=== PATIENT | male | born 1990 | race Caucasian/White ===

== ENCOUNTER 2018-01-25 13:51 | Emergency (ER) | payer OTHER, MEDICAID, SELFPAY ==
[2018-01-25 13:53] VITALS: BP 116/72; PULSE 72; RESP 18; TEMP 37.3; O2SAT 99; BMI 21.8
[2018-01-25] MEDS: Naproxen 500 MG Tablet PO (14:20)
--- NOTE | 2018-01-25 14:20 | RAD_ITS ---
STUDY: X-RAY - CERVICAL SPINE REASON FOR EXAM: Male, 27 years old. Injury. Pain. TECHNIQUE: 3 view(s) of the cervical spine were obtained. COMPARISON: None FINDINGS: Normal anterior atlantoaxial articulation. Normal odontoid process. Normal cervical lordosis. Normal vertebral bodies and endplates. Normal disc space heights. Normal visualized intervertebral neuroforamina. The soft tissue structures are unremarkable. RAD/Cerv Spine 2 or 3 Views IMPRESSION: Normal x-ray examination of the visualized cervical spine. Electronically Signed: Jorge L Barth MD at 14:48 EDT , Service support ,
--- NOTE | 2018-01-25 15:00 | ED.DCSUM_ITS ---
- ER Visit Summary Date of Service: 01/25/18 Chief Complaint: Neck pain History of Present Illness: The patient is a 27 M with no primary care physician. He reports that a great came down the back of his neck at work 2 days ago. Reports he is a sharp, stabbing pain is 1010 at worst 910 currently. Is worsened by walking and relieved by sleeping. He denies any paresthesias in his arms. No loss of consciousness. Physical Examination: Vitals: Stable. Afebrile. Neck: Mild diffuse tenderness palpation over his entire C-spine. There is an abrasion at approximately C7. There is no soft tissue swelling or contusion. Full ROM without difficulty. Back: No vertebral tenderness. General: A&O x 3. NAD. Cardiovascular exam: Regular rate and rhythm, no murmur, rub or gallop. Respiratory exam: Chest nontender. No crepitus. Clear to auscultation bilaterally. No wheezes or stridor. Abdominal exam: Soft, nontender, nondistended, normal bowel sounds. No pain in RUQ or LUQ specifically. No peritoneal signs. Extremity: Atraumatic. No pain with range of motion. Test Results: C-spine x-ray is negative. Emergency Department Course and Treatment: Patient is treated with naproxen. Treatment Plan: Patient will be discharged with naproxen. Instructed to follow- up with Workmen[employer] Compensation in 1 week for another exam. It is unclear whether he uses [facility] or [facility]. We were unable to reach his work to find this out either. He is given the numbers for both places. Disposition: To home in improved and stable condition. Impression: 1. Neck contusion. 2. Cervical strain. This note was generated with [employer] dictation software. It may contain incorrect words, spelling, and punctuation that were not noted in review of the chart prior to signing ED Disposition - Plan for ED Patient: Disposition: Home or Assisted Living Chief Complaint: Other, Pain/Inj Instructions: ED Sprain Strain Neck Prescriptions: Naproxen [Naprosyn] 500 mg PO BID #14 tablet [facility]errals: [facility] OF PHYSICIANS] - 1 Week [facility] [GROUP OF PHYSICIANS] - 1 Week
[2018-01-25 15:13] VITALS: BP 119/70; PULSE 69; RESP 16; O2SAT 100
--- NOTE | 2018-01-25 15:19 | ED.RN ---
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 LEFT MESSAGE AT [phone].
== END 2018-01-25 15:21 | disposition home or self-care (01) ==
PROVIDERS: Emergency Provider Emergency Medicine
DX: S16.1XXA Strain of muscle, fascia and tendon at neck level, initial encounter (principal); S10.93XA Contusion of unspecified part of neck, initial encounter; W22.8XXA Striking against or struck by other objects, initial encounter; Y93.9 Activity, unspecified; Y92.9 Unspecified place or not applicable; Y99.9 Unspecified external cause status; Z72.0 Tobacco use
CPT/HCPCS: 72040; 99283

== ENCOUNTER 2018-06-04 05:05 | Emergency (ER) | payer MEDICAID, SELFPAY ==
[2018-06-04 05:06] VITALS: BP 135/80; PULSE 99; RESP 17; TEMP 36.6; O2SAT 99; BMI 23.0
--- NOTE | 2018-06-04 05:16 | ED.DCSUM_ITS ---
- ER Visit Summary Date of Service: 06/04/18 Chief Complaint: [] Skin rash History of Present Illness: The patient is a 27 M complaining of skin rash for last 2 days gradual onset continuous diffuse hives and welts. He spent the night at his friend's house and thinks he might have picked up something. He does remember bit by bugs. No new exposures. He has been using hydrocortisone cream with no relief. No Benadryl usage. Never had this before. Physical Examination: [] Vital signs reviewed General: Well-nourished well-developed Head: Normocephalic atraumatic Eyes: Pupils equal round and reactive to light extraocular movements intact ENT: TMs clear no hemotympanum no trauma Neck: Nontender full range of motion Cardiovascular: Regular rate rhythm no murmurs normal S1-S2 Respiratory: No distress clear to auscultation bilaterally chest nontender Abdomen: Soft nontender nondistended normal bowel sounds no masses Back: Nontender no CVA tenderness Extremities: Nontender active range of motion ?4 extremities no trauma Skin: Patient has intermittent welts on his arms legs chest and back and abdomen. They are mild to moderate in nature. No infection Neuro alert oriented cranial nerves II through XII intact normal strength sensation reflexes Test Results: [] Emergency Department Course and Treatment: [] Given Benadryl in the department and prednisone. We will continue these at home. Will be put on a prednisone taper Treatment Plan: [] Disposition: [] Impression: [] Urticaria This note was generated with [employer] dictation software. It may contain incorrect words, spelling, and punctuation that were not noted in review of the chart prior to signing ED Disposition - Plan for ED Patient: Chief Complaint: Rash Referrals: Care Physician,No Primary [Primary Care Provider] -
--- NOTE | 2018-06-04 05:16 | ED.DEP ---
ED Disposition - Plan for ED Patient: Disposition: Home or Assisted Living Chief Complaint: Rash Instructions: ED Urticaria Prescriptions: Prednisone [Deltasone] 60 mg PO DAILY #15 tab Referrals: Yehuda Duffy MD [STAFF PHYSICIAN] -
[2018-06-04] MEDS: predniSONE 20 MG Tablet 60 MG PO (05:22)
[2018-06-04] MEDS: DiphenhydrAMINE 25 MG Capsule 50 MG PO (05:22)
== END 2018-06-04 05:25 | disposition home or self-care (01) ==
PROVIDERS: Emergency Provider Emergency Medicine
DX: L50.9 Urticaria, unspecified (principal); J45.909 Unspecified asthma, uncomplicated; Z72.0 Tobacco use
CPT/HCPCS: 99283

== ENCOUNTER 2018-07-02 15:00 | Outpatient (RCR) | payer MEDICAID, SELFPAY ==
--- NOTE | 2018-02-28 13:59 | HP.OTEVAL ---
Patient's Visit Information PAT BONILLA is a 27 year old M, referred to Occupational Therapy by DI TIM, with a diagnosis of left hand laceration with tendon and nerve IF/MF. Date of Evaluation: 02/26/18 Occupational Therapist: Katelin Clifton, OTR/Gen, CHT - Subjective Subjective: Pt attends OT session following a left tendon and digital nerve repair- pt fell while walking in his house with a glass jar- lacerating his tendon and nerve- pt underwent sx on February. Pt in need of custom dorsal blocking orthosis and following zone 3 FDS/FDP repair. Pt is limited with functional use of right hand at this time. - Pain left hand 3 - Objective Objective/Observation: pt painful with touch - ROM Shoulder: Right/left WNL Elbow: Right/left WNL Forearm: Right/left WNL Wrist: right limited- left WNL ROM Comments: Limited due to healing digital nerver repair and FDS/FDP repair-Digits Not tested at this time- will follow zone III protocol - Strength Strength Comments: will test at later date - Sensation Index: 3.84 Middle: 4.08 Rin.61 Little: 3.61 Sensation Comments: guarded with touch to hand and tip of finger - Hand/Wrist Evaluation Total Score of Pain & Functional Sections: 95 - Goals Goal:100% adherence to protocol: Yes Comment: Zone 3 tendon / digital nerve repair Goal:Daily scar massage when approriate: Yes Goal:ROM equal to unaffected hand: Yes Goal:Chamber Worker/Pinch strength at least 75% of unaffected hand: Yes Goal:No pain with affected hand use: Yes Goal:PIP Circumferences equal to unaffected hand: Yes Goal:Full use of affected hand in daily activities including: Yes Goal:Improvement in sensation documented by [place]-Alethea: Yes Goal:Decrease scar hypersensitivity: Yes - Rehabilitation General Assessment: Pt is S/P 1 week FDS/FDP repair. left IF ulnar Digital nerve repair with conduit, 3xx15 millimeters. left MF radial digital nerve with conduit, 3x15 millimeters. Repair of left MF ulnar digitial nerve with conduit, 2x15 millimeters. Repair of left IF FDS/FDP zone 3. Repair of left MF FDS/FDP zone 3. Repair left adductor Pollicis brevis muscles (intrinsic). Repair of left second lumbrical muscles (intrinsic). pt demo need for skilled OTR/L, CHT services to 1-2x week for 12 weeks, therapist will follow zone 3 flexor tendon protocol. Rehabilitation Potential: Good - Anticipated Interventions Anticipated Interventions: Early Active Motion, A/AAROM/PROM, Strengthening, Edema Control, Scar Care, Triggerpoint Release, Sensory Retraining, Wound Care, Modalities, Orthoses, Fine Motor Coord/Scottie - Visit Plan Frequency: 1-2x /Week Duration: 2 Months TEXT: Thank you for the opportunity to evaluate your patient. For Medicare and Medicare HMO plans, please review the plan of care and approve it. It will need to be FAXED BACK to us at [phone] for Medicare purposes. Please let me know if there are questions or concerns regarding this plan of care. Physician Signature: Date:
--- NOTE | 2018-04-02 15:44 | HP.OTREVAL ---
DI TIM, It has been my pleasure to treat PAT BONILLA over the last 7 visits for left hand laceration with tendon and nerve IF/MF. Please see the progress note below for an update on the occupational therapy plan of care! Subjective: pt states he is back to work- he states he is not able to work his hand while at work- and he only works his hand for about an hour at at time- he reports he is only in the orthosis while at work and off when he is at home- Objective/Function: left MCP IF 65. left MCP MF60. left MCP RF45. left MCP LF43. left PIP IF 20. left PIP MF 20. left PIP RF 45. left PIP LF 45. pt demo with scar adhesions limiting his active ROM. pt guarded with PROM Plan Frequency: 1-2x /Week Duration: 2 Months Plan: pt is 6 weeks s/p demo scar adhesions limiting functional ROM - pt advised to work hand more often with ex , AROM, PROM and blocking- pt demo understanding. pt vended elastomer for scar adhesions to wear at night, pt demo understanding- pt to increase OT session 2x week for 6 more weeks Anticipated Interventions Anticipated Interventions: Early Active Motion, A/AAROM/PROM, Strengthening, Edema Control, Scar Care, Triggerpoint Release, Sensory Retraining, Wound Care, Modalities, Orthoses, Fine Motor Coord/Scottie Please do not hesitate to contact me at [phone] by phone or if you have questions or concerns regarding this new plan of care! Sincerely, Katelin Clifton, OTR/L, CHT
--- NOTE | 2018-04-02 15:49 | OTREVAL_ITS ---
DI TIM, It has been my pleasure to treat PAT BONILLA over the last 7 visits for left hand laceration with tendon and nerve IF/MF. Please see the progress note below for an update on the occupational therapy plan of care! Subjective: pt states he is back to work- he states he is not able to work his hand while at work- and he only works his hand for about an hour at at time- he reports he is only in the orthosis while at work and off when he is at home- Objective/Function: left MCP IF 65. left MCP MF60. left MCP RF45. left MCP LF43. left PIP IF 20. left PIP MF 20. left PIP RF 45. left PIP LF 45. pt demo with scar adhesions limiting his active ROM. pt guarded with PROM Plan Frequency: 1-2x /Week Duration: 2 Months Plan: pt is 6 weeks s/p demo scar adhesions limiting functional ROM - pt advised to work hand more often with ex , AROM, PROM and blocking- pt demo understanding. pt vended elastomer for scar adhesions to wear at night, pt demo understanding- pt to increase OT session 2x week for 6 more weeks Anticipated Interventions Anticipated Interventions: Early Active Motion, A/AAROM/PROM, Strengthening, Edema Control, Scar Care, Triggerpoint Release, Sensory Retraining, Wound Care, Modalities, Orthoses, Fine Motor Coord/Scottie Please do not hesitate to contact me at [phone] by phone or Fax: if you have questions or concerns regarding this new plan of care! Sincerely, Katelin Clifton, OTR/L, CHT
--- NOTE | 2018-04-12 10:42 | OTREVAL_ITS ---
DI TIM, It has been my pleasure to treat PAT BONILLA over the last 9 visits for left hand laceration with tendon and nerve IF/MF. Please see the progress note below for an update on the occupational therapy plan of care! Subjective: pt arrives to session- no brace- states he is wearing debi wrap at work- states he is working long hours and sleeping- not really able to work with his hand every hour- states his wrsit has been bothersome- Objective/Function: Left ROM. IF MCP -15/85 PIP -15/70. DIP 0/40. MF MCP-30/ 90 PIP -20/70 DIP 45. RF MCP 0/85 PIP 0/90 DIP 0/55. LF MCP 0/75 PIP 0/80 DIP 0/50. pt demo with scar adhesions-that are limiting functional ROM - he has been given Elastomer and ed. to wear at night to assist in softening the scar- pt ed. on scar mtg using a golfball to soften scar tissue and adhesions. pt demo good understanding of blocking ex to IF and MF as well as PROM/ stretch of both flex/ext. pt increased complication of scar adhesions will prolong his recovery. Plan Frequency: 1-2x /Week Duration: 2 Months Plan: pt is 7 weeks S/P will contine to follow [place] tendon repair protocol Anticipated Interventions Anticipated Interventions: Early Active Motion, A/AAROM/PROM, Strengthening, Edema Control, Scar Care, Triggerpoint Release, Sensory Retraining, Wound Care, Modalities, Orthoses, Fine Motor Coord/Scottie Please do not hesitate to contact me at [phone] by phone or Fax: if you have questions or concerns regarding this new plan of care! Sincerely, Katelin Clifton, OTR/L, CHT
--- NOTE | 2018-05-01 10:43 | HP.OTREVAL ---
DI TIM, It has been my pleasure to treat PAT BONILLA over the last 13 visits for left hand laceration with tendon and nerve IF/MF. Please see the progress note below for an update on the occupational therapy plan of care! Subjective: pt states he his working his hand now about an hour and a half to two hours- states he is using his hand as much as he can. Pt arrives with no marie orthosis on- but states he uses it all the time Objective/Function: pt demo with. IF PIP 83 with stretch. PIP flex with blocking 70 DIP with stretch 50. MF PIP 80 degrees passive with blocking 45 degrees of flex. flex DIP 65 passive flex. pt repots using elastomer for scar at night. reports he is working with his hand only about an hour a day. pt has been advised to work with his hand every hour to gain ROM-. PTs PROM aslo has become limited- pt reports he does not stretch his finger much- pt states he does use the blocking brace about 10 min within that hour of working with his hand. PROM of IF PIP 70 degrees of flex MF PIP 80 degress of PIP flex. pt very painful with stretch- states he tries to stretch his fingers. Pt demo with scar adhesions, stiff PIPJ limiting functional use at this time. Plan Frequency: 1-2x /Week Duration: 2 Months Plan: pt is 9 weeks s/p and limited with functional ROM - painful in joints- noted decline in ROM - questionable on follow throught with HEP Anticipated Interventions Anticipated Interventions: Early Active Motion, A/AAROM/PROM, Strengthening, Edema Control, Scar Care, Triggerpoint Release, Sensory Retraining, Wound Care, Modalities, Orthoses, Fine Motor Coord/Scottie Please do not hesitate to contact me at [phone] by phone or if you have questions or concerns regarding this new plan of care! Sincerely, Katelin Clifton, OTR/L, CHT
--- NOTE | 2018-08-06 11:08 | HP.OT.NRP ---
HP - Discharge Summary - Patient Information PAT BONILLA was seen in my office for initial evaluation on 02/26/18. The following Plan of Care was established for this patient: Plan: cont to gain functional ROM of left composite fist. - Anticipated Interventions Anticipated Interventions: Early Active Motion, A/AAROM/PROM, Strengthening, Edema Control, Scar Care, Triggerpoint Release, Sensory Retraining, Wound Care, Modalities, Orthoses, Fine Motor Coord/Scottie This patient was last seen in our office 07/02/18. Pertinent comments regarding their Occupational therapy will appear below: PT has been seen for 17 visits with 5 total cancellations and No shows to apts. Pt was seen following laceration with repair. pt demo thick scaring to palm of hand, and limited composite fist. MF limitations with active flex of PIP and DIP. pt was instructed during his therapy on protocol procedure and scar mtg. Pt report compliance but made limited gains. pt is to marie tape finger while working to assist in composite fist. Due to timelapes in attending therapy sessions pt is currently D/C. At this point I will be discontinuing this patient from occupational therapy. I would be happy to see this patient again in the future if found appropriate by the physician. Thank you! Katelin Clifton, OTR/L, CHT
== END 2018-07-02 19:00 | disposition home or self-care (01) ==
LOC: OT 15:00
DX: S61.412D Laceration without foreign body of left hand, subsequent encounter (principal); S66.922D Laceration of unspecified muscle, fascia and tendon at wrist and hand level, left hand, subsequent encounter
CPT/HCPCS: 97035; 97110; 97140; 97166; 97530; 97760; 97763

== ENCOUNTER 2018-09-06 12:50 | Emergency (ER) | payer MEDICAID, SELFPAY ==
[2018-09-06 12:52] VITALS: BP 120/75; PULSE 89; RESP 14; TEMP 37.1; O2SAT 98; BMI 25.7
--- NOTE | 2018-09-06 13:02 | ED.VISSUMM ---
- ER Visit Summary Date of Service: 09/06/18 Chief Complaint: Respiratory illness History of Present Illness: The patient is a 27 M who presents with subjective fever, chills, sweats, nonproductive cough and wheezing. Illness started 1 week ago. He does complain of nasal congestion and postnasal drainage. He has history of asthma. His MDI has . He denies leg pain, swelling discoloration. He denies nausea, vomiting diarrhea. He does report headache. He denies photophobia, neck pain or neck stiffness. He denies myalgias or arthralgias. He does endorse change in voice. He states he has decreased from 1 pack/day to 1/2 pack/day over the past 2 months, and states he has not had a cigarette in 48 hours. Physical Examination: Patient has a hoarse voice. Vital signs are normal. Is afebrile and is not hypoxic. He appears ill but nontoxic. Nares patent with clear minimal nasal drainage and boggy nasal mucosa. Posterior pharynx reveals midline uvula without erythema or exudate. There is evidence of postnasal drainage. TMs are normal. Trach is midline. There is no cervical lymphadenopathy. There is no stridor. Heart is regular without murmur, gallop or rub. Lungs are remarkable for extra Tory wheezing with increased x-ray phase. There is no use of accessory muscles. Neuro exam is nonfocal. Test Results: None Emergency Department Course and Treatment: 4 puffs of metered-dose inhaler and 60 mg of prednisone. Since vital signs are normal based on a study published 20 years ago no patients who had normal vital signs had radiologic evidence of pneumonia. Furthermore literature does not support x-rays for exacerbation of asthma secondary to upper respiratory infection. Patient was reassessed at 1332. Slight wheeze with forced expiration only. Will discharge with prescription for prednisone burst, 40 mg a day Treatment Plan: Use his inhaler 2-4 hours while awake for the next 2 days then every 4 hours for the next 2 days then every 4-6 hours as needed. Patient was informed since he is a smoker may have a cough for 1 month. Disposition: Discharged home in stable improved condition Impression: Exacerbation of asthma secondary to upper respiratory infection This note was generated with [employer] dictation software. It may contain incorrect words, spelling, and punctuation that were not noted in review of the chart prior to signing ED Disposition - Plan for ED Patient: Disposition: Home or Assisted Living Chief Complaint: General Illness Instructions: ED Inhaler Use, ED Bronchitis Asthmatic Prescriptions: Prednisone [Deltasone] 40 mg PO DAILY #10 tab Referrals: Care Physician,No Primary [Primary Care Provider] - Jeanette Ndiaye [NON-STAFF] - 10-14 Days if not better Additional Instructions: Because you are a smoker you may have a cough for 4 weeks. It is in your best interest to quit smoking.
[2018-09-06] MEDS: predniSONE 20 MG Tablet 60 MG PO (13:17)
[2018-09-06 13:18] VITALS: PULSE 82; RESP 14; O2SAT 98
[2018-09-06 13:19] VITALS: O2SAT 98
[2018-09-06 14:06] VITALS: RESP 16
== END 2018-09-06 14:07 | disposition home or self-care (01) ==
PROVIDERS: Emergency Provider Emergency Medicine
DX: J45.901 Unspecified asthma with (acute) exacerbation (principal); J06.9 Acute upper respiratory infection, unspecified; F17.210 Nicotine dependence, cigarettes, uncomplicated
CPT/HCPCS: 99283

== ENCOUNTER 2018-10-21 11:37 | Emergency (ER) | payer MEDICAID, SELFPAY ==
[2018-10-21] VITALS (8 sets, daily range): BP systolic 129–139; BP diastolic 97–101; PULSE 81–95; RESP 14–16; TEMP 36.4; O2SAT 98–99; BMI 22.3
--- NOTE | 2018-10-21 11:53 | ED.VISSUMM ---
- ER Visit Summary Date of Service: 10/21/18 Chief Complaint: Depression History of Present Illness: The patient is a 27 M who presents with depression that became worse yesterday. Patient states he got into an argument with his mother and stepfather and told them that he was going to hurt himself. Patient states he called some friends who came over and talked to him and he feels better at this time. Patient saw his crisis counselor today who referred him to the emergency department. Crisis counselor filled out a pink slip which stated the patient had suicidal ideations and plans on stabbing himself. Currently, the patient denies any of this. Patient states he has a and stepchild to live for. Physical Examination: Vital signs are stable. Patient is afebrile. Patient is in no acute distress. Oral mucosa is pink and moist. Neck is supple. Trachea is midline. There is no JVD noted. Heart was regular rate and rhythm. Lungs are clear and equal bilateral. Abdomen is soft. Bowel sounds are normal. There is no tenderness. There is no guarding noted. Skin is warm dry. Cranial nerves II through XII are intact. There are no focal motor or sensory deficits noted. Patient is agitated but not combative. Patient currently denies any suicidal ideations. The remaining physical exam is within normal limits. Test Results: CBC and metabolic profile were within normal limits. Serum alcohol level was normal. Emergency Department Course and Treatment: This is counseling was in to evaluate the patient and feels the patient needs to be admitted for suicidal ideation. Patient will be transferred to a psychiatric facility. Disposition: Transfer to psychiatric facility Impression: 1. Depression with suicidal ideation and plan This note was generated with [employer] dictation software. It may contain incorrect words, spelling, and punctuation that were not noted in review of the chart prior to signing ED Disposition - Plan for ED Patient: Disposition: Psychiatric Hospital or Unit Diagnosis: Depression with suicidal ideation Referrals: Care Physician,No Primary [NON-STAFF] -
--- NOTE | 2018-10-21 12:18 | CM.ED ---
Social Work Note Discussed with physician who states that crisis pink slipped the pt to the hospital and he will have them evaluate. Jennifer Narayan, HANDLE BENDER, BI ARCHITECT
[2018-10-21 12:26] LABS: Absolute Lymphocyte Count 2.08 X10^3/ul (0.83-4.51); Basophil# 0.03 X10^3/uL; Basophil% 0.4 % (0-1); Eosinophil# 0.23 X10^3/uL; Eosinophils% 3.2 % (0-5); Hematocrit 48.4 % (40-54); Hemoglobin 16.5 g/dl (13.0-16.5); Lymphocyte # 2.08 X10^3/ul (4.0); Lymphocyte % 28.8 % (19-41); Mean Corp Hgb Conc 34.1 g/gl (32-36); Mean Corpuscular Hgb 28.5 pg (27.0-32.0); Mean Corpuscular Volume 83.7 fL (80-94); Monocyte# 0.92 X10^3/uL; Monocyte% 12.7 % (0-10); Neutrophil # 3.95 X10^3/uL (2.7-7.7); Neutrophil % 54.8 % (47-70); Platelet Count 230 K/mm3 (150-450); RBC Distribution Width SD 42.9 fl (35.1-43.9); Red Blood Count 5.78 M/mm3 (4.6-6.2); White Blood Count 7.2 K/mm3 (4.4-11.0)
[2018-10-21 12:28] LABS: POSITIVE COUNT NO; POSITIVE DIFFERENTIAL NO; POSITIVE MORPHOLOGY NO
[2018-10-21 12:40] LABS: Anion Gap 9 (5-15); BUN 18 mg/dL (7-18); BUN/Creat Ratio 17.8 RATIO (10-20); Calcium,Total 9.4 mg/dL (8.5-10.1); Chloride 104 mmol/L (98-107); Creatinine, Serum 1.01 mg/dL (0.70-1.30); EST Glomerular Filtration Rate 94 mL/min (>60); Est Glom Filt Rate - Afr Amer 113 mL/min (>60); Estimated Creatinine Clearance 112.77 ml/min; Glucose 108 mg/dL (74-106); Potassium 3.5 mmol/L (3.5-5.1); Sodium Level 137 mmol/L (136-145)
--- NOTE | 2018-10-21 13:48 | ED.RN ---
PT STATES THAT HE IS REFUSING [place] AND HE IS GOING HOME, THAT WE DO NOT HAVE THE RIGHT TO KEEP HIM HERE. MD HONG
--- NOTE | 2018-10-21 13:57 | ED.RN ---
OK PER MD FOR PT TO TAKE HIS OWN 250MG VALPROIC ACID. HAS THE MEDICATION. MEDICATION ADMINISTERED BY THIS RN.
--- NOTE | 2018-10-21 14:06 | ED.RN ---
PT CONTINUES TO VERBALIZE WANTING TO LEAVE.
--- NOTE | 2018-10-21 14:07 | ED.RN ---
WATER GIVEN, PT STATED HE WAS UNABLE TO URINATE AT THIS TIME. PT IS WILL TO GIVE U/A SOON HE CAN. PT CONTINUES TO VOICE WANTING TO LEAVE AND US NOT HAVING THE RIGHT TO KEEP HIM HERE. THIS RN EXPLAINED THAT HE WAS PINK SLIPPED. THOUGH PT VERBALIZES RIGHT TO LEAVE, HE IS RESPECTFUL AND COOPERATIVE WITH THIS RN.
[2018-10-21 14:32] LABS: Amphetamine Urine VISTA POSITIVE (<1000 ng/mL); Barbiturate Urine VISTA NEGATIVE (< 200 ng/mL); Benzodiazepine Urine VISTA NEGATIVE (< 200 ng/mL); Cocaine Urine VISTA NEGATIVE (< 300 ng/mL); Ecstacy Urine VISTA NEGATIVE (< 500 ng/mL); Methadone Urine VISTA NEGATIVE (< 300 ng/mL); PCP Urine VISTA NEGATIVE (< 25 ng/mL); THC Urine VISTA POSITIVE (< 50 ng/mL); Vista UDS pH Range 6
--- NOTE | 2018-10-21 15:13 | ED.RN ---
NURSE TO NURSE CALLED TO OHPJAMAL RN.
[2018-10-21] MEDS: LORazepam 2 MG/ML Syringe 1 MG IM (15:41)
--- NOTE | 2018-10-21 15:42 | ED.RN ---
PT BECOMING INCREASINGLY AGGITATED. PT STATES I AM NOT GOING ANYWHERE. JUST TAKE ME TO LONG TERM. PT REPEATING THIS STATEMENT. PT BEGINNING TO YELL LOUDER ABOUT NOT GOING ANYWHERE. PT INFORMED THAT HE HAS BEEN PINK SLIPPED. PT GIVEN ATIVAN IM WHICH PT AGREED TO TAKE
--- NOTE | 2018-10-21 16:15 | ED.RN ---
PT GAVE THIS NURSE PERMISSION TO SPEAK WITH HIS MOTHER ON THE PHONE AND UPDATE ON HIS CONDITION
--- NOTE | 2018-10-21 17:09 | ED.RN ---
MOTHER ASKED TO LEAVE PT ROOM BY STAFF. MOTHER WAS UPSETTING PT AND PT BEGAN YELLING AND CUSSING.
--- NOTE | 2018-10-21 17:14 | ED.RN ---
PT IS QUIET AND CALM NOW THAT IS NOT IN THE ROOM.
== END 2018-10-21 17:48 ==
PROVIDERS: Emergency Provider Emergency Medicine; Family Provider Family Medicine; PCP Family Medicine
DX: F32.9 Major depressive disorder, single episode, unspecified (principal); R45.851 Suicidal ideations; F90.9 Attention-deficit hyperactivity disorder, unspecified type; Z72.0 Tobacco use; Z79.899 Other long term (current) drug therapy
CPT/HCPCS: 36415; 80048; 80307; 80320; 85025; 96372; 99284; G0480

== ENCOUNTER 2019-08-04 12:35 | Emergency (ER) | payer MEDICAID, SELFPAY ==
[2018-10-21 11:38] VITALS: BMI 22.3
[2019-08-04 12:38] VITALS: BP 101/73; PULSE 95; RESP 18; TEMP 35.4; O2SAT 99; BMI 21.1
--- NOTE | 2019-08-04 12:47 | EKG12_ITS ---
Test Reason : OD/CP Blood Pressure : / mmHG Vent. Rate : 095 BPM Atrial Rate : 095 BPM P-R Int : 146 ms QRS Dur : 100 ms QT Int : 404 ms P-R-T Axes : 077 062 040 degrees QTc Int : 507 ms Normal sinus rhythm Prolonged QT Abnormal ECG Confirmed by HERIBERTO EASTMAN, SUNDEEP ([id number]), food editor JITENDRA JAIMES ([id number]) on 08/08/2019 11:18:28 AM Referred By: MONA/NEIL Confirmed By:SUNDEEP LOUIS MD
--- NOTE | 2019-08-04 13:36 | ED.DCSUM_ITS ---
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 EMS found patient unresponsive and gave him a total of 4mg of narcan. He had return of mentation and back to baseline. Patient is not sure who called 911. He admits to using meth and heroin today. He states he had been clean for 2 weeks. He is currently complaining of chills and vomiting. He denies any other complaints at this time. Past Medical History - Allergies and Home Meds Allergies/Adverse Reactions: Allergies Penicillins Allergy (Verified 08/04/19 12:53) Hives ibuprofen Adverse Reaction (Verified 08/04/19 12:53) Nausea Primary Care Physician: Gelacio Elliott MD [Primary Care Provider] - Past Medical History: - - IV drug use Surgical History: no surgical history Lives: Spouse/ Significant Other Smoking Status: Current every day smoker - Family History Maternal Family History: Reports: No pertinent history Review of Systems General: Reports: Chills, Malaise, Sweats. Denies: Fever Eyes: Denies: Visual changes - bilaterally, Diplopia ENT: Denies: Rhinorrhea, Sore throat Cardiovascular: Denies: Chest pain, Palpitations Respiratory: Denies: Dyspnea, Cough, Dyspnea on exertion Gastrointestinal: Reports: Nausea, Vomiting. Denies: Abdominal pain, Diarrhea, Melena, Hematochezia Genitourinary: Denies: Dysuria, Hematuria, Frequency Musculoskeletal: Reports: Myalgias. Denies: Back pain, Extremity Pain Skin: Denies: Rash, Wounds Neurological: Denies: Headache, Weakness, Numbness Psych: Denies: Suicidal thoughts, Suicidal ideations Physical Exam Vital Signs/Narrative: Vital Signs Temp Pulse Resp BP Pulse Ox 08/04/19 12:38 95.8 F L 95 18 101/73 99 Inital Vital Signs reviewed: Yes General: Well nourished, Well developed, No Acute Distress Head: Normocephalic, Atraumatic Eyes: Perrl, EOMI ENT: Moist mucous membranes, No rhinorrhea Neck: Supple, Nontender Cardiovascular: Regular rate, Regular rhythm, No murmurs Respiratory: No distress, CTA bilaterally, Chest nontender Abdomen: Soft, Nontender, Nondistended, Normal bowel sounds Back: Nontender, Normal Inspection Extremities: Nontender, No edema Skin: Normal color, No rash Neurological: Alert, Oriented x3, Cranial nerves II-XII grossly intact, Normal Strength, Normal Sensation Psychological: Normal affect, Normal Mood, Agitated Diagnostic/Tx/Re-eval - Rhythm Strip Rhythm Strip: Sinus Rhythm Rate: 95 Ectopy: None - EKG Initial EKG Interpretation: Sinus Rhythm, - - Normal sinus rhythm at a rate of 95 Normal NH interval QTc [address] segments normal - Medical Decision Making Patient is evaluated for an accidental overdose. He was found unresponsive. He received Narcan and had resolution of his. Patient is stable in the ED but does have some vomiting. He is given Zofran. Protocol EKG obtained. Case management is consulted to provide outpatient addition resources. Patient is monitored for life of Narcan. He remained stable. Patient is counseled on signs and symptoms requiring return to the emergency room. Patient verbalizes agreement and understand this plan. Patient discharged home in stable and improved condition. ED Disposition - Plan for ED Patient: Disposition: Home or Assisted Living Diagnosis: Accidental overdose of heroin Instructions: OVERDOSE, Opiate Referrals: Gelacio Elliott MD [Primary Care Provider] - Additional Instructions: STOP USING DRUGS. You almost today. You were given resources for detox and help with your addiction. Return to the ED if you need further help.
--- NOTE | 2019-08-04 13:59 | CM.ED ---
Social Work Consult: Substance Abuse Informant: Dr. Valadez Chief Complaint: I did not know the spoon had Heroine on it. Patient states to have been stressed lately and to have planned to take Meth but per patient Heroine was also mixed in with the Meth. Marital/Social History: to Leisa but was due to patient substance abuse. Patient stating to be trying to stay clean for relationship Living Situation: Lives with spouse. Support/Resources: Patient mother. Leisa was in the ED but left due to being frustrated with patient because of the overdose per patient. Patient denies any active counseling or outside resources. Patient stating to be aware of NA meeting in [place] and reporting intention to start attending the meetings. Patient stating to be aware of the 12 steps as well. Mental Health Treatment/History: Patient stating to have a mental health history and I don't want to talk about it. Substance Abuse History: Patient stating that substance of choice is Meth/amphetamines. Patient stating to have been clean for the past few weeks and to have relapsed today due to stress related to not getting a job. Patient stating I am just really stressed right now. Patient stating to have been in inpatient rehab for substance abuse 3-4 years ago. Risk to self/others: Patient denies any suicidal or homicidal thoughts/plans at this time. General Appearance/Behavior: Patient tearful throughout conversation and stating to be stressed. Patient would make some eye contact with this social media editor during assessment. Patient stating to be cold, noting that patient has multiple blankets on patient already. Educated patient that per the chart patient was given Narcan and this puts patient into withdrawal. Assessment: Met with patient in room. Introduced self as well as social media editor role. Patient reluctant to speak with this social media editor. Patient declining this social media editor setting up any substance abuse support for patient in the community. Attempted to broach topic of mental health and patient changing subject and stating I do not want to talk about it. Patient is okay with this social media editor leaving information about [facility] and other local resources for patient if patient would change mind. Active listening and support provided. Update Dr. Valadez and nursing staff on social work assessment. PLAN: Discharge to home. Chiquis TAVAREZ, TANNER
[2019-08-04 14:06] VITALS: BP 106/75; PULSE 97; RESP 25; O2SAT 99
[2019-08-04 14:23] VITALS: PULSE 75
== END 2019-08-04 14:29 | disposition home or self-care (01) ==
PROVIDERS: Emergency Provider Emergency Medicine; Family Provider Family Medicine; PCP Family Medicine
DX: T40.1X1A Poisoning by heroin, accidental (unintentional), initial encounter (principal); R11.2 Nausea with vomiting, unspecified; Y92.9 Unspecified place or not applicable; F17.200 Nicotine dependence, unspecified, uncomplicated; Z88.6 Allergy status to analgesic agent; Z88.0 Allergy status to penicillin
CPT/HCPCS: 93005; 99284; A4216; J2405

== ENCOUNTER 2022-04-01 19:30 | Emergency (ER) | payer MEDICAID, SELFPAY ==
[2022-04-01 19:31] VITALS: BP 131/93; PULSE 89; RESP 16; TEMP 36.6; O2SAT 100; BMI 25.7
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
--- NOTE | 2022-04-01 20:03 | RAD_ITS ---
STUDY: X-RAY - LEFT ANKLE REASON FOR EXAM: Male, 31 years old. injury , pain TECHNIQUE: 3 view(s) of the ankle. COMPARISON: None. FINDINGS: Normal visualized distal tibia and fibula. Normal medial and lateral malleoli. Normal tibiotalar articulation and ankle mortise. Normal visualized talus and calcaneus. The visualized subtalar, talonavicular, calcaneocuboid and tarsal articulations are normal. Diffuse soft tissue swelling. RAD/Ankle min 3 Views IMPRESSION: Soft tissue swelling without demonstrated fracture. Electronically Signed: Josse Moody MD (Brooks) at 20:19 EDT Reading Location ID and State: [facility] / [place] , Service support ,
[2022-04-01 20:20] VITALS: RESP 18
[2022-04-01] MEDS: Naproxen 250 MG Tablet 500 MG PO (20:34)
[2022-04-01] MEDS: Ondansetron ODT 4 MG Tablet 8 MG PO (20:35)
== END 2022-04-01 20:40 | disposition home or self-care (01) ==
PROVIDERS: Emergency Provider Emergency Medicine; PCP Family Medicine; Visit Provider Emergency Medicine
DX: S93.402A Sprain of unspecified ligament of left ankle, initial encounter (principal); X50.1XXA Overexertion from prolonged static or awkward postures, initial encounter; Y93.55 Activity, bike riding; Y92.410 Unspecified street and highway as the place of occurrence of the external cause; F17.210 Nicotine dependence, cigarettes, uncomplicated
CPT/HCPCS: 73610; 99283

== ENCOUNTER 2023-01-08 17:30 | Emergency (ER) | payer MEDICAID, SELFPAY ==
[2023-01-08 17:32] VITALS: BP 131/92; PULSE 97; RESP 16; TEMP 36.8; O2SAT 99; BMI 56.6
--- NOTE | 2023-01-08 18:23 | EDS_ITS ---
HPI HPI - GI History of Present Illness Chief Complaint: Abd Pain Narrative Narrative: 32-year-old male presents with his mother because he states I think I have an ulcer. He complains of epigastric pain and burning that he is had for the last few weeks. He used to take ibuprofen for pain. He denies any hematemesis, but did state he vomited 3 times today from the pain. No bloody bowel movements. No fevers or chills. He complains of burning sensation all the way up through his chest. No diaphoresis or shortness of breath. States he does not wake up with a sour taste in his mouth. No exacerbating or alleviating factors. [facility] Medical History (Updated 01/08/23 @ 19:43 by Jorge L Martinez MD) COPD (chronic obstructive pulmonary disease) Home Medications omeprazole 20 mg capsule,delayed release 20 mg PO BID #60 caps 01/08/23 [Rx Last Taken Unknown] Allergy/AdvReac Type Severity Reaction Status Date / Time Penicillins Allergy Hives Verified 01/08/23 17:31 ibuprofen AdvReac Nausea Verified 01/08/23 17:31 Social History Smoking Status: Current every day smoker tobacco type: cigarettes ROS ROS ED ROS Narrative Constitutional: No fever, no chills. HEENT: No sore throat. No neck pain. No loss of vision. No rhinorrhea. Cardiovascular: No chest pain. No palpitations. No pedal edema. Respiratory: No cough, no shortness of breath. Abdominal: Positive epigastric abdominal pain. Positive nausea and vomiting today x3, no hematemesis. No diarrhea. Burning sensation radiating up towards chest. Genitourinary: No dysuria. No hematuria. Musculoskeletal: No myalgias. No arthralgias. Neurologic: No headaches. No dizziness. No lightheadedness. Skin: No rash. No change in color. Psychiatric: No depression. No anxiety. EXAM Physical Exam Narrative Exam Narrative: Afebrile. Vital signs noted. HEENT: Normocephalic. Atraumatic. PERRL, EOMI. Neck soft and supple. No point tenderness or step off. Cardiovascular: Regular rate and rhythm. No murmurs, rubs, or gallops appreciated. Respiratory: No tachypnea. Lungs clear to auscultation bilaterally. Gastrointestinal: Abdomen soft, mild tenderness in epigastrium, negative Marques sign, with normoactive bowel sounds. No rebound or guarding. Neurological: Awake. Alert. Nonfocal, nonlateralizing. Skin: No rash. Normal color. No pallor. Musculoskeletal: No pedal edema. Full range of motion extremities. Const Vital Signs: 01/08/23 17:32 Temperature 98.2 F Temperature Source Temporal Pulse Rate 97 Respiratory Rate 16 Blood Pressure 131/92 H Blood Pressure Mean 105 Pulse Ox 99 Oxygen Delivery Method Room Air MDM MDM MDM Narrative Medical decision making narrative: In the differential diagnosis is gastritis versus peptic ulcer disease versus GERD. He may also have a pancreatitis. Lower on the differential diagnosis is gallstone pancreatitis as he does not have tenderness in the right upper quadrant, and he is not jaundiced, no fever. I will obtain laboratory work in the form of CBC, CMP, and lipase. He will be given a GI cocktail. If he shows improvement with this I have higher suspicion for gastritis versus peptic ulcer disease. He will be started on omeprazole and given the number to Dr. Pryor with gastroenterology for follow-up. I reviewed the patient's laboratory work, he has a normal white count of 6.4, he moglobin normal at 15.9, hematocrit 47.5, normal platelet count 293. CMP is grossly unremarkable except for glucose of 107 with a normal anion gap of 7. BUN normal at 13 with creatinine 0.8. LFTs show slight elevation with an AST of 51 and an ALT greater than 100. I think this is more nonspecific, may be from vomiting. Patient is not jaundiced. I do not feel imaging is indicated. His lipase is within normal limits. Hence, I do feel he probably has more gastritis versus peptic ulcer disease. Upon repeat examination at approximately 1940, he is resting in bed comfortably, stating he feels improved. I wrote him a prescription for omeprazole to take 20 mg twice a day for the next month. He will follow-up with gastroenterology as soon as possible. He was told to avoid smoking and avoid NSAID use. I do not feel he requires observation. Disposition is discharged home in stable condition. History & Record Review Discussion w/independent historian: Patient and Family Additional record(s) reviewed:: Prior outpatient record Lab Data Attestation: I reviewed the patient's lab results. Labs: Laboratory Results - last 24 hr 01/08/23 01/08/23 19:00 19:00 WBC 6.4 RBC 5.60 Hgb 15.9 Hct 47.5 MCV 84.8 MCH 28.4 MCHC 33.5 RDW Std Deviation 40.1 RDW Coeff of Marques 13.1 Plt Count 293 MPV 10.4 Immature Gran % (Auto) 0.500 Neut % (Auto) 53.2 Lymph % (Auto) 32.1 [place] % (Auto) 10.6 H Eos % (Auto) 2.7 Baso % (Auto) 0.9 Absolute Neuts (auto) 3.4 Absolute Lymphs (auto) 2.05 Nucleated RBC % 0 Sodium 140 Potassium 4.1 Chloride 105 Carbon Dioxide 28.0 Anion Gap 7 BUN 13 Creatinine 0.84 Estim Creat Clear Calc 146.79 Est GFR (MDRD) Af Amer 136 Est GFR (MDRD) Non-Af 112 BUN/Creatinine Ratio 15.5 Glucose 107 H Calcium 9.6 Total Bilirubin 0.30 AST 51 H ALT 105 H Alkaline Phosphatase 87 Total Protein 6.7 Albumin 3.5 Globulin 3.2 Albumin/Globulin Ratio 1.1 Lipase 45 Discharge Plan Triage Chief Complaint: Abd Pain ED Provider: Jorge L Martinez Dx/Rx/DC Orders Clinical Impression: Gastritis, Peptic ulcer disease, Epigastric pain Instructions: ED Gastritis (Adult), ED PUD, ED Epigastric Pain Uncertain Cause Prescriptions: New omeprazole 20 mg capsule,delayed release(DR/EC) 20 mg PO BID Qty: 60 0RF Primary Care Provider: Gelacio Elliott Referrals: Gelacio Elliott MD [Primary Care Provider] - Trung Pryor DO [Med Staff - Active Staff] - As soon as possible Activity Restrictions/Additional Instructions: Stop smoking. Avoid NSAID use. Take medication as prescribed. Disposition Disposition: Home, Self Care
[2023-01-08] MEDS: Mag Hydrox/Al Hydrox/Simeth 30 ML UDC PO (18:52)
[2023-01-08 19:13] LABS: Absolute Lymphocyte Count 2.05 X10^3/uL (0.83-4.51); Absolute Neutrophil Count 3.4 X10^3/uL (2.0-7.7); Basophil# 0.06 X10^3/uL; Basophil% 0.9 % (0-1); Eosinophil# 0.17 X10^3/uL; Eosinophils% 2.7 % (0-5); Hematocrit 47.5 % (40-54); Hemoglobin 15.9 g/dL (13.0-16.5); Lymphocyte # 2.05 X10^3/ul (0.83-4.51); Lymphocyte % 32.1 % (19-41); Mean Corp Hgb Conc 33.5 g/dL (32-36); Mean Corpuscular Hgb 28.4 pg (27.0-32.0); Mean Corpuscular Volume 84.8 fL (80-94); Mean Platelet Vol. 10.4 fl (6.2-12.0); Monocyte# 0.68 X10^3/uL; Monocyte% 10.6 % (0-10); NRBC Flagged by Analyzer 0 % (0-5); Neutrophil % 53.2 % (47-70); Platelet Count 293 K/mm3 (150-450); RBC Distribution Width CV 13.1 % (11.6-14.6); RBC Distribution Width SD 40.1 fl (35.1-43.9); White Blood Count 6.4 K/mm3 (4.4-11.0)
[2023-01-08 19:34] LABS: ALB/GLOB Ratio 1.1 RATIO (0.9-2.4); AST(SGOT) 51 U/L (15-37); Alanine Aminotransfer ALT/SGPT 105 U/L (16-61); Albumin, Serum 3.5 g/dL (3.2-5.0); Alkaline Phosphatase 87 U/L (45-117); Anion Gap 7 (5-15); BUN 13 mg/dL (7-18); BUN/Creat Ratio 15.5 RATIO (10-20); Calcium,Total 9.6 mg/dL (8.5-10.1); Chloride 105 mmol/L (98-107); Creatinine, Serum 0.84 mg/dL (0.70-1.30); EST Glomerular Filtration Rate 112 mL/min (>60); Est Glom Filt Rate - Afr Amer 136 mL/min (>60); Estimated Creatinine Clearance 146.79 ml/min; Globulin 3.2 g/dL (2.2-4.2); Glucose 107 mg/dL (74-106); Lipase 45 U/L (13-75); Potassium 4.1 mmol/L (3.5-5.1); Protein, Total 6.7 g/dL (6.4-8.2); Sodium Level 140 mmol/L (136-145)
[2023-01-08 19:54] VITALS: BP 135/69; PULSE 82; RESP 16; O2SAT 95
== END 2023-01-08 19:54 | disposition home or self-care (01) ==
PROVIDERS: Emergency Provider Emergency Medicine; PCP Family Medicine; Visit Provider Emergency Medicine
DX: K29.70 Gastritis, unspecified, without bleeding (principal); J44.9 Chronic obstructive pulmonary disease, unspecified; K27.9 Peptic ulcer, site unspecified, unspecified as acute or chronic, without hemorrhage or perforation; R10.13 Epigastric pain; F17.210 Nicotine dependence, cigarettes, uncomplicated; Z79.899 Other long term (current) drug therapy
CPT/HCPCS: 80053; 83690; 85025; 99284; A4216

== ENCOUNTER 2023-05-05 20:58 | Emergency (ER) | payer BC, MEDICAID, SELFPAY ==
[2023-05-05 21:00] VITALS: BP 112/79; PULSE 67; RESP 16; TEMP 36.4; O2SAT 97; BMI 25.2
[2023-05-05 21:02] VITALS: BP 112/79; PULSE 67; RESP 16; TEMP 36.4; O2SAT 97
--- NOTE | 2023-05-05 21:23 | EDS_ITS ---
HPI <DAILY Barcenas - Last Filed: 05/05/23 22:02> History of Present Illness Chief Complaint: Sore Throat Narrative Narrative: Patient is 32-year-old male with no significant medical history, patient presents emerged part with 2 days of sore throat. Patient states the pain is worse with swallowing. He denies any shortness of breath. Patient states that he does have some drainage, and sometimes he feels like he is choking. He denies any sick contacts, denies any fever or chills. Patient denies any sick contacts. PFSH <DAILY Barcenas - Last Filed: 05/05/23 22:02> [facility] Medical History (Updated 05/05/23 @ 22:[address] Luther San MD) COPD (chronic obstructive pulmonary disease) Home Medications NK 05/05/23 [History Last Taken Unknown] Allergy/AdvReac Type Severity Reaction Status Date / Time Penicillins Allergy Hives Verified 05/05/23 21:03 ibuprofen AdvReac Nausea Verified 05/05/23 21:03 Social History Smoking Status: Current every day smoker tobacco type: cigarettes ROS <DAILY Barcenas - Last Filed: 05/05/23 22:02> ROS ED ROS Narrative Constitutional: Negative for fever, chills, weight loss, weakness Eyes: Negative for vision loss, vision change, double vision ENT: Negative for any ear pain, congestion. Positive sore throat, painful swallowing Cardiovascular: Negative for any chest pain, tightness, palpitations Respiratory: Negative for any cough, sputum production, hemoptysis, dyspnea, dyspnea on exertion, orthopnea Gastrointestinal: Negative for any abdominal pain, nausea, vomiting, diarrhea, constipation, blood in stool, blood in vomit : Negative for any urinary frequency, dysuria, retention, blood in urine Muscle skeletal: Negative for any muscle joint pain, stiffness, myalgias, arthralgias, neck pain, back pain Neurological: Negative for any headache, syncope, numbness or tingling, dizziness Skin: Negative for any rashes, lumps, itching, abrasions, lacerations Psychiatric: Negative for any depression, anxiety, stress, suicidal ideation, homicidal ideation Hematologic: Negative for any easy bruising, excessive bruising, easy bleeding Allergies: Negative for any eczema, hives, rash EXAM <DAILY Barcenas - Last Filed: 05/05/23 22:02> Physical Exam Narrative Exam Narrative: Vital signs reviewed. HEET: Head normocephalic atraumatic, TMs clear bilaterally. Posterior pharynx is clear, moist mucous membranes. Nares clear bilaterally. Tonsils show no significant signs of inflammation. There is no exudate. Patient does have some cobblestone appearance to the back of his throat consistent with some drainage. Patient has no stridor. No crepitus. No unilateral swelling. Neck: Supple with no lymphadenopathy or tenderness. No signs of meningismus, negative jolt sign. Cardiac: Regular rate and rhythm no murmurs gallops or rubs, equal peripheral pulses bilaterally. Respiratory: Lungs clear to auscultation bilaterally. No chest tenderness. Abdomen: Soft, nontender, nondistended. No abdominal bruit or pulsatile masses. No hepatosplenomegaly Extremities: No peripheral edema, no signs of gross trauma or deformity. Active full range of motion of all extremities. Neuro: Cranial nerves II through XII intact, no focal neurological deficits. Skin: Clean dry and intact with no rash, purpura, petechiae, vesicles or pustules. Backs/flank: No CVA tenderness, no midline spinal tenderness, no deformity. Psych: Normal mood and affect. No SI, HI or acute psychosis. Const Vital Signs: 05/05/23 21:00 05/05/23 21:02 Temperature 97.5 F L 97.5 F L Temperature Source Temporal Temporal Pulse Rate 67 67 Respiratory Rate 16 16 Blood Pressure 112/79 112/79 Blood Pressure Mean 90 90 Pulse Ox 97 97 Oxygen Delivery Method Room Air Room Air <Dr. Luther San MD - Last Filed: 05/05/23 22:44> Physical Exam Const Vital Signs: 05/05/23 21:00 05/05/23 21:02 Temperature 97.5 F L 97.5 F L Temperature Source Temporal Temporal Pulse Rate 67 67 Respiratory Rate 16 16 Blood Pressure 112/79 112/79 Blood Pressure Mean 90 90 Pulse Ox 97 97 Oxygen Delivery Method Room Air Room Air MDM <DAILY Barcenas - Last Filed: 05/05/23 22:02> MDM Treatment and Re-Evaluation :: Patient appears generally well, patient appears nontoxic, vital signs are stable. Patient presents to the emergency department with 2 days of sore throat. Patient denies any fever or chills. Patient is in no respiratory distress. Patient will have a rapid strep completed. My suspicion of strep is low. Patient has no unilateral swelling, no evidence of peritonsillar abscess. Patient sore throat could be coming from postnasal drainage. Patient continues to complain about his sore throat, patient's rapid strep was negative. Patient secondary to difficulty swallowing, increased pain, patient received a CT scan of the soft tissue neck with IV contrast. <Dr. Luther San MD - Last Filed: 05/05/23 22:44> [facility] MDM Narrative Medical decision making narrative: I have personally performed a face to face assessment of the patient and have reviewed the MARVA Note. I performed a substantive portion of the visit including all aspects of the following. My amaro findings include: History is 32-year-old male complaint sore throat. Able to swallow. Complaining primarily of pain. Evaluated patient with our NANOTECHNOLOGY ENGINEERING TECHNOLOGIST. Exam is [32-year-old male vital signs stable afebrile. Pulse ox 97% room air. Patient is not septic or toxic. Is not hypoxic. He is in no distress. H EENT exam posterior pharynx normal. TMs normal. Able to swallow. No drooling. No stridor. Mild tracheal tenderness. No lymphadenopathy. No meningismus. No swelling. Lungs clear to auscultation bilaterally. Heart regular rhythm rate about 70 no murmur. Chest wall nontender. Abdomen soft nontender. Moving all 4 extremities. Nontender no edema. He is awake and alert.] Medical Decision Making [rapid strep was negative. Patient was able to swallow a glass of water but was complaining of substantial pain. I had ordered a CT soft tissue of his neck with IV contrast. Patient was only here a little over an hour. He got upset did not want to wait for the test and walked out and did not even wait to sign the discharge paperwork.] Other additions or changes: [None] Discharge Plan Triage Chief Complaint: Sore Throat ED Midlevel Provider: Yehuda Olvera ED Provider: Luther San Dx/Rx/DC Orders Clinical Impression: Eloped from emergency department, Pharyngitis Prescriptions: No Action NK Primary Care Provider: Gelacio Elliott Referrals: Gelacio Elliott MD [Primary Care Provider] - Disposition Disposition: Elopement
== END 2023-05-05 23:28 | disposition left against medical advice (07) ==
PROVIDERS: Emergency Provider Emergency Medicine; PCP Family Medicine; Visit Provider Emergency Medicine
DX: J02.9 Acute pharyngitis, unspecified (principal); J44.9 Chronic obstructive pulmonary disease, unspecified; F17.210 Nicotine dependence, cigarettes, uncomplicated
CPT/HCPCS: 87880; 99282

== ENCOUNTER 2023-05-26 18:49 | Emergency (ER) | payer BC, MEDICAID, SELFPAY ==
[2023-05-26 18:50] VITALS: BP 141/89; PULSE 83; RESP 34; TEMP 36.6; O2SAT 100
[2023-05-26 18:54] VITALS: BP 141/89; PULSE 89; RESP 23; O2SAT 97
--- NOTE | 2023-05-26 19:07 | EKG12_ITS ---
Test Reason : SOB Blood Pressure : / mmHG Vent. Rate : 082 BPM Atrial Rate : 082 BPM P-R Int : 164 ms QRS Dur : 096 ms QT Int : 392 ms P-R-T Axes : 064 047 056 degrees QTc Int : 457 ms Normal sinus rhythm Nonspecific T wave abnormality Abnormal ECG Confirmed by EDMUND EASTMAN, CHRISTIANO ([id number]), supervising film or videotape editor CAROLE MONAE ([id number]) on 05/29/2023 11:47:24 AM Referred By: Confirmed By:WOLFGANG SHAFFER MD
[2023-05-26] MEDS: Ipratropium/Albuterol Sulfate 3 ML AMPUL.NEB INHALATION (19:14)
[2023-05-26 19:15] VITALS: PULSE 102; RESP 20
[2023-05-26] MEDS: MethylPREDNISolone 125 MG/2 ML Vial IV (19:22)
[2023-05-26 19:27] VITALS: O2SAT 96
[2023-05-26 19:28] VITALS: BMI 27.1
[2023-05-26 19:32] VITALS: BP 147/81; PULSE 97; RESP 25; TEMP 37; O2SAT 96
--- NOTE | 2023-05-26 19:35 | RAD_ITS ---
INDICATION: dyspnea EXAMINATION/TECHNIQUE: X-RAY - XR Chest 1 View COMPARISON: November 16, 2015. FINDINGS: LINES/DEVICES: None. LUNGS: No consolidation, edema or effusion. No pneumothorax. MEDIASTINUM AND CARDIOVASCULAR STRUCTURES: Cardiac silhouette not enlarged. Central airways and mediastinal contour are stable. BONES AND SOFT TISSUES: Stable. RAD/Chest 1 View (Portable) IMPRESSION: No radiographic evidence of acute cardiopulmonary disease. Electronically Signed: Manny Peña MD at 19:51 EDT ,
[2023-05-26 19:59] LABS: Absolute Lymphocyte Count 2.55 X10^3/uL (0.83-4.51); Absolute Neutrophil Count 4.7 X10^3/uL (2.0-7.7); Basophil# 0.05 X10^3/uL; Basophil% 0.6 % (0-1); Eosinophils% 2.5 % (0-5); Hematocrit 45.8 % (40-54); Hemoglobin 15.3 g/dL (13.0-16.5); Lymphocyte # 2.55 X10^3/ul (0.83-4.51); Lymphocyte % 31.3 % (19-41); Mean Corp Hgb Conc 33.4 g/dL (32-36); Mean Corpuscular Hgb 28.7 pg (27.0-32.0); Mean Corpuscular Volume 85.8 fL (80-94); Mean Platelet Vol. 10.5 fl (6.2-12.0); Monocyte# 0.66 X10^3/uL; Monocyte% 8.1 % (0-10); NRBC Flagged by Analyzer 0 % (0-5); Neutrophil # 4.66 X10^3/uL (2.7-7.7); Platelet Count 295 K/mm3 (150-450); RBC Distribution Width CV 13.5 % (11.6-14.6); RBC Distribution Width SD 41.5 fl (35.1-43.9); Red Blood Count 5.34 M/mm3 (4.6-6.2); White Blood Count 8.2 K/mm3 (4.4-11.0)
[2023-05-26 20:15] LABS: Anion Gap 6 (5-15); BUN 13 mg/dL (7-18); BUN/Creat Ratio 13.6 RATIO (10-20); Calcium,Total 9.1 mg/dL (8.5-10.1); Chloride 108 mmol/L (98-107); Creatinine, Serum 0.95 mg/dL (0.70-1.30); EST Glomerular Filtration Rate 97 mL/min (>60); Est Glom Filt Rate - Afr Amer 117 mL/min (>60); Estimated Creatinine Clearance 122.53 ml/min; Glucose 97 mg/dL (74-106); Potassium 3.8 mmol/L (3.5-5.1); Sodium Level 140 mmol/L (136-145); Troponin-I HS 3 pg/mL (3.0-78.0)
--- NOTE | 2023-05-26 21:09 | EDS_ITS ---
HPI History of Present Illness Chief Complaint: Shortness of Breath Onset/Context/Timing Onset: Today Context: Gradual Onset Timing: Continuous Maximum Severity: Severe Narrative Narrative: Patient has a history of COPD and lung cancer. Presents with increasing shortness of breath today. Denies cough or sputum. Denies fever or chest pain. Nebulizers have not helped so far [facility] Medical History COPD (chronic obstructive pulmonary disease) Home Medications prednisone 20 mg tablet 60 mg (3 x 20 mg) PO DAILY #15 TABLETS 05/26/23 [Rx Last Taken Unknown] Allergy/AdvReac Type Severity Reaction Status Date / Time Penicillins Allergy Hives Verified 05/26/23 18:52 ibuprofen AdvReac Nausea Verified 05/26/23 18:52 Social History Smoking Status: Former smoker ROS ROS ED Constitutional Constitutional ED: Denies chills or fever(s) Eyes Eyes: Denies blurry vision ENT ENT ED: Denies ear pain Cardiovascular Cardiovascular: Denies chest pain Respiratory/Chest Respiratory/Chest: Reports cough and dyspnea Gastrointestinal Gastrointestinal: Denies abdominal pain Genitourinary Genitourinary ED: Denies dysuria Musculoskeletal Musculoskeletal: Denies arthralgias or back pain Integumentary Denies abscess Neurologic Neurologic: Denies headache(s) Psychiatric Psychiatric: Denies anxiety Endocrine Endocrinology: Denies cold intolerance Allergic/Immunologic Allergic/Immunologic ED: Denies mouth swelling EXAM Physical Exam Const Vital Signs: 05/26/23 18:50 05/26/23 18:54 05/26/23 19:15 Temperature 97.8 F Temperature Source Temporal Pulse Rate 83 89 102 H Respiratory Rate 34 H 23 H 20 H Respiratory Effort Respiratory Depth Respiratory Pattern Blood Pressure 141/89 H 141/89 H Blood Pressure Mean 106 106 Pulse Ox 100 97 Oxygen Delivery Method Room Air Room Air 05/26/23 19:27 05/26/23 19:32 Temperature 98.6 F Temperature Source Temporal Pulse Rate 97 Respiratory Rate 25 H Respiratory Effort Short of Breath Respiratory Depth Normal Respiratory Pattern Tachypnea Blood Pressure 147/81 H Blood Pressure Mean 103 Pulse Ox 96 Oxygen Delivery Method Room Air Room Air Positive well nourished and well developed General Appearance ED: well developed HEENT Reports moist mucous membranes Eyes EOMs intact bilaterally Resp Auscultation: diminished lung sounds Cardio regular rate, regular rhythm, S1 normal heart sound and S2 normal heart sound GI normal to inspection, nondistended, normoactive bowel sounds Extremity normal to inspection General Extremety ED: Negative for edema or tenderness General Extremity: Negative for edema Neuro oriented x3 Psych mental status grossly normal Skin no rashes or lesions noted MDM MDM MDM Narrative Medical decision making narrative: EKG showed sinus rhythm. Nonspecific T wave changes. No S1 Q3 T3 pattern. PERC negative. X-ray showed no acute abnormality. This was interpreted by the radiologist and myself. Basic labs unremarkable. Troponin normal. COVID and influenza testing negative. He was treated with a breathing treatment as well as Solu-Medrol. On reevaluation, lungs are clear. He is feeling better and requesting discharge. Continue nebulizers at home. We will prescribe a burst therapy of prednisone. Return for any new or worsening issues. Disposition discharged home Impression #1 COPD exacerbation Lab Data Attestation: I reviewed the patient's lab results. Labs: Laboratory Results - last 24 hr 05/26/23 19:25 WBC 8.2 RBC 5.34 Hgb 15.3 Hct 45.8 MCV 85.8 MCH 28.7 MCHC 33.4 RDW Std Deviation 41.5 RDW Coeff of Marques 13.5 Plt Count 295 MPV 10.5 Immature Gran % (Auto) 0.500 Neut % (Auto) 57.0 Lymph % (Auto) 31.3 Butler % (Auto) 8.1 Eos % (Auto) 2.5 Baso % (Auto) 0.6 Absolute Neuts (auto) 4.7 Absolute Lymphs (auto) 2.55 Nucleated RBC % 0 Sodium 140 Potassium 3.8 Chloride 108 H Carbon Dioxide 26.0 Anion Gap 6 BUN 13 Creatinine 0.95 Estim Creat Clear Calc 122.53 Est GFR (MDRD) Af Amer 117 Est GFR (MDRD) Non-Af 97 BUN/Creatinine Ratio 13.6 Glucose 97 Calcium 9.1 Troponin I High Sens 3 Radiography Diagnostic Testing: Clinical Impression(s) from Imaging Studies Chest X-Ray 05/26/23 19:35 IMPRESSION: No radiographic evidence of acute cardiopulmonary disease. Electronically Signed: Manny Peña MD at 19:51 EDT , Discharge Plan Triage Chief Complaint: Shortness of Breath ED Provider: Juancho Holley Dx/Rx/DC Orders Instructions: ED Bronchitis with Wheezing (Adult) Prescriptions: New prednisone 20 mg tablet 60 mg PO DAILY Qty: 15 0RF Primary Care Provider: Dacia Camejo Referrals: Dacia Camejo MD [Primary Care Provider] - Disposition Disposition: Home, Self Care
[2023-05-26 21:13] VITALS: BP 134/81; PULSE 89; RESP 16; TEMP 36.3; O2SAT 96
== END 2023-05-26 21:21 | disposition home or self-care (01) ==
PROVIDERS: Emergency Provider Emergency Medicine; PCP Family Medicine; Visit Provider Emergency Medicine
DX: J44.1 Chronic obstructive pulmonary disease with (acute) exacerbation (principal); Z20.822 Contact with and (suspected) exposure to COVID-19; Z87.891 Personal history of nicotine dependence; Z85.118 Personal history of other malignant neoplasm of bronchus and lung
CPT/HCPCS: 71045; 80048; 84484; 85025; 87428; 93005; 94640; 96374; 99285; A4216

== ENCOUNTER 2023-10-17 11:03 | Emergency (ER) | payer BC, MEDICAID, SELFPAY ==
[2023-10-17 11:03] VITALS: BP 127/78; PULSE 84; RESP 16; TEMP 36.5; O2SAT 100; BMI 26.7
--- NOTE | 2023-10-17 11:21 | EDS_ITS ---
HPI History of Present Illness Chief Complaint: Back Informant: patient Narrative Narrative: Patient complains of back pain. Patient states he felt fine until 2 days ago when he tripped in a groundhog hole. He fell and stumbled. He did not hit his back. But it has been sore since. It was not that bad initially. But since then he states every now and then it spasms. When it spasms he seems to get pain and numbness that shoots down his legs. But it is not constantly numb. He has never had bowel or bladder dysfunction. He is moving bowels normally with no incontinence. He is urinating normally and feels he fully empties. He is not urinating frequently. He has had no fevers chills. No IV drug use. No history of back problems. He is eating and drinking well. [facility] Medical History COPD (chronic obstructive pulmonary disease) Home Medications prednisone 20 mg tablet 60 mg (3 x 20 mg) PO DAILY #15 TABLETS 05/26/23 [Rx Last Taken Unknown] cyclobenzaprine 10 mg tablet 10 mg PO TID PRN Muscle Spasm #15 TABLETS 10/17/23 [Rx Last Taken Unknown] prednisone 20 mg tablet 60 mg (3 x 20 mg) PO DAILY #15 TABLETS 10/17/23 [Rx Last Taken Unknown] Allergy/AdvReac Type Severity Reaction Status Date / Time Penicillins Allergy Hives Verified 10/17/23 11:03 ibuprofen AdvReac Nausea Verified 10/17/23 11:03 Social History Smoking Status: Former smoker ROS ROS ED ROS Narrative A complete review of systems was performed and is negative except as documented in the history of present illness. Some specific details below. Constitutional: No recent fevers or chills. No recent infections or skin infections.. Patient has not generally felt ill. ENT: No sinus pressure or pain. No nasal discharge. CV: No chest pain, pressure or aching. No palpitations or irregular beats. Patient has not been presyncopal or syncopal. He has pain in his posterior central thoracic spine but not in his chest. Respiratory: No trouble breathing. No cough. No wheezing. No sputum production. No pain with breathing. He is not coughing. He reports a history of COPD but is not having any symptoms. GI: No abdominal pain. No nausea vomiting diarrhea. No blood in stool. No loss of bowel control. No history of AAA. : No frequency dysuria or hematuria. No incontinence or urinary retention. Musculoskeletal: See history of present illness. Skin: No rash. No diaphoresis. No vesicles. Neuro: No weakness. Patient does get intermittent spasms that seem to radiate down his spine across his buttock and into the top part of his legs. But this is intermittent and they last for a brief moment. Endocrine: No polyuria or polydipsia. EXAM Physical Exam Narrative Exam Narrative: CONSTITUTIONAL: Patient is nontoxic in appearance. The patient looks comfortable. Work of breathing looks normal. HEENT: No notable trauma. Mucous membranes moist. EYES: No conjunctival injection. No pallor. NECK: No meningismus. No JVD. CARDIOVASCULAR: Regular rate. Regular rhythm. No notable murmur. No JVD. No muffled tones and pulses are normal x 4. RESPIRATORY: No respiratory distress. Breathing is unlabored. No wheezes. No rhonchi. No rales. No pain with a deep breath. GASTROINTESTINAL: Not distended. Bowel sounds are normal. No tenderness. GENITOURINARY: No tenderness over the bladder. No CVA tenderness. Bladder is not palpable and the patient is thin. MUSCULOSKELETAL: No visible trauma. No peripheral edema. No cord. No tenderness along the deep venous system. No asymmetry. Distal pulses are intact. Patient does have some tenderness to the lower thoracic spine. This really around T11- 12. Not really paraspinal tenderness at this time although he states when he gets the spasm it seems more on the side. There is no step-off. The tenderness is mild but present. NEUROLOGICAL: Patient is alert and oriented. No focal deficit noted. Patient can stand on toes and heels and do squats. He got up off the bed quite easily and walked in the room. No indication of weakness. I am not getting any sensory change in his legs at this time. He states the numbness and pain occur intermittently and are not there currently. He thinks it is related to spasm. Patellar reflex 2+ bilaterally and equal Achilles reflex 1?2+ bilaterally and equal. SKIN: No noted rashes. No diaphoresis. No vesicles noted. No notable pallor. PSYCHIATRIC: Patient is calm. Mood is appropriate. Const Vital Signs: 10/17/23 11:03 Temperature 97.7 F L Temperature Source Temporal Pulse Rate 84 Respiratory Rate 16 Blood Pressure 127/78 H Blood Pressure Mean 94 Pulse Ox 100 Oxygen Delivery Method Room Air MDM MDM MDM Narrative Medical decision making narrative: My independent interpretation of the patient's three-view x-ray of thoracic spine shows no acute process. Final reading is normal x-ray examination of thoracic spine. Patient ended up leaving while we had stroke team. He did not want to wait longer. I was not able to talk to them. We had talked about starting muscle relaxants and steroids prior assuming his x-rays were normal. He evidently is now out front and he would like to get his prescriptions. We will do that at this time. Patient has intermittent radicular symptoms. No bowel bladder dysfunction. His gait is normal. I do not think he needs MRI at this point. Radiography Diagnostic Testing: Clinical Impression(s) from Imaging Studies Thoracic Spine X-Ray 10/17/23 11:30 IMPRESSION: Normal x-ray examination of the thoracic spine. Electronically Signed: Blayne Barclay MD at 12:01 EST , Discharge Plan Triage Chief Complaint: Back ED Provider: Dayron Lopez Dx/Rx/DC Orders Clinical Impression: Strain of thoracic spine, Fall from slip, trip, or stumble Instructions: ED Back Sprain/Strain Prescriptions: New cyclobenzaprine [cyclobenzaprine] 10 mg tablet 10 mg PO TID PRN (Reason: Muscle Spasm) Qty: 15 0RF prednisone 20 mg tablet 60 mg PO DAILY Qty: 15 0RF No Action prednisone 20 mg tablet 60 mg PO DAILY Qty: 15 0RF Primary Care Provider: Dacia Camejo Referrals: Dacia Camejo MD [Primary Care Provider] - 3-5 Days if not improving Disposition Disposition: [facility] Discharge Date/Time: 10/17/23 13:35
--- NOTE | 2023-10-17 11:30 | RAD_ITS ---
STUDY: X-RAY - THORACIC SPINE REASON FOR EXAM: Male, 32 years old. Trauma, pain TECHNIQUE: 2 view(s) of the thoracic spine were obtained. COMPARISON: None. FINDINGS: Normal kyphosis of the thoracic spine. There is no substantial scoliosis. Normal thoracic vertebrae and endplates. Normal disc space heights. The soft tissue structures are unremarkable. RAD/Thoracic Spine 3 Views IMPRESSION: Normal x-ray examination of the thoracic spine. Electronically Signed: Blayne Barclay MD at 12:01 EST ,
--- NOTE | 2023-10-17 13:25 | ED.RN ---
Pt ambulated out to triage, yelling at this RN about it taking an hour and 45 minutes for an xray . This RN attempted to explain that the ED had gotten busy with some critical pts and the doctors were tied up with them. Pt continues to be belligerent and rude, ambulated out of dept without difficulty.
--- NOTE | 2023-10-17 13:28 | ED.RN ---
UPDATED PT TWICE OF WAIT, THAT HIS RESULTS WERE BACK AND THAT THE DR WOULD BE IN SOON HE COULD. EXPLAINED OF CRITICAL PTS AND A FULL ER AND APOLOGIZED FOR THE WAIT. PT WAS VARY IMPATIENT AND STATED HE WAS TOLD THE XRAY WOULD BE BACK IN 45 MIN AND IT WAS PASSED THAT. AGAIN EXPLAINED THE RESULT WAS IN BUT DR WAS TIED UP AND WOULD BE IN SOON HE COULD. P T STATES THIS WAS BULLSHIT. PT WAS THEN STANDING IN HIS DOORWAY AND ASKED FOR HIS DISCHARGE PAPERS. THIS NURSE EXPLAINED THAT HIS PAPERS WERE NOT BACK HERE YET AND I WOULD BRING THEM IN SOON THEY WERE. PT STATES HE HADN'T SEEN THE DR AND IT HAD BEEN OVER THE 45 MIN. AGAIN EXPLAINED THE ER IS BUSY AND THERE WERE MULTIPLE PTS THAT WERE VERY SICK AND NEEDED IMMEDIATE ATTENTION AND HE WOULD BE SEEN AGAIN SOON THE DR COULD. PT STATED HE NEEDED TO LEAVE BEFORE HIS RIDE LEFT HIM. TOLD PT IT WAS UP TO HIM IF THAT IS WHAT HE NEEDED TO DO. PT CONTINUED TO VOICE HIS DISGRUNTLED THOUGHT ALL THE WAY OUT OF THE ER TO INCLUDE COMPLAINING TO THE TRIAGE NURSE. PT DID AMBULATE WITHOUT AND DISTRESS OR IMPAIRMENT NOTED.
--- OUTSIDE RECORDS SUMMARY | 2023-10-17 16:34 | XMS RPT_ITS | CCD ---
Author Name Unknown Address [address] [place] [address] Organization [facility] Care Team Providers Care Educational Audiologist Name Role Phone DI TMI Unavailable Unavailable ESTERDI ECHOLS Unavailable Unavailable ESTERDI ECHOLS Unavailable Unavailable MENCL, RAUL R Unavailable Unavailable MENCL RAUL R Unavailable Unavailable ESTERDI ECHOLS Unavailable Unavailable DI TIM Unavailable Unavailable DI TIM Attending Unavailable IMCA Referring Unavailable IMCA Primary Care Unavailable DI TIM Attending Unavailable DI TIM Referring Unavailable DI TIM Attending Unavailable IMCA Referring Unavailable DI TIM Attending Unavailable DI TIM Referring Unavailable IMCA Primary Care Unavailable DI TIM Attending Unavailable IMCA Referring Unavailable IMCA Primary Care Unavailable GONSALO CHOUDHURY (OT) Attending Unav ailable DI TIM Referring Unavailable IMCA Primary Care Unavailable DI TIM Attending Unavailable IMCA Referring Unavailable IMCA Primary Care Unavailable IMCA Primary Care Unavailable DI TIM Admitting Unavailable DI TIM Attending Unavailable Unavailable Primary Care Provider Unavailabl e Unavailable Primary Care Provider Unavailabl e Unavailable Primary Care Provider Unavailabl e PROVIDER, UNKNOWN Referring Unavailable Seng Glover Attending Unavailable Dacia Camejo Primary Care Unavailable DONAVAN IVEY Attending Unavailable DR DACIA CAMEJO MD Primary Care Physician JORDYN COFFMAN MD Attending Unavailable DR DACIA CAMEJO MD Primary Care Unavailable Unavailable Primary Care Provider Unavailabl e Allergies Allergy Classification Reported Allergen(s) Allergy Type Date of Onset Reaction(s) Facility (6 sources) ibuprofen; Translations: [IBUPROFEN] Drug Allergy 5 GI Upset [facility] Repository (6 sources) naproxen; Translations: [NAPROXEN] Drug Allergy 5 GI Upset [facility] Repository (12 sources) Penicillins; Translations: [PENICILLINS] Propensity to adverse reactions to drug (disorder) 3 Anaphylaxis, Other: See Comments [facility] Other [place] Repository (2 sources) Penicillin; Translations: [penicillins] Drug Allergy [facility] Medications Current Medications Medication Drug Class(es) Dates Sig (Normalized) Sig (Original) acetaminophen 325 mg / HYDROcodone bitartrate 5 mg oral tablet (1 source) Opioid Agonist Start: 12-20-2019 End: 12-27-2019 take 1 tablet by mouth every six hours as needed for pain HYDROcodone-acet aminophen (NORCO) 5-325 MG per tablet Indications: Pain, dental , Dental abscess Take 1 tablet by mouth every 6 hours as needed for Pain for up to 7 days. 6 tablet 0 12/20/2019 12/27/2019 Active Albuterol (6 sources) beta2-Adrenergic Agonist ALBUTEROL IN Inhale into the lungs 0 Active albuterol MDI (90 mcg/inh) CFC free inhalation aerosol (2 sources) Start: 01-07-2015 take 1 puff(s) by inhalation four times daily as needed for wheezing albuterol MDI (90 mcg/inh) CFC free inhalation aerosol 1 puff(s), Inhalation, QID, PRN as needed for wheezing, 0 Refill(s) Start Date: 01/07/15 Status: Ordered cephalexin 500 mg oral capsule (3 sources) Cephalosporin Antibacterial Start: 10-09-2023 End: 10-16-2023 cephalexin 500 mg oral capsule Dose : 500 mg = 1 cap(s), Oral, q6hr, X 7 day(s), # 28 cap(s), 0 Refill(s), 10/16/23 11:42:00 AM EST, 86.4 Start Date: 10/09/23 Stop Date: 10/16/23 Status: Ordered Completed/Discontinued Medications Medication Drug Class(es) Dates Sig (Normalized) Sig (Original) acetaminophen 325 mg oral tablet (2 sources) Start: 08-02-2020 End: 08-02-2020 acetaminophen (TYLENOL) tablet 650 mg Problems Active Problems Problem Classification Problem Date Documented Date Episodic/Chronic Allergic reactions (2 sources) Allergy status to penicillin; Translations: [Allergy status to penicillin] Onset: 06-24-2022 Episodic Asthma (2 sources) Asthma 01-07-2015 Chronic Attention-deficit, conduct, and disruptive behavior disorders (3 sources) Attention deficit hyperactivity disorder; Translations: [Attention-deficit hyperactivity disorder, unspecified type] 06-20-2013 Chronic Influenza (1 source) Influenza-like illness; Translations: [Influenza due to unidentified influenza virus with other respiratory manifestations] 06-09-2023 Episodic Mood disorders (8 sources) Depressive disorder; Translations: [Depression] 01-07-2015 Chronic Nonspecific chest pain (2 sources) Other chest pain; Translations: [Other chest pain] Onset: 07-12-2022 Episodic Open wounds of extremities (12 sources) Laceration without foreign body of left hand, subsequent encounter; Translations: [Laceration of unspecified muscle, fascia and tendon at wrist and hand level, left hand, subsequent encounter] Onset: 02-18-2018 02-18-2018 Episodic Other lower respiratory disease (2 sources) Shortness of breath; Translations: [Shortness of breath] Onset: 06-24-2022 Episodic Other upper respiratory disease (2 sources) Nasal congestion; Translations: [Nasal congestion] Onset: 06-24-2022 Episodic Other upper respiratory infections (1 source) Acute sinusitis; Translations: [Acute sinusitis, unspecified] 06-09-2023 Episodic Pleurisy; pneumothorax; pulmonary collapse (3 sources) Pleurisy; Translations: [Pleurisy] Onset: 06-24-2022 Episodic Skin and subcutaneous tissue infections (1 source) Cellulitis of right upper limb; Translations: [Cellulitis of right upper extremity] Sprains and strains (2 sources) Forearm sprain; Translations: [Sprain of ligament of elbow] Episodic Substance-related disorders (5 sources) Nicotine dependence, cigarettes, uncomplicated; Translations: [Tobacco user] Onset: 06-24-2022 Chronic Superficial injury; contusion (5 sources) Contusion of hand; Translations: [Superficial injury of hand with infection] Onset: 07-12-2022 Episodic Unclassified (2 sources) Laceration without foreign body of unspecified hand, initial encounter Onset: 02-18-2018 Unclassified (1 source) Contact with and (suspected) exposure to COVID-19; Translations: [Contact with and (suspected) exposure to COVID-19] Onset: 06-24-2022 Viral infection (3 sources) Genital herpes simplex; Translations: [Herpesviral infection of urogenital system, unspecified] Onset: 04-10-2013 06-20-2013 Chronic Past or Other Problems Problem Classification Problem Date Documented Da te Episodic/Chronic Disorders of teeth and jaw (20 sources) Toothache; Translations: [Dental abscess] Onset: 12-20-2019 12-20-2019 Episodic Unclassified (1 source) Contact with and (suspected) exposure to COVID-19; Translations: [Contact with and (suspected) exposure to COVID-19] Onset: 06-24-2022 Results Test Name Value Interpretation Reference Range Facil ity Vital Signs Date Time Vital Sign Value Performing Clinician Facility 10-09-2023 10:28-0500 Body height 182.9 cm RUBEN JOVEL MD [facility] 10-09-2023 10:28-0500 Body temperature 96.98 [degF] RUBEN JOVEL MD [facility] 10-09-2023 10:28-0500 Body weight 86.4 kg RUBEN JOVEL MD [facility] 10-09-2023 10:28-0500 Diastolic Blood Pressure Non-Invasive 82 mm[Hg] RUBEN JOVEL MD [facility] 10-09-2023 10:28-0500 Heart rate 101 /min RUBEN JOVEL MD [facility] 10-09-2023 10:28-0500 Respiratory rate 18 /min RUBEN JOVEL MD [facility] 10-09-2023 10:28-0500 Systolic Blood Pressure Non-Invasive 138 mm[Hg] RUBEN JOVEL MD [facility] 06-09-2023 14:20-0400 Body temperature 97.59 [degF] Adolfo Zepeda MD Work Phone: [facility] 06-09-2023 14:20-0400 Body weight 77.93 kg Adolfo Zepeda MD Work Phone: [facility] 06-09-2023 14:20-0400 Diastolic blood pressure 82 mm[Hg] Adolfo Zepeda MD Work Phone: [facility] 06-09-2023 14:20-0400 Heart rate 86 /min Adolfo Zepeda MD Work Phone: [facility] 06-09-2023 14:20-0400 Respiratory rate 16 /min Adolfo Zepeda MD Work Phone: [facility] 06-09-2023 14:20-0400 SaO2% (BldA) [Mass fraction] 96 % Adolfo Zepeda MD Work Phone: [facility] 06-09-2023 14:20-0400 Systolic blood pressure 128 mm[Hg] Adolfo Zepeda MD Work Phone: [facility] 03-18-2023 21:47-0400 Blood Pressure Cuff Size JORDYN COFFMAN MD [facility] 03-18-2023 21:47-0400 Blood Pressure Location JORDYN COFFMAN MD [facility] 03-18-2023 21:47-0400 Blood Pressure Method JORDYN COFFMAN MD [facility] 03-18-2023 21:47-0400 Body temperature 98.06 [degF] JORDYN COFFMAN MD [facility] 03-18-2023 21:47-0400 Diastolic Blood Pressure Non-Invasive 79 1 JORDYN COFFMAN MD [facility] 03-18-2023 21:47-0400 Heart rate 83 /min JORDYN COFFMAN MD [facility] 03-18-2023 21:47-0400 Respiratory rate 18 /min JORDYN COFFMAN MD [facility] 03-18-2023 21:47-0400 Systolic Blood Pressure Non-Invasive 132 1 JORDYN COFFMAN MD [facility] 06-24-2022 14:18-0400 Diastolic blood pressure 86 mm[Hg] Seng Glover MD Work Phone: [facility] 06-24-2022 14:18-0400 Heart rate 71 /min Seng Glover MD Work Phone: [facility] 06-24-2022 14:18-0400 Respiratory rate 16 /min Seng Glover MD Work Phone: [facility] 06-24-2022 14:18-0400 Systolic blood pressure 122 mm[Hg] Seng Glover MD Work Phone: [facility] 06-24-2022 13:11-0400 SaO2% (BldA) [Mass fraction] 99 % Seng Glover MD Work Phone: [facility] 06-24-2022 09:03-0400 Body height 180.3 cm Seng Glover MD Work Phone: [facility] 06-24-2022 09:03-0400 Body mass index (BMI) [Ratio] 25.8 kg/m2 Seng Glover MD Work Phone: [facility] 06-24-2022 09:03-0400 Body temperature 97.9 [degF] Seng Glover MD Work Phone: [facility] 06-24-2022 09:03-0400 Body weight 83.92 kg Seng Glover MD Work Phone: [facility] 09-25-2020 10:11-0500 Body Temperature 97.59 [degF] [facility]rol [facility]ad [facility] [place] 09-25-2020 10:11-0500 BP Diastolic 101 mm[Hg] [facility] [place] 09-25-2020 10:11-0500 BP Systolic 146 mm[Hg] [place] [facility] [place] 09-25-2020 10:11-0500 Pulse (Heart Rate) 103 /min Errol Merida [facility] [place], [place] 09-25-2020 10:11-0500 Pulse Oximetry 100 % Errol Black[facility] [place] , [place] 09-25-2020 10:11-0500 Respiratory Rate 18 /min Errol [facility] [place] 08-02-2020 07:26-0500 Body Temperature 98.01 [degF] [facility] [place] [place] 08-02-2020 07:26-0500 BP Diastolic 97 mm[Hg] [facility] [place] 08-02-2020 07:26-0500 BP Systolic 137 mm[Hg] Damion [facility] [place] 08-02-2020 07:26-0500 Pulse (Heart Rate) 97 /min [facility] [place] 08-02-2020 07:26-0500 Pulse Oximetry 100 % [facility] [place] 08-02-2020 07:26-0500 Respiratory Rate 18 /min [facility] [place] 06-10-2020 14:27-0400 BP Diastolic 100 mm[Hg] [facility] [place] 06-10-2020 14:27-0400 BP Systolic 138 mm[Hg] [facility] , [place] 06-10-2020 14:27-0400 Pulse (Heart Rate) 85 /min [facility] [place] 06-10-2020 14:27-0400 Pulse Oximetry 99 % [facility] [place] 06-10-2020 14:27-0400 Respiratory Rate 14 /min [facility] [place] 06-10-2020 13:40-0400 BMI (Body Mass Index) 25.09 kg/m2 [facility]ema [facility], [place] 06-10-2020 13:40-0400 Body Temperature 98.01 [degF] [facility] [place] 06-10-2020 13:40-0400 Body weight 83.92 kg [facility] [place] [place] 06-10-2020 13:40-0400 Height 182.9 cm Hema Andrew [facility] , [place] 06-08-2020 19:10-0400 Body Temperature 98.4 [degF] [place] [facility], [place] 06-08-2020 19:10-0400 BP Diastolic 97 mm[Hg] [facility] [place] 06-08-2020 19:10-0400 BP Systolic 131 mm[Hg] [facility] [place] 06-08-2020 19:10-0400 Pulse (Heart Rate) 93 /min [facility] [place] 06-08-2020 19:10-0400 Pulse Oximetry 99 % [facility] [place] 06-08-2020 19:10-0400 Respiratory Rate 16 /min [facility] [place] 12-20-2019 13:18-0400 BP Diastolic 84 mm[Hg] [facility] [place] 12-20-2019 13:18-0400 BP Systolic 136 mm[Hg] [facility] [place] 12-20-2019 13:01-0400 BMI (Body Mass Index) 25.8 kg/m2 Seng Glover [facility] 12-20-2019 13:01-0400 Body Temperature 97.81 [degF] [facility] [place] 12-20-2019 13:01-0400 Body weight 83.92 kg [facility] [place] 12-20-2019 13:01-0400 Height 180.3 cm [facility] [place] 12-20-2019 13:01-0400 Pulse (Heart Rate) 100 /min [facility] [place] 12-20-2019 13:01-0400 Pulse Oximetry 100 % [facility] [place] 12-20-2019 13:01-0400 Respiratory Rate 17 /min [facility] [place] Encounters Encounter Date Encounter Type Care Provider Facility Start: 10-09-2023 End: 10-09-2023 Emergency department patient visit RUBEN JOVEL MD [facility] Start: 09-20-2023 End: 09-20-2023 ambulatory Facility:[facility] Start: 06-10-2023 ambulatory Felicitas Patel RN NU [employer]SE [employer] Procedures Date Procedure Procedure Detail Performing Clinician Start: 06-24-2022 Radiologic exam ches t 2 views Swapna Mercedes MD Work Phone: Start: 06-24-2022 Assay of troponin quantitative Swapna Mercedes MD Work Phone: Start: 06-24-2022 COVID-19, FLU A/B, A ND RSV COMBO Swapna Mercedes MD Work Phone: Start: 06-24-2022 Ecg routine ecg w/le ast 12 lds w/i&r Swapna Mercedes MD Work Phone: Start: 08-02-2020 Radex elbow complete minimum 3 views Damion Adusumilli Work Phone: Start: 08-02-2020 Radex forearm 2 views V ijay Adusumilli Work Phone: Start: 06-10-2020 Basic metabolic pane l calcium total Hema Romero Andrew Work Phone: Start: 06-10-2020 Blood count complete auto&auto difrntl wbc Hema Jasso Kamran Work Phone: Start: 06-10-2020 C-reactive protein Aust in R Kamran Work Phone: Start: 06-10-2020 Sedimentation rate r bc automated Hema Romero Kamran Work Phone: Start: 06-08-2020 Radex hand minimum 3 views [place] Work Phone: Start: 02-18-2018 Antibody screen DI GLENROY Plan of Treatment Date Care Activity Detail Author Start: 05-11-2023 Influenza vaccination Influenza Vaccine (#1) [facility] Start: 04-10-2022 Influenza vaccination Flu vaccine (#1) [facility] Start: 06-14-2020 End: 06-14-2020 Office Visit 06/14/2020 Office Visit Family Medicine Bess Muniz, AUTOMATIC MACHINES SUPERVISOR - SHOTGUN SHELL LOADING MACHINE OPERATOR [address] [place] [address] [phone] [facility] Start: 05-11-2020 Influenza vaccination [place] Start: 2009 DTaP/Tdap/Td vaccine (1 - Tdap) DTaP/Tdap/Td vaccine (1 - Tdap) [facility] Start: 2009 Urine microalbumin profile DTaP,Tdap,Td Vaccine (1 - Tdap) [facility] Start: 2008 Hepatitis C screening Hepatitis C screen [facility] Start: 2008 Hepatitis C Screening Hepatitis C Screening [facility] Start: 2008 HIV Screening HIV Screening [facility] Start: 2005 HIV screen HIV screen [place] Start: 2005 HIV screening [facility] Start: 2002 Depression Screen Depression Screen [facility] Start: 1996 Pneumococcal 0-64 years Vaccine (1 - PCV) Pneumococcal 0-64 years Vaccine (1 - PCV) [facility] Start: 1996 Pneumococcal 0-64 years Vaccine (1 of 1 - PPSV23) Pneumococcal 0-64 years Vaccine (1 of 1 - PPSV23) [place] Start: 1996 Pneumococcal vaccination Pneumococcal Vaccine (1 - PCV) [facility] Start: 11-19-1991 Varicella vaccine (1 of 2 - 2-dose childhood series) Varicella vaccine (1 of 2 - 2-dose childhood series) [facility] Start: 05-21-1991 COVID-19 Vaccine (#1) COVID-19 Vaccine (#1) [facility] Start: 1990 Hepatitis B Vaccine (1 of 3 - 3-dose series) Hepatitis B Vaccine (1 of 3 - 3-dose series) [facility] Start: 1990 Hepatitis C screening Hepatitis C screen [place] EKG 12 Lead EKG 12 Lead ECG STAT 06/24/2022 9:14 AM EDT [facility] Work Phone: Influenza virus A an d B RNA and SARS-CoV-2 (COVID-19) N gene panel - Respiratory specimen by TRINIDAD with probe detection COVID & INFLUENZA A/B NAAT, ROUTINE Microbiology Routine Influenza-like illness Acute non-recurrent sinusitis, unspecified location 06/09/2023 2:41 PM EDT [facility] Work Phone: End: 06-10-2020 XR HAND RIGHT (MIN 3 VIEWS) XR HAND RIGHT (MIN 3 VIEWS) Imaging STAT Once for 1 Occurrences starting 06/10/2020 until 06/10/2020 [place] Payers Date Payer Category Payer Medicaid [id number] 2022 Medicaid [place] [employer] [id number] 2022-[facility] [phone] [address] [place] [address] Medicaid [id number] 2018 Medicaid [id number] 1990 Unknown [id number] 1990 Unknown [id number] 1990 Unknown [id number] 1990 Unknown [id number] 1990 Unknown [id number] 1990 Unknown [id number] 1990 Unknown [id number] 1990 Unknown [id number] 1990 Unknown [id number] 1990 Unknown [id number] Unknown Social History Date Type Detail Facility Start: 12-20-2019 End: 06-09-2023 Tobacco smoking status NHIS Current every day smoker [place] History of tobacco use Cigarette Smoker [place] Start: 12-20-2019 End: 08-18-2020 Cigarettes smoked current (pack per day) - Reported [facility] Start: 12-20-2019 End: 06-10-2020 Alcohol intake Current drinker of alcohol (finding) [place] Start: 06-21-2016 Alcohol Comment occ [facility] [place] Start: 1990 Sex Assigned At Not on file [place] Exposure to SARS-CoV -2 (event) Unable to assess [place] Start: 03-04-2019 End: 06-08-2020 Tobacco use and exposure Never used [place] Start: 06-14-2022 End: 06-24-2022 Exposure to SARS-CoV-2 (event) Not sure [place] Sex Assigned At Sex [facility] Start: 06-09-2023 Tobacco use and exposure User of smokeless tobacco [facility] History of tobacco use Chews Tobacco [facility] Start: 06-09-2023 Alcohol intake 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 non-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 operator of alcohol (finding) [facility] Start: 08-18-2020 End: 06-09-2023 Tobacco use panel [facility] Adult Depression Screening Assessment 6 [facility] Start: 06-09-2023 Tobacco Comment started smoking 17yo [facility] Start: 1990 Sex Assigned At Male C [facility] Start: 02-19-2018 Gender identity Identifies as male gender (finding) [facility] Start: 10-09-2023 Tobacco smoking status Heavy t obacco smoker (finding) [facility] Medical Equipment Procedure Code Equipment Code Equipment Origin al Text Equipment Identifier Dates Connector Axogua rd 3mm Porcine Extracellular Matrix 15mm Nerve Coaptation - [id number] Start: 02-19-2018 Functional Status Date Assessment Result Facility 10-09-2023 Functional Status Standard Safet y ID band on, Call device within reach, Bed in low position, Wheels locked, Upper/Half-Length side-rails up [facility] Mental Status Date Assessment Result Facility 10-09-2023 Mental Status Orientation Oriented x 4 [facility] Clinical Notes 06-24-2022 to 10-09-2023 Telephone Encounter - Priscilla Whitehead LPN - 06/12/2023 9:42 AM EDTTelephone Encounter - Kenna Morrell MA - 06/10/2023 9:12 AM EDTTelephone Encounter - Kenna Morrell MA - 06/10/2023 8:34 AM EDT Note Date & Type Note Facility 10-09-2023 Hospital Discharg e instructions Patient Education 10/09/2023 11:42:21 Foreign Body, Soft Tissue (Not Removed) Foreign Object Under the Skin, Not Removed Very small particles that remain under the skin usually don t cause problems or need further treatment. But occasionally they can cause an infection. Sometimes they work their way to the surface on their own without any problems. If you see this happening, you can remove any particles with tweezers, but be careful not to dig up the skin and make things worse. Home care Wound care Keep the wound clean and dry. If there is a dressing or bandage, change it when it gets wet or dirty. Otherwise, leave it on for the first 24 hours, then change it once a day or as often as you were instructed. If stitches or edmar were used, clean the wound every day: oAfter taking off the dressing, wash the area gently with soap and water. oApply a thin layer of antibiotic ointment to the cut. This will keep the wound clean and make it easier to remove the stitches. If it is oozing a lot, you can put a nonstick dressing over it. Then reapply the bandage or dressing as you were instructed. oYou can get it wet, just like when you clean it. This means you can shower as usual for the first 24 hours, but do not soak the area in water (no baths or swimming) until the stitches or edmar are taken out. If surgical tape or strips were used, keep the area clean and dry. If it becomes wet, blot it dry with a towel. Medicine You can take [id number] medicine for pain, unless you were given a different pain medicine to use. If you have chronic liver or kidney disease or ever had a stomach ulcer, or gastrointestinal bleeding or are taking blood thinner medicines, talk with your healthcare provider before using these medicines. If you were given antibiotics, take them until they are used up. It is important to finish the antibiotics even if the wound looks better to make sure the infection clears. Follow-up care Follow up your healthcare provider, or as advised. Keep in mind the following: Watch for any signs of infection, such as increasing pain, redness, swelling, or pus drainage. If this happens, don t wait for your scheduled visit, rather see your healthcare provider sooner. Stitches or edmar are usually taken out within 5 to 14 days. This varies depending on what part of your body they are on, and the type of wound. The healthcare provider will tell you how long they should be left in. If surgical tape or strips were used, they are usually left on for 7 to 10 days. You can remove them after that unless you were told otherwise. If you try to remove them, and it is too difficult, soaking can help. If the edges of the cut pull apart, then stop removing the tape, and follow up with your healthcare provider. If X-rays were taken, you will be told if there are new findings that may affect your care. When to seek medical advice Call your healthcare provider right away if any of these occur: Fever of 100.4 F (38 C) or higher, or as directed by your healthcare provider Increasing pain in the wound Redness, swelling or pus coming from the wound [id number] [employer]. [address] [place] [address], [place] [address]. All rights reserved. This information is not intended as a substitute for professional medical care. Always follow your healthcare professional's instructions. 10/09/2023 11:42:05 Laceration, Hand: All Closures Hand Laceration: All Closures A laceration is a cut through the skin. Deep cuts usually require stitches. Minor cuts may be closed with surgical tape or skin adhesive. X-rays may be done if something may have entered the skin through the cut, such as broken glass. You may also be given a tetanus shot if you are not up to date on this vaccination and the object that cut you may carry tetanus. Home care Your healthcare provider may prescribe an antibiotic. This is to help prevent infection. Follow all instructions for taking this medicine. Take the medicine every day until it is gone or you are told to stop. You should not have any left over. The healthcare provider may prescribe medicines for pain. Follow instructions for taking them. Follow the healthcare provider s instructions on how to care for the cut. Keep the wound clean and dry. Don't get the wound wet until you are told it is OK to do so. If the bandage gets wet, remove it. Gently pat the wound dry with a clean cloth. Then put on a clean, dry bandage. To help prevent infection, wash your hands with soap and water before and after caring for the wound. Caring for stiches: Once you no longer need to keep the stitches dry, clean the wound daily. First, remove the bandage. Then wash the area gently with soap and warm water, or as directed by the healthcare provider. Use a wet cotton swab to loosen and remove any blood or crust that forms. After cleaning, apply a thin layer of antibiotic ointment if advised. Then put on a new bandage unless you are told not to. Caring for skin glue: Don t put apply liquid, ointment, or cream on the wound while the glue is in place. Avoid activities that cause heavy sweating. Protect the wound from sunlight. Don't scratch, rub, or pick at the adhesive film. Don't place tape directly over the film. The glue should peel off within 5 to 10 days. Caring for surgical tape: Keep the area dry. If it gets wet, blot it dry with a clean towel. Surgical tape usually falls off within 7 to 10 days. If it has not fallen off after 10 days, you can take it off yourself. Put mineral oil or petroleum jelly on a cotton ball and gently rub the tape until it is removed. Once you can get the wound wet, you may shower as usual, but don't soak the wound in water. This means no tub baths or swimming. Even with proper treatment, a wound infection may sometimes occur. Check the wound daily for signs of infection listed below. Follow-up care Follow up with your healthcare provider, or as advised. If you have stitches, be sure to return as directed to have them removed. When to seek medical advice Call your healthcare provider right away if any of these occur: Wound bleeding not controlled by direct pressure Signs of infection, including increasing pain in the wound, increasing wound redness or swelling, or pus or bad odor coming from the wound Fever of 100.4 F (38. C) o higher, or as directed by your healthcare provider Stitches come apart or fall out or surgical tape falls off before 7 days Wound edges reopen Wound changes colors Numbness or weakness in the affected hand Decreased movement of the hand 7299-10[address] [employer]. [address] [place] [address]. All rights reserved. This information is not intended as a substitute for professional medical care. Always follow your healthcare professional's instructions. Follow Up Care 10/09/2023 10:19:48 With:Your hand surgeon Address:Unknown When:2-4 days Comments:Follow-up as neededWash daily and apply antibiotic ointmentHave sutures removed in 12 to 14 daysFollow-up for reevaluation for foreign body if you continue to have any discomfort or any signs of infection With:DACIA CAMEJO Address: [address] [place], [place] [id number]- [facility] (1) When:2-4 days [facility] 10-09-2023 Note Discharge Instructions Thank you for allowing [facility] to assist you with your healthcare needs. The following is important discharge information regarding your hospital visit. Diagnosis from Today's Visit Hand laceration Laceration of hand with foreign body What to Do Next Instructions from Your Care Team Discharge Return to Work, School, or Sports (Return to Work, School, or Sports) - Ordered -- 10/09/23, May return to: work, 10/09/23 11:42:00 EST Post Acute Orders No qualifying data available. You Need to Schedule the Following Appointments Follow Up with Your hand surgeon When Within 2-4 days Why: Follow-up as needed Wash daily and apply antibiotic ointment Have sutures removed in 12 to 14 days Follow-up for reevaluation for foreign body if you continue to have any discomfort or any signs of infection Follow Up with DACIA CAMEJO When Within 2-4 days Where: [address] [place], [place] [id number] [facility] (1) Allergies penicillin Medications Please ask your primary doctor or pharmacist before taking any other medication not listed, including over the counter drugs, herbal medications, vitamins and or supplements as they may interact with your home medications. What How Much When Why Instructions Last Dose Changed cephalexin (cephalexin 500 mg oral capsule) 1 cap by mouth Four (4) times a day Infected hand Duration: 10 Days Changed cephalexin (cephalexin 500 mg oral capsule) 1 cap by mouth Every 6 hours Duration: 7 Days Printed Prescription Unchanged acetaminophen-oxyCODONE (Percocet 5 mg-325 mg oral tablet) 1 tab(s) by mouth Every 6 hours as needed for for pain Infected hand Duration: 3 Days Unchanged albuterol (albuterol MDI (90 mcg/ inh) CFC free inhalation aerosol) 1 puff(s) by inhalation Four (4) times a day as needed for as needed for wheezing Unchanged doxycycline (doxycycline hyclate 100 mg oral capsule) 1 cap by mouth Every 12 hours Infected hand Duration: 10 Days Unchanged escitalopram (Lexapro 20 mg oral tablet) 1 tab(s) by mouth Every day Please take this list to your next doctor s visit. Bring all medications you take, including over the counter medications, herbals and other supplements with you to your doctor s visit. Patients and families are reminded to discard old lists and to update any records with all medication providers or retail pharmacies. Medication Leaflets cephalexin (sef a LILIA in) What is the most important information I should know about cephalexin? You should not use this medicine if you are allergic to cephalexin or to similar antibiotics, such as Ceftin, Cefzil, Omnicef, and others. Tell your doctor if you are allergic to any drugs, especially penicillins or other antibiotics. What is cephalexin? Cephalexin is a cephalosporin (SEF a low spor in) antibiotic that is used to treat bacterial infections of the lungs, ear, skin, bones, bladder, and kidneys. Cephalexin is used to treat infections in adults and children who are at least 1 year old. Cephalexin may also be used for purposes not listed in this medication guide. What should I discuss with my healthcare provider before taking cephalexin? You should not use this medicine if you are allergic to cephalexin or any other cephalosporin antibiotic (cefdinir, cefadroxil, cefoxitin, cefprozil, ceftriaxone, cefuroxime, Omnicef, and others). Tell your doctor if you have ever had: an allergy to any drug (especially penicillin); liver or kidney disease; or intestinal problems, such as colitis. The liquid form of cephalexin may contain sugar. This may affect you if you have diabetes. Tell your doctor if you are or breast-feeding. How should I take cephalexin? Follow all directions on your prescription label and read all medication guides or instruction sheets. Use the medicine exactly as directed. Do not use cephalexin to treat any condition that has not been checked by your doctor. Measure liquid medicine carefully. Use the dosing syringe provided, or use a medicine dose-measuring device (not a kitchen spoon). Use this medicine for the full prescribed length of time, even if your symptoms quickly improve. Skipping doses can increase your risk of infection that is resistant to medication. Cephalexin will not treat a viral infection such as the flu or a common cold. Do not share cephalexin with another person, even if they have the same symptoms you have. This medicine can affect the results of certain medical tests. Tell any doctor who treats you that you are using cephalexin. Store the tablets and capsules at room temperature away from moisture, heat, and light. Store the liquid medicine in the refrigerator. Throw away any unused liquid after 14 days. What happens if I miss a dose? Take the medicine as soon as you can, but skip the missed dose if it is almost time for your next dose. Do not take two doses at one time. What happens if I overdose? Seek emergency medical attention or call the Poison Help line at . Overdose symptoms may include nausea, vomiting, stomach pain, diarrhea, and blood in your urine. What should I avoid while taking cephalexin? Antibiotic medicines can cause diarrhea, which may be a sign of a new infection. If you have diarrhea that is watery or bloody, call your doctor before using anti-diarrhea medicine. What are the possible side effects of cephalexin? Get emergency medical help if you have signs of an allergic reaction (hives, difficult breathing, swelling in your face or throat) or a severe skin reaction (fever, sore throat, burning eyes, skin pain, red or purple skin rash with blistering and peeling). Call your doctor at once if you have: severe stomach pain, diarrhea that is watery or bloody (even if it occurs months after your last dose); unusual tiredness, feeling light-headed or short of breath; easy bruising, unusual bleeding, purple or red spots under your skin; a seizure; pale skin, cold hands and feet; yellowed skin, dark colored urine; fever, weakness; or pain in your side or lower back, painful urination. Common side effects may include: diarrhea; nausea, vomiting; indigestion, stomach pain; or vaginal itching or discharge. This is not a complete list of side effects and others may occur. Call your doctor for medical advice about side effects. You may report side effects to FDA at 3-248-LII-2058. What other drugs will affect cephalexin? Tell your doctor about all your other medicines, especially: metformin; or probenecid. This list is not complete. Other drugs may affect cephalexin, including prescription and ktvi-lld-sytwbin medicines, vitamins, and herbal products. Not all possible drug interactions are listed here. Where can I get more information? Your pharmacist can provide more information about cephalexin. Remember, keep this and all other medicines out of the reach of children, never share your medicines with others, and use this medication only for the indication prescribed. Every effort has been made to ensure that the information provided by [employer]. ('[employer]') is accurate, up-to-date, and complete, but no guarantee is made to that effect. Drug information contained herein may be time sensitive. [facility] information has been compiled for use by healthcare practitioners and consumers in the [place] and therefore [facility] does not warrant that uses outside of the [place] are appropriate, unless specifically indicated otherwise. [employer] drug information does not endorse drugs, diagnose patients or recommend therapy. [employer] drug information is an informational resource designed to assist licensed healthcare practitioners in caring for their patients and/or to serve consumers viewing this service as a supplement to, and not a substitute for, the expertise, skill, knowledge and judgment of healthcare practitioners. The absence of a warning for a given drug or drug combination in no way should be construed to indicate that the drug or drug combination is safe, effective or appropriate for any given patient. [facility] does not assume any responsibility for any aspect of healthcare administered with the aid of information [facility] provides. The information contained herein is not intended to cover all possible uses, directions, precautions, warnings, drug interactions, allergic reactions, or adverse effects. If you have questions about the drugs you are taking, check with your doctor, nurse or pharmacist. Copyright 0208-5423 [facility] .[employer]. Version: 08.10. Revision Date: 04/11/2023. Education Materials Foreign Object Under the Skin, Not Removed Very small particles that remain under the skin usually don t cause problems or need further treatment. But occasionally they can cause an infection. Sometimes they work their way to the surface on their own without any problems. If you see this happening, you can remove any particles with tweezers, but be careful not to dig up the skin and make things worse. Home care Wound care Keep the wound clean and dry. If there is a dressing or bandage, change it when it gets wet or dirty. Otherwise, leave it on for the first 24 hours, then change it once a day or as often as you were instructed. If stitches or edmar were used, clean the wound every day: oAfter taking off the dressing, wash the area gently with soap and water. oApply a thin layer of antibiotic ointment to the cut. This will keep the wound clean and make it easier to remove the stitches. If it is oozing a lot, you can put a nonstick dressing over it. Then reapply the bandage or dressing as you were instructed. oYou can get it wet, just like when you clean it. This means you can shower as usual for the first 24 hours, but do not soak the area in water (no baths or swimming) until the stitches or edmar are taken out. If surgical tape or strips were used, keep the area clean and dry. If it becomes wet, blot it dry with a towel. Medicine You can take bzja-yxp-ibwmuxw medicine for pain, unless you were given a different pain medicine to use. If you have chronic liver or kidney disease or ever had a stomach ulcer, or gastrointestinal bleeding or are taking blood thinner medicines, talk with your healthcare provider before using these medicines. If you were given antibiotics, take them until they are used up. It is important to finish the antibiotics even if the wound looks better to make sure the infection clears. Follow-up care Follow up your healthcare provider, or as advised. Keep in mind the following: Watch for any signs of infection, such as increasing pain, redness, swelling, or pus drainage. If this happens, don t wait for your scheduled visit, rather see your healthcare provider sooner. Stitches or edmar are usually taken out within 5 to 14 days. This varies depending on what part of your body they are on, and the type of wound. The healthcare provider will tell you how long they should be left in. If surgical tape or strips were used, they are usually left on for 7 to 10 days. You can remove them after that unless you were told otherwise. If you try to remove them, and it is too difficult, soaking can help. If the edges of the cut pull apart, then stop removing the tape, and follow up with your healthcare provider. If X-rays were taken, you will be told if there are new findings that may affect your care. When to seek medical advice Call your healthcare provider right away if any of these occur: Fever of 100.4 F (38 C) or higher, or as directed by your healthcare provider Increasing pain in the wound Redness, swelling or pus coming from the wound 3930-12[address] [employer]. [address] [place] [address]. All rights reserved. This information is not intended as a substitute for professional medical care. Always follow your healthcare professional's instructions. Hand Laceration: All Closures A laceration is a cut through the skin. Deep cuts usually require stitches. Minor cuts may be closed with surgical tape or skin adhesive. X-rays may be done if something may have entered the skin through the cut, such as broken glass. You may also be given a tetanus shot if you are not up to date on this vaccination and the object that cut you may carry tetanus. Home care Your healthcare provider may prescribe an antibiotic. This is to help prevent infection. Follow all instructions for taking this medicine. Take the medicine every day until it is gone or you are told to stop. You should not have any left over. The healthcare provider may prescribe medicines for pain. Follow instructions for taking them. Follow the healthcare provider s instructions on how to care for the cut. Keep the wound clean and dry. Don't get the wound wet until you are told it is OK to do so. If the bandage gets wet, remove it. Gently pat the wound dry with a clean cloth. Then put on a clean, dry bandage. To help prevent infection, wash your hands with soap and water before and after caring for the wound. Caring for stiches: Once you no longer need to keep the stitches dry, clean the wound daily. First, remove the bandage. Then wash the area gently with soap and warm water, or as directed by the healthcare provider. Use a wet cotton swab to loosen and remove any blood or crust that forms. After cleaning, apply a thin layer of antibiotic ointment if advised. Then put on a new bandage unless you are told not to. Caring for skin glue: Don t put apply liquid, ointment, or cream on the wound while the glue is in place. Avoid activities that cause heavy sweating. Protect the wound from sunlight. Don't scratch, rub, or pick at the adhesive film. Don't place tape directly over the film. The glue should peel off within 5 to 10 days. Caring for surgical tape: Keep the area dry. If it gets wet, blot it dry with a clean towel. Surgical tape usually falls off within 7 to 10 days. If it has not fallen off after 10 days, you can take it off yourself. Put mineral oil or petroleum jelly on a cotton ball and gently rub the tape until it is removed. Once you can get the wound wet, you may shower as usual, but don't soak the wound in water. This means no tub baths or swimming. Even with proper treatment, a wound infection may sometimes occur. Check the wound daily for signs of infection listed below. Follow-up care Follow up with your healthcare provider, or as advised. If you have stitches, be sure to return as directed to have them removed. When to seek medical advice Call your healthcare provider right away if any of these occur: Wound bleeding not controlled by direct pressure Signs of infection, including increasing pain in the wound, increasing wound redness or swelling, or pus or bad odor coming from the wound Fever of 100.4 F (38. C) o higher, or as directed by your healthcare provider Stitches come apart or fall out or surgical tape falls off before 7 days Wound edges reopen Wound changes colors Numbness or weakness in the affected hand Decreased movement of the hand 5170-1292 [employer]. [address] [place] [address], [place] [address]. All rights reserved. This information is not intended as a substitute for professional medical care. Always follow your healthcare professional's instructions. Additional Information VACCINATE! IT SAVES LIVES! Members of the community who have not yet received the COVID-19 vaccine and would like to receive it can visit one of [facility] vaccine clinics. There are many vaccine clinic locations within the [facility]. For locations and available times, please visit [email or web address] [email or web address] It is important to note that some COVID mobile vaccine clinics are held outdoors and may be canceled in rainy or stormy conditions. To learn more about pediatric vaccinations (ages 5-11), we invite you to visit the [facility] webpage. [email or web address] [email or web address]-Wjssiyxvqkf-Freq [email or web address].[email or web address] To learn more about the COVID-19 vaccine, we invite you to visit the CDC website for a list of frequently asked questions. https://www.cdc.gov/coronavirus/ 2019-ncov/vaccines/faq.html [facility] Patient Portal Access Instructions: Stay connected with your healthcare team and access your personal medical information anytime with the [facility] Patient Portal. If you would like a full copy of your medical records please contact the [facility] Medical Records Department Sunday through Sunday between 8a.m. and 4:30p.m. Please follow the directions below to access the portal: 1.Access the email account you provided upon registration to the hospital.2.Look for an invitation email from [facility].3.Open the email and access the invitation link: Accept Invitation to [facility]4.Fill in the required mayer to create your account. Sign into [email or web address] with your username and password that you created in the above steps to stay up to date. You can then view a summary of results, a summary of your visits, and the ability to download your summaries to your computer or send the information securely to a physician. Remember that your healthcare information is confidential, so carefully consider who you will allow to register on the [facility] Patient Portal for access to your information. You can also access the [facility] Patient Portal on the [employer] laura. Simply click on Health Records under Health Data and then click on the [employer] logo. HOW TO SAFELY DISPOSE OF PRESCRIPTION MEDICATIONS Please use one of the following methods to safely dispose of your unused medications. 1.Use a drug disposal kit: the drug disposal pouch allows you to safely discard your old and unused drugs. Ask your nurse to give you one when you are discharged.2.Visit a local take-back location: Many local pharmacies and police departments have programs that collect old and unwanted prescription drugs. Call your local pharmacy or go to http://[employer]/1R3Rv9z to find one close to you.3.Make use of household items: Use cat litter or old coffee grounds to dispose medications if other options are not available. Mix your drugs with these household products, seal them in an airtight container and throw it into the garbage. Call [facility]: [phone] to be sure your drugs can be disposed of in this way. Some medicines may require a different approach.4.Never flush your medications down the toilet. IF YOU HAVE BEEN PRESCRIBED AN OPIOIDS FOR PAIN If you have been prescribed an opioid (such as hydrocodone, oxycodone or morphine), it is critical to understand the possible side effects and risks of opioid pain medications. Even when taken as directed, opioids can have several side effects including: Tolerance, meaning you might need to take more of a medication for the same pain relief. Nausea, vomiting and/or constipation. Sleepiness, dizziness, dry mouth, confusion, depression or itching. Physical dependence, meaning you have withdrawal symptoms when a medication is stopped ? this can develop within a few days. KNOW YOUR RESPONSIBILITIES It is important to know exactly how much and how often to take the opioid pain medications you are prescribed. Never take opioids in higher amounts or more often than prescribed. Do not combine opioids with alcohol or other drugs that cause drowsiness, such as benzodiazepines, also known as benzos, including diazepam and alprazolam, muscle relaxants or sleep aids. Never sell or share prescription opioids. This is illegal. Store opioids in a secure place and out of reach of others (including children, family, friends and visitors). The last page(s) of this document has been signed and retained as a CHART COPY Signatures Patient Education Materials Foreign Body, Soft Tissue (Not Removed) Laceration, Hand: All Closures Medication Leaflets cephalexin My discharge plan and instructions have been reviewed and explained to me and I,BONILLAPAT understand my current condition and have read and understand these discharge instructions. I have received a written copy of the plan/instructions. If I have questions, I am aware that I should contact my doctor. 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 No acute fracture or dislocation. 4 mm radiopaque density projects between the distal 4th and 5th metacarpals and appears to be anterior/volar on lateral imaging. IMPRESSION: 1. No acute fracture or dislocation. 2. Potential radiopaque foreign body as noted above. Interpreted by: Seng Reynolds DO Preliminary Report By: Seng Reynolds DO Electronically signed By Seng Reynolds DO Dictated Date: 10/09/2023 11:34:18 AM Prelim Date: 10/09/2023 11:35:44 AM Sign Date: 10/09/2023 11:35:44 AM Ordering Provider: RUBEN JOVEL [facility] 10-09-2023 Note ORIGINAL EXAMINATION: THREE XRAY VIEWS OF THE LEFT HAND10/09/2023 11:10 am COMPARISON: None HISTORY: ORDERING SYSTEM PROVIDED HISTORY: Reason for Exam: pain FINDINGS: There is no acute fracture or dislocation. There is soft tissue swelling along the 5th metacarpal. There is a thin radiopaque density measuring 3 mm, best seen on the AP view between the 4th and 5th distal metacarpal. No aggressive osseous lesion. Articulations are intact. IMPRESSION: 1. No acute fracture or dislocation. 2. Soft tissue swelling along the 5th metacarpal with a thin 3 mm radiopaque density between the 4th and 5th distal metacarpal, potentially representing foreign body.. Interpreted by: Seng Reynolds DO Preliminary Report By: Seng Reynolds DO Electronically signed By Seng Reynolds DO Dictated Date: 10/09/2023 11:28:30 AM Prelim Date: 10/09/2023 11:30:43 AM Sign Date: 10/09/2023 11:30:43 AM Ordering Provider: [facility] 09-20-2023 Note HNO ID: [id number] Author: JUAN J NESBITT PA-C Service: ? Author Type: Physician Fundraising Officer Type: Progress Notes Filed: 09/20/2023 10:42 Note Text: This note was created using Travtarriter. Subjective Pat Bonilla is a 32 year old male. HPI Presents with a chief complaint of difficulty urinating and flank pain. He states this started in the sports media. He was able to urinate about 5 hours ago but states he really had to push to be able to go. He denies any dysuria or hematuria. He denies history of kidney stones. States he has had a urinary tract infection before. Denies penile discharge or drainage. No itching. Denies concern for STD. Patient is here with his partner. No fever. No vomiting. He has not had diarrhea. Review of Systems Constitutional: Negative. HENT: Negative. Eyes: Negative. Respiratory: Negative. Cardiovascular: Negative. Gastrointestinal: Negative. Genitourinary: Positive for difficulty urinating and flank pain. Negative for decreased urine volume, dysuria, frequency, genital sores, hematuria, penile discharge, penile swelling, scrotal swelling, testicular pain and urgency. All other systems reviewed and are negative. PAST MEDICAL HISTORY Diagnosis Date ADHD (attention deficit hyperactivity disorder) Bipolar disorder (HCC) Depression [facility], history of suicide attempt Genital herpes 04/2013 Polysubstance abuse (HCC) meth, heroin. Oversoe 07/2019 [facility] Tobacco use disorder No current outpatient medications on file. No current facility-administered medications for this visit. PAST SURGICAL HISTORY Procedure Laterality Date HAND SURGERY HX Left 02/18/2018 FAMILY HISTORY Problem Relation Age of Onset COPD Father Cancer Father of lung cancer Cancer Paternal Grandfather of lung cancer Cancer Paternal Uncle of lung cancer Psychiatry Mother depression Diabetes Maternal Grandmother Social History Tobacco Use Smoking status: Every Day Packs/day: 0.50 Years: 5.00 Additional pack years: 0.00 Total pack years: 2.50 Types: Cigarettes Smokeless tobacco: Current Types: Chew Tobacco comments: started smoking 17yo Substance Use Topics Alcohol use: No Drug use: No Objective BP 135/86 Pulse 71 Temp 36.5 ?C (97.7 ?F) Resp 18 SpO2 99% Physical Exam Vitals reviewed. Constitutional: Appearance: Normal appearance. HENT: Head: Normocephalic and atraumatic. Cardiovascular: Rate and Rhythm: Normal rate and regular rhythm. Heart sounds: Normal heart sounds. Pulmonary: Effort: Pulmonary effort is normal. Breath sounds: Normal breath sounds. Abdominal: General: Abdomen is flat. Palpations: Abdomen is soft. Tenderness: There is abdominal tenderness. There is left CVA tenderness. There is no right CVA tenderness. Comments: Patient has moderate left flank pain. No guarding or rebound. Musculoskeletal: Cervical back: Neck supple. Skin: General: Skin is warm and dry. Neurological: Mental Status: He is alert. Assessment and Plan ASSESSMENT/PLAN: 1. Flank pain - ICD9: 789.09, ICD10: R10.9 Dip here is negative. Patient does have moderate flank pain however. Discussed with him I would recommend further evaluation in the emergency department for this and the difficulty urinating. Patient voiced understanding. - UA DIP, URINE (POC) - URINE CULTURE Juan J Nesbitt PA-C [facility] 06-12-2023 Miscellaneous Notes Left message for patient with negative results and recommendations.Priscilla Whitehead LPN Left message for pt to call back. Kenna Morrell MA ----- Message from Araceli Sim APRN.[employer]LL LOADING MACHINE OPERATOR sent at 06/10/2023 8:11 AM EDT ----- Please advise patient: You tested negative for COVID and Influenza. If you were tested because you were having symptoms, please monitor these symptoms and for any worrisome symptoms, please call your primary care provider or schedule a visit with [facility]. Araceli Sim APRN.CNP documented in this encounter [facility] 06-10-2023 Miscellaneous Notes Reason for Call: Vomiting. Patient was just seen yesterday and given Amoxicillin for sinus infection. The vomiting started today. Outcome: Patient has no pcp. Advised to be seen within the next 24 hours. He states he will return to [facility] care. Reason for Disposition Vomiting a prescription medication Answer Assessment - Initial Assessment Questions 1. VOMITING SEVERITY: 3-4 times today. 2. ONSET: Today. 3. FLUIDS: Just drinking water but it is coming back up. Drank some tea, is not sure if he is keeping it down. 4. ABDOMINAL PAIN: No. 5. DIARRHEA: No. 6. CONTACTS: No. 7. CAUSE: Unsure. 8. HYDRATION STATUS: Last urinated just now. 9. OTHER SYMPTOMS: Headache- took ibuprofen 10 minutes ago. 6/10 pain level. Worse when standing. Protocols used: [id number] documented in this encounter [facility] 06-09-2023 Note HNO ID: [id number] Author: Adolfo Zepeda MD Service: ? Author Type: Physician Type: Progress Notes Filed: 06/09/2023 2:51 PM Note Text: Patient presents with: Cough: Cough, congestion, fever and BARRIOS x 1 week HPI: Feeling sick for 7 days. Feeling the worst today, had sweats overnight. His girlfriend has been sick also and now child is sick. His child may have been exposed to COVID by an upstairs tenant in his apartment. Positive symptoms: Cough, Headache, fever, Shortness of breath, Wheezing, Sore throat, Earache, Sinus pressure, Nasal Congestion, Rhinorrhea (colored discharge), Post nasal drainage, sweats, Nausea, fatigue Negative symptoms: Diarrhea, OTC: Ibuprofen, nyquil. Prescribed prednisone 05/27/23 for wheezing and symptoms resolved. MEDICATIONS: No current outpatient medications on file. No current facility-administered medications for this visit. ALLERGIES: ALLERGIES Allergen Reactions Ibuprofen GI Upset Naproxen GI Upset Penicillins Other: See Comments Throat started to close up. VITALS: BP 128/82 Pulse 86 Temp 36.4 ?C (97.6 ?F) (Tympanic) Resp 16 Wt 77.9 kg (171 lb 12.8 oz) SpO2 96% BMI 24.19 kg/m? PHYSICAL EXAM: GEN: mildly ill appearing HEENT: PERRL, EOMI, conjunctiva clear Ears: canals clear. TMs without erythema, bulge, or effusion Sinuses: pressure over sinuses Throat: moist mucous membranes, mild erythema, no exudate Neck: supple, no thyromegaly, no lymphadenopathy HEART: regular rate and rhythm, no murmurs LUNGS: clear to auscultation, no wheezes or crackles, no increased WOB ASSESSMENT/PLAN: 1. Influenza-like illness - ICD9: 487.1, ICD10: J11.1 (primary diagnosis) 2. Acute non-recurrent sinusitis, unspecified location - ICD9: 461.9, ICD10: J01.90 Day of of illness and worsening. - differential includes COVID-19, new viral illness yesterday, secondary bacterial sinusitis - Discussed supportive care treatment with home isolation, rest, cold medicine, and analgesia. - Red flags to seek further treatment include chest pain, shortness of breath, and lethargy; in the ER if severe. - DOXYCYCLINE MONOHYDRATE 100 MG CAPSULE, may discontinue if positive for COVID. - COVID AND INFLUENZA A/B NAAT, ROUTINE Adolfo Zepeda MD [facility] 06-09-2023 History of Presen t illness Narrative Patient presents with: Cough: Cough, congestion, fever and BARRIOS x 1 week HPI: Feeling sick for 7 days. Feeling the worst today, had sweats overnight. His girlfriend has been sick also and now child is sick. His child may have been exposed to COVID by an upstairs tenant in his apartment. Positive symptoms: Cough, Headache, fever, Shortness of breath, Wheezing, Sore throat, Earache, Sinus pressure, Nasal Congestion, Rhinorrhea (colored discharge), Post nasal drainage, sweats, Nausea, fatigue Negative symptoms: Diarrhea, OTC: Ibuprofen, nyquil. Prescribed prednisone 05/27/23 for wheezing and symptoms resolved. MEDICATIONS: No current outpatient medications on file. No current facility-administered medications for this visit. ALLERGIES: ALLERGIES Allergen Reactions Ibuprofen GI Upset Naproxen GI Upset Penicillins Other: See Comments Throat started to close up. VITALS: BP 128/82 Pulse 86 Temp 36.4 C (97.6 F) (Tympanic) Resp 16 Wt 77.9 kg (171 lb 12.8 oz) SpO2 96% BMI 24.19 kg/m PHYSICAL EXAM: GEN: mildly ill appearing HEENT: PERRL, EOMI, conjunctiva clear Ears: canals clear. TMs without erythema, bulge, or effusion Sinuses: pressure over sinuses Throat: moist mucous membranes, mild erythema, no exudate Neck: supple, no thyromegaly, no lymphadenopathy HEART: regular rate and rhythm, no murmurs LUNGS: clear to auscultation, no wheezes or crackles, no increased WOB ASSESSMENT/PLAN: 1. Influenza-like illness - ICD9: 487.1, ICD10: J11.1 (primary diagnosis) 2. Acute non-recurrent sinusitis, unspecified location - ICD9: 461.9, ICD10: J01.90 Day of of illness and worsening. - differential includes COVID-19, new viral illness yesterday, secondary bacterial sinusitis - Discussed supportive care treatment with home isolation, rest, cold medicine, and analgesia. - Red flags to seek further treatment include chest pain, shortness of breath, and lethargy; in the ER if severe. - DOXYCYCLINE MONOHYDRATE 100 MG CAPSULE, may discontinue if positive for COVID. - COVID & INFLUENZA A/B NAAT, ROUTINE Adolfo Zepeda MD documented in this encounter [facility] 03-19-2023 Hospital Discharg e instructions Patient Education 03/18/2023 23:15:40 Shoulder Contusion Shoulder Contusion You have a shoulder injury called a contusion. This causes pain, swelling, and sometimes bruising on the skin. You don t have any broken bones. This injury will take from a few days to several weeks to heal, depending on how severe it is. Moderate to severe shoulder contusions are treated with a sling or shoulder immobilizer. Minor contusions can be treated without any special support. Home care Follow these tips when caring for yourself at home: If you were given a sling to use, leave it in place for the time advised by your healthcare provider. If you aren t sure how long to wear it, ask for advice. If the sling becomes loose, adjust it so that your forearm is level with the ground. Your shoulder should feel well supported. Put an ice pack on the injured area for 20 minutes every 1 to 2 hours the first day. You can make your own ice pack by putting ice cubes in a plastic bag. Wrap the bag in a thin towel. Continue with ice packs 3 to 4 times a day for the next 2 days. Then use the pack as needed to ease pain and swelling. You may use acetaminophen or ibuprofen to control pain, unless another pain medicine was prescribed. If you have chronic liver or kidney disease, talk with your healthcare provider before using these medicines. Also talk with your provider if you ve ever had a stomach ulcer or GI bleeding. Shoulder and elbow joints become stiff if left in a sling for too long. You should start range of motion exercises about 7 to 10 days after the injury. Talk with your provider to find out what type of exercises to do and how soon to start. Unless your provider told you otherwise, you can take the sling off to shower or bathe. Follow-up care Follow up with your healthcare provider if you don t start getting better in the next 5 days. When to seek medical advice Call your healthcare provider right away if any of these occur: Pain or swelling gets worse or continues for more than a few days Large amount of bruising on your shoulder or upper arm Your hand or fingers become cold, blue, numb, or tingly Difficulty moving your hand or fingers Weakness in your hand or fingers Your shoulder becomes stiff Your shoulder feels like it is popping out You aren t able to do your daily activities [id number] [employer] [place] [address]. All rights reserved. This information is not intended as a substitute for professional medical care. Always follow your healthcare professional's instructions. Follow Up Care 03/18/2023 21:36:39 With:Ne Mattson [phone] Address: When:2-4 days With:DACIA CAMEJO MD Address: [address] [place] [id number]- When:2-4 days [facility] 03-18-2023 Note Discharge Instructions Thank you for allowing [facility] to assist you with your healthcare needs. The following is important discharge information regarding your hospital visit. Diagnosis from Today's Visit Contusion of right shoulder What to Do Next Instructions from Your Care Team Discharge Home Equipment - Ordered -- Sling, Arm Right, 99 month(s), 03/18/23 23:15:00 EDT Post Acute Orders No qualifying data available. You Need to Schedule the Following Appointments Follow Up with Ne Mattson [phone] When Within 2-4 days Where: Follow Up with DACIA CAMEJO MD When Within 2-4 days Where: [address] [place] [id number]- Allergies penicillin Medications Please ask your primary doctor or pharmacist before taking any other medication not listed, including over the counter drugs, herbal medications, vitamins and or supplements as they may interact with your home medications. What How Much When Why Instructions Last Dose New naproxen (naproxen 500 mg oral tablet) 1 tab(s) by mouth Two (2) times a day as needed for Pain Contusion of right shoulder Duration: 10 Days Printed Prescription Please take this list to your next doctor s visit. Bring all medications you take, including over the counter medications, herbals and other supplements with you to your doctor s visit. Patients and families are reminded to discard old lists and to update any records with all medication providers or retail pharmacies. Education Materials Shoulder Contusion You have a shoulder injury called a contusion. This causes pain, swelling, and sometimes bruising on the skin. You don t have any broken bones. This injury will take from a few days to several weeks to heal, depending on how severe it is. Moderate to severe shoulder contusions are treated with a sling or shoulder immobilizer. Minor contusions can be treated without any special support. Home care Follow these tips when caring for yourself at home: If you were given a sling to use, leave it in place for the time advised by your healthcare provider. If you aren t sure how long to wear it, ask for advice. If the sling becomes loose, adjust it so that your forearm is level with the ground. Your shoulder should feel well supported. Put an ice pack on the injured area for 20 minutes every 1 to 2 hours the first day. You can make your own ice pack by putting ice cubes in a plastic bag. Wrap the bag in a thin towel. Continue with ice packs 3 to 4 times a day for the next 2 days. Then use the pack as needed to ease pain and swelling. You may use acetaminophen or ibuprofen to control pain, unless another pain medicine was prescribed. If you have chronic liver or kidney disease, talk with your healthcare provider before using these medicines. Also talk with your provider if you ve ever had a stomach ulcer or GI bleeding. Shoulder and elbow joints become stiff if left in a sling for too long. You should start range of motion exercises about 7 to 10 days after the injury. Talk with your provider to find out what type of exercises to do and how soon to start. Unless your provider told you otherwise, you can take the sling off to shower or bathe. Follow-up care Follow up with your healthcare provider if you don t start getting better in the next 5 days. When to seek medical advice Call your healthcare provider right away if any of these occur: Pain or swelling gets worse or continues for more than a few days Large amount of bruising on your shoulder or upper arm Your hand or fingers become cold, blue, numb, or tingly Difficulty moving your hand or fingers Weakness in your hand or fingers Your shoulder becomes stiff Your shoulder feels like it is popping out You aren t able to do your daily activities 8467-4656 [employer]. [address] [place] [address]. All rights reserved. This information is not intended as a substitute for professional medical care. Always follow your healthcare professional's instructions. Additional Information VACCINATE! IT SAVES LIVES! Members of the community who have not yet received the COVID-19 vaccine and would like to receive it can visit one of [facility] vaccine clinics. There are many vaccine clinic locations within the [facility]. For locations and available times, please visit [email or web address].[email or web address] gov/. It is important to note that some COVID mobile vaccine clinics are held outdoors and may be canceled in rainy or stormy conditions. To learn more about pediatric vaccinations (ages 5-11), we invite you to visit the [facility] webpage. https://www.Feeshehs.org/p ages/1461-Cacvc-Gattvkcrqwe-Freq gfxxye-Pwwcr-Vlvctyays.html To learn more about the COVID-19 vaccine, we invite you to visit the CDC website for a list of frequently asked questions. https://www.cdc.gov/coronavirus/ 2019-ncov/vaccines/faq.html [facility] Patient Portal Access Instructions: Stay connected with your healthcare team and access your personal medical information anytime with the [facility] Patient Portal. If you would like a full copy of your medical records please contact the [facility] Medical Records Department Sunday through Sunday between 8a.m. and 4:30p.m. Please follow the directions below to access the portal: 1.Access the email account you provided upon registration to the [facility].2.Look for an invitation email from [facility].3.Open the email and access the invitation link: Accept Invitation to [facility]4.Fill in the required mayer to create your account. Sign into [email or web address] with your username and password that you created in the above steps to stay up to date. You can then view a summary of results, a summary of your visits, and the ability to download your summaries to your computer or send the information securely to a physician. Remember that your healthcare information is confidential, so carefully consider who you will allow to register on the [facility] Patient Portal for access to your information. You can also access the [employer] Patient Portal on the Echo it. Simply click on Health Records under Health Data and then click on the [employer] logo. HOW TO SAFELY DISPOSE OF PRESCRIPTION MEDICATIONS Please use one of the following methods to safely dispose of your unused medications. 1.Use a drug disposal kit: the drug disposal pouch allows you to safely discard your old and unused drugs. Ask your nurse to give you one when you are discharged.2.Visit a local take-back location: Many local pharmacies and police departments have programs that collect old and unwanted prescription drugs. Call your local pharmacy or go to http://[employer]/9I3Qy8w to find one close to you.3.Make use of household items: Use cat litter or old coffee grounds to dispose medications if other options are not available. Mix your drugs with these household products, seal them in an airtight container and throw it into the garbage. Call [facility]: [phone] to be sure your drugs can be disposed of in this way. Some medicines may require a different approach.4.Never flush your medications down the toilet. IF YOU HAVE BEEN PRESCRIBED AN OPIOIDS FOR PAIN If you have been prescribed an opioid (such as hydrocodone, oxycodone or morphine), it is critical to understand the possible side effects and risks of opioid pain medications. Even when taken as directed, opioids can have several side effects including: Tolerance, meaning you might need to take more of a medication for the same pain relief. Nausea, vomiting and/or constipation. Sleepiness, dizziness, dry mouth, confusion, depression or itching. Physical dependence, meaning you have withdrawal symptoms when a medication is stopped ? this can develop within a few days. KNOW YOUR RESPONSIBILITIES It is important to know exactly how much and how often to take the opioid pain medications you are prescribed. Never take opioids in higher amounts or more often than prescribed. Do not combine opioids with alcohol or other drugs that cause drowsiness, such as benzodiazepines, also known as benzos, including diazepam and alprazolam, muscle relaxants or sleep aids. Never sell or share prescription opioids. This is illegal. Store opioids in a secure place and out of reach of others (including children, family, friends and visitors). The last page(s) of this document has been signed and retained as a CHART COPY Signatures Patient Education Materials Shoulder Contusion Medication Leaflets My discharge plan and instructions have been reviewed and explained to me and I,PAT BONILLA understand my current condition and have read and understand these discharge instructions. I have received a written copy of the plan/instructions. If I have questions, I am aware that I should contact my doctor. Patient/Automotive Sales Representative Signature: Date/Time: Relationship to Patient: Witness Name/Signature: Date/Time: [facility] 03-18-2023 Note ORIGINAL EXAMINATION: TWO XRAY VIEWS OF THE RIGHT SHOULDER 03/18/2023 10:54 pm COMPARISON: None. HISTORY: ORDERING SYSTEM PROVIDED HISTORY: Reason for Exam: pain FINDINGS: No acute fracture or dislocation. Apparent irregularity of the inferior glenoid rim on the Grashey view is likely projectional. No significant degenerative change or acute osseous abnormality. Limited images of the thorax are noncontributory. IMPRESSION: No acute fracture or dislocation. Interpreted by: Heavenly Clay MD Preliminary Report By: Heavenly Clay MD Electronically signed By Heavenly Clay MD Dictated Date: 03/18/2023 11:05:23 PM Prelim Date: 03/18/2023 11:06:44 PM Sign Date: 03/18/2023 11:06:44 PM Ordering Provider: JORDYN COFFMAN [facility] 03-18-2023 Note ORIGINAL EXAMINATION: TWO XRAY VIEWS OF THE RIGHT SHOULDER 03/18/2023 10:54 pm COMPARISON: None. HISTORY: ORDERING SYSTEM PROVIDED HISTORY: Reason for Exam: pain FINDINGS: No acute fracture or dislocation. Apparent irregularity of the inferior glenoid rim on the Grashey view is likely projectional. No significant degenerative change or acute osseous abnormality. Limited images of the thorax are noncontributory. IMPRESSION: No acute fracture or dislocation. Interpreted by: Heavenly Clay MD Preliminary Report By: Heavenly Clay MD Electronically signed By Heavenly Clay MD Dictated Date: 03/18/2023 11:05:23 PM Prelim Date: 03/18/2023 11:06:44 PM Sign Date: 03/18/2023 11:06:44 PM Ordering Provider: JORDYN COFFMAN [facility] 06-24-2022 Hospital Discharg e instructions Swapna Mercedes MD - 06/24/2022 10:30 AM EDT ED due to chest pain, EKG, and chest x-ray actually abnormalities. You are safe to go home at this time. Please return to the ED if suddenly worsening chest pain, shortness of breath, or any other acute concerns. Provide information to follow-up with a primary care doctor, call them to establish. Needed. The following attachments cannot be sent through Care Everywhere.Pleurisy (Venezuelan)documented in this encounter [facility] Work Phone: Evaluation + Plan note No data available for this section [facility] documented in this encounter [facility] Work Phone: Evaluation note* Diagnosis Influenza-like illness- Primary Influenza with other respiratory manifestations Acute non-recurrent sinusitis, unspecified location documented in this encounter [facility] Summary Purpose Family History No Family History Records FoundNo Family History Records FoundNo Family History Records FoundNo Family History Records FoundNo Family History Records FoundNo Family History Records FoundNo Family History Records Found No data available for this section Advance Directives Documents on File Type Date Recorded Patient Automotive Sales Representative Expl anation Advance Directives and Living Will Power of Embedded Linux Developer Documents on File Type Date Recorded Patient Automotive Sales Representative Expl anation ACP-Advance Directive ACP-Power of Embedded Linux Developer Documents on File Type Date Recorded Patient Automotive Sales Representative Expl anation ACP-Advance Directive ACP-Power of Embedded Linux Developer Discharge Instructions * Instructions* Seng Glover MD - 12/20/2019 Can also use Advil and Tylenol Return for worse facial swelling or high fever * Attachments The following attachments cannot be sent through Care Everywhere. * Tooth and Gum Pain ([place]enezuelan) * Tooth: Abscessed ([place]) * Tooth Decay ([place]) documented in this encounter* Instructions* [place] Dorado MD - 06/08/2020 Ice her hand 20 minutes on 20 minutes off. If your fingers began to get more tingly, then you need to remove the Simone bandage and elevate her hand. Follow-up with the primary care doctor we referred you to. * Attachments The following attachments cannot be sent through Care Everywhere. * Contusion: Hand ([place]) documented in this encounter* Instructions* Damion Kang MD - 08/02/2020 Rest and ice right elboe * Attachments The following attachments cannot be sent through Care Everywhere. * Strain or Sprain ([place]an) * Elbow Sprain ([place]an) documented in this encounter* Instructions* Errol Merida MD - 09/25/2020 Apply heat to the painful areas with a heating pad. Return to the emergency Department if you develop pain with flexion of your fingers or swelling worsens. * Attachments The following attachments cannot be sent through Care Everywhere. * Cellulitis ([place]) documented in this encounter Assessments Diagnosis Pain, dental Unspecified disorder of the teeth and supporting structures Dental abscess Periapical abscess without sinus Dental caries Unspecified dental caries Diagnosis Contusion of right hand including fingers, initial encounter Diagnosis Infected superficial injury of right hand, initial encounter Diagnosis Forearm sprain, right, initial encounter Elbow sprain, right, initial encounter Diagnosis Cellulitis of right upper extremity- Primary Cellulitis and abscess of upper arm and forearm Reason for Referral Status Reason Specialty Diagnoses / Procedures Referred By Contact Referred To Contact Open Specialty Services Required Family Medicine Diagnoses Contusion of right hand including fingers, initial encounter La Dorado MD [address] [place] [address] [facility] Maria Eugenia [address] [place] [address] Scheduling [facility] [address] [place] [id number] Additional Source Comments (unrecognized sect ion and content) No Status Records FoundNo Status Records FoundNo Status Records FoundNo Status Records FoundNo Status Records FoundNo Status Records FoundNo Status Records Found INFORMATION SOURCE (unrecogn ized section and content) DATE CREATED AUTHOR AUTHOR'S ORGANIZ ATION 11/23/2018 [facility] DATE CREATED AUTHOR AUTHOR'S ORGANIZ ATION 09/28/2020 [facility] DATE CREATED AUTHOR AUTHOR'S ORGANIZ ATION 07/03/2022 [facility] DATE CREATED AUTHOR AUTHOR'S ORGANIZ ATION 07/22/2022 [facility] DATE CREATED AUTHOR AUTHOR'S ORGANIZ ATION 03/29/[address] [facility] ([place] DATE CREATED AUTHOR AUTHOR'S ORGANIZ ATION 09/22/2023 [facility] Reason for Visit (unrecogniz ed section and content) Reason Comments Hand Injury Reason Comments Hand Injury Reason Comments Arm Pain forearm/elbow Reason Comments Insect Bite pt. reports he was b it by a spider 2 days ago on palm of hand Reason Comments Shortness of Breath Pt came in from [facility] through EMS with SOB. Pt says he also has pain is in the shoulder blades. Reason Comments Cough Cough, congestion, f ever and BARRIOS x 1 week Reason Comments Vomiting Reason Comments Results Ordered Prescriptions (unrec ognized section and content) Patient Care team informatio n (unrecognized section and content) Care Team Personnel Name: DACIA CAMEJO MD Member Role: Primary Care Physician Address: Address: [address] [place] [address] Name: JORDYN COFFMAN MD Position: ED Physician Member Role: ED Physician Address: Address: [facility] [address] [place], [place] [address] Care Team Related Persons Name: FRANKIE BONILLA Name: FRANKIE BONILLA Name: FRANKIE BONILLA Care Team Personnel Name: DACIA CAMEJO MD Member Role: Primary Care Physician Address: Address: [address] [place] [address] Care Team Related Persons Name: FRANKIE BONILLA Name: FRANKIE BONILLA Name: FRANKIE BONILLA Source Comments (unrecognize d section and content) In the event this informatio n is protected by the [facility] Confidentiality of Alcohol and Drug Abuse Patient Records regulations: The Federal rules restrict any use of the information to criminally investigate or prosecute any alcohol or drug abuse patient.[facility] the event this information is protected by the Federal Confidentiality of Alcohol and Drug Abuse Patient Records regulations: The Federal rules restrict any use of the information to criminally investigate or prosecute any alcohol or drug abuse patient.[facility] the event this information is protected by the Federal Confidentiality of Alcohol and Drug Abuse Patient Records regulations: The Federal rules restrict any use of the information to criminally investigate or prosecute any alcohol or drug abuse patient.[facility] FOR RECORDS PERTAINING TO PATIENTS WHO ARE OR HAVE BEEN ENROLLED IN A CHEMICAL DEPENDENCY/SUBSTANCEABUSE PROGRAM, SOME INFORMATION MAY BE OMITTED. This clinical summary was aggregated from multiple sources. Caution should be exercised in using it in the provision of clinical care. This summary normalizes information from multiple sources, and as a consequence, information in this document may materially change the coding, format and clinical context of patient data. In addition, data may be omitted in some cases. CLINICAL DECISIONS SHOULD BE BASED ON THE PRIMARY CLINICAL RECORDS. [facility] [employer] [facility]. provides no warranty or guarantee of the accuracy or completeness of information in this document.
== END 2023-10-17 13:35 | disposition left against medical advice (07) ==
LOC: ED 11:59
PROVIDERS: Emergency Provider Emergency Medicine; PCP Family Medicine; Visit Provider Emergency Medicine
DX: S29.012A Strain of muscle and tendon of back wall of thorax, initial encounter (principal); J44.9 Chronic obstructive pulmonary disease, unspecified; M62.830 Muscle spasm of back; W01.0XXA Fall on same level from slipping, tripping and stumbling without subsequent striking against object, initial encounter; Z87.891 Personal history of nicotine dependence
CPT/HCPCS: 72072; 99282

== ENCOUNTER 2023-10-24 13:30 | Emergency (ER) | payer BC, MEDICAID, SELFPAY ==
[2023-10-24 13:32] VITALS: BP 135/97; PULSE 78; RESP 16; TEMP 36.4; O2SAT 98; BMI 27.2
--- NOTE | 2023-10-24 13:57 | EX.ED.VIS.PS ---
HPI HPI - Psych History of Present Illness Chief Complaint: Mental Health Detail of Chief Complaint: Mental health evaluation Informant: patient Narrative Narrative: Patient presents to the emergency department at request of counseling center for mental health evaluation. Patient apparently had gone to the counseling center to get back on his antidepressant medication because he has been off of it for several years. Patient states that several nights ago he had had some issues with family members and was locked outside and had thoughts of wanting to go use heroin to get high. He denied feeling suicidal or homicidal. He apparently was advised to come into the emergency department to get back on his medications. Patient got upset and left the counseling center before he was pink slipped and then apparently the counseling center pink slipped him. He presented to the emergency department 3 hours later of his own volition. Patient denies any auditory or visual hallucinations. He was actually in the emergency department earlier today with his dang's daughter who had had a head injury. Patient denies recent illness. He does not want to be evaluated by her clinical social worker and does not want to have any blood work or urinalysis or any type of testing done. There is currently no available pink slipped here. [facility] Medical History COPD (chronic obstructive pulmonary disease) Home Medications NK 10/24/23 [History Last Taken Unknown] Allergy/AdvReac Type Severity Reaction Status Date / Time Penicillins Allergy Hives Verified 10/24/23 13:32 ibuprofen AdvReac Nausea Verified 10/24/23 13:32 Social History Smoking Status: Unknown if ever smoked ROS ROS ED Review of Systems ROS Unobtainable: other Constitutional Constitutional ED: Reports lethargy; Denies chills, fever(s), sweats or weight loss Eyes Eyes: Denies blurry vision, change in vision or diplopia ENT ENT ED: Denies rhinorrhea or sore throat Cardiovascular Cardiovascular: Denies chest pain, orthopnea or racing heartbeat Respiratory/Chest Respiratory/Chest: Denies cough, dyspnea, dyspnea on exertion, orthopnea or sputum Gastrointestinal Gastrointestinal: Denies abdominal pain, diarrhea, nausea or vomiting Genitourinary Genitourinary ED: Denies dysuria, hematuria or urinary frequency Musculoskeletal Musculoskeletal: Denies arthralgias, back pain, myalgias or neck pain Integumentary Denies abscess, Abrasions or rash Neurologic Neurologic: Denies headache(s) or weakness Psychiatric Psychiatric: Denies anxiety, depression or suicidal thoughts Endocrine Endocrinology: Denies polydipsia, polyphagia or polyuria Hematologic/Lymphatic Hematologic/Lymphatic: Denies easy bleeding, easy bruising or lymphadenopathy Allergic/Immunologic Allergic/Immunologic ED: Denies mouth swelling, tongue swelling or urticaria EXAM Physical Exam Const Vital Signs: 10/24/23 13:32 Temperature 97.6 F L Temperature Source Temporal Pulse Rate 78 Respiratory Rate 16 Blood Pressure 135/97 H Blood Pressure Mean 109 Pulse Ox 98 Oxygen Delivery Method Room Air Positive well nourished and well developed General Appearance ED: well developed and NAD HEENT Reports TM's clear and moist mucous membranes normocephalic and atraumatic; Negative for trauma or tenderness Tympanic Membrane ED: Yes TM's clear Eyes PERRL and EOMs intact bilaterally General Eye ED: Negative for pale conjunctiva or scleral icterus Neck no lymphadenopathy, supple and no JVD General: Negative for tenderness Chest Wall inspection of chest normal and palpation of chest normal Chest: Negative for tenderness Resp normal respiratory effort and clear to auscultation bilaterally Effort and Inspection: Negative for respiratory distress or pain with movement Auscultation: Negative for rhonchi, wheezes or diminished lung sounds Cardio regular rate, regular rhythm, S1 normal heart sound, S2 normal heart sound and no murmurs Peripheral Pulses: pulses 2+ throughout GI normal to inspection, nondistended, normoactive bowel sounds, soft to palpation, non-tender, non-distended and no masses Back/Spine no CVA tenderness and no thoracic nor lumbar tenderness Extremity normal to inspection General Extremety ED: Negative for edema General Extremity: Negative for edema Neuro oriented x3, CN's II-XII intact bilaterally, no sensory deficits noted and gait normal Sensorium / Orientation: awake, alert, oriented to person, oriented to place and oriented to time Motor Exam: strength 5/5 throughout and strength abnormal Psych mental status grossly normal Skin no rashes or lesions noted and no wounds MDM MDM MDM Narrative Medical decision making narrative: Patient presents to the emergency department requesting Seroquel for which she had been on years ago. He is denying suicidality. He is denying feeling homicidal. Does not want evaluation otherwise by clinical social worker and is refusing blood work and toxicology screen. He clinically looks well and has capacity. I will attempt to get in touch with counselor who saw him earlier today who understand her concerns as at this time I do not have a good reason to hold him against his will. I was able to discuss with clinical social worker who saw patient in the office today. She relates that he did make statements of suicidality and wanting to harm himself and that he was just done with things and wanted to just get a rope. She has significant concerns regarding his depression and has concerns about patient self-harm. He has had prior suicide attempts in the past. Patient apparently has not been honest with me regarding what was said to clinical social worker. He is evasive. She felt patient would require hospitalization for stabilization of his depression. 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 Care of patient will be turned over to evening physician awaiting placement by crisis. Lab Data Attestation: I reviewed the patient's lab results. Labs: Laboratory Results - last 24 hr 10/24/23 10/24/23 14:30 15:00 WBC 8.6 RBC 5.92 Hgb 16.5 Hct 50.0 MCV 84.5 MCH 27.9 MCHC 33.0 RDW Std Deviation 39.7 RDW Coeff of Marquse 12.9 Plt Count 254 MPV 9.9 Immature Gran % (Auto) 0.700 Neut % (Auto) 61.1 Lymph % (Auto) 24.8 [place] % (Auto) 10.3 H Eos % (Auto) 2.0 Baso % (Auto) 1.1 H Absolute Neuts (auto) 5.2 Absolute Lymphs (auto) 2.12 Nucleated RBC % 0 Sodium 137 Potassium 4.1 Chloride 102 Carbon Dioxide 31.0 Anion Gap 4 L BUN 20 H Creatinine 1.16 Estim Creat Clear Calc 100.34 Est GFR (MDRD) Af Amer 93 Est GFR (MDRD) Non-Af 77 BUN/Creatinine Ratio 17.2 Glucose 132 H Calcium 9.6 Urine Opiates Screen NEGATIVE Urine Methadone Screen NEGATIVE Ur Barbiturates Screen NEGATIVE Ur Phencyclidine Scrn NEGATIVE Ur Amphetamines Screen POSITIVE H MDMA (Ecstasy) Screen POSITIVE H U Benzodiazepines Scrn NEGATIVE Urine Cocaine Screen NEGATIVE U Cannabinoids Screen POSITIVE H Ur Drug Screen Comment Ethyl Alcohol < 3.0 Discharge Plan Triage Chief Complaint: Mental Health ED Provider: Cheo Short Dx/Rx/DC Orders Clinical Impression: Illicit drug use, Suicidal ideation, Depression Prescriptions: No Action prednisone 20 mg tablet 60 mg PO DAILY Qty: 15 0RF cyclobenzaprine [cyclobenzaprine] 10 mg tablet 10 mg PO TID PRN (Reason: Muscle Spasm) Qty: 15 0RF prednisone 20 mg tablet 60 mg PO DAILY Qty: 15 0RF Primary Care Provider: Dacia Camejo Referrals: Dacia Camejo MD [Primary Care Provider] - Disposition Disposition: Psychiatric Hospital or Unit
[2023-10-24 14:52] LABS: Absolute Lymphocyte Count 2.12 X10^3/uL (0.83-4.51); Absolute Neutrophil Count 5.2 X10^3/uL (2.0-7.7); Basophil# 0.09 X10^3/uL; Basophil% 1.1 % (0-1); Eosinophil# 0.17 X10^3/uL; Hemoglobin 16.5 g/dL (13.0-16.5); Lymphocyte # 2.12 X10^3/ul (0.83-4.51); Lymphocyte % 24.8 % (19-41); Mean Corpuscular Hgb 27.9 pg (27.0-32.0); Mean Corpuscular Volume 84.5 fL (80-94); Mean Platelet Vol. 9.9 fl (6.2-12.0); Monocyte# 0.88 X10^3/uL; Monocyte% 10.3 % (0-10); NRBC Flagged by Analyzer 0 % (0-5); Neutrophil # 5.24 X10^3/uL (2.7-7.7); Neutrophil % 61.1 % (47-70); Platelet Count 254 K/mm3 (150-450); RBC Distribution Width CV 12.9 % (11.6-14.6); RBC Distribution Width SD 39.7 fl (35.1-43.9); Red Blood Count 5.92 M/mm3 (4.6-6.2); White Blood Count 8.6 K/mm3 (4.4-11.0)
[2023-10-24 15:11] LABS: Anion Gap 4 (5-15); BUN 20 mg/dL (7-18); BUN/Creat Ratio 17.2 RATIO (10-20); Calcium,Total 9.6 mg/dL (8.5-10.1); Chloride 102 mmol/L (98-107); Creatinine, Serum 1.16 mg/dL (0.70-1.30); EST Glomerular Filtration Rate 77 mL/min (>60); Est Glom Filt Rate - Afr Amer 93 mL/min (>60); Estimated Creatinine Clearance 100.34 ml/min; Glucose 132 mg/dL (74-106); Potassium 4.1 mmol/L (3.5-5.1); Sodium Level 137 mmol/L (136-145)
[2023-10-24 15:21] LABS: Alcohol, Blood (Medical)-Serum < 3.0 mg/dL
[2023-10-24 15:21] LABS: Amphetamine Urine VISTA POSITIVE (<1000 ng/mL); Barbiturate Urine VISTA NEGATIVE (< 200 ng/mL); Benzodiazepine Urine VISTA NEGATIVE (< 200 ng/mL); Cocaine Urine VISTA NEGATIVE (< 300 ng/mL); Ecstacy Urine VISTA POSITIVE (< 500 ng/mL); Methadone Urine VISTA NEGATIVE (< 300 ng/mL); PCP Urine VISTA NEGATIVE (< 25 ng/mL); THC Urine VISTA POSITIVE (< 50 ng/mL); Vista UDS pH Range 6
--- NOTE | 2023-10-24 15:29 | NURSING ---
FAXED CHART TO CRISIS. CALLED [facility]
--- NOTE | 2023-10-24 16:16 | ED.RN ---
pt and mom report that patient is not taking any home meds.
--- OUTSIDE RECORDS SUMMARY | 2023-10-24 17:49 | XMS RPT_ITS | CCD ---
Author Name Unknown Address [address] [place] [address] Organization [facility] Care Team Providers Care Warehouse Administrative Assistant Name Role Phone DI TIM Unavailable Unavailable ESTERDI ECHOLS Unavailable Unavailable ESTERDI [...] DR DACIA CAMEJO MD Primary Care Physician [phone] JORDYN COFFMAN MD Attending Unavailable DR DACIA CAMEJO MD Primary Care Unavailable Unavailable Primary Care Provider Unavailabl e Allergies Allergy Classification Reported Allergen(s) Allergy Type Date of Onset Reaction(s) Facility (6 sources) ibuprofen; Translations: [IBUPROFEN] Drug Allergy 5 GI Upset [facility] Repository (6 sources) naproxen; Translations: [NAPROXEN] Drug Allergy 5 GI Upset [facility] Repository (12 sources) Penicillins; Translations: [PENICILLINS] Propensity to adverse reactions to drug (disorder) 3 Anaphylaxis, Other: See Comments [facility] Other [place] Repository (2 sources) Penicillin; Translations: [penicillins] Drug Allergy [facility] Medications Current Medications Medication Drug Class(es) Dates [...] Body height 182.9 cm RUBEN JOVEL MD [facility] 10-09-2023 10:28-0500 Body temperature 96.98 [degF] RUBEN JOVEL MD [facility] 10-09-2023 10:28-0500 Body weight 86.4 kg RUBEN JOVEL MD [facility] 10-09-2023 10:28-0500 Diastolic Blood Pressure Non-Invasive 82 mm[Hg] RUBEN JOVEL MD [facility] 10-09-2023 10:28-0500 Heart rate 101 /min RUBEN JOVEL MD [facility] 10-09-2023 10:28-0500 Respiratory rate 18 /min RUBEN JOVEL MD [facility] 10-09-2023 10:28-0500 Systolic Blood Pressure Non-Invasive 138 mm[Hg] RUBEN JOVEL MD [facility] 06-09-2023 14:20-0400 Body temperature 97.59 [degF] Adolfo Zepeda MD Work Phone: [facility] 06-09-2023 14:20-0400 Body weight 77.93 kg Adolfo Zepeda MD Work Phone: [facility] 06-09-2023 14:20-0400 Diastolic blood pressure 82 mm[Hg] Adolfo Zepeda MD Work Phone: [facility] 06-09-2023 14:20-0400 Heart rate 86 /min Adolfo Zepeda MD Work Phone: [facility] 06-09-2023 14:20-0400 Respiratory rate 16 /min Adolfo Zepeda MD Work Phone: [facility] 06-09-2023 14:20-0400 SaO2% (BldA) [Mass fraction] 96 % Adolfo Zepeda MD Work Phone: [facility] 06-09-2023 14:20-0400 Systolic blood pressure 128 mm[Hg] Adolfo Zepeda MD Work Phone: [facility] 03-18-2023 21:47-0400 Blood Pressure Cuff Size JORDYN COFFMAN MD [facility] 03-18-2023 21:47-0400 Blood Pressure Location JORDYN COFFMAN MD [facility] 03-18-2023 21:47-0400 Blood Pressure Method JORDYN COFFMAN MD [facility] 03-18-2023 21:47-0400 Body temperature 98.06 [degF] JORDYN COFFMAN MD [facility] 03-18-2023 21:47-0400 Diastolic Blood Pressure Non-Invasive 79 1 JORDYN COFFMAN MD [facility] 03-18-2023 21:47-0400 Heart rate 83 /min JORDYN COFFMAN MD [facility] 03-18-2023 21:47-0400 Respiratory rate 18 /min JORDYN COFFMAN MD [facility] 03-18-2023 21:47-0400 Systolic Blood Pressure Non-Invasive 132 1 JORDYN COFFMAN MD [facility] 06-24-2022 14:18-0400 Diastolic blood pressure 86 mm[Hg] Seng Glover MD Work Phone: [facility] 06-24-2022 14:18-0400 Heart rate 71 /min Seng Glover MD Work Phone: [facility] 06-24-2022 14:18-0400 Respiratory rate 16 /min Seng Glover MD Work Phone: [facility] 06-24-2022 14:18-0400 Systolic blood pressure 122 mm[Hg] Seng Glover MD Work Phone: [facility] 06-24-2022 13:11-0400 SaO2% (BldA) [Mass fraction] 99 % Seng Glover MD Work Phone: [facility] 06-24-2022 09:03-0400 Body height 180.3 cm Seng Glover MD Work Phone: [facility] 06-24-2022 09:03-0400 Body mass index (BMI) [Ratio] 25.8 kg/m2 Seng Glover MD Work Phone: [facility] 06-24-2022 09:03-0400 Body temperature 97.9 [degF] Seng Glover MD Work Phone: [facility] 06-24-2022 09:03-0400 Body weight 83.92 kg Seng Glover MD Work Phone: [facility] 09-25-2020 10:11-0500 Body Temperature 97.59 [degF] Errol Fuad [employer], [place] 09-25-2020 10:11-0500 BP Diastolic 101 mm[Hg] Errol Fuad [employer] , [place] 09-25-2020 10:11-0500 BP Systolic 146 mm[Hg] [place] [facility] [place] 09-25-2020 10:11-0500 Pulse (Heart Rate) 103 /min Errol Merida [facility], [place] 09-25-2020 10:11-0500 Pulse Oximetry 100 % rErol Blackwood [facility] [place] , [place] 09-25-2020 10:11-0500 Respiratory Rate 18 /min Errol [facility] [place] 08-02-2020 07:26-0500 Body Temperature 98.01 [degF] Damion [facility] [place], [place] 08-02-2020 07:26-0500 BP Diastolic 97 mm[Hg] [facility] [place] 08-02-2020 07:26-0500 BP Systolic 137 mm[Hg] Damion Cloud9 [facility] [place] 08-02-2020 07:26-0500 Pulse (Heart Rate) 97 /min [facility] [place] 08-02-2020 07:26-0500 Pulse Oximetry 100 % [facility] [place] 08-02-2020 07:26-0500 Respiratory Rate 18 /min Dam[facility] [place] 06-10-2020 14:27-0400 BP Diastolic 100 mm[Hg] [facility] [place] 06-10-2020 14:27-0400 BP Systolic 138 mm[Hg] [facility] , [place] 06-10-2020 14:27-0400 Pulse (Heart Rate) 85 /min [facility] [place] 06-10-2020 14:27-0400 Pulse Oximetry 99 % [facility] [place] 06-10-2020 14:27-0400 Respiratory Rate 14 /min [facility] [place] 06-10-2020 13:40-0400 BMI (Body Mass Index) 25.09 kg/m2 [facility]ema [facility], [place] 06-10-2020 13:40-0400 Body Temperature 98.01 [degF] [facility] [place] 06-10-2020 13:40-0400 Body weight 83.92 kg [facility] , [place] 06-10-2020 13:40-0400 Height 182.9 cm Hema Andrew [facility] , [place] 06-08-2020 19:10-0400 Body Temperature 98.4 [degF] [place] [facility], [place] 06-08-2020 19:10-0400 BP Diastolic 97 mm[Hg] [facility] , [place] 06-08-2020 19:10-0400 BP Systolic 131 mm[Hg] [facility] [place] 06-08-2020 19:10-0400 Pulse (Heart Rate) 93 /min [facility] [place] 06-08-2020 19:10-0400 Pulse Oximetry 99 % [facility] [place] 06-08-2020 19:10-0400 Respiratory Rate 16 /min [facility] [place] 12-20-2019 13:18-0400 BP Diastolic 84 mm[Hg] [facility]eng [facility] , [place] 12-20-2019 13:18-0400 BP Systolic 136 mm[Hg] [facility] [place] 12-20-2019 13:01-0400 BMI (Body Mass Index) 25.8 kg/m2 Seng Glover [facility] 12-20-2019 13:01-0400 Body Temperature 97.81 [degF] [facility] [place] 12-20-2019 13:01-0400 Body weight 83.92 kg [facility]eng [facility] [place] 12-20-2019 13:01-0400 Height 180.3 cm [facility]eng [facility] [place] 12-20-2019 13:01-0400 Pulse (Heart Rate) 100 /min [facility] [place] 12-20-2019 13:01-0400 Pulse Oximetry 100 % [facility] [place] 12-20-2019 13:01-0400 Respiratory Rate 17 /min [facility] [place] Encounters Encounter Date Encounter Type Care Provider Facility Start: 10-09-2023 End: 10-09-2023 Emergency department patient visit RUBEN JOVEL MD [facility] Start: 09-20-2023 End: 09-20-2023 ambulatory Facility:[facility] Start: 06-10-2023 ambulatory Felicitas Patel RN NU RSE FISH ROE PROCESSOR Procedures Date Procedure Procedure Detail Performing Clinician [...] Start: 05-11-2023 Influenza vaccination Influenza Vaccine (#[facility]) [facility] Start: 04-10-2022 Influenza vaccination Flu vaccine (#1) [facility] Start: 06-14-2020 End: 06-14-2020 Office Visit 06/14/2020 Office Visit Family Medicine Bess Muniz, SUPERVISORY FORESTER - YARD WORKER [address] [place] [address] [phone] [facility] Start: 05-11-2020 Influenza vaccination [place] Start: 2009 DTaP/Tdap/Td vaccine (1 - Tdap) DTaP/Tdap/Td vaccine (1 - Tdap) [facility] Start: 2009 Urine microalbumin profile DTaP,Tdap,Td Vaccine (1 - Tdap) [facility] Start: 2008 Hepatitis C screening Hepatitis C screen [facility] Start: 2008 Hepatitis C Screening Hepatitis C Screening [facility] Start: 2008 HIV Screening HIV Screening [facility] Start: 2005 HIV screen HIV screen [place] Start: 2005 [facility] Start: 2002 Depression Screen Depression Screen [facility] Start: 1996 Pneumococcal 0-64 years Vaccine (1 - PCV) Pneumococcal 0-64 years Vaccine (1 - PCV) [facility] Start: 1996 Pneumococcal 0-64 years Vaccine (1 of 1 - PPSV23) Pneumococcal 0-64 years Vaccine (1 of 1 - PPSV23) [place] Start: 1996 Pneumococcal vaccination Pneumococcal Vaccine (1 - PCV) [facility] Start: 11-19-1991 Varicella vaccine (1 of 2 - 2-dose childhood series) Varicella vaccine (1 of 2 - 2-dose childhood series) [facility] Start: 05-21-1991 COVID-19 Vaccine (#1) COVID-19 Vaccine (#1) [facility] Start: 1990 Hepatitis B Vaccine (1 of 3 - 3-dose series) Hepatitis B Vaccine (1 of 3 - 3-dose series) [facility] Start: 1990 Hepatitis C screening Hepatitis C screen [place] EKG 12 Lead EKG 12 Lead ECG STAT 06/24/2022 9:14 AM EDT [facility] Work Phone: Influenza virus A an d B RNA and SARS-CoV-2 (COVID-19) N gene panel - Respiratory specimen by TRINIDAD with probe detection COVID & INFLUENZA A/B NAAT, ROUTINE Microbiology Routine Influenza-like illness Acute non-recurrent sinusitis, unspecified location 06/09/2023 2:41 PM EDT [facility] Work Phone: End: 06-10-2020 XR HAND RIGHT (MIN 3 VIEWS) XR HAND RIGHT (MIN 3 VIEWS) Imaging STAT Once for 1 Occurrences starting 06/10/2020 until 06/10/2020 [place] Payers Date Payer Category Payer Medicaid [id number] 2022 Medicaid [place] [employer] [id number] 2022-[facility] [phone] [address] [place] [address] Medicaid [id number] 2018 Medicaid [id number] 1990 Unknown [id number] 1990 Unknown [id number] 1990 Unknown [id number] 1990 Unknown [id number] 1990 Unknown [id number] 1990 Unknown [id number] 1990 Unknown [id number] 1990 Unknown [id number] 1990 Unknown [id number] 1990 Unknown [id number] Unknown Social History Date Type Detail Facility Start: 12-20-2019 End: 06-09-2023 Tobacco smoking status NHIS Current every day smoker [place] History of tobacco use Cigarette Smoker [place] Start: 12-20-2019 End: 08-18-2020 Cigarettes smoked current (pack per day) - Reported [facility] Start: 12-20-2019 End: 06-10-2020 Alcohol intake Current drinker of alcohol (finding) [place] Start: 06-21-2016 Alcohol Comment occ [facility] [place] Start: 1990 Sex Assigned At Not on file [place] Exposure to SARS-CoV -2 (event) Unable to assess [place] Start: 03-04-2019 End: 06-08-2020 Tobacco use and exposure Never used [place] Start: 06-14-2022 End: 06-24-2022 Exposure to SARS-CoV-2 (event) Not sure [place] Sex Assigned At Sex [facility] Start: 06-09-2023 Tobacco use and exposure User of smokeless tobacco [facility] History of tobacco use Chews Tobacco [facility] Start: 06-09-2023 Alcohol intake 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 (finding) [facility] Start: 08-18-2020 End: 06-09-2023 Tobacco use panel [facility] Adult Depression Screening Assessment 6 [facility] Start: 06-09-2023 Tobacco Comment started smoking 17yo [facility] Start: 1990 Sex Assigned At Male C [facility] Start: 02-19-2018 Gender identity Identifies as male gender (finding) [facility] Start: 10-09-2023 Tobacco smoking status Heavy t obacco smoker (finding) [facility] Medical Equipment Procedure Code Equipment Code Equipment Origin al Text Equipment Identifier Dates Connector Axogua rd 3mm Porcine Extracellular Matrix 15mm Nerve Coaptation - [id number] Start: 02-19-2018 Functional Status Date Assessment Result Facility 10-09-2023 Functional Status Standard Safet y ID band on, Call device within reach, Bed in low position, Wheels locked, Upper/Half-Length side-rails up [facility] Mental Status Date Assessment Result Facility 10-09-2023 Mental Status Orientation Oriented x 4 [facility] Clinical Notes 06-24-2022 to 10-09-2023 Telephone [...] with a towel. Medicine You can take hqya-dwt-wnesgkg medicine for pain, unless you were given [...] swelling or pus coming from the wound [id number] [employer] [address] [place] [address], [place] [address]. All rights reserved. This information is not [...] affected hand Decreased movement of the hand 4888-3352 [employer] [address] [place] [address]. All rights reserved. This information is not [...] any signs of infection With:DACIA CAMEJO Address: [address] [place], [place] [address]- [facility] (1) When:2-4 days [facility] 10-09-2023 Note Discharge Instructions Thank you for allowing [facility] to assist you with your healthcare needs. [...] DACIA CAMEJO When Within 2-4 days Where: [address] [place], [place] [id number] [facility] (1) Allergies penicillin Medications Please ask [...] may report side effects to FDA at 3-390-CEV-8802. What other drugs will affect cephalexin? Tell your doctor about all your other medicines, especially: metformin; or probenecid. This list is not complete. Other drugs may affect cephalexin, including prescription and beyv-fut-xubarro medicines, vitamins, and herbal products. Not all [...] to ensure that the information provided by [employer] ('[employer]') is accurate, up-to-date, and complete, but no guarantee is made to that effect. Drug information contained herein may be time sensitive. [employer] information has been compiled for use by healthcare practitioners and consumers in the [place] and therefore [employer] does not warrant that uses outside of the [place] are appropriate, unless specifically indicated otherwise. [employer] drug information does not endorse drugs, diagnose patients or recommend therapy. [employer] drug information is an informational resource designed [...] effective or appropriate for any given patient. [facility] does not assume any responsibility for any aspect of healthcare administered with the aid of information [facility] provides. The information contained herein is not intended to cover all possible uses, directions, precautions, warnings, drug interactions, allergic reactions, or adverse effects. If you have questions about the drugs you are taking, check with your doctor, nurse or pharmacist. Copyright 8887-8679 [facility] [employer]. Version: 08.10. Revision Date: 04/11/2023. Education Materials [...] with a towel. Medicine You can take ecxx-aex-vkbpvhy medicine for pain, unless you were given [...] swelling or pus coming from the wound 8517-5133 [employer] [address] [place] [address]. All rights reserved. This information is not [...] affected hand Decreased movement of the hand 7548-9314 [employer] [address] [place] [address], [place] [address]. All rights reserved. This information is not intended as a substitute for professional medical care. Always follow your healthcare professional's instructions. Additional Information VACCINATE! IT SAVES LIVES! Members of the community who have not yet received the COVID-19 vaccine and would like to receive it can visit one of [facility] vaccine clinics. There are many vaccine clinic locations within the [facility]. For locations and available times, please visit [email or web address] It is important to note that some COVID mobile vaccine clinics are held outdoors and may be canceled in rainy or stormy conditions. To learn more about pediatric vaccinations (ages 5-11), we invite you to visit the [employer] [facility] webpage. https://www.[employer].org/p ages/4738-Ckpgq-Ryrfnoundaz-Freq wsczmd-Uovrs-Etofmrufb.html To learn more about the COVID-19 vaccine, we invite you to visit the CDC website for a list of frequently asked questions. https://www.cdc.gov/coronavirus/ 2019-ncov/vaccines/faq.html [facility] [employer] Patient Portal Access Instructions: Stay connected with your healthcare team and access your personal medical information anytime with the [employer] Patient Portal. If you would like a full copy of your medical records please contact the [facility] Medical Records Department Sunday through Sunday between 8a.m. and 4:30p.m. Please follow the directions below to access the portal: 1.Access the email account you provided upon registration to the hospital.2.Look for an invitation email from [facility].3.Open the email and access the invitation link: Accept Invitation to [employer]4.Fill in the required mayer to create your account. Sign into www.[email or web address] with your username and password that you [...] you will allow to register on the [employer] Patient Portal for access to your information. You can also access the [employer] Patient Portal on the [employer] laura. Simply click on Health Records under Health Data and then click on the [employer] logo. HOW TO SAFELY DISPOSE OF PRESCRIPTION [...] Call your local pharmacy or go to http://[employer].Qapa/[email or web address] to find one close to you.3.Make use of household items: Use cat litter or old coffee grounds to dispose medications if other options are not available. Mix your drugs with these household products, seal them in an airtight container and throw it into the garbage. Call [facility]: [phone] to be sure your drugs can be [...] aware that I should contact my doctor. 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 Author Type: Physician Seasonal Warehouse Associate Type: Progress Notes Filed: 09/20/2023 10:42 Note Text: This note was created using [employer]. Subjective Pat Bonilla is a 32 year old male. HPI Presents with a chief complaint of difficulty urinating and flank pain. 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 He was able to urinate about 5 [...] Polysubstance abuse (HCC) meth, heroin. Oversoe 07/2019 [facility] Tobacco use disorder No current outpatient medications [...] - URINE CULTURE Juan J Nesbitt PA-C [facility] 06-12-2023 Miscellaneous Notes Left message for patient with negative results and recommendations.Priscilla Whitehead LPN Left message for pt to call back. Kenna Morrell MA ----- Message from Araceli Sim APRN.YARD WORKER sent at 06/10/2023 8:11 AM EDT ----- Please advise patient: You tested negative for COVID and Influenza. If you were tested because you were having symptoms, please monitor these symptoms and for any worrisome symptoms, please call your primary care provider or schedule a visit with [facility]. Araceli Sim APRN.CNP documented in this encounter [facility] 06-10-2023 Miscellaneous Notes Reason for Call: Vomiting. Patient was just seen yesterday and given Amoxicillin for sinus infection. The vomiting started today. Outcome: Patient has no pcp. Advised to be seen within the next 24 hours. [facility]. Reason for Disposition Vomiting a prescription [...] pain level. Worse when standing. Protocols used: [id number] documented in this encounter [facility] 06-09-2023 Note HNO ID: [id number] Author: Adolfo Zepeda MD Service: ? Author [...] INFLUENZA A/B NAAT, ROUTINE Adolfo Zepeda MD [facility] 06-09-2023 History of Presen t illness [...] Adolfo Zepeda MD documented in this encounter [facility] 03-19-2023 Hospital Discharg e instructions Patient Education [...] t able to do your daily activities 1021-2699 [employer] [address] [place] [address]. All rights reserved. This information is not intended as a substitute for professional medical care. Always follow your healthcare professional's instructions. Follow Up Care 03/18/2023 21:36:39 With:Ne Mattson [phone] Address: When:2-4 days With:DACIA CAMEJO MD Address: [address] [place] [address]- When:2-4 days [facility] 03-18-2023 Note Discharge Instructions Thank you for allowing [facility] to assist you with your healthcare needs. [...] Following Appointments Follow Up with Ne Mattson [phone] When Within 2-4 days Where: Follow Up with DACIA CAMEJO MD When Within 2-4 days Where: [address] [place] [id number]- Allergies penicillin Medications Please ask your [...] t able to do your daily activities [id number] [employer] [address] [place] [address]. All rights reserved. This information is not intended as a substitute for professional medical care. Always follow your healthcare professional's instructions. Additional Information VACCINATE! IT SAVES LIVES! Members of the community who have not yet received the COVID-19 vaccine and would like to receive it can visit one of [facility] vaccine clinics. There are many vaccine clinic locations within the [facility]. For locations and available times, please visit [email or web address] It is important to note that some COVID mobile vaccine clinics are held outdoors and may be canceled in rainy or stormy conditions. To learn more about pediatric vaccinations (ages 5-11), we invite you to visit the [employer] [facility] webpage. https://www.[employer].org/p ages/7738-Aabjp-Kgzcnzuyyuz-Freq uckfkt-Adzts-Frdxdtjsc.html To learn more about the COVID-19 vaccine, we invite you to visit the CDC website for a list of frequently asked questions. https://www.cdc.gov/coronavirus/ [email or web address] [place] [employer] Patient Portal Access Instructions: Stay connected with your healthcare team and access your personal medical information anytime with the [employer] Patient Portal. If you would like a full copy of your medical records please contact the [facility] Medical Records Department Sunday through Sunday between 8a.m. and 4:30p.m. Please follow the directions below to access the portal: 1.Access the email account you provided upon registration to the [facility].2.Look for an invitation email from [facility].3.Open the email and access the invitation link: Accept Invitation to [employer]4.Fill in the required mayer to create your account. Sign into [email or web address] with your username and password that you [...] you will allow to register on the [employer] Patient Portal for access to your information. You can also access the [employer] Patient Portal on the [employer]. Simply click on Health Records under Health Data and then click on the [employer] logo. HOW TO SAFELY DISPOSE OF PRESCRIPTION [...] Call your local pharmacy or go to [email or web address] to find one close to you.3.Make use of household items: Use cat litter or old coffee grounds to dispose medications if other options are not available. Mix your drugs with these household products, seal them in an airtight container and throw it into the garbage. Call [facility]: [phone] to be sure your drugs can be [...] aware that I should contact my doctor. Patient/Retail Sales Clerk Signature: Date/Time: Relationship to Patient: Witness Name/Signature: Date/Time: [facility] 03-18-2023 Note ORIGINAL EXAMINATION: TWO XRAY VIEWS [...] 03/18/2023 11:06:44 PM Ordering Provider: JORDYN COFFMAN [facility] 03-18-2023 Note ORIGINAL EXAMINATION: TWO XRAY VIEWS [...] 03/18/2023 11:06:44 PM Ordering Provider: JORDYN COFFMAN [facility] 06-24-2022 Hospital Discharg e instructions Swapna Mercedes [...] attachments cannot be sent through Care Everywhere.Pleurisy (Lao)documented in this encounter [facility] Work Phone: Evaluation + Plan note No data available for this section [facility] documented in this encounter [employer] Work Phone: Evaluation note* Diagnosis Influenza-like illness- Primary Influenza with other respiratory manifestations Acute non-recurrent sinusitis, unspecified location documented in this encounter [facility] Summary Purpose Family History No Family History Records FoundNo Family History Records FoundNo Family History Records FoundNo Family History Records FoundNo Family History Records FoundNo Family History Records FoundNo Family History Records Found No data available for this section Advance Directives Documents on File Type Date Recorded Patient Retail Sales Clerk Expl anation Advance Directives and Living Will Power of Supervisor Sound Technician Documents on File Type Date Recorded Patient Retail Sales Clerk Expl anation ACP-Advance Directive ACP-Power of Supervisor Sound Technician Documents on File Type Date Recorded Patient Retail Sales Clerk Expl anation ACP-Advance Directive ACP-Power of Supervisor Sound Technician Discharge Instructions * Instructions* Seng Glover MD - 12/20/2019 Can also use Advil and Tylenol Return for worse facial swelling or high fever * Attachments The following attachments cannot be sent through Care Everywhere. * Tooth and Gum Pain (Lao) * Tooth: Abscessed (Lao) * Tooth Decay (Lao) documented in this encounter* Instructions* La Dorado MD - 06/08/2020 Ice her hand 20 minutes on 20 minutes off. If your fingers began to get more tingly, then you need to remove the Simone bandage and elevate her hand. Follow-up with the primary care doctor we referred you to. * Attachments The following attachments cannot be sent through Care Everywhere. * Contusion: Hand (Lao) documented in this encounter* Instructions* Damion Kang MD - 08/02/2020 Rest and ice right elboe * Attachments The following attachments cannot be sent through Care Everywhere. * Strain or Sprain (Lao) * Elbow Sprain (Lao) documented in this encounter* Instructions* Errol Merida MD - 09/25/2020 Apply heat to the painful areas with a heating pad. Return to the emergency Department if you develop pain with flexion of your fingers or swelling worsens. * Attachments The following attachments cannot be sent through Care Everywhere. * Cellulitis (Lao) documented in this encounter Assessments Diagnosis Pain, [...] fingers, initial encounter La Dorado MD [address] [place] [address] [facility] Maria Eugenia [address] [place] [address] Scheduling [facility]ructions [facility] [address] [place] [id number] Additional Source Comments (unrecognized sect ion and content) No Status Records FoundNo Status Records FoundNo Status Records FoundNo Status Records FoundNo Status Records FoundNo Status Records FoundNo Status Records Found INFORMATION SOURCE (unrecogn ized section and content) DATE CREATED AUTHOR AUTHOR'S ORGANIZ ATION 11/23/2018 [facility] DATE CREATED AUTHOR AUTHOR'S ORGANIZ ATION 09/28/2020 [facility] DATE CREATED AUTHOR AUTHOR'S ORGANIZ ATION 07/03/2022 [facility] DATE CREATED AUTHOR AUTHOR'S ORGANIZ ATION 07/22/2022 [facility] DATE CREATED AUTHOR AUTHOR'S ORGANIZ ATION 03/29/2023 [facility] ([place]) DATE CREATED AUTHOR AUTHOR'S ORGANIZ ATION 09/22/[address] [facility] Reason for Visit (unrecogniz ed section and content) Reason Comments Hand Injury Reason Comments Hand Injury Reason Comments Arm Pain forearm/elbow Reason Comments Insect Bite pt. reports he was b it by a spider 2 days ago on palm of hand Reason Comments Shortness of Breath Pt came in from [id number] through EMS with SOB. Pt says he also has pain is in the shoulder blades. Reason Comments Cough Cough, congestion, f ever and BARRIOS x 1 week Reason Comments Vomiting Reason Comments Results Ordered Prescriptions (unrec ognized section and content) Patient Care team informatio n (unrecognized section and content) Care Team Personnel Name: DACIA CAMEJO MD Member Role: Primary Care Physician Address: Address: [address] [place] [address] Name: JORDYN COFFMAN MD Position: ED Physician Member Role: ED Physician Address: Address: [facility] [address] [place], [place] [address] Care Team Related Persons Name: FRANKIE BONILLA Name: FRANKIE BONILLA Name: FRANKIE BONILLA Care Team Personnel Name: DACIA CAMEJO MD Member Role: Primary Care Physician Address: Address: [address] [place] [address] Care Team Related Persons Name: FRANKIE BONILLA Name: FRANKIE BONILLA Name: FRANKIE BONILLA Source Comments (unrecognize d section and content) In the event this informatio n is protected by the [facility] Confidentiality of Alcohol and Drug Abuse Patient Records regulations: The Federal rules restrict any use of the information to criminally investigate or prosecute any alcohol or drug abuse patient.[facility] FoundationIn the event this information is protected by the Federal Confidentiality of Alcohol and Drug Abuse Patient Records regulations: The Federal rules restrict any use of the information to criminally investigate or prosecute any alcohol or drug abuse patient.[facility] FoundationIn the event this information is protected by the Federal Confidentiality of Alcohol and Drug Abuse Patient Records regulations: The Federal rules restrict any use of the information to criminally investigate or prosecute any alcohol or drug abuse patient.[facility] FOR RECORDS PERTAINING TO PATIENTS WHO ARE [...] BE BASED ON THE PRIMARY CLINICAL RECORDS. [facility] [employer] [facility]. provides no warranty or guarantee of the accuracy or completeness of information in this document.
--- NOTE | 2023-10-24 17:57 | NURSING ---
ACCEPTED AT [facility] [phone]
--- NOTE | 2023-10-24 17:57 | NURSING ---
FAXED PINK SLIP TO [facility]
--- NOTE | 2023-10-24 18:11 | NURSING ---
CALLED [facility]ONATH[facility], TALKED TO ABEL. ETA IS 0800 TOMORROW MORNING
[2023-10-24 18:36] VITALS: BP 147/102; PULSE 109; RESP 18; TEMP 36.6; O2SAT 96
--- NOTE | 2023-10-24 18:41 | ED.RN ---
called pt's significant other, Nicole per pt's request. no answer. patient also requested to have mother added to contacts.
[2023-10-25] VITALS (7 sets, daily range): BP systolic 134–142; BP diastolic 78–89; PULSE 64–89; RESP 16–18; TEMP 36.1–36.9; O2SAT 97–99
--- NOTE | 2023-10-25 03:42 | ED.RN ---
attempt to call report to [facility] and they stated to call when the pt is leaving the department because the nurse who will be caring for him is not there presently.
--- NOTE | 2023-10-25 07:23 | ED.RN ---
[facility] CALLED, NEW ETA 1030 AM. REQUESTED DISPATCH TO [facility].
--- NOTE | 2023-10-25 08:03 | ED.RN ---
0720-physicians calls states they were having vehicle troubles and had to turn around. pt. arrives back to room 4. training development specialist calls physicians to see their updated eta
--- NOTE | 2023-10-25 08:08 | ED.RN ---
pt offered breakfast, pt states i dont want your nasty food pt states i want a psychiatrist to see me now.
--- NOTE | 2023-10-25 08:59 | ED.RN ---
CALLED [facility] TO MAKE THEM AWARE OF PTS TRANSPORTATION ISSUES AND NEW ARRIVAL TIME.
--- NOTE | 2023-10-25 09:43 | ED.RN ---
[facility]ED [facility] TO SEE IF THEY HAD AN UPDATE ON [facility]. THEY SAID THEY DID NOT HAVE SUCCESS WITH THAT, BUT PT IS ASSIGNED TO A CREW THAT SHOULD BE HERE BY [phone]
== END 2023-10-25 11:16 ==
PROVIDERS: Emergency Provider Emergency Medicine; PCP Family Medicine; Visit Provider Emergency Medicine
DX: F32.A Depression, unspecified (principal); J44.9 Chronic obstructive pulmonary disease, unspecified; R45.851 Suicidal ideations; Z91.51 Personal history of suicidal behavior
CPT/HCPCS: 36415; 80048; 80307; 80320; 85025; 99284; G0480

== ENCOUNTER → 2024-05-21 | Outpatient (CLI) | payer MEDICAID, SELFPAY ==
[2024-05-21 12:41] LABS: Erythrocyte Sedimentation Rate 3 mm/hr (0-20)
[2024-05-21 12:45] LABS: Hematocrit 47.9 % (40-54); Hemoglobin 16.3 g/dL (13.0-16.5); Mean Corpuscular Hgb 27.8 pg (27.0-32.0); Mean Corpuscular Volume 81.6 fL (80-94); Mean Platelet Vol. 10.1 fl (6.2-12.0); Platelet Count 233 K/mm3 (150-450); RBC Distribution Width CV 13.2 % (11.6-14.6); RBC Distribution Width SD 39.3 fl (35.1-43.9); Red Blood Count 5.87 M/mm3 (4.6-6.2); White Blood Count 4.6 K/mm3 (4.4-11.0)
[2024-05-21 13:59] LABS: ALB/GLOB Ratio 1.2 RATIO (0.9-2.4); AST(SGOT) 45 U/L (15-37); Alanine Aminotransfer ALT/SGPT 106 U/L (16-61); Alkaline Phosphatase 83 U/L (45-117); Anion Gap 4 (5-15); BUN 13 mg/dL (7-18); BUN/Creat Ratio 12.9 RATIO (10-20); CRP < 2.90 mg/L (0.0-3.0); Calcium,Total 9.8 mg/dL (8.5-10.1); Chloride 105 mmol/L (98-107); Creatinine, Serum 1.01 mg/dL (0.70-1.30); EST Glomerular Filtration Rate 90 mL/min (>60); Est Glom Filt Rate - Afr Amer 109 mL/min (>60); Globulin 3.2 g/dL (2.2-4.2); Glucose 109 mg/dL (74-106); Potassium 3.9 mmol/L (3.5-5.1); Protein, Total 7.2 g/dL (6.4-8.2); Sodium Level 136 mmol/L (136-145)
== END | disposition home or self-care (01) ==
LOC: VSLAB 11:23
PROVIDERS: PCP Nurse Practitioner Family; Visit Provider Nurse Practitioner Family
DX: K21.9 Gastro-esophageal reflux disease without esophagitis (principal); J44.9 Chronic obstructive pulmonary disease, unspecified; R07.89 Other chest pain
CPT/HCPCS: 36415; 80053; 84443; 85027; 85652; 86140

== ENCOUNTER 2024-07-22 09:51 | Day surgery (SDC) | payer MEDICAID, SELFPAY ==
[2024-07-22] VITALS (7 sets, daily range): BP systolic 110–130; BP diastolic 75–95; PULSE 67–83; RESP 12–16; TEMP 36.3–36.9; O2SAT 96–99; BMI 29.0
--- NOTE | 2024-07-22 10:27 | PCM.PRE.AN2 ---
ASA Classification* ASA Classification ASA Classification: 2 Assessment & Plan Anesthesia* Anesthesia Assessment Anesthesia Assessment: Discussed sedation and/or anesthesia options, risks, benefits, and alternatives with patient/parents/legal guardian/POA. Questions invited. The patient/parents/legal guardian/POA seems to understand and agrees to proceed with anesthesia plan. Reviewed the physical assessment, medical history, allergy history and patient home medications list prior to surgery/procedure/anesthetic and documented any changes. Performed airway and anesthesia risk assessments. Anesthesia Type Anesthesia Type: MAC History Source History Obtained from:: Patient and Chart Anesthesia Focused Assessment* Temperature: 98.4 F Pulse Rate: 83 Blood Pressure: 130/95 Respiratory Rate: 16 Pulse Ox: 99 Oxygen Delivery Method: Room Air Airway Assessment Mouth opens: >3 cm Mallampati Score: I Teeth Condition: Chipped/Broken (Patient has multiple broken teeth.) and Missing (Patient has multiple missing teeth.) Neck Range of motion (ROM): Full ROM Focused Labs Anesthesia Preop lab: CBC WBC 4.6 K/mm3 (4.4-11.0) 05/21/24 11:24 RBC 5.87 M/mm3 (4.6-6.2) 05/21/24 11:24 Hgb 16.3 g/dL (13.0-16.5) 05/21/24 11:24 Hct 47.9 % (40-54) 05/21/24 11:24 Plt Count 233 K/mm3 (150-450) 05/21/24 11:24 CHEMISTRY Potassium 3.9 mmol/L (3.5-5.1) 05/21/24 11:24 Sodium 136 mmol/L (136-145) 05/21/24 11:24 BUN 13 mg/dL (7-18) 05/21/24 11:24 Creatinine 1.01 mg/dL (0.70-1.30) 05/21/24 11:24 Glucose 109 mg/dL (74-106) H 05/21/24 11:24 POC Glucose 84 mg/dL (70-110) 06/04/15 14:37 TSH 1.000 uIU/mL (0.358-3.740) 05/21/24 11:24 COAG Pre-Assessment Diagnosis/Proposed Procedure Planned Operative Procedure(s): EGD Anesthesia History Anesthesia History - last turner: Anesthesia History - last turner Hx Hospitalization No 07/18/24 12:38 Any Problems With Anesthesia No 07/18/24 12:38 Cholinesterase deficiency No 07/18/24 12:38 You/Your Family Experience No 07/18/24 12:38 fever (hyperthermia) with Relationship Recent Exposure to Contagious No 07/22/24 10:12 Disease Does patient have nerve No 07/18/24 12:38 stimulator Patient instructed to have device shut off --Does patient have Pacemaker or ICD? When Was Last Pacemaker Check QUESTION #4 FULL TEXT: You/Your Family Experience fever (hyperthermia) with Anesthesia Last Oral Intake Last Oral intake: Last Oral Intake NPO since 00:00 07/22/24 10:12 Meds taken in AM with sips of water? Meds patient instructed to take am of surgery PONV PONV - last turner: PONV - last turner Female No 07/18/24 12:38 HX of Motion Sickness No 07/18/24 12:38 HX of N/V After Surgery No 07/18/24 12:38 Non-Smoker No 07/18/24 12:38 Duration of Surgery greater No 07/18/24 12:38 than 60 minutes Number of Risk Factors PONV Score Height & Weight Height & Weight: Anesthesia: Height & Weight Height 6 ft 07/22/24 10:12 Weight: 97.069 kg 07/22/24 10:12 Body Mass Index (BMI) 29.0 07/22/24 10:12 Respiratory Assessment Respiratory Assessment - last turner: Respiratory Tract Infection Hx - last turner Hx Respiratory Tract Infection No 07/18/24 12:38 STOP Sleep Apnea STOP Sleep Apnea - last turner: STOP Sleep Apnea - last turner Hx Hypertension No 07/18/24 12:38 Hx Sleep Apnea No 07/18/24 12:38 CPAP No 05/19/15 14:13 BIPAP No 05/19/15 14:13 Do you snore loudly (louder No 07/18/24 12:38 than talking or can be heard Do you often feel tired/ No 07/18/24 12:38 fatigued/ sleepy during daytime? Has anyone observed you stop No 07/18/24 12:38 breathing during sleep? STOP Results Negative 07/18/24 12:38 QUESTION #5 FULL TEXT : Do you snore loudly (louder than talking or can be heard through closed doors)? Tobacco Use History Tobacco Use History - last turner: Tobacco Use History - last turner Tobacco Use Smoking Status Current every day smoker 07/18/24 12:38 Hx Tobacco Use Yes 07/18/24 12:38 Years Smoking Packs Smoked per Day 0.5 07/18/24 12:38 Smoking Cessation Date was within the last 15 years Hx Smoking Cessation Date Hx Smoking Cessation No 07/18/24 12:38 Counseling Any additional information?: Yes Smoking Status: Current every day smoker (Patient did not smoke today.) Hematologic Medial History Hematologic Hx - last turner: Hematologic Medical Hx - clearance representative Hx of Blood Transfusion No 07/18/24 12:38 Hx of Transfusion in last 3 No 07/18/24 12:38 Months Date of Last Transfusion (if within last 3 months) Ever experience any problems No 07/18/24 12:38 with transfusion(s)? Specify any problems Hx of Preganancy in last 3 N/A 07/18/24 12:38 Months Nurse Filling Out Transfusion NBUCHER 07/18/24 12:38 & Questions: Date: 07/18/24 07/18/24 12:38 Time: 12:39 07/18/24 12:38 Patient unable to answer at this time (ie. confused, unrespo /Reproduction History /Reproductive History - last turner: /Reproductive Hx- last turner Hx Now No 07/18/24 12:38 Gestational Age (in weeks): EDC: Hx Hx Para Hx Section SAB No 07/18/24 12:38 [facility] Medical History Substance abuse Bipolar disorder Smoker Asthma Leg cramps Acid reflux Heart disease COPD (chronic obstructive pulmonary disease) Home Medications ?Medication ?Instructions ?Recorded ?Last Taken ?Type aspirin 81 mg tablet,delayed 81 mg PO QDAY 06/10/24 07/15/24 History release hydroxyzine HCl 50 mg tablet 50 mg PO BID 06/10/24 Unknown History quetiapine 50 mg tablet,extended 50 mg PO QHS 06/10/24 Unknown History release 24 hr Allergy/AdvReac Type Severity Reaction Status Date / Time Penicillins Allergy Hives Verified 07/22/24 10:11 ibuprofen AdvReac Nausea Verified 07/22/24 10:11 Surgical History Hx of hand surgery Social History Smoking Status: Current every day smoker (Patient did not smoke today.) tobacco type: cigarettes alcohol intake: current substance use type: heroin and methamphetamine Review of Systems (Anesthesia) ROS Narrative System reviewed and no additional complaints, except as documented.
--- NOTE | 2024-07-22 10:59 | HP.PCM_ITS ---
History and Physical Date of Admission: 07/22/24 Intake Vital Signs 10/24/2412:32 06/10/2414:03 Height 6 ft 6 ft Weight: 207 lb 8 oz BMI 28.1 BP 133/86 H Blood Pressure Location Rt brachial Position Sitting Respiration 18 Pulse 76 Pulse Source Monitor Temp 98.5 F Temp Source Temporal Pulse Oximetry (%) 97 Oxygen Delivery Method room air Intake Visit Reasons: UNCONTROLLED REFLUX Chief Complaint: uncontrolled reflux Accompanied by: Mother Is patient in pain?: No Allergies Penicillins Allergy (Verified 06/10/24 14:04) Hivesibuprofen Adverse Reaction (Verified 06/10/24 14:04) Nausea Medications ?Medication ?Instructions ?Recorded ?Confirmed ?Type aspirin 81 mg tablet,delayed 81 mg PO QDAY 06/10/24 06/10/24 History release hydroxyzine HCl 50 mg tablet 50 mg PO BID 06/10/24 06/10/24 History quetiapine 50 mg tablet,extended 50 mg PO QHS 06/10/24 06/10/24 History release 24 hr PFSH Medical History (Updated 06/10/24 @ 14:03 by Christiane Burrows LPN) Acid reflux Heart disease COPD (chronic obstructive pulmonary disease) Surgical History (Updated 06/10/24 @ 14:03 by Christiane Burrows LPN) Hx of hand surgery Social History (Updated 06/10/24 @ 14:03 by Christiane Burrows LPN) Smoking Status: Current every day smoker alcohol intake: current substance use type: heroin and methamphetamine HPI HPI HPI: Patient is a 33-year-old male here for uncontrolled GERD. He has been on a PPI for over a year which has not improved it. He reports that his burning in his chest and he wakes up feeling acid in his mouth. He denies nausea or vomiting. Denies fevers or chills or diarrhea. ROS General General: No weight change, appetite, fatigue, colon cancer, breast cancer or weakness HEENT HEENT: No difficulty swallowing, eye injury, eye surgery, swollen glands or hoarseness Endo Endocrine: No thyroid disease, diabetes mellitus, thyroid cancer, Hair loss, heat intolerance or cold intolerance Skin Skin: No rash or changing moles Musc Musculoskeletal: No back problems, arthritis, rheumatoid arthritis, gout or joint pain Cardio Cardiovascular: Yes heart disease; No murmur, pacemaker, atrial fibrillation, high blood pressure, heart attack, heart stent, palpitations, shortness of breat with exertion or chest pain Psych Psychiatric: Yes depression and anxiety; No hearing voices Resp Respiratory: No shortness of breath, Yes sleep apnea, No cough, Yes COPD, No a sthma, No emphysema and No wheezing Gastro Gastrointestinal: No abdominal pain, No nausea or vomiting, No diarrhea, No constipation, No blood in stool, Yes acid reflux, No hemorrhoids, Yes ulcers, No gallbladder problem and No black,tarry stools Steve Hematologic: Yes blood thinners, No blood disorders, No bleeding, No anemia and No blood clots Additional Details: 81mg aspirin Neuro Neurologic: No numbness, No tingling and No weakness Exam Const General: cooperative Orientation: alert and oriented x3 HENMT Head: normal to inspection Neck Neck: normal visual inspection and full ROM Chest Chest palpation & inspection: normal inspection of the chest Resp Effort & Inspection: normal respiratory effort Auscultation: clear to auscultation bilaterally Cardio Rate: regular rate Rhythm: regular rhythm GI Inspection: non-distended Palpation: soft and nontender Skin General: no rashes or lesions noted Neuro General: patient alert and patient oriented x3 Extrem General: full ROM Psych Appearance: grossly normal Mental Status: mental status grossly normal Assessment and Plan Assessment and Plan (1) Acid reflux: Status: Acute Plan: Patient has severe GERD and he has never had an EGD. He was sent here for evaluation. I have briefly discussed hiatal hernia repair and fundoplication with him. First I will perform an EGD to evaluate. I explained endoscopy in detail to the patient. I explained the risks including but not limited to stroke or heart attack with anesthesia, perforation of the GI tract, bleeding, infection. I explained that any of these could necessitate further emergency surgery. The patient understands and all questions were answered sufficiently. The patient wishes to proceed with procedure. Sancho Rodriguez MD Pager: [facility] [address] [place] [address], [address] [place] [address] Office: I have examined the patient and the H&P has been reviewed. There are no clinical changes since date of exam.
--- NOTE | 2024-07-22 11:00 | EGD_PTH ---
PATIENT: PAT BONILLA LOC: EN U#:[id number] AGE/SX: 33/M ROOM: RE07/22/[address]: Dr. Sancho Rodriguez MD : 1990 BED: DIS: 07/22/2024 SPEC #: [id number] RECD: 07/22/24 13:41 STATUS: MYKEL REApril #: [id number] JACKI: 07/22/24 11:[address]: Sancho Rodriguez DEPT: SURGICAL PATHOLOGY RECD BY: Landry Krishnan ENTERED: 07/23/24 07:43 SP TYPE: EGD BIOPSY OT DR: Jennifer Mathur, [facility], PET CARE ATTENDANT-C Tissues: Gastric mucous membrane Procedures: Special Stain Group I Surgery Specimen Level IV Alcian Blue/PAS (control) HEADER OPERATION: EGD, biopsy PRE-OP DIAGNOSIS: Acid reflux TISSUE SUBMITTED: Gastroesophageal junction biopsy MICROSCOPIC DIAGNOSIS Gastroesophageal junction, biopsy: No pathologic change. No evidence of goblet cell metaplasia. See comment. AM. 07/24/2024 COMMENT Alcian blue/PAS stain with matched control is used in the evaluation of the specimen. MICROSCOPIC DESCRIPTION Slides are reviewed. GROSS DESCRIPTION Received in fixative is one container labeled with the patient's name and designated GE junction biopsy. The specimen consists of multiple irregular fragments of light caceres soft tissue that in aggregate measure 0.6 x 0.2 x 0.1 cm. The specimen is totally submitted in one cassette. 07/23/2024 TC: 5 CPT:16512,33768
--- NOTE | 2024-07-22 11:14 | OP.CCLET_ITS ---
07/22/2024 Jennifer Mathur [facility], Medical Billing Manager-c Re : Upper GI endoscopy procedure for Amado Whiteheadr Kevan This procedure was performed on Monday, July 22, 2024. My impressions and recommendations are as follows: Impressions : - Mildly severe reflux esophagitis. Biopsied. - Normal stomach. - Normal examined duodenum. Recommendations : - Discharge patient to home. - Resume previous diet. - Continue present medications. - Await pathology results. - Return to my office in 2 weeks. My findings are described in the full procedure note, which is enclosed. If I can be of further assistance, please feel free to contact me at Doctor phone number(s): , Work: . Sincerely, Sancho Rodriguez MD 07/22/2024 11:13:26 AM This report has been signed electronically.
--- NOTE | 2024-07-22 11:14 | OP.EGD_ITS ---
Patient Name: Amado Marinelli Procedure Date: 07/22/2024 11:00 AM Date of : 1990 Age: 33 Procedure: Upper GI endoscopy Indications: Esophageal reflux Providers: Sancho Rodriguez MD Referring MD: Jennifer Mathur [facility], Salesperson [employer] Medicines: Propofol per Anesthesia Patient Profile: This is a 33 year old male. Refer to note in patient chart for documentation of history and physical. Complications: No immediate complications. Estimated blood loss: Minimal. Procedure: Pre-Anesthesia Assessment: - Prior to the procedure, a History and Physical was performed, and patient medications and allergies were reviewed. The patient's tolerance of previous anesthesia was also reviewed. The risks and benefits of the procedure and the sedation options and risks were discussed with the patient. All questions were answered, and informed consent was obtained. Prior Anticoagulants: The patient has taken no anticoagulant or antiplatelet agents. After reviewing the risks and benefits, the patient was deemed in satisfactory condition to undergo the procedure. After obtaining informed consent, the endoscope was passed under direct vision. Throughout the procedure, the patient's blood pressure, pulse, and oxygen saturations were monitored continuously. The gastroscope was introduced through the mouth, and advanced to the second part of duodenum. The upper GI endoscopy was accomplished without difficulty. The patient tolerated the procedure well. Scope In: 11:08:03 AM Scope Out: 11:10:34 AM Total Procedure Duration Time 0 hours 2 minutes 31 seconds Findings: Mildly severe esophagitis was found in the lower third of the esophagus. Biopsies were taken with a cold forceps for histology. The stomach was normal. The examined duodenum was normal. Impression: - Mildly severe reflux esophagitis. Biopsied. - Normal stomach. - Normal examined duodenum. Recommendation: - Discharge patient to home. - Resume previous diet. - Continue present medications. - Await pathology results. - Return to my office in 2 weeks. Procedure Code(s): --- Professional --- 20512, Esophagogastroduodenoscopy, flexible, transoral; with biopsy, single or multiple Diagnosis Code(s): --- Professional --- K21.00, Gastro-esophageal reflux disease with esophagitis, without bleeding CPT copyright 2021 [employer]. All rights reserved. The codes documented in this report are preliminary and upon medical coder review may be revised to meet current compliance requirements. Sancho Rodriguez MD 07/22/2024 11:13:26 AM This report has been signed electronically. Number of Addenda: 0 Note Initiated On: 07/22/2024 11:00 AM
--- NOTE | 2024-07-22 11:23 | PCM.POST.ANE ---
Anesthesia: Postop Eval I Current Vital Signs Temperature: 97.6 F Pulse Rate: 67 Blood Pressure: 110/78 Respiratory Rate: 12 Pulse Ox: 97 Oxygen Delivery Method: Room Air Assessment Airway patent: Yes Spontaneous unlabored respirations: Yes Mental status: Asleep nausea: No Vomiting: No Anesthesia Complication: No Fluid Hydration Crystalloid volume administer (ml): 30 Total IV fluid infused: 30 Progress Note Anesthesia document: Postop Eval 1 completed: Yes
--- NOTE | 2024-07-22 14:01 | PCM.POSTANE2 ---
Anesthesia Postop Eval I Sum Postop Eval Completion status Anesthesia document: Postop Eval 1 completed: Yes Anesthesia Postop Eval I Summary Anesthesia Postop Eval I Summary: Anesthesia Postop Eval I: Assessment Summary Airway patent Yes 07/22/24 11:23 [email or web address] Spontaneous unlabored Yes 07/22/24 11:23 [email or web address] respirations Mental status Asleep 07/22/24 11:23 [email or web address] nausea No 07/22/24 11:23 [email or web address] Vomiting No 07/22/24 11:23 [email or web address] Anesthesia Postop Eval I: Fluid Summary Crystalloid volume administer 30 07/22/24 11:23 [email or web address] (ml) Colloids volume administered ( ml) Blood Product volume administered (ml) Total IV fluid infused 30 07/22/24 11:24 [email or web address] Anesthesia Postop Eval I: Summary Notes Anesthesia Complication No 07/22/24 11:23 [email or web address] Anesthesia Complication Comment: Post-operative progress note Anesthesia: Postop Eval II Evaluation Mental status: Awake and Calm Pain Level: 0 nausea: No Vomiting: No Complications Anesthesia Complication: No
== END 2024-07-22 11:50 | disposition home or self-care (01) ==
LOC: EN 09:53 → AC 09:56
PROVIDERS: PCP Nurse Practitioner Family; Referring Provider Nurse Practitioner Family; Visit Provider Surgery
PROC: 0DJ08ZZ Inspection of Upper Intestinal Tract, Via Natural or Artificial Opening Endoscopic (ICD-10-PCS; CPT 43235; principal; 2024-07-22 10:55)
DX: K21.00 Gastro-esophageal reflux disease with esophagitis, without bleeding (principal); F17.210 Nicotine dependence, cigarettes, uncomplicated; Z79.899 Other long term (current) drug therapy
CPT/HCPCS: 43239; 88305; 88312; A4216; J2405

== ENCOUNTER 2024-08-15 09:12 | Day surgery (SDC) | payer MEDICAID, SELFPAY ==
[2024-08-15 09:30] VITALS: BP 134/76; PULSE 84; RESP 16; TEMP 36.3; O2SAT 100
[2024-08-15] MEDS: Lidocaine Jelly 2% 20 ML Syringe (URO-JET) 1 APPLIC (09:35)
== END 2024-08-15 10:02 | disposition home or self-care (01) ==
PROVIDERS: PCP Nurse Practitioner Family; Referring Provider Surgery; Visit Provider Surgery
PROC: F00ZJWZ Instrumental Swallowing and Oral Function Assessment using Swallowing Equipment (ICD-10-PCS; CPT 43235; principal; 2024-08-15 09:25)
DX: K21.9 Gastro-esophageal reflux disease without esophagitis (principal)
CPT/HCPCS: 91010

== ENCOUNTER 2024-09-15 05:57 | Day surgery (SDC) | payer MEDICAID, SELFPAY ==
--- NOTE | 2024-09-02 12:49 | EKG12_ITS ---
Test Reason : PREOP Blood Pressure : */* mmHG Vent. Rate : 70 BPM Atrial Rate : 70 BPM P-R Int : 152 ms QRS Dur : 102 ms QT Int : 404 ms P-R-T Axes : 66 12 57 degrees QTcB Int : 436 ms Normal sinus rhythm Normal ECG Confirmed by HERIBERTO EASTMAN, SUNDEEP ([id number]), make up editor ZITA GARCIA ([id number]) on 09/04/2024 2:20:04 PM Referred By: Sancho Rodriguez Confirmed By: SUNDEEP LOUIS MD
--- NOTE | 2024-09-04 13:12 | PAT.ANESEVAL ---
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 When Was Last Pacemaker Check QUESTION #4 FULL TEXT: You/Your Family Experience fever (hyperthermia) with Anesthesia Last Oral Intake Last Oral intake: Last Oral Intake NPO since Meds taken in AM with sips of water? Meds patient instructed to take am of surgery PONV PONV - flavor room worker: PONV - flavor room worker Female No 08/29/24 14:50 HX of Motion Sickness No 08/29/24 14:50 HX of N/V After Surgery No 08/29/24 14:50 Non-Smoker No 08/29/24 14:50 Duration of Surgery greater Yes 08/29/24 14:50 than 60 minutes Number of Risk Factors 1 08/29/24 14:50 PONV Score Low Risk 08/29/24 14:50 Height & Weight Height & Weight: Anesthesia: Height & Weight Height 6 ft 08/05/24 13:36 Respiratory Assessment Respiratory Assessment - flavor room worker: Respiratory Tract Infection Hx - flavor room worker Hx Respiratory Tract Infection No 08/29/24 14:50 STOP Sleep Apnea STOP Sleep Apnea - flavor room worker: STOP Sleep Apnea - flavor room worker Hx Hypertension No 08/29/24 14:50 Hx Sleep Apnea No 08/29/24 14:50 CPAP No 08/29/24 14:50 BIPAP No 08/29/24 14:50 Do you snore loudly (louder No 08/29/24 14:50 than talking or can be heard Do you often feel tired/ No 08/29/24 14:50 fatigued/ sleepy during daytime? Has anyone observed you stop No 08/29/24 14:50 breathing during sleep? STOP Results Negative 08/29/24 14:50 QUESTION #5 FULL TEXT : Do you snore loudly (louder than talking or can be heard through closed doors)? Tobacco Use History Tobacco Use History - flavor room worker: Tobacco Use History - flavor room worker Tobacco Use Smoking Status Current every day smoker 08/29/24 14:50 Hx Tobacco Use Yes 08/29/24 14:50 Years Smoking Packs Smoked per Day Smoking Cessation Date was within the last 15 years Hx Smoking Cessation Date Hx Smoking Cessation No 08/29/24 14:50 Counseling Hematologic Medial History Hematologic Hx - flavor room worker: Hematologic Medical Hx - rail manager Hx of Blood Transfusion No 08/29/24 14:50 Hx of Transfusion in last 3 No 08/29/24 14:50 Months Date of Last Transfusion (if within last 3 months) Ever experience any problems No 08/29/24 14:50 with transfusion(s)? Specify any problems Hx of Preganancy in last 3 N/A 08/29/24 14:50 Months Nurse Filling Out Transfusion MGRIFFITH 08/29/24 14:50 & Questions: Date: 08/29/24 08/29/24 14:50 Time: 14:51 08/29/24 14:50 Patient unable to answer at this time (ie. confused, unrespo /Reproduction History /Reproductive History - flavor room worker: /Reproductive Hx- flavor room worker Hx Now Gestational Age (in weeks): EDC: Hx Hx Para Hx Section SAB No 08/29/24 14:50 PFSH Medical History (Updated 08/29/24 @ 14:57 by Jaja Forrest) Gastric reflux Substance abuse Bipolar disorder Smoker Asthma Leg cramps Acid reflux Heart disease COPD (chronic obstructive pulmonary disease) Home Medications ?Medication ?Instructions ?Recorded ?Last Taken ?Type aspirin 81 mg tablet,delayed 81 mg PO QDAY 06/10/24 08/26/24 History release hydroxyzine HCl 50 mg tablet 50 mg PO BID 06/10/24 Unknown History quetiapine 50 mg tablet,extended 50 mg PO QHS 06/10/24 Unknown History release 24 hr omeprazole 40 mg capsule,delayed 40 mg PO BID 08/05/24 Unknown History release Allergy/AdvReac Type Severity Reaction Status Date / Time Penicillins Allergy Hives Verified 08/29/24 14:47 ibuprofen AdvReac Nausea Verified 08/29/24 14:47 Surgical History (Updated 08/29/24 @ 14:49 by Jaja Forrest) History of esophagogastroduodenoscopy (EGD) Hx of hand surgery Social History Smoking Status: Current every day smoker tobacco type: cigarettes alcohol intake: current substance use type: heroin and methamphetamine Audit: Pertinent Findings Pertinent Findings EKG Perinent findings: September 02, 2024. Normal sinus rhythm. Compared to May 29, 2023. Nonspecific T wave abnormalities no longer seen. Recommendation Anesthesia Recommendation Anesthesia recommendation: OPTIMIZED for anesthesia
[2024-09-15] VITALS (12 sets, daily range): BP systolic 111–133; BP diastolic 76–89; PULSE 72–90; RESP 16–18; TEMP 36.4–36.9; O2SAT 93–99; BMI 29.5
[2024-09-15] MEDS: 0.9% Normal Saline (1000mL) 1,000 ML 15 ML IV (06:29)
--- NOTE | 2024-09-15 06:50 | PRE.ANES_ITS ---
ASA Classification* ASA Classification ASA Classification: 2 Assessment & Plan Anesthesia* Anesthesia Assessment Anesthesia Assessment: Discussed sedation and/or anesthesia options, risks, benefits, and alternatives with patient/parents/legal guardian/POA. Questions invited. The patient/parents/legal guardian/POA seems to understand and agrees to proceed with anesthesia plan. Reviewed the physical assessment, medical history, allergy history and patient home medications list prior to surgery/procedure/anesthetic and documented any changes. Performed airway and anesthesia risk assessments. Anesthesia Type Anesthesia Type: General Anesthesia Focused Assessment* Temperature: 98.3 F Pulse Rate: 72 Blood Pressure: 125/89 Respiratory Rate: 18 Pulse Ox: 97 Airway Assessment Mouth opens: >3 cm Mallampati Score: II Focused Labs Anesthesia Preop lab: CBC WBC 5.7 K/mm3 (4.4-11.0) 09/02/24 13:11 RBC 5.91 M/mm3 (4.6-6.2) 09/02/24 13:11 Hgb 16.9 g/dL (13.0-16.5) H 09/02/24 13:11 Hct 49.4 % (40-54) 09/02/24 13:11 Plt Count 221 K/mm3 (150-450) 09/02/24 13:11 CHEMISTRY Potassium 3.9 mmol/L (3.5-5.1) 05/21/24 11:24 Sodium 136 mmol/L (136-145) 05/21/24 11:24 BUN 13 mg/dL (7-18) 05/21/24 11:24 Creatinine 1.01 mg/dL (0.70-1.30) 05/21/24 11:24 Glucose 109 mg/dL (74-106) H 05/21/24 11:24 POC Glucose 84 mg/dL (70-110) 06/04/15 14:37 TSH 1.000 uIU/mL (0.358-3.740) 05/21/24 11:24 COAG Pre-Assessment Diagnosis/Proposed Procedure Planned Operative Procedure(s): Robotic Laparoscopic, Maxwell Fundoplication Anesthesia History 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 When Was Last Pacemaker Check QUESTION #4 FULL TEXT: You/Your Family Experience fever (hyperthermia) with Anesthesia Last Oral Intake Last Oral intake: Last Oral Intake NPO since 19:00 09/15/24 06:29 Meds taken in AM with sips of No 09/15/24 06:29 water? Meds patient instructed to take am of surgery PONV PONV - yard demurrage clerk: PONV - yard demurrage clerk Female No 08/29/24 14:50 HX of Motion Sickness No 08/29/24 14:50 HX of N/V After Surgery No 08/29/24 14:50 Non-Smoker No 08/29/24 14:50 Duration of Surgery greater Yes 08/29/24 14:50 than 60 minutes Number of Risk Factors 1 08/29/24 14:50 PONV Score Low Risk 08/29/24 14:50 Height & Weight Height & Weight: Anesthesia: Height & Weight Height 6 ft 09/15/24 06:29 Weight: 98.6 kg 09/15/24 06:29 Body Mass Index (BMI) 29.5 09/15/24 06:29 Respiratory Assessment Respiratory Assessment - yard demurrage clerk: Respiratory Tract Infection Hx - yard demurrage clerk Hx Respiratory Tract Infection No 08/29/24 14:50 STOP Sleep Apnea STOP Sleep Apnea - yard demurrage clerk: STOP Sleep Apnea - yard demurrage clerk Hx Hypertension No 08/29/24 14:50 Hx Sleep Apnea No 08/29/24 14:50 CPAP No 08/29/24 14:50 BIPAP No 08/29/24 14:50 Do you snore loudly (louder No 08/29/24 14:50 than talking or can be heard Do you often feel tired/ No 08/29/24 14:50 fatigued/ sleepy during daytime? Has anyone observed you stop No 08/29/24 14:50 breathing during sleep? STOP Results Negative 08/29/24 14:50 QUESTION #5 FULL TEXT : Do you snore loudly (louder than talking or can be heard through closed doors)? 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 Specify any problems Hx of Preganancy in last 3 N/A 08/29/24 14:50 Months Nurse Filling Out Transfusion MGRIFFITH 08/29/24 14:50 & Questions: Date: 08/29/24 08/29/24 14:50 Time: 14:51 08/29/24 14:50 Patient unable to answer at this time (ie. 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: /Reproductive Hx- yard demurrage clerk Hx Now Gestational Age (in weeks): EDC: Hx Hx Para Hx Section SAB No 08/29/24 14:50 Active Medications Active Medications: Current Medications Generic Name Dose Route Start Last Admin Trade Name Freq PRN Reason Stop Dose Admin Clindamycin Phosphate 900 mg in 50 mls @ 75 mls/hr 09/15/24 07:30 Cleocin IV 09/15/24 08:09 PREOP ONE Sodium Chloride 1,000 mls @ 15 mls/hr 09/15/24 06:05 09/15/24 06:29 IV 09/20/24 19:24 15 mls/hr .Q48H AB Administration Protocol PFSH Medical History Gastric reflux Substance abuse Bipolar disorder Smoker Asthma Leg cramps Acid reflux Heart disease COPD (chronic obstructive pulmonary disease) Home Medications ?Medication ?Instructions ?Recorded ?Last Taken ?Type aspirin 81 mg tablet,delayed 81 mg PO QDAY 06/10/24 09/08/24 History release hydroxyzine HCl 50 mg tablet 50 mg PO BID 06/10/24 09/12/24 History quetiapine 50 mg tablet,extended 50 mg PO QHS 06/10/24 09/13/24 History release 24 hr omeprazole 40 mg capsule,delayed 40 mg PO BID 08/05/24 09/13/24 History release Allergy/AdvReac Type Severity Reaction Status Date / Time Penicillins Allergy Hives Verified 09/15/24 06:26 ibuprofen AdvReac Nausea Verified 09/15/24 06:26 Surgical History History of esophagogastroduodenoscopy (EGD) Hx of hand surgery Social History Smoking Status: Current every day smoker tobacco type: cigarettes alcohol intake: current substance use type: heroin and methamphetamine Review of Systems (Anesthesia) ROS Narrative System reviewed and no additional complaints, except as documented.
--- NOTE | 2024-09-15 07:02 | PCM.HP.BLA ---
History and Physical Date of Admission: 09/15/24 Intake Vital Signs 07/22/2410:12 08/05/2413:36 Height 6 ft 6 ft Weight: 214 lb BMI 29.0 BP 124/82 H Blood Pressure Location Rt brachial Position Sitting Respiration 16 Intake Visit Reasons: S/P EGD 07-22 Chief Complaint: uncontrolled reflux f/u EGD Commercial Driver'S License Driver Required: No Is patient in pain?: No Allergies Penicillins Allergy (Verified 08/29/24 14:47) Hivesibuprofen Adverse Reaction (Verified 08/29/24 14:47) Nausea Medications ?Medication ?Instructions ?Recorded ?Confirmed ?Type aspirin 81 mg tablet,delayed 81 mg PO QDAY 06/10/24 08/29/24 History release hydroxyzine HCl 50 mg tablet 50 mg PO BID 06/10/24 08/29/24 History quetiapine 50 mg tablet,extended 50 mg PO QHS 06/10/24 08/29/24 History release 24 hr omeprazole 40 mg capsule,delayed 40 mg PO BID 08/05/24 08/29/24 History release Have you fallen in the past year?: No PFSH Medical History (Updated 08/29/24 @ 14:57 by Jaja Forrest) Gastric reflux Substance abuse Bipolar disorder Smoker Asthma Leg cramps Acid reflux Heart disease COPD (chronic obstructive pulmonary disease) Surgical History (Updated 08/29/24 @ 14:49 by Jaja Forrest) History of esophagogastroduodenoscopy (EGD) Hx of hand surgery Social History Smoking Status: Current every day smoker tobacco type: cigarettes alcohol intake: current substance use type: heroin and methamphetamine HPI HPI HPI: Patient is here to discuss Maxwell fundoplication. He had EGD. He is still complaining of severe reflux. ROS General General: No weight change, appetite, fatigue, colon cancer, breast cancer or weakness HEENT HEENT: No difficulty swallowing, eye injury, eye surgery, swollen glands or hoarseness Endo Endocrine: No thyroid disease, diabetes mellitus, thyroid cancer, Hair loss, heat intolerance or cold intolerance Skin Skin: No rash or changing moles Musc Musculoskeletal: No back problems, arthritis, rheumatoid arthritis, gout or joint pain Cardio Cardiovascular: Yes heart disease; No murmur, pacemaker, atrial fibrillation, high blood pressure, heart attack, heart stent, palpitations, shortness of breat with exertion or chest pain Psych Psychiatric: Yes depression and anxiety; No hearing voices Resp Respiratory: No shortness of breath, Yes sleep apnea, No cough, Yes COPD, No asthma, No emphysema and No wheezing Gastro Gastrointestinal: No abdominal pain, No nausea or vomiting, No diarrhea, No constipation, No blood in stool, Yes acid reflux, No hemorrhoids, Yes ulcers, No gallbladder problem and No black,tarry stools Steve Hematologic: Yes blood thinners, No blood disorders, No bleeding, No anemia and No blood clots Additional Details: 81mg aspirin Neuro Neurologic: No numbness, No tingling and No weakness Exam Const General: cooperative Orientation: alert and oriented x3 HENMT Head: normal to inspection Neck Neck: normal visual inspection and full ROM Chest Chest palpation & inspection: normal inspection of the chest Resp Effort & Inspection: normal respiratory effort Auscultation: clear to auscultation bilaterally Cardio Rate: regular rate Rhythm: regular rhythm GI Inspection: non-distended Palpation: soft and nontender Skin General: no rashes or lesions noted Neuro General: patient alert and patient oriented x3 Extrem General: full ROM Psych Appearance: grossly normal Mental Status: mental status grossly normal Assessment and Plan Assessment and Plan (1) Acid reflux: Status: Acute Plan: Patient is having severe acid reflux. I did an EGD to evaluate and he did have some reflux esophagitis. Biopsies were negative for Grande's. The patient will have manometry and then we discussed Maxwell fundoplication. I discussed robotic assisted laparoscopic Maxwell fundoplication with EGD. I discussed the procedure in detail as well as the risks including but not limited to bleeding, infection, injury other organs such as the esophagus, spleen, stomach or liver. Patient understands all the risks and is willing to proceed. Patient will be scheduled for manometry to determine if he will have a full wrap or a toupee and then he will be scheduled for surgery. Sancho Rodriguez MD Pager: [facility] [address] [place] [address], [address] [place] [address] Office: I have examined the patient and the H&P has been reviewed. There are no clinical changes since date of exam.
[2024-09-15] MEDS: Ipratropium/Albuterol Sulfate 3 ML AMPUL.NEB INHALATION (07:08)
[2024-09-15] MEDS: Clindamycin 900 MG/50 ML BAG 75 MG IV (07:40)
[2024-09-15] MEDS: Bupivacaine Mpf 0.5% 30 ML VIAL (09:18)
--- NOTE | 2024-09-15 09:33 | PCM.OPRPT ---
Operative Report (Standard) Operative Information Date of Procedure: 09/15/24 Pre-Operative Diagnosis: GERD Post-Operative Diagnosis: Same Surgery/Procedure Performed: Exploratory laparoscopy loan servicing representative: Yes Dusting And Brushing Machine Operator: Neeta Busch Tasks completed by first grade teacher: Opening and Closing Type of Anesthesia: General/Regional RN Documented Start/Stop Times: Operation Date: 09/15/24 07:30 Case Time Into Pre-Op 09/15/24 06:04 Out of Pre-Op 09/15/24 07:27 Anesthesia Start 09/15/24 07:32 Into Room 09/15/24 07:32 Procedure Start 09/15/24 08:07 Procedure End 09/15/24 09:29 Procedure Start Time: 08:07 Procedure Stop Time: :29 Select all DRAINS/GRAFTS/IMPLANTS that apply: None Estimated Blood Loss: 5 Specimen collected: No Description of surgery: The patient was brought back to the operating room and general anesthesia was induced. The abdomen was prepped and draped in usual sterile fashion. A midline incision was made superior to the umbilicus and a Veress needle was placed into the abdomen and a drop test was performed. The abdomen is insufflated to 15 mmHg. The Veress needle was removed and a port was placed into the abdomen. The camera was placed into the abdomen. An epigastric port was placed and then removed. The Chasidy liver retractor was placed through the incision and elevated the left lobe of the liver and was locked in place. Next under direct visualization 3 more 8 mm ports were placed in a line across the abdomen. Next the robot was docked. 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 Unsure if this is a replaced gastric or replaced right hepatic but the vessel appeared very large. I attempted to dissect underneath the vessel and the crura was unable to be dissected from below the vessel. I also attempted to dissect above the vessel but I was unable to get into the right plane to get around the esophagus. At this point I decided to abort the surgery as I was unable to find a good plane to gain the length on the esophagus and I did not want to break the virgin planes if I could not complete the procedure due to the vessel. The short gastrics on the greater curvature were not taken down. The only dissection performed was over the right crura. I will refer him to a tertiary center for repeat attempt Maxwell fundoplication. Surgical Findings: Large replaced vessel crossing over the lesser curvature at the GE junction Complications Complications: No Admit VTE Documentation VTE Mechan Device Prophylaxis: SCD's
--- NOTE | 2024-09-15 09:41 | DCINST_ITS ---
Discharge Instructions Diet Discharge Diet: Light diet - advance as tolerated Activity Discharge Activity: Return to Normal Activity, May Drive (in 2-3 days) and May Shower Lifting Restrictions: 15 lbs for 1 week Dressing / Incision Call your doctor if your incision/area has: Continuous Slow Oozing, Sudden Increased Bleeding, Increased Pain/ Swelling, Increased Redness, Foul Smelling Discharge and Swelling at the incision site Call your doctor if you observe: Fever of 101 or Higher Remove Dressing in: 2 days Cleanse incision/area with: Soap & Water Follow Up Care Please Follow Up With: Sancho Rodriguez MD When: I will make referral to Dr Matthew at [facility] Test Results: Test results from this visit will be discussed in further detail at your follow- up appointment, if applicable. Discharge Plan Admission Attending Provider: Sancho Rodriguez Primary Care Provider: Jennifer Mathur Instructions Print Language: Namibian Discharge Orders/Prescriptions Prescriptions: New oxycodone 5 mg tablet 5 mg PO Q6H PRN (Reason: pain) 5 Days Qty: 10 0RF No Action quetiapine 50 mg tablet extended release 24 hr 50 mg PO QHS hydroxyzine HCl 50 mg tablet 50 mg PO BID aspirin 81 mg tablet,delayed release (DR/EC) 81 mg PO QDAY omeprazole 40 mg capsule,delayed release(DR/EC) 40 mg PO BID Other Ambulatory Orders: 12 Lead EKG (Routine) Timeframe: [id number] Location: None Selected Ordered By: Dr. Noe Simon Referrals / Follow Up: Jennifer Mathur, [employer] [Primary Care Provider] - Disposition Disposition (needs filled in before D/C Order can be placed): Home, Self Care
--- NOTE | 2024-09-15 09:42 | PCM.POST.ANE ---
Anesthesia: Postop Eval I Current Vital Signs Temperature: 97.6 F Pulse Rate: 90 Blood Pressure: 118/88 Respiratory Rate: 18 Pulse Ox: 96 Oxygen Delivery Method: Simple Mask Oxygen Flow Rate (L/min): 6 Assessment Airway patent: Yes Spontaneous unlabored respirations: Yes Mental status: Awake and Calm nausea: No Vomiting: No Anesthesia Complication: No Fluid Hydration Crystalloid volume administer (ml): 800 Total IV fluid infused: 800 Progress Note Anesthesia document: Postop Eval 1 completed: Yes
--- NOTE | 2024-09-15 10:43 | POSTOPAN2_ITS ---
Anesthesia Postop Eval I Sum Postop Eval Completion status Anesthesia document: Postop Eval 1 completed: Yes Anesthesia Postop Eval I Summary Anesthesia Postop Eval I Summary: Anesthesia Postop Eval I: Assessment Summary Airway patent Yes 09/15/24 09:43 ELEVATOR CONSTRUCTOR HELPER.[email or web address] Spontaneous unlabored Yes 09/15/24 09:43 ELEVATOR CONSTRUCTOR HELPER.WAYNE respirations Mental status Awake,Calm 09/15/24 09:43 ELEVATOR CONSTRUCTOR HELPER.WAYNE nausea No 09/15/24 09:43 ELEVATOR CONSTRUCTOR HELPER.WAYNE Vomiting No 09/15/24 09:43 ELEVATOR CONSTRUCTOR HELPERBECCA Anesthesia Postop Eval I: Fluid Summary Crystalloid volume administer 800 09/15/24 09:43 ELEVATOR CONSTRUCTOR HELPER.WAYNE (ml) Colloids volume administered ( ml) Blood Product volume administered (ml) Total IV fluid infused 800 09/15/24 09:43 ELEVATOR CONSTRUCTOR HELPERBECCA Anesthesia Postop Eval I: Summary Notes Anesthesia Complication No 09/15/24 09:43 DELANO Anesthesia Complication Comment: Post-operative progress note Anesthesia: Postop Eval II Evaluation Mental status: Awake Pain Level: 0 nausea: No Vomiting: No
--- NOTE | 2024-09-15 10:43 | PCM.POSTANE2 ---
Anesthesia Postop Eval I Sum Postop Eval Completion status Anesthesia document: Postop Eval 1 completed: Yes Anesthesia Postop Eval I Summary Anesthesia Postop Eval I Summary: Anesthesia Postop Eval I: Assessment Summary Airway patent Yes 09/15/24 09:43 GOLD [email or web address] Spontaneous unlabored Yes 09/15/24 09:43 GOLD LETTERER.WAYNE respirations Mental status Awake,Calm 09/15/24 09:43 GOLD LETTERER.WAYNE nausea No 09/15/24 09:43 GOLD LETTERER.WAYNE Vomiting No 09/15/24 09:43 GOLD LETTERERBECCA Anesthesia Postop Eval I: Fluid Summary Crystalloid volume administer 800 09/15/24 09:43 GOLD LETTERER.WAYNE (ml) Colloids volume administered ( ml) Blood Product volume administered (ml) Total IV fluid infused 800 09/15/24 09:43 GOLD LETTERERBECCA Anesthesia Postop Eval I: Summary Notes Anesthesia Complication No 09/15/24 09:43 DELANO Anesthesia Complication Comment: Post-operative progress note Anesthesia: Postop Eval II Evaluation Mental status: Awake Pain Level: 0 nausea: No Vomiting: No
[2024-09-15] MEDS: oxyCODONE 5 MG Tablet 10 MG PO (11:09)
== END 2024-09-15 11:55 | disposition home or self-care (01) ==
LOC: SDC 05:58 → AC 06:01
PROVIDERS: PCP Nurse Practitioner Family; Referring Provider Surgery; Visit Provider Surgery
PROC: 0DV44ZZ Restriction of Esophagogastric Junction, Percutaneous Endoscopic Approach (ICD-10-PCS; CPT 49320; principal; 2024-09-15 07:10)
DX: K21.00 Gastro-esophageal reflux disease with esophagitis, without bleeding (principal); F31.9 Bipolar disorder, unspecified; K22.89 Other specified disease of esophagus; F17.210 Nicotine dependence, cigarettes, uncomplicated; Z79.899 Other long term (current) drug therapy
CPT/HCPCS: 49320; S2900; 00790; 93005; 94640; J2405

== ENCOUNTER 2024-09-17 11:02 | Emergency (ER) | payer MEDICAID, SELFPAY ==
[2024-09-17 11:03] VITALS: BP 156/89; PULSE 82; RESP 20; TEMP 36.2; O2SAT 99; BMI 30.1
--- NOTE | 2024-09-17 11:37 | ED.VIS.GI ---
HPI HPI - GI History of Present Illness Chief Complaint: Abd Pain Informant: patient Abdominal Pain/Flank Pain Onset: Today and Yesterday Context: Gradual Onset Timing: Continuous Quality: Aching, Sharp and Stabbing Location: Diffuse Current Severity: Moderate Maximum Severity: Moderate Worsened by: Nothing Relieved by: Nothing Nausea/Vomiting/Emesis GI Symptom: Negative for Nausea or Vomiting Diarrhea/Melena/Hematochezia GI Symptom: Positive for - (Movement today.); Negative for Diarrhea, Melena or Hematochezia Associated Symptoms Associated Symptoms: Positive for - (No difficulty urinating.); Negative for Dysuria, Frequency, Hematuria or Urgency Narrative Narrative: 33-year-old male history of COPD and bipolar. On September 15 he was having an exploratory laparoscopy done for possible Maxwell fundoplication. 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 They may have aborted the procedure because that. He was sent home with pain medication and was instructed to use Tylenol also. He was told to return if he is having worse pain he states last night he started having worse abdominal pain. He denies nausea or vomiting. He denies diarrhea or constipation. He denies fever or chills. States he had a bowel movement today. He has been urinating fine. Denies any prior abdominal surgeries otherwise. Prior similar symptoms: No Recent Illness/Hospitalization: No PFSH [facility] Medical History Gastric reflux Substance abuse Bipolar disorder Smoker Asthma Leg cramps Acid reflux Heart disease COPD (chronic obstructive pulmonary disease) Home Medications ?Medication ?Instructions ?Recorded ?Last Taken ?Type aspirin 81 mg tablet,delayed 81 mg PO QDAY 06/10/24 09/08/24 History release hydroxyzine HCl 50 mg tablet 50 mg PO BID 06/10/24 09/12/24 History quetiapine 50 mg tablet,extended 50 mg PO QHS 06/10/24 09/13/24 History release 24 hr omeprazole 40 mg capsule,delayed 40 mg PO BID 08/05/24 09/13/24 History release oxycodone 5 mg tablet 5 mg PO Q6H PRN pain 5 days #10 09/15/24 Unknown Rx tabs trazodone 50 mg tablet 50 mg PO QPM 09/17/24 Unknown History Allergy/AdvReac Type Severity Reaction Status Date / Time Penicillins Allergy Hives Verified 09/17/24 11:05 ibuprofen AdvReac Nausea Verified 09/17/24 11:05 Surgical History History of esophagogastroduodenoscopy (EGD) Hx of hand surgery Social History Smoking Status: Light Smoker (<10/day) alcohol intake: current substance use type: heroin and methamphetamine ROS ROS ED ROS Narrative Abdominal pain. Constitutional Constitutional ED: Denies chills or fever(s) ENT ENT ED: Denies ear pain Cardiovascular Cardiovascular: Denies chest pain Respiratory/Chest Respiratory/Chest: Denies cough or dyspnea Gastrointestinal Gastrointestinal: Reports abdominal pain; Denies constipation, diarrhea, melena, nausea or vomiting Genitourinary Genitourinary ED: Denies dysuria or hematuria Musculoskeletal Musculoskeletal: Denies arthralgias or back pain Integumentary Denies abscess or Abrasions Neurologic Neurologic: Denies headache(s) or paresthesias Psychiatric Psychiatric: Denies anxiety, depression or suicidal thoughts Endocrine Endocrinology: Denies polydipsia, polyphagia or polyuria Hematologic/Lymphatic Hematologic/Lymphatic: Denies easy bleeding, easy bruising or lymphadenopathy Allergic/Immunologic Allergic/Immunologic ED: Denies mouth swelling or tongue swelling EXAM Physical Exam Narrative Exam Narrative: 33-year-old male vital signs stable afebrile. Does not look septic toxic. Plan abdominal pain. Otherwise no distress. H EENT exam unremarkable. Poor dentition. Neck nontender. Lungs clear to auscultation. Heart regular rhythm rate about 80 no murmur. Abdomen soft. Diffusely tender. Well-healing laparoscopic incisions. When I palpate his abdomen he grabs my hand to remove it due to discomfort. I do not see any hernias. I do not feel mass. Moving all 4 extremities. Nontender. No edema. Back nontender. He is awake and alert. No focal motor deficits. Const Vital Signs: 09/17/24 11:03 Temperature 97.1 F L Temperature Source Temporal Pulse Rate 82 Respiratory Rate 20 H Blood Pressure 156/89 H Blood Pressure Mean 111 Pulse Ox 99 Oxygen Delivery Method Room Air Positive well nourished and well developed; Negative for cachectic, contractures or unkempt General Appearance ED: well developed and NAD; Negative for unkempt, cachectic or contractures Nutritional Appearance: Negative for cachectic HEENT Reports moist mucous membranes normocephalic and atraumatic; Negative for trauma or tenderness Eyes PERRL and EOMs intact bilaterally General Eye ED: Negative for pale conjunctiva or scleral icterus Neck no lymphadenopathy, supple and no JVD General: Negative for tenderness Lymph Lymphatic: Negative for other Resp normal respiratory effort and clear to auscultation bilaterally Effort and Inspection: Negative for respiratory distress Auscultation: Negative for rales, rhonchi, wheezes or diminished lung sounds Cardio regular rate, regular rhythm, S1 normal heart sound, S2 normal heart sound and no murmurs Rate: Negative for bradycardia or tachycardic Rhythm: Negative for abnormal rhythm GI no masses; Negative for non-tender Inspection: abdominal distention Palpation: soft, tender and guarding; Negative for rigid, hepatomegaly, splenomegaly, hernia or mass Back/Spine no CVA tenderness General Back: Negative for CVA tenderness Cervical Spine: Negative for cervical spine tenderness Thoracic Spine / Upper Back: Negative for thoracic spinal tenderness Lumbar Spine / Lower Back: Negative for lumbar spinal tenderness Extremity full ROM General Extremety ED: Negative for edema or tenderness General Extremity: Negative for edema Neuro CN's II-XII intact bilaterally and moves all extremities Sensorium / Orientation: alert, oriented to person, oriented to place and oriented to time Motor Exam: strength 5/5 throughout; Negative for general weakness or strength abnormal Psych mental status grossly normal and thought process normal Appearance: Negative for unkempt Attitude: No agitated Mood & Affect: Negative for depressed, anxious or tearful Skin no wounds Lesions: no lesions Rashes: no rashes MDM MDM MDM Narrative Medical decision making narrative: 33-year-old male with abdominal pain status post laparoscopic surgery. CAT scan being obtained to rule out obstruction versus bleeding versus other postop complication. Screening labs. IV morphine and Zofran. Repeat exam patient is doing much better at 12:30 PM. Says his pain is much improved after the morphine. His lab results are negative. CAT scan shows a small amount of intraperitoneal air suspected to be secondary to his recent laparoscope on the sixth. I discussed all test results with both he and his significant other. I spoke to general surgeon on-call Dr. Janet Lee. Both she and I are comfortable the patient being discharged to home with outpatient follow-up as needed. History & Record Review Discussion w/independent historian: Patient Additional record(s) reviewed:: Prior inpatient record, Prior outpatient record, Prior ED visit and Prior labs Lab Data Attestation: I reviewed the patient's lab results. Lab results narrative: CBC shows a white count of 6. H&H 16 and 47. Platelets 235. Electrolytes show gap 5. Normal BUN of 14 creatinine 0.9. Glucose 148. Liver enzymes unremarkable. ALT 68. Lipase normal at 27. Labs: Laboratory Results - last 24 hr 09/17/24 11:24 WBC 6.8 RBC 5.80 Hgb 16.6 H Hct 47.2 MCV 81.4 MCH 28.6 MCHC 35.2 RDW Std Deviation 39.0 RDW Coeff of Marques 13.2 Plt Count 235 MPV 10.8 Immature Gran % (Auto) 0.600 Neut % (Auto) 53.3 Lymph % (Auto) 34.6 Dane % (Auto) 8.2 Eos % (Auto) 2.6 Baso % (Auto) 0.7 Absolute Neuts (auto) 3.6 Absolute Lymphs (auto) 2.36 Nucleated RBC % 0 Sodium 136 Potassium 3.8 Chloride 103 Carbon Dioxide 28.0 Anion Gap 5 BUN 14 Creatinine 0.96 Estim Creat Clear Calc 134.40 Est GFR (MDRD) Af Amer 115 Est GFR (MDRD) Non-Af 95 BUN/Creatinine Ratio 14.6 Glucose 148 H Calcium 9.4 Total Bilirubin 0.50 AST 24 ALT 68 H Alkaline Phosphatase 75 Total Protein 7.1 Albumin 3.9 Globulin 3.2 Albumin/Globulin Ratio 1.2 Lipase 27 Radiography Diagnostic Testing: Clinical Impression(s) from Imaging Studies Abdomen/Pelvis CT 09/17/24 11:58 IMPRESSION: Small amount of free air is seen in the anterior peritoneal fat. The patient has a history of recent laparoscopic intervention and this may be related to the recent procedure. No acute abnormality is seen. Distended urinary bladder. Electronically Signed: Blayne Barclay MD at 12:28 EST , Discharge Plan Triage Chief Complaint: Abd Pain ED Provider: Luther San Dx/Rx/DC Orders Clinical Impression: Abdominal pain, Status post laparoscopic procedure Instructions: Abdominal Pain Prescriptions: No Action quetiapine 50 mg tablet extended release 24 hr 50 mg PO QHS hydroxyzine HCl 50 mg tablet 50 mg PO BID aspirin 81 mg tablet,delayed release (DR/EC) 81 mg PO QDAY omeprazole 40 mg capsule,delayed release(DR/EC) 40 mg PO BID oxycodone 5 mg tablet 5 mg PO Q6H PRN (Reason: pain) 5 Days Qty: 10 0RF trazodone 50 mg tablet 50 mg PO QPM Primary Care Provider: Jennifer Mathur Referrals: Sancho Rodriguez MD [Med Staff - Active Staff] - As Needed Jennifer Mathur, [employer] [Primary Care Provider] - As Needed Activity Restrictions/Additional Instructions: Tylenol for pain. Follow-up with your surgeon as needed. Your labs and CAT scan today look good. If you are having worsening pain, intractable vomiting or fever return. Print Language: Wolof Disposition Disposition: Home, Self Care
[2024-09-17] MEDS: Ondansetron 4 MG/2 ML Vial IV (11:51)
[2024-09-17] MEDS: morphine 8 MG/ML Syringe IV (11:52)
[2024-09-17 11:55] LABS: Absolute Lymphocyte Count 2.36 X10^3/uL (0.83-4.51); Absolute Neutrophil Count 3.6 X10^3/uL (2.0-7.7); Basophil# 0.05 X10^3/uL; Basophil% 0.7 % (0-1); Eosinophil# 0.18 X10^3/uL; Eosinophils% 2.6 % (0-5); Hematocrit 47.2 % (40-54); Hemoglobin 16.6 g/dL (13.0-16.5); Lymphocyte # 2.36 X10^3/ul (0.83-4.51); Lymphocyte % 34.6 % (19-41); Mean Corp Hgb Conc 35.2 g/dL (32-36); Mean Corpuscular Hgb 28.6 pg (27.0-32.0); Mean Corpuscular Volume 81.4 fL (80-94); Mean Platelet Vol. 10.8 fl (6.2-12.0); Monocyte# 0.56 X10^3/uL; Monocyte% 8.2 % (0-10); NRBC Flagged by Analyzer 0 % (0-5); Neutrophil # 3.64 X10^3/uL (2.7-7.7); Neutrophil % 53.3 % (47-70); Platelet Count 235 K/mm3 (150-450); RBC Distribution Width CV 13.2 % (11.6-14.6); White Blood Count 6.8 K/mm3 (4.4-11.0)
--- NOTE | 2024-09-17 11:58 | CT_ITS ---
STUDY: CT ABDOMEN AND PELVIS WITH CONTRAST REASON FOR EXAM: Male, 33 years old. Diffuse abd pain post op RADIATION DOSAGE (If Supplied By Facility): CTDIvol = ( 13.27 ) mGy, DLP = ( 1103.85 ) mGycm TECHNIQUE: Transaxial images were obtained from the dome of the diaphragm to the symphysis pubis without oral contrast. IV 100mL Isovue-300 was administered. Sagittal and coronal images were reconstructed. Individualized dose optimization techniques were used for this CT. COMPARISON: Comparison is made with prior study dated July 20, 2015. FINDINGS: Mild degree of increased linear markings at the lung bases suggestive of bibasilar atelectasis. This is slightly more prominent at the right lung base. The visualized portions of the heart are within normal limits. Normal liver. Normal gallbladder and extrahepatic biliary system. Normal spleen. Normal pancreas. Normal bilateral adrenal glands. Normal right kidney. Normal left kidney. Normal visualized stomach. Normal small intestine. Normal colon. The appendix is visualized and appears normal. Small amount of free air is seen within the anterior peritoneal fat. Normal abdominal aorta. Normal inferior vena cava. Normal retroperitoneum. The urinary bladder is distended. Normal abdominal wall. Straightening of the normal lumbar lordosis. CT/Abdomen/Pelvis W IV Cont ONLY IMPRESSION: Small amount of free air is seen in the anterior peritoneal fat. The patient has a history of recent laparoscopic intervention and this may be related to the recent procedure. No acute abnormality is seen. Distended urinary bladder. Electronically Signed: Blayne Barclay MD at 12:28 EST ,
[2024-09-17 12:02] LABS: ALB/GLOB Ratio 1.2 RATIO (0.9-2.4); AST(SGOT) 24 U/L (15-37); Alanine Aminotransfer ALT/SGPT 68 U/L (16-61); Albumin, Serum 3.9 g/dL (3.2-5.0); Alkaline Phosphatase 75 U/L (45-117); Anion Gap 5 (5-15); BUN 14 mg/dL (7-18); BUN/Creat Ratio 14.6 RATIO (10-20); Calcium,Total 9.4 mg/dL (8.5-10.1); Chloride 103 mmol/L (98-107); Creatinine, Serum 0.96 mg/dL (0.70-1.30); EST Glomerular Filtration Rate 95 mL/min (>60); Est Glom Filt Rate - Afr Amer 115 mL/min (>60); Globulin 3.2 g/dL (2.2-4.2); Glucose 148 mg/dL (74-106); Lipase 27 U/L (13-75); Potassium 3.8 mmol/L (3.5-5.1); Protein, Total 7.1 g/dL (6.4-8.2); Sodium Level 136 mmol/L (136-145)
[2024-09-17 12:48] VITALS: BP 156/89; PULSE 82; RESP 16; TEMP 36.2; O2SAT 98
== END 2024-09-17 12:56 | disposition home or self-care (01) ==
PROVIDERS: Emergency Provider Emergency Medicine; PCP Nurse Practitioner Family; Visit Provider Emergency Medicine
DX: R10.9 Unspecified abdominal pain (principal); F17.200 Nicotine dependence, unspecified, uncomplicated
CPT/HCPCS: 74177; 80053; 83690; 85025; 96374; 96375; 99283; Q9967; A4216; J2405

== ENCOUNTER 2024-12-27 21:44 | Emergency (ER) | payer MEDICAID, SELFPAY ==
[2024-12-27] VITALS (7 sets, daily range): BP systolic 120–147; BP diastolic 64–101; PULSE 59–105; RESP 16–23; TEMP 36.8; O2SAT 96–98; BMI 28.0
--- NOTE | 2024-12-27 21:59 | ED.RN ---
ON SUNDAY PT VOMITED AND EXPERIENCED A SYNCOPAL EPISODE. HIT HEAD ON WALL. CT HEAD AT [facility] NEGATIVE PER PT. PT STATES SINCE THEN HE HAS EXPERIENCED A SYNCOPAL EPISODE EVERY DAY. DENIES ANYTHING THAT PRECEDES EPISODES, HOWEVER S.O. STATES IT SOMETIMES HAPPENS AFTER SMOKING A CIGARETTE.
--- NOTE | 2024-12-27 22:11 | EKG12_ITS ---
Test Reason : SYNCOPE Blood Pressure : */* mmHG Vent. Rate : 77 BPM Atrial Rate : 77 BPM P-R Int : 174 ms QRS Dur : 96 ms QT Int : 406 ms P-R-T Axes : 60 24 48 degrees QTcB Int : 459 ms Normal sinus rhythm Normal ECG Confirmed by HERIBERTO EASTMAN, SUNDEEP ([id number]), assistant production editor CAROLE MONAE ([id number]) on 12/29/2024 8:38:06 AM Referred By: Rupert Hernández Confirmed By: SUNDEEP LOUIS MD
--- NOTE | 2024-12-27 22:12 | CT_ITS ---
PROCEDURE: BRAIN/HEAD WITHOUT CONTRAST 12/27/2024 REASON FOR EXAM: HEADACHE, TRAUMA, RECURRENT SYNCOPE, RLE WEAK TECHNIQUE: Head CT without intravenous contrast. Coronal and Sagittal reconstruction series were provided. One or more dose reduction techniques were used (e.g., Automated exposure control, adjustment of the mA and/or kV according to patient size, use of iterative reconstruction technique. RADIATION DOSE SUMMARY: CTDlvol: 45 mGy DLP: 846 mGycm COMPARISON: None FINDINGS: Brain: Within normal limits for age CSF Spaces: Normal Sinuses/Mastoids: Clear at visualized levels Bones: Unremarkable CT/Brain/Head without Contrast IMPRESSION: NO ACUTE FINDINGS Reading Location: [facility]
--- NOTE | 2024-12-27 22:12 | EX.ED.DYSGE1 ---
HPI History of Present Illness Chief Complaint: Syncope Informant: patient and spouse/S.O. Narrative Narrative: 34-year-old male presents for recurrent syncope. He states 3 days ago he was eating and became nauseated and vomited, which happens frequently to him due to reflux from what he thinks, but the other day he vomited and immediately passed out then resolved, fell and hit his head on the bathroom door. When he woke up he had a terrible headache, he went to a different hospital and he states they did a CT scan and told him it was negative and sent him home and told him to take Tylenol and Benadryl. He states has been taking Benadryl and he does not know why they told him to take Benadryl except for was for the headache. Now he has had multiple recurrent syncopal episodes randomly with no prodromal symptoms except for lightheadedness. He denies any chest discomfort, dyspnea, palpitations, rapid heartbeat, abdominal pain. However an hour ago when he last had this occur, he was eating, no nausea or vomiting, and passed out. When he came to, the significant other states he drag his right foot for 4 or 5 minutes and then went back to normal according to the patient. He has no complaints right now Except for the headache. He states the headaches been getting worse. He denies any recurrent head injuries that he knows of. 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 Takes reflux medication but no other daily medications prior to seeing the ER a couple days ago. [facility] Medical History Gastric reflux Substance abuse Bipolar disorder Smoker Asthma Leg cramps Acid reflux Heart disease COPD (chronic obstructive pulmonary disease) Home Medications ?Medication ?Instructions ?Recorded ?Last Taken ?Type aspirin 81 mg tablet,delayed 81 mg PO QDAY 06/10/24 09/08/24 History release Allergy/AdvReac Type Severity Reaction Status Date / Time Penicillins Allergy Hives Verified 12/27/24 21:48 ibuprofen AdvReac Nausea Verified 12/27/24 21:48 Surgical History History of esophagogastroduodenoscopy (EGD) Hx of hand surgery Social History Smoking Status: Light Smoker (<10/day) alcohol intake: current substance use type: heroin and methamphetamine ROS ROS ED Constitutional Constitutional ED: Denies chills or fever(s) Eyes Eyes: Denies change in vision or diplopia ENT ENT ED: Denies rhinorrhea or sore throat Cardiovascular Cardiovascular: Reports syncope; Denies chest pain or palpitations Respiratory/Chest Respiratory/Chest: Denies cough or dyspnea Gastrointestinal Gastrointestinal: Denies abdominal pain, diarrhea, nausea or vomiting Genitourinary Genitourinary ED: Denies dysuria or hematuria Musculoskeletal Musculoskeletal: Denies back pain or neck pain Integumentary Denies abscess or rash Neurologic Neurologic: Reports headache(s) and other Details: transient RLE weakness, see HPI ; Denies paresthesias Psychiatric Psychiatric: Denies anxiety or suicidal thoughts EXAM Physical Exam Const Vital Signs: 12/27/24 21:45 12/27/24 21:57 12/27/24 21:57 Temperature 98.3 F Temperature Source Temporal Pulse Rate 88 82 Pulse Rate [Lying] Pulse Rate [Sitting (for 1 minute prior to obtaining)] Pulse Rate [Standing (for 1 minute prior to obtaining)] Respiratory Rate 16 23 H Respiratory Effort Normal Respiratory Pattern Normal Blood Pressure 147/90 H 135/92 H Blood Pressure [Lying] Blood Pressure [Sitting (for 1 minute prior to obtaining)] Blood Pressure [Standing (for 1 minute prior to obtaining)] Blood Pressure Mean 109 106 Blood Pressure Mean [Lying] Blood Pressure Mean [Sitting (for 1 minute prior to obtaining)] Blood Pressure Mean [Standing (for 1 minute prior to obtaining)] Pulse Ox 98 98 Oxygen Delivery Method Room Air Room Air 12/27/24 22:16 12/27/24 22:43 12/27/24 22:50 Temperature Temperature Source Pulse Rate 64 Pulse Rate [Lying] 74 Pulse Rate [Sitting (for 1 minute prior to obtaining)] 61 Pulse Rate [Standing (for 1 minute prior to obtaining)] 105 H Respiratory Rate 18 Respiratory Effort Respiratory Pattern Blood Pressure 138/101 H Blood Pressure [Lying] 136/64 H Blood Pressure [Sitting (for 1 minute prior to obtaining)] 136/96 H Blood Pressure [Standing (for 1 minute prior to obtaining)] 138/101 H Blood Pressure Mean 113 Blood Pressure Mean [Lying] 88 Blood Pressure Mean [Sitting (for 1 minute prior to obtaining)] 109 Blood Pressure Mean [Standing (for 1 minute prior to obtaining)] 113 Pulse Ox 98 Oxygen Delivery Method Room Air Room Air 12/27/24 23:34 12/27/24 23:45 12/27/24 23:58 Temperature Temperature Source Pulse Rate 76 69 Pulse Rate [Lying] 85 Pulse Rate [Sitting (for 1 minute prior to obtaining)] 59 L Pulse Rate [Standing (for 1 minute prior to obtaining)] 59 L Respiratory Rate 16 16 Respiratory Effort Respiratory Pattern Blood Pressure 120/82 H Blood Pressure [Lying] 129/93 H Blood Pressure [Sitting (for 1 minute prior to obtaining)] 127/94 H Blood Pressure [Standing (for 1 minute prior to obtaining)] 130/82 H Blood Pressure Mean 96 Blood Pressure Mean [Lying] 105 Blood Pressure Mean [Sitting (for 1 minute prior to obtaining)] 105 Blood Pressure Mean [Standing (for 1 minute prior to obtaining)] 98 Pulse Ox 96 97 Oxygen Delivery Method 12/28/24 00:00 12/28/24 00:01 12/28/24 00:03 Temperature Temperature Source Pulse Rate 67 61 47 L Pulse Rate [Lying] Pulse Rate [Sitting (for 1 minute prior to obtaining)] Pulse Rate [Standing (for 1 minute prior to obtaining)] Respiratory Rate 12 18 21 H Respiratory Effort Respiratory Pattern Blood Pressure 130/82 H 127/94 H 129/93 H Blood Pressure [Lying] Blood Pressure [Sitting (for 1 minute prior to obtaining)] Blood Pressure [Standing (for 1 minute prior to obtaining)] Blood Pressure Mean 96 105 102 Blood Pressure Mean [Lying] Blood Pressure Mean [Sitting (for 1 minute prior to obtaining)] Blood Pressure Mean [Standing (for 1 minute prior to obtaining)] Pulse Ox 99 99 99 Oxygen Delivery Method 12/28/24 00:09 12/28/24 00:15 12/28/24 00:30 Temperature Temperature Source Pulse Rate 51 L 55 L Pulse Rate [Lying] Pulse Rate [Sitting (for 1 minute prior to obtaining)] Pulse Rate [Standing (for 1 minute prior to obtaining)] Respiratory Rate 16 12 Respiratory Effort Respiratory Pattern Blood Pressure 129/93 H 137/107 H 124/96 H Blood Pressure [Lying] Blood Pressure [Sitting (for 1 minute prior to obtaining)] Blood Pressure [Standing (for 1 minute prior to obtaining)] Blood Pressure Mean 105 117 103 Blood Pressure Mean [Lying] Blood Pressure Mean [Sitting (for 1 minute prior to obtaining)] Blood Pressure Mean [Standing (for 1 minute prior to obtaining)] Pulse Ox 94 99 Oxygen Delivery Method Room Air 12/28/24 00:45 12/28/24 01:00 Temperature Temperature Source Pulse Rate 64 62 Pulse Rate [Lying] Pulse Rate [Sitting (for 1 minute prior to obtaining)] Pulse Rate [Standing (for 1 minute prior to obtaining)] Respiratory Rate 18 10 L Respiratory Effort Respiratory Pattern Blood Pressure 128/102 H Blood Pressure [Lying] Blood Pressure [Sitting (for 1 minute prior to obtaining)] Blood Pressure [Standing (for 1 minute prior to obtaining)] Blood Pressure Mean 111 Blood Pressure Mean [Lying] Blood Pressure Mean [Sitting (for 1 minute prior to obtaining)] Blood Pressure Mean [Standing (for 1 minute prior to obtaining)] Pulse Ox 98 99 Oxygen Delivery Method Positive well nourished and well developed General Appearance ED: well developed and NAD HEENT Reports moist mucous membranes normocephalic and atraumatic Eyes PERRL and EOMs intact bilaterally Neck full ROM and supple Resp normal respiratory effort and clear to auscultation bilaterally Cardio regular rate, regular rhythm and no murmurs GI non-tender and non-distended Auscultation: normoactive bowel sounds Palpation: soft Back/Spine no CVA tenderness General Back: other FROM Extremity normal to inspection General Extremety ED: Negative for edema, pulses abnormal or tenderness General Extremity: Negative for edema or pulses abnormal Neuro oriented x3, CN's II-XII intact bilaterally and no sensory deficits noted Sensorium / Orientation: awake and alert Motor Exam: strength 5/5 throughout Skin no rashes or lesions noted and no wounds MDM MDM MDM Narrative Medical decision making narrative: With complaints of a transient focal neurologic deficit and worsening headache after hitting his head, understanding that he already had a CT at another hospital, I performed another CT of the head in order to rule out growing small subdural hematoma, subarachnoid hemorrhage, or other explanation in the BILLET EXAMINER of the focal deficit. My interpretation the scan is normal. His EKG and his rhythm are normal. His vital signs are normal we did orthostatics they are positive, he stood up and felt lightheaded/near syncopal and his pulse went from 60 to just over 100 but blood pressure normal. His labs are normal, including troponin and D-dimer ruling out pulmonary embolus. He is not anemic. I discussed the orthostasis with him he states he drinks plenty of fluids all day. His renal function is normal he is not necessarily prerenal, I gave him a liter of fluid and then repeated orthostatics, they were negative although he still felt lightheaded when he stood up, but not as bad according to staff. We did a repeat troponin that was negative, however the patient decided to elope due to waiting before he was discharged. He said he was tired of waiting according to staff. 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 However, before this, I had already discussed with the patient and significant other about the possibility that this could be cardiac and that an event monitor may be indicated, I think this is less likely to be needed since he is orthostatic, but he may need to follow-up with cardiology and have a tilt table, however he elected not to stay for that discussion and told staff specifically that he was not waiting for his paperwork. History & Record Review Additional record(s) reviewed:: Prior outpatient record (surgery note/encounter from 09/2024) Lab Data Attestation: I reviewed the patient's lab results. Labs: Laboratory Results - last 24 hr 12/27/24 12/27/24 21:55 23:55 WBC 6.3 RBC 5.71 Hgb 16.3 Hct 47.1 MCV 82.5 MCH 28.5 MCHC 34.6 RDW Std Deviation 39.5 RDW Coeff of Marques 13.3 Plt Count 255 MPV 10.7 Immature Gran % (Auto) 0.200 Neut % (Auto) 41.9 L Lymph % (Auto) 44.3 H [place] % (Auto) 9.0 Eos % (Auto) 3.5 Baso % (Auto) 1.1 H Absolute Neuts (auto) 2.6 Absolute Lymphs (auto) 2.79 Nucleated RBC % 0 D-Dimer Quant (PE/DVT) 0.27 Sodium 139 Potassium 3.8 Chloride 104 Carbon Dioxide 22.3 Anion Gap 12 BUN 14 Creatinine 0.96 Estim Creat Clear Calc 129.00 Est GFR (MDRD) Non-Af 107 BUN/Creatinine Ratio 14.1 Glucose 105 H Calcium 9.6 Troponin T High Sens < 6 Troponin T Hi Sens 2 Hr < 6 Radiography Diagnostic Testing: Clinical Impression(s) from Imaging Studies Brain CT 12/27/24 22:12 IMPRESSION: NO ACUTE FINDINGS [facility] Rhythm Strip Rhythm Strip: Sinus arrhythmia Rate: 77 Ectopy: None EKG Initial EKG: Attestation: I personally reviewed and interpreted this EKG as follows: Interpretation: Sinus Rhythm and No Acute Injury Pattern Comments: Nml axis & intervals; nml EKG Discharge Plan Triage Chief Complaint: Syncope ED Provider: Rupert Hernández Dx/Rx/DC Orders Clinical Impression: Recurrent syncope, Orthostatic dizziness Instructions: ED Hypotension, Orthostatic Prescriptions: No Action aspirin 81 mg tablet,delayed release (DR/EC) 81 mg PO QDAY Primary Care Provider: Jennifer Mathur [facility] Referrals: Errol Mahoney MD [Med Staff - Active Staff] - As soon as possible Print Language: Nauruan Disposition Disposition: Home, Self Care
[2024-12-27 22:30] LABS: Absolute Lymphocyte Count 2.79 X10^3/uL (0.83-4.51); Absolute Neutrophil Count 2.6 X10^3/uL (2.0-7.7); Basophil# 0.07 X10^3/uL; Basophil% 1.1 % (0-1); Eosinophil# 0.22 X10^3/uL; Eosinophils% 3.5 % (0-5); Hematocrit 47.1 % (40-54); Hemoglobin 16.3 g/dL (13.0-16.5); Lymphocyte # 2.79 X10^3/ul (0.83-4.51); Lymphocyte % 44.3 % (19-41); Mean Corp Hgb Conc 34.6 g/dL (32-36); Mean Corpuscular Hgb 28.5 pg (27.0-32.0); Mean Corpuscular Volume 82.5 fL (80-94); Mean Platelet Vol. 10.7 fl (6.2-12.0); Monocyte# 0.57 X10^3/uL; NRBC Flagged by Analyzer 0 % (0-5); Neutrophil # 2.64 X10^3/uL (2.7-7.7); Neutrophil % 41.9 % (47-70); Platelet Count 255 K/mm3 (150-450); RBC Distribution Width CV 13.3 % (11.6-14.6); RBC Distribution Width SD 39.5 fl (35.1-43.9); Red Blood Count 5.71 M/mm3 (4.6-6.2); White Blood Count 6.3 K/mm3 (4.4-11.0)
[2024-12-27 22:37] LABS: D-Dimer Quantitative (DVT/PE) 0.27 FEU/ug/m (0.27-0.49)
[2024-12-27 22:43] LABS: Anion Gap 12 (5-15); BUN 14 mg/dL (4-19); BUN/Creat Ratio 14.1 RATIO (10-20); Calcium,Total 9.6 mg/dL (7.6-11.0); Carbon Dioxide 22.3 mmol/L (21.0-32.0); Chloride 104 mmol/L (98-108); Creatinine, Serum 0.96 mg/dL (0.70-1.20); EST Glomerular Filtration Rate 107 (>60); Glucose 105 mg/dL (70-99); Potassium 3.8 mmol/L (3.3-5.1); Sodium Level 139 mmol/L (133-145); Troponin T High Sensitivity < 6 ng/L (<=22)
[2024-12-27] MEDS: Ketorolac 30 MG/ML Syringe IV (23:00)
[2024-12-27] MEDS: 0.9% Normal Saline (1000mL) 1,000 ML 999 ML IV (23:00)
[2024-12-28] VITALS (8 sets, daily range): BP systolic 124–137; BP diastolic 82–107; PULSE 47–67; RESP 10–21; O2SAT 94–99
[2024-12-28 00:25] LABS: Troponin T High Sens 2 HR < 6 ng/L (<=22)
--- NOTE | 2024-12-28 01:18 | ED.RN ---
Patient rings out and states come in here and take this fucking thing out of my arm I am fucking leaving. This nurse to room, pt is pacing around room, pt begins yelling at nurse this is fucking alisson, I have been waiting all fucking night for the doctor to give me my results and I am done waiting. This nurse asks patient to calm down, patient states I know there is more than one fucking doctor in the hospital so you can't tell me he's busy. Informed pt that currently there is only one doctor in the ED. Pt then states well one of you fucking nurses can give me my results, this nurse informed pt that the doctor has to be the one to give results. Pt states fine just send them to [facility] and my doctor will review them. Informed pt that his doctor would need to request results and they will be sent. This nurse removed IV, pt refused discharge vitals. Ambulates out of department independently.
== END 2024-12-28 01:27 | disposition left against medical advice (07) ==
PROVIDERS: Emergency Provider Emergency Medicine; PCP Nurse Practitioner Family; Referring Provider Emergency Medicine; Visit Provider Emergency Medicine
DX: R55 Syncope and collapse (principal); J44.9 Chronic obstructive pulmonary disease, unspecified; R42 Dizziness and giddiness; K21.9 Gastro-esophageal reflux disease without esophagitis; Z79.899 Other long term (current) drug therapy; F17.200 Nicotine dependence, unspecified, uncomplicated
CPT/HCPCS: 70450; 80048; 84484; 85025; 85379; 93005; 96361; 96374; 99285; A4216

== ENCOUNTER 2025-02-09 16:23 | Emergency (ER) | payer MEDICAID, SELFPAY ==
[2025-02-09 16:24] VITALS: BP 132/91; PULSE 76; RESP 19; TEMP 36.7; O2SAT 98
--- NOTE | 2025-02-09 17:11 | RAD_ITS ---
PROCEDURE: SHOULDER MIN 2 VIEWS 02/09/2025 REASON FOR EXAM: FALL TECHNIQUE: Four views of the left shoulder. COMPARISON: None. FINDINGS: No evidence of acute fracture or dislocation. Soft tissues are unremarkable. RAD/Shoulder min 2 Views IMPRESSION: No acute osseous abnormalities. Reading Location: [place] [id number]
--- NOTE | 2025-02-09 21:45 | ED.RN ---
NO ANSWER WHEN PATIENT CALLED FOR ROOM AT [id number]
== END 2025-02-09 21:46 | disposition left against medical advice (07) ==
LOC: ED 21:50
PROVIDERS: PCP Nurse Practitioner Family
DX: Z53.21 Procedure and treatment not carried out due to patient leaving prior to being seen by health care provider (principal)
CPT/HCPCS: 73030; 99281

== ENCOUNTER 2025-04-21 | Emergency (ER) | payer MEDICAID, SELFPAY ==
[2025-04-21 00:02] VITALS: BP 118/81; PULSE 85; RESP 18; TEMP 36.7; O2SAT 98; BMI 25.3
--- OUTSIDE RECORDS SUMMARY | 2025-04-21 00:26 | XMS RPT_ITS | CCD ---
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 [facility] Comment on above: Performed By: #### 2 4323-8 #### IRENE HULL ([id number]) [facility] ([facility]) [address] [place] [address] 80211 Urea nitrogen [Mass/Vol] 9 mg/dL Normal 6-23 [facility] Comment on above: Performed By: #### 2 4323-8 #### IRENE HULL ([id number]) [facility] ([facility]) [address] [place] [address] 81555 ECG 12-LEADon 04-14-2025 ECG 12-LEAD Ventricular Rate 74 Atrial Rate 74 P-R Interval 162 QRS Duration 94 Q-T Interval 384 QTC Calculation(Bazett) 426 P [place] 69 R [place] 42 T [place] 63 QRS Count 12 Q Onset 222 P Onset 141 P Offset 184 T Offset 414 QTC Fredericia 412 Diagnosis Normal sinus rhythm Normal ECG When compared with ECG of 14-APR-2025 19:04, (unconfirmed) Sinus rhythm has replaced Junctional rhythm Criteria for Anterior infarct are no longer Present T wave inversion no longer evident in Lateral leads See ED provider note for full interpretation and clinical correlation Confirmed by Ivy Nava ([id number]) on 04/16/2025 10:59:45 AM Normal [facility] Lipaseon 04-14-2025 Lipase [Catalytic activity/Vol] 13 U/L U/L [facility] Lipase [Catalytic activity/V ol]on 04-14-2025 Interpretation and review of laboratory results Normal [facility] Venipuncture immedia tely after or during the administration of Metamizole may lead to falsely low results. Testing should be performed immediately prior to Metamizole dosing. [facility] Triacylglycerol lipaseon Lipase [Catalytic activity/Vol] 13 U/L Normal [facility] Comment on above: Order Comment: Venip uncture immediately after or during the administration of Metamizole may lead to falsely low results. Testing should be performed immediately prior to Metamizole dosing. Performed By: #### 3 040-3 #### BONILLA DELLA ([id number]) [facility] ([facility]) [address] [place] [address] Tropinin I.cardiac panel Hig h sensitivity methodon 04-14-2025 Interpretation and review of laboratory results Normal [facility] Less than 99th perce ntile of normal range cutoff- Female and children under 18 years old <14 ng/L; Male <21 ng/L: Negative Repeat testing should be performed if clinically indicated. Female and children under 18 years old 14-50 ng/L; Male 21-50 ng/L: Consistent with possible cardiac damage and possible increased clinical risk. Serial measurements may help to assess extent of myocardial damage. >50 ng/L: Consistent with cardiac damage, increased clinical risk and myocardial infarction. Serial measurements may help assess extent of myocardial damage. NOTE: Children less than 1 year old may have higher baseline troponin levels and results should be interpreted in conjunction with the overall clinical context. NOTE: Troponin I testing is performed using a different testing methodology at [facility] than at other [facility]. Direct result comparisons should only be made within the same method. [facility] Interpretation and review of laboratory results Normal [facility] Less than 99th perce ntile of normal range cutoff- Female and children under 18 years old <14 ng/L; Male <21 ng/L: Negative Repeat testing should be performed if clinically indicated. Female and children under 18 years old 14-50 ng/L; Male 21-50 ng/L: Consistent with possible cardiac damage and possible increased clinical risk. Serial measurements may help to assess extent of myocardial damage. >50 ng/L: Consistent with cardiac damage, increased clinical risk and myocardial infarction. Serial measurements may help assess extent of myocardial damage. NOTE: Children less than 1 year old may have higher baseline troponin levels and results should be interpreted in conjunction with the overall clinical context. NOTE: Troponin I testing is performed using a different testing methodology at [facility] than at other [facility]. Direct result comparisons should only be made within the same method. [facility] Troponin I, High Sensitivity , Initialon 04-14-2025 Tropinin I.cardiac panel High sensitivity method ng/L 0 - 20 ng/L [facility] Troponin I.cardiac panelon 0 04-14-2025 Tropinin I.cardiac panel High sensitivity method 3 ng/L Normal 0-20 [facility] Comment on above: Order Comment: Less than 99th percentile of normal range cutoff- Female and children under 18 years old <14 ng/L; Male <21 ng/L: Negative Repeat testing should be performed if clinically indicated. Female and children under 18 years old 14-50 ng/L; Male 21-50 ng/L: Consistent with possible cardiac damage and possible increased clinical risk. Serial measurements may help to assess extent of myocardial damage. >50 ng/L: Consistent with cardiac damage, increased clinical risk and myocardial infarction. Serial measurements may help assess extent of myocardial damage. NOTE: Children less than 1 year old may have higher baseline troponin levels and results should be interpreted in conjunction with the overall clinical context. NOTE: Troponin I testing is performed using a different testing methodology at [facility] than at other [facility]. Direct result comparisons should only be made within the same method. Performed By: #### 8 9577-1 #### IRENE HULL ([id number]) [facility] ([facility]) [address] [place], [place] [id number] Tropinin I.cardiac panel High sensitivity method <3 Normal 0-20 [facility] Comment on above: Order Comment: Less than 99th percentile of normal range cutoff- Female and children under 18 years old <14 ng/L; Male <21 ng/L: Negative Repeat testing should be performed if clinically indicated. Female and children under 18 years old 14-50 ng/L; Male 21-50 ng/L: Consistent with possible cardiac damage and possible increased clinical risk. Serial measurements may help to assess extent of myocardial damage. >50 ng/L: Consistent with cardiac damage, increased clinical risk and myocardial infarction. Serial measurements may help assess extent of myocardial damage. NOTE: Children less than 1 year old may have higher baseline troponin levels and results should be interpreted in conjunction with the overall clinical context. NOTE: Troponin I testing is performed using a different testing methodology at [facility] than at other [facility]. Direct result comparisons should only be made within the same method. Performed By: #### 8 9577-1 #### IRENE HULL ([id number]) [facility] ([facility]) [address] [place], [place] [id number] Troponin, High Sensitivity, 1 Houron 04-14-2025 Tropinin I.cardiac panel High sensitivity method 3 ng/L 0 - 20 ng/L [facility] CBC W Auto Differential pane l (Bld)on 03-20-2025 Basophils (Bld) [#/Vol] 0.04 10*3/uL [facility] Basophils/100 WBC (Bld) 0.7 % 0.0 - 2.0 % [facility] Eosinophils (Bld) [#/Vol] 0.13 10*3/uL [facility] Eosinophils/100 WBC (Bld) 2.3 % 0.0 - 6.0 % [facility] Erythrocyte distribution width (RBC) [Ratio] 12.8 % 11.5 - 14.5 % [facility] Hematocrit (Bld) [Volume fraction] 47.8 % 41.0 - 52.0 % [facility] Hemoglobin (Bld) [Mass/Vol] 16.9 g/dL 13.5 - 17.5 g/dL [facility] Immature granulocytes (Bld) [#/Vol] 0.02 10*3/uL [facility] Immature granulocytes/100 WBC (Bld) 0.4 % 0.0 - 0.9 % [facility] Comment on above: Immature Granulocyte Count (IG) includes promyelocytes, myelocytes and metamyelocytes but does not include bands. Percent differential counts (%) should be interpreted in the context of the absolute cell counts (cells/UL). Interpretation and review of laboratory results Abnormal [facility] Lymphocytes (Bld) [#/Vol] 1.73 10*3/uL [facility] Lymphocytes/100 WBC (Bld) 30.4 % 13.0 - 44.0 % [facility] MCH (RBC) [Entitic mass] 28.4 pg 26. 0 - 34.0 pg [facility] MCHC (RBC) [Mass/Vol] 35.4 g/dL 32.0 - 36.0 g/dL [facility] MCV (RBC) [Entitic vol] 80 fL 80 - 100 fL [facility] Monocytes (Bld) [#/Vol] 0.51 10*3/uL [facility] Monocytes/100 WBC (Bld) 8.9 % 2.0 - 10.0 % [facility] Neutrophils (Bld) [#/Vol] 3.27 10*3/uL [facility] Comment on above: Percent differential counts (%) should be interpreted in the context of the absolute cell counts (cells/uL). Neutrophils/100 WBC (Bld) 57.3 % 40.0 - 80.0 % [facility] Nucleated RBC/100 WBC (Bld) [Ratio] 0 % [facility] Platelets (Bld) [#/Vol] 214 10*3/uL [facility] RBC (Bld) [#/Vol] 5.95 10*6/uL [facility] WBC (Bld) [#/Vol] 5.7 10*3/uL [place] Basophils (Bld) [#/Vol] 0.04 x10*3/uL Normal 0.00-0.10 [facility] Comment on above: Performed By: #### 5 7021-8 #### IRENE HULL ([id number]) [facility] ([facility]) [address] [place] [address] 85134 Basophils/100 WBC (Bld) 0.7 % Normal 0.0-2.0 [facility] Comment on above: Performed By: #### 5 7021-8 #### IRENE HULL ([id number]) [facility] ([facility]) [address] [place] [address] 86867 Eosinophils (Bld) [#/Vol] 0.13 x10*3/uL Normal 0.00-0.70 [facility] Comment on above: Performed By: #### 5 7021-8 #### IRENE HULL ([id number]) [facility] ([facility]) [address] [place] [address] 98684 Eosinophils/100 WBC (Bld) 2.3 % Normal 0.0-6.0 [facility] Comment on above: Performed By: #### 5 7021-8 #### IRENE HULL ([id number]) [facility] ([facility]) [address] [place] [address] 48251 Erythrocyte distribution width (RBC) [Ratio] 12.8 % Normal 11.5-14.5 [facility] Comment on above: Performed By: #### 5 7021-8 #### IRENE HULL ([id number]) [facility] ([facility]) [address] [place] [address] 94350 Hematocrit (Bld) [Volume fraction] 47.8 % Normal 41.0-52.0 [facility] Comment on above: Performed By: #### 5 7021-8 #### IRENE HULL ([id number]) [facility] ([facility]) [address] [place] [address] 85347 Hemoglobin (Bld) [Mass/Vol] 16.9 g/dL Normal 13.5-17.5 [facility] Comment on above: Performed By: #### 5 7021-8 #### IRENE HULL ([id number]) [facility] ([facility]) [address] [place] [address] 00087 Immature granulocytes (Bld) [#/Vol] 0.02 x10*3/uL Normal 0.00-0.70 [facility] Comment on above: Performed By: #### 5 7021-8 #### IRENE HULL ([id number]) [facility] ([facility]) [address] [place] [address] 23991 Immature granulocytes/100 WBC (Bld) 0.4 % Normal 0.0-0.9 [facility] Comment on above: Result Comment: Kaylin ture Granulocyte Count (IG) includes promyelocytes, myelocytes and metamyelocytes but does not include bands. Percent differential counts (%) should be interpreted in the context of the absolute cell counts (cells/UL). Performed By: #### 5 7021-8 #### IRENE HULL ([id number]) [facility] ([facility]) [address] [place] [address] 34924 Lymphocytes (Bld) [#/Vol] 1.73 x10*3/uL Normal 1.20-4.80 [facility] Comment on above: Performed By: #### 5 7021-8 #### IRENE HULL ([id number]) [facility] ([facility]) [address] [place] [address] 17783 Lymphocytes/100 WBC (Bld) 30.4 % Normal 13.0-44.0 [facility] Comment on above: Performed By: #### 5 7021-8 #### IRENE HULL ([id number]) [facility] ([facility]) [address] [place] [address] 90754 MCH (RBC) [Entitic mass] 28.4 pg Normal 26.0-34.0 [facility] Comment on above: Performed By: #### 5 7021-8 #### IRENE HULL ([id number]) [facility] ([facility]) [address] [place] [address] 17307 MCHC (RBC) [Mass/Vol] 35.4 g/dL Normal 32.0-36.0 [facility] Comment on above: Performed By: #### 5 7021-8 #### IRENE HULL ([id number]) [facility] ([facility]) [address] [place] [address] 51371 MCV (RBC) [Entitic vol] 80 fL Normal 80-100 U [facility] Comment on above: Performed By: #### 5 7021-8 #### IRENE HULL ([id number]) [facility] ([facility]) [address] [place] [address] 66924 Monocytes (Bld) [#/Vol] 0.51 x10*3/uL Normal 0.10-1.00 [facility] Comment on above: Performed By: #### 5 7021-8 #### IRENE HULL ([id number]) [facility] ([facility]) [address] [place] [address] 39833 Monocytes/100 WBC (Bld) 8.9 % Normal 2.0-10.0 [facility] Comment on above: Performed By: #### 5 7021-8 #### IRENE HULL ([id number]) [facility] ([facility]) [address] [place] [address] 95839 Neutrophils (Bld) [#/Vol] 3.27 x10*3/uL Normal 1.20-7.70 [facility] Comment on above: Result Comment: Perc ent differential counts (%) should be interpreted in the context of the absolute cell counts (cells/uL). Performed By: #### 5 7021-8 #### IRENE HULL ([id number]) [facility] ([facility]) [address] [place] [address] 33524 Neutrophils/100 WBC (Bld) 57.3 % Normal 40.0-80.0 [facility] Comment on above: Performed By: #### 5 7021-8 #### IRENE HULL ([id number]) [facility] ([facility]) [address] [place] [address] 75467 Nucleated RBC/100 WBC (Bld) [Ratio] 0.0 /100 WBCs Normal 0.0-0.0 [facility] Comment on above: Performed By: #### 5 7021-8 #### IRENE HULL ([id number]) [facility] ([facility]) [address] [place] [address] Platelets (Bld) [#/Vol] 214 x10*3/uL Normal 150-450 [facility] Comment on above: Performed By: #### 5 7021-8 #### IRENE HULL ([id number]) [facility] ([facility]) [address] [place] [address] RBC (Bld) [#/Vol] 5.95 x10*6/uL High 4.50-5.90 [facility] Comment on above: Performed By: #### 5 7021-8 #### IRENE HULL ([id number]) [facility] ([facility]) [address] [place] [address] WBC (Bld) [#/Vol] 5.7 x10*3/uL Normal 4.4-11.3 [facility] Comment on above: Performed By: #### 5 7021-8 #### IRENE HULL ([id number]) [facility] ([facility]) [address] [place] [address] CNPEsther 03-20-2025 CNPN Telephone (AGGENS4) ----- AMADO MARINELLI ([id number]) 1990 M Date Time Provider Department 03/20/25 HARRIET RIVERA During your visit today, we recorded the following information about you: Bipin Wei, NAZ 03/20/2025 10:14 AM Signed Patient's significant other called and left a message yesterday about Amado. She returned my call this morning. [facility] said, He is having so much pain from his ulcer and the snf refuses to give him his medications. He isn't able to eat and he is supposed to be on a liquid diet, you know those protein drinks and they won't give it to him. He can't even keep down water. I told Yoly if he cannot keep liquids down he needs to go to the ER and the snf has a protocol for that. Yoly states they refuse to take him. That snf is being investigated for not giving people their medications from the doctor. Can't you call the snf? I've called them, his mother has called them and cussed them out. They are not doing anything. I told Yoly this is beyond our capabilities and recommended that she and Amado's mom reach out to Amado's environmental attorney who will have the legal knowledge to assist Amado. Yoly verbally acknowledged my suggestion. Tex Potter RN, RN 03/20/2025 3:41 PM Addendum Pt's mother called post op line in regards to [facility] She is not listed in his chart as a contact or on his HIPAA contact list. Advised her of this, and let her know that I could take her message, but could not give her medical information. She reports that he is having pain, so the snf took him to the hospital for evaluation, then was sent back to snf. Per the mother, the nurse at the snf does not want him there, because they think he is medically unstable. The mother states the snf is requesting a form sent over for a medical release for her son. Advised her that we did not evaluate him, but if the hospital that evaluated him deemed him medically unstable, they would have to write a medical release form. Advised her as well, that the snf would contact us if they needed a form for his medical release. She then said our office has written notes for him to stay out of snf before and we need to write one for him to leave. She states he needs to see his doctor. Advised her that the snf makes the decision to take him to get medically treated, which they have done and they have not contacted our office. Advised her that I will forward her message to Dr. Rivera and Bipin Wei, RN. She insists that we do not need to speak with the snf, because they don't do things like [facility]. She states, well you just don't know [facility], you just send them the form. Advised that is not our policy. Pt's mother has no further questions. Tex Hartman RN, BSN Bariatric Rn Lactation Tex Hartman RN 03/20/2025 3:02 PM Signed Pt's jim Rivera called again to insist that Dr. Rivera or Dr. Rivera's nurse write a medical release form to [facility] for pt. Advised (multiple times) that we do not write medical release forms without speaking with the snf and/or evaluation of the patient. Assured her that the snf has their protocols for pt's( inmates) who need medical attention/evaluation. Advised her that her and his mother's multiple requests have been noted and will be sent to Dr. Rivera and Bipin Wei, NAZ. Pt's jim was quite upset and states I'll be looking into you guys then, because you are supposed to write a note, and that is what we were told. She hung up the phone. She has since called back multiple times. Tex Hartman RN, BSN Bariatric Rn Lactation Allergies As of Date: 03/20/2025 Noted Allergy Reaction IBUPROFEN 02/19/2015 8 - GI Upset NAPROXEN 02/19/2015 8 - GI Upset PENICILLINS 04/23/2013 14 - Other: See Comments Comments: Throat started to close up. Date Reviewed: 03/05/2025 Reviewed by: Harriet Rivera MD - Fully Assessed Reason for Visit: Patient Question [3247] Prescriptions as of 03/20/2025 - pantoprazole DR (PROTONIX) 40 mg tablet Take 1 tablet by mouth two times a day. - sucralfate (CARAFATE) 1 gram tablet Take 1 tablet by mouth three times a day. - aspirin, enteric coated (ASPIRIN, ENTERIC COATED) 81 mg EC tablet Take 1 tablet by mouth every afternoon. - hydrOXYzine HCl (ATARAX) 50 mg tablet Take 1 tablet by mouth every 12 hours. - QUEtiapine XR (SEROQUEL XR) 50 mg Tb24 Take 50 mg by mouth daily at bedtime. - traZODone (DESYREL) 50 mg tablet Take 50 mg by mouth daily at bedtime. - ALBUTEROL INHALATION Inhale as instructed. - keTORolac (TORADOL) 10 mg tablet Take 1 tablet by mouth every 6 hours as needed. Meds Comments as of 06/10/2023: June 10, 2023: Patient reports no changes to medication (more content not included)... Normal [facility] Comprehensive metabolic 2000 panelon 03-20-2025 Albumin BCP dye [Mass/Vol] 4.7 g/dL 3.4 - 5.0 g/dL [facility] ALP [Catalytic activity/Vol] 78 U/L 33 - 120 U/L [facility] ALT With P-5'-P [Catalytic activity/Vol] 76 U/L High 10 - 52 U/L [facility] Comment on above: Patients treated wit h Sulfasalazine may generate falsely decreased results for ALT. Anion gap [Moles/Vol] 12 mmol/L 10 - 2 0 mmol/L [facility] AST With P-5'-P [Catalytic activity/Vol] 32 U/L 9 - 39 U/L [place] [facility] Bilirubin [Mass/Vol] 0.9 mg/dL 0.0 - 1 .2 mg/dL [facility] Calcium [Mass/Vol] 9.7 mg/dL 8.6 - 10. 3 mg/dL [facility] Chloride [Moles/Vol] 106 mmol/L 98 - 10 7 mmol/L [facility] CO2 [Moles/Vol] 23 mmol/L 21 - 32 mmol/L [facility] Creatinine [Mass/Vol] 0.96 mg/dL 0.50 - 1.30 mg/dL [facility] eGFR - PINF [facility] Comment on above: Calculations of may mated GFR are performed using the 2020 CKD-EPI Study Refit equation without the race variable for the IDMS-Traceable creatinine methods. https://jasn.asnjournals.org/content//09/22/ASN.034 4607644 Glucose [Mass/Vol] 107 mg/dL High 74 - 99 mg/dL [facility] Interpretation and review of laboratory results Abnormal [facility] Potassium [Moles/Vol] 3.9 mmol/L 3.5 - 5.3 mmol/L [facility] Protein [Mass/Vol] 6.8 g/dL 6.4 - 8.2 g/dL [facility] Sodium [Moles/Vol] 137 mmol/L 136 - 145 mmol/L [facility] Urea nitrogen [Mass/Vol] 11 mg/dL 6 - 23 mg/dL [facility] Albumin BCP dye [Mass/Vol] 4.7 g/dL Normal 3.4-5.0 [facility] Comment on above: Performed By: #### 2 4323-8 #### IRENE HULL ([id number]) [facility] ([facility]) [address] [place] [address] 39794 ALP [Catalytic activity/Vol] 78 U/L Normal 33-120 [facility] Comment on above: Performed By: #### 2 4323-8 #### IRENE HULL ([id number]) [facility] ([facility]) [address] [place] [address] 75682 ALT With P-5'-P [Catalytic activity/Vol] 76 U/L High 10-52 [facility] Comment on above: Result Comment: Radha ents treated with Sulfasalazine may generate falsely decreased results for ALT. Performed By: #### 2 4323-8 #### IRENE UHLL ([id number]) [facility] ([facility]) [address] [place] [address] 74220 Anion gap [Moles/Vol] 12 mmol/L Normal 10-20 [facility] Comment on above: Performed By: #### 2 4323-8 #### IRENE HULL ([id number]) [facility] ([facility]) [address] [place] [address] 04790 AST With P-5'-P [Catalytic activity/Vol] 32 U/L Normal 9-39 [facility] Comment on above: Performed By: #### 2 4323-8 #### IRENE HULL ([id number]) [facility] ([facility]) [address] [place] [address] Bilirubin [Mass/Vol] 0.9 mg/dL Normal 0.0-1.2 [facility] Comment on above: Performed By: #### 2 4323-8 #### IRENE HULL ([id number]) [facility] ([facility]) [address] [place] [address] Calcium [Mass/Vol] 9.7 mg/dL Normal 8.6-10.3 [facility] Comment on above: Performed By: #### 2 4323-8 #### IRENE HULL ([id number]) [facility] ([facility]) [address] [place] [address] 15947 Chloride [Moles/Vol] 106 mmol/L Normal 98-107 [facility] Comment on above: Performed By: #### 2 4323-8 #### IRENE HULL ([id number]) [facility] ([facility]) [address] [place] [address] CO2 [Moles/Vol] 23 mmol/L Normal 21-32 [facility] Comment on above: Performed By: #### 2 4323-8 #### IRENE HULL ([id number]) [facility] ([facility]) [address] [place] [address] Creatinine [Mass/Vol] 0.96 mg/dL Normal 0.50-1.30 [facility] Comment on above: Performed By: #### 2 4323-8 #### IRENE HULL ([id number]) [facility] ([facility]) [facility] [place] [address] GFR/1.73 sq M.predicted MDRD (S/P/Bld) [Vol rate/Area] mL/min/{1.73_m2} Normal >60 [facility] Comment on above: Result Comment: Calc ulations of estimated GFR are performed using the 2020 CKD-EPI Study Refit equation without the race variable for the IDMS-Traceable creatinine methods. https://jasn.asnjournals.org/content//ASN.365 6953785 Performed By: #### 2 4323-8 #### IRENE HULL ([id number]) [facility] ([facility]) [address] [place] [address] 83418 Glucose [Mass/Vol] 107 mg/dL High 74-99 [facility] Comment on above: Performed By: #### 2 4323-8 #### IRENE HULL ([id number]) [facility] ([facility]) [address] [place] [address] 66730 Potassium [Moles/Vol] 3.9 mmol/L Normal 3.5-5.3 [facility] Comment on above: Performed By: #### 2 4323-8 #### IRENE HULL ([id number]) [facility] ([facility]) [address] [place] [address] 73939 Protein [Mass/Vol] 6.8 g/dL Normal 6.4-8.2 [facility] Comment on above: Performed By: #### 2 4323-8 #### IRENE HULL ([id number]) [facility] ([facility]) [address] [place] [address] 90480 Sodium [Moles/Vol] 137 mmol/L Normal 136-145 [facility] Comment on above: Performed By: #### 2 4323-8 #### IRENE HULL ([id number]) [facility] ([facility]) [address] [place] [address] 02187 Urea nitrogen [Mass/Vol] 11 mg/dL Normal 6-23 [facility] Comment on above: Performed By: #### 2 4323-8 #### IRENE HULL ([id number]) [facility] ([facility]) [address] [place] [address] 95109 Lipaseon 03-20-2025 Lipase [Catalytic activity/Vol] 11 U/L 9 - 82 U/L [facility] Lipase [Catalytic activity/V ol]on 03-20-2025 Interpretation and review of laboratory results Normal [facility] Venipuncture immedia tely after or during the administration of Metamizole may lead to falsely low results. Testing should be performed immediately prior to Metamizole dosing. [facility] Triacylglycerol lipaseon Lipase [Catalytic activity/Vol] 11 U/L Normal 9-82 [facility] Comment on above: Order Comment: Venip uncture immediately after or during the administration of Metamizole may lead to falsely low results. Testing should be performed immediately prior to Metamizole dosing. Performed By: #### 3 040-3 #### BONILLA DELLA ([id number]) [facility] ([facility]) [address] [place] [address] [place] 03-19-2025 KIRAN Telephone (AGGENS4) ----- AMADO MARINELLI ([id number]) 1990 M Date Time Provider Department 03/19/25 HARRIET RIVERA4 During your visit today, we recorded the following information about you: Parris Marin LPN 03/19/2025 2:53 PM Signed Woman that states she is patient's fiance Yoly Martel called to say patient was taken to snf yesterday and they are not feeding him. Call was placed on hold and somehow disconnected. Yoly is currently not listed as an emergency contact or included on patient HIPAA form. No further contact has been made with caller. TOVA Reece Shannon M, RN 03/20/2025 9:15 AM Signed Received a phone call from the answering service 0824 am to inform us that an Yoly Walls called on pt's behalf late last night. She reported to the skin peeling machine operator that her fiance (the pt) states he is having pain d/t hernia. She reports that he is unable to even drink water. Dr. Rivera was paged and did not return call. Advised the skin peeling machine operator that the caller is not listed as an emergency contact or on HIPAA list in this pt's chart. Pt is currently incarcerated. Product Safety Engineer will make note that fiance is not listed in pt's chart Tex Hartman RN, BSN Bariatric Rn Lactation Allergies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 This examination was interpreted and the report reviewed and electronically signed by: OBDULIA GUERRERO MD on Feb 10 2025 3:43PM EST [email or web address] * * *Final Report* * * DATE OF EXAM: Feb 10 2025 2:51PM AWX 5378 - XR ESOPHAGRAM / PROCEDURE REASON: Gastroesophageal reflux disease, unspecified whether esophagitis present * * * * Physician Interpretation * * * * EXAM: XR ESOPHAGRAM EXAM DATE: 02/10/2025 2:51 PM CLINICAL HISTORY: Gastroesophageal reflux disease, unspecified whether esophagitis present COMPARISON: None TECHNIQUE: A double contrast esophagram was performed. The patient ingested 120 mL EZHD, 177 mL EZPAQUE, 4 mL EZGAS, and 1 EZDISK. Total Fluoroscopy Time: 0:50 min:sec 59 images obtained. Mauro Jay RPA performed the exam. RESULT: No laryngeal penetration or aspiration. No esophageal stricture. There was a small hiatal hernia. Barium tablet easily entered the stomach. [facility]GO Provider, [facility] - 02/10/2025 * * *Final Report* * * DATE OF EXAM: Feb 10 2025 2:51PM AWX 5378 - XR ESOPHAGRAM / PROCEDURE REASON: Gastroesophageal reflux disease, unspecified whether esophagitis present * * * * Physician Interpretation * * * * EXAM: XR ESOPHAGRAM EXAM DATE: 02/10/2025 2:51 PM CLINICAL HISTORY: Gastroesophageal reflux disease, unspecified whether esophagitis present COMPARISON: None TECHNIQUE: A double contrast esophagram was performed. The patient ingested 120 mL EZHD, 177 mL EZPAQUE, 4 mL EZGAS, and 1 EZDISK. Total Fluoroscopy Time: 0:50 min:sec 59 images obtained. Mauro Jay RPA performed the exam. RESULT: No laryngeal penetration or aspiration. No esophageal stricture. There was a small hiatal hernia. Barium tablet easily entered the stomach. IMPRESSION IMPRESSION: Small hiatal hernia. Book Canvasser: [facility] Transcribe Date/Time: Feb 10 2025 3:40P Dictated by : OBDULIA GUERRERO MD This examination was interpreted and the report reviewed and electronically signed by: OBDULIA GUERRERO MD on Feb 10 2025 3:43PM EST [facility] Radiology Study observation (narrative) [facility] XR Esophagus Views W contras t POOrdered By: [facility] Provider on 02-10-2025 [facility] XR SHLDR >/=3V AP/ANNITA AP/OTH R LTon 02-10-2025 XR SHLDR >/=3V AP/ANNITA AP/OTHR LT * * *Final Report* * * DATE OF EXAM: Feb 10 2025 4:15PM MDX 5252 - XR SHLDR >/=3V AP/ANNITA AP/OTHR LT / PROCEDURE REASON: Trauma * * * * Physician Interpretation * * * * TITLE: XR SHLDR >/=3V AP/ANNITA AP/OTHR LT CLINICAL INDICATION: Trauma with pain TECHNIQUE: 3 view radiographic study of the left shoulder COMPARISON: None FINDINGS: No acute fracture or dislocation identified. Acromioclavicular joint intact. No radiopaque foreign body. IMPRESSION: No radiographic evidence of acute osseous injury Book Canvasser: [facility] Transcribe Date/Time: Feb 10 2025 4:18P Dictated by : ISRAEL HANLEY MD This examination was interpreted and the report reviewed and electronically signed by: ISRAEL HANLEY MD on Feb 10 2025 4:19PM EST [id number] Normal [facility] aPTT PPPon 02-10-2025 aPTT Coag (PPP) [Time] 30.0 s Normal 23.0-32.4 [facility] Comment on above: Order Comment: Speci men Type: BLOOD SPECIMEN Ordering Facility: [facility] Address: [address] [place] [address] Performed By: #### 1 4979-9, 20949-7 #### [facility] CLIA [id number] [address] [place] [address] [facility] Shoulder min 2 Viewson 02-09 Shoulder min 2 Views [facility] Imaging Services [address] [place], [place] [id number] Shoulder min 2 Views MR#: [id number] Acct: [id number] Name: AMADO MARINELLI Rep #: [id number] : 1990 M 34 From: Rick Larkin MD PCP: Jennifer Mathur, [facility], DITCHING 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 PROCEDURE: SHOULDER MIN 2 VIEWS 02/09/2025 REASON FOR EXAM: FALL TECHNIQUE: Four views of the left shoulder. COMPARISON: None. FINDINGS: No evidence of acute fracture or dislocation. Soft tissues are unremarkable. RAD/Shoulder min 2 Views IMPRESSION: No acute osseous abnormalities. Reading Location: [id number] CC: [facility] DITCHING MACHINE ENGINEER-C Jennifer Mathur; ED PHYSICIAN PROVIDER Book Canvasser: Signed [facility] Telephone (AGGENS4) ----- AMADO MARINELLI ([id number]) 1990 M Date Time Provider Department 02/03/25 HARRIET RIVERA4 During your visit today, we recorded the following information about you: Bipin Wei RN 02/03/2025 4:38 PM Signed Patient called and informed me he is done with his testing and he does not understand what his appointment is for on 02/10/25. I reminded him that he no showed for his UGI x-ray in November and we got it rescheduled at [facility]. Patient apologized and wrote down the address I gave him. I reminded him to be NPO for 4 hours before the testing. Patient agreed. Patient confirmed his appointment on 02/12/[address] Rivera. He thanked me for the information. Bipin Wei RN Allergies As of Date: 02/03/2025 Noted Allergy Reaction IBUPROFEN 02/19/2015 8 - GI Upset NAPROXEN 02/19/2015 8 - GI Upset PENICILLINS 04/23/2013 14 - Other: See Comments Comments: Throat started to close up. Date Reviewed: 01/23/2025 Reviewed by: Carrie Rainey RN - Fully Assessed Reason for Visit: Patient Question [0727] Prescriptions as of 02/03/2025 - aspirin, enteric coated (ASPIRIN, ENTERIC COATED) 81 mg EC tablet Take 1 tablet by mouth every afternoon. - hydrOXYzine HCl (ATARAX) 50 mg tablet Take 1 tablet by mouth every 12 hours. - omeprazole (PRILOSEC) 40 mg capsule Take 1 capsule by mouth every 12 hours. - QUEtiapine XR (SEROQUEL XR) 50 mg Tb24 Take 50 mg by mouth daily at bedtime. - traZODone (DESYREL) 50 mg tablet Take 50 mg by mouth daily at bedtime. - ALBUTEROL INHALATION Inhale as instructed. - keTORolac (TORADOL) 10 mg tablet Take 1 tablet by mouth every 6 hours as needed. Meds Comments as of 06/10/2023: June 10, 2023: Patient reports no changes to medications in the last 30 days. Obdulia Patel RN Problem List As Of Date 02/03/2025 Noted Resolved Genital herpes [A60.00] 04/10/2013 ADHD (attention deficit hyperactivity disorder)* Depression [F32.A] Tobacco use disorder [F17.200] Hand laceration involving tendon, initial encou*02/18/2018 Hand laceration involving tendon, left, subsequ*02/18/2018 Bipolar disorder (HCC) [F31.9] Pre-op examination [Z01.818] 01/23/2025 Gastroesophageal reflux disease [K21.9] 01/23/2025 Asthma ([facility]) [J45.909] 01/23/2025 Encounter Status:Closed by BIPIN WEI on 02/03/25 [facility] CNCOon 01-26-2025 CNCO Letter Text [facility] ANES POSTPROC EVALon 025 ANES POSTPROC EVAL HNO ID: [id number] Author: TEOFILO VEGA MD Service: Anesthesiology Author Type: Anesthesiologist Type: Anesthesia Postprocedure Evaluation Filed: 01/23/2025 11:48 Note Text: POST ANESTHESIA EVALUATION NOTE : 1990 Procedure Summary Date: 01/23/25 Room / Location: [facility] Anesthesia Start: 1055 Anesthesia Stop: 1120 Procedure: EGD - THERAPEUTIC, EUS, OR TUBE INTERVENTIONS Diagnosis: Gastroesophageal reflux disease, unspecified whether esophagitis present (Heartburn) Scheduled Providers: Harriet Rivera MD Responsible Provider: Teofilo Vega MD Anesthesia Type: MAC ASA Status: 3 Anesthesia Type: MAC Last Vitals Vitals Value Taken Time BP 119/91 01/23/25 1147 Temp 36.2 ?C (97.1 ?F) 01/23/25 1118 Pulse 65 01/23/25 1147 Resp 13 01/23/25 1147 SpO2 98 % 01/23/25 1147 Vitals shown include unfiled device data. Post Anesthesia Patient Status Patient Evaluation: PACU. PACU/ICU Patient Condition: stable. Anticipated Disposition: phase 2 then home. Neurological Status: aware and responsive. Pulmonary Status: breathing comfortably on room air Airway Control: returned to baseline unsupported. Cardiovascular Status: stable. Pain Management: clinically adequate Postoperative Hydration: acceptable. Intraoperative Events: no significant anesthesia events Recommendation: continue current plan of care. Anesthesia Observations No Documentation SIGNATURE: Teofilo Vega MD PATIENT NAME: Amado Marinelli DATE: January 23, 2025 TIME: 11:48 AM CSN: [id number] [facility] ANES PRE-OPon 01-23-2025 ANES PRE-OP HNO ID: [id number] Author: TEOFILO VEGA MD Service: Anesthesiology Author Type: Anesthesiologist Type: Anesthesia Preprocedure Evaluation Filed: 01/23/2025 08:01 Note Text: ANESTHESIOLOGY DAY OF SURGERY NOTE : 1990 Procedure Information Date/Time: 01/23/25 1000 Scheduled providers: Harriet Rivera MD Procedure: EGD - THERAPEUTIC, EUS, OR TUBE INTERVENTIONS Location: [facility] Estimated body mass index is 29.43 kg/m? as calculated from the following: Height as of this encounter: 182.9 cm (6'). Weight as of this encounter: 98.4 kg (217 lb). Most recent hematocrit and potassium results: Hematocrit 44.9 03/14/2024 Potassium 3.9 03/14/2024 Relevant Problems GI (+) Gastroesophageal reflux disease I - PHYSICAL EVALUATION AIRWAY Patient intubated: No. Tracheostomy tube not present Mallampati: III. TM distance: >3 FB. Neck ROM: full ROM without neurological symptoms. Mouth opening: adequate. Short neck: no. Thick neck: no DENTAL Dental findings: poor dentition, broken tooth, missing tooth/teeth and chipped. II - ANESTHESIA PLAN ASA Score: 3 Anesthetic Plan: MAC NPO Status: adequate Beta Keren Monitoring Plan Monitoring plan: standard ASA. Post Procedure Analgesic Plan Postoperative analgesic plan: multimodal analgesia. Informed Consent Anesthetic risks, benefits, alternatives, personnel and consent discussed: yes. Patient / Responsible Constitution Party agrees to proceed: yes Patient / Surrogate agrees to blood products: blood products not planned Vitals Value Taken Time BP 122/79 01/23/25 0756 Pulse 66 01/23/25 0756 Resp 11 01/23/25 0756 Temp 36.8 ?C (98.3 ?F) 01/23/25 0756 SpO2 99 % 01/23/25 0756 No current facility-administered medications on file as of 01/23/2025. Outpatient Medications as of 01/23/2025 Medication Sig aspirin, enteric coated (ASPIRIN, ENTERIC COATED) 81 mg EC tablet Take 1 tablet by mouth every afternoon. traZODone (DESYREL) 50 mg tablet Take 50 mg by mouth daily at bedtime. ALBUTEROL INHALATION Inhale as instructed. hydrOXYzine HCl (ATARAX) 50 mg tablet Take 1 tablet by mouth every 12 hours. omeprazole (PRILOSEC) 40 mg capsule Take 1 capsule by mouth every 12 hours. QUEtiapine XR (SEROQUEL XR) 50 mg Tb24 Take 50 mg by mouth daily at bedtime. (Patient not taking: Reported on 10/23/2024) keTORolac (TORADOL) 10 mg tablet Take 1 tablet by mouth every 6 hours as needed. (Patient not taking: Reported on 10/23/2024) I have interviewed and examined the patient. I have reviewed the medical record and/or the pre-anesthesia evaluation, pertinent labs, and test results. This contains updated information obtained within 48 hours of Surgery/Procedure. SIGNATURE: Teofilo Vega MD PATIENT NAME: Amado Marinelli DATE: January 23, 2025 TIME: 8:00 AM CSN: [id number] [facility] 01-23-2025 [facility] Telephone (AGGENS4) ----- IRENEAMADO Durbin ([id number]) 1990 Date Time Provider Department 01/23/25 HARRIET RIVERA A[facility]4 During your visit today, we recorded the following information about you: Bipin Wei RN 01/23/2025 12:50 PM Signed I called patient and reminded him he no showed for his UGI on 12/05/24 and he will need to complete this test before his follow up appointment with Dr. Rivera on 02/12/25. Patient said he would reschedule it and agreed to be transferred to Centralized Scheduling. Before I transferred the call patient is requesting a letter to be sent to Judge Gunderson at [facility]. Patient is supposed to report to snf for 30 days starting 02/09/25. Judge Gunderson told the patient he will reassign the report date if he receives a letter from his doctor with his appointment dates. Patient stated he will get me a fax number to submit it to Judge Gunderson. I told him I will share this info with Dr. Rivera. I asked the patient if he was still smoking and he replied, I'm smoking my last cigarette now so I can take the nicotine test in a week. I informed him he needs to be smoke free fro 4 weeks before taking the nicotine test. I transferred the patient to Centralized Scheduling. Bipin Wei RN Allergies As of Date: 01/23/2025 Noted Allergy Reaction IBUPROFEN 02/19/2015 8 - GI Upset NAPROXEN 02/19/2015 8 - GI Upset PENICILLINS 04/23/2013 14 - Other: See Comments Comments: Throat started to close up. Date Reviewed: 01/23/2025 Reviewed by: Carrie Rainey RN - Fully Assessed Reason for Visit: Follow Up [171] Prescriptions as of 01/23/2025 - aspirin, enteric coated (ASPIRIN, ENTERIC COATED) 81 mg EC tablet Take 1 tablet by mouth every afternoon. - hydrOXYzine HCl (ATARAX) 50 mg tablet Take 1 tablet by mouth every 12 hours. - omeprazole (PRILOSEC) 40 mg capsule Take 1 capsule by mouth every 12 hours. - QUEtiapine XR (SEROQUEL XR) 50 mg Tb24 Take 50 mg by mouth daily at bedtime. - traZODone (DESYREL) 50 mg tablet Take 50 mg by mouth daily at bedtime. - ALBUTEROL INHALATION Inhale as instructed. - keTORolac (TORADOL) 10 mg tablet Take 1 tablet by mouth every 6 hours as needed. Meds Comments as of 06/10/2023: June 10, 2023: Patient reports no changes to medications in the last 30 days. Obdulia Patel RN Problem List As Of Date 01/23/2025 Noted Resolved Genital herpes [A60.00] 04/10/2013 ADHD (attention deficit hyperactivity disorder)* Depression [F32.A] Tobacco use disorder [F17.200] Hand laceration involving tendon, initial encou*02/18/2018 Hand laceration involving tendon, left, subsequ*02/18/2018 Bipolar disorder (HCC) [F31.9] Pre-op examination [Z01.818] 01/23/2025 Gastroesophageal reflux disease [K21.9] 01/23/2025 Asthma (HCC) [J45.909] 01/23/2025 Encounter Status:Closed by BIPIN WEI on 01/23/25 [facility] EGD Study observation Emerita perdue 01-23-2025 [facility] Gastrointestinal Endoscopy Patient Name: Amado Marinelli Procedure Date: 01/23/2025 10:46 AM Date of : 1990 Admit Type: Outpatient Room: [place] [address] Gender: Male Note Status: Finalized Attending MD: Harriet Rivera MD, [id number] Procedure: Upper GI endoscopy Indications: Heartburn Providers: Harriet Rivera MD Patient Profile: Refer to note in patient chart for documentation of history and physical. Patient has symptoms of chronic heartburn. Referring Physician: Harriet Rivera MD (Referring MD) Medicines: Monitored Anesthesia Care Complications: No immediate complications. Procedure: Pre-Anesthesia Assessment: - Prior to the procedure, a History and Physical was performed, and patient medications and allergies were reviewed. The patient's tolerance of previous anesthesia was also reviewed. The risks and benefits of the procedure and the sedation options and risks were discussed with the patient. All questions were answered, and informed consent was obtained. Prior Anticoagulants: The patient has taken no anticoagulant or antiplatelet agents. ASA Grade Assessment: II - A patient with mild systemic disease. After reviewing the risks and benefits, the patient was deemed in satisfactory condition to undergo the procedure. After obtaining informed consent, the endoscope was passed under direct vision. Throughout the procedure, the patient's blood pressure, pulse, and oxygen saturations were monitored continuously. The Endoscope was introduced through the mouth, and advanced to the third part of duodenum. I was present and participated during the entire procedure, including non-amaro portions, and during the administration and monitoring of Moderate Sedation. The upper GI endoscopy was accomplished without difficulty. The patient tolerated the procedure well. Moderate Sedation: Exam was performed under monitored anesthesia care (MAC) Findings: LA Grade B (one or more mucosal breaks greater than 5 mm, not extending between the tops of two mucosal folds) esophagitis with no bleeding was found 39 cm from the incisors. The FUENTES capsule with delivery system was introduced through the mouth and advanced into the esophagus, such that the pH capsule was positioned 36 cm from the incisors, which was 6 cm proximal to the GE junction. The pH capsule was then deployed and attached to the esophageal mucosa. The delivery system was then withdrawn. Endoscopy was utilized for probe placement and diagnostic evaluation. The gastroesophageal flap valve was visualized endoscopically and classified as Hill Grade IV (no fold, wide open lumen, hiatal hernia present). Biopsies were taken with a cold forceps for Helicobacter pylori testing. The examined duodenum was normal. Estimated Blood Loss: Estimated blood loss: none. Impression: - LA Grade A reflux esophagitis with no bleeding. - Gastroesophageal flap valve classified as Hill Grade III (minimal fold, loose to endoscope, hiatal hernia likely). Biopsied. - Normal examined duodenum. - The FUENTES capsule was deployed. Recommendation: - Await pathology results. - Return to my office as previously scheduled. - Discharge patient to home (ambulatory). - Continue present medications. - Resume previous diet. - The patient is not currently taking anticoagulant or antiplatelet agents. Procedure Code(s): --- Professional --- 13159, Esophagogastroduodenoscop y, flexible, transoral; with biopsy, single or multiple --- Technical --- 45077, 59, Esophagogastroduodenoscop y, flexible, transoral; with biopsy, single or multiple 9 (more content not included)... PROVATION [facility] Radiology Study observation (narrative) [facility] HISTORY PHYSICALon HISTORY PHYSICAL HNO ID: [id number] Author: LOAN CARABALLO APRN.CNP Service: Anesthesiology Author Type: Nurse Practitioner Type: H&P Filed: 01/23/2025 08:17 Note Text: HISTORY AND PHYSICAL EXAMINATION SERVICE DATE: 01/23/2025 SERVICE TIME: 7:55 AM PRIMARY CARE PHYSICIAN: Dacia Camejo MD REASON FOR VISIT: The reason for this visit is To perform a comprehensive review of the patients past medical history, assess their current health status and obtain any additional testing required based on anesthesia guidelines. To assess and identify potential anesthesia problems, particularly those that may suggest potential complications or contraindications to the planned procedure. The patient has the following: ACTIVE PROBLEM LIST Genital Herpes Adhd (Attention Deficit Hyperactivity Disorder) Depression Tobacco Use Disorder Hand Laceration Involving Tendon, Initial Encounter Hand Laceration Involving Tendon, Left, Subsequent Encounter Bipolar Disorder (Hcc) Pre-Op Examination Gastroesophageal Reflux Disease Asthma (Hcc) Subjective CHIEF COMPLAINT: Preoperative Examination HPI: Patient present to [facility] for the above procedure. Patient here for routine Upper GI Endoscopy screening. Patient reports N/V/, syncopal episodes after eating. Reports attempted robotic Maxwell fundoplication on 09/15/24 which was aborted due to the finding of a large replaced abnormal vessel. Denies any abdominal pain. Denies any melena, hematochezia, or hematemesis. Patient denies any other problems at this time. Denies any family history of Colon cancer or other Gastric ca. Patient agreed to planned procedure. METS: Climb a flight of stairs or walk up a hill (5.50 METs) Patient denies any CP/SOB with above activity. PAST MEDICAL HISTORY Diagnosis Date ADHD (attention deficit hyperactivity disorder) Asthma ([facility]) Bipolar disorder ([facility]) Depression [facility], history of suicide attempt Genital herpes 04/2013 GERD (gastroesophageal reflux disease) Polysubstance abuse ([facility]) meth, heroin. Oversoe 07/2019 [facility] Tobacco use disorder PAST SURGICAL HISTORY Procedure Laterality Date EXPLORATORY OF ABDOMEN 09/15/2024 aborted Maxwell; Dr. Rodriguez HAND SURGERY HX Left 02/18/2018 FAMILY HISTORY Problem Relation Age of Onset COPD Father Cancer Father of lung cancer Cancer Paternal Grandfather of lung cancer Cancer Paternal Uncle of lung cancer Psychiatry Mother depression Diabetes Maternal Grandmother SOCIAL HISTORY: Social History Tobacco Use Smoking status: Every Day Current packs/day: 0.50 Average packs/day: 0.5 packs/day for 5.0 years (2.5 ttl pk-yrs) Types: Cigarettes Smokeless tobacco: Former Types: Chew Tobacco comments: started smoking 17yo Smokes 0.25 PPD since 11/2024 Smoked 1-2 PPD x 17 years Vaping Use Vaping status: Never Used Substance Use Topics Alcohol use: No Drug use: Not Currently Types: Heroin, Amphetamines Prior to Admission medications as of 01/23/25 0754 Medication Sig Last Dose Taking aspirin, enteric coated (ASPIRIN, ENTERIC COATED) 81 mg EC tablet Take 1 tablet by mouth every afternoon. 01/22/2025 Yes traZODone (DESYREL) 50 mg tablet Take 50 mg by mouth daily at bedtime. Past Week Yes ALBUTEROL INHALATION Inhale as instructed. Past Week Yes hydrOXYzine HCl (ATARAX) 50 mg tablet Take 1 tablet by mouth every 12 hours. omeprazole (PRILOSEC) 40 mg capsule Take 1 capsule by mouth every 12 hours. QUEtiapine XR (SEROQUEL XR) 50 mg Tb24 Take 50 mg by mouth daily at bedtime. Patient not taking: Reported on 10/23/2024 keTORolac (TORADOL) 10 mg tablet Take 1 tablet by mouth every 6 hours as needed. Patient not taking: Reported on 10/23/2024 Medication Comments documented by Obdulia Patel RN on 06/10/2023 at 1405. June 10, 2023: Patient reports no changes to medications in the last 30 days. Obdulia Patel RN ALLERGIES Allergen Reactions Ibuprofen GI Upset Naproxen GI Upset Penicillins Other: See Comments Throat started to close up. COMPLETE REVIEW OF SYSTEMS: PAIN ASSESSMENT: Pain Pain Level: 0 Pain Assessment: Assessment Tool: Verbal (Numeric Rating or Visual Analog Scale) General: No weight loss, malaise or fevers. Neuro: No neurological symptoms or problems; no hx of seizure or stroke Respiratory: No history of current cough, wheezing, dyspnea, or recent pneumonia; no hx of COPD, or [place], + smoker , + asthma, Cardiovascular: No history of HTN requiring medication, no history of chest pain, palpitations, CHF, AR, cardiac surgery or stents GI: see HPI : No history of dysuria, frequency or incontinence, stones or chronic kidney disease Endocrine: Negative for Diabetes or thyroid disease Hematology: No history of bleeding or clotting disorder. No history of hematological symptoms or problems. Oncology: No history of oncological symptoms or problems. Psych:+ Bipolar, depre (more content not included)... [facility] NURSING PROGon 01-23-2025 NURSING PROG HNO ID: [id number] Author: MADAN CHAVEZ RN Service: Nursing Author Type: Registered Nurse Type: Nursing Progress Note Filed: 01/23/2025 10:39 Note Text: The patient was brought into the procedure room and a time out was done. Patient denies taking any muscle relaxers or blood thinners. Patient denies any surgeries or injuries to nose. After confirmation of potential allergies, a topical analgesic was used to numb the left nares followed by the trans-nasal insertion of a High Resolution Manometry catheter. Pressure bands of the UES and LES were observed on the color contour. The patient was instructed to take a deep breath to verify placement of catheter, diaphragmatic pinch noted on inspiration. The patient was assisted to left lateral position and the catheter stabilized. The patient was encouraged to relax while acclimating to the catheter for approximately 5 minutes. A 30 second baseline pressure was obtained to identify the UES and LES followed by a series of ten wet swallows, using 5mL of room temperature normal saline to assess esophageal motility. At the conclusion of the procedure the catheter was removed. The patient tolerated the procedure well. Patient was informed of possible congestion and minimal nose bleeding following procedure.No heme noted when catheter removed. [facility] Pathology biopsy report Aleks (Tiss)on 01-23-2025 AP DISCLAIMER [facility] Comment on above: Order Comment: Dale haas Type: TISSUE SPECIMENOrdering Facility: [facility] Address: [address] [place] [address] Result Comment: Maria L jerez Developed Test (LDT) Disclaimer: Performance characteristics of immunohistochemical, immunofluorescent, and chromogenic in-situ hybridization tests have been determined by the performing laboratory within [facility]'s [facility] Pathology and Laboratory Medicine Department ([facility], [facility], [facility], [facility], [facility], [facility], or [facility]) in a manner consistent with CLIA requirements. One or more of these tests may not have been cleared or approved by the FDA. [facility] is regulated under CLIA as qualified to perform high-complexity testing. These tests are used for clinical purposes. These should not be regarded as investigational or for research. Positive and negative controls stain appropriately. Performed By: #### 6 6121-5 ####[facility] LABORATORYCLIA [id number] [address] [place] CASE REPORT [facility] Comment on above: Order Comment: Dale haas Type: TISSUE SPECIMENOrdering Facility: [facility] Address: [address] [address] Result Comment: [facility] Pathology Report Case: [id number] Authorizing Provider: Harriet Rivera MD Collected: 01/23/2025 11:01 AM Ordering Location: [facility] Received: 01/23/2025 02:54 PM Pathologist: Pieter Lindo MD Specimen: Stomach, Antrum, Biopsy Performed By: #### 6 6121-5 ####[facility] LABORATORYCLIA [id number] [address] CLINICAL HISTORY Heartburn [facility] Comment on above: Order Comment: Speci men Type: TISSUE SPECIMENOrdering Facility: [facility] Address: [address] [place] [address] Performed By: #### 6 6121-5 ####[facility] LABORATORYCLIA [id number] [address] FINAL DIAGNOSIS [facility] Comment on above: Order Comment: Speci men Type: TISSUE SPECIMENOrdering Facility: [facility] Address: [address] [place] [address] Result Comment: Kulwant betts, antrum, biopsy: - No pathologic abnormalities. at 1110 EDT Performed By: #### 6 6121-5 ####[facility] LABORATORYCLIA [id number] [address] FINAL PERFORMING LAB Normal [facility] Comment on above: Order Comment: Speci men Type: TISSUE SPECIMENOrdering Facility: [facility] Address: [address] [place] [address] Result Comment: Diag nostic interpretation performed at: [facility], [address] [address] CLIA# [id number] Control And Recovery Special Tactics: Pieter Lindo MD Performed By: #### 6 6121-5 ####[facility] LABORATORYCLIA [id number] [address] GROSS DESCRIPTION [facility] Comment on above: Order Comment: Speci men Type: TISSUE SPECIMENOrdering Facility: [facility] Address: [address] [place] [address] Result Comment: A. S syedach, Antrum, Biopsy Received in formalin labeled stomach antrum biopsy is one piece of caceres, soft tissue measuring 0.8 x 0.2 x 0.2 cm. Totally submitted in one cassette. Gross examination performed at [facility], [address] [id number] [facility] January 23, 2025 3:11 PM Performed By: #### 6 6121-5 ####[facility] LABORATORYCLIA [id number] [place] [address] [place] Upper GI endoscopyon 16-2 025 Upper GI endoscopy [facility] Gastrointestinal Endoscopy Patient Name: Amado Marinelli Procedure Date: 01/23/2025 10:46 AM Date of : 1990 Admit Type: Outpatient Room: [place] [address] Gender: Male Note Status: Finalized Attending MD: Harriet Rivera MD, [id number] Procedure: Upper GI endoscopy Indications: Heartburn Providers: Harriet Rievra MD Patient Profile: Refer to note in patient chart for documentation of history and physical. Patient has symptoms of chronic heartburn. Referring Physician: Harriet Rivera MD (Referring MD) Medicines: Monitored Anesthesia Care Complications: No immediate complications. Procedure: Pre-Anesthesia Assessment: - Prior to the procedure, a History and Physical was performed, and patient medications and allergies were reviewed. The patient's tolerance of previous anesthesia was also reviewed. The risks and benefits of the procedure and the sedation options and risks were discussed with the patient. All questions were answered, and informed consent was obtained. Prior Anticoagulants: The patient has taken no anticoagulant or antiplatelet agents. ASA Grade Assessment: II - A patient with mild systemic disease. After reviewing the risks and benefits, the patient was deemed in satisfactory condition to undergo the procedure. After obtaining informed consent, the endoscope was passed under direct vision. Throughout the procedure, the patient's blood pressure, pulse, and oxygen saturations were monitored continuously. The Endoscope was introduced through the mouth, and advanced to the third part of duodenum. I was present and participated during the entire procedure, including non-amaro portions, and during the administration and monitoring of Moderate Sedation. The upper GI endoscopy was accomplished without difficulty. The patient tolerated the procedure well. Moderate Sedation: Exam was performed under monitored anesthesia care (MAC) Findings: LA Grade B (one or more mucosal breaks greater than 5 mm, not extending between the tops of two mucosal folds) esophagitis with no bleeding was found 39 cm from the incisors. The FUENTES capsule with delivery system was introduced through the mouth and advanced into the esophagus, such that the pH capsule was positioned 36 cm from the incisors, which was 6 cm proximal to the GE junction. The pH capsule was then deployed and attached to the esophageal mucosa. The delivery system was then withdrawn. Endoscopy was utilized for probe placement and diagnostic evaluation. The gastroesophageal flap valve was visualized endoscopically and classified as Hill Grade IV (no fold, wide open lumen, hiatal hernia present). Biopsies were taken with a cold forceps for Helicobacter pylori testing. The examined duodenum was normal. Estimated Blood Loss: Estimated blood loss: none. Impression: - LA Grade A reflux esophagitis with no bleeding. - Gastroesophageal flap valve classified as Hill Grade III (minimal fold, loose to endoscope, hiatal hernia likely). Biopsied. - Normal examined duodenum. - The FUENTES capsule was deployed. Recommendation: - Await pathology results. - Return to my office as previously scheduled. - Discharge patient to home (ambulatory). - Continue present medications. - Resume previous diet. - The patient is not currently taking anticoagulant or antiplatelet agents. Procedure Code(s): --- Professional --- 12103, Esophagogastroduodenoscop y, flexible, transoral; with biopsy, single or multiple --- Technical --- 69249, 59, Esophagogastroduodenoscop y, flexible, transoral; with biopsy, single or multiple 08833, TC, Esophagus, gastroesophageal reflux test; with mucosal attached telemetry pH electrode placement, recording, analysis and interpretation CPT copyright 2020 [employer]. All rights reserved. The codes documented in this report are preliminary and upon lead architect review may be revised to meet current compliance requirements. Attending Participation: I personally performed the entire procedure. Scope In: 11:00:49 AM Scope Out: 11:11:18 AM MD Harriet Thorpe MD 01/23/2025 11:18:14 AM This report has been signed electronically by Harriet Rivera MD Number of Addenda: 0 Note Initiated On: 01/23/2025 10:46 AM [facility] 01-09-2025 [facility] Telephone (AGGENS4) ----- AMADO MARINELLI ([id number]) 1990 M Date Time Provider Department 01/09/25 HARRIET RIVERA AGGENS4 During your visit today, we recorded the following information about you: Cara Escalante 01/09/2025 2:31 PM Signed VM received requesting a call cack. Unable to LVM for patient - VM not set up. [employer] message sent to patient. Allergies As of Date: 01/09/2025 Noted Allergy Reaction IBUPROFEN 02/19/2015 8 - GI Upset NAPROXEN 02/19/2015 8 - GI Upset PENICILLINS 04/23/2013 14 - Other: See Comments Comments: Throat started to close up. Date Reviewed: 10/23/2024 Reviewed by: Harriet Rivera MD - Fully Assessed Prescriptions as of 01/09/2025 - aspirin, enteric coated (ASPIRIN, ENTERIC COATED) 81 mg EC tablet Take 1 tablet by mouth every afternoon. - hydrOXYzine HCl (ATARAX) 50 mg tablet Take 1 tablet by mouth every 12 hours. - omeprazole (PRILOSEC) 40 mg capsule Take 1 capsule by mouth every 12 hours. - QUEtiapine XR (SEROQUEL XR) 50 mg Tb24 Take 50 mg by mouth daily at bedtime. - traZODone (DESYREL) 50 mg tablet Take 50 mg by mouth daily at bedtime. - ALBUTEROL INHALATION Inhale as instructed. - keTORolac (TORADOL) 10 mg tablet Take 1 tablet by mouth every 6 hours as needed. Meds Comments as of 06/10/2023: June 10, 2023: Patient reports no changes to medications in the last 30 days. Obdulia Patel RN Problem List As Of Date 01/09/2025 Noted Resolved Genital herpes [A60.00] 04/10/2013 ADHD (attention deficit hyperactivity disorder)* Depression [F32.A] Tobacco use disorder [F17.200] Hand laceration involving tendon, initial encou*02/18/2018 Hand laceration involving tendon, left, subsequ*02/18/2018 Bipolar disorder (HCC) [F31.9] Encounter Status:Closed by CARA ESCALANTE on 01/09/25 [facility] CNPN Telephone (AGGENS4) ----- MARINELLIAMADO Gifty ([id number]) 1990 M Date Time Provider Department 01/09/25 HARRIET RIVERAENS4 During your visit today, we recorded the following information about you: Parris MarinTOVA 01/09/2025 2:38 PM Signed Patient called in stating that he is having horrible issues with throwing up stomach acid. Patient stated that he starts the day eating 3 hard boiled eggs for breakfast as well as for lunch. Patient also has been drinking the previously suggested by Alida CHILDS Boost Breeze and Ensure clear. Patient states he is consuming large quantities of tums to also help with stomach acid and the suggested gaviscon is not helping. Patient states the burning is intense. I do not have any availability to move his Fuentes mano up on the calendar. Patient asking what else he can do. Denies diarrhea or constipation, fever or chills. Allergies As of Date: 01/09/2025 Noted Allergy Reaction IBUPROFEN 02/19/2015 8 - GI Upset NAPROXEN 02/19/2015 8 - GI Upset PENICILLINS 04/23/2013 14 - Other: See Comments Comments: Throat started to close up. Date Reviewed: 10/23/2024 Reviewed by: Harriet Rivera MD - Fully Assessed Prescriptions as of 01/13/2025 - aspirin, enteric coated (ASPIRIN, ENTERIC COATED) 81 mg EC tablet Take 1 tablet by mouth every afternoon. - hydrOXYzine HCl (ATARAX) 50 mg tablet Take 1 tablet by mouth every 12 hours. - omeprazole (PRILOSEC) 40 mg capsule Take 1 capsule by mouth every 12 hours. - QUEtiapine XR (SEROQUEL XR) 50 mg Tb24 Take 50 mg by mouth daily at bedtime. - traZODone (DESYREL) 50 mg tablet Take 50 mg by mouth daily at bedtime. - ALBUTEROL INHALATION Inhale as instructed. - keTORolac (TORADOL) 10 mg tablet Take 1 tablet by mouth every 6 hours as needed. Meds Comments as of 06/10/2023: June 10, 2023: Patient reports no changes to medications in the last 30 days. Obdulia Patel RN Problem List As Of Date 01/09/2025 Noted Resolved Genital herpes [A60.00] 04/10/2013 ADHD (attention deficit hyperactivity disorder)* Depression [F32.A] Tobacco use disorder [F17.200] Hand laceration involving tendon, initial encou*02/18/2018 Hand laceration involving tendon, left, subsequ*02/18/2018 Bipolar disorder (HCC) [F31.9] Encounter Status:Closed by PARRIS MARIN on 01/13/25 [facility] L499.0042on 12-28-2024 Trop T High Sen < 6 Normal <=22 [facility] Comment on above: Performed By: #### L 499.0042 ####[facility] [id number] [place], [address] L499.0043on 12-28-2024 Trop T High Sen Normal <=22 [facility] Comment on above: Result Comment: Canc elled via OM: Order cancelled - Patient discharged Performed By: #### L 499.0043 ####[facility] [id number] [place], [address] 12 Lead EKGon 12-27-2024 12 Lead EKG [facility] Cardiovascular Services 1761 [place] [address] 12 Lead EKG 12/27/24 2213 MR#: [id number] Acct: [id number] Name: AMADO MARINELLI Rep #: [id number] : 1990 34 From: Gabriel Arreola MD Attending Dr: Status: DEP ER Ordering Dr: Rupert Hernández MD Date: 12/27/24 Location: ED Sex: M C Admitted: Test Reason : SYNCOPE Blood Pressure : */* mmHG Vent. Rate : 77 BPM Atrial Rate : 77 BPM P-R Int : 174 ms QRS Dur : 96 ms QT Int : 406 ms P-R-T Axes : 60 24 48 degrees QTcB Int : 459 ms Normal sinus rhythm Normal ECG Confirmed by GARBIEL ARREOLA MD ([id number]), videotape editor CAROLE MONAE ([id number]) on 12/29/2024 8:38:06 AM Referred By: Rupert Hernández Confirmed By: GABRIEL ARREOLA MD 12/29/24 0838 Date Gabriel Arreola MD CC: C DITCHING MACHINE ENGINEER-C Jennifer Mathur; Dr. Rupert Hernández MD Signed Normal [facility] Absolute lymphocyte countOrd ered By: Rupert Hernández on 12-27-2024 Lymphocytes Auto (Unsp spec) [#/Vol] 2.79 10*3/uL 0.83-4.51 [facility] Absolute neutrophil countOrd ered By: Rupert Hernández on 12-27-2024 Neutrophils (Bld) [#/Vol] 2.6 10*3/uL 2.0-7.7 [facility] Anion gap in Serum or Plasma Ordered By: Rupert Hernández on 12-27-2024 Anion gap [Moles/Vol] 12 mmol/L 01-22 [facility] Automated lymphocyte count a s percentage of total leukocytesOrdered By: Rupert Hernández on 12-27-2024 Lymphocytes/100 WBC Auto (Unsp spec) 44.3 % High [facility] BUN/creatinine ratioOrdered By: Rupert Hernández on 12-27-2024 Urea nitrogen/Creatinine [Mass ratio] 14.1 mg/mg 06-29 [facility] Basic Metabolic Profile (BMP )on 12-27-2024 BUN/CRE 14.1 RATIO Normal 06-29 [facility] Comment on above: Performed By: #### L 500.2500, L501.4021, L100.0100 ####[facility] [address] [place], [address] Calcium [Mass/Vol] 9.6 mg/dL Normal 7.6-11.0 [facility] Comment on above: Performed By: #### L 500.2500, L501.4021, L100.0100 ####[facility] [address] [place], [address] Chloride [Moles/Vol] 104 mmol/L Normal 98-108 [facility] Comment on above: Performed By: #### L 500.2500, L501.4021, L100.0100 ####[facility] [address] [place], [address] CO2 [Moles/Vol] 22.3 mmol/L Normal 21.0-32.0 [facility] Comment on above: Performed By: #### L 500.2500, L501.4021, L100.0100 ####[facility] [address] [place], [address] Creatinine [Mass/Vol] 0.96 mg/dL Normal 0.70-1.20 [facility] Comment on above: Performed By: #### L 500.2500, L501.4021, L100.0100 ####[facility] [address] [place], [address] ECRCL 129.00 ml/min Normal 50-250 [facility] Comment on above: Performed By: #### L 500.2500, L501.4021, L100.0100 ####[facility] [address] [place], [address] GAP 12 Normal 5-15 [facility] Comment on above: Performed By: #### L 500.2500, L501.4021, L100.0100 ####[facility] [address] [place], [address] GFR/1.73 sq M.predicted among non-blacks MDRD (S/P/Bld) [Vol rate/Area] 107 mL/min/{1.73_m2} Normal >60 [facility] Comment on above: Result Comment: mL/m in/1.73m2 CKD-EPI Creatinine Equation (2020) Performed By: #### L 500.2500, L501.4021, L100.0100 ####[facility] [address] [place], [address] Glucose [Mass/Vol] 105 mg/dL High 70-99 [facility] Comment on above: Performed By: #### L 500.2500, L501.4021, L100.0100 ####[facility] [address] [place], [address] Potassium [Moles/Vol] 3.8 mmol/L Normal 3.3-5.1 [facility] Comment on above: Performed By: #### L 500.2500, L501.4021, L100.0100 ####[facility] [address] [place], [address] Sodium [Moles/Vol] 139 mmol/L Normal 133-145 [facility] Comment on above: Performed By: #### L 500.2500, L501.4021, L100.0100 ####[facility] [address] [place], [address] Urea nitrogen [Mass/Vol] 14 mg/dL Normal 4-19 [facility] Comment on above: Performed By: #### L 500.2500, L501.4021, L100.0100 ####[facility] [address] [place], [address] Basophil percentageOrdered B y: Rupert Hernández on 12-27-2024 Basophils/100 WBC (Bld) 1.1 % High 0-1 [facility] Brain/Head without Contrasto n 12-27-2024 Brain/Head without Contrast [facility] Imaging Services [address] [place] [address] Brain/Head without Contrast MR#: [id number] Acct: [id number] Name: AMADO MARINELLI Rep #: [id number] : 1990 M 34 From: Gee Seay DO PCP: Jennifer Mathur [facility], DITCHING MACHINE ENGINEER-C Status: REG ER Study: Brain/Head without Contrast Date of Exam: 12/09 06/04 Exam# [id number] Ordering Dr: Rupert Hernández MD PROCEDURE: BRAIN/HEAD WITHOUT CONTRAST 12/27/2024 REASON FOR EXAM: HEADACHE, TRAUMA, RECURRENT SYNCOPE, RLE WEAK TECHNIQUE: Head CT without intravenous contrast. Coronal and Sagittal reconstruction series were provided. One or more dose reduction techniques were used (e.g., Automated exposure control, adjustment of the mA and/or kV according to patient size, use of iterative reconstruction technique. RADIATION DOSE SUMMARY: CTDlvol: 45 mGy DLP: 846 mGycm COMPARISON: None FINDINGS: Brain: Within normal limits for age CSF Spaces: Normal Sinuses/Mastoids: Clear at visualized levels Bones: Unremarkable CT/Brain/Head without Contrast IMPRESSION: NO ACUTE FINDINGS Reading Location: [facility] CC: [facility] DITCHING MACHINE ENGINEER-C Jennifer Mathur; Dr. Rupert Hernández MD Book Canvasser: Signed Normal [facility] CBC W/Diff, Automatedon 12-09 Absolute Lymph 2.79 X10 3/uL Normal 0.83-4.51 [facility] Comment on above: Performed By: #### L 500.2500, L501.4021, L100.0100 ####[facility] [address] [place], [address] Absolute Neut 2.6 X10 3/uL Normal 2.0-7.7 [facility] Comment on above: Performed By: #### L 500.2500, L501.4021, L100.0100 ####[facility] [address] [place], [address] Basophils/100 WBC (Bld) 1.1 % High 0-1 [facility] Comment on above: Performed By: #### L 500.2500, L501.4021, L100.0100 ####[facility] [address] [place], [address] Eosinophils/100 WBC (Bld) 3.5 % Normal 0-5 [facility] Comment on above: Performed By: #### L 500.2500, L501.4021, L100.0100 ####[facility] [address] [place], [address] Erythrocyte distribution width (RBC) [Ratio] 13.3 % Normal 11.6-14.6 [facility] Comment on above: Performed By: #### L 500.2500, L501.4021, L100.0100 ####[facility] [address] [place], [address] Hematocrit (Bld) [Volume fraction] 47.1 % Normal 40-54 [facility] Comment on above: Performed By: #### L 500.2500, L501.4021, L100.0100 ####[facility] [address] [place], [address] Hemoglobin (Bld) [Mass/Vol] 16.3 g/dL Normal 13.0-16.5 [facility] Comment on above: Performed By: #### L 500.2500, L501.4021, L100.0100 ####[facility] [address] [place], [address] IG% 0.200 Normal 0.0-0.9 [facility] Comment on above: Result Comment: IG% - Immature Granulocytes (promyelocytes, myelocytes and metamyelocytes) > 1% indicates that a LEFT SHIFT is Present. Performed By: #### L 500.2500, L501.4021, L100.0100 ####[facility] [address] [place], [address] Lymphocytes/100 WBC (Bld) 44.3 % High 19-41 [facility] Comment on above: Performed By: #### L 500.2500, L501.4021, L100.0100 ####[facility] [address] [place], [address] MCH (RBC) [Entitic mass] 28.5 pg Normal 27.0-32.0 [facility] Comment on above: Performed By: #### L 500.2500, L501.4021, L100.0100 ####[facility] [address] [place], [address] MCHC (RBC) [Mass/Vol] 34.6 g/dL Normal 32-36 [facility] Comment on above: Performed By: #### L 500.2500, L501.4021, L100.0100 ####[facility] [address] [place], [address] MCV (RBC) [Entitic vol] 82.5 fL Normal 80-94 [facility] Comment on above: Performed By: #### L 500.2500, L501.4021, L100.0100 ####[facility] [address] [place], [address] Monocytes/100 WBC (Bld) 9.0 % Normal 0-10 [facility] Comment on above: Performed By: #### L 500.2500, L501.4021, L100.0100 ####[facility] [address] [place], [address] Neutrophils/100 WBC (Bld) 41.9 % Low 47-70 [facility] Comment on above: Performed By: #### L 500.2500, L501.4021, L100.0100 ####[facility] [address] [place], [address] Nucleated RBC (Bld) [#/Vol] 0 10*3/uL Normal 0-5 [facility] Comment on above: Performed By: #### L 500.2500, L501.4021, L100.0100 ####[facility] [address] [place], [address] Platelet mean volume (Bld) [Entitic vol] 10.7 fL Normal 6.2-12.0 [facility] Comment on above: Performed By: #### L 500.2500, L501.4021, L100.0100 ####[facility] [address] [place], [address] Platelets (Bld) [#/Vol] 255 10*3/uL Normal 150-450 [facility] Comment on above: Performed By: #### L 500.2500, L501.4021, L100.0100 ####[facility] [address] [place], [address] RBC (Bld) [#/Vol] 5.71 10*6/uL Normal 4.6-6.2 [facility] Comment on above: Performed By: #### L 500.2500, L501.4021, L100.0100 ####[facility] [address] [place], [address] RDW SD 39.5 fl Normal 35.1-43.9 [facility] Comment on above: Performed By: #### L 500.2500, L501.4021, L100.0100 ####[facility] [address] [place], [address] WBC (Bld) [#/Vol] 6.3 10*3/uL Normal 4.4-11.0 [facility] Comment on above: Performed By: #### L 500.2500, L501.4021, L100.0100 ####[facility] [address] [place], [place], [address] Carbon dioxide, total [Moles /volume] in Central venous bloodOrdered By: Rupert Hernández on 12-27-2024 CO2 [Moles/Vol] 22.3 mmol/L 21.0-32.0 [facility] Chloride assayOrdered By: Akosua Hernández on 12-27-2024 Chloride [Moles/Vol] 104 mmol/L 98-108 [facility] D-Dimer Quantitative (DVT/PE )on 12-27-2024 D-DIMER QUANT 0.27 FEU/ug/m Normal 0.27-0.49 [facility] Comment on above: Result Comment: NORM AL D-Dimer level (<0.50) indicates no DVT or PE. Performed By: #### L 300.8000 #### [facility] [address] [place], [place], [address] D-dimer measurement for deep venous thrombosisOrdered By: Rupert Hernández on 12-27-2024 D-Dimer Quantitative (PE/DVT) 0.27 FEU/ug/m 0.27-0.49 [facility] Comment on above: NORMAL D-Dimer level (<0.50) indicates no DVT or PE. Emergency Department Summary on 12-27-2024 Emergency Department Summary [facility] Medical Records Department [address] [place] [address] Emergency Department Summary 12/27/24 MR#: [id number] Acct: [id number] Name: MARINELLIAMADO RUBIO Rep #: [id number] : 1990 34 From: Rupert Hernández MD PCP: MAYCOL Jenkins, DITCHING MACHINE ENGINEER-C Status:REG ER Location: ED HPI History of Present Illness Chief Complaint: Syncope Informant: patient and spouse/S.O. Narrative Narrative: 34-year-old male presents for recurrent syncope. He states 3 days ago he was eating and became nauseated and vomited, which happens frequently to him due to reflux from what he thinks, but the other day he vomited and immediately passed out then resolved, fell and hit his head on the bathroom door. When he woke up he had a terrible headache, he went to a different hospital and he states they did a CT scan and told him it was negative and sent him home and told him to take Tylenol and Benadryl. He states has been taking Benadryl and he does not know why they told him to take Benadryl except for was for the headache. Now he has had multiple recurrent syncopal episodes randomly with no prodromal symptoms except for lightheadedness. He denies any chest discomfort, dyspnea, palpitations, rapid heartbeat, abdominal pain. However an hour ago when he last had this occur, he was eating, no nausea or vomiting, and passed out. When he came to, the significant other states he drag his right foot for 4 or 5 minutes and then went back to normal according to the patient. He has no complaints right now Except for the headache. He states the headaches been getting worse. He denies any recurrent head injuries that he knows of. 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 Takes reflux medication but no other daily medications prior to seeing the ER a couple days ago. [facility] Medical History Gastric reflux Substance abuse Bipolar disorder Smoker Asthma Leg cramps Acid reflux Heart disease COPD (chronic obstructive pulmonary disease) Home Medications ???Medication ???Instructions ???Recorded ???Last Taken ???Type aspirin 81 mg tablet,delayed 81 mg PO QDAY 06/10/24 09/08/24 Hi story release Allergy/AdvReac Type Severity Reaction Status Date / Time Penicillins Allergy Hives Verified 12/27/24 21:48 ibuprofen AdvReac Nausea Verified 12/27/24 21:48 Surgical History History of esophagogastroduodenoscop y (EGD) Hx of hand surgery Social History Smoking Status: Light Smoker (<10/day) alcohol intake: current substance use type: heroin and methamphetamine ROS ROS ED Constitutional Constitutional ED: Denies chills or fever(s) Eyes Eyes: Denies change in vision or diplopia ENT ENT ED: Denies rhinorrhea or sore throat Cardiovascular Cardiovascular: Reports syncope; Denies chest pain or palpitations Respiratory/Chest Respiratory/Chest: Denies cough or dyspnea Gastrointestinal Gastrointestinal: Denies abdominal pain, diarrhea, nausea or vomiting Genitourinary Genitourinary ED: Denies dysuria or hematuria Musculoskeletal Musculoskeletal: Denies back pain or neck pain Integumentary Denies abscess or rash Neurologic Neurologic: Reports headache(s) and other Details: transient RLE weakness, see HPI ; Denies paresthesias Psychiatric Psychiatric: Denies anxiety or suicidal thoughts EXAM Physical Exam Const Vital Signs: 12/27/24 21:45 12/27/24 21:57 12/27/24 21:57 Temperature 98.3 F Temperature Source Temporal Pulse Rate 88 82 Pulse Rate [Lying] Pulse Rate [Sitting (for 1 minute prior to obtaining)] Pulse Rate [Standing (for 1 minute prior to obtaining)] Respiratory Rate 16 23 H Respiratory Effort Normal Respiratory Pattern Normal Blood Pressure 147/90 H 135/92 H Blood Pressure [Lying] Blood Pressure [Sitting (for 1 minute prior to obtaining)] Blood Pressure [Standing (for 1 minute prior to obtaining)] Blood Pressure Mean 109 106 Blood Pressure Mean [Lying] Blood Pressure Mean [Sitting (for 1 minute prior to obtaining)] Blood Pressure Mean [Standing (for 1 minute prior to obtaining)] Pulse Ox 98 98 Oxygen Delivery Method Room Air Room Air 12/27/24 22:16 12/27/24 22:43 12/27/24 22:50 Temperature Temperature Source Pulse Rate 64 Pulse Rate [Lying] 74 Pulse Rate [Sitting (for 1 minute prior to obtaining)] 61 Pulse Rate [Standing (for 1 minute prior to obtaining)] 105 H Respiratory Rate 18 Respiratory Effort Respiratory Pattern Blood Pressure 138/101 H Blood Pressure [Lying] (more content not included)... Normal [facility] Eosinophil percentageOrdered By: Rupert Hernández on 12-27-2024 Eosinophils/100 WBC (Bld) 3.5 % 0-5 [facility] Erythrocyte distribution wid th (RBC) [Ratio]Ordered By: Rupert Hernández on 12-27-2024 Erythrocyte distribution width (RBC) [Entitic vol] 39.5 fL 35.1-43.9 [facility] Erythrocyte distribution wid th ratioOrdered By: Rupert Hernández on 12-27-2024 Erythrocyte distribution width (RBC) [Ratio] 13.3 % 11.6-14.6 [facility] Erythrocyte distribution wid th standard deviationOrdered By: Rupert Hernández on 12-27-2024 Erythrocyte distribution width (RBC) [Ratio] 39.5 fl 35.1-43.9 [facility] Estimation of creatinine shirley aranceOrdered By: Rupert Hernández on 12-27-2024 Estimated Creatinine Clearance Calc 129.00 ml/min 50-250 [facility] GFR/1.73 sq M.predicted erica g non-blacks MDRD (S/P/Bld) [Vol rate/Area]Ordered By: Rupert Hernández on 12-27-2024 Estimated GFR (MDRD) Non-Af Amer 107 >60 [facility] Comment on above: mL/min/1.73m2 CKD-EP I Creatinine Equation (2020) Glomerular filtration rate ( GFR) estimation/1.73 sq m using serum, plasma, or whole bOrdered By: Rupert Hernández on 12-27-2024 GFR/1.73 sq M.predicted among non-blacks MDRD (S/P/Bld) [Vol rate/Area] 107 mL/min/{1.73_m2} >60 [facility] Comment on above: mL/min/1.73m2 CKD-EP I Creatinine Equation (2020) Hematocrit Auto (Bld) [Volum e fraction]Ordered By: Rupert Hernández on 12-27-2024 Hematocrit (Bld) [Volume fraction] 47.1 % 40-54 [facility] Hemoglobin measurementOrdere d By: Rupert Hernández on 12-27-2024 Hemoglobin (Bld) [Mass/Vol] 16.3 g/dL 13.0-16.5 [facility] Immature granulocytes/100 WB C Auto (Bld)Ordered By: Rupert Hernández on 12-27-2024 Immature granulocytes/100 WBC (Bld) 0.200 % 0.0-0.9 [facility] Comment on above: IG% - Immature Granu locytes (promyelocytes, myelocytes and metamyelocytes) > 1% indicates that a LEFT SHIFT is Present. L501.4021on 12-27-2024 Trop T High Sen < 6 Normal <=22 [facility] Comment on above: Performed By: #### L 500.2500, L501.4021, L100.0100 ####[facility] [address] [place], [address] Lymphocytes Auto (Unsp spec) [#/Vol]Ordered By: Rupert Hernández on 12-27-2024 Lymphocytes (Bld) [#/Vol] 2.79 10*3/uL 0.83-4.51 [facility] Lymphocytes/100 WBC Auto (Un sp spec)Ordered By: Rupert Hernández on 12-27-2024 Lymphocytes/100 WBC (Bld) 44.3 % High 19-41 [facility] MCV (mean corpuscular volume ) determinationOrdered By: Rupert Hernández on 12-27-2024 MCV (RBC) [Entitic vol] 82.5 fL 80-94 [facility] Mean corpuscular hemoglobin (MCH) determinationOrdered By: Rupert Hernández on 12-27-2024 MCH (RBC) [Entitic mass] 28.5 pg 27.0-32.0 [facility] Mean corpuscular hemoglobin concentration (MCHC) determinationOrdered By: Rupert Hernández on 12-27-2024 MCHC (RBC) [Mass/Vol] 34.6 g/dL 32-36 [facility] Mean platelet volume determi nationOrdered By: Rupert Hernández on 12-27-2024 Platelet mean volume (Bld) [Entitic vol] 10.7 fL 6.2-12.0 [facility] Monocyte percentageOrdered B y: Rupert Hernández on 12-27-2024 Monocytes/100 WBC (Bld) 9.0 % 0-10 [facility] Neutrophil percentageOrdered By: Rupert Hernández on 12-27-2024 Neutrophils/100 WBC (Bld) 41.9 % Low 47-70 [facility] Nucleated red blood cell per centageOrdered By: Rupert Hernández on 12-27-2024 Nucleated RBC/100 WBC (Bld) [Ratio] 0 % 0-5 [facility] Platelet countOrdered By: Akosua Hernández on 12-27-2024 Platelets (Bld) [#/Vol] 255 10*3/uL 150-450 [facility] Potassium (Unsp spec) [Mass/ Vol]Ordered By: Rupert Hernández on 12-27-2024 Potassium [Moles/Vol] 3.8 mmol/L 3.3-5.1 [facility] Potassium measurement (mass/ volume)Ordered By: Rupert Hernández on 12-27-2024 Potassium (Unsp spec) [Mass/Vol] 3.8 mmol/L 3.3-5.1 [facility] RBC Auto (Bld) [#/Vol]Ordere d By: Rupert Hernández on 12-27-2024 RBC (Bld) [#/Vol] 5.71 10*6/uL 4.6-6.2 [facility] Serum creatinine measurement (mass/volume)Ordered By: Rupert Hernández on 12-27-2024 Creatinine [Mass/Vol] 0.96 mg/dL 0.70-1.20 [facility] Serum glucose measurement (m ass/volume)Ordered By: Rupert Hernández on 12-27-2024 Glucose [Mass/Vol] 105 mg/dL High 70-99 [facility] Serum or plasma calcium jeff urement (mass/volume)Ordered By: Rupert Hernández on 12-27-2024 Calcium [Mass/Vol] 9.6 mg/dL 7.6-11.0 [facility] Serum or plasma urea nitroge n measurement (mass/volume)Ordered By: Rupert Hernández on 12-27-2024 Urea nitrogen [Mass/Vol] 14 mg/dL 4-19 [facility] Sodium levelOrdered By: Andrew Hernández on 12-27-2024 Sodium [Moles/Vol] 139 mmol/L 133-145 [facility] Troponin T.cardiac High sens itivity method [Mass/Vol]Ordered By: Rupert Hernández on 12-27-2024 Troponin T High Sensitivity 2 Hour < 6 ng/L <22 [facility] Troponin T High Sensitivity < 6 ng/L <22 [facility] Troponin T.cardiac [Mass/vol ume] in Serum or Plasma by High sensitivity methodOrdered By: Rupert Hernández on 12-27-2024 Troponin T.cardiac High sensitivity method [Mass/Vol] < 6 ng/L <22 [facility] Troponin T.cardiac High sensitivity method [Mass/Vol] < 6 ng/L <22 [facility] White blood cell (WBC) count Ordered By: Rupert Hernández on 12-27-2024 WBC (Bld) [#/Vol] 6.3 10*3/uL 4.4-11.[address] [facility] [address] HEAD OR BRAIN W/O CONTRAS Ton 12-24-2024 CT HEAD OR BRAIN W/O CONTRAST ORIGINAL EXAMINATION: CT OF THE HEAD WITHOUT CONTRAST 12/24/2024 10:54 am TECHNIQUE: CT of the head was performed without the administration of intravenous contrast. Automated exposure control, iterative reconstruction, and/or weight based adjustment of the mA/kV was utilized to reduce the radiation dose to as low as reasonably achievable. COMPARISON: None. HISTORY: ORDERING SYSTEM PROVIDED HISTORY: Reason for Exam: pain FINDINGS: BRAIN/VENTRICLES: There is no acute intracranial hemorrhage, mass effect or midline shift. No abnormal extra-axial fluid collection. The farnsworth-white differentiation is maintained without evidence of an acute infarct. There is no evidence of hydrocephalus. ORBITS: The visualized portion of the orbits demonstrate no acute abnormality. SINUSES: The visualized paranasal sinuses and mastoid air cells demonstrate no acute abnormality. SOFT TISSUES/SKULL: No acute abnormality of the visualized skull or soft tissues. IMPRESSION: Unremarkable unenhanced CT examination of the brain. Interpreted by: Pieter Mcmillan Preliminary Report By: Pieter Mcmillan Electronically signed By Pieter Mcmillan Dictated Date: 12/24/2024 10:55:40 AM Prelim Date: 12/24/2024 10:56:42 AM Sign Date: 12/24/2024 10:56:42 AM Ordering Provider: CATALINA Gabriel [facility] [place] 2024 KIRAN Telephone ([id number]) ----- AMADO MARINELLI ([id number]) 1990 M Date Time Provider Department 11/18/24 HARRIET RIVERAENS4 During your visit today, we recorded the following information about you: Bipin Wei RN 2024 3:08 PM Signed I called patient as he left another phone message for Dr. Rivera. Patient was very excited/agitated when I called. After listening to him he calmed down. Patient stated he started having vomiting AND dry heaves on 11/13/34 after eating eggs and 2 slices of toast for dinner. Patient states he has not been able to keep any solid food down since then, just liquids, which sometimes he does vomit (vomiting is intermittent). Patient is unable to tell me what color his urine is as they use blue coloring in his toilet bowl. Patient stated he vomited last night. I woke up in the middle of the night and brought up 1/2 small bottle of yellow liquid and it pablo. After a few more questions we came up with a plan: ~continue taking his omeprazole twice a day ~suggested patient purchase Gaviscon liquid to take PRN at night if he brings up liquid at night like he did last night ~Patient currently eats dinner at 7-7:30 pm and bedtime is between 10-11 pm. Patient sleeps on 4 pillows--continue ~eliminate toast (patient states it causes burning), coffee and OJ from his diet. ~Patient to remain on liquid only diet for the next few days; patient agreed. If patient is tolerating liquids without vomiting/dry heaving, then he can move to soft liquids such as yogurt, pudding and creamed soups. ~I recommended that patient purchase some clear protein drinks like Boost Breeze, Ensure Clear and Protein 20 to give him some nutrition in the next few days. ~Patient may continue to drink Gatorade, water and chicken broth. Patient was agreeable to this plan. He verbalized his upcoming testing and dates. Patient denied questions at the end of the call. I told him I will share all this information with Dr. Rivera. Patient thanked me for calling. Bipin Wei RN Allergies As of Date: 2024 Noted Allergy Reaction IBUPROFEN 02/19/2015 8 - GI Upset NAPROXEN 02/19/2015 8 - GI Upset PENICILLINS 04/23/2013 14 - Other: See Comments Comments: Throat started to close up. Date Reviewed: 10/23/2024 Reviewed by: Harriet Rivera MD - Fully Assessed Reason for Visit: Returning Patient's Call [[id number]] Patient Question [2380] Prescriptions as of 2024 - aspirin, enteric coated (ASPIRIN, ENTERIC COATED) 81 mg EC tablet Take 1 tablet by mouth every afternoon. - hydrOXYzine HCl (ATARAX) 50 mg tablet Take 1 tablet by mouth every 12 hours. - omeprazole (PRILOSEC) 40 mg capsule Take 1 capsule by mouth every 12 hours. - QUEtiapine XR (SEROQUEL XR) 50 mg Tb24 Take 50 mg by mouth daily at bedtime. - traZODone (DESYREL) 50 mg tablet Take 50 mg by mouth daily at bedtime. - ALBUTEROL INHALATION Inhale as instructed. - keTORolac (TORADOL) 10 mg tablet Take 1 tablet by mouth every 6 hours as needed. Meds Comments as of 06/10/2023: June 10, 2023: Patient reports no changes to medications in the last 30 days. Obdulia Patel RN Problem List As Of Date 2024 Noted Resolved Genital herpes [A60.00] 04/10/2013 ADHD (attention deficit hyperactivity disorder)* Depression [F32.A] Tobacco use disorder [F17.200] Hand laceration involving tendon, initial encou*02/18/2018 Hand laceration involving tendon, left, subsequ*02/18/2018 Bipolar disorder (HCC) [F31.9] Encounter Status:Closed by BIPIN WEI on 11/18/24 [facility] [place] 11-17-2024 [facility] Telephone (AGGENS4) ----- AMADO MARINELLI ([id number]) 1990 M Date Time Provider Department 11/17/24 HARRIET RIVERAENS4 During your visit today, we recorded the following information about you: Tex Hartman RN 11/17/2024 11:09 AM Signed Pt called in with C/O increased nausea and heartburn x 5 days post gastric emptying study on 11/12/2024. Per pt, and now feels like he cannot keep anything down. He states he is able to drink plenty of fluids without nausea, but cannot tolerate eating anything. He states he is taking his Omeprazole and Tums for the heartburn, does not have anything for nausea. Pt denies fevers, but states he keeps getting hot/cold flashes. He states he had diarrhea for 2 days after the gastric emptying study, but is having normal stools now. Pt reports that he feels like he is unable to swallow any food, as if it remains in his throat. He did go to the urgent care d/t symptoms on 11/14/2024. Pt reports that the urgent care told him he may have a stomach bug and to drink broth. Pt reports drinking broth, but symptoms are still present. Pt requests for Dr. Rivera to advise next steps, as he has an upcoming scope. Advised pt to cont to stay hydrated and that I will forward concerns to [facility] RN and Dr. Rivera. Advised pt that we will reach back out with further instructions. Pt understands and agrees to plan. Tex Hartman RN, BSN Bariatric Rn Lactation Allergies As of Date: 11/17/2024 Noted Allergy Reaction IBUPROFEN 02/19/2015 8 - GI Upset NAPROXEN 02/19/2015 8 - GI Upset PENICILLINS 04/23/2013 14 - Other: See Comments Comments: Throat started to close up. Date Reviewed: 10/23/2024 Reviewed by: Harriet Rivera MD - Fully Assessed Reason for Visit: Patient Question [5847] Patient Update [7064] Prescriptions as of 11/17/2024 - aspirin, enteric coated (ASPIRIN, ENTERIC COATED) 81 mg EC tablet Take 1 tablet by mouth every afternoon. - hydrOXYzine HCl (ATARAX) 50 mg tablet Take 1 tablet by mouth every 12 hours. - omeprazole (PRILOSEC) 40 mg capsule Take 1 capsule by mouth every 12 hours. - QUEtiapine XR (SEROQUEL XR) 50 mg Tb24 Take 50 mg by mouth daily at bedtime. - traZODone (DESYREL) 50 mg tablet Take 50 mg by mouth daily at bedtime. - ALBUTEROL INHALATION Inhale as instructed. - keTORolac (TORADOL) 10 mg tablet Take 1 tablet by mouth every 6 hours as needed. Meds Comments as of 06/10/2023: June 10, 2023: Patient reports no changes to medications in the last 30 days. Obdulia Patel RN Problem List As Of Date 11/17/2024 Noted Resolved Genital herpes [A60.00] 04/10/2013 ADHD (attention deficit hyperactivity disorder)* Depression [F32.A] Tobacco use disorder [F17.200] Hand laceration involving tendon, initial encou*02/18/2018 Hand laceration involving tendon, left, subsequ*02/18/2018 Bipolar disorder (HCC) [F31.9] Encounter Status:Closed by TEX HARTMAN on 11/17/24 [facility] GASTRIC EMPTYING SOLIDon 11-12-2024 [place] GASTRIC EMPTYING SOLID * * *Final Report* * * DATE OF EXAM: Nov 12 2024 10:40AM [facility] 0017 - [place] GASTRIC EMPTYING SOLID / PROCEDURE REASON: Nausea * * * * Physician Interpretation * * * * EXAMINATION: SOLID MEAL GASTRIC EMPTYING STUDY CLINICAL HISTORY: Nausea TECHNIQUE: 1.06 millicuries of Tc-99m sulfur colloid administered PO in a solid meal (see below) consumed over 10 minutes. Static planar images of the gastric region obtained at 0, 1, 2, and 4 hours. Geometric means were used to calculate gastric retention values. Reference, https://doi.org/10.2967/j nmt.107.226727 * Solid meal ingested by the patient: 4 ounces of egg beater 2 pieces of toast and 8 ounces of water * Standard solid meal for adults: 4 ounces of egg beaters, 2 slices of toast, 1 ounce of jelly, and 8 ounces of water COMPARISON: CT abdomen pelvis 09/17/2024 RESULT: Solid meal (or solid meal equivalent) gastric retention values: * 19% retention at 1 hour (normal range, 30-90%; accelerated emptying defined as <30% at 1 hour) * 1% retention at 2 hours (normal range, <60%) Fundal Accommodation: Adequate IMPRESSION: Accelerated gastric emptying rate for the solid meal. Book Canvasser: TRISTIAN Transcribe Date/Time: Nov 12 2024 10:41A Dictated by : CHANDRA PARKER MD This examination was interpreted and the report reviewed and electronically signed by: RUPERTO SIDHU MD on Nov 12 2024 10:53AM EST [id number] Normal [facility] NM Stomach Views for gastric emptying solid phase W radionuclide Bree 11-12-2024 IMPRESSION: Accelerated gastric emptying rate for the solid meal. Book Canvasser: TRISTIAN Transcribe Date/Time: Nov 12 2024 10:41A Dictated by : CHANDRA PARKER MD This examination was interpreted and the report reviewed and electronically signed by: RUPERTO SIDHU MD on Nov 12 2024 10:53AM EST [employer] [facility] [employer] * * *Final Report* * * DATE OF EXAM: Nov 12 2024 10:40AM [facility] 0017 - [place] GASTRIC EMPTYING SOLID / PROCEDURE REASON: Nausea * * * * Physician Interpretation * * * * EXAMINATION: SOLID MEAL GASTRIC EMPTYING STUDY CLINICAL HISTORY: Nausea TECHNIQUE: 1.06 millicuries of Tc-99m sulfur colloid administered PO in a solid meal (see below) consumed over 10 minutes. Static planar images of the gastric region obtained at 0, 1, 2, and 4 hours. Geometric means were used to calculate gastric retention values. Reference, https://doi.org/10.2967/j nmt.107.903991 * Solid meal ingested by the patient: 4 ounces of egg beater 2 pieces of toast and 8 ounces of water * Standard solid meal for adults: 4 ounces of egg beaters, 2 slices of toast, 1 ounce of jelly, and 8 ounces of water COMPARISON: CT abdomen pelvis 09/17/2024 RESULT: Solid meal (or solid meal equivalent) gastric retention values: * 19% retention at 1 hour (normal range, 30-90%; accelerated emptying defined as <30% at 1 hour) * 1% retention at 2 hours (normal range, <60%) Fundal Accommodation: Adequate [facility] * * *Final Report* * * DATE OF EXAM: Nov 12 2024 10:40AM [facility] 0017 - NM GASTRIC EMPTYING SOLID / PROCEDURE REASON: Nausea * * * * Physician Interpretation * * * * EXAMINATION: SOLID MEAL GASTRIC EMPTYING STUDY CLINICAL HISTORY: Nausea TECHNIQUE: 1.06 millicuries of Tc-99m sulfur colloid administered PO in a solid meal (see below) consumed over 10 minutes. Static planar images of the gastric region obtained at 0, 1, 2, and 4 hours. Geometric means were used to calculate gastric retention values. Reference, https://doi.org/10.2967/j nmt.107.697900 * Solid meal ingested by the patient: 4 ounces of egg beater 2 pieces of toast and 8 ounces of water * Standard solid meal for adults: 4 ounces of egg beaters, 2 slices of toast, 1 ounce of jelly, and 8 ounces of water COMPARISON: CT abdomen pelvis 09/17/2024 RESULT: Solid meal (or solid meal equivalent) gastric retention values: * 19% retention at 1 hour (normal range, 30-90%; accelerated emptying defined as <30% at 1 hour) * 1% retention at 2 hours (normal range, <60%) Fundal Accommodation: Adequate IMPRESSION IMPRESSION: Accelerated gastric emptying rate for the solid meal. Book Canvasser: PSCB Transcribe Date/Time: Nov 12 2024 10:41A Dictated by : CHANDRA PARKER MD This examination was interpreted and the report reviewed and electronically signed by: RUPERTO SIDHU MD on Nov 12 2024 10:53AM EST [facility] Radiology Study observation (narrative) Vinayak mallory [facility] Stomach Views for gastric emptying solid phase W radionuclide POOrdered By: [facility] Provider on 11-12-2024 [facility] CNOVon 10-23-2024 CNOV Office Visit (AGGENS 4) ----- AMADO MARINELLI ([id number]) 1990 M Date Time Provider Department 10/23/24 3:00 PM HARRIET RIVERA AGGENS4 During your visit today, we recorded the following information about you: Pulse Blood pressure Weight Height 88/minute 134/83 95.3 kg 1.829 m Harriet Rivera MD 10/23/2024 3:21 PM Signed SURGICAL SERVICES HISTORY AND PHYSICAL EXAMINATION SERVICE DATE: 10/23/2024 SERVICE TIME: 2:41 PM PRIMARY CARE PHYSICIAN: Dacia Camejo MD SUBJECTIVE CHIEF COMPLAINT: aborted hernia repair HISTORY OF PRESENT ILLNESS: Mr. Marinelli is a 33 year old male with a PMH of ADHD, Bipolar d/o and depression, polysubstance abuse (meth, heroin, overdose 07/2019), genital herpes, and tobacco use disorder who presents for surgical evaluation. Surgical consultation was requested by the patient's referring physician, Dr. Sancho Rodriguez MD. A copy of this consultation note will be provided to the requesting physician(s) by way of shared medical record or letter via [place] mail. 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 The only dissection completed in the attempted surgery, per the operative report, was dissection over the right zaida. The patient reports greater than one year history of heartburn and regurgitation symptoms that occur every time that he eats - no matter what he eats, he immediately experiences regurgitation of acid and food. He states that 2-3 times per week he has regurgitation of food he has just consumed and 2-3 nights per week he has on-going/near continuous emesis for 2-3 hours. His most severe symptoms occur at night. He was on Omeprazole 40 mg BID about one year and does not think it helped his symptoms at all and is no longer taking this medication. He eats a lot of Tums and thinks that every once in a while they help his symptoms. He states that his surgeon also placed him on baby ASA daily and he is still taking this. He denies dysphagia. Workup: - CT Abd/pelvis w/ IV contrast (09/17/24): no acute abnormality Social: smokes 1.5 packs of cigarettes per day; denies use of vape; denies [facility] exposure. On probation so not using drugs currently - last use was one year ago. Denies use of ETOH or MJ PSH: hand surgery; Dx lap PAST MEDICAL HISTORY: PAST MEDICAL HISTORY Diagnosis Date ADHD (attention deficit hyperactivity disorder) Bipolar disorder ([facility]) Depression [facility], history of suicide attempt Genital herpes 04/2013 Polysubstance abuse ([facility]) meth, heroin. Oversoe 07/2019 [facility] Tobacco use disorder PAST SURGICAL HISTORY: PAST SURGICAL HISTORY Procedure Laterality Date EXPLORATORY OF ABDOMEN 09/15/2024 aborted Maxwell; Dr. Rodriguez HAND SURGERY HX Left 02/18/2018 FAMILY HISTORY: FAMILY HISTORY Problem Relation Age of Onset COPD Father Cancer Father of lung cancer Cancer Paternal Grandfather of lung cancer Cancer Paternal Uncle of lung cancer Psychiatry Mother depression Diabetes Maternal Grandmother SOCIAL HISTORY: Social History Tobacco Use Smoking status: Every Day Current packs/day: 0.50 Average packs/day: 0.5 packs/day for 5.0 years (2.5 ttl pk-yrs) Types: Cigarettes Smokeless tobacco: Former Types: Chew Tobacco comments: started smoking 17yo Vaping Use Vaping status: Never Used Substance Use Topics Alcohol use: No Drug use: No MEDICATIONS: Current Outpatient Medications Medication Sig aspirin, enteric coated (ASPIRIN, ENTERIC COATED) 81 mg EC tablet Take 1 tablet by mouth every afternoon. hydrOXYzine HCl (ATARAX) 50 mg tablet Take 1 tablet by mouth every 12 hours. omeprazole (PRILOSEC) 40 mg capsule Take 1 capsule by mouth every 12 hours. traZODone (DESYREL) 50 mg tablet Take 50 mg by mouth daily at bedtime. ALBUTEROL INHALATION Inhale as instructed. QUEtiapine XR (SEROQUEL XR) 50 mg Tb24 Take 50 mg by mouth daily at bedtime. (Patient not taking: Reported on 10/23/2024) keTORolac (TORADOL) 10 mg tablet Take 1 tablet by mouth every 6 hours as needed. (Patient not taking: Reported on 10/23/2024) No current facility-administered medications for this visit. ALLERGIES: ALLERGIES Allergen Reactions Ibuprofen GI Upset Naproxen GI Upset Penicillins Other: See Comments Throat started to close up. COMPLETE REVIEW OF SYSTEMS: Review of Systems Constitutional: Negative for chills, diaphoresis, fever and malaise/fatigue. HENT: Negative for congestion, hearing loss, nosebleeds, sinus pain, sore throat and tinnitus. Eyes: Negative for blurred vision, double vision, pain and redness. Respiratory: Negative for cough, hemoptysis, sputum production, shortness of breath and wheezing. Cardiovascular: Positive for chest pain (with acid regurgitation). Negative (more content not included)... [facility] Telephone (AGGENS4) ----- AMADO MARINELLI ([id number]) 1990 M Date Time Provider Department 10/23/24 HARRIET RIVERA AGGENS4 During your visit today, we recorded the following information about you: Parris Marin LPN 10/23/2024 3:42 PM Signed Manometry scheduled for 12/15/2024 at 800am followed by EGD/Fabio at 900am. Prep/instructions given to patient at checkout. Parris Marin LPN Allergies As of Date: 10/23/2024 Noted Allergy Reaction IBUPROFEN 02/19/2015 8 - GI Upset NAPROXEN 02/19/2015 8 - GI Upset PENICILLINS 04/23/2013 14 - Other: See Comments Comments: Throat started to close up. Date Reviewed: 10/23/2024 Reviewed by: Harriet Rivera MD - Fully Assessed Reason for Visit: Appointment [186] Cmt: EGD FUENTES MANO Prescriptions as of 10/23/2024 - aspirin, enteric coated (ASPIRIN, ENTERIC COATED) 81 mg EC tablet Take 1 tablet by mouth every afternoon. - hydrOXYzine HCl (ATARAX) 50 mg tablet Take 1 tablet by mouth every 12 hours. - omeprazole (PRILOSEC) 40 mg capsule Take 1 capsule by mouth every 12 hours. - QUEtiapine XR (SEROQUEL XR) 50 mg Tb24 Take 50 mg by mouth daily at bedtime. - traZODone (DESYREL) 50 mg tablet Take 50 mg by mouth daily at bedtime. - ALBUTEROL INHALATION Inhale as instructed. - keTORolac (TORADOL) 10 mg tablet Take 1 tablet by mouth every 6 hours as needed. Meds Comments as of 06/10/2023: June 10, 2023: Patient reports no changes to medications in the last 30 days. Obdulia Patel RN Problem List As Of Date 10/23/2024 Noted Resolved Genital herpes [A60.00] 04/10/2013 ADHD (attention deficit hyperactivity disorder)* Depression [F32.A] Tobacco use disorder [F17.200] Hand laceration involving tendon, initial encou*02/18/2018 Hand laceration involving tendon, left, subsequ*02/18/2018 Bipolar disorder (HCC) [F31.9] Encounter Status:Closed by PARRIS MARIN on 10/23/24 [facility] Surgery Visit Reporton 09-22 Surgery Visit Report [facility] [address] [place] [address]. [address] [place] [address] OFFICE VISIT Date of Service: 09/22/24 MR#: [id number] Acct: [id number] Name: AMADO MARINELLI Rep #: [id number] : 1990 Provider: KWADWO jimenez Age/Sex: 33/M Location: [facility] Status: Signed Intake Vital Signs 09/17/24 11:03 Height 6 ft Intake Visit Reasons: INCISIONS ARE STABBING HIM Chief Complaint: c/o incisions stabbing him Is patient in pain?: Yes Allergies Penicillins Allergy (Verified 09/22/24 10:17) Hives ibuprofen Adverse Reaction (Verified 09/22/24 10:17) Nausea Medications ???Medication ???Instructions ???Recorded ???Confirmed ???Type aspirin 81 mg tablet,delayed 81 mg PO QDAY 06/10/24 09/22/24 History release hydroxyzine HCl 50 mg tablet 50 mg PO BID 06/10/24 09/22/24 History quetiapine 50 mg tablet,extended 50 mg PO QHS 06/10/24 09/22/24 History release 24 hr omeprazole 40 mg capsule,delayed 40 mg PO BID 08/05/24 09/22/24 History release trazodone 50 mg tablet 50 mg PO QPM 09/17/24 09/22/24 History tramadol 50 mg tablet 50 mg PO Q8H PRN pain 3 days #9 09/22/24 09/22/24 Rx tabs Subjective Details: Patient is a 33 y/o M I am following s/p attempted Robotic assisted laparoscopic Maxwell converted to exploratory laparoscopy by Dr. Rodriguez on 09/15/24. 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 At the time, it was unsure if this vessel was a replaced gastric or right hepatic vessel. An attempt was made to dissect underneath and above the vessel, unfortunately there was not a good plane to get into. The procedure was then aborted. Patient contacted our office multiple times post-operatively noting a significant amount of pain in his abdomen. He was directed to the ED and went on 09/17/24. A CT scan of the ab/pel was completed and demonstrated a small amount of free air in the anterior peritoneal fat consistent with recent surgery. Otherwise no acute abnormalities. Patient notes he has been taking Tylenol every 6 hours. He notes the abdominal pain is improving, however he continues to note a stabbing sensation at the left lower quadrant incision. He states he has returned to normal food. he continues to watch what he is eating to avoid reflux symptoms. He notes normal bowel habits. He notes the stabbing sensation is intermittent and comes on without warning. Objective Details: Abdomen- soft, obese. Incisions c/d/i. All steri-strips were removed. No signs of drainage or infection noted. Tenderness to palpation over the middle incision in the left lower quadrant. Coding Level of Care Code Global Post Op Diagnoses Status post laparoscopic procedure Z98.890 [facility] Medical History Gastric reflux Substance abuse Bipolar disorder Smoker Asthma Leg cramps Acid reflux Heart disease COPD (chronic obstructive pulmonary disease) Surgical History History of esophagogastroduodenoscop y (EGD) Hx of hand surgery Social History Smoking Status: Light Smoker (<10/day) alcohol intake: current substance use type: heroin and methamphetamine Assessment and Plan (No Qualifiers) Assessment and Plan (1) Status post laparoscopic procedure: Status: Acute Plan: Patient was referred to Dr. Nicole Barron, appointment scheduled for this , 09/25. Will send in Tramadol to alternate with Tylenol No concern for post-op complication or infection at this time Patient seems to be improving Follow-up as needed 09/22/24 1128 Date Leisa WATERMAN PA-C Cosigner Signature: Date (if applicable) CC: MAYCOL DITCHING MACHINE ENGINEER-C Jennifer Mathur [facility] Abdomen/Pelvis W IV Cont ONL Yon 09-17-2024 Abdomen/Pelvis W IV Cont ONLY [facility] Imaging Services [address] [place] [address] [id number] Abdomen/Pelvis W IV Cont ONLY MR#: [id number] Acct: [id number] Name: AMADO MARINELLI VANDANA Rep #: [id number] : 1990 M 33 From: Blayne greco MD PCP: MAYCOL Jenkins, DITCHING MACHINE ENGINEER-C Status: REG ER Study: Abdomen/Pelvis W IV Cont ONLY Date of Exam: Exam# [id number] Ordering Dr: Luther San MD [id number] STUDY: CT ABDOMEN AND PELVIS WITH CONTRAST REASON FOR EXAM: Male, 33 years old. Diffuse abd pain post op RADIATION DOSAGE (If Supplied By Facility): CTDIvol = ( 13.27 ) mGy, DLP = ( 1103.85 ) mGycm TECHNIQUE: Transaxial images were obtained from the dome of the diaphragm to the symphysis pubis without oral contrast. IV 100mL Isovue-300 was administered. Sagittal and coronal images were reconstructed. Individualized dose optimization techniques were used for this CT. COMPARISON: Comparison is made with prior study dated July 20, 2015. FINDINGS: Mild degree of increased linear markings at the lung bases suggestive of bibasilar atelectasis. This is slightly more prominent at the right lung base. The visualized portions of the heart are within normal limits. Normal liver. Normal gallbladder and extrahepatic biliary system. Normal spleen. Normal pancreas. Normal bilateral adrenal glands. Normal right kidney. Normal left kidney. Normal visualized stomach. Normal small intestine. Normal colon. The appendix is visualized and appears normal. Small amount of free air is seen within the anterior peritoneal fat. Normal abdominal aorta. Normal inferior vena cava. Normal retroperitoneum. The urinary bladder is distended. Normal abdominal wall. Straightening of the normal lumbar lordosis. CT/Abdomen/Pelvis W IV Cont ONLY IMPRESSION: Small amount of free air is seen in the anterior peritoneal fat. The patient has a history of recent laparoscopic intervention and this may be related to the recent procedure. No acute abnormality is seen. Distended urinary bladder. Electronically Signed: Blayne Barclay MD at 12:28 EST , CC: [facility] Mathur; Dr. Luther San MD Book Canvasser: Signed Normal [facility] Absolute neutrophil countOrd ered By: Luther San on 09-17-2024 Neutrophils (Bld) [#/Vol] 3.6 10*3/uL 2.0-7.7 [facility] Albumin to globulin ratioOrd ered By: Luther San on 09-17-2024 Albumin/Globulin [Mass ratio] 1.2 {ratio} 0.9-2.4 [facility] Basophil percentageOrdered B y: Luther San on 09-17-2024 Basophils/100 WBC (Bld) 0.7 % 0-1 [facility] Bilirubin, totalOrdered By: Luther San on 09-17-2024 Bilirubin [Mass/Vol] 0.50 mg/dL 0.20-1.00 [facility] Comment on above: For patients on eltr ombopag therapy, use of Dimension [place] TBIL is not recommended. Blood urea nitrogen (BUN)/cr eatinine ratioOrdered By: Luther San on 09-17-2024 Urea nitrogen/Creatinine [Mass ratio] 14.6 mg/mg 10-20 [facility] CBC W/Diff, Automatedon Absolute Lymph 2.36 X10 3/uL Normal 0.83-4.51 [facility] Comment on above: Performed By: #### L 501.2450, L100.0100, L500.4050 ####[facility] [address] [place], [address] Absolute Neut 3.6 X10 3/uL Normal 2.0-7.7 [facility] Comment on above: Performed By: #### L 501.2450, L100.0100, L500.4050 ####[facility] [address] [place], [address] Basophils/100 WBC (Bld) 0.7 % Normal 0-1 [facility] Comment on above: Performed By: #### L 501.2450, L100.0100, L500.4050 ####[facility] [address] [place], [address] Eosinophils/100 WBC (Bld) 2.6 % Normal 0-5 Martin [facility] Comment on above: Performed By: #### L 501.2450, L100.0100, L500.4050 ####[facility] [address] [place], [address] Erythrocyte distribution width (RBC) [Ratio] 13.2 % Normal 11.6-14.6 [facility] Comment on above: Performed By: #### L 501.2450, L100.0100, L500.4050 ####[facility] [address] [place], [address] Hematocrit (Bld) [Volume fraction] 47.2 % Normal 40-54 [facility] Comment on above: Performed By: #### L 501.2450, L100.0100, L500.4050 ####[facility] [address] [place], [address] Hemoglobin (Bld) [Mass/Vol] 16.6 g/dL High 13.0-16.5 [facility] Comment on above: Performed By: #### L 501.2450, L100.0100, L500.4050 ####[facility] [address] [place], [address] IG% 0.600 Normal 0.0-0.9 [facility] Comment on above: Result Comment: IG% - Immature Granulocytes (promyelocytes, myelocytes and metamyelocytes) > 1% indicates that a LEFT SHIFT is Present. Performed By: #### L 501.2450, L100.0100, L500.4050 ####[facility] [address] [place], [address] Lymphocytes/100 WBC (Bld) 34.6 % Normal 19-41 [facility] Comment on above: Performed By: #### L 501.2450, L100.0100, L500.4050 ####[facility] [address] [place], [address] MCH (RBC) [Entitic mass] 28.6 pg Normal 27.0-32.0 [facility] Comment on above: Performed By: #### L 501.2450, L100.0100, L500.4050 ####[facility] [address] [place], [address] MCHC (RBC) [Mass/Vol] 35.2 g/dL Normal 32-36 [facility] Comment on above: Performed By: #### L 501.2450, L100.0100, L500.4050 ####[facility] [address] [place], [address] MCV (RBC) [Entitic vol] 81.4 fL Normal 80-94 [facility] Comment on above: Performed By: #### L 501.2450, L100.0100, L500.4050 ####[facility] [address] [place], [address] Monocytes/100 WBC (Bld) 8.2 % Normal 0-10 [facility] Comment on above: Performed By: #### L 501.2450, L100.0100, L500.4050 ####[facility] [address] [place], [address] Neutrophils/100 WBC (Bld) 53.3 % Normal 47-70 [facility] Comment on above: Performed By: #### L 501.2450, L100.0100, L500.4050 ####[facility] [address] [place], [address] Nucleated RBC (Bld) [#/Vol] 0 10*3/uL Normal 0-5 [facility] Comment on above: Performed By: #### L 501.2450, L100.0100, L500.4050 ####[facility] [address] [place], [address] Platelet mean volume (Bld) [Entitic vol] 10.8 fL Normal 6.2-12.0 [facility] Comment on above: Performed By: #### L 501.2450, L100.0100, L500.4050 ####[facility] [address] [place], [address] Platelets (Bld) [#/Vol] 235 10*3/uL Normal 150-450 [facility] Comment on above: Performed By: #### L 501.2450, L100.0100, L500.4050 ####[facility] [address] [place], [address] RBC (Bld) [#/Vol] 5.80 10*6/uL Normal 4.6-6.2 [facility] Comment on above: Performed By: #### L 501.2450, L100.0100, L500.4050 ####[facility] [address] [place], [address] RDW SD 39.0 fl Normal 35.1-43.9 [facility] Comment on above: Performed By: #### L 501.2450, L100.0100, L500.4050 ####[facility] [address] [place], [address] WBC (Bld) [#/Vol] 6.8 10*3/uL Normal 4.4-11.0 [facility] Comment on above: Performed By: #### L 501.2450, L100.0100, L500.4050 ####[facility] [address] [place], [address] Carbon dioxide measurementOr dered By: Luther San on 09-17-2024 CO2 [Moles/Vol] 28.0 mmol/L 21.0-32.0 [facility] Chloride measurementOrdered By: Luther San on 09-17-2024 Chloride [Moles/Vol] 103 mmol/L 98-107 [facility] Comprehensive Metabolic Prof ilon 09-17-2024 Albumin [Mass/Vol] 3.9 g/dL Normal 3.2-5.0 [facility] Comment on above: Performed By: #### L 501.2450, L100.0100, L500.4050 ####[facility] [address] [place], [address] Albumin/Globulin [Mass ratio] 1.2 {ratio} Normal 0.9-2.4 [facility] Comment on above: Performed By: #### L 501.2450, L100.0100, L500.4050 ####[facility] [address] [place], [address] ALK P 75 U/L Normal 45-117 [facility] Comment on above: Performed By: #### L 501.2450, L100.0100, L500.4050 ####[facility] [address] [place], [address] ALT [Catalytic activity/Vol] 68 U/L High 16-61 [facility] Comment on above: Performed By: #### L 501.2450, L100.0100, L500.4050 ####[facility] [address] [place], [address] AST [Catalytic activity/Vol] 24 U/L Normal 15-37 [facility] Comment on above: Performed By: #### L 501.2450, L100.0100, L500.4050 ####[facility] [address] [place], [address] Bilirubin [Mass/Vol] 0.50 mg/dL Normal 0.20-1.00 [facility] Comment on above: Result Comment: For patients on eltrombopag therapy, use of Dimension [place] TBIL is not recommended. Performed By: #### L 501.2450, L100.0100, L500.4050 ####[facility] [address] [place], [address] BUN/CRE 14.6 RATIO Normal 10-20 [facility] Comment on above: Performed By: #### L 501.2450, L100.0100, L500.4050 ####[facility] [address] [place], [address] CA,Total 9.4 mg/dL Normal 8.5-10.1 [facility] Comment on above: Performed By: #### L 501.2450, L100.0100, L500.4050 ####[facility] [address] [place], [address] Chloride [Moles/Vol] 103 mmol/L Normal 98-107 [facility] Comment on above: Performed By: #### L 501.2450, L100.0100, L500.4050 ####[facility] [address] [place], [address] CO2 [Moles/Vol] 28.0 mmol/L Normal 21.0-32.0 [facility] Comment on above: Performed By: #### L 501.2450, L100.0100, L500.4050 ####[facility] [address] [place], [address] Creatinine [Mass/Vol] 0.96 mg/dL Normal 0.70-1.30 [facility] Comment on above: Result Comment: The validity of the calculated GFR GFRAA in patients over 70 years has not been determined. Clinical correlation is essential. Performed By: #### L 501.2450, L100.0100, L500.4050 ####[facility] [address] [place], [address] ECRCL 134.40 ml/min Normal [facility] Comment on above: Performed By: #### L 501.2450, L100.0100, L500.4050 ####[facility] [address] [place], [address] EST GFR - AA 115 mL/min Normal >60 [facility] Comment on above: Result Comment: Afri can Cymro GFR Calc Performed By: #### L 501.2450, L100.0100, L500.4050 ####[facility] [address] [place], [address] GAP 5 Normal 5-15 [facility] Comment on above: Performed By: #### L 501.2450, L100.0100, L500.4050 ####[facility] [address] [place], [address] GFR/1.73 sq M.predicted among non-blacks MDRD (S/P/Bld) [Vol rate/Area] 95 mL/min/{1.73_m2} Normal >60 [facility] Comment on above: Result Comment: Non- GFR Calc Performed By: #### L 501.2450, L100.0100, L500.4050 ####[facility] [address] [place], [address] Globulin (S) [Mass/Vol] 3.2 g/dL Normal 2.2-4.2 [facility] Comment on above: Performed By: #### L 501.2450, L100.0100, L500.4050 ####[facility] [address] [place], [address] Glucose [Mass/Vol] 148 mg/dL High 74-106 [facility] Comment on above: Result Comment: Fast ing Glucose result greater than or equal to 126 mg/dL suggests DIABETES MELLITUS per A.D.A. criteria. Performed By: #### L 501.2450, L100.0100, L500.4050 ####[facility] [address] [place], [address] Potassium [Moles/Vol] 3.8 mmol/L Normal 3.5-5.1 [facility] Comment on above: Performed By: #### L 501.2450, L100.0100, L500.4050 ####[facility] [address] [place], [address] Sodium [Moles/Vol] 136 mmol/L Normal 136-145 [facility] Comment on above: Performed By: #### L 501.2450, L100.0100, L500.4050 ####[facility] [address] [place], [address] T PROT 7.1 g/dL Normal 6.4-8.2 [facility] Comment on above: Performed By: #### L 501.2450, L100.0100, L500.4050 ####[facility] [address] [place], [address] Urea nitrogen [Mass/Vol] 14 mg/dL Normal 7-18 [facility] Comment on above: Performed By: #### L 501.2450, L100.0100, L500.4050 ####[facility] [address] [place], [address] Emergency Department Summary on 09-17-2024 Emergency Department Summary [facility] Medical Records Department [address] [place] [address] Emergency Department Summary 09/17/24 MR#: [id number] Acct: [id number] Name: AMADO MARINELLI Rep #: [id number] : 1990 33 From: Luther San MD PCP: MAYCOL Jenkins, DITCHING MACHINE ENGINEER-C Status:DEP ER Location: ED HPI HPI - GI History of Present Illness Chief Complaint: Abd Pain Informant: patient Abdominal Pain/Flank Pain Onset: Today and Yesterday Context: Gradual Onset Timing: Continuous Quality: Aching, Sharp and Stabbing Location: Diffuse Current Severity: Moderate Maximum Severity: Moderate Worsened by: Nothing Relieved by: Nothing Nausea/Vomiting/Emesis GI Symptom: Negative for Nausea or Vomiting Diarrhea/Melena/Hematoche tammie GI Symptom: Positive for - (Movement today.); Negative for Diarrhea, Melena or Hematochezia Associated Symptoms Associated Symptoms: Positive for - (No difficulty urinating.); Negative for Dysuria, Frequency, Hematuria or Urgency Narrative Narrative: 33-year-old male history of COPD and bipolar. On September 15 he was having an exploratory laparoscopy done for possible Maxwell fundoplication. 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 They may have aborted the procedure because that. He was sent home with pain medication and was instructed to use Tylenol also. He was told to return if he is having worse pain he states last night he started having worse abdominal pain. He denies nausea or vomiting. He denies diarrhea or constipation. He denies fever or chills. States he had a bowel movement today. He has been urinating fine. Denies any prior abdominal surgeries otherwise. Prior similar symptoms: No Recent Illness/Hospitalization: No PFSH PFS Medical History Gastric reflux Substance abuse Bipolar disorder Smoker Asthma Leg cramps Acid reflux Heart disease COPD (chronic obstructive pulmonary disease) Home Medications ???Medication ???Instructions ???Recorded ???Last Taken ???Type aspirin 81 mg tablet,delayed 81 mg PO QDAY 06/10/24 09/08/24 History release hydroxyzine HCl 50 mg tablet 50 mg PO BID 06/10/24 09/12/24 History quetiapine 50 mg tablet,extended 50 mg PO QHS 06/10/24 09/13/24 History release 24 hr omeprazole 40 mg capsule,delayed 40 mg PO BID 08/05/24 09/13/24 History release oxycodone 5 mg tablet 5 mg PO Q6H PRN pain 5 days #10 09/15/24 Unknown Rx tabs trazodone 50 mg tablet 50 mg PO QPM 09/17/24 Unknown History Allergy/AdvReac Type Severity Reaction Status Date / Time Penicillins Allergy Hives Verified 09/17/24 11:05 ibuprofen AdvReac Nausea Verified 09/17/24 11:05 Surgical History History of esophagogastroduodenoscop y (EGD) Hx of hand surgery Social History Smoking Status: Light Smoker (<10/day) alcohol intake: current substance use type: heroin and methamphetamine ROS ROS ED ROS Narrative Abdominal pain. Constitutional Constitutional ED: Denies chills or fever(s) ENT ENT ED: Denies ear pain Cardiovascular Cardiovascular: Denies chest pain Respiratory/Chest Respiratory/Chest: Denies cough or dyspnea Gastrointestinal Gastrointestinal: Reports abdominal pain; Denies constipation, diarrhea, melena, nausea or vomiting Genitourinary Genitourinary ED: Denies dysuria or hematuria Musculoskeletal Musculoskeletal: Denies arthralgias or back pain Integumentary Denies abscess or Abrasions Neurologic Neurologic: Denies headache(s) or paresthesias Psychiatric Psychiatric: Denies anxiety, depression or suicidal thoughts Endocrine Endocrinology: Denies polydipsia, polyphagia or polyuria Hematologic/Lymphatic Hematologic/Lymphatic: Denies easy bleeding, easy bruising or lymphadenopathy Allergic/Immunologic Allergic/Immunologic ED: Denies mouth swelling or tongue swelling EXAM Physical Exam Narrative Exam Narrative: 33-year-old male vital signs stable afebrile. Does not look septic toxic. Plan abdominal pain. Otherwise no distress. H EENT exam unremarkable. Poor dentition. Neck nontender. Lungs clear to auscultation. Heart regular rhythm rate about 80 no murmur. Abdomen soft. Diffusely tender. Well-healing laparoscopic incisions. When I palpate his abdomen he grabs my hand to remove it due to discomfort. I do not see any hernias. I do not feel mass. Moving all 4 extremities. Nontender. No edema. Back nontender. He is awake and alert. No focal motor deficits. Const Vital Signs: 09/17/24 11:03 Temperature 97.1 F L Temperature Source Temporal Pulse Rate 82 Respiratory Rate 20 H Blood Pressure 156/89 H Blood Pressure Mean 111 Pulse Ox 99 Oxygen Del (more content not included)... Normal [facility] Eosinophil percentageOrdered By: Luther San on 09-17-2024 Eosinophils/100 WBC (Bld) 2.6 % 0-5 [facility] Erythrocyte distribution wid th (RBC) [Ratio]Ordered By: Luther San on 09-17-2024 Erythrocyte distribution width (RBC) [Entitic vol] 39.0 fL 35.1-43.9 [facility] Erythrocyte distribution wid th ratioOrdered By: Luther San on 09-17-2024 Erythrocyte distribution width (RBC) [Ratio] 13.2 % 11.6-14.6 [facility] Estimated glomerular filtrat ion rate (GFR) AmericanOrdered By: Luther San on 09-17-2024 Estimated GFR (MDRD) Amer 115 mL/min >60 [facility] Comment on above: GFR Calc Estimation of creatinine shirley aranceOrdered By: Luther San on 09-17-2024 Estimated Creatinine Clearance Calc 134.40 ml/min [facility] Glomerular filtration rate ( GFR) estimationOrdered By: Luther San on 09-17-2024 Estimated GFR (MDRD) Non-Af Amer 95 mL/min >60 [facility] Comment on above: Non- GFR Calc Glucose measurementOrdered B y: Luther San on 09-17-2024 Glucose [Mass/Vol] 148 mg/dL High 74-106 [facility] Comment on above: Fasting Glucose resu lt greater than or equal to 126 mg/dL suggests DIABETES MELLITUS per A.D.A. criteria. Hematocrit Auto (Bld) [Volum e fraction]Ordered By: Luther San on 09-17-2024 Hematocrit (Bld) [Volume fraction] 47.2 % 40-54 [facility] Hemoglobin measurementOrdere d By: Luther San on 09-17-2024 Hemoglobin (Bld) [Mass/Vol] 16.6 g/dL High 13.0-16.5 [facility] Immature granulocytes/100 WB C Auto (Bld)Ordered By: Luther San on 09-17-2024 Immature granulocytes/100 WBC (Bld) 0.600 % 0.0-0.9 [facility] Comment on above: IG% - Immature Granu locytes (promyelocytes, myelocytes and metamyelocytes) > 1% indicates that a LEFT SHIFT is Present. Laboratory - Chemistry and C hemistry - challengeOrdered By: Luther San on 09-17-2024 AST [Catalytic activity/Vol] 24 U/L 15-37 [facility] Lipaseon 09-17-2024 Lipase [Catalytic activity/Vol] 27 U/L Normal 13-75 [facility] Comment on above: Result Comment: Kaia kimball note: LIPASE revised reference range effective 22. New Lipase methodology. Expected to produce lower values than the previous assay method. NEW Reference Range: 13 - 75 U/L Performed By: #### L 501.2450, L100.0100, L500.4050 ####[facility] [address] [place], [address] Lipase measurementOrdered By : Luther San on 09-17-2024 Lipase [Catalytic activity/Vol] 27 U/L 13-75 [facility] Comment on above: Please note:LIPASE r evised reference range effective 22. New Lipase methodology. Expected to produce lower values than the previous assay method. NEW Reference Range: 13 - 75 U/L Lymphocytes Auto (Unsp spec) [#/Vol]Ordered By: Luther San on 09-17-2024 Lymphocytes (Bld) [#/Vol] 2.36 10*3/uL 0.83-4.51 [facility] Lymphocytes/100 WBC Auto (Un sp spec)Ordered By: Luther San on 09-17-2024 Lymphocytes/100 WBC (Bld) 34.6 % 19-41 [facility] MCV (mean corpuscular volume ) determinationOrdered By: Luther San on 09-17-2024 MCV (RBC) [Entitic vol] 81.4 fL 80-94 [facility] Mean corpuscular hemoglobin (MCH) determinationOrdered By: Luther San on 09-17-2024 MCH (RBC) [Entitic mass] 28.6 pg 27.0-32.0 [facility] Mean corpuscular hemoglobin concentration (MCHC) determinationOrdered By: Luther San on 09-17-2024 MCHC (RBC) [Mass/Vol] 35.2 g/dL 32-36 [facility] Mean platelet volume determi nationOrdered By: Luther San on 09-17-2024 Platelet mean volume (Bld) [Entitic vol] 10.8 fL 6.2-12.0 [facility] Monocyte percentageOrdered B y: Luther San on 09-17-2024 Monocytes/100 WBC (Bld) 8.2 % 0-10 [facility] Neutrophil percentageOrdered By: Luther San on 09-17-2024 Neutrophils/100 WBC (Bld) 53.3 % 47-70 [facility] Nucleated red blood cell per centageOrdered By: Luther San on 09-17-2024 Nucleated RBC/100 WBC (Bld) [Ratio] 0 % 0-5 [facility] Platelet countOrdered By: Sudhir San on 09-17-2024 Platelets (Bld) [#/Vol] 235 10*3/uL 150-450 [facility] Potassium measurementOrdered By: Luther San on 09-17-2024 Potassium [Moles/Vol] 3.8 mmol/L 3.5-5.1 [facility] RBC Auto (Bld) [#/Vol]Ordere d By: Luther San on 09-17-2024 RBC (Bld) [#/Vol] 5.80 10*6/uL 4.6-6.2 [facility] Serum anion gap measurementO rdered By: Luther San on 09-17-2024 Anion gap [Moles/Vol] 5 mmol/L 5-15 [facility] Serum globulin measurementOr dered By: Luther San on 09-17-2024 Globulin (S) [Mass/Vol] 3.2 g/dL 2.2-4.2 [facility] Serum or plasma alanine sheehan otransferase (ALT) measurementOrdered By: Luther San on 09-17-2024 ALT [Catalytic activity/Vol] 68 U/L High 16-61 [facility] Serum or plasma albumin jeff urement (mass/volume)Ordered By: Luther San on 09-17-2024 Albumin [Mass/Vol] 3.9 g/dL 3.2-5.0 [facility] Serum or plasma alkaline kaitlin sphatase measurementOrdered By: Luther San on 09-17-2024 ALP [Catalytic activity/Vol] 75 U/L 45-117 [facility] Serum or plasma calcium jeff urement (mass/volume)Ordered By: Luther San on 09-17-2024 Calcium [Mass/Vol] 9.4 mg/dL 8.5-10.1 [facility] Serum or plasma creatinine m easurement (mass/volume)Ordered By: Luther San on 09-17-2024 Creatinine [Mass/Vol] 0.96 mg/dL 0.70-1.30 [facility] Comment on above: The validity of the calculated GFR & GFRAA in patients over 70 years has not been determined. Clinical correlation is essential. Serum or plasma urea nitroge n measurement (mass/volume)Ordered By: Luther San on 09-17-2024 Urea nitrogen [Mass/Vol] 14 mg/dL 7-18 [facility] Sodium levelOrdered By: Luther San on 09-17-2024 Sodium [Moles/Vol] 136 mmol/L 136-145 [facility] Total proteinOrdered By: Claudy San on 01-08-2025 Protein [Mass/Vol] 7.1 g/dL 6.4-8.2 [facility] White blood cell (WBC) count Ordered By: Luther San on 09-17-2024 WBC (Bld) [#/Vol] 6.8 10*3/uL 4.4-11.0 [facility] Discharge Instructionon Discharge Instruction [facility] Medical Records Department [address] [place] [address] Instructions for Home/Discharge Instructions 09/15/24 0941 MR#: [id number] Acct: [id number] Name: AMADO MARINELLI Rep #: [id number] : 1990 33 From: Sancho Rodriguez MD PCP: MAYCOL Jenkins, DITCHING MACHINE ENGINEER-C Status:REG [facility] Discharge Instructions Diet Discharge Diet: Light diet - advance as tolerated Activity Discharge Activity: Return to Normal Activity, May Drive (in 2-3 days) and May Shower Lifting Restrictions: 15 lbs for 1 week Dressing / Incision Call your doctor if your incision/area has: Continuous Slow Oozing, Sudden Increased Bleeding, Increased Pain/ Swelling, Increased Redness, Foul Smelling Discharge and Swelling at the incision site Call your doctor if you observe: Fever of 101 or Higher Remove Dressing in: 2 days Cleanse incision/area with: Soap Water Follow Up Care Please Follow Up With: Sancho Rodriguez MD When: I will make referral to Dr Matthew at [facility] Test Results: Test results from this visit will be discussed in further detail at your follow-up appointment, if applicable. Discharge Plan Admission Attending Provider: Sancho Rodriguez Primary Care Provider: Jennifer Mathur Instructions Print Language: Afghan Discharge Orders/Prescriptions Prescriptions: New oxycodone 5 mg tablet 5 mg PO Q6H PRN (Reason: pain) 5 Days Qty: 10 0RF No Action quetiapine 50 mg tablet extended release 24 hr 50 mg PO QHS hydroxyzine HCl 50 mg tablet 50 mg PO BID aspirin 81 mg tablet,delayed release (DR/EC) 81 mg PO QDAY omeprazole 40 mg capsule,delayed release(DR/EC) 40 mg PO BID Other Ambulatory Orders: 12 Lead EKG (Routine) Timeframe: [id number] Location: None Selected Ordered By: Dr. Noe Simon Referrals / Follow Up: Jennifer Mathur, DITCHING MACHINE ENGINEER-C [Primary Care Provider] - Disposition Disposition (needs filled in before D/C Order can be placed): Home, Self Care 09/15/24 0944 Sancho Rodriguez MD CC: [facility] DITCHING MACHINE ENGINEER-C Jennifer Mathur Signed [facility] MR/POSTOP.ANEon 09-15-2024 MR/POSTOP.[facility] Medical Records Department [address] [place] [address] Anesthesia Postop Eval I 09/15/24 0942 MR#: [id number] Acct: [id number] Name: AMADO MARINELLI VANDANA Rep #: [id number] : 1990 33 From: Disha Amaya CRNA PCP: MAYCOL Jenkins, DITCHING MACHINE ENGINEER-C Status:REG SDC Y Race: C Location: [place] [address] Anesthesia: Postop Eval I Current Vital Signs Temperature: 97.6 F Pulse Rate: 90 Blood Pressure: 118/88 Respiratory Rate: 18 Pulse Ox: 96 Oxygen Delivery Method: Simple Mask Oxygen Flow Rate (L/min): 6 Assessment Airway patent: Yes Spontaneous unlabored respirations: Yes Mental status: Awake and Calm nausea: No Vomiting: No Anesthesia Complication: No Fluid Hydration Crystalloid volume administer (ml): 800 Total IV fluid infused: 800 Progress Note Anesthesia document: Postop Eval 1 completed: Yes 09/15/24 0943 Date Disha Amaya CRNA Cosigner Signature: Date CC: Signed [facility] MR/[id number] 09-15-2024 MR/POSTOPAN2 [facility] Medical Records Department [address] [place] [address] Anesthesia Postop Eval II 09/15/24 1043 MR#: [id number] Acct: [id number] Name: AMADO MARINELLI Rep #: [id number] : 1990 33 From: Noe Simon MD PCP: Jennifer Mathur [facility], DITCHING MACHINE ENGINEER-C Status:REG SDC Y Race: C Location: [facility]- Anesthesia Postop Eval I Sum Postop Eval Completion status Anesthesia document: Postop Eval 1 completed: Yes Anesthesia Postop Eval I Summary Anesthesia Postop Eval I Summary: Anesthesia Postop Eval I: Assessment Summary Airway patent Yes 09/15/24 09:43 INJURY/SAFETY HAZARD ASSESSMENT.SKOBY Spontaneous unlabored Yes 09/15/24 09:43 INJURY/SAFETY HAZARD ASSESSMENT.SKOBY respirations Mental status Awake,Calm 09/15/24 09:43 INJURY/SAFETY HAZARD ASSESSMENT.SKOBY nausea No 09/15/24 09:43 INJURY/SAFETY HAZARD ASSESSMENT.SKOBY Vomiting No 09/15/24 09:43 INJURY/SAFETY HAZARD ASSESSMENT.SKOBY Anesthesia Postop Eval I: Fluid Summary Crystalloid volume administer 800 09/15/24 09:43 INJURY/SAFETY HAZARD ASSESSMENT.SKOBY (ml) Colloids volume administered ( ml) Blood Product volume administered (ml) Total IV fluid infused 800 09/15/24 09:43 INJURY/SAFETY HAZARD ASSESSMENT.SKOBY Anesthesia Postop Eval I: Summary Notes Anesthesia Complication No 09/15/24 09:43 INJURY/SAFETY HAZARD ASSESSMENT.SKOBBirdie Anesthesia Complication Comment: Post-operative progress note Anesthesia: Postop Eval II Evaluation Mental status: Awake Pain Level: 0 nausea: No Vomiting: No 09/15/24 1043 Date Noe Simon MD Cosigner Signature: Date CC: Signed Normal [facility] Operative Reporton 5 Operative Report [facility] Medical Records Department [address] [place] [address] Operative Report 09/15/24 0933 MR#: [id number] Acct: [id number] Name: AMADO MARINELLI Rep #: [id number] : 1990 33 From: Sancho Rodriguez MD PCP: Jennifer Mathur, [facility], DITCHING MACHINE ENGINEER-C Status:REG [facility] Location: [place] [address] Operative Report (Standard) Operative Information Date of Procedure: 09/15/24 Pre-Operative Diagnosis: GERD Post-Operative Diagnosis: Same Surgery/Procedure Performed: Exploratory laparoscopy workforce management consultant: Yes District Manager In Training: Neeta Busch Tasks completed by therapy administrative assistant: Opening and Closing Type of Anesthesia: General/Regional RN Documented Start/Stop Times: Operation Date: 09/15/24 07:30 Case Time Into Pre-Op 09/15/24 06:04 Out of Pre-Op 09/15/24 07:27 Anesthesia Start 09/15/24 07:32 Into Room 09/15/24 07:32 Procedure Start 09/15/24 08:07 Procedure End 09/15/24 09:29 Procedure Start Time: 08:07 Procedure Stop Time: 09:29 Select all DRAINS/GRAFTS/IMPLANTS that apply: None Estimated Blood Loss: 5 Specimen collected: No Description of surgery: The patient was brought back to the operating room and general anesthesia was induced. The abdomen was prepped and draped in usual sterile fashion. A midline incision was made superior to the umbilicus and a Veress needle was placed into the abdomen and a drop test was performed. The abdomen is insufflated to 15 mmHg. The Veress needle was removed and a port was placed into the abdomen. The camera was placed into the abdomen. An epigastric port was placed and then removed. The Chasidy liver retractor was placed through the incision and elevated the left lobe of the liver and was locked in place. Next under direct visualization 3 more 8 mm ports were placed in a line across the abdomen. Next the robot was docked. 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 Unsure if this is a replaced gastric or replaced right hepatic but the vessel appeared very large. I attempted to dissect underneath the vessel and the crura was unable to be dissected from below the vessel. I also attempted to dissect above the vessel but I was unable to get into the right plane to get around the esophagus. At this point I decided to abort the surgery as I was unable to find a good plane to gain the length on the esophagus and I did not want to break the virgin planes if I could not complete the procedure due to the vessel. The short gastrics on the greater curvature were not taken down. The only dissection performed was over the right crura. I will refer him to a tertiary center for repeat attempt Maxwell fundoplication. Surgical Findings: Large replaced vessel crossing over the lesser curvature at the GE junction Complications Complications: No Admit VTE Documentation VTE Mechan Device Prophylaxis: SCD's 09/15/24 0941 Cosigner Signature (if applicable): CC: [facility] DITCHING MACHINE ENGINEER-C Jennifer Mathur; Dr. Sancho Rodriguez MD Signed Normal [facility] Medical Records Department [address] [place] [address] PAT - Anesthesia 09/04/24 1312 MR#: [id number] Acct: [id number] Name: AMADO MARINELLI Rep #: [id number] : 1990 33 From: Naresh Jones MD PCP: Jennifer Mathur, [facility], DITCHING MACHINE ENGINEER-C Status:PRE [facility] Y Race: C Location: [facility] Pre-Assessment Diagnosis/Proposed Procedure Planned Operative Procedure(s): Robotic Laparoscopic, Maxwell Fundoplication Anesthesia History Anesthesia History - product marketing specialist: Anesthesia History - product marketing specialist Hx Hospitalization No 08/29/24 14:50 Any Problems With Anesthesia No 08/29/24 14:50 Cholinesterase deficiency No 08/29/24 14:50 You/Your Family Experience No 08/29/24 14:50 fever (hyperthermia) with Relationship Recent Exposure to Contagious No 07/22/24 10:12 Disease Does patient have nerve No 08/29/24 14:50 stimulator Patient instructed to have device shut off --Does patient have Pacemaker or ICD? When Was Last Pacemaker Check QUESTION #4 FULL TEXT: You/Your Family Experience fever (hyperthermia) with Anesthesia Last Oral Intake Last Oral intake: Last Oral Intake NPO since Meds taken in AM with sips of water? Meds patient instructed to take am of surgery PONV PONV - product marketing specialist: PONV - product marketing specialist Female No 08/29/24 14:50 HX of Motion Sickness No 08/29/24 14:50 HX of N/V After Surgery No 08/29/24 14:50 Non-Smoker No 08/29/24 14:50 Duration of Surgery greater Yes 08/29/24 14:50 than 60 minutes Number of Risk Factors 1 08/29/24 14:50 PONV Score Low Risk 08/29/24 14:50 Height Weight Height Weight: Anesthesia: Height Weight Height 6 ft 08/05/24 13:36 Respiratory Assessment Respiratory Assessment - product marketing specialist: Respiratory Tract Infection Hx - product marketing specialist Hx Respiratory Tract Infection No 08/29/24 14:50 STOP Sleep Apnea STOP Sleep Apnea - product marketing specialist: STOP Sleep Apnea - product marketing specialist Hx Hypertension No 08/29/24 14:50 Hx Sleep Apnea No 08/29/24 14:50 CPAP No 08/29/24 14:50 BIPAP No 08/29/24 14:50 Do you snore loudly (louder No 08/29/24 14:50 than talking or can be heard Do you often feel tired/ No 08/29/24 14:50 fatigued/ sleepy during daytime? Has anyone observed you stop No 08/29/24 14:50 breathing during sleep? STOP Results Negative 08/29/24 14:50 QUESTION #5 FULL TEXT : Do you snore loudly (louder than talking or can be heard through closed doors)? Tobacco Use History Tobacco Use History - product marketing specialist: Tobacco Use History - product marketing specialist Tobacco Use Smoking Status Current every day smoker 08/29/24 14:50 Hx Tobacco Use Yes 08/29/24 14:50 Years Smoking Packs Smoked per Day Smoking Cessation Date was within the last 15 years Hx Smoking Cessation Date Hx Smoking Cessation No 08/29/24 14:50 Counseling Hematologic Medial History Hematologic Hx - product marketing specialist: Hematologic Medical Hx - rn progressive care Hx of Blood Transfusion No 08/29/24 14:50 Hx of Transfusion in last 3 No 08/29/24 14:50 Months Date of Last Transfusion (if within last 3 months) Ever experience any problems No 08/29/24 14:50 with transfusion(s)? Specify any problems Hx of Preganancy in last 3 N/A 08/29/24 14:50 Months Nurse Filling Out Transfusion MGRIFFITH 08/29/24 14:50 Questions: Date: 08/29/24 08/29/24 14:50 Time: 14:51 08/29/24 14:50 Patient unable to answer at this time (ie. confused, unrespo /Reproduction History /Reproductive History - product marketing specialist: /Reproductive Hx- product marketing specialist Hx Now Gestational Age (in weeks): EDC: Hx Hx Para Hx Section SAB No 08/29/24 14:50 [facility] Medical History (Updated 08/29/24 @ 14:57 by Jaja Forrest) Gastric reflux Substance abuse Bipolar disorder Smoker Asthma Leg cramps Acid reflux Heart disease COPD (chronic obstructive pulmonary disease) Home Medications ???Medication ???Instructions ???Recorded ???Last Taken ???Type aspirin 81 mg tablet,delayed 81 mg PO QDAY 06/10/24 08/26/24 History release hydroxyzine HCl 50 mg tablet 50 mg PO BID 06/10/24 Unknown History quetiapine 50 mg tablet,extended 50 mg PO QHS 06/10/24 Unknown History release 24 hr omeprazole 40 mg capsule,delayed 40 mg PO BID 08/05/24 Unknown History release Allergy/AdvReac Type Severity Reaction Status Date / Time Penicillins Allergy Hives Verified 08/29/24 14:47 ibuprofen AdvReac Nausea Verified 08/29/24 14:47 Surgical History (Updated 08/29/24 @ 14:49 by Jaja Forrest) History of esoph (more content not included)... Normal [facility] 12 Lead EKGon 09-02-2024 12 Lead EKG [facility] Cardiovascular Services [address] [place] [address] 12 Lead EKG 09/02/24 1259 MR#: [id number] Acct: [id number] Name: AMADO MARINELLI Rep #: [id number] : 1990 33 From: Gabriel Arreola MD Attending Dr: Dr. Sancho Rodriguez MD Status: PRE [facility] Ordering Dr: Noe Simon MD Date: 09/02/24 Location: [facility] Sex: M C Admitted: Test Reason : PREOP Blood Pressure : */* mmHG Vent. Rate : 70 BPM Atrial Rate : 70 BPM P-R Int : 152 ms QRS Dur : 102 ms QT Int : 404 ms P-R-T Axes : 66 12 57 degrees QTcB Int : 436 ms Normal sinus rhythm Normal ECG Confirmed by GABRIEL ARREOLA MD ([id number]), videotape editor LEISA GARCIA ([id number]) on 09/04/2024 2:20:04 PM Referred By: Sancho Rodriguez Confirmed By: GABRIEL ARREOLA MD 09/04/24 1420 Date Gabriel Arreola MD CC: [facility] DITCHING MACHINE ENGINEER-C Jennifer Mathur; Dr. Sancho Rodriguez MD; Dr. Noe Simon MD Signed Normal [facility] CBC-Complete Blood Cnt No Di ffon 09-02-2024 Erythrocyte distribution width (RBC) [Ratio] 13.0 % Normal 11.6-14.6 [facility] Comment on above: Performed By: #### L 100.0500 ####[facility] [address] [place], [address] Hematocrit (Bld) [Volume fraction] 49.4 % Normal 40-54 [facility] Comment on above: Performed By: #### L 100.0500 ####[facility] [address] [place], [address] Hemoglobin (Bld) [Mass/Vol] 16.9 g/dL High 13.0-16.5 [facility] Comment on above: Performed By: #### L 100.0500 ####[facility] [address] [place], [address] MCH (RBC) [Entitic mass] 28.6 pg Normal 27.0-32.0 [facility] Comment on above: Performed By: #### L 100.0500 ####[facility] [address] [place], [address] MCHC (RBC) [Mass/Vol] 34.2 g/dL Normal 32-36 [facility] Comment on above: Performed By: #### L 100.0500 ####[facility] [address] [place], [address] MCV (RBC) [Entitic vol] 83.6 fL Normal 80-94 [facility] Comment on above: Performed By: #### L 100.0500 ####[facility] [address] [place], [address] Platelet mean volume (Bld) [Entitic vol] 10.2 fL Normal 6.2-12.0 [facility] Comment on above: Performed By: #### L 100.0500 ####[facility] [address] [place], [address] Platelets (Bld) [#/Vol] 221 10*3/uL Normal 150-450 [facility] Comment on above: Performed By: #### L 100.0500 ####[facility] [address] [place], [address] RBC (Bld) [#/Vol] 5.91 10*6/uL Normal 4.6-6.2 [facility] Comment on above: Performed By: #### L 100.0500 ####[facility] [address] [place], [address] RDW SD 39.5 fl Normal 35.1-43.9 [facility] Comment on above: Performed By: #### L 100.0500 ####[facility] [address] [place], [address] WBC (Bld) [#/Vol] 5.7 10*3/uL Normal 4.4-11.0 [facility] Comment on above: Performed By: #### L 100.0500 ####[facility] [address] [place], [address] Surgery Visit Reporton 08-05 Surgery Visit Report [facility] [address] [place] [address] OFFICE VISIT Date of Service: 08/05/24 MR#: [id number] Acct: [id number] Name: AMADO MARINELLI Rep #: [id number] : 1990 Provider: Dr. Sancho menendez MD Age/Sex: 33/M Location: [facility] Status: Signed Intake Vital Signs 07/22/24 10:12 08/05/24 13:36 Height 6 ft 6 ft Weight: 214 lb BMI 29.0 BP 124/82 H Blood Pressure Location Rt brachial Position Sitting Respiration 16 Intake Visit Reasons: S/P EGD 07-22 Chief Complaint: uncontrolled reflux f/u EGD Pull Worker Required: No Is patient in pain?: No Allergies Penicillins Allergy (Verified 08/29/24 14:47) Hives ibuprofen Adverse Reaction (Verified 08/29/24 14:47) Nausea Medications ???Medication ???Instructions ???Recorded ???Confirmed ???Type aspirin 81 mg tablet,delayed 81 mg PO QDAY 06/10/24 08/29/24 History release hydroxyzine HCl 50 mg tablet 50 mg PO BID 06/10/24 08/29/24 History quetiapine 50 mg tablet,extended 50 mg PO QHS 06/10/24 08/29/24 History release 24 hr omeprazole 40 mg capsule,delayed 40 mg PO BID 08/05/24 08/29/24 History release Have you fallen in the past year?: No PFSH Medical History (Updated 08/29/24 @ 14:57 by Jaja Forrest) Gastric reflux Substance abuse Bipolar disorder Smoker Asthma Leg cramps Acid reflux Heart disease COPD (chronic obstructive pulmonary disease) Surgical History (Updated 08/29/24 @ 14:49 by Jaja Forrest) History of esophagogastroduodenoscop y (EGD) Hx of hand surgery Social History Smoking Status: Current every day smoker tobacco type: cigarettes alcohol intake: current substance use type: heroin and methamphetamine HPI HPI HPI: Patient is here to discuss Maxwell fundoplication. He had EGD. He is still complaining of severe reflux. ROS General General: No weight change, appetite, fatigue, colon cancer, breast cancer or weakness HEENT HEENT: No difficulty swallowing, eye injury, eye surgery, swollen glands or hoarseness Endo Endocrine: No thyroid disease, diabetes mellitus, thyroid cancer, Hair loss, heat intolerance or cold intolerance Skin Skin: No rash or changing moles Musc Musculoskeletal: No back problems, arthritis, rheumatoid arthritis, gout or joint pain Cardio Cardiovascular: Yes heart disease; No murmur, pacemaker, atrial fibrillation, high blood pressure, heart attack, heart stent, palpitations, shortness of breat with exertion or chest pain Psych Psychiatric: Yes depression and anxiety; No hearing voices Resp Respiratory: No shortness of breath, Yes sleep apnea, No cough, Yes COPD, No asthma, No emphysema and No wheezing Gastro Gastrointestinal: No abdominal pain, No nausea or vomiting, No diarrhea, No constipation, No blood in stool, Yes acid reflux, No hemorrhoids, Yes ulcers, No gallbladder problem and No black,tarry stools Steve Hematologic: Yes blood thinners, No blood disorders, No bleeding, No anemia and No blood clots Additional Details: 81mg aspirin Neuro Neurologic: No numbness, No tingling and No weakness Exam Const General: cooperative Orientation: alert and oriented x3 HENMT Head: normal to inspection Neck Neck: normal visual inspection and full ROM Chest Chest palpation inspection: normal inspection of the chest Resp Effort Inspection: normal respiratory effort Auscultation: clear to auscultation bilaterally Cardio Rate: regular rate Rhythm: regular rhythm GI Inspection: non-distended Palpation: soft and nontender Skin General: no rashes or lesions noted Neuro General: patient alert and patient oriented x3 Extrem General: full ROM Psych Appearance: grossly normal Mental Status: mental status grossly normal Assessment and Plan Assessment and Plan (1) Acid reflux: Status: Acute Plan: Patient is having severe acid reflux. I did an EGD to evaluate and he did have some reflux esophagitis. Biopsies were negative for Grande's. The patient will have manometry and then we discussed Maxwell fundoplication. I discussed robotic assisted laparoscopic Maxwell fundoplication with EGD. I discussed the procedure in detail as well as the risks including but not limited to bleeding, infection, injury other organs such as the esophagus, spleen, stomach or liver. Patient understands all the risks and is willing to proceed. Patient will be scheduled for manometry to determine if he will have a full wrap or a toupee and then he will be scheduled for surgery. Sancho Rodriguez MD Pager: [facility] [address] [place] [address] Office: Or (more content not included)... Normal [facility] EGD Reporton 07-22-2024 EGD Report [facility] Medical Records Department [address] [place] [address] EGD Report MR#: [id number] Acct: [id number] Name: AMADO MARINELLI Rep #: [id number] : 1990 33 From: Sancho Rodriguez MD PCP: MAYCOL Jenkins, DITCHING MACHINE ENGINEERYeniferC Status:REG [facility] Patient Name: Amado Marinelli Procedure Date: 07/22/2024 11:00 AM Date of : 1990 Age: 33 Procedure: Upper GI endoscopy Indications: Esophageal reflux Providers: Sancho Rodriguez MD Referring MD: Jennifer Holland, Cigar Binder-c Medicines: Propofol per Anesthesia Patient Profile: This is a 33 year old male. Refer to note in patient chart for documentation of history and physical. Complications: No immediate complications. Estimated blood loss: Minimal. Procedure: Pre-Anesthesia Assessment: - Prior to the procedure, a History and Physical was performed, and patient medications and allergies were reviewed. The patient's tolerance of previous anesthesia was also reviewed. The risks and benefits of the procedure and the sedation options and risks were discussed with the patient. All questions were answered, and informed consent was obtained. Prior Anticoagulants: The patient has taken no anticoagulant or antiplatelet agents. After reviewing the risks and benefits, the patient was deemed in satisfactory condition to undergo the procedure. After obtaining informed consent, the endoscope was passed under direct vision. Throughout the procedure, the patient's blood pressure, pulse, and oxygen saturations were monitored continuously. The gastroscope was introduced through the mouth, and advanced to the second part of duodenum. The upper GI endoscopy was accomplished without difficulty. The patient tolerated the procedure well. Scope In: 11:08:03 AM Scope Out: 11:10:34 AM Total Procedure Duration Time 0 hours 2 minutes 31 seconds Findings: Mildly severe esophagitis was found in the lower third of the esophagus. Biopsies were taken with a cold forceps for histology. The stomach was normal. The examined duodenum was normal. Impression: - Mildly severe reflux esophagitis. Biopsied. - Normal stomach. - Normal examined duodenum. Recommendation: - Discharge patient to home. - Resume previous diet. - Continue present medications. - Await pathology results. - Return to my office in 2 weeks. Procedure Code(s): --- Professional --- 36780, Esophagogastroduodenoscop y, flexible, transoral; with biopsy, single or multiple Diagnosis Code(s): --- Professional --- K21.00, Gastro-esophageal reflux disease with esophagitis, without bleeding CPT copyright 2021 [employer]. All rights reserved. The codes documented in this report are preliminary and upon lead architect review may be revised to meet current compliance requirements. Sancho Rodriguez MD 07/22/2024 11:13:26 AM This report has been signed electronically. Number of Addenda: 0 Note Initiated On: 07/22/2024 11:00 AM 07/22/24 1113 Date Sancho Rodriguez MD Cosigner Signature: Date (if indicated) CC: [facility] DITCHING MACHINE ENGINEER-C Jennifer Mathur; Dr. Sancho Rodriguez MD Date Dictated: 07/22/24 1100 Date Transcribed: Book Canvasser: JEN Signed Normal [facility] MR/POSTOP.Shay 07-22-2024 MR/POSTOP.[facility] Medical Records Department [address] [place] [address] Anesthesia Postop Eval I 07/22/24 1123 MR#: [id number] Acct: [id number] Name: AMADO MARINELLI Rep #: [id number] : 1990 33 From: Candido Mercedes PCP: MAYCOL Jenkins, DITCHING MACHINE ENGINEER-C Status:REG [facility] Y Race: C Location: [place] [address] Anesthesia: Postop Eval I Current Vital Signs Temperature: 97.6 F Pulse Rate: 67 Blood Pressure: 110/78 Respiratory Rate: 12 Pulse Ox: 97 Oxygen Delivery Method: Room Air Assessment Airway patent: Yes Spontaneous unlabored respirations: Yes Mental status: Asleep nausea: No Vomiting: No Anesthesia Complication: No Fluid Hydration Crystalloid volume administer (ml): 30 Total IV fluid infused: 30 Progress Note Anesthesia document: Postop Eval 1 completed: Yes 07/22/24 1124 Date Candido Dickerson Signature: Date CC: Signed Normal [facility] MR/[id number] 07-22-2024 [facility] Medical Records Department [address] [place] [address] Anesthesia Postop Eval II 07/22/24 1401 MR#: [id number] Acct: [id number] Name: AMADO MARINELLI Rep #: [id number] : 1990 33 From: Naresh Jones MD PCP: MAYCOL Jenkins, DITCHING MACHINE ENGINEER-C Status:DEP [facility] Y Race: C Location: [place] Anesthesia Postop Eval I Sum Postop Eval Completion status Anesthesia document: Postop Eval 1 completed: Yes Anesthesia Postop Eval I Summary Anesthesia Postop Eval I Summary: Anesthesia Postop Eval I: Assessment Summary Airway patent Yes 07/22/24 11:23 [email or web address] Spontaneous unlabored Yes 07/22/24 11:23 [email or web address] respirations Mental status Asleep 07/22/24 11:23 [email or web address] nausea No 07/22/24 11:23 [email or web address] Vomiting No 07/22/24 11:23 [email or web address] Anesthesia Postop Eval I: Fluid Summary Crystalloid volume administer 30 07/22/24 11:23 [email or web address] (ml) Colloids volume administered ( ml) Blood Product volume administered (ml) Total IV fluid infused 30 07/22/24 11:24 [email or web address] Anesthesia Postop Eval I: Summary Notes Anesthesia Complication No 07/22/24 11:23 [email or web address] Anesthesia Complication Comment: Post-operative progress note Anesthesia: Postop Eval II Evaluation Mental status: Awake and Calm Pain Level: 0 nausea: No Vomiting: No Complications Anesthesia Complication: No 07/22/24 1402 Date Naresh Dickerson Signature: Date CC: Signed Normal [facility] Special Stain Group Ion 11- Special Stain Group I ------- Patient Age/Sex Location Account Attending Physician AMADO MARINELLI 33/M EN [id number] Dr. Sancho Rodriguez MD Specimen: [id number] Received: 07/22/24-1340 Status: MYKEL Richards Num: [id number] Spec Type: EGD BIOPSY Subm Dr: Dr. Sancho Rodriguez MD HEADER OPERATION: EGD, biopsy PRE-OP DIAGNOSIS: Acid reflux TISSUE SUBMITTED: Gastroesophageal junction biopsy MICROSCOPIC DIAGNOSIS Gastroesophageal junction, biopsy: No pathologic change. No evidence of goblet cell metaplasia. See comment. AM. 07/24/2024 COMMENT Alcian blue/PAS stain with matched control is used in the evaluation of the specimen. MICROSCOPIC DESCRIPTION Slides are reviewed. GROSS DESCRIPTION Received in fixative is one container labeled with the patient's name and designated GE junction biopsy. The specimen consists of multiple irregular fragments of light caceres soft tissue that in aggregate measure 0.6 x 0.2 x 0.1 cm. The specimen is totally submitted in one cassette. [facility] 07/23/2024 TC: 5 [facility]:[id number] Patient Age/Sex Location Account Attending Physician AMADO MARINELLI 33/M EN [id number] Dr. Sancho Rodriguez MD Signed (signature on file) Dr. Damien Pickering DO 07/24/24 1136 Normal [facility] Comment on above: Performed By: #### P SSI ####[facility] [address] [place], [address] [facility] KHADIJAH Office Visit (UCWSTR ) ----- AMADO MARINELLI ([id number]) 1990 M Date Time Provider Department 07/17/24 6:15 PM ALFRED MCKEON [facility] During your visit today, we recorded the following information about you: Temperature Pulse Respiration Blood pressure 98.7 degrees 79/minute 20/minute 123/84 Weight 98 kg Alfred Mckeon APRN.CNP 07/17/2024 6:25 PM Signed Subjective HPI HPI Amado Marinelli is a 33 year old male who presents today for CC of cough, congestion, sob. This started 2 days ago/worsening. Has tried otc medication for relief. Symptoms are worsened by nothing. Risk factors smoker, hx of copd, close exposure to pneumonia/familiy. .Patient presents with: Cough: Headache, chest congestion, tightness in chest, x 2 days PAST MEDICAL HISTORY Diagnosis Date ADHD (attention deficit hyperactivity disorder) Bipolar disorder ([facility]) Depression [facility], history of suicide attempt Genital herpes 04/2013 Polysubstance abuse ([facility]) meth, heroin. Oversoe 07/2019 [facility] Tobacco use disorder PAST SURGICAL HISTORY Procedure Laterality Date HAND SURGERY HX Left 02/18/2018 ALLERGIES Ibuprofen, Naproxen, and Penicillins MEDICATIONS aspirin, enteric coated (ASPIRIN, ENTERIC COATED) 81 mg EC tablet Take 1 tablet by mouth every afternoon. hydrOXYzine HCl (ATARAX) 50 mg tablet Take 1 tablet by mouth every 12 hours. omeprazole (PRILOSEC) 40 mg capsule Take 1 capsule by mouth every 12 hours. QUEtiapine XR (SEROQUEL XR) 50 mg Tb24 Take 50 mg by mouth daily at bedtime. traZODone (DESYREL) 50 mg tablet Take 50 mg by mouth daily at bedtime. ALBUTEROL INHALATION Inhale as instructed. keTORolac (TORADOL) 10 mg tablet Take 1 tablet by mouth every 6 hours as needed. doxycycline monohydrate 100 mg tablet Take 1 tablet by mouth two times a day for 7 days. predniSONE (DELTASONE) 10 mg tablet Take 4 tabs daily for 3 days, then 2 tabs daily for 3 days, then 1 tab daily for 3 days with food. FAMILY HISTORY Problem Relation Age of Onset COPD Father Cancer Father of lung cancer Cancer Paternal Grandfather of lung cancer Cancer Paternal Uncle of lung cancer Psychiatry Mother depression Diabetes Maternal Grandmother Social History Tobacco Use Smoking status: Every Day Current packs/day: 0.50 Average packs/day: 0.5 packs/day for 5.0 years (2.5 ttl pk-yrs) Types: Cigarettes Smokeless tobacco: Current Types: Chew Tobacco comments: started smoking 17yo Vaping Use Vaping status: Never Used Substance Use Topics Alcohol use: No Drug use: No Review of Systems Constitutional: Negative for fever. HENT: Positive for congestion. Negative for ear pain, nosebleeds and sore throat. Respiratory: Positive for cough, sputum production and shortness of breath. Negative for wheezing. Cardiovascular: Negative for chest pain. Musculoskeletal: Negative for neck pain. Skin: Negative for itching and rash. Objective Blood pressure 123/84, pulse 79, temperature 37.1 ?C (98.7 ?F), resp. rate 20, weight 98 kg (216 lb 0.8 oz), SpO2 98%. Physical Exam Constitutional: General: He is not in acute distress. Appearance: He is not toxic-appearing or diaphoretic. HENT: Head: Normocephalic and atraumatic. Cardiovascular: Rate and Rhythm: Normal rate and regular rhythm. Heart sounds: Normal heart sounds, S1 normal and S2 normal. Pulmonary: Effort: Pulmonary effort is normal. Breath sounds: Normal breath sounds. Lymphadenopathy: Cervical: No cervical adenopathy. Right cervical: No superficial cervical adenopathy. Left cervical: No superficial cervical adenopathy. Neurological: Mental Status: He is alert and oriented to person, place, and time. Gait: Gait is intact. ASSESSMENT/PLAN: 1. Sinobronchitis - ICD9: 473.9, 490, ICD10: J32.9, J40 (primary diagnosis) - Will begin treatment with as per antibiotic as written, see orders - Supportive care with plenty of fluids, rest, and analgesia prn. - Follow up in 3-5 days if symptoms persist or worsen. - with pcp. -If you experience chest pain/shortness of breath go to ER - DOXYCYCLINE MONOHYDRATE 100 MG TABLET - PREDNISONE 10 MG TABLET 2. Exposure to pneumonia - ICD9: V01.89, ICD10: Z20.89 Cover with doxy and prednisone 3. History of COPD - ICD9: V12.69, ICD10: Z87.09 - PREDNISONE 10 MG TABLET Alfred Mckeon APRN.[employer] Allergies As of Date: 07/17/2024 Noted Allergy Reaction IBUPROFEN 02/19/2015 8 - GI Upset NAPROXEN 02/19/2015 8 - GI Upset PENICILLINS 04/23/2013 14 - Other: See Comments Comments: Throat started to close up. Date Reviewed: 07/17/2024 Reviewed by: Kerri Burgos LPN - Fully Assessed Reason for Visit: Cough [28] Cmt: Headache, chest congestion, tightness in chest, x 2 days Primary Visit Diagnosis:Sinobronchitis [J32.9, J40] Other Visit Diagnoses:Exposure to pneumonia [Z20.89] History (more content not included)... Normal [facility] Surgery Visit Reporton 06-10 Surgery Visit Report [facility] [address] [place] [address] OFFICE VISIT Date of Service: 06/10/24 MR#: [id number] Acct: [id number] Name: AMADO MARINELLI Rep #: [id number] : 1990 Provider: Dr. Sancho menendez MD Age/Sex: 33/M Location: [facility] Status: Signed Intake Vital Signs 10/24/23 13:32 06/10/24 14:03 Height 6 ft 6 ft Weight: 207 lb 8 oz BMI 28.1 BP 133/86 H Blood Pressure Location Rt brachial Position Sitting Respiration 18 Pulse 76 Pulse Source Monitor Temp 98.5 F Temp Source Temporal Pulse Oximetry (%) 97 Oxygen Delivery Method room air Intake Visit Reasons: UNCONTROLLED REFLUX Chief Complaint: uncontrolled reflux Accompanied by: Mother Is patient in pain?: No Allergies Penicillins Allergy (Verified 06/10/24 14:04) Hives ibuprofen Adverse Reaction (Verified 06/10/24 14:04) Nausea Medications ???Medication ???Instructions ???Recorded ???Confirmed ???Type aspirin 81 mg tablet,delayed 81 mg PO QDAY 06/10/24 06/10/24 History release hydroxyzine HCl 50 mg tablet 50 mg PO BID 06/10/24 06/10/24 History quetiapine 50 mg tablet,extended 50 mg PO QHS 06/10/24 06/10/24 History release 24 hr PFSH Medical History (Updated 06/10/24 @ 14:03 by Christiane Burrows LPN) Acid reflux Heart disease COPD (chronic obstructive pulmonary disease) Surgical History (Updated 06/10/24 @ 14:03 by Christiane Burrows LPN) Hx of hand surgery Social History (Updated 06/10/24 @ 14:03 by Christiane Burrows LPN) Smoking Status: Current every day smoker alcohol intake: current substance use type: heroin and methamphetamine HPI HPI HPI: Patient is a 33-year-old male here for uncontrolled GERD. He has been on a PPI for over a year which has not improved it. He reports that his burning in his chest and he wakes up feeling acid in his mouth. He denies nausea or vomiting. Denies fevers or chills or diarrhea. ROS General General: No weight change, appetite, fatigue, colon cancer, breast cancer or weakness HEENT HEENT: No difficulty swallowing, eye injury, eye surgery, swollen glands or hoarseness Endo Endocrine: No thyroid disease, diabetes mellitus, thyroid cancer, Hair loss, heat intolerance or cold intolerance Skin Skin: No rash or changing moles Musc Musculoskeletal: No back problems, arthritis, rheumatoid arthritis, gout or joint pain Cardio Cardiovascular: Yes heart disease; No murmur, pacemaker, atrial fibrillation, high blood pressure, heart attack, heart stent, palpitations, shortness of breat with exertion or chest pain Psych Psychiatric: Yes depression and anxiety; No hearing voices Resp Respiratory: No shortness of breath, Yes sleep apnea, No cough, Yes COPD, No asthma, No emphysema and No wheezing Gastro Gastrointestinal: No abdominal pain, No nausea or vomiting, No diarrhea, No constipation, No blood in stool, Yes acid reflux, No hemorrhoids, Yes ulcers, No gallbladder problem and No black,tarry stools Steve Hematologic: Yes blood thinners, No blood disorders, No bleeding, No anemia and No blood clots Additional Details: 81mg aspirin Neuro Neurologic: No numbness, No tingling and No weakness Exam Const General: cooperative Orientation: alert and oriented x3 HENMT Head: normal to inspection Neck Neck: normal visual inspection and full ROM Chest Chest palpation inspection: normal inspection of the chest Resp Effort Inspection: normal respiratory effort Auscultation: clear to auscultation bilaterally Cardio Rate: regular rate Rhythm: regular rhythm GI Inspection: non-distended Palpation: soft and nontender Skin General: no rashes or lesions noted Neuro General: patient alert and patient oriented x3 Extrem General: full ROM Psych Appearance: grossly normal Mental Status: mental status grossly normal Assessment and Plan Assessment and Plan (1) Acid reflux: Status: Acute Plan: Patient has severe GERD and he has never had an EGD. He was sent here for evaluation. I have briefly discussed hiatal hernia repair and fundoplication with him. First I will perform an EGD to evaluate. I explained endoscopy in detail to the patient. I explained the risks including but not limited to stroke or heart attack with anesthesia, perforation of the GI tract, bleeding, infection. I explained that any of these could necessitate further emergency surgery. The patient understands and all questions were answered sufficiently. The patient wishes to proceed with procedure. Sancho Rodriguez MD Pager: [facility] [address] [place] [address], [address] [place] [address] Office: Orders: Orders EGD Today (more content not included)... Normal [facility] CBC-Complete Blood Cnt No Di ffon 05-21-2024 Erythrocyte distribution width (RBC) [Ratio] 13.2 % Normal 11.6-14.6 [facility] Comment on above: Performed By: #### L 100.0500, L501.6710, L501.9520, L500.4050, L101.9900 #### [facility] [address] [facility] [id number] [phone] Hematocrit (Bld) [Volume fraction] 47.9 % Normal 40-54 [facility] Comment on above: Performed By: #### L 100.0500, L501.6710, L501.9520, L500.4050, L101.9900 #### [facility] [address] [facility] [address] Hemoglobin (Bld) [Mass/Vol] 16.3 g/dL Normal 13.0-16.5 [facility] Comment on above: Performed By: #### L 100.0500, L501.6710, L501.9520, L500.4050, L101.9900 #### [facility] [address] [place], [address] MCH (RBC) [Entitic mass] 27.8 pg Normal 27.0-32.0 [facility] Comment on above: Performed By: #### L 100.0500, L501.6710, L501.9520, L500.4050, L101.9900 #### [facility] [address] [place], [address] MCHC (RBC) [Mass/Vol] 34.0 g/dL Normal 32-36 [facility] Comment on above: Performed By: #### L 100.0500, L501.6710, L501.9520, L500.4050, L101.9900 #### [facility] [address] [place], [address] MCV (RBC) [Entitic vol] 81.6 fL Normal 80-94 [facility] Comment on above: Performed By: #### L 100.0500, L501.6710, L501.9520, L500.4050, L101.9900 #### [facility] [address] [place], [address] Platelet mean volume (Bld) [Entitic vol] 10.1 fL Normal 6.2-12.0 [facility] Comment on above: Performed By: #### L 100.0500, L501.6710, L501.9520, L500.4050, L101.9900 #### [facility] [address] [place], [address] Platelets (Bld) [#/Vol] 233 10*3/uL Normal 150-450 [facility] Comment on above: Performed By: #### L 100.0500, L501.6710, L501.9520, L500.4050, L101.9900 #### [facility] [address] [place], [address] RBC (Bld) [#/Vol] 5.87 10*6/uL Normal 4.6-6.2 [facility] Comment on above: Performed By: #### L 100.0500, L501.6710, L501.9520, L500.4050, L101.9900 #### [facility] [address] [place], [address] RDW SD 39.3 fl Normal 35.1-43.9 [facility] Comment on above: Performed By: #### L 100.0500, L501.6710, L501.9520, L500.4050, L101.9900 #### [facility] [address] [place], [address] WBC (Bld) [#/Vol] 4.6 10*3/uL Normal 4.4-11.0 [facility] Comment on above: Performed By: #### L 100.0500, L501.6710, L501.9520, L500.4050, L101.9900 #### [facility] [address] [place], [address] CRPon 05-21-2024 C-REACTIVE PROT < 2.90 Normal 0.0-3.0 [facility] Comment on above: Result Comment: C-Re active Protein (CRP) provides useful information for the diagnosis, therapy and monitoring of inflammatory processes and associated diseases. For the evaluation of Relative Risk for Cardiovascular Disease, a High Sensitivity CRP (HSCRP) should be ordered. Performed By: #### L 100.0500, L501.6710, L501.9520, L500.4050, L101.9900 #### [facility] [address] [place], [address] Comprehensive Metabolic Prof ilon 05-21-2024 Albumin [Mass/Vol] 4.0 g/dL Normal 3.2-5.0 [facility] Comment on above: Performed By: #### L 100.0500, L501.6710, L501.9520, L500.4050, L101.9900 #### [facility] [address] [place], [address] Albumin/Globulin [Mass ratio] 1.2 {ratio} Normal 0.9-2.4 [facility] Comment on above: Performed By: #### L 100.0500, L501.6710, L501.9520, L500.4050, L101.9900 #### [facility] [address] [place], [address] ALK P 83 U/L Normal 45-117 [facility] Comment on above: Performed By: #### L 100.0500, L501.6710, L501.9520, L500.4050, L101.9900 #### [facility] [address] [place], [address] ALT [Catalytic activity/Vol] 106 U/L High 16-61 [facility] Comment on above: Performed By: #### L 100.0500, L501.6710, L501.9520, L500.4050, L101.9900 #### [facility] [address] [place], [address] AST [Catalytic activity/Vol] 45 U/L High 15-37 [facility] Comment on above: Performed By: #### L 100.0500, L501.6710, L501.9520, L500.4050, L101.9900 #### [facility] [address] [place], [address] Bilirubin [Mass/Vol] 0.70 mg/dL Normal 0.20-1.00 [facility] Comment on above: Result Comment: For patients on eltrombopag therapy, use of Dimension [place] TBIL is not recommended. Performed By: #### L 100.0500, L501.6710, L501.9520, L500.4050, L101.9900 #### [facility] [address] [place], [address] BUN/CRE 12.9 RATIO Normal 10-20 [facility] Comment on above: Performed By: #### L 100.0500, L501.6710, L501.9520, L500.4050, L101.9900 #### [facility] [address] [place], [address] CA,Total 9.8 mg/dL Normal 8.5-10.1 [facility] Comment on above: Performed By: #### L 100.0500, L501.6710, L501.9520, L500.4050, L101.9900 #### [facility] [address] [place], [address] Chloride [Moles/Vol] 105 mmol/L Normal 98-107 [facility] Comment on above: Performed By: #### L 100.0500, L501.6710, L501.9520, L500.4050, L101.9900 #### [facility] [address] [place], [address] CO2 [Moles/Vol] 27.0 mmol/L Normal 21.0-32.0 [facility] Comment on above: Performed By: #### L 100.0500, L501.6710, L501.9520, L500.4050, L101.9900 #### [facility] [address] [place], [address] Creatinine [Mass/Vol] 1.01 mg/dL Normal 0.70-1.30 [facility] Comment on above: Result Comment: The validity of the calculated GFR GFRAA in patients over 70 years has not been determined. Clinical correlation is essential. Performed By: #### L 100.0500, L501.6710, L501.9520, L500.4050, L101.9900 #### [facility] [address] [place], [address] EST GFR - AA 109 mL/min Normal >60 [facility] Comment on above: Result Comment: Afri can Cymro GFR Calc Performed By: #### L 100.0500, L501.6710, L501.9520, L500.4050, L101.9900 #### [facility] [address] [place], [address] GAP 4 Low 5-15 [facility] Comment on above: Performed By: #### L 100.0500, L501.6710, L501.9520, L500.4050, L101.9900 #### [facility] [address] [place], [address] GFR/1.73 sq M.predicted among non-blacks MDRD (S/P/Bld) [Vol rate/Area] 90 mL/min/{1.73_m2} Normal >60 [facility] Comment on above: Result Comment: Non- GFR Calc Performed By: #### L 100.0500, L501.6710, L501.9520, L500.4050, L101.9900 #### [facility] [address] [place], [address] Globulin (S) [Mass/Vol] 3.2 g/dL Normal 2.2-4.2 [facility] Comment on above: Performed By: #### L 100.0500, L501.6710, L501.9520, L500.4050, L101.9900 #### [facility] [address] [place], [address] Glucose [Mass/Vol] 109 mg/dL High 74-106 [facility] Comment on above: Result Comment: Fast ing Glucose result from 100 to 125 mg/dL suggests IMPAIRED HOMEOSTASIS per A.D.A. criteria. Performed By: #### L 100.0500, L501.6710, L501.9520, L500.4050, L101.9900 #### [facility] [address] [place], [address] Potassium [Moles/Vol] 3.9 mmol/L Normal 3.5-5.1 [facility] Comment on above: Performed By: #### L 100.0500, L501.6710, L501.9520, L500.4050, L101.9900 #### [facility] [address] [place], [address] Sodium [Moles/Vol] 136 mmol/L Normal 136-145 [facility] Comment on above: Performed By: #### L 100.0500, L501.6710, L501.9520, L500.4050, L101.9900 #### [facility] [address] [place], [address] T PROT 7.2 g/dL Normal 6.4-8.2 [facility] Comment on above: Performed By: #### L 100.0500, L501.6710, L501.9520, L500.4050, L101.9900 #### [facility] [address] [place], [address] Urea nitrogen [Mass/Vol] 13 mg/dL Normal 7-18 [facility] Comment on above: Performed By: #### L 100.0500, L501.6710, L501.9520, L500.4050, L101.9900 #### [facility] [address] [place], [address] Erythrocyte Sed Rateon 05-21 SED RATE 3 mm/hr Normal 0-20 [facility] Comment on above: Performed By: #### L 100.0500, L501.6710, L501.9520, L500.4050, L101.9900 #### [facility] [address] [place], [address] Thyroid Stim Hormone (TSH)on 05-21-2024 TSH 1.000 uIU/mL Normal 0.358-3.74 0 [facility] Comment on above: Performed By: #### L 100.0500, L501.6710, L501.9520, L500.4050, L101.9900 #### [facility] [address] [place], [address] CBC panel Auto (Bld)on 03-14 Erythrocyte distribution width (RBC) [Ratio] 13.2 % Normal 11.5-15.0 [facility] Comment on above: Order Comment: Speci men Type: BLOOD SPECIMEN Ordering Facility: [facility] Address: [address] [place], [place] [address] Performed By: #### 5 8410-2 #### [facility] CLIA [id number] [address] [place] [address] [place] Hematocrit (Bld) [Volume fraction] 44.9 % Normal 39.0-51.0 [facility] Comment on above: Order Comment: Speci men Type: BLOOD SPECIMEN Ordering Facility: [facility] Address: [address] [place] [address] Performed By: #### 5 8410-2 #### [facility] CLIA [id number] [address] [place] [address] [place] Hemoglobin (Bld) [Mass/Vol] 15.6 g/dL Normal 13.0-17.0 [facility] Comment on above: Order Comment: Speci men Type: BLOOD SPECIMEN Ordering Facility: [facility] Address: [address] [place] [address] Performed By: #### 5 8410-2 #### [facility] CLIA [id number] [address] [place] [address] [place] MCH (RBC) [Entitic mass] 27.9 pg Normal 26.0-34.0 [facility] Comment on above: Order Comment: Speci men Type: BLOOD SPECIMEN Ordering Facility: [facility] Address: [address] [place] [address] Performed By: #### 5 8410-2 #### [facility] CLIA [id number] [address] [place] [address] [place] MCHC (RBC) [Mass/Vol] 34.7 g/dL Normal 30.5-36.0 [facility] Comment on above: Order Comment: Speci men Type: BLOOD SPECIMEN Ordering Facility: [facility] Address: [address] [place] [address] Performed By: #### 5 8410-2 #### [facility] CLIA [id number] [address] [place] [address] [place] MCV (RBC) [Entitic vol] 80.2 fL Normal 80.0-100.0 [facility] Comment on above: Order Comment: Speci men Type: BLOOD SPECIMEN Ordering Facility: [facility] Address: [address] [place] [address] Performed By: #### 5 8410-2 #### [facility] CLIA [id number] [address] [place] [address] [place] Nucleated RBC (Bld) [#/Vol] 10*3/uL Normal <0.01 [facility] Comment on above: Order Comment: Speci men Type: BLOOD SPECIMEN Ordering Facility: [facility] Address: [address] [place] [address] Performed By: #### 5 8410-2 #### [facility] CLIA [id number] [address] [place] [address] [place] Platelet mean volume (Bld) [Entitic vol] 9.9 fL Normal 9.0-12.7 [facility] Comment on above: Order Comment: Speci men Type: BLOOD SPECIMEN Ordering Facility: [facility] Address: [address] [place] [address] Performed By: #### 5 8410-2 #### [facility] CLIA [id number] [address] [place] [address] [place] Platelets (Bld) [#/Vol] 199 10*3/uL Normal 150-400 [facility] Comment on above: Order Comment: Speci men Type: BLOOD SPECIMEN Ordering Facility: [facility] Address: [address] [place], [place] [address] Performed By: #### 5 8410-2 #### [facility] CLIA [id number] [address] [place], [place] [address] [facility] RBC (Bld) [#/Vol] 5.60 10*6/uL Normal 4.20-6.00 [facility] Comment on above: Order Comment: Speci men Type: BLOOD SPECIMEN Ordering Facility: [facility] Address: [address] [place] [address] Performed By: #### 5 8410-2 #### [facility] CLIA [id number] [address] [place] [address] WBC (Bld) [#/Vol] 5.84 10*3/uL Normal 3.70-11.00 [facility] Comment on above: Order Comment: Speci men Type: BLOOD SPECIMEN Ordering Facility: [facility] Address: [address] [place] [address] Performed By: #### 5 8410-2 #### [facility] CLIA [id number] [address] [place] [address] [facility] Comprehensive metabolic 2000 panelon 03-14-2024 Albumin [Mass/Vol] 4.0 g/dL Normal 3.2-5.0 [facility] Comment on above: Order Comment: Speci men Type: BLOOD SPECIMEN Ordering Facility: [facility] Address: [address] [place], [place] [address] Performed By: #### 1 9123-9, 55014-6 #### [facility] CLIA [id number] [address] [place] [address] OF [place] ALP [Catalytic activity/Vol] 79 U/L Normal 45-117 [facility] Comment on above: Order Comment: Speci men Type: BLOOD SPECIMEN Ordering Facility: [facility] Address: [address] [place] [address] Performed By: #### 1 9123-9, 45201-7 #### [facility] CLIA [id number] [address] [place], [place] [address] [place] ALT [Catalytic activity/Vol] 64 U/L High 13-61 [facility] Comment on above: Order Comment: Speci waldo Type: BLOOD SPECIMEN Ordering Facility: [facility] Address: [address] [place] [address] Result Comment: Resu lts may be falsely depressed after the administration of Sulfasalazine and/or Sulfapyridine. Performed By: #### 1 9123-9, 97769-9 #### [facility] CLIA [id number] [address] [place] [address] [place] Anion gap [Moles/Vol] 5 mmol/L Normal 5-16 [facility] Comment on above: Order Comment: Dale haas Type: BLOOD SPECIMEN [facility] [facility] Address: [address] [place] [address] Performed By: #### 1 9123-9, #### [facility] CLIA [id number] [address] [place] [address] [place] AST [Catalytic activity/Vol] 33 U/L Normal 8-34 [facility] Comment on above: Order Comment: Speci waldo Type: BLOOD SPECIMEN Ordering Facility: [facility] Address: [address] [place] [address] Result Comment: Resu lts may be falsely depressed after the administration of Sulfasalazine and/or Sulfapyridine. Performed By: #### 1 9123-9, #### [facility] CLIA [id number] [address] [place] [address] [place] Bilirubin [Mass/Vol] 0.5 mg/dL Normal 0.2-1.0 [facility] Comment on above: Order Comment: Speci waldo Type: BLOOD SPECIMEN Ordering Facility: [facility] Address: [address] [place] [address] Performed By: #### 1 9123-9, 43277-8 #### [facility] CLIA [id number] [address] [place] [address] [place] Calcium [Mass/Vol] 9.8 mg/dL Normal 8.5-10.5 [facility] Comment on above: Order Comment: Speci men Type: BLOOD SPECIMEN Ordering Facility: [facility] Address: [address] [place] [address] Performed By: #### 1 9123-9, 42791-5 #### [facility] CLIA [id number] [address] [place] [address] [place] Chloride [Moles/Vol] 110 mmol/L High 98-107 [facility] Comment on above: Order Comment: Speci men Type: BLOOD SPECIMEN Ordering Facility: [facility] Address: [address] [place] [address] Performed By: #### 1 9123-9, 96493-2 #### [facility] CLIA [id number] [address] [place] [address] [place] CO2 [Moles/Vol] 27 mmol/L Normal 21-32 [facility] Comment on above: Order Comment: Speci men Type: BLOOD SPECIMEN Ordering Facility: [facility] Address: [address] [place] [address] Performed By: #### 1 9123-9, #### [facility] CLIA [id number] [address] [place] [address] [place] Creatinine [Mass/Vol] 0.83 mg/dL Normal 0.50-1.40 [facility] Comment on above: Order Comment: Speci men Type: BLOOD SPECIMEN Ordering Facility: [facility] Address: [address] [place] [address] Result Comment: Radha ents receiving either N-Acetylcysteine (NAC) or Metamizole prior to venipuncture, may have falsely depressed results. Performed By: #### 1 9123-9, 70678-6 #### [facility] CLIA [id number] [address] [place] [address] [place] Creatinine and Glomerular filtration rate.predicted panel (S/P/Bld) 119 mL/min/1.73m??? Normal >=60 [facility] Comment on above: Order Comment: Dale haas Type: BLOOD SPECIMEN Ordering Facility: [facility] Address: [address] [place] [address] Result Comment: May mated Glomerular Filtration Rate (eGFR) is calculated using the 2020 CKD-EPI creatinine equation. This equation utilizes serum creatinine, sex, and age as parameters. The creatinine assay has traceable calibration to isotope dilution-mass spectrometry. Refer to KDIGO guidelines for clinical interpretation. In patients with unstable renal function, e.g. those with acute kidney injury, the eGFR may not accurately reflect actual GFR. Performed By: #### 1 9123-9, 21745-3 #### [facility] CLIA [id number] [address] [place] [address] [place] Glucose [Mass/Vol] 113 mg/dL High 70-100 [facility] Comment on above: Order Comment: Dale haas Type: BLOOD SPECIMEN Ordering Facility: [facility] Address: [address] [place] [address] Result Comment: The [place] Diabetes Association (ADA) provides guidance for cutoff values for fasting glucose and random glucose. The ADA defines fasting as no caloric intake for at least 8 hours. Fasting plasma glucose results between 100 to 125 mg/dL indicate increased risk for diabetes (prediabetes). Fasting plasma glucose results greater than or equal to 126 mg/dL meet the criteria for diagnosis of diabetes. In the absence of unequivocal hyperglycemia, results should be confirmed by repeat testing. In a patient with classic symptoms of hyperglycemia or hyperglycemic crisis, random plasma glucose results greater than or equal to 200 mg/dL meet the criteria for diagnosis of diabetes. Reference: Standards of Medical Care in Diabetes 2016, [place] Diabetes [employer]. Diabetes Care. 2016.39(Suppl 1). Results may be falsely elevated after the administration of Sulfapyridine. Results may be falsely depressed after the administration of Sulfasalazine. Performed By: #### 1 9123-9, 05440-5 #### [facility] CLIA [id number] [address] [place], [place] [address] [place] Potassium [Moles/Vol] 3.9 mmol/L Normal 3.5-5.1 [facility] Comment on above: Order Comment: Speci men Type: BLOOD SPECIMEN Ordering Facility: [facility] Address: [address] [place] [address] Performed By: #### 1 9123-9, 65290-7 #### [facility] CLIA [id number] [address] [place], [place] [address] [place] Protein [Mass/Vol] 6.7 g/dL Normal 6.0-8.5 [facility] Comment on above: Order Comment: Speci men Type: BLOOD SPECIMEN Ordering Facility: [facility] Address: [address] [place] [address] Performed By: #### 1 9123-9, 58917-7 #### [facility] CLIA [id number] [address] [place], [place] [address] [place] Sodium [Moles/Vol] 142 mmol/L Normal 136-145 [facility] Comment on above: Order Comment: Speci men Type: BLOOD SPECIMEN Ordering Facility: [facility] Address: [facility] [place] [address] Performed By: #### 1 9123-9, 05790-6 #### [facility] CLIA [id number] [address] [place] [address] [place] Urea nitrogen [Mass/Vol] 14 mg/dL Normal 7- [facility] Comment on above: Order Comment: Speci men Type: BLOOD SPECIMEN Ordering Facility: [facility] Address: [facility] [place] [address] Performed By: #### 1 9123-9, 16895-5 #### [facility] CLIA [id number] [address] [place], [place] [address] [place] ECG COMPLETEon 03-14-2024 ECG COMPLETE Ventricular Rate : 7 4 BPM Atrial Rate : 74 BPM P-R Interval : 166 ms QRS Duration : 96 ms Q-T Interval : 404 ms QTC Calculation(Bazett) : 448 ms Calculated P [place] : 75 degrees Calculated R [place] : 49 degrees Calculated T [place] : 67 degrees Normal sinus rhythm Normal ECG No previous ECGs available Confirmed by SARATH CORRALES MD ([id number]) on 03/15/2024 1:04:39 PM NAME : AMADO MARINELLI PID : [id number] : 1990 Gender : Male Race : ORD : [id number] Procedure Date : Mar 14 2024 10:49:37 Edit Date : Mar 15 2024 13:04:43 Diagnosis: Normal sinus rhythm Normal ECG No previous ECGs available Confirmed by SARATH CORRALES MD ([id number]) on 03/15/2024 1:04:39 PM Test Reason : HCS Location : 0 : ED [id number] Overread By : SARATH CORRALES MD Edited By : SARATH CORRALES MD Referred By : , Acquired by : ED, [facility] ED PROV NOTEon 03-14-2024 ED PROV NOTE HNO ID: [id number] Author: ELISABET RETANA PA-C Service: ? Author Type: Physician Cut Out Marker Type: ED Provider Notes Filed: 03/14/2024 13:13 Note Text: ED Provider Note Patient Name: Amado Marinelli : 1990 SERVICE DATE: 03/14/24 History Patient presents with: Chest Pain: Was seen at [facility] Sunday and told to come here for cardiac work up HPI Amado Marinelli is a 33 year old male who presents to the ED due to intermittent chest pain x 1 week. Patient was seen at [facility] 3 days ago when he was instructed to come the emergency department for cardiac workup. He was unable to secure a ride at that time and is presenting today for further evaluation. He continued to have chest pain intermittently, states it is midsternally, only last a few seconds to a few minutes and then subsides spontaneously. He does not get diaphoretic or nauseous with these events. Denies any associated shortness of breath. He has not noticed any patterns in terms of when his chest pain begins. He does have a history of anxiety and GERD however states he is onmedication for both of these and reports good compliance with these. Denies any significant cardiac history. Denies any history of blood clots or recent travel. No prolonged immobilization. He does have a primary care however has not followed up in about 2 years. Denies any fever, chills. No recent illness. No abdominal pain, nausea, vomiting. Nursing/triage notes, assessments, and vitals were reviewed. See MDM/ED course for further HPI. ROS Review of Systems Negative unless otherwise stated in HPI or MDM PAST MEDICAL HISTORY Diagnosis Date ADHD (attention deficit hyperactivity disorder) Bipolar disorder (HCC) Depression [facility], history of suicide attempt Genital herpes 04/2013 Polysubstance abuse ([facility]) meth, heroin. Oversoe 07/2019 [facility] Tobacco use disorder PAST SURGICAL HISTORY Procedure Laterality Date HAND [...] Types: Chew Tobacco comments: started smoking 17yo Vaping Use Vaping Use: Never used Substance and Sexual Activity Alcohol use: No Drug use: No Sexual activity: Yes Partners: Female ALLERGIES Allergen Reactions Ibuprofen GI Upset Naproxen GI Upset Penicillins Other: See Comments Throat started to close up. Physical Exam Physical Exam Vitals [03/14/24 1048] BP Pulse Temp Temp src Resp SpO2 Weight Height 128/72 70 36.8 ?C (98.3 ?F) Oral 16 97 % 90.7 kg (200 lb) 1.829 m (6') General: alert, generally well-appearing HEENT: atraumatic, EOMI, no scleral injection or tearing, mucous membranes moist Neck: supple, no stiffness or restricted ROM, trachea midline Lungs: CTAB, good respiratory effort, no crackles, rhonchi, or wheezes Cardiac: RRR, normal S1/S2 Extremities: atraumatic, without cyanosis or edema Skin: warm, dry, no rashes or lesions Neuro: alert, oriented, no lateralized or focal deficits, moving all 4 extremities, no gross weakness, CN grossly intact Psych: normal mood and affect Diagnostic Testing ED Labs Ordered and Reviewed COMPREHENSIVE METABOLIC PANEL - Abnormal; Notable for the following components: Result Value Ref Range ALT 64 (*) 13 - 61 U/L Glucose 113 (*) 70 - 100 mg/dL Chloride 110 (*) 98 - 107 mmol/L All other components within normal limits COMPLETE BLOOD COUNT - Normal MAGNESIUM - Normal HIGH SENSITIVITY TROPONIN I - Normal XR CHEST 2V FRONTAL/LAT Final Result IMPRESSION: No acute radiographic abnormality. Book Canvasser: PSCB Transcribe Date/Time: Mar 14 2024 1:00P Dictated by : RUPERTO QUESADA MD This examination was interpreted and the report reviewed and electronically signed by: RUPERTO QUESADA MD on Mar 14 2024 1:01PM EST Procedures Procedures Medications received in ED Medications - No data to display Discharge Medications New Prescriptions No medications on file ED Course / Clinical Impression Clinical Impressions as of 03/14/24 1313 Acute nonspecific chest pain with low risk of coronary artery disease MDM / Disposition / Plan HEART Score - 03/14/24 1310 History Slightly suspicious ECG Normal Age <45 Risk Factors 1-2 risk factors Troponin Less than or equal to normal limit HEART Score 1 Patient is a 33 year old male presenting to the emergency department due to intermittent chest pain x 1 week. Patient was seen at [facility] 3 days ago when he was instructed to come the emergency department for cardiac (more content not included)... Normal [facility] HIGH SENSITIVITY TROPONIN Io n 03-14-2024 Tropinin I.cardiac panel High sensitivity method <2.5 Normal 0.0-54.0 [facility] Comment on above: Order Comment: Dale haas Type: BLOOD SPECIMEN Ordering Facility: [facility] Address: [address] [place] [address] Performed By: #### H STROP #### [facility] CLIA [id number] [address] [place] [address] [place] Magnesium SerPl-mCncon 03-14 Magnesium [Mass/Vol] 1.9 mg/dL Normal 1.6-2.6 [facility] Comment on above: Order Comment: Dale haas Type: BLOOD SPECIMEN Ordering Facility: [facility] Address: [address] [place] [address] Performed By: #### 1 9123-9, 22704-0 #### [facility] CLIA [id number] [address] [place] [address] [place] XR CHEST 2V FRONTAL/LATon XR CHEST 2V FRONTAL/LAT * * *Final Repor t* * * DATE OF EXAM: Mar 14 2024 12:45PM [id number] [id number] - XR CHEST 2V FRONTAL/LAT / PROCEDURE REASON: Chest pain, nonspecific * * * * Physician Interpretation * * * * EXAMINATION: CHEST RADIOGRAPH (2 VIEW FRONTAL and LATERAL) CLINICAL HISTORY: Chest pain, nonspecific, Chest Pain MQ: XC2_6 EXAM DATE/TIME: 03/14/2024 12:45 PM COMPARISON: No relevant prior studies available. RESULT: Lines, tubes, and devices: None. Lungs and pleura: No consolidation. No lung mass. No pleural effusion. No pneumothorax. Cardiomediastinal silhouette: Normal cardiomediastinal silhouette. Bones and soft tissues: Unremarkable. IMPRESSION: No acute radiographic abnormality. Book Canvasser: PSCB Transcribe Date/Time: Mar 14 2024 1:00P Dictated by : RUPERTO QUESADA MD This examination was interpreted and the report reviewed and electronically signed by: RUPERTO QUESADA MD on Mar 14 2024 1:01PM EST [id number] [facility] CNOVon 03-11-2024 CNOV Office Visit (MPLA ) ----- AMADO MARINELLI ([id number]) 1990 Date Time Provider Department 03/11/24 4:05 PM [facility] During your visit today, we recorded the following information about you: Temperature Pulse Respiration Blood pressure 98.2 degrees 70/minute 18/minute 125/83 Weight 90.7 kg Celi Keane PA-C 03/11/2024 4:27 PM Signed Although your EKG looks okay here in the clinic given you are having off-and-on chest tightness and limitations of urgent care I do feel like you should be seen in the emergency department where if deemed necessary more advanced blood work and imaging can be done including likely heart enzymes. Celi Keane PA-C 03/11/2024 4:35 PM Signed Amado Marinelli is a 33 year old male who presents with Chest Pain (03/10/24 ) This is a 33-year-old male with a past medical history of bipolar disorder and polysubstance abuse including heroin and meth here with intermittent chest tightness that started last night. He describes the pain as a squeezing sensation in the middle of his chest that comes and lasts for a few seconds to a few minutes before resolving. The last episode was on route to the urgent care. It is not pleuritic, exertional or radiating. No alleviating symptoms. No fevers, chills, dizziness, shortness of breath, difficulty breathing, cough, hemoptysis, nausea or vomiting, abdominal pain, leg swelling or rash. Denies any previous history of known CAD or known family history of premature CAD. No recent travel or long-term immobilization. Denies any recent drug use. The history is provided by the patient. Chest Pain Pertinent negatives include no abdominal pain, no cough, no dizziness, no fever, no hemoptysis, no nausea, no shortness of breath and no vomiting. PAST MEDICAL HISTORY Diagnosis Date ADHD (attention deficit hyperactivity disorder) Bipolar disorder ([facility]) Depression [facility], history of suicide attempt Genital herpes 04/2013 Polysubstance abuse ([facility]) meth, heroin. Oversoe 07/2019 [facility] Tobacco use disorder Current Outpatient Medications Medication Sig Dispense Refill ALBUTEROL INHALATION Inhale as instructed. predniSONE (DELTASONE) 20 mg tablet Take 40 mg by mouth. keTORolac (TORADOL) 10 mg tablet Take 1 tablet by mouth every 6 hours as needed. No current facility-administered medications for this visit. Social History Tobacco Use Smoking status: Every Day Packs/day: 0.50 Years: 5.00 Additional pack years: 0.00 Total pack years: 2.50 Types: Cigarettes Smokeless tobacco: Current Types: Chew Tobacco comments: started smoking 17yo Vaping Use Vaping Use: Never used Substance Use Topics Alcohol use: No Drug use: No Review of Systems Constitutional: Negative for chills and fever. Respiratory: Negative for cough, hemoptysis and shortness of breath. Cardiovascular: Positive for chest pain. Negative for leg swelling. Gastrointestinal: Negative for abdominal pain, blood in stool, melena, nausea and vomiting. Neurological: Negative for dizziness. BP 125/83 Pulse 70 Temp 98.2 Resp 18 Wt 200 lb (90.7kg) SpO2 96% Physical Exam Vitals and nursing note reviewed. Constitutional: General: He is not in acute distress. Appearance: He is not ill-appearing or toxic-appearing. HENT: Head: Normocephalic and atraumatic. Mouth/Throat: Mouth: Mucous membranes are moist. Cardiovascular: Rate and Rhythm: Normal rate and regular rhythm. Pulmonary: Effort: Pulmonary effort is normal. No respiratory distress. Breath sounds: No stridor. No wheezing, rhonchi or rales. Musculoskeletal: Cervical back: Neck supple. Right lower leg: No edema. Left lower leg: No edema. Comments: Moves all extremities x 4 spontaneously and without difficulty. Skin: General: Skin is warm and dry. Neurological: Mental Status: He is alert. Comments: Awake and alert. Motor grossly intact. Steady gait. EKG was obtained and it reveals normal sinus rhythm with a ventricular rate of 64 bpm. Normal [place] interval. No ST elevation or T wave abnormalities. No previous tracings for comparison. This is a 33-year-old male presents with intermittent chest tightness since last night. He is hemodynamically stable. Afebrile. No acute respiratory airway compromise. No hypoxia. EKG obtained revealing normal sinus rhythm with a ventricular rate of 64 bpm. No noted abnormalities. No clinical risk factors for pulmonary embolism. Although he is low risk for acute coronary syndrome based off his symptoms and my limitations in obtaining more advanced blood work I feel he does require emergency department evaluation where at the very least a set of cardiac enzymes can be done. He is amenable to this however declines EMS transportation. He would like to go by private vehicle which I felt was reasonable. He is unsure as to what (more content not included)... Normal [facility] ECG COMPLETEon 03-11-2024 ECG COMPLETE Ventricular Rate : 6 4 BPM Atrial Rate : 64 BPM P-R Interval : 168 ms QRS Duration : 100 ms Q-T Interval : 432 ms QTC Calculation(Bazett) : 445 ms Calculated P [place] : 61 degrees Calculated R [place] : 11 degrees Calculated T [place] : 57 degrees Normal sinus rhythm Normal ECG No previous ECGs available Confirmed by SARATH CORRALES MD ([id number]) on 03/12/2024 1:23:27 AM NAME : AMADO MARINELLI PID : [id number] : 1990 Gender : Male Race : ORD : [id number] Procedure Date : Mar 11 2024 16:12:08 Edit Date : Mar 12 2024 01:23:29 Diagnosis: Normal sinus rhythm Normal ECG No previous ECGs available Confirmed by SARATH CORRALES MD ([id number]) on 03/12/2024 1:23:27 AM Test Reason : R07.89 Chest tightness Location : 78 : URGPLA Overread By : SARATH CORRALES MD Edited By : SARATH CORRALES MD Referred By : CELI KEANE Acquired by : MARILYNN [facility] Absolute lymphocyte countOrd ered By: Cheo Short on 10-24-2023 Lymphocytes Auto (Unsp spec) [#/Vol] 2.12 10*3/uL 0.83-4.51 [facility] Automated lymphocyte count a s percentage of total leukocytesOrdered By: Cheo Short on 10-24-2023 Lymphocytes/100 WBC Auto (Unsp spec) 24.8 % 19-41 [facility] Basophil percentageOrdered B y: Remus Deja on 10-24-2023 Basophils/100 WBC (Bld) 1.1 % 0-1 [facility] Chloride [Moles/Vol] 102 mmol/L 98-107 [facility] Eosinophils/100 WBC (Bld) 2.0 % 0-5 [facility] Glucose [Mass/Vol] 132 mg/dL 74-106 [facility] Comment on above: Fasting Glucose resu lt greater than or equal to 126 mg/dL suggests DIABETES MELLITUS per A.D.A. criteria. Hemoglobin (Bld) [Mass/Vol] 16.5 g/dL 13.0-16.5 [facility] Monocytes/100 WBC (Bld) 10.3 % 0-10 [facility] Neutrophils (Bld) [#/Vol] 5.2 10*3/uL 2.0-7.7 [facility] Neutrophils/100 WBC (Bld) 61.1 % 47-70 [facility] Potassium [Moles/Vol] 4.1 mmol/L 3.5-5.1 [facility] Sodium [Moles/Vol] 137 mmol/L 136-145 [facility] WBC (Bld) [#/Vol] 8.6 10*3/uL 4.4-11.0 [facility] Determination of erythrocyte mean corpuscular volume (MCV)Ordered By: Cheo Short on 10-24-2023 MCV (RBC) [Entitic vol] 84.5 fL 80-94 [facility] Erythrocyte distribution wid th ratioOrdered By: Cheo Short on 10-24-2023 Erythrocyte distribution width (RBC) [Ratio] 12.9 % 11.6-14.6 [facility] Erythrocyte distribution wid th standard deviationOrdered By: Cheo Short on 10-24-2023 Erythrocyte distribution width (RBC) [Entitic vol] 39.7 fL 35.1-43.9 [facility] Hematocrit Auto (Bld) [Volum e fraction]Ordered By: Cheo Short on 10-24-2023 Hematocrit (Bld) [Volume fraction] 50.0 % 40-54 [facility] Immature granulocytes/100 WB C Auto (Bld)Ordered By: Cheo Short on 10-24-2023 Immature granulocytes/100 WBC (Bld) 0.700 % 0.0-0.9 [facility] Comment on above: IG% - Immature Granu locytes (promyelocytes, myelocytes and metamyelocytes) > 1% indicates that a LEFT SHIFT is Present. Laboratory - Chemistry and C hemistry - challengeOrdered By: Cheo Short on 10-24-2023 CO2 [Moles/Vol] 31.0 mmol/L 21.0-32.0 [facility] Urea nitrogen/Creatinine [Mass ratio] 17.2 mg/mg 10-20 [facility] Laboratory - Drug toxicology Ordered By: Cheo Short on 10-24-2023 Amphetamines Ql (U) Positive <1000 ng/mL [facility] Benzodiazepines Ql (U) Negative < 200 ng/mL [facility] Cannabinoids Screen Ql (U) Positive < 50 ng/mL [facility] Cocaine Ql (U) Negative < 300 ng/mL [facility] Opiates Ql (U) Negative < 300 ng/mL [facility] Laboratory - Hematology and Cell countsOrdered By: Cheo Short on 10-24-2023 MCH (RBC) [Entitic mass] 27.9 pg 27.0-32.0 [facility] MCHC (RBC) [Mass/Vol] 33.0 g/dL 32-36 [facility] Nucleated RBC/100 WBC (Bld) [Ratio] 0 % 0-5 [facility] Platelet mean volume (Bld) [Entitic vol] 9.9 fL 6.2-12.0 [facility] Platelets (Bld) [#/Vol] 254 10*3/uL 150-450 [facility] No Panel InformationOrdered By: Cheo Short on 10-24-2023 MDMA (Ecstasy) Screen Positive < 500 ng/mL [facility] Urine Barbiturates Screen Negative < 200 ng/mL [facility] Urine Drug Screen Comment [facility] Comment on above: CONFIRMATORY TESTING FOR ALL POSITIVE URINE DRUG SCREENRESULTS WILL ONLY BE SENT OUT UPON PHYSICIAN ORDER. VISTA Urine Drug Screen methods provide only preliminaryanalytical test results. A more specific alternate chemicalmethod must be used in order to obtain a confirmedanalytical result. Gas chromatography/mass spectrometery(GC/MS) is the preferred confirmatory method. Clinicalconsideration and professional judgement should be appliedto any drug of abuse test result, particularly whenpreliminary positive results are used. URINE TCA TESTING MUST BE ORDERED SEPARATELY. USE TESTMNEMONIC: [facility] Urine Methadone Screen Negative < 300 ng/mL [facility] Estimated Creatinine Clearance Calc 100.34 ml/min [facility] Estimated GFR (MDRD) Amer 93 mL/min >60 [facility] Comment on above: GFR Calc Estimated GFR (MDRD) Non-Af Amer 77 mL/min >60 [facility] Comment on above: Non- GFR Calc Ethyl Alcohol Level < 3.0 mg/dL [facility] Comment on above: The serum:whole bloo d ethanol ratio is approximately 1.14and varies slightly with hematocrit. Medical Alcohol reference interval and critical value innon-tolerant individuals; 50 - 100 Impairment 100 Intoxication 100 - 250 Severe Poisoning 250 - 400 Deep/possible fatal coma RBC Auto (Bld) [#/Vol]Ordere d By: Cheo Short on 10-24-2023 RBC (Bld) [#/Vol] 5.92 10*6/uL 4.6-6.2 [facility] Serum or plasma calcium jeff urement (mass/volume)Ordered By: Cheo Short on 10-24-2023 Calcium [Mass/Vol] 9.6 mg/dL 8.5-10.1 [facility] Serum or plasma creatinine m easurement (mass/volume)Ordered By: Cheo Short on 10-24-2023 Creatinine [Mass/Vol] 1.16 mg/dL 0.70-1.30 [facility] Comment on above: The validity of the calculated GFR & GFRAA in patients over 70 years has not been determined. Clinical correlation is essential. Serum or plasma urea nitroge n measurement (mass/volume)Ordered By: [facility] Short on 10-24-2023 Urea nitrogen [Mass/Vol] 20 mg/dL 7-18 [facility] Thin prep Papanicolaou smear with manual screeningOrdered By: Cheo Short on 10-24-2023 Thin prep Papanicolaou smear with manual screening 4 5-15 [facility] Urine phencyclidine (PCP) de tectionOrdered By: Cheo Short on 10-24-2023 Phencyclidine Ql (U) Negative < 25 ng/mL [facility] XR HAND MINIMUM 3 VIEWS LEFT on 10-09-2023 XR HAND MINIMUM 3 VIEWS LEFT ORIGINAL EXAMINATION: THREE XRAY VIEWS OF THE [...] 10/09/2023 11:35:44 AM Ordering Provider: RUBEN JOVEL [facility] ([place]) XR HAND MINIMUM 3 VIEWS LEFT ORIGINAL EXAMINATION: THREE XRAY VIEWS OF THE [...] Sign Date: 10/09/2023 11:30:43 AM Ordering Provider: RUBEN JOVEL [facility] ([place]) Absolute lymphocyte countOrd ered By: Juancho Holley on 05-26-2023 Lymphocytes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 diarrhea. He did not measure his temperature at home. He is up-to-date with his COVID-vaccine and flu vaccine, notes he did get COVID a year ago as well. He does smoke, but no history of diabetes, hypertension, hyperlipidemia. Does have family history of heart disease but no family history of sudden cardiac . Does not have a history of DVT or PE, no unilateral leg edema, no calf tenderness no recent surgery or immobilization malignancy. Does have history of anxiety, asthma has not had increased wheezing. Nursing Notes were reviewed. REVIEW OF SYSTEMS (2+ for level 4; 10+ for level 5) Review of Systems 10 pt ROS negative unless otherwise specified in the HPI above PAST MEDICAL HISTORY Past Medical History: Diagnosis Date Anxiety Asthma COPD (chronic obstructive pulmonary disease) ([facility]) Depression SURGICAL HISTORY No past surgical history on file. CURRENT MEDICATIONS Previous Medications ALBUTEROL IN Inhale into the lungs KETOROLAC (TORADOL) 10 MG TABLET Take 1 tablet by mouth every 6 hours as needed for Pain ALLERGIES Penicillins FAMILY HISTORY No family history on file. SOCIAL HISTORY Social History Socioeconomic History Marital status: Single Tobacco Use Smoking status: Every Day Packs/day: 1.50 Types: Cigarettes Smokeless tobacco: Never Substance and Sexual Activity Alcohol use: Yes Comment: occ Drug use: No SCREENINGS PHYSICAL EXAM (up to 7 for level 4, 8 or more for level 5) ED Triage Vitals BP Temp Temp src Pulse Resp SpO2 Height Weight -- -- -- -- -- -- -- -- Physical Exam Constitutional: General: He is not in acute distress. Appearance: He is not toxic-appearing. HENT: Head: Normocephalic and atraumatic. Nose: Congestion present. Mouth/Throat: Mouth: Mucous membranes are moist. Pharynx: Oropharynx is clear. Eyes: General: No scleral icterus. Extraocular Movements: Extraocular movements intact. Conjunctiva/sclera: Conjunctivae normal. Cardiovascular: Rate and Rhythm: Normal rate and regular rhythm. Pulses: Normal pulses. Pulmonary: Effort: Pulmonary effort is normal. No respiratory distress. Breath sounds: No wheezing, rhonchi or rales. Comments: Intermittent cough Abdominal: General: Bowel sounds are normal. Palpations: Abdomen is soft. Tenderness: There is no abdominal tenderness. There is no guarding or rebound. Musculoskeletal: General: No tenderness, deformity or signs of injury. Normal range of motion. Cervical back: Normal range of motion and neck supple. Skin: General: Skin is warm. Coloration: Skin is not jaundiced. Findings: No erythema or rash. Neurological: General: No focal deficit present. Mental Status: He is alert and oriented to person, place, and time. Mental status is at baseline. Psychiatric: Mood and Affect: Mood normal. Behavior: Behavior normal. DIAGNOSTIC RESULTS EKG (Per Emergency Physician): Please see ED attending documentation for interpretation of EKG RADIOLOGY (Per Emergency Physician): Interpretation per the Radiologist below, if available at the time of this note: XR CHEST (2 VW) Result Date: 06/24/2022 Patient Name: AMADO MARINELLI Diagnostic Radiology ACCESSION EXAM DATE/TIME PROCEDURE ORDERING PROVIDER [id number] 06/24/2022 10:19 EDT CR Chest PA & LAT [id number] -KYRA NGUYEN CPT code 36777 Reason For Exam (CR Chest PA & LAT) chest pain, shortness of breath Report CHEST: CLINICAL INDICATION: chest pain, shortness of breath TECHNIQUE: PA and Lateral COMPARISON: None FINDINGS: No focal consolidation or pulmonary edema. No pleural effusions or pneumothorax. The cardiac and mediastinal silhouettes are normal. The osseous structures are unremarkable. IMPRESSION: No focal consolidation or pulmonary edema. Report Dictated on --- Final --- Dictated: 06/24/2022 10:19 am Dictating Physician: MD MOTLEY KEVIN Signed Date and Time: (more content not included)... Normal [facility] SARS-CoV-2, Flu A/B and RSVo n 06-24-2022 SARS-CoV-2 (COVID-19) RNA TRINIDAD+probe Ql (Unsp spec) SARS-CoV-2 --> Status: F Not Detected. Flu A PCR --> Status: F Not Detected. Flu B PCR --> Status: F Not Detected. RSV PCR --> Status: F Not Detected. Expected Result: Not Detected _ Method: Real-time, RT-PCR This assay was developed by [employer] and distributed under an Emergency Use Authorization (EUA) granted by the FDA for the qualitative detection of nucleic acids from SARS-CoV-2, Influenza A, Influenza B, and Respiratory Syncytial Virus. Provider and patient fact sheets can be found at https://www.fda.gov/media /251520/download and https://www.fda.gov/media /335279/download. Expected Result: Not Detected _ Method: Real-time, RT-PCR This assay was developed by [employer] and distributed under an Emergency Use Authorization (EUA) granted by the FDA for the qualitative detection of nucleic acids from SARS-CoV-2, Influenza A, Influenza B, and Respiratory Syncytial Virus. Provider and patient fact sheets can be found at https://www.madvertise.gov/media /993590/download and https://www.madvertise.gov/media /428872/download. Normal [facility] Comment on above: Performed By: #### C VFLR #### [address] [address] , [address] Troponin Ion 06-24-2022 Troponin I.cardiac [Mass/Vol] ng/mL Normal 0.000-0.03 4 [facility] Comment on above: Result Comment: . Performed By: #### T ROPN #### [address] [address] Troponin x1on 06-24-2022 Troponin I.cardiac [Mass/Vol] ng/mL 0 - 0.034 ng/mL [facility] Comment on above: . Test Performed by [id number] [place] [address] LAB [facility] XR CHEST (2 VW)on 06-24-2022 Patient Name: AMADO MENA Diagnostic Radiology ACCESSION EXAM DATE/TIME PROCEDURE ORDERING PROVIDER [id number] 06/24/2022 10:19 EDT CR Chest PA & LAT [id number] -KYRA NGUYEN CPT code 65481 Reason For Exam (CR Chest PA & LAT) chest pain, shortness of breath Report CHEST: CLINICAL INDICATION: chest pain, shortness of breath TECHNIQUE: PA and Lateral COMPARISON: None FINDINGS: No focal consolidation or pulmonary edema. No pleural effusions or pneumothorax. The cardiac and mediastinal silhouettes are normal. The osseous structures are unremarkable. IMPRESSION: No focal consolidation or pulmonary edema. Report Dictated on --- Final --- Dictated: 06/24/2022 10:19 am Dictating Physician: MD MOTLEY KEVIN Signed Date and Time: 06/24/2022 10:19 am Signed by: MD MOTLEY KEVIN Transcribed Date and Time: 06/24/2022 10:19 [facility] RAD Adolfo Motley MD - 06/24/2022 [id number] Radiology ACCESSION EXAM DATE/TIME PROCEDURE ORDERING PROVIDER [id number] 06/24/2022 10:19 EDT CR Chest PA & LAT [id number] -KYRA NGUYEN CPT code 38516 Reason For Exam (CR Chest PA & LAT) chest pain, shortness of breath Report CHEST: CLINICAL INDICATION: chest pain, shortness of breath TECHNIQUE: PA and Lateral COMPARISON: None FINDINGS: No focal consolidation or pulmonary edema. No pleural effusions or pneumothorax. The cardiac and mediastinal silhouettes are normal. The osseous structures are unremarkable. IMPRESSION: No focal consolidation or pulmonary edema. Report Dictated on --- Final --- Dictated: 06/24/2022 10:19 am Dictating Physician: MD MOTLEY KEVIN Signed Date and Time: 06/24/2022 10:19 am Signed by: MD MOTLEY KEVIN Transcribed Date and Time: 06/24/2022 10:19 [facility] Work Phone: Radiology Study observation (narrative) [facility] Work Phone: XR CHEST (2 VW)Ordered By: Marely Motley on 06-24-2022 [facility] Work Phone: CR Elbow 3+ Views Righton CR Elbow 3+ Views Right Patient Name: AMADO SAMPSON Diagnostic Radiology Exam Date/Time 08/02/2020 07:49:59 EST Exam CR Elbow 3+ Views Right Ordering Physician MD COHEN VIJAY Accession Number [id number] CPT4 Codes 89385 () Reason For Exam injury Report Examination: Right forearm and elbow Clinical Indication: injury, pain Comparison: None Findings: Two views of the right forearm and three views of the right elbow demonstrate no gross evidence of fracture or subluxation. Normal age-appropriate bone mineralization. There is no soft tissue abnormality or radiopaque foreign body identified. No sizable elbow joint effusion. Mild soft tissue swelling medial and dorsal aspect of the elbow. Impression: Elbow soft tissue swelling. No evidence of fracture, subluxation, or other gross abnormality of the right forearm. Report Dictated on Workstation: [employer] Final Dictating Physician: MD ZAVALA ANTHONY J Signed Date and Time: 08/02/2020 7:59 am Signed by: MD ZAVALA ANTHONY J Transcribed Date and Time: 08/02/2020 8:00 Normal [facility] CR Forearm 2 Views Righton 1 10-02-2019 CR Forearm 2 Views Right Patient Name: AMADO PIERCE Diagnostic Radiology Exam Date/Time 08/02/2020 07:49:59 EST Exam CR Forearm 2 Views Right Ordering Physician MD COHEN VIJAY Accession Number [id number] CPT4 Codes 75049 () Reason For Exam injury Report Examination: Right forearm and elbow Clinical Indication: injury, pain Comparison: None Findings: Two views of the right forearm and three views of the right elbow demonstrate no gross evidence of fracture or subluxation. Normal age-appropriate bone mineralization. There is no soft tissue abnormality or radiopaque foreign body identified. No sizable elbow joint effusion. Mild soft tissue swelling medial and dorsal aspect of the elbow. Impression: Elbow soft tissue swelling. No evidence of fracture, subluxation, or other gross abnormality of the right forearm. Report Dictated on Workstation: [id number] Final Dictating Physician: MD ZAVALA ANTHONY J Signed Date and Time: 08/02/2020 7:59 am Signed by: MD ZAVALA ANTHONY J Transcribed Date and Time: 08/02/2020 8:00 Normal [facility] XR ELBOW RIGHT (MIN 3 VIEWS) on 08-02-2020 Patient Name: AMADO MENA ---Diagnostic Radiology--- Exam Date/Time 08/02/2020 07:49:59 EST Exam CR Elbow 3+ Views Right Ordering Physician MD COHEN VIJAY Accession Number [id number] CPT4 Codes 56181 () Reason For Exam injury Report Examination: Right forearm and elbow Clinical Indication: injury, pain Comparison: None Findings: Two views of the right forearm and three views of the right elbow demonstrate no gross evidence of fracture or subluxation. Normal age-appropriate bone mineralization. There is no soft tissue abnormality or radiopaque foreign body identified. No sizable elbow joint effusion. Mild soft tissue swelling medial and dorsal aspect of the elbow. Impression: Elbow soft tissue swelling. No evidence of fracture, subluxation, or other gross abnormality of the right forearm. Report Dictated on Workstation: [id number] --- Final --- Dictating Physician: MD ZAVALA ANTHONY J Signed Date and Time: 08/02/2020 7:59 am Signed by: MD ZAVALA ANTHONY J Transcribed Date and Time: 08/02/2020 8:00 [facility] [place], [facility], [facility] Incoming Radiology Results From [facility] - 08/02/2020 8:00 AM EST Patient Name: AMADO MARINELLI ---Diagnostic Radiology--- Exam Date/Time 08/02/2020 07:49:59 EST Exam CR Elbow 3+ Views Right Ordering Physician MD COHEN VIJAY Accession Number [id number] CPT4 Codes 52428 () Reason For Exam injury Report Examination: Right forearm and elbow Clinical Indication: injury, pain Comparison: None Findings: Two views of the right forearm and three views of the right elbow demonstrate no gross evidence of fracture or subluxation. Normal age-appropriate bone mineralization. There is no soft tissue abnormality or radiopaque foreign body identified. No sizable elbow joint effusion. Mild soft tissue swelling medial and dorsal aspect of the elbow. Impression: Elbow soft tissue swelling. No evidence of fracture, subluxation, or other gross abnormality of the right forearm. Report Dictated on Workstation: [id number] --- Final --- Dictating Physician: MD ZAVALA ANTHONY J Signed Date and Time: 08/02/2020 7:59 am Signed by: MD ZAVALA ANTHONY J Transcribed Date and Time: 08/02/2020 8:00 [facility], [place] [address] XR RADIUS ULNA RIGHT (2 VIEW S)on 08-02-2020 Patient Name: AMADO MENA ---Diagnostic Radiology--- Exam Date/Time 08/02/2020 07:49:59 EST Exam CR Forearm 2 Views Right Ordering Physician MD VICKI [facility] Accession Number [id number] CPT4 Codes 01989 () Reason For Exam injury Report Examination: Right forearm and elbow Clinical Indication: injury, pain Comparison: None Findings: Two views of the right forearm and three views of the right elbow demonstrate no gross evidence of fracture or subluxation. Normal age-appropriate bone mineralization. There is no soft tissue abnormality or radiopaque foreign body identified. No sizable elbow joint effusion. Mild soft tissue swelling medial and dorsal aspect of the elbow. Impression: Elbow soft tissue swelling. No evidence of fracture, subluxation, or other gross abnormality of the right forearm. Report Dictated on Workstation: [id number] ENRIQUE --- Final --- Dictating Physician: MD ZAVALA ANTHONY J Signed Date and Time: 08/02/2020 7:59 am Signed by: MD ZAVALA ANTHONY J Transcribed Date and Time: 08/02/2020 8:00 [facility], [place] Incoming Radiology Results From [facility] - 08/02/2020 8:00 AM EST Patient Name: AMADO MARINELLI ---Diagnostic Radiology--- Exam Date/Time 08/02/2020 07:49:59 EST Exam CR Forearm 2 Views Right Ordering Physician MD VICKI, SHAUNNA Accession Number [id number] CPT4 Codes 36073 () Reason For Exam injury Report Examination: Right forearm and elbow Clinical Indication: injury, pain Comparison: None Findings: Two views of the right forearm and three views of the right elbow demonstrate no gross evidence of fracture or subluxation. Normal age-appropriate bone mineralization. There is no soft tissue abnormality or radiopaque foreign body identified. No sizable elbow joint effusion. Mild soft tissue swelling medial and dorsal aspect of the elbow. Impression: Elbow soft tissue swelling. No evidence of fracture, subluxation, or other gross abnormality of the right forearm. Report Dictated on Workstation: [id number] --- Final --- Dictating Physician: MD ZAVALA ANTHONY J Signed Date and Time: 08/02/2020 7:59 am Signed by: MD ZAVALA ANTHONY J Transcribed Date and Time: 08/02/2020 8:00 [place], [place] Basic Metabolic Panelon 10-0 Anion gap [Moles/Vol] 9 Normal [facility] Comment on above: Performed By: #### E SR, BMP3, HEMDF, CRP2 #### [facility] [address] [place] [address] Calcium [Mass/Vol] 9.8 mg/dL Normal 8.4-10.4 [facility] Comment on above: Performed By: #### E SR, BMP3, HEMDF, CRP2 #### [facility] [address] [place] [address] CO2 [Moles/Vol] 28 mmol/L Normal 22-30 [facility] Comment on above: Performed By: #### E SR, BMP3, HEMDF, CRP2 #### [facility] [address] [place] [address] Glucose [Mass/Vol] 113 mg/dL High 70-100 [facility] Comment on above: Performed By: #### E SR, BMP3, HEMDF, CRP2 #### [facility] [address] [place] [address] Urea nitrogen [Mass/Vol] 11 mg/dL Normal 7-20 [facility] Comment on above: Performed By: #### E SR, BMP3, HEMDF, CRP2 #### [facility] [address] [place] [address] Creatinine [Mass/Vol] 0.89 mg/dL Normal 0.52-1.25 [facility] Comment on above: Performed By: #### E SR, BMP3, HEMDF, CRP2 #### [facility] [address] [place] [address] GFR/1.73 sq M predicted among blacks MDRD (S/P/Bld) [Vol rate/Area] mL/min/{1.73_m2} Normal >60 [facility] Comment on above: Performed By: #### E SR, BMP3, HEMDF, CRP2 #### [facility] [address] [place] [address] GFR/1.73 sq M predicted among non-blacks MDRD (S/P/Bld) [Vol rate/Area] mL/min/{1.73_m2} Normal >60 [facility] Comment on above: Result Comment: KDIG O guidelines provide the following GFR categories: Stage GFR(ml/min/1.73 m2) Terms G1 >=90 Normal or high G2 60-89 Mildly decreased* G3a 45-59 Mildly to moderately decreased G3b 30-44 Moderately to severely decreased G4 15-29 Severely decreased G5 <15 Kidney failure *Relative to young adult level. In the absence of evidence of kidney damage, neither GFR category G1 nor G2 fulfill the criteria for CKD. The CKD-EPI equation is validated in individuals 18 years of age and older. Currently the best equation for estimating glomerular filtration rate (GFR) from serum creatinine in children is the Bedside Benitez equation. It is less accurate in patients with extremes of muscle mass, restriction of dietary protein, ingestion of creatine, extra-renal metabolism of creatinine, or treatment with medications that affect renal tubular creatinine secretion. Performed By: #### E SR, BMP3, HEMDF, CRP2 #### [facility] [address] [place] [address] Potassium [Moles/Vol] 3.9 mmol/L Normal 3.5-5.1 [facility] Comment on above: Performed By: #### E SR, BMP3, HEMDF, CRP2 #### [facility] [address] [place] [address] Sodium [Moles/Vol] 137 mmol/L Normal 135-145 [facility] Comment on above: Performed By: #### E SR, BMP3, HEMDF, CRP2 #### [facility] [address] [place] [address] Chloride [Moles/Vol] 100 mmol/L Normal 98-107 [facility] Comment on above: Performed By: #### E SR, BMP3, HEMDF, CRP2 #### [facility] [address] [place] [address] Anion gap [Moles/Vol] 9 mmol/L [place], [place] Calcium [Mass/Vol] 9.8 mg/dL 8.4 - 10. 4 mg/dL [place], [place] Chloride [Moles/Vol] 100 mmol/L 98 - 10 7 mmol/L [place] CO2 [Moles/Vol] 28 mmol/L 22 - 30 mmol/L [place] Creatinine [Mass/Vol] 0.89 mg/dL 0.52 - 1.25 mg/dL [place], [place] EGFR IF NonAfrican Cymro >90.0 >60 mL/min [place], [place] Comment on above: KDIGO guidelines pro vide the following GFR categories: Stage GFR(ml/min/1.73 m2) Terms G1 >=90 Normal or high G2 60-89 Mildly decreased* G3a 45-59 Mildly to moderately decreased G3b 30-44 Moderately to severely decreased G4 15-29 Severely decreased G5 <15 Kidney failure *Relative to young adult level. In the absence of evidence of kidney damage, neither GFR category G1 nor G2 fulfill the criteria for CKD. The CKD-EPI equation is validated in individuals 18 years of age and older. Currently the best equation for estimating glomerular filtration rate (GFR) from serum creatinine in children is the Bedside Benitez equation. It is less accurate in patients with extremes of muscle mass, restriction of dietary protein, ingestion of creatine, extra-renal metabolism of creatinine, or treatment with medications that affect renal tubular creatinine secretion. GFR/1.73 sq M predicted among blacks MDRD (S/P/Bld) [Vol rate/Area] mL/min/{1.73_m2} >60 mL/min [place], [place] Glucose [Mass/Vol] 113 mg/dL High 70 - 100 mg/dL [place] Potassium [Moles/Vol] 3.9 mmol/L 3.5 - 5.1 mmol/L [place] Sodium [Moles/Vol] 137 mmol/L 135 - 145 mmol/L [place] Urea nitrogen [Mass/Vol] 11 mg/dL 7 - 20 mg/dL [place] C-Reactive Proteinon 020 CRP [Mass/Vol] 58.9 mg/L High 0.0-6.0 [facility] Comment on above: Result Comment: . Performed By: #### E SR, BMP3, HEMDF, CRP2 #### [facility] [address] [place] [address] CRP [Mass/Vol] 58.9 mg/L High 0 - 6 mg/L [place], [place] Comment on above: . [facility] Hand Complete 3+ Views Right Patient Name: AMADO MARINELLI Diagnostic Radiology Exam Date/Time 06/10/2020 15:05:25 EDT Exam CR Hand Complete 3+ Views Right Ordering Physician MD KIMBERLY, BEARDEN Accession Number [id number] CPT4 Codes 56085 () Reason For Exam R hand infection, middle of palm and ventral side of R thumb Report Right hand CLINICAL INDICATION: Right hand infection. COMPARISON: 06/08/2020 PA, oblique and lateral views were obtained. There is no bone destruction identified. No radiopaque foreign bodies are noted in the soft tissues and there is no soft tissue air. There is evidence of swelling in the thenar eminence region which appears similar to the prior exam. IMPRESSION: No evidence of acute osteomyelitis No foreign body or soft tissue air is noted associated with the soft tissue swelling in the thenar eminence region Report Dictated on Final Dictating Physician: MD LEVIN DIANE Signed Date and Time: 06/10/2020 3:22 pm Signed by: MD LEVIN DIANE Transcribed Date and Time: 06/10/2020 3:23 Normal [facility] Hemogram (CBC) w/Auto Diffon 06-10-2020 Absolute Baso # 0.1 10*3/uL 0 - 0.2 10*3/uL [place] Absolute Neut # 8.6 10*3/uL High 1.8 - 7 10*3/uL [place] Basophils/100 WBC (Bld) 0.5 % 0 - 2 % [place] Eosinophils (Bld) [#/Vol] 0.1 10*3/uL 0 - 0.5 10*3/uL [place] Eosinophils/100 WBC (Bld) 1.1 % 1 - 6 % [place] Erythrocyte distribution width (RBC) [Ratio] 14.2 % 11.5 - 14.5 % [place] Granulocytes/100 WBC (Bld) 71.5 % 40 - 80 % [place] Hematocrit (Bld) [Volume fraction] 43.2 % 40 - 52 % [place] Hemoglobin (Bld) [Mass/Vol] 15.1 g/dL 13 - 18 g/dL [place] Interpretation and review of laboratory results Abnormal [place] Lymphocytes (Bld) [#/Vol] 2.1 10*3/uL 1 - 4.3 10*3/uL [place] Lymphocytes/100 WBC (Bld) 17.1 % Low 20 - 40 % [place] MCH (RBC) [Entitic mass] 28.0 pg 26 - 34 pg [place] MCHC (RBC) [Mass/Vol] 34.9 % 32 - 36 % [place] MCV (RBC) [Entitic vol] 80.2 fL 80 - 98 fL [place] Monocytes (Bld) [#/Vol] 1.2 10*3/uL High 0 - 0.8 10*3/uL [place] Monocytes/100 WBC (Bld) 9.8 % 2 - 10 % [place] Platelet mean volume (Bld) [Entitic vol] 7.1 fL Low 7.4 - 10.4 fL [place] Platelets (Bld) [#/Vol] 429 10*3/uL 140 - 440 10*3/uL [place] RBC (Bld) [#/Vol] 5.39 10*6/uL 4.4 - 5.9 10*6/uL [place] WBC (Bld) [#/Vol] 12.0 10*3/uL High 3.6 - 10.7 10*3/uL [place] Test Performed by [facility], [address] , [place], [place] [id number] [place] [address] Hemogram w/ Autodiffon 06-10 Abs Baso Cnt 0.1 10*3/uL Normal 0.0-0.2 [facility] Comment on above: Performed By: #### E SR, BMP3, HEMDF, CRP2 #### [facility] [address] [place] [address] Abs Neutrophile Cnt 8.6 10*3/uL High 1.8-7.0 [facility] Comment on above: Performed By: #### E SR, BMP3, HEMDF, CRP2 #### [facility] [address] [place] [address] Basophils/100 WBC (Bld) 0.5 % Normal 0.0-2.0 [facility] Comment on above: Performed By: #### E SR, BMP3, HEMDF, CRP2 #### [facility] [address] [place] [address] Eosinophils (Bld) [#/Vol] 0.1 10*3/uL Normal 0.0-0.5 [facility] Comment on above: Performed By: #### E SR, BMP3, HEMDF, CRP2 #### [facility] [address] [place] [address] Eosinophils/100 WBC (Bld) 1.1 % Normal 1.0-6.0 [facility] Comment on above: Performed By: #### E SR, BMP3, HEMDF, CRP2 #### [facility] [address] [place] [address] Erythrocyte distribution width (RBC) [Ratio] 14.2 % Normal 11.5-14.5 [facility] Comment on above: Performed By: #### E SR, BMP3, HEMDF, CRP2 #### [facility] [address] [place] [address] Granulocytes/100 WBC (Bld) 71.5 % Normal 40.0-80.0 [facility] Comment on above: Performed By: #### E SR, BMP3, HEMDF, CRP2 #### [facility] [address] [place] [address] Hematocrit (Bld) [Volume fraction] 43.2 % Normal 40.0-52.0 [facility] Comment on above: Performed By: #### E SR, BMP3, HEMDF, CRP2 #### [facility] [address] [place] [address] Hemoglobin (Bld) [Mass/Vol] 15.1 g/dL Normal 13.0-18.0 [facility] Comment on above: Performed By: #### E SR, BMP3, HEMDF, CRP2 #### [facility] [address] [place] [address] Lymphocytes (Bld) [#/Vol] 2.1 10*3/uL Normal 1.0-4.3 [facility] Comment on above: Performed By: #### E SR, BMP3, HEMDF, CRP2 #### [facility] [address] [place] [address] Lymphocytes/100 WBC (Bld) 17.1 % Low 20.0-40.0 [facility] Comment on above: Performed By: #### E SR, BMP3, HEMDF, CRP2 #### [facility] [address] [place] [address] MCH (RBC) [Entitic mass] 28.0 pg Normal 26.0-34.0 [facility] Comment on above: Performed By: #### E SR, BMP3, HEMDF, CRP2 #### [facility] [address] [place] [address] MCHC (RBC) [Mass/Vol] 34.9 % Normal 32.0-36.0 [facility] Comment on above: Performed By: #### E SR, BMP3, HEMDF, CRP2 #### [facility] [address] [place] [address] MCV (RBC) [Entitic vol] 80.2 fL Normal 80.0-98.0 [facility] Comment on above: Performed By: #### E SR, BMP3, HEMDF, CRP2 #### [facility] [address] [place] [address] Monocytes (Bld) [#/Vol] 1.2 10*3/uL High 0.0-0.8 [facility] Comment on above: Performed By: #### E SR, BMP3, HEMDF, CRP2 #### [facility] [address] [place] [address] Monocytes/100 WBC (Bld) 9.8 % Normal 2.0-10.0 [facility] Comment on above: Performed By: #### E SR, BMP3, HEMDF, CRP2 #### [facility] [address] [place] [address] Platelet mean volume (Bld) [Entitic vol] 7.1 fL Low 7.4-10.4 [facility] Comment on above: Performed By: #### E SR, BMP3, HEMDF, CRP2 #### [facility] [address] [place] [address] Platelets (Bld) [#/Vol] 429 10*3/uL Normal 140-440 [facility] Comment on above: Performed By: #### E SR, BMP3, HEMDF, CRP2 #### [facility] [address] [place] [address] RBC (Bld) [#/Vol] 5.39 10*6/uL Normal 4.40-5.90 [facility] Comment on above: Performed By: #### E SR, BMP3, HEMDF, CRP2 #### [facility] [address] [place] [address] WBC (Bld) [#/Vol] 12.0 10*3/uL High 3.6-10.7 [facility] Comment on above: Performed By: #### E SR, BMP3, HEMDF, CRP2 #### [facility] [address] [place] [address] Otheron 06-10-2020 Interpretation and review of laboratory results Abnormal [place] Test Performed by [facility], [address] , [place], [place] [address] [facility] [place] [place] Sed Rateon 06-10-2020 Sed Rate 44 mm/h High 0-10 [facility] Comment on above: Performed By: #### E SR, BMP3, HEMDF, CRP2 #### [facility] [address] [place] [address] Sedimentation Rateon 020 Interpretation and review of laboratory results Abnormal [place] Sed Rate 44 mm/h High 0 - 10 mm/h [facility] [place] Test Performed by [facility], [address] , [place], [place] [address] [facility] [employer], [place] CR Hand Complete 3+ Views [facility] 06-08-2020 CR Hand Complete 3+ Views Right Patient Name: AMADO MARINELLI Diagnostic Radiology Exam Date/Time 06/08/2020 19:23:50 EDT Exam CR Hand Complete 3+ Views Right Ordering Physician MD SOFIA, LA AYON Accession Number [id number] CPT4 Codes 13712 () Reason For Exam hand injury Report RIGHT HAND THREE VIEWS CLINICAL INDICATION: hand injury TECHNIQUE: Three views of the right hand. COMPARISON: 11/12/2003 FINDINGS: Joint spaces are maintained. No acute fracture, dislocation, or acute bone destruction. No foreign body seen. IMPRESSION: 1. No significant finding. Report Dictated on Final Dictating Physician: MD GRIFFIN JOHN R Signed Date and Time: 06/08/2020 8:05 pm Signed by: MD GRIFFIN JOHN R Transcribed Date and Time: 06/08/2020 8:07 Normal [facility] XR HAND RIGHT (MIN 3 VIEWS)o n 06-08-2020 Patient Name: AMADO MENA ---Diagnostic Radiology--- Exam Date/Time 06/08/2020 19:23:50 EDT Exam CR Hand Complete 3+ Views Right Ordering Physician MD BLACK LISA MARIE Accession Number [id number] CPT4 Codes 39778 () Reason For Exam hand injury Report RIGHT HAND THREE VIEWS CLINICAL INDICATION: hand injury TECHNIQUE: Three views of the right hand. COMPARISON: 11/12/2003 FINDINGS: Joint spaces are maintained. No acute fracture, dislocation, or acute bone destruction. No foreign body seen. IMPRESSION: 1. No significant finding. Report Dictated on --- Final --- Dictating Physician: MD GRIFFIN JOHN R Signed Date and Time: 06/08/2020 8:05 pm Signed by: MD GRIFFIN JOHN R Transcribed Date and Time: 06/08/2020 8:07 [facility] [place], [place] Tom, [facility] Incoming Radiology Results From [facility] - 06/08/2020 8:07 PM EDT Patient Name: AMADO MARINELLI ---Diagnostic Radiology--- Exam Date/Time 06/08/2020 19:23:50 EDT Exam CR Hand Complete 3+ Views Right Ordering Physician MD SOFIA, [place] AYON Accession Number [id number] CPT4 Codes 53147 () Reason For Exam hand injury Report RIGHT HAND THREE VIEWS CLINICAL INDICATION: hand injury TECHNIQUE: Three views of the right hand. COMPARISON: 11/12/2003 FINDINGS: Joint spaces are maintained. No acute fracture, dislocation, or acute bone destruction. No foreign body seen. IMPRESSION: 1. No significant finding. Report Dictated on --- Final --- Dictating Physician: MD GRIFFIN JOHN R Signed Date and Time: 06/08/2020 8:05 pm Signed by: MD GABY, CHAVO Jasso Transcribed Date and Time: 06/08/2020 8:07 [facility], [place] WRIST INJURY 4V PA/LAT/OBL/S CAPH LEFTon 04-11-2018 WRIST INJURY 4V PA/LAT/OBL/SCAPH LEFT Performed at [facility] APPROVED BY: Felipe Chakraborty MD LEFT WRIST, PA, OBLIQUE, ULNAR FLEXION AND LATERAL: CLINICAL INDICATION: Left wrist injury. Left wrist pain. COMPARISON: Left hand radiographs 02/18/2018. The joint spaces are preserved. There is no acute fracture or dislocation. The soft tissues are unremarkable. IMPRESSION: No acute osseous abnormality. If there is persistent clinical concern for scaphoid injury based on physical exam findings, close follow-up radiographs are recommended. Normal [facility] ABO/Rh Confirmationon 2017 ABO group Nom (Bld) A Normal [facility] Comment on above: Performed By: #### A DENISE #### [place] [address] RH Type Positive Normal [facility] Comment on above: Performed By: #### A DENISE #### [place] [address] Activated PTTon 02-18-2018 aPTT Coag time (Bld) 23.3 s Normal 22.0-34.0 [facility] Comment on above: Performed By: #### A PTT #### [place] [address] Basic Panelon 02-18-2018 Creatinine mass conc 0.99 mg/dL Normal 0.67-1.17 [facility] Comment on above: Performed By: #### P 8 #### [place] [address] Anion gap molar conc 12 mmol/L Normal 8-16 [facility] Comment on above: Performed By: #### P 8 #### [place] [address] CO2 molar conc 25 mmol/L Normal 21-32 [facility] Comment on above: Performed By: #### P 8 #### [address] [place], [place] [address] Glucose mass conc 114 mg/dL High 70-99 [facility] Comment on above: Performed By: #### P 8 #### [facility] [address] [place], [place] [address] Urea nitrogen mass conc 13 mg/dL Normal 7-18 [facility] Comment on above: Performed By: #### P 8 #### [facility] [address] [place], [place] [address] Calcium mass conc 9.3 mg/dL Normal 8.5-10.1 [facility] Comment on above: Performed By: #### P 8 #### [facility] [address] [place], [place] [address] Chloride molar conc 106 mmol/L Normal 98-107 [facility] Comment on above: Performed By: #### P 8 #### [facility] [address] [place], [place] [address] Potassium molar conc 4.0 mmol/L Normal 3.5-5.1 [facility] Comment on above: Performed By: #### P 8 #### [facility] [address] [place], [place] [address] Sodium molar conc 139 mmol/L Normal 136-145 [facility] Comment on above: Performed By: #### P 8 #### [facility] [address] [place], [place] [address] HAND 3V PA/LAT/OBL LEFTon HAND 3V PA/LAT/OBL LEFT Performed at [facility] APPROVED BY: Jes Weems MD EXAM TITLE: HAND 3V PA/LAT/OBL LEFT DATE: 02/18/2018 14:36 INDICATION: Multiple left hand lacerations with glass COMPARISON: None. FINDINGS: Positioning is suboptimal. Within these limitations, no fractures or dislocations are identified. Joint spaces are maintained. There are no radiopaque foreign bodies identified within the soft tissues. IMPRESSION: Within the limits discussed, no acute osseous abnormality. Normal [facility] Hemogram/Diffon 02-18-2018 Abs Immature Grans 0.07 thou/cmm High 0.00-0.05 [facility] Comment on above: Performed By: #### C BCD1 #### [facility] [address] [place] [address] Abs. Baso 0.06 thou/cmm Normal 0.01-0.08 [facility] Comment on above: Performed By: #### C BCD1 #### [facility] [address] [place] [address] Abs. Harper 0.74 thou/cmm Normal 0.30-0.82 [facility] Comment on above: Performed By: #### C BCD1 #### [facility] [address] [place] [address] Abs. Neut (ANC) 3.29 thou/cmm Normal 1.78-5.38 [facility] Comment on above: Performed By: #### C BCD1 #### [facility] [address] [place] [address] Basophils/100 WBC (Bld) 0.9 % Normal [facility] Comment on above: Performed By: #### C BCD1 #### [facility] [address] [place] [address] Eosinophils #/vol (Bld) 0.20 thou/cmm Normal 0.04-0.54 [facility] Comment on above: Performed By: #### C BCD1 #### [facility] [address] [place] [address] Eosinophils/100 WBC (Bld) 3.1 % Normal [facility] Comment on above: Performed By: #### C BCD1 #### [facility] [address] [place] [address] Erythrocyte distribution width Ratio (RBC) 13.5 % Normal 11.6-14.4 [facility] Comment on above: Performed By: #### C BCD1 #### [facility] [address] [place] [address] Hematocrit Volume Fraction (Bld) 46.1 % Normal 40.1-51.0 [facility] Comment on above: Performed By: #### C BCD1 #### [facility] [address] [place] [address] Hemoglobin mass conc (Bld) 15.3 g/dL Normal 13.7-17.5 [facility] Comment on above: Performed By: #### C BCD1 #### [facility] [address] [place] [address] Immature Grans 1.10 % Normal [facility] Comment on above: Performed By: #### C BCD1 #### [facility] [address] [place] [address] Lymphocytes #/vol (Bld) 2.02 thou/cmm Normal 0.84-2.85 [facility] Comment on above: Performed By: #### C BCD1 #### [facility] [address] [place] [address] Lymphocytes/100 WBC (Bld) 31.7 % Normal [facility] Comment on above: Performed By: #### C BCD1 #### [facility] [address] [place] [address] MCH Entitic mass (RBC) 28.2 pg Normal 25.7-32.2 [facility] Comment on above: Performed By: #### C BCD1 #### [facility] [address] [place] [address] MCHC mass conc (RBC) 33.2 % Normal 32.3-36.5 [facility] Comment on above: Performed By: #### C BCD1 #### [facility] [address] [place], [place] [address] MCV Entitic volume (RBC) 84.9 fL Normal 83.2-95.6 [facility] Comment on above: Performed By: #### C BCD1 #### [facility] [address] [place] [address] Monocytes/100 WBC (Bld) 11.6 % Normal [facility] Comment on above: Performed By: #### C BCD1 #### [facility] [address] [place] [address] Platelet mean volume Entitic volume (Bld) 9.8 fL Normal 8.7-12.0 [facility] Comment on above: Performed By: #### C BCD1 #### [facility] [address] [place] [address] Platelets #/vol (Bld) 214 thou/cmm Normal 141-365 [facility] Comment on above: Performed By: #### C BCD1 #### [facility] [address] [place] [address] RBC #/vol (Bld) 5.43 mil/cmm Normal 4.63-6.08 [facility] Comment on above: Performed By: #### C BCD1 #### [facility] [address] [place] [address] RDW SD 42.0 fl Normal 36.1-45.8 [facility] Comment on above: Performed By: #### C BCD1 #### [facility] [address] [place] [address] Seg Neutrophil 51.6 % Normal [facility] Comment on above: Performed By: #### C BCD1 #### [place] [address] WBC #/vol (Bld) 6.37 thou/cmm Normal 4.23-9.07 [facility] Comment on above: Performed By: #### C BCD1 #### [place] [address] MDRD GFRon 02-18-2018 GFR/1.73 sq M predicted among non-blacks MDRD vol rate/area (S/P/Bld) mL/min/{1.73_m2} Normal >60mL/min/ 1.73m2 [facility] Comment on above: Result Comment: If t he patient is , multiply the result by 1.210. Performed By: #### G FR #### [place] [address] Protimeon 02-18-2018 INR Coag RelTime (PPP) 0.88 {INR} Normal [facility] Comment on above: Result Comment: Brent dard Therapy 2.0-3.0 High Dose 2.5-3.5 Performed By: #### P T #### [place] [address] Prothrombin time (PT) Coag time (PPP) 9.6 s Normal 9.3-11.9 [facility] Comment on above: Performed By: #### P T #### [facility] [address] [place] [address] Type and Screenon 02-18-2018 ABO group Nom (Bld) A Normal [facility] Comment on above: Performed By: #### T &S #### [facility] [address] [place] [address] Comment See Below Normal [facility] Comment on above: Result Comment: Scre en &/or Xmatch expires in 3 days at 12 midnight. Redraw patient at that time. Performed By: #### T &S #### [facility] [address] [place] [address] RH Type Positive Normal [facility] Comment on above: Performed By: #### T &S #### [facility] [address] [place] [address] Vital Signs Date Time Vital Sign Value Performing Clinician Facility 04-14-2025 22:05-0400 Diastolic blood pressure 97 mm[Hg] Kady Sahu MD Work Phone: [facility] 04-14-2025 22:05-0400 Heart rate 67 /min Kady Sahu MD Work Phone: [facility] 04-14-2025 22:05-0400 Respiratory rate 18 /min Kady Sahu MD Work Phone: [facility] 04-14-2025 22:05-0400 SaO2% (BldA) [Mass fraction] 97 % Kady Sahu MD Work Phone: [facility] 04-14-2025 22:05-0400 Systolic blood pressure 142 mm[Hg] Kady Sahu MD Work Phone: [facility] 04-14-2025 19:41-0400 Body height 182.9 cm Kady Sahu MD Work Phone: [facility] 04-14-2025 19:41-0400 Body mass index (BMI) [Ratio] 26.45 kg/m2 Kady Sahu MD Work Phone: [facility] 04-14-2025 19:41-0400 Body temperature 97.5 [degF] Kady Sahu MD Work Phone: [facility] 04-14-2025 19:41-0400 Body weight 88.45 kg Kady Sahu MD Work Phone: [facility] 03-20-2025 11:34-0400 Diastolic blood pressure 93 mm[Hg] Wagner Cifuentes DO Work Phone: [facility] 03-20-2025 11:34-0400 Heart rate 59 /min Wagner Cifuentes DO Work Phone: [facility] 03-20-2025 11:34-0400 Respiratory rate 18 /min Wagner Cifuentes DO Work Phone: [facility] 03-20-2025 11:34-0400 SaO2% (BldA) [Mass fraction] 97 % Wagner Cifuentes DO Work Phone: [facility] 03-20-2025 11:34-0400 Systolic blood pressure 132 mm[Hg] Wagner Cifuentes DO Work Phone: [facility] 03-20-2025 08:52-0400 Body height 182.9 cm Wagner Cifuentes DO Work Phone: [facility] 03-20-2025 08:52-0400 Body mass index (BMI) [Ratio] 29.43 kg/m2 Wagner Cifuentes DO Work Phone: [facility] 03-20-2025 08:52-0400 Body temperature 98.49 [degF] Wagner Cifuentes DO Work Phone: [facility] 03-20-2025 08:52-0400 Body weight 98.43 kg Wagner Cifuentes DO Work Phone: [facility] 03-05-2025 11:26-0400 Body height 182.9 cm Harriet Rivera MD Work Phone: [facility] 03-05-2025 11:26-0400 Body mass index (BMI) [Ratio] 27.07 kg/m2 Harriet Rivera MD Work Phone: [facility] 03-05-2025 11:26-0400 Body weight 90.54 kg Harriet Rivera MD Work Phone: [facility] 03-05-2025 11:26-0400 Diastolic blood pressure 62 mm[Hg] Harriet Rivera MD Work Phone: [facility] 03-05-2025 11:26-0400 Heart rate 77 /min Harriet Rivera MD Work Phone: [facility] 03-05-2025 11:26-0400 Systolic blood pressure 122 mm[Hg] Harriet Rivera MD Work Phone: [facility] 02-09-2025 16:24-0400 Body height 182.88 cm Jennifer Mathur DITCHING [employer]ACHINE ENGINEER[employer]C Work Phone: [facility] 02-09-2025 16:24-0400 Body temperature 98.1 [degF] Jennifer Mathur DITCHING MACHINE ENGINEER-C Work Phone: [phone] [place] [address] 02-09-2025 16:24-0400 Diastolic blood pressure 91 mm[Hg] Jennifer Mathur DITCHING MACHINE ENGINEER-C Work Phone: 1(518)003-585833 [place] [address] 02-09-2025 16:24-0400 Heart rate 76 /min Jennifer Mathur DITCHING MACHINE ENGINEER-C Work Phone: 1(583)[phone] [place] [address] 02-09-2025 16:24-0400 Respiratory rate 19 /min Jennifer Mathur DITCHING MACHINE ENGINEER-C Work Phone: [phone](765)[phone] [place] [address] 02-09-2025 16:24-0400 SaO2% (BldA) [Mass fraction] 98 % Jennifer Mathur DITCHING MACHINE ENGINEER-C Work Phone: [facility] 02-09-2025 16:24-0400 Systolic blood pressure 132 mm[Hg] Jennifer Mathur DITCHING MACHINE ENGINEER-C Work Phone: [facility] 01-23-2025 11:45-0400 Diastolic blood pressure 91 mm[Hg] Harriet Rivera MD Work Phone: [facility] 01-23-2025 11:45-0400 Heart rate 58 /min Harriet Rivera MD Work Phone: [facility] 01-23-2025 11:45-0400 Respiratory rate 14 /min Harriet Rivera MD Work Phone: [facility] 01-23-2025 11:45-0400 SaO2% (BldA) [Mass fraction] 97 % Harriet Rivera MD Work Phone: [facility] 01-23-2025 11:45-0400 Systolic blood pressure 119 mm[Hg] Harriet Rivera MD Work Phone: [facility] 01-23-2025 11:18-0400 Body temperature 97.11 [degF] Harriet Rivera MD Work Phone: [facility] 01-23-2025 07:56-0400 Body height 182.9 cm Harriet Rivera MD Work Phone: [facility] 01-23-2025 07:56-0400 Body mass index (BMI) [Ratio] 29.43 kg/m2 Harriet Rivera MD Work Phone: [facility] 01-23-2025 07:56-0400 Body weight 98.43 kg Harriet Rivera MD Work Phone: [facility] 12-28-2024 01:00-0400 Heart rate 62 /min Jennifer Mathur DITCHING MACHINE ENGINEER-C Work Phone: [facility] 12-28-2024 01:00-0400 Respiratory rate 10 /min Jennifer Mathur DITCHING MACHINE ENGINEER-C Work Phone: [facility] 12-28-2024 01:00-0400 SaO2% (BldA) [Mass fraction] 99 % Jennifer Mathur DITCHING MACHINE ENGINEER-C Work Phone: [facility] 12-28-2024 00:45-0400 Diastolic blood pressure 102 mm[Hg] Jennifer Mathur DITCHING MACHINE ENGINEER-C Work Phone: [facility] 12-28-2024 00:45-0400 Systolic blood pressure 128 mm[Hg] Jennifersukh Mathur DITCHING MACHINE ENGINEER-C Work Phone: [facility] 12-27-2024 21:45-0400 Body height 182.88 cm Jennifersukh Mathur DITCHING MACHINE ENGINEER-C Work Phone: [facility] 12-27-2024 21:45-0400 Body mass index (BMI) [Ratio] 28 kg/m2 Jennifer Mathur DITCHING MACHINE ENGINEER-C Work Phone: [facility] 12-27-2024 21:45-0400 Body temperature 98.3 [degF] Jennifersukh Mathur DITCHING MACHINE ENGINEER-C Work Phone: [facility] 12-27-2024 21:45-0400 Body weight 93.89 kg Jennifersukh Mathur DITCHING MACHINE ENGINEER-C Work Phone: [facility] 10-23-2024 14:20-0500 Body height 182.9 cm Harriet Rivera MD Work Phone: [facility] 10-23-2024 14:20-0500 Body mass index (BMI) [Ratio] 28.48 kg/m2 Harriet Rivera MD Work Phone: [facility] 10-23-2024 14:20-0500 Body weight 95.25 kg Harriet Rivera MD Work Phone: [facility] 10-23-2024 14:20-0500 Diastolic blood pressure 83 mm[Hg] Harriet Rivera MD Work Phone: [facility] 10-23-2024 14:20-0500 Heart rate 88 /min Harriet Rivera MD Work Phone: [facility] 10-23-2024 14:20-0500 SaO2% (BldA) [Mass fraction] 98 % Harriet Rivera MD Work Phone: [facility] 10-23-2024 14:20-0500 Systolic blood pressure 134 mm[Hg] Harriet Rivera MD Work Phone: [facility] 10-13-2024 09:31-0500 Body height 182.9 cm GARRETT CANO MD [facility] 10-13-2024 09:31-0500 Body temperature 97.7 [degF] GARRETT CANO MD [facility] 10-13-2024 09:31-0500 Body weight 97.7 kg GARRETT CANO MD [facility] 10-13-2024 09:31-0500 Diastolic Blood Pressure Non-Invasive 84 mm[Hg] GARRETT CANO MD [facility] 10-13-2024 09:31-0500 Heart rate 72 /min GARRETT CANO MD [facility] 10-13-2024 09:31-0500 Respiratory rate 18 /min GARRETT CANO MD [facility] 10-13-2024 09:31-0500 Systolic Blood Pressure Non-Invasive 124 mm[Hg] GARRETT CANO MD [facility] 09-17-2024 12:48-0500 Body temperature 97.1 [degF] Jennifer Mathur NP-C Work Phone: [facility] 09-17-2024 12:48-0500 Diastolic blood pressure 89 mm[Hg] Jennifer Mathur NP-C Work Phone: [facility] 09-17-2024 12:48-0500 Heart rate 82 /min Jennifer Mathur NP-C Work Phone: [facility] 09-17-2024 12:48-0500 Respiratory rate 16 /min Jennifer Mathur NP-C Work Phone: [facility] 09-17-2024 12:48-0500 SaO2% (BldA) [Mass fraction] 98 % Jennifer Mathur DITCHING MACHINE ENGINEER-C Work Phone: 1(833)027-[address]449 [place] [address] 09-17-2024 12:48-0500 Systolic blood pressure 156 mm[Hg] Jennifer Mathur DITCHING MACHINE ENGINEER-C Work Phone: 0(016)790-426049 [place] [address] 09-17-2024 11:03-0500 Body mass index (BMI) [Ratio] 30.1 kg/m2 Jennifer Mathur DITCHING MACHINE ENGINEER-C Work Phone: 6(857)248-253349 [place] [address] 09-17-2024 11:03-0500 Body weight 100.65 kg Jennifer Mathur DITCHING MACHINE ENGINEER-C Work Phone: 0(485)362-222249 [place] [address] 09-15-2024 11:51-0500 Body temperature 98 [degF] Jennifer Mathur DITCHING MACHINE ENGINEER-C Work Phone: 4(216)139-941049 [place] [address] 09-15-2024 11:51-0500 Diastolic blood pressure 78 mm[Hg] Jennifer Mathur DITCHING MACHINE ENGINEER-C Work Phone: 3(565)034-513849 [place] [address] 09-15-2024 11:51-0500 Heart rate 85 /min Jennifersukh Mathur DITCHING MACHINE ENGINEER-C Work Phone: 6(135)800-970249 [place] [address] 09-15-2024 11:51-0500 Respiratory rate 18 /min Jennifersukh Mathur DITCHING MACHINE ENGINEER-C Work Phone: 3(467)337-563249 [place] [address] 09-15-2024 11:51-0500 SaO2% (BldA) [Mass fraction] 97 % Jennifer Mathur DITCHING MACHINE ENGINEER-C Work Phone: 9(909)889-524849 [place] [address] 09-15-2024 11:51-0500 Systolic blood pressure 120 mm[Hg] Jennifer Mathur DITCHING MACHINE ENGINEER-C Work Phone: 5(709)694-097949 [place] [address] 09-15-2024 09:43-0500 Inhaled oxygen flow rate 6 L/min Jennifer Mathur DITCHING MACHINE ENGINEER-C Work Phone: 9(315)367-457449 [place] [address] 09-15-2024 06:29-0500 Body mass index (BMI) [Ratio] 29.5 kg/m2 Jennifer Mathur DITCHING MACHINE ENGINEER-C Work Phone: 3(602)265-519549 [place] [address] 09-15-2024 06:29-0500 Body weight 98.6 kg Jennifersukh Mathur DITCHING MACHINE ENGINEER-C Work Phone: [facility] 07-17-2024 18:14-0500 Body mass index (BMI) [Ratio] 29.3 kg/m2 Alfred Mike NUT ROASTER.ANNEALING FURNACE TENDER Work Phone: [facility] 07-17-2024 18:14-0500 Body temperature 98.71 [degF] Alfrednena Mckeon NUT ROASTER.ANNEALING FURNACE TENDER Work Phone: [facility] 07-17-2024 18:14-0500 Body weight 98 kg Alfred Mike NUT ROASTER.ANNEALING FURNACE TENDER Work Phone: [facility] 07-17-2024 18:14-0500 Diastolic blood pressure 84 mm[Hg] Alfred Mike NUT ROASTER.ANNEALING FURNACE TENDER Work Phone: [facility] 07-17-2024 18:14-0500 Heart rate 79 /min Alfred Mckeon NUT ROASTER.ANNEALING FURNACE TENDER Work Phone: [facility] 07-17-2024 18:14-0500 Respiratory rate 20 /min Alfred Mike NUT ROASTER.ANNEALING FURNACE TENDER Work Phone: [facility] 07-17-2024 18:14-0500 SaO2% (BldA) [Mass fraction] 98 % Alfred Mike NUT ROASTER.ANNEALING FURNACE TENDER Work Phone: [facility] 07-17-2024 18:14-0500 Systolic blood pressure 123 mm[Hg] Alfrednena Mckeon NUT ROASTER.ANNEALING FURNACE TENDER Work Phone: [facility] 03-11-2024 16:16-0400 Body mass index (BMI) [Ratio] 28.16 kg/m2 Celi Keane PA-C Work Phone: [facility] 03-11-2024 16:16-0400 Body temperature 98.2 [degF] Celi Keane PA-C Work Phone: [facility] 03-11-2024 16:16-0400 Body weight 90.72 kg Celi Keane PA-C Work Phone: [facility] 03-11-2024 16:16-0400 Diastolic blood pressure 83 mm[Hg] Celi Keane PA-C Work Phone: [facility] 03-11-2024 16:16-0400 Heart rate 70 /min Celi Chidi PA-C Work Phone: [facility] 03-11-2024 16:16-0400 Respiratory rate 18 /min Celi Keane PA-C Work Phone: [facility] 03-11-2024 16:16-0400 SaO2% (BldA) [Mass fraction] 96 % Celi Keane PA-C Work Phone: [facility] 03-11-2024 16:16-0400 Systolic blood pressure 125 mm[Hg] Celi Keane PA-C Work Phone: [facility] 10-25-2023 06:51-0500 Body temperature 98 [degF] [facility] 10-25-2023 06:51-0500 Diastolic blood pressure 89 mm[Hg] [facility] 10-25-2023 06:51-0500 Heart rate 89 /min [facility] 10-25-2023 06:51-0500 Respiratory rate 18 /min [facility] 10-25-2023 06:51-0500 SaO2% (BldA) [Mass fraction] 97 % [facility] 10-25-2023 06:51-0500 Systolic blood pressure 136 mm[Hg] [facility] 10-24-2023 13:32-0500 Body height 182.[address] [facility] 10-24-2023 13:32-0500 Body mass index (BMI) [Ratio] 27.2 kg/m2 [facility] 10-24-2023 13:32-0500 Body weight 91.[address] [facility] 10-17-2023 11:03-0500 Body height 182.[address] [facility] 10-17-2023 11:03-0500 Body mass index (BMI) [Ratio] 26.7 kg/m2 [facility] 10-17-2023 11:03-0500 Body temperature 97.7 [degF] [facility] 10-17-2023 11:03-0500 Body weight 89.[address] [facility] 10-17-2023 11:03-0500 Diastolic blood pressure 78 mm[Hg] [facility] 10-17-2023 11:03-0500 Heart rate 84 /min [facility] 10-17-2023 11:03-0500 Respiratory rate 16 /min [facility] 10-17-2023 11:03-0500 SaO2% (BldA) [Mass fraction] 100 % [facility] 10-17-2023 11:03-0500 Systolic blood pressure 127 mm[Hg] [facility] 10-09-2023 10:28-0500 Body height 182.9 cm RUBEN JOVEL MD [facility] 10-09-2023 10:28-0500 Body temperature 96.98 [degF] RUBEN JOVEL MD [facility] 10-09-2023 10:28-0500 Body weight 86.4 kg RUBEN JOVEL MD [facility] 10-09-2023 10:28-0500 Diastolic Blood Pressure Non-Invasive 82 mm[Hg] RUBEN JOVEL MD [facility] 10-09-2023 10:28-0500 Heart rate 101 /min RUBEN JOVEL MD [facility] 10-09-2023 10:28-0500 Respiratory rate 18 /min RUBEN JOVEL MD [facility] 10-09-2023 10:28-0500 Systolic Blood Pressure Non-Invasive 138 mm[Hg] RUBEN JOVEL MD [facility] 06-09-2023 14:20-0400 Body temperature 97.59 [degF] Adolfo Zepeda MD Work Phone: [facility] 06-09-2023 14:20-0400 Body weight 77.93 kg Adolfo Zepeda MD Work Phone: [facility] 06-09-2023 14:20-0400 Diastolic blood pressure 82 mm[Hg] Adolfo Zepeda MD Work Phone: [facility] 06-09-2023 14:20-0400 Heart rate 86 /min Adolfo Zepeda MD Work Phone: [facility] 06-09-2023 14:20-0400 Respiratory rate 16 /min Adolfo Zepeda MD Work Phone: [facility] 06-09-2023 14:20-0400 SaO2% (BldA) [Mass fraction] 96 % Adolfo Zepeda MD Work Phone: [facility] 06-09-2023 14:20-0400 Systolic blood pressure 128 mm[Hg] Adolfo Zepeda MD Work Phone: [facility] 05-26-2023 21:13-0400 Body temperature 97.3 [degF] [facility] 05-26-2023 21:13-0400 Diastolic blood pressure 81 mm[Hg] [facility] 05-26-2023 21:13-0400 Heart rate 89 /min [facility] 05-26-2023 21:13-0400 Respiratory rate 16 /min [facility] 05-26-2023 21:13-0400 SaO2% (BldA) [Mass fraction] 96 % [facility] 05-26-2023 21:13-0400 Systolic blood pressure 134 mm[Hg] [facility] 05-26-2023 19:28-0400 Body mass index (BMI) [Ratio] 27.1 kg/m2 [facility] 05-26-2023 19:28-0400 Body weight 90.[address] [facility] 05-26-2023 18:50-0400 Body height 182.[address] [facility] 05-05-2023 21:02-0400 Body temperature 97.5 [degF] [facility] 05-05-2023 21:02-0400 Diastolic blood pressure 79 mm[Hg] [facility] 05-05-2023 21:02-0400 Heart rate 67 /min [facility] 05-05-2023 21:02-0400 Respiratory rate 16 /min [facility] 05-05-2023 21:02-0400 SaO2% (BldA) [Mass fraction] 97 % [facility] 05-05-2023 21:02-0400 Systolic blood pressure 112 mm[Hg] [facility] 05-05-2023 21:00-0400 Body height 182.[address] [facility] 05-05-2023 21:00-0400 Body mass index (BMI) [Ratio] 25.2 kg/m2 [facility] 05-05-2023 21:00-0400 Body weight 84.[address] [facility] 03-18-2023 21:47-0400 Blood Pressure Cuff Size JORDYN COFFMAN MD [facility] 03-18-2023 21:47-0400 Blood Pressure Location JORDYN COFFMAN MD [facility] 03-18-2023 21:47-0400 Blood Pressure Method JORDYN COFFMAN MD [facility] 03-18-2023 21:47-0400 Body temperature 98.06 [degF] JORDYN COFFMAN MD [facility] 03-18-2023 21:47-0400 Diastolic Blood Pressure Non-Invasive 79 1 JORDYN COFFMAN MD [facility] 03-18-2023 21:47-0400 Heart rate 83 /min JORDYN COFFMAN MD [facility] 03-18-2023 21:47-0400 Respiratory rate 18 /min JORDYN COFFMAN MD [facility] 03-18-2023 21:47-0400 Systolic Blood Pressure Non-Invasive 132 1 JORDYN COFFMAN MD [facility] 01-08-2023 19:54-0400 Diastolic blood pressure 69 mm[Hg] [facility] 01-08-2023 19:54-0400 Heart rate 82 /min [facility] 01-08-2023 19:54-0400 Respiratory rate 16 /min [facility] 01-08-2023 19:54-0400 SaO2% (BldA) [Mass fraction] 95 % [facility] 01-08-2023 19:54-0400 Systolic blood pressure 135 mm[Hg] [facility] 01-08-2023 17:32-0400 Body height 187.[address] [facility] 01-08-2023 17:32-0400 Body mass index (BMI) [Ratio] 56.6 kg/m2 [facility] 01-08-2023 17:32-0400 Body temperature 98.2 [degF] [facility] 01-08-2023 17:32-0400 Body weight 200.[address] [facility] 06-24-2022 14:18-0400 Diastolic blood pressure 86 mm[Hg] Seng Glover MD Work Phone: [facility] 06-24-2022 14:18-0400 Heart rate 71 /min Seng Glover MD Work Phone: [facility] 06-24-2022 14:18-0400 Respiratory rate 16 /min Seng Glover MD Work Phone: [facility] 06-24-2022 14:18-0400 Systolic blood pressure 122 mm[Hg] Seng Glover MD Work Phone: [facility] 06-24-2022 13:11-0400 SaO2% (BldA) [Mass fraction] 99 % Seng Glover MD Work Phone: [facility] 06-24-2022 09:03-0400 Body height 180.3 cm Seng Glover MD Work Phone: [facility] 06-24-2022 09:03-0400 Body mass index (BMI) [Ratio] 25.8 kg/m2 Seng Glover MD Work Phone: [facility] 06-24-2022 09:03-0400 Body temperature 97.9 [degF] Seng Glover MD Work Phone: [facility] 06-24-2022 09:03-0400 Body weight 83.92 kg Seng Glover MD Work Phone: [facility] 04-01-2022 20:20-0400 Respiratory rate 18 /min [facility] Work Phone: 04-01-2022 19:31-0400 Body height 180.[address] [facility] Work Phone: 04-01-2022 19:31-0400 Body mass index (BMI) [Ratio] 25.7 kg/m2 [facility] Work Phone: 04-01-2022 19:31-0400 Body temperature 97.9 [degF] [facility] Work Phone: 04-01-2022 19:31-0400 Body weight 83.[address] [facility] Work Phone: 04-01-2022 19:31-0400 Diastolic blood pressure 93 mm[Hg] [facility] Work Phone: 04-01-2022 19:31-0400 Heart rate 89 /min [facility] Work Phone: 04-01-2022 19:31-0400 SaO2% (BldA) [Mass fraction] 100 % [facility] Work Phone: 04-01-2022 19:31-0400 Systolic blood pressure 131 mm[Hg] [facility] Work Phone: 09-25-2020 10:11-0500 Body Temperature 97.59 [degF] [facility] [place] 09-25-2020 10:11-0500 BP Diastolic 101 mm[Hg] [facility] , [place] 09-25-2020 10:11-0500 BP Systolic 146 mm[Hg] Myah Merida [facility] [place] , [place] 09-25-2020 10:11-0500 Pulse (Heart Rate) 103 /min Myah Blackwood [facility] [place], [place] 09-25-2020 10:11-0500 Pulse Oximetry 100 % [facility] [place] , [place] 09-25-2020 10:11-0500 Respiratory Rate 18 /min [facility] [place] 08-02-2020 07:26-0500 Body Temperature 98.01 [degF] [facility] [place] [place] 08-02-2020 07:26-0500 BP Diastolic 97 mm[Hg] [facility] [place] 08-02-2020 07:26-0500 BP Systolic 137 mm[Hg] [facility] [place] 08-02-2020 07:26-0500 Pulse (Heart Rate) 97 /min [facility] [place] [place] 08-02-2020 07:26-0500 Pulse Oximetry 100 % Shaunna SpauldingCount includes the [facility] [place] 08-02-2020 07:26-0500 Respiratory Rate 18 /min [facility] [place] [place] 06-10-2020 14:27-0400 BP Diastolic 100 mm[Hg] [facility] , [place] 06-10-2020 14:27-0400 BP Systolic 138 mm[Hg] [facility] [place] , [place] 06-10-2020 14:27-0400 Pulse (Heart Rate) 85 /min [facility] [place], [place] 06-10-2020 14:27-0400 Pulse Oximetry 99 % [facility] , [place] 06-10-2020 14:27-0400 Respiratory Rate 14 /min [facility] [place] 06-10-2020 13:40-0400 BMI (Body Mass Index) 25.09 kg/m2 [facility], [place] 06-10-2020 13:40-0400 Body Temperature 98.01 [degF] Hema Andrew [facility] [place] , [place] 06-10-2020 13:40-0400 Body weight 83.92 kg Hema Andrew [facility] , [place] 06-10-2020 13:40-0400 Height 182.9 cm Hema Andrew [facility] , [place] 06-08-2020 19:10-0400 Body Temperature 98.4 [degF] [facility] [place] 06-08-2020 19:10-0400 BP Diastolic 97 mm[Hg] [facility] [place] 06-08-2020 19:10-0400 BP Systolic 131 mm[Hg] [facility] [place] 06-08-2020 19:10-0400 Pulse (Heart Rate) 93 /min La Black [facility], [place] 06-08-2020 19:10-0400 Pulse Oximetry 99 % [facility] [place] 06-08-2020 19:10-0400 Respiratory Rate 16 /min [facility] [place] 12-20-2019 13:18-0400 BP Diastolic 84 mm[Hg] [facility] , [place] 12-20-2019 13:18-0400 BP Systolic 136 mm[Hg] [facility] [place] 12-20-2019 13:01-0400 BMI (Body Mass Index) 25.8 kg/m2 [facility] [place] 12-20-2019 13:01-0400 Body Temperature 97.81 [degF] [facility] 12-20-2019 13:01-0400 Body weight 83.92 kg [facility] [place] 12-20-2019 13:01-0400 Height 180.3 cm [facility] [place] 12-20-2019 13:01-0400 Pulse (Heart Rate) 100 /min [facility] [place] 12-20-2019 13:01-0400 Pulse Oximetry 100 % [facility] [place] 12-20-2019 13:01-0400 Respiratory Rate 17 /min [facility] [place] Encounters Encounter Date Encounter Type Care Provider Facility Start: 04-17-2025 End: 04-17-2025 ambulatory DACIA CAMEJO Facility:[facility] Start: 04-14-2025 End: 04-14-2025 Emergency department patient visit Kady Sahu MD Work Phone: [facility] Comment on above: Epigastric pain (Berna nelly Dx) Start: 03-20-2025 End: 03-20-2025 Telephone encounter Harriet Rivera MD Work Phone: [facility] Comment on above: Patient Question Start: 03-20-2025 End: 03-20-2025 Emergency department patient visit Wagner Cifuentes DO Work Phone: [facility] Comment on above: Abdominal pain, epig astric (Primary Dx); Nausea and vomiting, unspecified vomiting type Start: 03-19-2025 End: 03-20-2025 Telephone encounter Harriet Rivera MD Work Phone: [facility] Start: 03-15-2025 End: 03-15-2025 Emergency department patient visit YOLY REY DO [facility] Start: 03-05-2025 End: 03-05-2025 Patient encounter procedure Harriet Rivera MD Work Phone: [facility] Comment on above: Gastroesophageal ref lux disease with esophagitis without hemorrhage (Primary Dx); Hiatal hernia; Esophageal spasm; Tobacco use; Polysubstance abuse (HCC); Bipolar affective disorder, remission status unspecified (HCC) Start: 03-05-2025 End: 03-05-2025 ambulatory HARRIET RIVERA Facility:[facility] Start: 02-12-2025 End: 02-12-2025 Telephone encounter Harriet Rivera MD Work Phone: [facility] Comment on above: Appointment (Needs f ollow up appointment) Start: 02-12-2025 ambulatory HARRIET RIVERA Facility: [facility] Start: 02-10-2025 End: 02-10-2025 Emergency department patient visit DACIA CAMEJO Facility:[facility] Start: 02-10-2025 ambulatory HARRIET RIVERA Facility: [facility] Start: 02-10-2025 End: 02-10-2025 Subsequent hospital visit by physician Gi/Gu [facility] Comment on above: Gastroesophageal ref lux disease, unspecified whether esophagitis present [K21.9] Start: 02-09-2025 End: 02-09-2025 Emergency department patient visit Jennifer Mathur DITCHING MACHINE ENGINEER-C Work Phone: -Emergency Department Work Phone: Start: 02-03-2025 End: 02-03-2025 Telephone encounter Harriet Rivera MD Work Phone: [facility] Comment on above: Patient Question Start: 01-23-2025 End: 01-23-2025 Telephone encounter Harriet Rivera MD Work Phone: [facility] Comment on above: Follow Up Start: 01-23-2025 Encounter for other preprocedural examination HARRIET RIVERA [facility] Start: 01-23-2025 End: 01-23-2025 Preprocedural examination done Harriet Rivera MD Work Phone: [facility] Start: 01-23-2025 ambulatory HARRIET RIVERA Facility: [facility] Start: 01-23-2025 End: 01-23-2025 Subsequent hospital visit by physician Harriet Rivera MD Work Phone: [facility] Comment on above: Gastroesophageal ref lux disease, unspecified whether esophagitis present [K21.9] Start: 01-09-2025 End: 01-13-2025 Telephone encounter Harriet Rivera MD Work Phone: [facility] Start: 01-01-2025 End: 01-09-2025 E-mail encounter from caregiver [facility] Provider [facility] Start: 01-01-2025 End: 01-09-2025 Follow-up encounter [facility] Provider [facility] Comment on above: Updated Follow Up Da te/Time Start: 12-27-2024 End: 12-28-2024 Emergency department patient visit Jennifer OTTOC Work Phone: -Emergency Department Work Phone: Start: 12-24-2024 End: 12-24-2024 Emergency department patient visit CATALINA DELAROSA DO Facility:[facility] Start: 2024 End: 2024 Telephone encounter Harriet Rivera MD Work Phone: [facility] Comment on above: Returning Patient's Call; Patient Question Start: 11-17-2024 End: 11-17-2024 Telephone encounter Harriet Rivera MD Work Phone: [facility] Comment on above: Patient Question; Pa tient Update Start: 11-12-2024 ambulatory HARRIET RIVERA Facility: [facility] Start: 11-12-2024 End: 11-12-2024 Subsequent hospital visit by physician [facility] Work Phone: [facility] Comment on above: Nausea [R11.0] Start: 10-23-2024 End: 10-23-2024 Patient encounter procedure Harriet Rivera MD Work Phone: [facility] Comment on above: Gastroesophageal ref lux disease, unspecified whether esophagitis present (Primary Dx); Nausea; Tobacco use disorder; Polysubstance abuse (HCC); Bipolar affective disorder, remission status unspecified (HCC) Start: 10-23-2024 End: 10-23-2024 ambulatory HARRIET RIVERA Facility:[facility] Start: 10-23-2024 End: 10-23-2024 Telephone encounter Harriet Rivera MD Work Phone: [facility] Comment on above: Appointment (EGD BRA VO MANO) Start: 10-13-2024 End: 10-13-2024 Emergency department patient visit GARRETT CANO MD [facility] Start: 01-31-2025 Encounter for other preprocedural examination Sancho Calabretta [facility] Start: 09-22-2024 End: 09-22-2024 Patient encounter procedure Leisa Forrest PA-C -[facility] Work Phone: Start: 09-22-2024 End: 09-22-2024 ambulatory Leisa WATERMAN Facility:[facility] Start: 09-17-2024 End: 09-17-2024 Emergency department patient visit Dr. Luther San MD -Emergency Department Work Phone: Start: 09-15-2024 ambulatory [facility] Fa cility:[facility] Start: 09-15-2024 Non-patient / Non-visit Dr. Amy Rodriguez MD -[facility] Start: 09-15-2024 End: 09-15-2024 Admission to same day surgery center Dr. Sancho Rodriguez MD -[facility] Start: 09-15-2024 End: 09-15-2024 ambulatory [facility] Facility:[facility] Start: 09-02-2024 End: 09-02-2024 ambulatory [facility] Start: 09-02-2024 End: 09-02-2024 Non-patient / Non-visit Dr. Gabriel Arreola MD -[facility] Work Phone: Start: 08-15-2024 End: 08-15-2024 ambulatory [facility] Start: 08-05-2024 End: 08-05-2024 ambulatory [facility] Start: 07-22-2024 ambulatory [facility] Start: 07-22-2024 End: 07-22-2024 ambulatory [facility] Facility:[facility] Start: 07-17-2024 End: 07-17-2024 ambulatory DACIA CAMEJO Facility:[facility] Start: 07-17-2024 End: 07-17-2024 Patient encounter procedure Alfred Mckeon APRN.CNP Work Phone: [facility] Comment on above: Sinobronchitis (Prim nallely Dx); Exposure to pneumonia; History of COPD Start: 07-11-2024 ambulatory [facility] Start: 06-10-2024 End: 06-10-2024 ambulatory [facility] Start: 05-21-2024 End: 05-21-2024 ambulatory [facility] Start: 03-14-2024 End: 03-14-2024 Emergency department patient visit DACIA CAMEJO Facility:[id number] Start: 03-11-2024 End: 03-11-2024 Patient encounter procedure Celi Keane PA-C Work Phone: [facility] Comment on above: Chest tightness (Berna nelly Dx) Start: 03-11-2024 End: 03-11-2024 ambulatory CELI KEANE Facility:[id number] Start: 10-24-2023 End: 10-25-2023 Emergency department patient visit [facility] Work Phone: Start: 10-17-2023 End: 10-17-2023 Emergency department patient visit [facility] Work Phone: Start: 10-09-2023 End: 10-09-2023 Emergency department patient visit RUBEN JOVEL MD Facility: Start: 10-09-2023 End: 10-09-2023 Emergency department patient visit RUBEN JOVEL MD [facility] Start: 06-10-2023 ambulatory Obdulia Patel RN NU [facility] [employer]CHIT[employer] Comment on above: Vomiting Start: 06-10-2023 Telephone encounter Araceli Toth APRN.CNP Work Phone: [facility] Comment on above: Results Start: 06-09-2023 End: 06-09-2023 Patient encounter procedure Adolfo Zepeda MD Work Phone: [facility] Comment on above: Influenza-like illne ss (Primary Dx); Acute non-recurrent sinusitis, unspecified location Start: 05-26-2023 End: 05-26-2023 [facility] Start: 05-05-2023 End: 05-05-2023 Emergency department patient visit [facility] Work Phone: Start: 03-18-2023 End: 03-19-2023 Emergency department patient visit JORDYN COFFMAN Facility:B Start: 03-18-2023 End: 03-18-2023 Emergency department patient visit JORDYN COFFMAN MD [facility] Start: 01-08-2023 End: 01-08-2023 Emergency department patient visit [facility] Start: 07-12-2022 End: 07-12-2022 Emergency department patient visit DONAVAN MARTI [facility] Start: 06-24-2022 End: 06-24-2022 Emergency department patient visit UNKNOWN PROVIDER [facility] Start: 06-24-2022 End: 06-24-2022 Emergency department patient visit Seng Glover MD Work Phone: [facility] Comment on above: Pleurisy (Primary Dx ) Start: 04-01-2022 End: 04-01-2022 Emergency department patient visit [facility] Start: 09-25-2020 End: 09-25-2020 Emergency department patient visit Myah Merida Work Phone: [facility] Comment on above: Cellulitis of right upper extremity (Primary Dx) Start: 08-02-2020 End: 08-02-2020 Emergency department [facility] Comment on above: Forearm sprain, righ t, initial encounter (Primary Dx); Elbow sprain, right, initial encounter Start: 06-10-2020 End: 06-10-2020 Emergency department patient visit [facility]ema Andrew [facility] Comment on above: Infected superficial injury of right hand, initial encounter (Primary Dx) Start: 06-08-2020 End: 06-08-2020 Emergency department patient visit La Black Work Phone: [facility] Comment on above: Contusion of right h and including fingers, initial encounter (Primary Dx) Start: 12-20-2019 End: 12-20-2019 Emergency department patient visit Seng Glover Work Phone: [facility] Comment on above: Pain, dental (Primar y Dx); Dental abscess; Dental caries Start: 11-22-2018 Patient encounter procedure DI DANGELO Facility:[facility] Start: 05-06-2018 Patient encounter procedure DI DANGELO Facility:[facility] Start: 04-01-2018 Patient encounter procedure DI DANGELO Facility:[facility] Start: 03-29-2018 Patient encounter procedure DI DANGELO Facility:[facility] Start: 03-11-2018 End: 03-11-2018 Patient encounter procedure DI TIM Facility:[facility] Start: 03-01-2018 End: 03-01-2018 Patient encounter procedure DI TIM Facility:[facility] Start: 02-18-2018 End: 02-19-2018 Evaluation and management of inpatient IMCA Facility:[facility] Procedures Date Procedure Procedure Detail Performing Clinician Start: 04-14-2025 Ct thorax w/contrast material Kady Sahu MD Work Phone: Start: 04-14-2025 End: 04-14-2025 Comprehensive metabolic panel Kady Sahu MD Work Phone: Start: 04-14-2025 Troponin I.cardiac p benjamin - Serum or Plasma by High sensitivity method Kady Sahu MD Work Phone: Start: 03-20-2025 Comprehensive metabo lic panel Wagner Cifuentes DO Work Phone: Start: 02-10-2025 Antibody screen DACIA GARCIA Comment on above: Order Comment: Speci men Type: BLOOD SPECIMENOrdering Facility: [facility] Address: [address] [place] [address] Performed By: #### T SCR ####KIRBY BLOOD BANKCLIA [id number] [place] [address] [place] Start: 02-10-2025 Radiologic exam esop hagus single contrast study Harriet Rivera MD Work Phone: Start: 02-09-2025 Plain X-ray of shoulder Jennifer Mathur NP-C Work Phone: Start: 01-23-2025 Esophagoscp rig león soral hypopharynx crv esoph Harriet Rivera MD Work Phone: Start: 12-27-2024 CT of head without contrast Jennifer Mathur DITCHING MACHINE ENGINEER-C Work Phone: Start: 12-27-2024 D-dimer assay, quantitative Jennifer Mathur DITCHING MACHINE ENGINEER-C Work Phone: Comment on above: NORMAL D-Dimer level (<0.50) indicates no DVT or PE. Start: 12-27-2024 Estimated creatinine clearance Jennifer Mathur NP-C Work Phone: Start: 11-12-2024 Gastric emptying srinivasa ging study Harriet Rivera MD Work Phone: Start: 09-17-2024 Computed tomography of abdomen and pelvis with intravenous contrast Jennifer Mathur NP-C Work Phone: Start: 10-17-2023 Radiography of thora cic spine Start: 05-26-2023 Plain chest X-ray Start: 05-26-2023 SARS-CoV-2 & FLU Ant igen (Rapid) Start: 05-05-2023 Streptococcus pyogen es antigen assay Start: 06-24-2022 Radiologic exam ches t 2 views Kyra Nguyen MD Work Phone: Start: 06-24-2022 Assay of troponin quantitative Kyra Nguyen MD Work Phone: Start: 06-24-2022 COVID-19, FLU A/B, A ND RSV COMBO Kyra Nguyen MD Work Phone: Start: 06-24-2022 Ecg routine ecg w/le ast 12 lds w/i&r Kyra Nguyen MD Work Phone: Start: 04-01-2022 Radiography of ankle Start: 08-02-2020 Radex elbow complete minimum 3 views Shaunna Spauldingumilli Work Phone: Start: 08-02-2020 Radex forearm 2 views V liu Adusumilli Work Phone: Start: 06-10-2020 Basic metabolic pane l calcium total Hema Andrew Work Phone: Start: 06-10-2020 Blood count complete auto&auto difrntl wbc Hema Andrew Work Phone: Start: 06-10-2020 C-reactive protein Aust in Romero Andrew Work Phone: Start: 06-10-2020 Sedimentation rate r bc automated Hema Andrew Work Phone: Start: 06-08-2020 Radex hand minimum 3 views La Wongmiya Work Phone: Start: 02-18-2018 Antibody screen DI TIM Comment on above: Performed By: #### T &S #### [place] [address] H/O: surgery Hx of hand surgery Jennifer AMBROSIO Work Phone: Comment on above: LEFT, LACERATION FRO M BROKEN JAR Plan of Treatment Date Care Activity Detail Author Start: 2040 Zoster Vaccines (1 of 2) Zoster Vaccines (1 of 2) [facility] Start: 05-11-2025 Influenza vaccination [facility] Start: 03-05-2025 End: 06-04-2025 NICOTINE & METAB, UR NICOTINE & METAB, UR Lab Routine Tobacco use Expected: 03/05/2025, Expires: 06/04/2025 [facility] Work Phone: Comment on above: Expected: 03/05/2025, Expires: Start: 03-05-2025 End: 03-05-2025 Patient encounter procedure 03/05/2025 11:15 AM EDT Office Visit [facility] [address] [place] [address] Harriet Rivera MD [facility] [address] [place] [address] results [facility] Comment on above: results Start: 02-12-2025 End: 02-12-2025 Patient encounter procedure [facility] Comment on above: f/u-GES, esophagram, EGD with fuentes and mano HBC-f/u-GES, esophag stevan, EGD with fuentes and mano Start: 02-10-2025 End: 02-10-2025 Patient encounter procedure 02/10/2025 2:30 PM EDT Appointment [facility] [address] [place] [address] Gastroesophageal reflux disease, unspecified whether esophagitis present [K21.9] [facility] Comment on above: Gastroesophageal reflux disease, unspeci fied whether esophagitis present [K21.9] Start: 01-23-2025 End: 01-23-2025 Patient encounter procedure 01/23/2025 10:00 AM EDT Appointment [facility] [address] [facility] [place] [place] [address] Harriet Rivera MD [facility] [address] [place] [address] [facility] Start: 01-23-2025 End: 01-23-2025 Admission to same day surgery center 01/23/2025 9:00 AM EDT - 01/23/2025 10:00 AM EDT Surgery [facility] [address] [facility] [place] [address] Harriet Rivera MD 1 [facility] [address] [place] [address] ESOPHAGEAL MANOMETRY [facility] Comment on above: ESOPHAGEAL MANOMETRY Start: 01-23-2025 End: 01-23-2025 Esophageal motility study w/interp&rpt [facility] Start: 01-23-2025 Subsequent hospital visit by physician 01/23/2025 9:00 AM EDT Hospital Encounter [facility] [place] [address] Harriet Rivera MD 1 [facility] [address] [place], [place] [id number] Gastroesophageal reflux disease, unspecified whether esophagitis present [K21.9] [facility] EST[facility] Comment on above: Gastroesophageal reflux disease, unspeci fied whether esophagitis present [K21.9] Start: 12-28-2024 [facility] Start: 12-27-2024 [facility] Start: 12-25-2024 End: 12-25-2024 Patient encounter procedure 12/25/2024 3:00 PM EDT Office Visit [facility] [address] [place] [address] Harriet Rivera MD [address] [address] f/u-GES, esophagram, EGD with fuentes and mano [facility] Comment on above: f/u-GES, esophagram, EGD with fuentes and mano Start: 12-15-2024 End: 10-23-2025 EGD - THERAPEUTIC, EUS, OR TUBE INTERVENTIONS EGD - THERAPEUTIC, EUS, OR TUBE INTERVENTIONS Endoscopy Routine Gastroesophageal reflux disease, unspecified whether esophagitis present Expected: 12/15/2024, Expires: 10/23/2025 [facility] Comment on above: Expected: 12/15/2024, Expires: Start: 12-12-2024 Subsequent hospital visit by physician 12/12/2024 Hospital Encounter [facility] 1 [place] [address] Harriet Rivera MD [address] [id number] Gastroesophageal reflux disease, unspecified whether esophagitis present [K21.9] [facility]LLIS ESTRELLA Comment on above: Gastroesophageal reflux disease, unspeci fied whether esophagitis present [K21.9] Start: 12-05-2024 End: 12-05-2024 Patient encounter procedure 12/05/2024 10:00 AM EDT Appointment [facility] [address] [place] [address] Gastroesophageal reflux disease, unspecified whether esophagitis present [K21.9] [facility] Comment on above: Gastroesophageal reflux disease, unspeci fied whether esophagitis present [K21.9] Start: 11-28-2024 End: 11-28-2024 Patient encounter procedure 11/28/2024 9:00 AM EDT Appointment [facility] 1 [place] [address] Hariret Rivera MD 1 [facility] [address] [place], [place] [id number] [facility] Start: 11-28-2024 End: 11-28-2024 Admission to same day surgery center 11/28/2024 8:00 AM EDT - 11/28/2024 9:00 AM EDT Surgery [facility] 1 [place] [address] Harriet Rivera MD [address] [id number] ESOPHAGEAL MANOMETRY [facility] Comment on above: ESOPHAGEAL MANOMETRY Start: 11-28-2024 End: 11-28-2024 Esophageal motility study w/interp&rpt ESOPHAGEAL MANOMETRY Gastroesophageal reflux disease, unspecified whether esophagitis present 11/28/2024 8:00 AM EDT [facility] Start: 11-28-2024 Subsequent hospital visit by physician 11/28/2024 8:00 AM EDT Hospital Encounter [facility] 1 [place] [address] Harriet Rivera MD [address] [id number] Gastroesophageal reflux disease, unspecified whether esophagitis present [K21.9] [facility] Comment on above: Gastroesophageal reflux disease, unspeci fied whether esophagitis present [K21.9] Start: 11-12-2024 End: 11-12-2024 Patient encounter procedure 11/12/2024 8:00 AM EST Appointment [facility] 1 [place] [address] Nausea [R11.0] [facility] Comment on above: Nausea [R11.0] Start: 10-23-2024 End: 01-22-2025 NICOTINE & METAB, UR NICOTINE & METAB, UR Lab Routine Tobacco use disorder Expected: 10/23/2024, Expires: 01/22/2025 [facility] Comment on above: Expected: 10/23/2024, Expires: Start: 09-17-2024 [facility] Start: 09-15-2024 Anes intraperitoneal upper abdomen w/laps nos ANES IPER UPR ABD NOS [facility] Start: 09-15-2024 Laps abd prtm&omentum dx w/wo spec br/wa spx DIAG LAPARO SEPARATE PROC [facility] Start: 09-15-2024 Patient discharge [facility] Start: 05-11-2024 Covid-19 Vaccine ( season) Covid-19 Vaccine ( season) [facility] Start: 05-11-2024 Influenza vaccination Influenza Vaccine (#1) [facility] Start: 10-24-2023 [facility] Start: 10-24-2023 Suicide precautions [facility] Start: 05-11-2023 Covid-19 Vaccine ( season) Covid-19 Vaccine ( season) [facility] Start: 05-11-2023 Influenza vaccination Influenza Vaccine (#1) [facility] Start: 05-05-2023 Streptococcus pyogenes antigen assay Group A Streptococcus Rapid Screen [facility] Start: 01-08-2023 [facility] Start: 04-10-2022 Influenza vaccination Flu vaccine (#1) [facility] Start: 06-14-2020 End: 06-14-2020 Office Visit 06/14/2020 Office Visit Family Medicine Bess Muniz, NUT ROASTER - ANNEALING FURNACE TENDER [address] [place] [address] [phone] [facility] Start: 05-11-2020 Influenza vaccination [facility] [place] Start: 2017 HPV Vaccines (1 - 3-dose standard series) HPV Vaccines (1 - 3-dose standard series) [facility] Start: 2012 DTaP/Tdap/Td Vaccines (1 - Tdap) DTaP/Tdap/Td Vaccines (1 - Tdap) [facility] Start: 2009 DTaP/Tdap/Td vaccine (1 - Tdap) DTaP/Tdap/Td vaccine (1 - Tdap) [facility] Start: 2009 Hepatitis B Vaccine (1 of 3 - 19+ 3-dose series) Hepatitis B Vaccine (1 of 3 - 19+ 3-dose series) [facility] Start: 2009 Hepatitis B Vaccines (1 of 3 - 19+ 3-dose series) Hepatitis B Vaccines (1 of 3 - 19+ 3-dose series) [facility] Start: 2009 Pneumococcal vaccination Pneumococcal Vaccine (1 of 2 - PCV) [facility] Start: 2009 Urine microalbumin profile DTaP,Tdap,Td Vaccine (1 - Tdap) [facility] Start: 2008 Annual PCP Team Chronic Disease Visit Annual PCP Team Chronic Disease Visit [facility] Start: 2008 Anxiety Screening Anxiety Screening [facility] Start: 2008 Hepatitis C screening [facility] Start: 2008 Hepatitis C Screening Hepatitis C Screening [facility] Start: 2008 HIV Screening HIV Screening [facility] Start: 2008 HIV screening HIV Screening [facility] Start: 2005 HIV screen HIV screen [place], [place] Start: 2005 HIV screening HIV screen [facility] Start: 11-19-2003 Varicella vaccination Varicella Vaccines (1 of 2 - 13+ 2-dose series) [facility] Start: 2002 Depression Screen Depression Screen [facility] Start: 1996 Pneumococcal 0-64 years Vaccine (1 - PCV) Pneumococcal 0-64 years Vaccine (1 - PCV) [facility] Start: 1996 Pneumococcal 0-64 years Vaccine (1 of 1 - PPSV23) Pneumococcal 0-64 years Vaccine (1 of 1 - PPSV23) [place] Start: 1996 Pneumococcal vaccination [facility] Start: 11-19-1991 MMR Vaccines (1 of 1 - Standard series) MMR Vaccines (1 of 1 - Standard series) [facility] Start: 11-19-1991 Varicella vaccine (1 of 2 - 2-dose childhood series) Varicella vaccine (1 of 2 - 2-dose childhood series) [facility] Start: 05-21-1991 COVID-19 Vaccine (#1) COVID-19 Vaccine (#1) [facility] Start: 1990 Hepatitis B Vaccine (1 of 3 - 3-dose series) Hepatitis B Vaccine (1 of 3 - 3-dose series) [facility] Start: 1990 Hepatitis C screening Hepatitis C screen [place], [place] Start: 1990 HIV screening HIV Screening [facility] Start: 1990 Lipid panel Lipid Panel [facility] Start: 1990 Yearly Adult Physical Yearly Adult Physical [facility] End: 04-14-2025 ECG 12 lead ECG 12 lead ECG STAT Once for 1 Occurrences starting 04/14/2025 until 04/14/2025 [facility] Service Area Work Phone: Comment on above: Once for 1 Occurrences starting 04/14/20 until 04/14/2025 ECG COMPLETE ECG COMPLETE ECG Routine Chest tightness Ordered: 03/11/2024 [facility] Work Phone: Comment on above: Ordered: 03/11/2024 EKG 12 Lead EKG 12 Lead ECG STAT 06/24/2022 9:14 AM EDT [facility] Work Phone: Electrocardiographic procedure [facility] Esophageal motility study w/interp&rpt ESOPHAGEAL MANOMETRY Gastroesophageal reflux disease, unspecified whether esophagitis present [facility] Influenza virus A an d B RNA and SARS-CoV-2 (COVID-19) N gene panel - Respiratory specimen by TRINIDAD with probe detection COVID & INFLUENZA A/B NAAT, ROUTINE Microbiology Routine Influenza-like illness Acute non-recurrent sinusitis, unspecified location 06/09/2023 2:41 PM EDT [facility] Work Phone: End: 10-23-2025 Manometry Study observation Narrative MANOMETRY ESOPHAGEAL Endoscopy Routine Gastroesophageal reflux disease, unspecified whether esophagitis present 1 Occurrences starting 10/23/2024 until 10/23/2025 [facility] Comment on above: 1 Occurrences starting 10/23/2024 until 10/23/2025 End: 11-22-2025 NM Stomach Views for gastric emptying solid phase W radionuclide PO NM GASTRIC EMPTYING SOLID Radiology Routine Nausea 1 Occurrences starting 10/23/2024 until 11/22/2025 [facility] Work Phone: Comment on above: 1 Occurrences starting 10/23/2024 until 11/22/2025 Patient Education [facility] Work Phone: Patient referral [facility] Work Phone: Tissue Pathology bio psy report [facility] Work Phone: Comment on above: Release Upon Ordering for 1 Occurrences starting 01/23/2025, 1 completed End: 11-22-2025 XR Esophagus Views W contrast PO XR ESOPHAGRAM Radiology Routine Gastroesophageal reflux disease, unspecified whether esophagitis present 1 Occurrences starting 10/23/2024 until 11/22/2025 [facility] Comment on above: 1 Occurrences starting 10/23/2024 until 11/22/2025 End: 06-10-2020 XR HAND RIGHT (MIN 3 VIEWS) XR HAND RIGHT (MIN 3 VIEWS) Imaging STAT Once for 1 Occurrences starting 06/10/2020 until 06/10/2020 [place] Comment on above: Once for 1 Occurrences starting 06/10/20 20 until 06/10/2020 XR HAND RIGHT (MIN 3 VIEWS) XR H AND RIGHT (MIN 3 VIEWS) Imaging STAT 06/10/2020 2:58 PM EDT [place] Payers Date Payer Category Payer Miscellaneous or Other [id number] 2025 Unknown [id number] 2025 Unknown [id number] 2024 Self-pay [id number] 2023 Unknown 2023 Unknown [id number] 2022 Medicaid [id number] 2018 Unknown [id number] 2015 Medicaid [id number] 1990 Unknown [id number] 2.16.8 40.1.505248.3.579.2.278 1990 Unknown [id number] 2.16.8 40.1.649029.3.579.2.278 1990 Unknown [id number] 2.16.8 40.1.190334.3.579.2.278 1990 Unknown [id number] 2.16.8 40.1.731342.3.579.2.278 1990 Unknown [id number] 2.16.8 40.1.943586.3.579.2.278 1990 Unknown [id number] 2.16.8 40.1.506180.3.579.2.278 1990 Unknown [id number] 2.16.8 40.1.921104.3.579.2.278 1990 Unknown [id number] 2.16.8 40.1.526010.3.579.2.278 1990 Unknown [id number] 2.16. 840.1.183711.3.579.2.668 1990 Unknown [id number] 2.16.8 40.1.790142.3.579.2.627 1990 Unknown [id number] 2.16.8 40.1.498895.3.579.2.627 1990 Unknown [id number] 2.16. 840.1.229507.3.579.2.627 1990 Unknown [id number] 2.16.8 40.1.900402.3.579.2.627 1990 Unknown [id number] 2.16.8 40.1.898340.3.579.2.627 1990 Unknown [id number] 2.16.8 40.1.255907.3.579.2.1243 1990 Unknown [id number] 2.16.8 40.1.937933.3.579.2.1243 Unknown [id number] 2.16.8 40.1.545470.3.579.2.462 Unknown [id number] 2.16.8 40.1.481299.3.579.2.462 Unknown [id number] 2.16.8 40.1.612277.3.579.2.462 Unknown [id number] 2.16.8 40.1.668679.3.579.2.462 Unknown [id number] 2.16.8 40.1.971642.3.579.2.462 Unknown [id number] 2.16.8 40.1.758883.3.579.2.462 Unknown [id number] 2.16.8 40.1.010961.3.579.2.462 Unknown [id number] 2.16.8 40.1.961390.3.579.2.462 Unknown [id number] 2.16.8 40.1.154821.3.579.2.462 Unknown [id number] 2.16.8 40.1.071921.3.579.2.462 Unknown [id number] 2.16.8 40.1.605999.3.579.2.462 Unknown [id number] 2.16.8 40.1.049640.3.579.2.462 Unknown [id number] 2.16.8 40.1.047202.3.579.2.462 Unknown [id number] 2.16.8 40.1.361742.3.579.2.462 Unknown [id number] 2.16.8 40.1.132316.3.579.2.462 Social History Date Type Detail Facility Start: 12-20-2019 End: 01-23-2025 Tobacco smoking status NHIS Current every day smoker [facility] [place] [facility] Start: 12-20-2019 End: 08-18-2020 Cigarettes smoked current (pack per day) - Reported [facility] Start: 12-20-2019 End: 06-10-2020 Alcohol intake Current drinker of alcohol (finding) [facility] Start: 06-21-2016 Alcohol Comment occ [facility] Start: 1990 Sex Assigned At Not on file [place], [place] Exposure to SARS-CoV -2 (event) Unable to assess [place] Start: 03-04-2019 End: 06-08-2020 [facility] and exposure [facility] Start: 06-14-2022 End: 06-24-2022 Exposure to SARS-CoV-2 (event) Not sure [facility] Start: 04-01-2022 End: 10-24-2023 Tobacco smoking status NHIS Unknown if ever smoked [facility] Start: 08-04-2019 Spouse/ Significant Other [facility] Start: 1990 Sex Assigned At Male [facility] Sex Assigned At [facility] Start: 08-19-2015 None [facility] Start: 05-19-2015 Cigarettes [facility] Start: 06-09-2023 End: 07-17-2024 Tobacco use and exposure User of smokeless tobacco [facility] History of tobacco use Chews Tobacco [facility] Start: 06-09-2023 End: 03-05-2025 Alcohol intake Current non-drinker of alcohol (finding) [facility] Start: 08-18-2020 End: 06-09-2023 Tobacco use panel [facility] Start: 03-20-2025 Adult Depression Screening Assessment 6 [facility] Start: 06-09-2023 Tobacco Comment started smoking 17yo [facility] Start: 02-19-2018 Gender identity Identifies as male gender (finding) [facility] Start: 10-09-2023 Tobacco smoking status Heavy tobacco smoker (finding) [facility] Start: 01-07-2015 End: 12-28-2024 Sex Male (finding) [facility] Start: 10-23-2024 End: 01-23-2025 Tobacco use and exposure Former smokeless tobacco user [facility] Start: 09-18-2024 Sexual orientation Heterosexual (finding) [facility] Start: 12-27-2024 Tobacco smoking status NHIS Current Light tobacco smoker [facility] Start: 01-23-2025 Tobacco Comment started smoking 17yo Smokes 0.25 PPD since 11/2024Smoked 1-2 PPD x 17 years [facility] Start: 03-20-2025 Alcoholic beverage intake Ex-drinker (finding) [facility] Work Phone: Medical Equipment Procedure Code Equipment Code Equipment Origin al Text Equipment Identifier Dates Connector Axog[address] rd 3mm Porcine Extracellular Matrix 15mm Nerve Coaptation - [id number] Start: 02-19-[address] 3mm Porcine Extracellular Matrix 15mm Nerve Coaptation - [id number] Start: 02-19-2018 Comment on above: Description: soft ti ssue hand Connector Axogua rd 2mm Porcine Extracellular Matrix 15mm Nerve Coaptation - [id number] Start: 02-19-2018 Goals Date Patient Goal Desired Activity /State Functional Status Date Assessment Result Facility 04-14-2025 Esmeralda - suicide severity rating scale screener - recent [C-SSRS] [facility] Work Phone: 03-20-2025 Esmeralda - suicide severity rating scale screener - recent [C-SSRS] [facility] Work Phone: 10-13-2024 Functional Status Independent [facility] 10-09-2023 Functional Status Standard Safet y ID band on, Call device within reach, Bed in low position, Wheels locked, Upper/Half-Length side-rails up [facility] 02-19-2018 Are you deaf, or do you have serious difficulty hearing No 02/19/2018 9:15 PM Sami Alvarez, NAZ No [facility] 02-19-2018 Are you blind, or do you have serious difficulty seeing, even when wearing glasses No 02/19/2018 9:15 PM Sami Alvarez, NAZ No [facility] 02-19-2018 Do you have serious difficulty walking or climbing stairs No 02/19/2018 9:15 PM EDT Sami Joyner, NAZ No [facility] 02-19-2018 Do you have difficul ty dressing or bathing No 02/19/2018 9:15 PM EDT Sami Joyner, NAZ No [facility] 02-19-2018 Because of a physica l, mental, or emotional condition, do you have difficulty doing errands alone such as visiting a physician's office or shopping No 02/19/2018 9:15 PM EDT Sami Joyner RN No [facility] Mental Status Date Assessment Result Facility 12-27-2024 Cognitive function Level Of Cons ciousness Awake;Alert;Appropriate;Fol lows Commands [facility] Work Phone: 10-13-2024 Mental Status Oriented x 4 [facility] 09-15-2024 Cognitive function Level Of Cons ciousness Appropriate;Lethargic [facility] Work Phone: 09-15-2024 Cognitive function Voice/Name [facility] Work Phone: 10-09-2023 Mental Status Orientation Oriented x 4 [facility] 02-19-2018 Because of a physica l, mental, or emotional condition, do you have serious difficulty concentrating, remembering, or making decisions No 02/19/2018 9:15 PM EDT Sami Joyner, NAZ No [facility] Clinical Notes 06-24-2022 to 04-14-2025 Kady Sahu MD - 04/14/2025 7:54 PM Evelyn Sahu MD - 04/14/2025 7:54 PM EDTTelephone Encounter - Tex Hartman RN - 03/20/2025 2:48 PM EDT Note Date & Type Note Facility 04-14-2025 Physician Emergency department Note 34-year-old male presents from the snf for evaluation with severe epigastric pain. He has a known hiatal hernia. He was seen approximately 4 weeks ago for the same thing and it looks like he was started on Protonix and Carafate at that time. He is scheduled to have surgery to repair the hiatal hernia next week. Denies any nausea or vomiting. Review of Systems Physical Exam Vitals and nursing note reviewed. Constitutional: Appearance: He is not ill-appearing or toxic-appearing. HENT: Head: Normocephalic and atraumatic. Right Ear: Tympanic membrane normal. Left Ear: Tympanic membrane normal. Nose: Nose normal. Mouth/Throat: Mouth: Mucous membranes are moist. Pharynx: No oropharyngeal exudate or posterior oropharyngeal erythema. Eyes: Extraocular Movements: Extraocular movements intact. Conjunctiva/sclera: Conjunctivae normal. Pupils: Pupils are equal, round, and reactive to light. Cardiovascular: Rate and Rhythm: Normal rate and regular rhythm. Pulmonary: Effort: Pulmonary effort is normal. No respiratory distress. Breath sounds: Normal breath sounds. No wheezing, rhonchi or rales. Abdominal: General: There is no distension. Palpations: Abdomen is soft. There is no mass. Tenderness: There is no abdominal tenderness. There is no guarding. Musculoskeletal: General: No deformity. Normal range of motion. Cervical back: Neck supple. No tenderness. Skin: General: Skin is warm and dry. Neurological: General: No focal deficit present. Mental Status: He is alert and oriented to person, place, and time. Psychiatric: Mood and Affect: Mood normal. Labs Reviewed COMPREHENSIVE METABOLIC PANEL - Abnormal Result Value Glucose 107 (*) Sodium 138 Potassium 3.8 Chloride 103 Bicarbonate 29 Anion Gap 10 Urea Nitrogen 9 Creatinine 1.01 eGFR >90 Calcium 9.8 Albumin 4.8 Alkaline Phosphatase 75 Total Protein 7.0 AST 20 Bilirubin, Total 0.5 ALT 38 LIPASE - Normal Lipase 13 Narrative: Venipuncture immediately after or during the administration of Metamizole may lead to falsely low results. Testing should be performed immediately prior to Metamizole dosing. SERIAL TROPONIN-INITIAL - Normal Troponin I, High Sensitivity <3 Narrative: Less than 99th percentile of normal range cutoff- Female and children under 18 years old <14 ng/L; Male <21 ng/L: Negative Repeat testing should be performed if clinically indicated. Female and children under 18 years old 14-50 ng/L; Male 21-50 ng/L: Consistent with possible cardiac damage and possible increased clinical risk. Serial measurements may help to assess extent of myocardial damage. >50 ng/L: Consistent with cardiac damage, increased clinical risk and myocardial infarction. Serial measurements may help assess extent of myocardial damage. NOTE: Children less than 1 year old may have higher baseline troponin levels and results should be interpreted in conjunction with the overall clinical context. NOTE: Troponin I testing is performed using a different testing methodology at [facility] than at other [facility]. Direct result comparisons should only be made within the same method. SERIAL TROPONIN, 1 HOUR - Normal Troponin I, High Sensitivity 3 Narrative: Less than 99th percentile of normal range cutoff- Female and children under 18 years old <14 ng/L; Male <21 ng/L: Negative Repeat testing should be performed if clinically indicated. Female and children under 18 years old 14-50 ng/L; Male 21-50 ng/L: Consistent with possible cardiac damage and possible increased clinical risk. Serial measurements may help to assess extent of myocardial damage. >50 ng/L: Consistent with cardiac damage, increased clinical risk and myocardial infarction. Serial measurements may help assess extent of myocardial damage. NOTE: Children less than 1 year old may have higher baseline troponin levels and results should be interpreted in conjunction with the overall clinical context. NOTE: Troponin I testing is performed using a different testing methodology at [facility] than at other [facility]. Direct result comparisons should only be made within the same method. CBC WITH AUTO DIFFERENTIAL WBC 6.9 nRBC 0.0 RBC 5.69 Hemoglobin 16.1 Hematocrit 46.3 MCV 81 MCH 28.3 MCHC 34.8 RDW 12.4 Platelets 248 Neutrophils % 51.9 Immature Granulocytes %, Automated 0.4 Lymphocytes % 34.5 Monocytes % 9.9 Eosinophils % 2.3 Basophils % 1.0 Neutrophils Absolute 3.56 Immature Granulocytes Absolute, Automated 0.03 Lymphocytes Absolute 2.37 Monocytes Absolute 0.68 Eosinophils Absolute 0.16 Basophils Absolute 0.07 TROPONIN SERIES- (INITIAL, 1 HR) Narrative: The following orders were created for panel order Troponin I Series, High Sensitivity (0, 1 HR). Procedure Abnormality Status --------- ------ Troponin I, High Sensiti...[[id number]] Normal Final result Troponin, High Sensitivi...[[id number]] Normal Final result Please view results for these tests on the individual orders. CT chest abdomen pelvis w IV contrast Final Result Paraseptal emphysematous changes in the lung apices with dependent atelectatic changes bilaterally. No acute abnormality of the abdomen and pelvis. MACRO: None. Signed by: Julito Seymour 04/14/2025 9:52 PM Dictation workstation: [id number] Procedures Medical Decision Making 34-year-old male presents from the snf for evaluation with severe epigastric pain. He has a known hiatal hernia. He was seen approximately 4 weeks ago for the same thing and it looks like he was started on Protonix and Carafate at that time. He is scheduled to have surgery to repair the hiatal hernia next week. Denies any nausea or vomiting. Upon arrival IV access was obtained and a liter of normal saline was administered. Patient also received 40 mg IVP Pepcid, 80 mg IVP Protonix, 4 mg IVP morphine and 4 mg IVP Zofran. Patient CT scan of the chest abdomen pelvis is negative for acute findings. Laboratory studies unremarkable as well. Patient is doing better and he can be discharged back to the custody of the snf. DDx: Pancreatitis, gastritis, PUD, biliary colic, cholelithiasis Amount and/or Complexity of Data Reviewed ECG/medicine tests: independent interpretation performed. Details: Sinus rhythm rate of 74, narrow complex, normal axis, no ST elevation or depression, no ectopy. Diagnoses as of 04/14/252199 Epigastric pain Kady Sahu MD 04/14/252199 [facility] Work Phone: 04-14-2025 Emergency department Note 34-year-old male presents from the snf for evaluation with severe epigastric pain. He has a known hiatal hernia. He was seen approximately 4 weeks ago for the same thing and it looks like he was started on Protonix and Carafate at that time. He is scheduled to have surgery to repair the hiatal hernia next week. Denies any nausea or vomiting. Review of Systems Physical Exam Vitals and nursing note reviewed. Constitutional: Appearance: He is not ill-appearing or toxic-appearing. HENT: Head: Normocephalic and atraumatic. Right Ear: Tympanic membrane normal. Left Ear: Tympanic membrane normal. Nose: Nose normal. Mouth/Throat: Mouth: Mucous membranes are moist. Pharynx: No oropharyngeal exudate or posterior oropharyngeal erythema. Eyes: Extraocular Movements: Extraocular movements intact. Conjunctiva/sclera: Conjunctivae normal. Pupils: Pupils are equal, round, and reactive to light. Cardiovascular: Rate and Rhythm: Normal rate and regular rhythm. Pulmonary: Effort: Pulmonary effort is normal. No respiratory distress. Breath sounds: Normal breath sounds. No wheezing, rhonchi or rales. Abdominal: General: There is no distension. Palpations: Abdomen is soft. There is no mass. Tenderness: There is no abdominal tenderness. There is no guarding. Musculoskeletal: General: No deformity. Normal range of motion. Cervical back: Neck supple. No tenderness. Skin: General: Skin is warm and dry. Neurological: General: No focal deficit present. Mental Status: He is alert and oriented to person, place, and time. Psychiatric: Mood and Affect: Mood normal. Labs Reviewed COMPREHENSIVE METABOLIC PANEL - Abnormal Result Value Glucose 107 (*) Sodium 138 Potassium 3.8 Chloride 103 Bicarbonate 29 Anion Gap 10 Urea Nitrogen 9 Creatinine 1.01 eGFR >90 Calcium 9.8 Albumin 4.8 Alkaline Phosphatase 75 Total Protein 7.0 AST 20 Bilirubin, Total 0.5 ALT 38 LIPASE - Normal Lipase 13 Narrative: Venipuncture immediately after or during the administration of Metamizole may lead to falsely low results. Testing should be performed immediately prior to Metamizole dosing. SERIAL TROPONIN-INITIAL - Normal Troponin I, High Sensitivity <3 Narrative: Less than 99th percentile of normal range cutoff- Female and children under 18 years old <14 ng/L; Male <21 ng/L: Negative Repeat testing should be performed if clinically indicated. Female and children under 18 years old 14-50 ng/L; Male 21-50 ng/L: Consistent with possible cardiac damage and possible increased clinical risk. Serial measurements may help to assess extent of myocardial damage. >50 ng/L: Consistent with cardiac damage, increased clinical risk and myocardial infarction. Serial measurements may help assess extent of myocardial damage. NOTE: Children less than 1 year old may have higher baseline troponin levels and results should be interpreted in conjunction with the overall clinical context. NOTE: Troponin I testing is performed using a different testing methodology at [facility] than at other [facility]. Direct result comparisons should only be made within the same method. SERIAL TROPONIN, 1 HOUR - Normal Troponin I, High Sensitivity 3 Narrative: Less than 99th percentile of normal range cutoff- Female and children under 18 years old <14 ng/L; Male <21 ng/L: Negative Repeat testing should be performed if clinically indicated. Female and children under 18 years old 14-50 ng/L; Male 21-50 ng/L: Consistent with possible cardiac damage and possible increased clinical risk. Serial measurements may help to assess extent of myocardial damage. >50 ng/L: Consistent with cardiac damage, increased clinical risk and myocardial infarction. Serial measurements may help assess extent of myocardial damage. NOTE: Children less than 1 year old may have higher baseline troponin levels and results should be interpreted in conjunction with the overall clinical context. NOTE: Troponin I testing is performed using a different testing methodology at [facility] than at other [facility]. Direct result comparisons should only be made within the same method. CBC WITH AUTO DIFFERENTIAL WBC 6.9 nRBC 0.0 RBC 5.69 Hemoglobin 16.1 Hematocrit 46.3 MCV 81 MCH 28.3 MCHC 34.8 RDW 12.4 Platelets 248 Neutrophils % 51.9 Immature Granulocytes %, Automated 0.4 Lymphocytes % 34.5 Monocytes % 9.9 Eosinophils % 2.3 Basophils % 1.0 Neutrophils Absolute 3.56 Immature Granulocytes Absolute, Automated 0.03 Lymphocytes Absolute 2.37 Monocytes Absolute 0.68 Eosinophils Absolute 0.16 Basophils Absolute 0.07 TROPONIN SERIES- (INITIAL, 1 HR) Narrative: The following orders were created for panel order Troponin I Series, High Sensitivity (0, 1 HR). Procedure Abnormality Status --------- ------ Troponin I, High Sensiti...[[id number]] Normal Final result Troponin, High Sensitivi...[[id number]] Normal Final result Please view results for these tests on the individual orders. CT chest abdomen pelvis w IV contrast Final Result Paraseptal emphysematous changes in the lung apices with dependent atelectatic changes bilaterally. No acute abnormality of the abdomen and pelvis. MACRO: None. Signed by: Julito Ahuja 04/14/2025 9:52 PM Dictation workstation: [id number] Procedures Medical Decision Making 34-year-old male presents from the snf for evaluation with severe epigastric pain. He has a known hiatal hernia. He was seen approximately 4 weeks ago for the same thing and it looks like he was started on Protonix and Carafate at that time. He is scheduled to have surgery to repair the hiatal hernia next week. Denies any nausea or vomiting. Upon arrival IV access was obtained and a liter of normal saline was administered. Patient also received 40 mg IVP Pepcid, 80 mg IVP Protonix, 4 mg IVP morphine and 4 mg IVP Zofran. Patient CT scan of the chest abdomen pelvis is negative for acute findings. Laboratory studies unremarkable as well. Patient is doing better and he can be discharged back to the custody of the snf. DDx: Pancreatitis, gastritis, PUD, biliary colic, cholelithiasis Amount and/or Complexity of Data Reviewed ECG/medicine tests: independent interpretation performed. Details: Sinus rhythm rate of 74, narrow complex, normal axis, no ST elevation or depression, no ectopy. Diagnoses as of 04/14/252199 Epigastric pain Kady Sahu MD 04/14/252199 documented in this encounter [facility] Work Phone: 03-20-2025 Telephone encounter Note Pt's jim Rivera called again to insist that Dr. Rivera or Dr. Rivera's nurse write a medical release form to [facility] for pt. Advised (multiple times) that we do not write medical release forms without speaking with the snf and/or evaluation of the patient. Assured her that the snf has their protocols for pt's( inmates) who need medical attention/evaluation. Advised her that her and his mother's multiple requests have been noted and will be sent to Dr. Rivera and Bipin Wei, NAZ. Pt's jim was quite upset and states I'll be looking into you guys then, because you are supposed to write a note, and that is what we were told. She hung up the phone. She has since called back multiple times. Tex Hartman RN, BSN Bariatric Rn Lactation [facility] 03-20-2025 Miscellaneous Notes Pt's jim Rivera called again to insist that Dr. Rivera or Dr. Rivera's nurse write a medical release form to [facility] for pt. Advised (multiple times) that we do not write medical release forms without speaking with the snf and/or evaluation of the patient. Assured her that the snf has their protocols for pt's( inmates) who need medical attention/evaluation. Advised her that her and his mother's multiple requests have been noted and will be sent to Dr. Rivera and Bipin Wei, NAZ. Pt's jim was quite upset and states I'll be looking into you guys then, because you are supposed to write a note, and that is what we were told. She hung up the phone. She has since called back multiple times. Tex Hartman RN, BSN Bariatric Rn Lactation Pt's mother called post op line in regards to son who is currently incarcerated in [facility]. She is not listed in his chart as a contact or on his HIPAA contact list. Advised her of this, and let her know that I could take her message, but could not give her medical information. She reports that he is having pain, so the snf took him to the hospital for evaluation, then was sent back to snf. Per the mother, the nurse at the snf does not want him there, because they think he is medically unstable. The mother states the snf is requesting a form sent over for a medical release for her son. Advised her that we did not evaluate him, but if the hospital that evaluated him deemed him medically unstable, they would have to write a medical release form. Advised her as well, that the snf would contact us if they needed a form for his medical release. She then said our office has written notes for him to stay out of snf before and we need to write one for him to leave. She states he needs to see his doctor. Advised her that the snf makes the decision to take him to get medically treated, which they have done and they have not contacted our office. Advised her that I will forward her message to Dr. Rivera and Bipin Wei, NAZ. She insists that we do not need to speak with the snf, because they don't do things like [facility]. She states, well you just don't know [facility], you just send them the form. Advised that is not our policy. Pt's mother has no further questions. Tex Hartman RN, BSN Bariatric Rn Lactation Patient's significant other called and left a message yesterday about Amado. She returned my call this morning. [facility] Yoly said, He is having so much pain from his ulcer and the snf refuses to give him his medications. He isn't able to eat and he is supposed to be on a liquid diet, you know those protein drinks and they won't give it to him. He can't even keep down water. I told Yoly if he cannot keep liquids down he needs to go to the ER and the snf has a protocol for that. Yoly states they refuse to take him. That snf is being investigated for not giving people their medications from the doctor. Can't you call the snf? I've called them, his mother has called them and cussed them out. They are not doing anything. I told Yoly this is beyond our capabilities and recommended that she and Amado's mom reach out to Amado's environmental attorney who will have the legal knowledge to assist Amado. Yoly verbally acknowledged my suggestion. Bipin Wei RN documented in this encounter [facility] 03-20-2025 Telephone encounter Note Pt's mother called post op line in regards to [facility] She is not listed in his chart as a contact or on his HIPAA contact list. Advised her of this, and let her know that I could take her message, but could not give her medical information. She reports that he is having pain, so the snf took him to the hospital for evaluation, then was sent back to snf. Per the mother, the nurse at the snf does not want him there, because they think he is medically unstable. The mother states the snf is requesting a form sent over for a medical release for her son. Advised her that we did not evaluate him, but if the hospital that evaluated him deemed him medically unstable, they would have to write a medical release form. Advised her as well, that the snf would contact us if they needed a form for his medical release. She then said our office has written notes for him to stay out of snf before and we need to write one for him to leave. She states he needs to see his doctor. Advised her that the snf makes the decision to take him to get medically treated, which they have done and they have not contacted our office. Advised her that I will forward her message to Dr. Rivera and Bipin Wei RN. She insists that we do not need to speak with the snf, because they don't do things like [facility]. She states, well you just don't know [facility], you just send them the form. Advised that is not our policy. Pt's mother has no further questions. Tex Hartman RN, BSN Bariatric Rn Lactation [facility] 03-20-2025 Telephone encounter Note Patient's significant other called and left a message yesterday about Amado. She returned my call this morning. Amado is in [facility]. Yoly said, He is having so much pain from his ulcer and the snf refuses to give him his medications. He isn't able to eat and he is supposed to be on a liquid diet, you know those protein drinks and they won't give it to him. He can't even keep down water. I told Yoly if he cannot keep liquids down he needs to go to the ER and the snf has a protocol for that. Yoly states they refuse to take him. That snf is being investigated for not giving people their medications from the doctor. Can't you call the snf? I've called them, his mother has called them and cussed them out. They are not doing anything. I told Yoly this is beyond our capabilities and recommended that she and Amado's mom reach out to Amado's environmental attorney who will have the legal knowledge to assist Amado. Yoly verbally acknowledged my suggestion. Bipin Wei RN [facility] 03-20-2025 Telephone encounter Note Received a phone call from the answering service 0824 am to inform us that an Yoly Walls called on pt's behalf late last night. She reported to the skin peeling machine operator that her fiance (the pt) states he is having pain d/t hernia. She reports that he is unable to even drink water. Dr. Rivera was paged and did not return call. Advised the skin peeling machine operator that the caller is not listed as an emergency contact or on HIPAA list in this pt's chart. Pt is currently incarcerated. Product Safety Engineer will make note that fiance is not listed in pt's chart Tex Hartman RN, BSN Bariatric Rn Lactation [facility] 03-20-2025 Miscellaneous Notes Received a phone call from the answering service 0824 am to inform us that an Yoly Walls called on pt's behalf late last night. She reported to the skin peeling machine operator that her fiance (the pt) states he is having pain d/t hernia. She reports that he is unable to even drink water. Dr. Rivera was paged and did not return call. Advised the skin peeling machine operator that the caller is not listed as an emergency contact or on HIPAA list in this pt's chart. Pt is currently incarcerated. Product Safety Engineer will make note that jim is not listed in pt's chart Tex Hartman RN, BSN Bariatric Rn Lactation Woman that states she is patient's fiance Yoly Martel called to say patient was taken to snf yesterday and they are not feeding him. Call was placed on hold and somehow disconnected. Yoly is currently not listed as an emergency contact or included on patient HIPAA form. No further contact has been made with caller. Parris Marin LPN documented in this encounter [facility] 03-19-2025 Telephone encounter Note Woman that states she is patient's jim Martel called to say patient was taken to snf yesterday and they are not feeding him. Call was placed on hold and somehow disconnected. Yoly is currently not listed as an emergency contact or included on patient HIPAA form. No further contact has been made with caller. Parris Marin LPN [facility] Work Phone: 03-15-2025 Hospital Discharg e instructions Patient Education 03/15/2025 18:48:12 Self-Care for Strains and Sprains Self-Care for Strains and Sprains Most minor strains and sprains can be treated with self-care. Recovering from a strain or sprain may take 6 to 8 weeks. Your self-care goal is to reduce pain and immobilize the injury to speed healing. A sprain injures ligaments (tissue that connects bones to bones). A strain injures muscles or tendons (tissue that connects muscles to bones). Support the injured area Wrapping the injured area provides support for short, necessary activities. Be careful not to wrap the area too tightly. This could cut off the blood supply. Support a wrist, elbow, or shoulder with a sling. Wrap an ankle or knee with an elastic bandage. Tape a finger or toe to the one next to it. Use cold and heat Cold reduces swelling. Both cold and heat reduce pain. Heat should not be used in the initial treatment of the injury. When using cold or heat, always place a thin towel between the pack and your skin. Apply ice or a cold pack 10 to 15 minutes every hour you re awake for the first 2 days. After the swelling goes down, use cold or heat to control pain. Don t use heat late in the day, since it can cause swelling when you re not active. Rest and elevate Rest and elevation help your injury heal faster. Raise the injured area above your heart level. Keep the injured area from moving. Limit the use of the joint or limb. Use medicine Aspirin reduces pain and swelling. (Note: Don t give aspirin to a child 18 or younger unless prescribed by the doctor.) Non-steroidal anti-inflammatory medicines, such as ibuprofen, may reduce pain and swelling, as well. Ask your healthcare provider for advice. When to call your healthcare provider Call your healthcare provider if: The injured joint won t move, or bones make a grating sound when they move You can t put weight on the injured area, even after 24 hours The injured body part is cold, blue, tingling, or numb The joint or limb appears bent or crooked. Pain increases or doesn t improve in 4 days When pressing along the injured area, you notice a spot that is especially painful [id number] [employer]. [address] [place] [address]. All rights reserved. This information is not intended as a substitute for professional medical care. Always follow your healthcare professional's instructions. 03/15/2025 18:48:10 Ankle Sprain (Adult) Ankle Sprain (Adult) An ankle sprain is a stretching or tearing of the ligaments that hold the ankle joint together. There are no broken bones. An ankle sprain is a common injury for both children and adults. It happens when the ankle turns, twists, or rolls in an awkward way. This can be caused by a sports injury. Or it can happen from doing something as simple as stepping on an uneven surface. Ligaments are made of tough connective tissue. Normally, ligaments stretch a certain amount and then go back to their normal place. A sprain happens when a ligament is forced to stretch more than the normal amount. A severe sprain can actually tear the ligaments. If you have a severe sprain, you may have felt or heard something like a pop when you were injured. Ankle sprains are given a grade depending on whether they are mild, moderate, or severe: Grade 1 sprain. A mild sprain with minor stretching and damage to the ligament. Grade 2 sprain. A moderate sprain where the ligament is partly torn. Grade 3 sprain. The most severe kind of sprain. The ligament is completely torn. Most sprains take about 4 to 6 weeks to heal. A severe sprain can take several months to recover. Your healthcare provider may order X-rays to be sure you don t have a fracture, or broken bone. The injured area will feel sore. Swelling and pain may make it hard to walk. You may need crutches if walking is painful. Or your provider may have you use a cast boot or air splint. This will depend on the grade of ankle sprain that you have. Home care For a Grade 1 sprain, use RICE (rest, ice, compression, and elevation): Rest your ankle. Don t walk on it. Ice should be used right away to help control swelling. Place an ice pack over the injured area for 20 minutes. Do this every 3 to 6 hours for the first 24 to 48 hours. Keep using ice packs to ease pain and swelling as needed. To make an ice pack, put ice cubes in a plastic bag that seals at the top. Wrap the bag in a clean, thin towel or cloth. Never put ice or an ice pack directly on the skin. The ice pack can be put right on the cast, bandage, or splint. As the ice melts, be careful that the cast, bandage, or splint doesn t get wet. If you have a boot, open it to apply an ice pack, unless told otherwise by your provider. Compression devices help to control swelling. They also keep the ankle from moving and support your injured ankle. These devices include dressings, bandages, and wraps. Elevate or raise your ankle above the level of your heart when sitting or lying down. This is very important for the first 48 hours. Follow the RICE guidelines for a Grade 2 sprain. This type of sprain will take longer to heal. Your provider may have you wear a splint, cast, or brace to keep your ankle from moving. If you have a Grade 3 sprain, you are at risk for long-term ankle instability. In rare cases, surgery may be needed. Your provider may have you wear a short leg cast or a walking boot for 2 to 3 weeks. After 48 hours, it may be helpful to apply heat for 20 minutes several times a day. You can do this with a heating pad or warm compress. Or you may want to go back and forth between using ice and heat. Never apply heat directly to the skin. Always wrap the heating pad or warm compress in a clean, thin towel or cloth. You may use gjte-ymz-gglrnnu pain medicine (NSAIDS or nonsteroidal anti-inflammatory drugs) to control pain, unless another pain medicine was prescribed. Talk with your provider before using these medicines if you have chronic liver or kidney disease, or have ever had a stomach ulcer or gastrointestinal bleeding. Follow any rehabilitation exercises your provider gives you. These can help you be more flexible and improve your balance and coordination. This is helpful in preventing long-term ankle problems. Prevention To help prevent ankle sprains, it s important to have good strength, balance, and flexibility. Be sure to: Always warm up before you exercise or do something very active Be careful when walking or running on uneven or cracked surfaces Wear shoes that are in good condition and fit well Listen to your body s signals to slow down when you are in pain or tired Follow-up care Any X-rays you had today don t show any broken bones, breaks, or fractures. Sometimes fractures don t show up on the first X-ray. Bruises and sprains can sometimes hurt as much as a fracture. These injuries can take time to heal completely. If your symptoms don t get better or they get worse, talk with your healthcare provider. You may need a repeat X-ray. Follow up with your healthcare provider, or as advised. Check for any warning signs listed below. When to seek medical advice Call your healthcare provider right away if any of these occur: Fever of 100.4 F (38 C) or higher, or as directed by your healthcare provider Chills The injury doesn t seem to be healing The swelling comes back The cast or splint has a bad smell The plaster cast or splint gets wet or soft The fiberglass cast or splint gets wet and does not dry for 24 hours The pain or swelling increases, or redness appears Your toes become cold, blue, numb, or tingly The skin is discolored (looks blue, purple, or farnsworth), has blisters, or is irritated You re-injure your ankle [id number] [employer]. [address] [place] [address]. All rights reserved. This information is not intended as a substitute for professional medical care. Always follow your healthcare professional's instructions. Follow Up Care 03/15/2025 18:28:10 With:LINK JIMENEZ MD Address: [address] [place] [address] [facility] [place] [address]- [phone] When:5 to 7 days With:Go to emergency room if symptoms worsen Address:Unknown When:2-4 days With:JULIA FISCHER DPM, Surgery Address: [address] [id number] [facility] (1) When:2-4 days [facility] 03-15-2025 Note Discharge Instructions Thank you for allowing [facility] to assist you with your healthcare needs. The following is important discharge information regarding your hospital visit. Diagnosis from Today's Visit Ankle sprain What to Do Next Instructions from Your Care Team Discharge Home Equipment - Ordered -- Splint, Ankle Stirrup Right, 99 month(s), 03/15/25 19:22:00 EDT Discharge Home Equipment - Ordered -- Crutches, 99 month(s), 03/15/25 19:22:00 EDT Post Acute Orders No qualifying data available. You Need to Schedule the Following Appointments Follow Up with LINK JIMENEZ MD When:Within 5 to 7 days Where:[address] [place] [address] [address] [place] [address]- [phone] Follow Up with Go to emergency room if symptoms worsen When:Within 2-4 days Follow Up with JULIA FISCHER DPM, Surgery When:Within 2-4 days Where:[address] [address] [phone] Business (1) Allergies penicillin Medications Please ask your primary doctor or pharmacist before taking any other medication not listed, including over the counter drugs, herbal medications, vitamins and or supplements as they may interact with your home medications. What How Much When Why Instructions Last Dose New naproxen (naproxen 500 mg oral tablet) 1 tab(s) by mouth Twice daily with meals Duration: 7 Days Printed Prescription Unchanged acetaminophen-oxyCODONE (Percocet 5 mg-325 mg oral tablet) 1 tab(s) by mouth Every 6 hours as needed for for pain Infected hand Duration: 3 Days Unchanged albuterol (albuterol MDI (90 mcg/ inh) CFC free inhalation aerosol) 1 puff(s) by inhalation Four (4) times a day as needed for as needed for wheezing Unchanged cephalexin (cephalexin 500 mg oral capsule) 1 cap by mouth Four (4) times a day Infected hand Duration: 10 Days Unchanged doxycycline (doxycycline hyclate 100 mg oral [...] medication providers or retail pharmacies. Education Materials Self-Care for Strains and Sprains Most minor strains and sprains can be treated with self-care. Recovering from a strain or sprain may take 6 to 8 weeks. Your self-care goal is to reduce pain and immobilize the injury to speed healing. A sprain injures ligaments (tissue that connects bones to bones). A strain injures muscles or tendons (tissue that connects muscles to bones). Support the injured area Wrapping the injured area provides support for short, necessary activities. Be careful not to wrap the area too tightly. This could cut off the blood supply. Support a wrist, elbow, or shoulder with a sling. Wrap an ankle or knee with an elastic bandage. Tape a finger or toe to the one next to it. Use cold and heat Cold reduces swelling. Both cold and heat reduce pain. Heat should not be used in the initial treatment of the injury. When using cold or heat, always place a thin towel between the pack and your skin. Apply ice or a cold pack 10 to 15 minutes every hour you re awake for the first 2 days. After the swelling goes down, use cold or heat to control pain. Don t use heat late in the day, since it can cause swelling when you re not active. Rest and elevate Rest and elevation help your injury heal faster. Raise the injured area above your heart level. Keep the injured area from moving. Limit the use of the joint or limb. Use medicine Aspirin reduces pain and swelling. (Note: Don t give aspirin to a child 18 or younger unless prescribed by the doctor.) Non-steroidal anti-inflammatory medicines, such as ibuprofen, may reduce pain and swelling, as well. Ask your healthcare provider for advice. When to call your healthcare provider Call your healthcare provider if: The injured joint won t move, or bones make a grating sound when they move You can t put weight on the injured area, even after 24 hours The injured body part is cold, blue, tingling, or numb The joint or limb appears bent or crooked. Pain increases or doesn t improve in 4 days When pressing along the injured area, you notice a spot that is especially painful [id number] [employer]. [address] [place] [address]. All rights reserved. This information is not intended as a substitute for professional medical care. Always follow your healthcare professional's instructions. Ankle Sprain (Adult) An ankle sprain is a stretching or tearing of the ligaments that hold the ankle joint together. There are no broken bones. An ankle sprain is a common injury for both children and adults. It happens when the ankle turns, twists, or rolls in an awkward way. This can be caused by a sports injury. Or it can happen from doing something as simple as stepping on an uneven surface. Ligaments are made of tough connective tissue. Normally, ligaments stretch a certain amount and then go back to their normal place. A sprain happens when a ligament is forced to stretch more than the normal amount. A severe sprain can actually tear the ligaments. If you have a severe sprain, you may have felt or heard something like a pop when you were injured. Ankle sprains are given a grade depending on whether they are mild, moderate, or severe: Grade 1 sprain. A mild sprain with minor stretching and damage to the ligament. Grade 2 sprain. A moderate sprain where the ligament is partly torn. Grade 3 sprain. The most severe kind of sprain. The ligament is completely torn. Most sprains take about 4 to 6 weeks to heal. A severe sprain can take several months to recover. Your healthcare provider may order X-rays to be sure you don t have a fracture, or broken bone. The injured area will feel sore. Swelling and pain may make it hard to walk. You may need crutches if walking is painful. Or your provider may have you use a cast boot or air splint. This will depend on the grade of ankle sprain that you have. Home care For a Grade 1 sprain, use RICE (rest, ice, compression, and elevation): Rest your ankle. Don t walk on it. Ice should be used right away to help control swelling. Place an ice pack over the injured area for 20 minutes. Do this every 3 to 6 hours for the first 24 to 48 hours. Keep using ice packs to ease pain and swelling as needed. To make an ice pack, put ice cubes in a plastic bag that seals at the top. Wrap the bag in a clean, thin towel or cloth. Never put ice or an ice pack directly on the skin. The ice pack can be put right on the cast, bandage, or splint. As the ice melts, be careful that the cast, bandage, or splint doesn t get wet. If you have a boot, open it to apply an ice pack, unless told otherwise by your provider. Compression devices help to control swelling. They also keep the ankle from moving and support your injured ankle. These devices include dressings, bandages, and wraps. Elevate or raise your ankle above the level of your heart when sitting or lying down. This is very important for the first 48 hours. Follow the RICE guidelines for a Grade 2 sprain. This type of sprain will take longer to heal. Your provider may have you wear a splint, cast, or brace to keep your ankle from moving. If you have a Grade 3 sprain, you are at risk for long-term ankle instability. In rare cases, surgery may be needed. Your provider may have you wear a short leg cast or a walking boot for 2 to 3 weeks. After 48 hours, it may be helpful to apply heat for 20 minutes several times a day. You can do this with a heating pad or warm compress. Or you may want to go back and forth between using ice and heat. Never apply heat directly to the skin. Always wrap the heating pad or warm compress in a clean, thin towel or cloth. You may use xbsv-byv-axgvmtu pain medicine (NSAIDS or nonsteroidal anti-inflammatory drugs) to control pain, unless another pain medicine was prescribed. Talk with your provider before using these medicines if you have chronic liver or kidney disease, or have ever had a stomach ulcer or gastrointestinal bleeding. Follow any rehabilitation exercises your provider gives you. These can help you be more flexible and improve your balance and coordination. This is helpful in preventing long-term ankle problems. Prevention To help prevent ankle sprains, it s important to have good strength, balance, and flexibility. Be sure to: Always warm up before you exercise or do something very active Be careful when walking or running on uneven or cracked surfaces Wear shoes that are in good condition and fit well Listen to your body s signals to slow down when you are in pain or tired Follow-up care Any X-rays you had today don t show any broken bones, breaks, or fractures. Sometimes fractures don t show up on the first X-ray. Bruises and sprains can sometimes hurt as much as a fracture. These injuries can take time to heal completely. If your symptoms don t get better or they get worse, talk with your healthcare provider. You may need a repeat X-ray. Follow up with your healthcare provider, or as advised. Check for any warning signs listed below. When to seek medical advice Call your healthcare provider right away if any of these occur: Fever of 100.4 F (38 C) or higher, or as directed by your healthcare provider Chills The injury doesn t seem to be healing The swelling comes back The cast or splint has a bad smell The plaster cast or splint gets wet or soft The fiberglass cast or splint gets wet and does not dry for 24 hours The pain or swelling increases, or redness appears Your toes become cold, blue, numb, or tingly The skin is discolored (looks blue, purple, or farnsworth), has blisters, or is irritated You re-injure your ankle [id number] [employer]. [address] [place] [address]. All rights reserved. This information is not intended as a substitute for professional medical care. Always follow your healthcare professional's instructions. Additional Information VACCINATE! IT SAVES LIVES! Members of the community who have not yet received the COVID-19 vaccine and would like to receive it can visit one of [facility] vaccine clinics. There are many vaccine clinic locations within the [facility]. For locations and available times, please visit www.gettheshot.coronavirus.[place] .gov/. It is important to note that some COVID mobile vaccine clinics are held outdoors and may be canceled in rainy or stormy conditions. To learn more about pediatric vaccinations (ages 5-11), we invite you to visit the [facility] webpage. [email or web address]/ [email or web address]-Jqwugsdsrkh-Fr lomhpzel-[email or web address]-[email or web address].html To learn more about the COVID-19 vaccine, we invite you to visit the CDC website for a list of frequently asked questions. https://www.cdc.gov/coronavirus /2019-ncov/vaccines/faq.html [facility] [employer] Patient Portal Access Instructions: Stay connected with your healthcare team and access your personal medical information anytime with the [facility] Patient Portal. If you would like a full copy of your medical records please contact the [facility] Medical Records Department Sunday through Sunday between 8a.m. and 4:30p.m. Please follow the directions below to access the portal: 1.Access the email account you provided upon registration to the [facility].2.Look for an invitation email from [facility].3.Open the email and access the invitation link: Accept Invitation to [facility]4.Fill in the required mayer to create your account. Sign into [email or web address] with your username and password that you [...] you will allow to register on the [facility] Patient Portal for access to your information. You can also access the [facility] Patient Portal on the [employer]. Simply click on Health Records under Health Data and then click on the [employer] logo. HOW TO SAFELY DISPOSE OF PRESCRIPTION [...] Call your local pharmacy or go to [email or web address] to find one close to you.3.Make use of household items: Use cat litter or old coffee grounds to dispose medications if other options are not available. Mix your drugs with these household products, seal them in an airtight container and throw it into the garbage. Call [facility]: [phone] to be sure your drugs can be [...] a CHART COPY Signatures Patient Education Materials Self-Care for Strains and Sprains Ankle Sprain (Adult) Medication Leaflets My discharge plan and instructions have been reviewed and explained to me and I,AMADO MARINELLI Gifty understand my current condition and have read and understand these discharge instructions. I have received a written copy of the plan/instructions. If I have questions, I am aware that I should contact my doctor. 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 Signature: Date/Time: Relationship to Patient: Witness Name/Signature: Date/Time: [facility] 03-15-2025 Note Exam Date Time Procedure Performing Provider Status 03/15/25 6:52 PM XR Ankle and Foot 6 Views Right REECE QUIROZ MD; Auth (Verified) [id number] ORIGINAL EXAMINATION: 6 XRAY VIEWS OF THE RIGHT FOOT and ankle03/15/2025 6:52 pm COMPARISON: None HISTORY: ORDERING SYSTEM PROVIDED HISTORY: Reason for Exam: rolled ankle/foot FINDINGS: No fracture or dislocation. The joint spaces are preserved and normal alignment. No radiopaque foreign body. IMPRESSION: No acute fracture. I have personally reviewed the images of this examination and agree with the resident's findings and interpretation. Interpreted by: Reece Fox Preliminary Report By: Howard Narayan Electronically signed By Reece Fox Dictated Date: 03/15/2025 7:03:30 PM Prelim Date: 03/15/2025 7:05:48 PM Sign Date: 03/15/2025 7:13:24 PM Ordering Provider: CATALINA DELAROSA Interpreted by: Reece Fox Preliminary Report By: Howard Narayan Electronically signed By Reece Fox Dictated Date: 03/15/2025 7:03:30 PM Prelim Date: 03/15/2025 7:05:48 PM Sign Date: 03/15/2025 7:13:24 PM Ordering Provider: [facility] Bonialatgracia [id number] NoteHNO ID: [id number] Author: HARRIET RIVERA MD Service: ? Author Type: Physician Type: Progress Notes Filed: 03/05/2025 12:10 Note Text: SURGICAL SERVICES HISTORY AND PHYSICAL EXAMINATION SERVICE DATE: 03/05/2025 SERVICE TIME: 11:43 AM PRIMARY CARE PHYSICIAN: Dacia Camejo MD SUBJECTIVE CHIEF COMPLAINT: heartburn HISTORY OF PRESENT ILLNESS: Mr. Marinelli is a 34 year old male with a PMH of ADHD, Bipolar d/o and depression, polysubstance abuse (meth, heroin, overdose 07/2019), genital herpes, and tobacco use disorder who presents for follow up after recent surgical testing. 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 Today he presents with a support person. He reports continued symptoms of substernal burning and occasional regurgitation. Symptoms are often post prandial and when laying supine at HS. Workup: - EGD (01/23/25; Nicole): LA grade B esophagitis. Fuentes capsule placement. 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 The only dissection completed in the attempted surgery, per the operative report, was dissection over the right zaida. The patient reports greater than one year history of heartburn and regurgitation symptoms that occur every time that he eats - no matter what he eats, he immediately experiences regurgitation of acid and food. He states that 2-3 times per week he has regurgitation of food he has just consumed and 2-3 nights per week he has on-going/near continuous emesis for 2-3 hours. His most severe symptoms occur at night. He was on Omeprazole 40 mg BID about one year and does not think it helped his symptoms at all and is no longer taking this medication. He eats a lot of Tums and thinks that every once in a while they help his symptoms. He states that his surgeon also placed him on baby ASA daily and he is still taking this. He denies dysphagia. Social: smokes 1.5 packs of cigarettes per day; denies use of vape; denies SHS exposure. On probation so not using drugs currently - last use was one year ago. Denies use of ETOH or MJ PAST MEDICAL HISTORY: PAST MEDICAL HISTORY Diagnosis Date ADHD (attention deficit hyperactivity disorder) Asthma ([facility]) Bipolar disorder ([facility]) Depression [facility], history of suicide attempt Genital herpes 04/2013 GERD (gastroesophageal reflux disease) Polysubstance abuse ([facility]) meth, heroin. Oversoe 07/2019 [facility] Tobacco use disorder PAST SURGICAL HISTORY: PAST SURGICAL HISTORY Procedure Laterality Date 48 HOUR PH STUDY 01/23/2025 Dr. Rivera EGD WITH BIOPSY(S) 01/23/2025 Dr. Rivera EXPLORATORY OF ABDOMEN 09/15/2024 aborted Maxwell; Dr. Rodriguez HAND SURGERY HX Left 02/18/2018 MANOMETRY ESOPHAGEAL 01/23/2025 Dr. Rivera FAMILY HISTORY: FAMILY HISTORY Problem Relation Age of Onset COPD Father Cancer Father of lung cancer Cancer Paternal Grandfather of lung cancer Cancer Paternal Uncle of lung cancer Psychiatry Mother depression Diabetes Maternal Grandmother SOCIAL HISTORY: Social History Tobacco Use Smoking status: Every Day Current packs/day: 0.50 Average packs/day: 0.5 packs/day for 5.0 years (2.5 ttl pk-yrs) Types: Cigarettes Smokeless tobacco: Former Types: Chew Tobacco comments: started smoking 17yo Smokes 0.25 PPD since 11/2024 Smoked 1-2 PPD x 17 years Vaping Use Vaping status: Never Used Substance Use Topics Alcohol use: No Drug use: Not Currently Types: Heroin, Amphetamines MEDICATIONS: Current Outpatient Medications Medication Sig aspirin, enteric coated (ASPIRIN, ENTERIC COATED) 81 mg EC tablet Take 1 tablet by mouth every afternoon. hydrOXYzine HCl (ATARAX) 50 mg tablet Take 1 tablet by mouth every 12 hours. omeprazole (PRILOSEC) 40 mg capsule Take 1 capsule by mouth every 12 hours. QUEtiapine XR (SEROQUEL XR) 50 mg Tb24 Take 50 mg by mouth daily at bedtime. (Patient not taking: Reported on 10/23/2024) traZODone (DESYREL) 50 mg tablet Take 50 mg by mouth daily at bedtime. ALBUTEROL INHALATION Inhale as instructed. keTORolac (TORADOL) 10 mg tablet Take 1 tablet by mouth every 6 hours as needed. (Patient not taking: Reported on 10/23/2024) No current facility-administered medications for this visit. ALLERGIES: ALLERGIES Allergen Reactions Ibuprofen GI Upset Naproxen GI Upset Penicillins Other: See Comments Throat started to close up. COMPLETE REVIEW OF SYSTEMS: Review of Systems Constitutional: Negative for chill (more content not included)...[facility]06-26-2025 History of Present illness Narrative* Harriet Rivera MD - 03/05/2025 11:43 AM EDT SURGICAL SERVICES HISTORY AND PHYSICAL EXAMINATION SERVICE DATE: 03/05/2025 SERVICE TIME: 11:43 AM PRIMARY CARE PHYSICIAN: Dacia Camejo MD SUBJECTIVE CHIEF COMPLAINT: heartburn HISTORY OF PRESENT ILLNESS: Mr. Marinelli is a 34 year old male with a PMH of ADHD, Bipolar d/o and depression, polysubstance abuse (meth, heroin, overdose 07/2019), genital herpes, and tobacco use disorder who presents for follow up after recent surgical testing. 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 Today he presents with a support person. He reports continued symptoms of substernal burning and occasional regurgitation. Symptoms are often post prandial and when laying supine at HS. Workup: - EGD (01/23/25; Nicole): LA grade B esophagitis. Fuentes capsule placement. 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 The only dissection completed in the attempted surgery, per the operative report, was dissection over the right zaida. The patient reports greater than one year history of heartburn and regurgitation symptoms that occur every time that he eats - no matter what he eats, he immediately experiences regurgitation of acidand food. He states that 2-3 times per week he has regurgitation of food he has just consumed and 2-3 nights per week he has on-going/near continuous emesis for 2-3 hours. His most severe symptoms occur at night. He was on Omeprazole 40 mg BID about one year and does not think it helped his symptoms at all and is no longer taking this medication. He eats a lot of Tums and thinks that every once in a while they help his symptoms. He states that his surgeon also placed him on baby ASA daily and he is still taking this. He denies dysphagia. Social: smokes 1.5 packs of cigarettes per day; denies use of vape; denies SHS exposure. On probation so not using drugs currently - last use was one year ago. Denies use of ETOH or MJ PAST MEDICAL HISTORY: PAST MEDICAL HISTORY Diagnosis Date ADHD (attention deficit hyperactivity disorder) Asthma ([facility]) Bipolar disorder ([facility]) Depression [facility], history of suicide attempt Genital herpes 04/2013 GERD (gastroesophageal reflux disease) Polysubstance abuse ([facility]) meth, heroin. Oversoe 07/2019 [facility] Tobacco use disorder PAST SURGICAL HISTORY: PAST SURGICAL HISTORY Procedure Laterality Date 48 HOUR PH STUDY 01/23/2025 Dr. Rivera EGD WITH BIOPSY(S) 01/23/2025 Dr. Rivera EXPLORATORY OF ABDOMEN 09/15/2024 aborted Maxwell; Dr. Rodriguez HAND SURGERY HX Left 02/18/2018 MANOMETRY ESOPHAGEAL 01/23/2025 Dr. Rivera FAMILY HISTORY: FAMILY HISTORY Problem Relation Age of Onset COPD Father Cancer Father of lung cancer Cancer Paternal Grandfather of lung cancer Cancer Paternal Uncle of lung cancer Psychiatry Mother depression Diabetes Maternal Grandmother SOCIAL HISTORY: Social History Tobacco Use Smoking status: Every Day Current packs/day: 0.50 Average packs/day: 0.5 packs/day for 5.0 years (2.5 ttl pk-yrs) Types: Cigarettes Smokeless tobacco: Former Types: Chew Tobacco comments: started smoking 17yo Smokes 0.25 PPD since 11/2024 Smoked 1-2 PPD x 17 years Vaping Use Vaping status: Never Used Substance Use Topics Alcohol use: No Drug use: Not Currently Types: Heroin, Amphetamines MEDICATIONS: Current Outpatient Medications Medication Sig aspirin, enteric coated (ASPIRIN, ENTERIC COATED) 81 mg EC tablet Take 1 tablet by mouth every afternoon. hydrOXYzine HCl (ATARAX) 50 mg tablet Take 1 tablet by mouth every 12 hours. omeprazole (PRILOSEC) 40 mg capsule Take 1 capsule by mouth every 12 hours. QUEtiapine XR (SEROQUEL XR) 50 mg Tb24 Take 50 mg by mouth daily at bedtime. (Patient not taking: Reported on 10/23/2024) traZODone (DESYREL) 50 mg tablet Take 50 mg by mouth daily at bedtime. ALBUTEROL INHALATION Inhale as instructed. keTORolac (TORADOL) 10 mg tablet Take 1 tablet by mouth every 6 hours as needed. (Patient not taking: Reported on 10/23/2024) No current facility-administered medications for this visit. ALLERGIES: ALLERGIES Allergen Reactions Ibuprofen GI Upset Naproxen GI Upset Penicillins Other: See Comments Throat started to close up. COMPLETE REVIEW OF SYSTEMS: Review of Systems Constitutional: Negative for chills, diaphoresis, fever and malaise/fatigue. HENT: Negative for congestion, hearing loss, nosebleeds, sinus pain, sore throat and tinnitus. Eyes: Negative for blurred vision, double vision, pain and redness. Respiratory: Negative for cough, hemoptysis, sputum production, shortness of breath and wheezing. Cardiovascular: Positive for chest pain. Negative for palpitations, orthopnea, leg swelling and PND. Gastrointestinal: Positive for heartburn, nausea and vomiting (regurgitation). Negative for abdominal pain, blood in stool, constipation and diarrhea. Genitourinary: Negative for dysuria, frequency, hematuria and urgency. Musculoskeletal: Negative for back pain, falls, joint pain, myalgias and neck pain. Skin: Negative for itching and rash. Neurological: Negative for dizziness, speech change, focal weakness, seizures, loss of consciousness, weakness and headaches. Endo/Heme/Allergies: Does not bruise/bleed easily. Psychiatric/Behavioral: Positive for depression. Negative for hallucinations, memory loss, substance abuse and suicidal ideas. The patient is not nervous/anxious and does not have insomnia. OBJECTIVE PHYSICAL EXAM: BP 122/62 Pulse 77 Ht 6' 0 (1.83m) Wt 199 lb 9.6 oz (90.5kg) BMI 27.06 kg/(m^2). Physical Exam Vitals reviewed. Constitutional: Appearance: Normal appearance. HENT: Head: Normocephalic and atraumatic. Nose: Nose normal. Eyes: General: No scleral icterus. Extraocular Movements: Extraocular movements intact. Conjunctiva/sclera: Conjunctivae normal. Pupils: Pupils are equal, round, and reactive to light. Cardiovascular: Rate and Rhythm: Normal rate. Pulmonary: Effort: Pulmonary effort is normal. No respiratory distress. Skin: General: Skin is warm and dry. Coloration: Skin is not jaundiced or pale. Neurological: Mental Status: He is alert and oriented to person, place, and time. Psychiatric: Behavior: Behavior normal. DATA: Diagnostic tests reviewed for today's visit: EMR reviewed Plan ASSESSMENT AND PLAN Amado Marinelli is a 34 year old male with a PMH as noted above who presents with GERD with esophagitis and small hiatal hernia. ASSESSMENT/PLAN: 1. Gastroesophageal reflux disease with esophagitis without hemorrhage - ICD9: 530.81, 530.10, ICD10: K21.00 (primary diagnosis) - Discussed lifestyle modifications including losing weight, limiting caffeine, no meals three hours before sleep, and head of bed elevation - Transition to Protonix 40 mg BID and Carafate TID - Smoking Cessation 2. Hiatal hernia - ICD9: 553.3, ICD10: K44.9 - Small HH noted on esophagram and HG 4 on EGD. - Discussed medical versus surgical management options - I have transitioned him to Protonix and Carafate and have strongly encouraged him to stop smoking. He understands that in order to be a candidate for operative intervention, he will need to demonstrate at least one negative nicotine test. He is currently down to 1/2 ppd of cigarettes. - Will have him follow up to further discuss surgical intervention once he has provided a negative nicotine test. - I discussed the surgical repair of laparoscopic hiatal hernia repair with fundoplication. All questions/concerns were addressed. 3. Esophageal spasm - ICD9: 530.5, ICD10: K22.4 - Transition to Protonix 40 mg BID and Carafate TID - Continue working on smoking cessation 4. Tobacco use - ICD9: 305.1, ICD10: Z72.0 - Cessation encouraged. - Physiologic and physical aspects of tobacco addiction as well as strategies for quitting were discussed. - Counseling was given focusing on the harmful effects of this addiction especially given the patient's medical condition(s) which will be worsened because of the chemicals in tobacco. - Counseling was given 5 minutes. - NICOTINE & METAB, UR 5. Polysubstance abuse (HCC) - ICD9: 305.90, ICD10: F19.10 - Currently on probation getting random drug tests. 6. Bipolar affective disorder, remission status unspecified (HCC) - ICD9: 296.80, ICD10: F31.9 - Continue current medical management Medical Decision Making: Problems: Moderate: 2+ stable chronic illnesses Data: Unique test result(s) reviewed: 3+ Discussed management or test w/ external physician/QHCP/source Risk: Moderate: Drug management and Decision on elective major surgery w/o risk factors Medical Decision Making Level: 4 - Moderate SIGNATURE: Harriet Rivera MD PATIENT NAME: Amado Marinelli DATE: March 05, 2025 TIME: 11:43 AM PAGER/CONTACT #: [phone] [facility]Tr[facility] NoteHNO ID: [id number] Author: HARRIET RIVERA MD Service: ? 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 He was to return the security sales manager around 01/26- and did not comply with these instructions. Due to not having sufficient information (FUENTES results) his appointment was rescheduled.[facility]06-05-2025 Telephone encounter Note* Telephone Encounter - Cara Escalante - 02/12/2025 1:52 PM EDT SW patient - let patient know the appointment is cancelled for 02/13/2025. [facility]06-05-2025 Miscellaneous Notes* Telephone Encounter - Cara Escalante - 02/12/2025 1:52 PM EDT SW patient - let patient know the appointment is cancelled for 02/13/2025. documented in this encounterTr[facility]06-03-20[facility] History of Present illness Narrative* Kolby Holland RT(Romero) - 02/10/2025 2:30 PM EDT Radiology Service Progress Note PATIENT NAME: Amado Marinelli DATE OF SERVICE: February 10, 2025 TIME: 2:51 PM PATIENT IDENTITY VERIFICATION COMPLETED USING TWO (2) IDENTIFIERS: Name and Date of confirmedby patient verbally. FALL SCREENING: Has the patient had 2 falls in the last year or 1 fall with injury or currently using an Ambulatory Assistive Device (Walker, Cane, Wheelchair, Crutches, etc.)? No PATIENT GENDER DATA: Assigned male at PATIENT RELEVANT IMPLANT DATA REVIEWED: Not Applicable PATIENT PRESENTS WITH AN IMPLANTABLE OR ATTACHED SANDBLASTER STONE: No RADIOLOGY DEPARTMENT: General X-ray: Exam(s) Completed: GI/ Procedure(s): Esophogram with barium contrast PERIPHERAL IV DATA: Not applicable SIGNED BY: RT Jamar(Romero) February 10, 2025 2:51 PM documented in this encounterTr[facility]06-03-2025 NoteHNO ID: [id number] Author: KOLBY HOLLAND RT(R) Service: ? Author Type: Brake Adjuster Type: Progress Notes Filed: 02/10/2025 14:52 Note Text: Radiology Service Progress Note PATIENT NAME: Amado Marinelli DATE OF SERVICE: February 10, 2025 TIME: 2:51 PM PATIENT IDENTITY VERIFICATION COMPLETED USING TWO (2) IDENTIFIERS: Name and Date of confirmed by patient verbally. FALL SCREENING: Has the patient had 2 falls in the last year or 1 fall with injury or currently using an Ambulatory Assistive Device (Walker, Cane, Wheelchair, Crutches, etc.)? No PATIENT GENDER DATA: Assigned male at PATIENT RELEVANT IMPLANT DATA REVIEWED: Not Applicable PATIENT PRESENTS WITH AN IMPLANTABLE OR ATTACHED SANDBLASTER STONE: No RADIOLOGY DEPARTMENT: General X-ray: Exam(s) Completed: GI/ Procedure(s): Esophogram with barium contrast PERIPHERAL IV DATA: Not applicable SIGNED BY: Kolby Holland, RT(R) February 10, 2025 2:51 [facility]06-02-2025 Radiology Diagnostic study note [facility] Imaging Services [address], [place] [address] Shoulder min 2 Views MR#: [id number] Acct: [id number] Name: AMADO MARINELLI Rep #: [id number] : 1990 M 34 From: Adriel Larkin MD PCP: MAYCOL Jenkins, DITCHING MACHINE ENGINEER-C Status: PRE ER Study:Shoulder min 2 Views Date of Exam: 02/09/25 Exam# [id number] Ordering Dr: Provider ,Ed P. PROCEDURE: SHOULDER MIN 2 VIEWS 02/09/2025 REASON FOR EXAM: FALL TECHNIQUE: Four views of the left shoulder. COMPARISON: None. FINDINGS: No evidence of acute fracture or dislocation. Soft tissues are unremarkable. RAD/Shoulder min 2 Views IMPRESSION: No acute osseous abnormalities. Reading Location: [id number] CC: [facility] DITCHING MACHINE ENGINEER-C Jennifer Mathur; ED PHYSICIAN PROVIDER ~ Book Canvasser: Signed [facility]05-27-2025 Telephone encounter Note* Telephone Encounter - Bipin Wei RN - 02/03/2025 4:23 PM EDT Patient called and informed me he is done with his testing and he does not understand what his appointment is for on 02/10/25. I reminded him that he no showed for his UGI x-ray in November and we got it rescheduled at [facility]. Patient apologized and wrote down the address I gave him. I reminded him to be NPO for 4 hours before the testing. Patient agreed. Patient confirmed his appointment on 02/12/[address] Rivera. He thanked me for the information. Bipin Wei RN [facility]05-27-2025 Miscellaneous Notes* Telephone Encounter - Bipin Wie RN - 02/03/2025 4:23 PM EDT Patient called and informed me he is done with his testing and he does not understand what his appointment is for on 02/10/25. I reminded him that he no showed for his UGI x-ray in November and we got it rescheduled at [facility]. Patient apologized and wrote down the address I gave him. I reminded him to be NPO for 4 hours before the testing. Patient agreed. Patient confirmed his appointment on 02/12/[address] Rivera. He thanked me for the information. Bipin Wei RN documented in this encounterTr[facility]05-16-2025 Telephone encounter Note * Telephone Encounter - Bipin Wei RN - 01/23/2025 12:44 PM EDT I called patient and reminded him he no showed for his UGI on 12/05/24 and he will need to complete this test before his follow up appointment with Dr. Rivera on 02/12/25. Patient said he would reschedule it and agreed to be transferred to Centralized Scheduling. Before I transferred the call patient is requesting a letter to be sent to Judge Gunderson at [facility] [address]. Patient is supposed to report to snf for 30 days starting 02/09/25. Judge Gunderson told the patient he will reassign the report date if he receives a letter from his doctor with his appointment dates. Patient stated he will get me a fax number to submit it to Judge Gunderson. I told him I will share this info with Dr. Rivera. I asked the patient if he was still smoking and he replied, I'm smoking my last cigarette now so Ican take the nicotine test in a week. I informed him he needs to be smoke free fro 4 weeks before taking the nicotine test. I transferred the patient to Centralized Scheduling. Bipin Wei RN [facility]05-16-2025 Miscellaneous Notes* Telephone Encounter - Bipin Wei RN - 01/23/2025 12:44 PM EDT I called patient and reminded him he no showed for his UGI on 12/05/24 and he will need to complete this test before his follow up appointment with Dr. Rivera on 02/12/25. Patient said he would reschedule it and agreed to be transferred to Centralized Scheduling. Before I transferred the call patient is requesting a letter to be sent to Judge Gunderson at [facility]. Patient is supposed to report to snf for 30 days starting 02/09/25. Judge Gunderson told the patient he will reassign the report date if he receives a letter from his doctor with his appointment dates. Patient stated he will get me a fax number to submit it to Judge Gunderson. I told him I will share this info with Dr. Rivera. I asked the patient if he was still smoking and he replied, I'm smoking my last cigarette now so Ican take the nicotine test in a week. I informed him he needs to be smoke free fro 4 weeks before taking the nicotine test. I transferred the patient to Centralized Scheduling. Bipin Wei RN documented in this encounterTrinity [facility]05-16-2025 Nurse Note* Madan Chavez RN - 01/23/2025 10:39 AM EDT The patient was brought into the procedure room and a time out was done. Patient denies taking any muscle relaxers or blood thinners. Patient denies any surgeries or injuries to nose. After confirmation of potential allergies, a topical analgesic was used to numb the left nares followed by the trans-nasal insertion of a High Resolution Manometry catheter. Pressure bands of the UES and LES were observed on the color contour. The patient was instructed to take a deep breath to verify placement ofcatheter, diaphragmatic pinch noted on inspiration. The patient was assisted to left lateral position and the catheter stabilized. The patient was encouraged to relax while acclimating to the catheter for approximately 5 minutes. A 30 second baseline pressure was obtained to identify the UES and LES followed by a series of ten wet swallows, using 5mL of room temperature normal saline to assess esophageal motility. At the conclusion of the procedure the catheter was removed. The patient tolerated the procedure well. Patient was informed of possible congestion and minimal nose bleeding following procedure.No heme noted when catheter removed. [facility]05-16-2025 Nurse Note* Madan Chavez RN - 01/23/2025 10:39 AM EDT The patient was brought into the procedure room and a time out was done. Patient denies taking any muscle relaxers or blood thinners. Patient denies any surgeries or injuries to nose. After confirmation of potential allergies, a topical analgesic was used to numb the left nares followed by the trans-nasal insertion of a High Resolution Manometry catheter. Pressure bands of the UES and LES were observed on the color contour. The patient was instructed to take a deep breath to verify placement ofcatheter, diaphragmatic pinch noted on inspiration. The patient was assisted to left lateral position and the catheter stabilized. The patient was encouraged to relax while acclimating to the catheter for approximately 5 minutes. A 30 second baseline pressure was obtained to identify the UES and LES followed by a series of ten wet swallows, using 5mL of room temperature normal saline to assess esophageal motility. At the conclusion of the procedure the catheter was removed. The patient tolerated the procedure well. Patient was informed of possible congestion and minimal nose bleeding following procedure.No heme noted when catheter removed. documented in this encounterTrinity [facility]05-16-2025 History and physical note * Loan Caraballo APRN.STEVIE - 01/23/2025 10:00 AM EDT HISTORY AND PHYSICAL EXAMINATION SERVICE DATE: 01/23/2025 SERVICE TIME: 7:55 AM PRIMARY CARE PHYSICIAN: Dacia Camejo MD REASON FOR VISIT: The reason for this visit is To perform a comprehensive review of the patients past medical history, assess their current health status and obtain any additional testing required based on anesthesia guidelines. To assess and identify potential anesthesia problems, particularly those that may suggest potential complications or contraindications to the planned procedure. The patient has the following: ACTIVE PROBLEM LIST Genital Herpes Adhd (Attention Deficit Hyperactivity Disorder) Depression Tobacco Use Disorder Hand Laceration Involving Tendon, Initial Encounter Hand Laceration Involving Tendon, Left, Subsequent Encounter Bipolar Disorder (Hcc) Pre-Op Examination Gastroesophageal Reflux Disease Asthma (Hcc) Subjective CHIEF COMPLAINT: Preoperative Examination HPI: [facility] for the above procedure. Patient here for routine Upper GI Endoscopy screening. Patient reports N/V/, syncopal episodes after eating. Reports attempted robotic Nissenfundoplication on 09/15/24 which was aborted due to the finding of a large replaced abnormal vessel. Denies any abdominal pain. Denies any melena, hematochezia, or hematemesis. Patient denies any other problems at this time. Denies any family history of Colon cancer or other Gastric ca. Patient agreed to planned procedure. METS: Climb a flight of stairs or walk up a hill (5.50 METs) Patient denies any CP/SOB with above activity. PAST MEDICAL HISTORY Diagnosis Date ADHD (attention deficit hyperactivity disorder) Asthma (HCC) Bipolar disorder (HCC) Depression [facility], history of suicide attempt Genital herpes 04/2013 GERD (gastroesophageal reflux disease) Polysubstance abuse ([facility]) meth, heroin. Oversoe 07/2019 [facility] Tobacco use disorder PAST SURGICAL HISTORY Procedure Laterality Date EXPLORATORY OF ABDOMEN 09/15/2024 aborted [facility]; Dr. Rodriguez HAND SURGERY HX Left 02/18/2018 FAMILY HISTORY Problem Relation Age of Onset COPD Father Cancer Father of lung cancer Cancer Paternal Grandfather of lung cancer Cancer Paternal Uncle of lung cancer Psychiatry Mother depression Diabetes Maternal Grandmother SOCIAL HISTORY: Social History Tobacco Use Smoking status: Every Day Current packs/day: 0.50 Average packs/day: 0.5 packs/day for 5.0 years (2.5 ttl pk-yrs) Types: Cigarettes Smokeless tobacco: Former Types: Chew Tobacco comments: started smoking 17yo Smokes 0.25 PPD since 11/2024 Smoked 1-2 PPD x 17 years Vaping Use Vaping status: Never Used Substance Use Topics Alcohol use: No Drug use: Not Currently Types: Heroin, Amphetamines Prior to Admission medications as of 01/23/25 0754 Medication Sig Last Dose Taking aspirin, enteric coated (ASPIRIN, ENTERIC COATED) 81 mg EC tablet Take 1 tablet by mouth every afternoon. 01/22/2025 Yes traZODone (DESYREL) 50 mg tablet Take 50 mg by mouth daily at bedtime. Past Week Yes ALBUTEROL INHALATION Inhale as instructed. Past Week Yes hydrOXYzine HCl (ATARAX) 50 mg tablet Take 1 tablet by mouth every 12 hours. omeprazole (PRILOSEC) 40 mg capsule Take 1 capsule by mouth every 12 hours. QUEtiapine XR (SEROQUEL XR) 50 mg Tb24 Take 50 mg by mouth daily at bedtime. Patient not taking: Reported on 10/23/2024 keTORolac (TORADOL) 10 mg tablet Take 1 tablet by mouth every 6 hours as needed. Patient not taking: Reported on 10/23/2024 Medication Comments documented by Obdulia Patel, NAZ on 06/10/2023 at 1405. June 10, 2023: Patient reports no changes to medications in the last 30 days. Obdulia Patel RN ALLERGIES Allergen Reactions Ibuprofen GI Upset Naproxen GI Upset Penicillins Other: See Comments Throat started to close up. COMPLETE REVIEW OF SYSTEMS: PAIN ASSESSMENT: Pain Pain Level: 0 Pain Assessment: Assessment Tool: Verbal (Numeric Rating or Visual Analog Scale) General: No weight loss, malaise or fevers. Neuro: No neurological symptoms or problems; no hx of seizure or stroke Respiratory: No history of current cough, wheezing, dyspnea, or recent pneumonia; no hx of COPD, orOSA, + smoker , + asthma, Cardiovascular: No history of HTN requiring medication, no history of chest pain, palpitations, CHF, AR, cardiac surgery or stents GI: see HPI : No history of dysuria, frequency or incontinence, stones or chronic kidney disease Endocrine: Negative for Diabetes or thyroid disease Hematology: No history of bleeding or clotting disorder. No history of hematological symptoms or problems. Oncology: No history of oncological symptoms or problems. Psych:+ Bipolar, depression, hx polysubstance abuse Musculoskeletal: Negative for joint pain or swelling, back pain or muscle pain. Skin: Negative for lesions, rash and itching. Objective PHYSICAL EXAM: MENTAL STATUS: alert, oriented to person, place and time HEENT: Normocephalic/atraumatic, pharynx clear LUNGS: CTA, no wheezing CARDIAC: RRR, no murmur ABDOMEN: Abdomen soft, non-tender, BS normal, No masses or organomegaly EXTREMITIES: 2+ pedal pulses, no pedal edema 01/23/25 0756 BP: 122/79 Pulse: 66 Resp: 11 Temp: 36.8 C (98.3 F) TempSrc: Temporal SpO2: 99% Weight: 98.4 kg (217 lb) Height: 182.9 cm (6') Body mass index is 29.43 kg/m . Patient has the following medical conditions which may affect jasiel-operative course Problem List Items Addressed This Visit Unprioritized Asthma (HCC) Current Assessment & Plan Pt uses rescue inhaler as needed - twice a month. Denies hospitalization or pneumonia in the last 6months. Gastroesophageal reflux disease Current Assessment & Plan EGD today Relevant Orders EGD - THERAPEUTIC, EUS, OR TUBE INTERVENTIONS Pre-op examination - Primary Current Assessment & Plan Medical conditions which may affect the perioperative course were address in today's visit. Tobacco use disorder Current Assessment & Plan started smoking 17yo Smokes 0.25 PPD since 11/2024 Smoked 1-2 PPD x 17 years Diagnosis: Gastroesophageal reflux disease, unspecified whether esophagitis present [K21.9] Planned Procedure: EGD The Following Tests/Procedures Have Been Initiated: IV start and Maintenance fluid for the procedure. ANESTHESIA FINDINGS: Significant Anesthesia Considerations: None FAMILY PROBLEMS WITH ANESTHESIA: no history of adverse anesthetic event Planned Anesthetic: MAC I spent a total of 20 minutes on the date of the service which included preparing to see the patient, [id number] patient care, completing clinical documentation, and performing a medically appropriate examination. Instructions Given to Patient: Patient given verbal preop instructions and voices comprehension and compliance. SIGNATURE: Loan Caraballo APRN.CNP PATIENT NAME: Amado Marinelli DATE: January 23, 2025 TIME: 7:28 AM PAGER/CONTACT #: [facility]05-16-2025 History and physical note* Laurafedericakenneth LoanANU.ANNEALING FURNACE TENDER - 01/23/2025 10:00 AM EDT HISTORY AND PHYSICAL EXAMINATION SERVICE DATE: 01/23/2025 SERVICE TIME: 7:55 AM PRIMARY CARE PHYSICIAN: Dacia Camejo MD REASON FOR VISIT: The reason for this visit is To perform a comprehensive review of the patients past medical history, assess their current health status and obtain any additional testing required based on anesthesia guidelines. To assess and identify potential anesthesia problems, particularly those that may suggest potential complications or contraindications to the planned procedure. The patient has the following: ACTIVE PROBLEM LIST Genital Herpes Adhd (Attention Deficit Hyperactivity Disorder) Depression Tobacco Use Disorder Hand Laceration Involving Tendon, Initial Encounter Hand Laceration Involving Tendon, Left, Subsequent Encounter Bipolar Disorder (Hcc) Pre-Op Examination Gastroesophageal Reflux Disease Asthma (Hcc) Subjective CHIEF COMPLAINT: Preoperative Examination HPI: Patient [facility] for the above procedure. Patient here for routine Upper GI Endoscopy screening. Patient reports N/V/, syncopal episodes after eating. Reports attempted robotic Nissenfundoplication on 09/15/24 which was aborted due to the finding of a large replaced abnormal vessel. Denies any abdominal pain. Denies any melena, hematochezia, or hematemesis. Patient denies any other problems at this time. Denies any family history of Colon cancer or other Gastric ca. Patient agreed to planned procedure. METS: Climb a flight of stairs or walk up a hill (5.50 METs) Patient denies any CP/SOB with above activity. PAST MEDICAL HISTORY Diagnosis Date ADHD (attention deficit hyperactivity disorder) Asthma (HCC) Bipolar disorder (HCC) Depression [facility], history of suicide attempt Genital herpes 04/2013 GERD (gastroesophageal reflux disease) Polysubstance abuse ([facility]) meth, heroin. Oversoe 07/2019 [facility] Tobacco use disorder PAST SURGICAL HISTORY Procedure Laterality Date EXPLORATORY OF ABDOMEN 09/15/2024 aborted [facility]; Dr. Rodriguez HAND SURGERY HX Left 02/18/2018 FAMILY HISTORY Problem Relation Age of Onset COPD Father Cancer Father of lung cancer Cancer Paternal Grandfather of lung cancer Cancer Paternal Uncle of lung cancer Psychiatry Mother depression Diabetes Maternal Grandmother SOCIAL HISTORY: Social History Tobacco Use Smoking status: Every Day Current packs/day: 0.50 Average packs/day: 0.5 packs/day for 5.0 years (2.5 ttl pk-yrs) Types: Cigarettes Smokeless tobacco: Former Types: Chew Tobacco comments: started smoking 17yo Smokes 0.25 PPD since 11/2024 Smoked 1-2 PPD x 17 years Vaping Use Vaping status: Never Used Substance Use Topics Alcohol use: No Drug use: Not Currently Types: Heroin, Amphetamines Prior to Admission medications as of 01/23/25 0754 Medication Sig Last Dose Taking aspirin, enteric coated (ASPIRIN, ENTERIC COATED) 81 mg EC tablet Take 1 tablet by mouth every afternoon. 01/22/2025 Yes traZODone (DESYREL) 50 mg tablet Take 50 mg by mouth daily at bedtime. Past Week Yes ALBUTEROL INHALATION Inhale as instructed. Past Week Yes hydrOXYzine HCl (ATARAX) 50 mg tablet Take 1 tablet by mouth every 12 hours. omeprazole (PRILOSEC) 40 mg capsule Take 1 capsule by mouth every 12 hours. QUEtiapine XR (SEROQUEL XR) 50 mg Tb24 Take 50 mg by mouth daily at bedtime. Patient not taking: Reported on 10/23/2024 keTORolac (TORADOL) 10 mg tablet Take 1 tablet by mouth every 6 hours as needed. Patient not taking: Reported on 10/23/2024 Medication Comments documented by Obdulia Patel RN on 06/10/2023 at 1405. June 10, 2023: Patient reports no changes to medications in the last 30 days. Obdulia Patel RN ALLERGIES Allergen Reactions Ibuprofen GI Upset Naproxen GI Upset Penicillins Other: See Comments Throat started to close up. COMPLETE REVIEW OF SYSTEMS: PAIN ASSESSMENT: Pain Pain Level: 0 Pain Assessment: Assessment Tool: Verbal (Numeric Rating or Visual Analog Scale) General: No weight loss, malaise or fevers. Neuro: No neurological symptoms or problems; no hx of seizure or stroke Respiratory: No history of current cough, wheezing, dyspnea, or recent pneumonia; no hx of COPD, orOSA, + smoker , + asthma, Cardiovascular: No history of HTN requiring medication, no history of chest pain, palpitations, CHF, AR, cardiac surgery or stents GI: see HPI : No history of dysuria, frequency or incontinence, stones or chronic kidney disease Endocrine: Negative for Diabetes or thyroid disease Hematology: No history of bleeding or clotting disorder. No history of hematological symptoms or problems. Oncology: No history of oncological symptoms or problems. Psych:+ Bipolar, depression, hx polysubstance abuse Musculoskeletal: Negative for joint pain or swelling, back pain or muscle pain. Skin: Negative for lesions, rash and itching. Objective PHYSICAL EXAM: MENTAL STATUS: alert, oriented to person, place and time HEENT: Normocephalic/atraumatic, pharynx clear LUNGS: CTA, no wheezing CARDIAC: RRR, no murmur ABDOMEN: Abdomen soft, non-tender, BS normal, No masses or organomegaly EXTREMITIES: 2+ pedal pulses, no pedal edema 01/23/25 0756 BP: 122/79 Pulse: 66 Resp: 11 Temp: 36.8 C (98.3 F) TempSrc: Temporal SpO2: 99% Weight: 98.4 kg (217 lb) Height: 182.9 cm (6') Body mass index is 29.43 kg/m . Patient has the following medical conditions which may affect jasiel-operative course Problem List Items Addressed This Visit Unprioritized Asthma (HCC) Current Assessment & Plan Pt uses rescue inhaler as needed - twice a month. Denies hospitalization or pneumonia in the last 6months. Gastroesophageal reflux disease Current Assessment & Plan EGD today Relevant Orders EGD - THERAPEUTIC, EUS, OR TUBE INTERVENTIONS Pre-op examination - Primary Current Assessment & Plan Medical conditions which may affect the perioperative course were address in today's visit. Tobacco use disorder Current Assessment & Plan started smoking 17yo Smokes 0.25 PPD since 11/2024 Smoked 1-2 PPD x 17 years Diagnosis: Gastroesophageal reflux disease, unspecified whether esophagitis present [K21.9] Planned Procedure: EGD The Following Tests/Procedures Have Been Initiated: IV start and Maintenance fluid for the procedure. ANESTHESIA FINDINGS: Significant Anesthesia Considerations: None FAMILY PROBLEMS WITH ANESTHESIA: no history of adverse anesthetic event Planned Anesthetic: MAC I spent a total of 20 minutes on the date of the service which included preparing to see the patient, [id number] patient care, completing clinical documentation, and performing a medically appropriate examination. Instructions Given to Patient: Patient given verbal preop instructions and voices comprehension and compliance. SIGNATURE: Loan Caraballo APRN.CNP PATIENT NAME: Amado Marinelli DATE: January 23, 2025 TIME: 7:28 AM PAGER/CONTACT #: [facility] NoteHNO ID: [id number] Author: CARRIE RAINEY RN Service: Nursing Author Type: Registered Nurse Type: Nursing Progress Note Filed: 01/23/2025 11:44 Note Text: Dr. Rivera at bedside but pt too sleepy Fuentes teaching given to pt and mom [facility]* Carrie Rainey RN - 01/23/2025 10:[address] Rivera at bedside but pt too sleepy Fuentes teaching given to pt and mom when pt more awake [facility]05-16-2025 Nurse Note* Carrie Rainey RN - 01/23/2025 10:[address] Rivera at bedside but pt too sleepy Fuentes teaching given to pt and mom when pt more awake [facility] Telephone encounter Note * Telephone Encounter - Parris Marin LPN - 01/09/2025 2:35 PM EDT Patient called in stating that he is having horrible issues with throwing up stomach acid. Patient stated that he starts the day eating 3 hard boiled eggs for breakfast as well as for lunch. Patient also has been drinking the previously suggested by Alida CHILDS Boost Breeze and Ensure clear. Patient states he is consuming large quantities of tums to also help with stomach acid and the suggested gaviscon is not helping. Patient states the burning is intense. I do not have any availability to move his Fuentes mano up on the calendar. Patient asking what else he can do. Denies diarrhea or constipation, fever or chills. [facility] Work Phone: [phone]) 264-600205-02-2025 Miscellaneous Notes* Telephone Encounter - Parris Marin LPN - 01/09/2025 2:35 PM EDT Patient called in stating that he is having horrible issues with throwing up stomach acid. Patient stated that he starts the day eating 3 hard boiled eggs for breakfast as well as for lunch. Patient also has been drinking the previously suggested by Alida CHILDS Boost Breeze and Ensure clear. Patient states he is consuming large quantities of tums to also help with stomach acid and the suggested gaviscon is not helping. Patient states the burning is intense. I do not have any availability to move his Fuentes mano up on the calendar. Patient asking what else he can do. Denies diarrhea or constipation, fever or chills. [facility] Telephone encounter Note * Telephone Encounter - Cara Escalante - 01/09/2025 2:30 PM EDT VM received requesting a call cack. Unable to LVM for patient - VM not set up. MyChart message sent to patient. [facility]05-02-2025 Miscellaneous Notes* Telephone Encounter - Cara Escalante - 01/09/2025 2:30 PM EDT VM received requesting a call cack. Unable to LVM for patient - VM not set up. MyChart message sent to patient. [facility] Discharge summary [facility] Medical Records Department [address] [place] [address] Emergency Department Summary 12/27/24 MR#: [id number] Acct: [id number] Name: AMADO MARINELLI Rep #:[id number] : 1990 34 From: Rupert Hernández MD PCP: Jennifer Mathur Sang, DITCHING MACHINE ENGINEER-C Statu s:REG ER Location: ED HPI History of Present Illness Chief Complaint: Syncope Informant: patient and spouse/S.O. Narrative Narrative: 34-year-old male presents for recurrent syncope. He states 3 days ago he was eating and became nauseated and vomited, which happens frequently to him due to reflux from what he thinks, but the other day he vomited and immediately passed out then resolved, fell and hit his head on the bathroom door.When he woke up he had a terrible headache, he went to a different hospital and he states they did a CT scan and told him it was negative and sent him home and told him to take Tylenol and Benadryl. He states has been taking Benadryl and he does not know why they told him to take Benadryl except for was for the headache. Now hehas had multiple recurrent syncopal episodes randomly with no prodromal symptomsexcept for lightheadedness. He denies any chest discomfort, dyspnea, palpitations, rapid heartbeat, abdominal pain. However an hour ago when he lasthad this occur, he was eating, no nausea or vomiting, and passed out. When he came to, the significant other states he drag his right foot for4 or 5 minutes and then went back to normal according to the patient. He has no complaints right now Except for the headache. He states the headaches been getting worse. He denies any recurrent head injuries that he knows of. He states he has an abnormal artery across his abdomen that complicated his surgery in September todo a Maxwell, so he was sent to a specialist. Takes refluxmedication but no other daily medications prior to seeing the ER a couple days ago. [facility] Medical History Gastric reflux Substance abuse Bipolar disorder Smoker Asthma Leg cramps Acid reflux Heart disease COPD (chronic obstructive pulmonary disease) Home Medications ?Medication ?Instructions ?Recorded ?Last Taken ?Type aspirin 81 mg tablet,delayed 81 mg PO QDAY 06/10/24 History release Allergy/AdvReac Type Severity Reaction Status Date / Time Penicillins Allergy Hives Verified 12/27/24 21:48 ibuprofen AdvReac Nausea Verified 12/27/24 21:48 Surgical History History of esophagogastroduodenoscopy (EGD) Hx of hand surgery Social History Smoking Status: Light Smoker (<10/day) alcohol intake: current substance use type: heroin and methamphetamine ROS ROS ED Constitutional Constitutional ED: Denies chills or fever(s) Eyes Eyes: Denies change in vision or diplopia ENT ENT ED: Denies rhinorrhea or sore throat Cardiovascular Cardiovascular: Reports syncope; Denies chest pain or palpitations Respiratory/Chest Respiratory/Chest: Denies cough or dyspnea Gastrointestinal Gastrointestinal: Denies abdominal pain, diarrhea, nausea or vomiting Genitourinary Genitourinary ED: Denies dysuria or hematuria Musculoskeletal Musculoskeletal: Denies back pain or neck pain Integumentary Denies abscess or rash Neurologic Neurologic: Reports headache(s) and other Details: transient RLE weakness, see HPI ; Denies paresthesias Psychiatric Psychiatric: Denies anxiety or suicidal thoughts EXAM Physical Exam Const Vital Signs: 12/27/24 21:45 12/27/24 21:57 12/27/24 21:57 Temperature 98.3 F Temperature Source Temporal Pulse Rate 88 82 Pulse Rate [Lying] Pulse Rate [Sitting (for 1 minute prior to obtaining)] Pulse Rate [Standing (for 1 minute prior to obtaining)] Respiratory Rate 16 23 H Respiratory Effort Normal Respiratory Pattern Normal Blood Pressure 147/90 H 135/92 H Blood Pressure [Lying] Blood Pressure [Sitting (for 1 minute prior to obtaining)] Blood Pressure [Standing (for 1 minute prior to obtaining)] Blood Pressure Mean 109 106 Blood Pressure Mean [Lying] Blood Pressure Mean [Sitting (for 1 minute prior to obtaining)] Blood Pressure Mean [Standing (for 1 minute prior to obtaining)] Pulse Ox 98 98 Oxygen Delivery Method Room Air Room Air 12/27/24 22:16 12/27/24 22:43 12/27/24 22:50 Temperature Temperature Source Pulse Rate 64 Pulse Rate [Lying] 74 Pulse Rate [Sitting (for 1 minute prior to obtaining)] 61 Pulse Rate [Standing (for 1 minute prior to obtaining)] 105 H Respiratory Rate 18 Respiratory Effort Respiratory Pattern Blood Pressure 138/101 H Blood Pressure [Lying] 136/64 H Blood Pressure [Sitting (for 1 minute prior to obtaining)] 136/96 H Blood Pressure [Standing (for 1 minute prior to obtaining)] 138/101 H Blood Pressure Mean 113 Blood Pressure Mean [Lying] 88 Blood Pressure Mean [Sitting (for 1 minute prior to obtaining)] 109 Blood Pressure Mean [Standing (for 1 minute prior to obtaining)] 113 Pulse Ox 98 Oxygen Delivery Method Room Air Room Air 12/27/24 23:34 12/27/24 23:45 12/27/24 23:58 Temperature Temperature Source Pulse Rate 76 69 Pulse Rate [Lying] 85 Pulse Rate [Sitting (for 1 minute prior to obtaining)] 59 L Pulse Rate [Standing (for 1 minute prior to obtaining)] 59 L Respiratory Rate 16 16 Respiratory Effort Respiratory Pattern Blood Pressure 120/82 H Blood Pressure [Lying] 129/93 H Blood Pressure [Sitting (for 1 minute prior to obtaining)] 127/94 H Blood Pressure [Standing (for 1 minute prior to obtaining)] 130/82 H Blood Pressure Mean 96 Blood Pressure Mean [Lying] 105 Blood Pressure Mean [Sitting (for 1 minute prior to obtaining)] 105 Blood Pressure Mean [Standing (for 1 minute prior to obtaining)] 98 Pulse Ox 96 97 Oxygen Delivery Method 12/28/24 00:00 12/28/24 00:01 12/28/24 00:03 Temperature Temperature Source Pulse Rate 67 61 47 L Pulse Rate [Lying] Pulse Rate [Sitting (for 1 minute prior to obtaining)] Pulse Rate [Standing (for 1 minute prior to obtaining)] Respiratory Rate 12 18 21 H Respiratory Effort Respiratory Pattern Blood Pressure 130/82 H 127/94 H 129/93 H Blood Pressure [Lying] Blood Pressure [Sitting (for 1 minute prior to obtaining)] Blood Pressure [Standing (for 1 minute prior to obtaining)] Blood Pressure Mean 96 105 102 Blood Pressure Mean [Lying] Blood Pressure Mean [Sitting (for 1 minute prior to obtaining)] Blood Pressure Mean [Standing (for 1 minute prior to obtaining)] Pulse Ox 99 99 99 Oxygen Delivery Method 12/28/24 00:09 12/28/24 00:15 12/28/24 00:30 Temperature Temperature Source Pulse Rate 51 L 55 L Pulse Rate [Lying] Pulse Rate [Sitting (for 1 minute prior to obtaining)] Pulse Rate [Standing (for 1 minute prior to obtaining)] Respiratory Rate 16 12 Respiratory Effort Respiratory Pattern Blood Pressure 129/93 H 137/107 H 124/96 H Blood Pressure [Lying] Blood Pressure [Sitting (for 1 minute prior to obtaining)] Blood Pressure [Standing (for 1 minute prior to obtaining)] Blood Pressure Mean 105 117 103 Blood Pressure Mean [Lying] Blood Pressure Mean [Sitting (for 1 minute prior to obtaining)] Blood Pressure Mean [Standing (for 1 minute prior to obtaining)] Pulse Ox 94 99 Oxygen Delivery Method Room Air 12/28/24 00:45 12/28/24 01:00 Temperature Temperature Source Pulse Rate 64 62 Pulse Rate [Lying] Pulse Rate [Sitting (for 1 minute prior to obtaining)] Pulse Rate [Standing (for 1 minute prior to obtaining)] Respiratory Rate 18 10 L Respiratory Effort Respiratory Pattern Blood Pressure 128/102 H Blood Pressure [Lying] Blood Pressure [Sitting (for 1 minute prior to obtaining)] Blood Pressure [Standing (for 1 minute prior to obtaining)] Blood Pressure Mean 111 Blood Pressure Mean [Lying] Blood Pressure Mean [Sitting (for 1 minute prior to obtaining)] Blood Pressure Mean [Standing (for 1 minute prior to obtaining)] Pulse Ox 98 99 Oxygen Delivery Method Positive well nourished and well developed General Appearance ED: well developed and NAD HEENT Reports moist mucous membranes normocephalic and atraumatic Eyes PERRL and EOMs intact bilaterally Neck full ROM and supple Resp normal respiratory effort and clear to auscultation bilaterally Cardio regular rate, regular rhythm and no murmurs GI non-tender and non-distended Auscultation: normoactive bowel sounds Palpation: soft Back/Spine no CVA tenderness General Back: other FROM Extremity normal to inspection General Extremety ED: Negative for edema, pulses abnormal or tenderness General Extremity: Negative for edema or pulses abnormal Neuro oriented x3, CN's II-XII intact bilaterally and no sensory deficits noted Sensorium / Orientation: awake and alert Motor Exam: strength 5/5 throughout Skin no rashes or lesions noted and no wounds MDM MDM MDM Narrative Medical decision making narrative: With complaints of a transient focal neurologic deficit and worsening headache after hitting his head, understanding that he already had a CT at another hospital, I performed another CT of the head in order to rule out growing small subdural hematoma, subarachnoid hemorrhage, or other explanation in the PHYSIOLOGY TEACHER of the focal deficit. My interpretation the scan is normal. His EKG and his rhythm are normal. His vital signs are normal we did orthostatics they are positive, he stood up and felt lightheaded/near syncopal and his pulse went from60 to just over 100 but blood pressure normal. His labs arenormal, including troponin and D-dimer ruling out pulmonary embolus. He is not anemic. I discussed the orthostasis with him he states he drinks plenty of fluids all day. His renal function is normal he is not necessarily prerenal, I gave him a liter of fluid and then repeated orthostatics, they were negative although he still felt lightheaded when he stood up, but not as bad according to staff. We did a repeat troponin that was negative, however the patient decided to elope due to waiting before he was discharged. He said he was tired of waiting according to staff. 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 However, before this, I had already discussed withthe patient and significant other about the possibility that this could be cardiac and that an event monitor may be indicated, I think this is less likely to be needed since he is orthostatic, buthe may need to follow-up with cardiology and have a tilt table, however he elected not to stay for that discussion and told staff specifically that he was not waiting for his paperwork. History & Record Review Additional record(s) reviewed:: Prior outpatient record (surgery note/encounter from 09/2024) Lab Data Attestation: I reviewed the patient's lab results. Labs: Laboratory Results - last 24 hr 12/27/24 12/27/24 21:55 23:55 WBC 6.3 RBC 5.71 Hgb 16.3 Hct 47.1 MCV 82.5 MCH 28.5 MCHC 34.6 RDW Std Deviation 39.5 RDW Coeff of Marques 13.3 Plt Count 255 MPV 10.7 Immature Gran % (Auto) 0.200 Neut % (Auto) 41.9 L Lymph % (Auto) 44.3 H Harper % (Auto) 9.0 Eos % (Auto) 3.5 Baso % (Auto) 1.1 H Absolute Neuts (auto) 2.6 Absolute Lymphs (auto) 2.79 Nucleated RBC % 0 D-Dimer Quant (PE/DVT) 0.27 Sodium 139 Potassium 3.8 Chloride 104 Carbon Dioxide 22.3 Anion Gap 12 BUN 14 Creatinine 0.96 Estim Creat Clear Calc 129.00 Est GFR (MDRD) Non-Af 107 BUN/Creatinine Ratio 14.1 Glucose 105 H Calcium 9.6 Troponin T High Sens < 6 Troponin T Hi Sens 2 Hr < 6 Radiography Diagnostic Testing: Clinical Impression(s) from Imaging Studies Brain CT 12/27/24 22:12 IMPRESSION: NO ACUTE FINDINGS Reading [facility] Rhythm Strip Rhythm Strip: Sinus arrhythmia Rate: 77 Ectopy: None EKG Initial EKG: Attestation: I personally reviewed and interpreted this EKG as follows: Interpretation: Sinus Rhythm and No Acute Injury Pattern Comments: Nml axis & intervals; nml EKG Discharge Plan Triage Chief Complaint: Syncope ED Provider: Rupert Hernández Dx/Rx/DC Orders Clinical Impression: Recurrent syncope, Orthostatic dizziness Instructions: ED Hypotension, Orthostatic Prescriptions: No Action aspirin 81 mg tablet,delayed release (DR/EC) 81 mg PO QDAY Primary Care Provider: Jennifer Mathur Sang Referrals: Myah Mahoney MD [Med Staff - Active Staff] - As soon as possible Print Language: Afghan Disposition Disposition: Home, Self Care What to do if you have Problems For any increased pain, shortness of breath, bleeding, nausea or vomiting, chestpain, or any unexpected problems, contact your Primary Care Provider. Call [facility] ([phone]) or report tothe closest Emergency Room. Call 911 if necessary. 12/28/24 0123 Cosigner Signature (if applicable): CC: [facility] DITCHING MACHINE ENGINEER-C Jennifer Mathur ~ Signed [facility]04-19-2025 Radiology Diagnostic study note [facility] Imaging Services [address] [place], [place] [id number] Brain/Head without Contrast MR#: [id number] Acct: [id number] Name: AMADO MARINELLI Rep #: [id number] : 1990 M 34 From: Amador Seay DO PCP: MAYCOL Jenkins, DAILY Status: REG ER Study:Brain/Head without Contrast Date of Exa m: 12/27/24 Exam# [id number] Ordering Dr: Tiffanie Hernández MD PROCEDURE: BRAIN/HEAD WITHOUT CONTRAST 12/27/2024 REASON FOR EXAM: HEADACHE, TRAUMA, RECURRENT SYNCOPE, RLE WEAK TECHNIQUE: Head CT without intravenous contrast. Coronal and Sagittal reconstruction serieswere provided. One or more dose reduction techniques were used (e.g., Automated exposure control, adjustment of the mA and/or kV according to patient size, use of iterative reconstruction technique. RADIATION DOSE SUMMARY: CTDlvol: 45 mGy DLP: 846 mGycm COMPARISON: None FINDINGS: Brain: Within normal limits for age CSF Spaces: Normal Sinuses/Mastoids: Clear at visualized levels Bones: Unremarkable CT/Brain/Head without Contrast IMPRESSION: NO ACUTE FINDINGS Reading Location: [facility] CC: MAYCOL Mathur; Dr. Rupert Hernández MD ~ Book Canvasser: Signed [facility]04-19-2025 Discharge summary Author Rupert Hernández [facility] Note Date/Time December 28, 2024 1:2 3am [facility] Medical Records Department [address] [place] [id number] Emergency Department Summary 12/27/24 MR#: [id number] Acct: [id number] Name: AMADO MARINELLI VANDANA Rep #:[id number] : 1990 34 From: Rupert Hernández MD PCP: MAYCOL Jenkins, DAILY Statu s:REG ER Location: ED HPI History of Present Illness Chief Complaint: Syncope Informant: patient and spouse/S.O. Narrative Narrative: 34-year-old male presents for recurrent syncope. He states 3 days ago he was eating and became nauseated and vomited, which happens frequently to him due to reflux from what he thinks, but the other day he vomited and immediately passed out then resolved, fell and hit his head on the bathroom door. When he woke up he had a terrible headache, he went to a different hospital and he states they did a CT scan and told him it was negative and sent him home and told him to take Tylenol and Benadryl. He states has been taking Benadryl and he does not know why they told him to take Benadryl except for was for the headache. Now hehas had multiple recurrent syncopal episodes randomly with no prodromal symptomsexcept for lightheadedness. He denies any chest discomfort, dyspnea, palpitations, rapid heartbeat, abdominal pain. However an hour ago when he lasthad this occur, he was eating, no nausea or vomiting, and passed out. When he came to, the significant other states he drag his right foot for 4 or 5 minutes and then went back to normal according to the patient. He has no complaints right now Except for the headache. He states the headaches been getting worse. He denies any recurrent head injuries that he knows of. 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 Takes refluxmedication but no other daily medications prior to seeing the ER a couple days ago. [facility] Medical History Gastric reflux Substance abuse Bipolar disorder Smoker Asthma Leg cramps Acid reflux Heart disease COPD (chronic obstructive pulmonary disease) Home Medications ?Medication ?Instructions ?Recorded ?Last Taken ?Type aspirin 81 mg tablet,delayed 81 mg PO QDAY 06/10/24 History release Allergy/AdvReac Type Severity Reaction Status Date / Time Penicillins Allergy Hives Verified 12/27/24 21:48 ibuprofen AdvReac Nausea Verified 12/27/24 21:48 Surgical History History of esophagogastroduodenoscopy (EGD) Hx of hand surgery Social History Smoking Status: Light Smoker (<10/day) alcohol intake: current substance use type: heroin and methamphetamine ROS ROS ED Constitutional Constitutional ED: Denies chills or fever(s) Eyes Eyes: Denies change in vision or diplopia ENT ENT ED: Denies rhinorrhea or sore throat Cardiovascular Cardiovascular: Reports syncope; Denies chest pain or palpitations Respiratory/Chest Respiratory/Chest: Denies cough or dyspnea Gastrointestinal Gastrointestinal: Denies abdominal pain, diarrhea, nausea or vomiting Genitourinary Genitourinary ED: Denies dysuria or hematuria Musculoskeletal Musculoskeletal: Denies back pain or neck pain Integumentary Denies abscess or rash Neurologic Neurologic: Reports headache(s) and other Details: transient RLE weakness, see HPI ; Denies paresthesias Psychiatric Psychiatric: Denies anxiety or suicidal thoughts EXAM Physical Exam Const Vital Signs: 12/27/24 21:45 12/27/24 21:57 12/27/24 21:57 Temperature 98.3 F Temperature Source Temporal Pulse Rate 88 82 Pulse Rate [Lying] Pulse Rate [Sitting (for 1 minute prior to obtaining)] Pulse Rate [Standing (for 1 minute prior to obtaining)] Respiratory Rate 16 23 H Respiratory Effort Normal Respiratory Pattern Normal Blood Pressure 147/90 H 135/92 H Blood Pressure [Lying] Blood Pressure [Sitting (for 1 minute prior to obtaining)] Blood Pressure [Standing (for 1 minute prior to obtaining)] Blood Pressure Mean 109 106 Blood Pressure Mean [Lying] Blood Pressure Mean [Sitting (for 1 minute prior to obtaining)] Blood Pressure Mean [Standing (for 1 minute prior to obtaining)] Pulse Ox 98 98 Oxygen Delivery Method Room Air Room Air 12/27/24 22:16 12/27/24 22:43 12/27/24 22:50 Temperature Temperature Source Pulse Rate 64 Pulse Rate [Lying] 74 Pulse Rate [Sitting (for 1 minute prior to obtaining)] 61 Pulse Rate [Standing (for 1 minute prior to obtaining)] 105 H Respiratory Rate 18 Respiratory Effort Respiratory Pattern Blood Pressure 138/101 H Blood Pressure [Lying] 136/64 H Blood Pressure [Sitting (for 1 minute prior to obtaining)] 136/96 H Blood Pressure [Standing (for 1 minute prior to obtaining)] 138/101 H Blood Pressure Mean 113 Blood Pressure Mean [Lying] 88 Blood Pressure Mean [Sitting (for 1 minute prior to obtaining)] 109 Blood Pressure Mean [Standing (for 1 minute prior to obtaining)] 113 Pulse Ox 98 Oxygen Delivery Method Room Air Room Air 12/27/24 23:34 12/27/24 23:45 04/19/25 23:58 Temperature Temperature Source Pulse Rate 76 69 Pulse Rate [Lying] 85 Pulse Rate [Sitting (for 1 minute prior to obtaining)] 59 L Pulse Rate [Standing (for 1 minute prior to obtaining)] 59 L Respiratory Rate 16 16 Respiratory Effort Respiratory Pattern Blood Pressure 120/82 H Blood Pressure [Lying] 129/93 H Blood Pressure [Sitting (for 1 minute prior to obtaining)] 127/94 H Blood Pressure [Standing (for 1 minute prior to obtaining)] 130/82 H Blood Pressure Mean 96 Blood Pressure Mean [Lying] 105 Blood Pressure Mean [Sitting (for 1 minute prior to obtaining)] 105 Blood Pressure Mean [Standing (for 1 minute prior to obtaining)] 98 Pulse Ox 96 97 Oxygen Delivery Method 12/28/24 00:00 12/28/24 00:01 12/28/24 00:03 Temperature Temperature Source Pulse Rate 67 61 47 L Pulse Rate [Lying] Pulse Rate [Sitting (for 1 minute prior to obtaining)] Pulse Rate [Standing (for 1 minute prior to obtaining)] Respiratory Rate 12 18 21 H Respiratory Effort Respiratory Pattern Blood Pressure 130/82 H 127/94 H 129/93 H Blood Pressure [Lying] Blood Pressure [Sitting (for 1 minute prior to obtaining)] Blood Pressure [Standing (for 1 minute prior to obtaining)] Blood Pressure Mean 96 105 102 Blood Pressure Mean [Lying] Blood Pressure Mean [Sitting (for 1 minute prior to obtaining)] Blood Pressure Mean [Standing (for 1 minute prior to obtaining)] Pulse Ox 99 99 99 Oxygen Delivery Method 12/28/24 00:09 12/28/24 00:15 12/28/24 00:30 Temperature Temperature Source Pulse Rate 51 L 55 L Pulse Rate [Lying] Pulse Rate [Sitting (for 1 minute prior to obtaining)] Pulse Rate [Standing (for 1 minute prior to obtaining)] Respiratory Rate 16 12 Respiratory Effort Respiratory Pattern Blood Pressure 129/93 H 137/107 H 124/96 H Blood Pressure [Lying] Blood Pressure [Sitting (for 1 minute prior to obtaining)] Blood Pressure [Standing (for 1 minute prior to obtaining)] Blood Pressure Mean 105 117 103 Blood Pressure Mean [Lying] Blood Pressure Mean [Sitting (for 1 minute prior to obtaining)] Blood Pressure Mean [Standing (for 1 minute prior to obtaining)] Pulse Ox 94 99 Oxygen Delivery Method Room Air 12/28/24 00:45 12/28/24 01:00 Temperature Temperature Source Pulse Rate 64 62 Pulse Rate [Lying] Pulse Rate [Sitting (for 1 minute prior to obtaining)] Pulse Rate [Standing (for 1 minute prior to obtaining)] Respiratory Rate 18 10 L Respiratory Effort Respiratory Pattern Blood Pressure 128/102 H Blood Pressure [Lying] Blood Pressure [Sitting (for 1 minute prior to obtaining)] Blood Pressure [Standing (for 1 minute prior to obtaining)] Blood Pressure Mean 111 Blood Pressure Mean [Lying] Blood Pressure Mean [Sitting (for 1 minute prior to obtaining)] Blood Pressure Mean [Standing (for 1 minute prior to obtaining)] Pulse Ox 98 99 Oxygen Delivery Method Positive well nourished and well developed General Appearance ED: well developed and NAD HEENT Reports moist mucous membranes normocephalic and atraumatic Eyes PERRL and EOMs intact bilaterally Neck full ROM and supple Resp normal respiratory effort and clear to auscultation bilaterally Cardio regular rate, regular rhythm and no murmurs GI non-tender and non-distended Auscultation: normoactive bowel sounds Palpation: soft Back/Spine no CVA tenderness General Back: other FROM Extremity normal to inspection General Extremety ED: Negative for edema, pulses abnormal or tenderness General Extremity: Negative for edema or pulses abnormal Neuro oriented x3, CN's II-XII intact bilaterally and no sensory deficits noted Sensorium / Orientation: awake and alert Motor Exam: strength 5/5 throughout Skin no rashes or lesions noted and no wounds MDM MDM MDM Narrative Medical decision making narrative: With complaints of a transient focal neurologic deficit and worsening headache after hitting his head, understanding that he already had a CT at another hospital, I performed another CT of the head in order to rule out growing small subdural hematoma, subarachnoid hemorrhage, or other explanation in the PHYSIOLOGY TEACHER of the focal deficit. My interpretation the scan is normal. His EKG and his rhythm are normal. His vital signs are normal we did orthostatics they are positive, he stood up and felt lightheaded/near syncopal and his pulse went from60 to just over 100 but blood pressure normal. His labs are normal, including troponin and D-dimer ruling out pulmonary embolus. He is not anemic. I discussed the orthostasis with him he states he drinks plenty of fluids all day. His renal function is normal he is not necessarily prerenal, I gave him a liter of fluid and then repeated orthostatics, they were negative although he still felt lightheaded when he stood up, but not as bad according to staff. We did a repeat troponin that was negative, however the patient decided to elope due to waiting before he was discharged. He said he was tired of waiting according to staff. 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 However, before this, I had already discussed withthe patient and significant other about the possibility that this could be cardiac and that an event monitor may be indicated, I think this is less likely to be needed since he is orthostatic, but he may need to follow-up with cardiology and have a tilt table, however he elected not to stay for that discussion and told staff specifically that he was not waiting for his paperwork. History & Record Review Additional record(s) reviewed:: Prior outpatient record (surgery note/encounter from 09/2024) Lab Data Attestation: I reviewed the patient's lab results. Labs: Laboratory Results - last 24 hr 12/27/24 12/27/24 21:55 23:55 WBC 6.3 RBC 5.71 Hgb 16.3 Hct 47.1 MCV 82.5 MCH 28.5 MCHC 34.6 RDW Std Deviation 39.5 RDW Coeff of Marques 13.3 Plt Count 255 MPV 10.7 Immature Gran % (Auto) 0.200 Neut % (Auto) 41.9 L Lymph % (Auto) 44.3 H Harper % (Auto) 9.0 Eos % (Auto) 3.5 Baso % (Auto) 1.1 H Absolute Neuts (auto) 2.6 Absolute Lymphs (auto) 2.79 Nucleated RBC % 0 D-Dimer Quant (PE/DVT) 0.27 Sodium 139 Potassium 3.8 Chloride 104 Carbon Dioxide 22.3 Anion Gap 12 BUN 14 Creatinine 0.96 Estim Creat Clear Calc 129.00 Est GFR (MDRD) Non-Af 107 BUN/Creatinine Ratio 14.1 Glucose 105 H Calcium 9.6 Troponin T High Sens < 6 Troponin T Hi Sens 2 Hr < 6 Radiography Diagnostic Testing: Clinical Impression(s) from Imaging Studies Brain CT 12/27/24 22:12 IMPRESSION: NO ACUTE FINDINGS [facility] Rhythm Strip Rhythm Strip: Sinus arrhythmia Rate: 77 Ectopy: None EKG Initial EKG: Attestation: I personally reviewed and interpreted this EKG as follows: Interpretation: Sinus Rhythm and No Acute Injury Pattern Comments: Nml axis & intervals; nml EKG Discharge Plan Triage Chief Complaint: Syncope ED Provider: Rupert Hernández Dx/Rx/DC Orders Clinical Impression: Recurrent syncope, Orthostatic dizziness Instructions: ED Hypotension, Orthostatic Prescriptions: No Action aspirin 81 mg tablet,delayed release (DR/EC) 81 mg PO QDAY Primary Care Provider: Jennifer Mathur [facility] Referrals: Myah Mahoney MD [Med Staff - Active Staff] - As soon as possible Print Language: Afghan Disposition Disposition: Home, Self Care What to do if you have Problems For any increased pain, shortness of breath, bleeding, nausea or vomiting, chestpain, or any unexpected problems, contact your Primary Care Provider. Call [facility] ([phone]) or report to the closest Emergency Room. Call 911 if necessary. 12/28/24 0123 <Electronically signed by Rupert Hernández MD> Cosigner Signature (if applicable): CC: [facility] DITCHING MACHINE ENGINEER-C Jennifer Mathur ~ Signed [facility] Work Phone: [phone]) 778-523603-11-2025 Telephone encounter Note* Telephone Encounter - Bipin Wei RN - 2024 2:46 PM EDT I called patient as he left another phone message for Dr. Rivera. Patient was very excited/agitatedwhen I called. After listening to him he calmed down. Patient stated he started having vomiting & dry heaves on 11/13/34 after eating eggs and 2 slices of toast for dinner. Patient states he has not been able to keep any solid food down since then, just liquids, which sometimes he does vomit (vomiting is intermittent). Patient is unable to tell me what color his urine is as they use blue coloring in his toilet bowl. Patient stated he vomited last night. I woke up in the middle of the night and brought up 1/2 small bottle of yellow liquid and it pablo. After a few more questions we came upwith a plan: ~continue taking his omeprazole twice a day ~suggested patient purchase Gaviscon liquid to take PRN at night if he brings up liquid at night like he did last night ~Patient currently eats dinner at 7-7:30 pm and bedtime is between 10-11 pm. Patient sleeps on 4 pillows--continue ~eliminate toast (patient states it causes burning), coffee and OJ from his diet. ~Patient to remain on liquid only diet for the next few days; patient agreed. If patient is tolerating liquids without vomiting/dry heaving, then he can move to soft liquids such as yogurt, pudding and creamed soups. ~I recommended that patient purchase some clear protein drinks like Boost Breeze, Ensure Clear and Protein 20 to give him some nutrition in the next few days. ~Patient may continue to drink Gatorade, water and chicken broth. Patient was agreeable to this plan. He verbalized his upcoming testing and dates. Patient denied questions at the end of the call. I told him I will share all this information with Dr. Rivera. Patient thanked me for calling. Bipin Wei RN [facility]03-11-2025 Miscellaneous Notes* Telephone Encounter - Bipin Wei RN - 2024 2:46 PM EDT I called patient as he left another phone message for Dr. Rivera. Patient was very excited/agitatedwhen I called. After listening to him he calmed down. Patient stated he started having vomiting & dry heaves on 11/13/34 after eating eggs and 2 slices of toast for dinner. Patient states he has not been able to keep any solid food down since then, just liquids, which sometimes he does vomit (vomiting is intermittent). Patient is unable to tell me what color his urine is as they use blue coloring in his toilet bowl. Patient stated he vomited last night. I woke up in the middle of the night and brought up 1/2 small bottle of yellow liquid and it pablo. After a few more questions we came upwith a plan: ~continue taking his omeprazole twice a day ~suggested patient purchase Gaviscon liquid to take PRN at night if he brings up liquid at night like he did last night ~Patient currently eats dinner at 7-7:30 pm and bedtime is between 10-11 pm. Patient sleeps on 4 pillows--continue ~eliminate toast (patient states it causes burning), coffee and OJ from his diet. ~Patient to remain on liquid only diet for the next few days; patient agreed. If patient is tolerating liquids without vomiting/dry heaving, then he can move to soft liquids such as yogurt, pudding and creamed soups. ~I recommended that patient purchase some clear protein drinks like Boost Breeze, Ensure Clear and Protein 20 to give him some nutrition in the next few days. ~Patient may continue to drink Gatorade, water and chicken broth. Patient was agreeable to this plan. He verbalized his upcoming testing and dates. Patient denied questions at the end of the call. I told him I will share all this information with Dr. Rivera. Patient thanked me for calling. Bipin Wei RN [facility] Telephone encounter Note * Telephone Encounter - Tex Hartman RN - 11/17/2024 10:29 AM EDT Pt called in with C/O increased nausea and heartburn x 5 days post gastric emptying study on 11/12/2024. Per pt, and now feels like he cannot keep anything down. He states he is able to drink plenty of fluids without nausea, but cannot tolerate eating anything. He states he is taking his Omeprazoleand Tums for the heartburn, does not have anything for nausea. Pt denies fevers, but states he keeps getting hot/cold flashes. He states he had diarrhea for 2 days after the gastric emptying study, but is having normal stools now. Pt reports that he feels like he is unable to swallow any food, as if it remains in his throat. He did go to the urgent care d/t symptoms on 11/14/2024. Pt reports thatthe urgent care told him he may have a stomach bug and to drink broth. Pt reports drinking broth,but symptoms are still present. Pt requests for Dr. Rivera to advise next steps, as he has an upcoming scope. Advised pt to cont to stay hydrated and that I will forward concerns to BRANDON RN and Dr. Rivera. Advised pt that we will reach back out with further instructions. Pt understands and agrees toplan. Tex Hartman RN, BSN Bariatric Rn Lactation [facility]03-10-2025 Miscellaneous Notes* Telephone Encounter - Tex Hartman RN - 11/17/2024 10:29 AM EDT Pt called in with C/O increased nausea and heartburn x 5 days post gastric emptying study on 11/12/2024. Per pt, and now feels like he cannot keep anything down. He states he is able to drink plenty of fluids without nausea, but cannot tolerate eating anything. He states he is taking his Omeprazoleand Tums for the heartburn, does not have anything for nausea. Pt denies fevers, but states he keeps getting hot/cold flashes. He states he had diarrhea for 2 days after the gastric emptying study, but is having normal stools now. Pt reports that he feels like he is unable to swallow any food, as if it remains in his throat. He did go to the urgent care d/t symptoms on 11/14/2024. Pt reports thatthe urgent care told him he may have a stomach bug and to drink broth. Pt reports drinking broth,but symptoms are still present. Pt requests for Dr. Rivera to advise next steps, as he has an upcoming scope. Advised pt to cont to stay hydrated and that I will forward concerns to BRANDON RN and Dr. Rivera. Advised pt that we will reach back out with further instructions. Pt understands and agrees toplan. Tex Hartman RN, BSN Bariatric Rn Lactation [facility] History of Present illness Narrative* Lissa Wiggins, RT(R) - 11/12/2024 8:00 AM EST RADIOLOGY SERVICE PROGRESS NOTE SERVICE DATE: 11/12/2024 SERVICE TIME: 8:13 AM PATIENT IDENTITY VERIFICATION COMPLETED USING TWO (2) STANDARD IDENTIFIERS: Name and Date of confirmed by patient verbally and Name and Date of confirmed by identification band FALL SCREENING: Has the patient had 2 falls in the last year or 1 fall with injury or currently using an Ambulatory Assistive Device (Walker, Cane, Wheelchair, Crutches, etc.)? No PATIENT GENDER DATA: .male ALLERGIES: Reviewed and unchanged MEDICATIONS REVIEWED: No PATIENT RELEVANT IMPLANT DATA REVIEWED: Not Applicable PATIENT PRESENTS WITH AN IMPLANTABLE OR ATTACHED SANDBLASTER STONE: No CREATININE: Creatinine Date Value Ref Range Status 03/14/2024 0.83 0.50 - 1.40 mg/dL Final Comment: Patients receiving either N-Acetylcysteine (NAC) or Metamizole prior to venipuncture, may have falsely depressed results. 02/18/2018 0.99 0.67 - 1.17 mg/dL Final 10/25/2017 0.75 0.67 - 1.17 mg/dL Final Estimated Glomerular Filtration Rate Date Value Ref Range Status 03/14/2024 119 >=60 mL/min/1.73m Final Comment: Estimated Glomerular Filtration Rate (eGFR) is calculated using the 2020 CKD-EPI creatinine equation. This equation utilizes serum creatinine, sex, and age as parameters. The creatinine assay has traceable calibration to isotope dilution- mass spectrometry. Refer to KDIGO guidelines for clinical interpretation. In patients with unstable renal function, e.g. those with acute kidney injury, the eGFRmay not accurately reflect actual GFR. eGFR- Date Value Ref Range Status 07/18/2016 >60 Final P.O.C.T. RESULTS: N/A November 12, [address] PERFORMED: No IV SITE: NM only - not applicable, oral or physician administered agents given to patient POST EXAM PIV STATUS: Not applicable PROCEDURE TYPE: NM GET: 1.06 mCi Tc99m SULFUR COLLOID was administered orally via 4 oz egg beaters,2 pieces toast, 8 oz water ADMINISTRATION TIME: 0759 PATIENT DISCHARGED TO: Ambulatory patient, left AL department area. Is this a therapy: No A Diagnostic radioactive procedure has taken place, with no further precautions necessary other than routine body substance precautions. More information regarding radiation safety can be found usingthis link: [email or web address] 20Diagnostic%20Nuclear%20Medicine%[email or web address] SIGNATURE: RILEY Israel) PATIENT NAME: Amado Marinelli DATE: November 12, 2024 TIME: 8:13 AM PAGER/CONTACT #: documented in this encounterTr[facility]-05-[facility]25 NoteHNO ID: [id number] Author: LISSA WIGGINS RT (R) Service: Nuclear Medicine Author Type: Technologist Type: Progress Notes Filed: 11/12/2024 08:13 Note Text: RADIOLOGY SERVICE PROGRESS NOTE SERVICE DATE: 11/12/2024 SERVICE TIME: 8:13 AM PATIENT IDENTITY VERIFICATION COMPLETED USING TWO (2) STANDARD IDENTIFIERS: Name and Date of confirmed by patient verbally and Name and Date of confirmed by identification band FALL SCREENING: Has the patient had 2 falls in the last year or 1 fall with injury or currently using an Ambulatory Assistive Device (Walker, Cane, Wheelchair, Crutches, etc.)? No PATIENT GENDER DATA: .male ALLERGIES: Reviewed and unchanged MEDICATIONS REVIEWED: No PATIENT RELEVANT IMPLANT DATA REVIEWED: Not Applicable PATIENT PRESENTS WITH AN IMPLANTABLE OR ATTACHED SANDBLASTER STONE: No CREATININE: Creatinine Date Value Ref Range Status 03/14/2024 0.83 0.50 - 1.40 mg/dL Final Comment: Patients receiving either N-Acetylcysteine (NAC) or Metamizole prior to venipuncture, may have falsely depressed results. 02/18/2018 0.99 0.67 - 1.17 mg/dL Final 10/25/2017 0.75 0.67 - 1.17 mg/dL Final Estimated Glomerular Filtration Rate Date Value Ref Range Status 03/14/2024 119 >=60 mL/min/1.73m? Final Comment: Estimated Glomerular Filtration Rate (eGFR) is calculated using the 2020 CKD-EPI creatinine equation. This equation utilizes serum creatinine, sex, and age as parameters. The creatinine assay has traceable calibration to isotope dilution-mass spectrometry. Refer to KDIGO guidelines for clinical interpretation. In patients with unstable renal function, e.g. those with acute kidney injury, the eGFR may not accurately reflect actual GFR. eGFR- Date Value Ref Range Status 07/18/2016 >60 Final P.O.C.T. RESULTS: N/A November 12, [address] PERFORMED: No IV SITE: AL only - not applicable, oral or physician administered agents given to patient POST EXAM PIV STATUS: Not applicable PROCEDURE TYPE: NM GET: 1.06 mCi Tc99m SULFUR COLLOID was administered orally via 4 oz egg beaters, 2 pieces toast, 8 oz water ADMINISTRATION TIME: 0759 PATIENT DISCHARGED TO: Ambulatory patient, left [place] department area. Is this a therapy: No A Diagnostic radioactive procedure has taken place, with no further precautions necessary other than routine body substance precautions. More information regarding radiation safety can be found using this link: [email or web address] 20Diagnostic%20Nuclear%20Medicine%[email or web address] SIGNATURE: RT Jhonatan(R) PATIENT NAME: Amado Marinelli DATE: November 12, 2024 TIME: 8:13 AM PAGER/CONTACT #:[facility]02-13-2025 NoteHNO ID: [id number] Author: BIPIN WEI RN Service: ? Author Type: Nurse Clinician Type: Progress Notes Filed: 10/23/2024 15:57 Note Text: Patient given written information about upper GI x-ray and the prep instructions. I verbally discussed and reviewed the information with the patient. All of patient's questions were answered. I verbally discussed and reviewed the information on gastric emptying study with the patient. All of patient's questions were answered. Patient given written information about esophageal manometry and the prep instructions. I verbally discussed and reviewed the information with the patient. All of patient's questions were answered. Patient given written information about EGD and Fuentes pH probe and the prep instructions. Verbally discussed and reviewed the information with the patient. All of patient's questions were answered. Bipin Wei [facility]02-13-2025 History of Present illness Narrative* Bipin Wei RN - 10/23/2024 3:52 PM EST Patient given written information about upper GI x-ray and the prep instructions. I verbally discussed and reviewed the information with the patient. All of patient's questions were answered. I verbally discussed and reviewed the information on gastric emptying study with the patient. All of patient's questions were answered. Patient given written information about esophageal manometry and the prep instructions. I verbally discussed and reviewed the information with the patient. All of patient's questions were answered. Patient given written information about EGD and Fuentes pH probe and the prep instructions. Verbally discussed and reviewed the information with the patient. All of patient's questions were answered. Bipin Wei RN * Harriet Rivera MD - 10/23/2024 2:40 PM EST SURGICAL SERVICES HISTORY AND PHYSICAL EXAMINATION SERVICE DATE: 10/23/2024 SERVICE TIME: 2:41 PM PRIMARY CARE PHYSICIAN: Dacia Camejo MD SUBJECTIVE CHIEF COMPLAINT: aborted hernia repair HISTORY OF PRESENT ILLNESS: Mr. Marinelli is a 33 year old male with a PMH of ADHD, Bipolar d/o and depression, polysubstance abuse (meth, heroin, overdose 07/2019), genital herpes, and tobacco use disorder who presents for surgical evaluation. Surgical consultation was requested by the patient's referring physician, Dr. Sancho Rodriguez MD. A copy of this consultation note will be provided to the requesting physician(s) by way of shared medical record or letter via [place] mail. 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 The only dissection completed in the attempted surgery, per the operative report, was dissection over the right zaida. The patient reports greater than one year history of heartburn and regurgitation symptoms that occur every time that he eats - no matter what he eats, he immediately experiences regurgitation of acidand food. He states that 2-3 times per week he has regurgitation of food he has just consumed and 2-3 nights per week he has on-going/near continuous emesis for 2-3 hours. His most severe symptoms occur at night. He was on Omeprazole 40 mg BID about one year and does not think it helped his symptoms at all and is no longer taking this medication. He eats a lot of Tums and thinks that every once in a while they help his symptoms. He states that his surgeon also placed him on baby ASA daily and he is still taking this. He denies dysphagia. Workup: - CT Abd/pelvis w/ IV contrast (09/17/24): no acute abnormality Social: smokes 1.5 packs of cigarettes per day; denies use of vape; denies SHS exposure. On probation so not using drugs currently - last use was one year ago. Denies use of ETOH or MJ PSH: hand surgery; Dx lap PAST MEDICAL HISTORY: PAST MEDICAL HISTORY Diagnosis Date ADHD (attention deficit hyperactivity disorder) Bipolar disorder ([facility]) Depression [facility], history of suicide attempt Genital herpes 04/2013 Polysubstance abuse ([facility]) meth, heroin. Oversoe 07/2019 [facility] Tobacco use disorder PAST SURGICAL HISTORY: PAST SURGICAL HISTORY Procedure Laterality Date EXPLORATORY OF ABDOMEN 09/15/2024 aborted [place]; Dr. Rodriguez HAND SURGERY HX Left 02/18/2018 FAMILY HISTORY: FAMILY HISTORY Problem Relation Age of Onset COPD Father Cancer Father of lung cancer Cancer Paternal Grandfather of lung cancer Cancer Paternal Uncle of lung cancer Psychiatry Mother depression Diabetes Maternal Grandmother SOCIAL HISTORY: Social History Tobacco Use Smoking status: Every Day Current packs/day: 0.50 Average packs/day: 0.5 packs/day for 5.0 years (2.5 ttl pk-yrs) Types: Cigarettes Smokeless tobacco: Former Types: Chew Tobacco comments: started smoking 17yo Vaping Use Vaping status: Never Used Substance Use Topics Alcohol use: No Drug use: No MEDICATIONS: Current Outpatient Medications Medication Sig aspirin, enteric coated (ASPIRIN, ENTERIC COATED) 81 mg EC tablet Take 1 tablet by mouth every afternoon. hydrOXYzine HCl (ATARAX) 50 mg tablet Take 1 tablet by mouth every 12 hours. omeprazole (PRILOSEC) 40 mg capsule Take 1 capsule by mouth every 12 hours. traZODone (DESYREL) 50 mg tablet Take 50 mg by mouth daily at bedtime. ALBUTEROL INHALATION Inhale as instructed. QUEtiapine XR (SEROQUEL XR) 50 mg Tb24 Take 50 mg by mouth daily at bedtime. (Patient not taking: Reported on 10/23/2024) keTORolac (TORADOL) 10 mg tablet Take 1 tablet by mouth every 6 hours as needed. (Patient not taking: Reported on 10/23/2024) No current facility-administered medications for this visit. ALLERGIES: ALLERGIES Allergen Reactions Ibuprofen GI Upset Naproxen GI Upset Penicillins Other: See Comments Throat started to close up. COMPLETE REVIEW OF SYSTEMS: Review of Systems Constitutional: Negative for chills, diaphoresis, fever and malaise/fatigue. HENT: Negative for congestion, hearing loss, nosebleeds, sinus pain, sore throat and tinnitus. Eyes: Negative for blurred vision, double vision, pain and redness. Respiratory: Negative for cough, hemoptysis, sputum production, shortness of breath and wheezing. Cardiovascular: Positive for chest pain (with acid regurgitation). Negative for palpitations, orthopnea, leg swelling and PND. Gastrointestinal: Positive for heartburn, nausea and vomiting (regurgitation). Negative for abdominal pain, blood in stool, constipation and diarrhea. Genitourinary: Negative for dysuria, frequency, hematuria and urgency. Musculoskeletal: Negative for back pain, falls, joint pain, myalgias and neck pain. Skin: Negative for itching and rash. Neurological: Negative for dizziness, speech change, focal weakness, seizures, loss of consciousness, weakness and headaches. Endo/Heme/Allergies: Does not bruise/bleed easily. Psychiatric/Behavioral: Positive for depression. Negative for hallucinations, memory loss, substance abuse and suicidal ideas. The patient is not nervous/anxious and does not have insomnia. OBJECTIVE PHYSICAL EXAM: BP 134/83 Pulse 88 Ht 6' 0 (1.83m) Wt 210 lb (95.3kg) SpO2 98% BMI 28.47 kg/(m^2). Physical Exam HENT: Head: Normocephalic and atraumatic. Nose: Nose normal. Eyes: General: No scleral icterus. Extraocular Movements: Extraocular movements intact. Conjunctiva/sclera: Conjunctivae normal. Pupils: Pupils are equal, round, and reactive to light. Cardiovascular: Rate and Rhythm: Normal rate. Pulmonary: Effort: Pulmonary effort is normal. No respiratory distress. Skin: General: Skin is warm and dry. Coloration: Skin is not jaundiced or pale. Neurological: Mental Status: He is oriented to person, place, and time. Psychiatric: Mood and Affect: Mood normal. Behavior: Behavior normal. DATA: Diagnostic tests reviewed for today's visit: EMR reviewed Plan ASSESSMENT AND PLAN Amado Marinelli is a 33 year old male with a PMH as noted above who presents with symptoms of GERD and having underwent aborted Maxwell fundoplication by Dr. Rodriguez. ASSESSMENT/PLAN: 1. Gastroesophageal reflux disease, unspecified whether esophagitis present - ICD9: 530.81, ICD10: K21.9 (primary diagnosis) - Discussed lifestyle modifications including losing weight, limiting caffeine, no meals three hours before sleep, and head of bed elevation - Continue treatment with Omeprazole - pt states he does not want to continue taking this medication. I offered him a prescription of Protonix or Pepcid, but he states he has no desire to take medications. - Patient's symptoms of emesis and regurgitation of food soon after eating, I believe, warrants additional workup with Gastric Emptying study and also manometry to rule out other concerns such as gastroparesis or achalasia. I will also repeat EGD and obtain a Fuentes pH study to establish extent of acid regurgitation - He is a heavy smoker of 1.5 packs per day. This can also contribute to GERD symptoms and will be required to stop smoking prior to any surgical intervention. - Setup for EGD - MANOMETRY ESOPHAGEAL - EGD - THERAPEUTIC, EUS, OR TUBE INTERVENTIONS - XR ESOPHAGRAM 2. Nausea - ICD9: 787.02, ICD10: R11.0 - Patient's symptoms of emesis and regurgitation of food soon after eating, I believe, warrants additional workup with Gastric Emptying study and also manometry to rule out other concerns such as gastroparesis or achalasia. - NM GASTRIC EMPTYING SOLID 3. Tobacco use disorder - ICD9: 305.1, ICD10: F17.200 - Cessation encouraged. - Physiologic and physical aspects of tobacco addiction as well as strategies for quitting were discussed. - Counseling was given focusing on the harmful effects of this addiction especially given the patient's medical condition(s) which will be worsened because of the chemicals in tobacco. - Counseling was given 5 minutes. - NICOTINE & METAB, UR - Informed patient that he will need to demonstrate smoking cessation prior to surgical intervention. He and his mother both endorsed understanding. 4. Polysubstance abuse (HCC) - ICD9: 305.90, ICD10: F19.10 - Currently on probation getting random drug tests. 5. Bipolar affective disorder, remission status unspecified (HCC) - ICD9: 296.80, ICD10: F31.9 - Continue current medical management Medical Decision Making: Problems: Moderate: New problem with uncertain prognosis and 2+ stable chronic illnesses Data: Unique test result(s) reviewed: 3+ Unique test(s) ordered: 3+ Discussed management or test w/ external physician/QHCP/source Risk: Moderate: Drug management Medical Decision Making Level: 4 - Moderate SIGNATURE: Harriet Rivera MD PATIENT NAME: Amado Marinelli DATE: October 23, 2024 TIME: 2:41 PM PAGER/CONTACT #: [id number] documented in this encounterTr[facility]-13-[facility]25 Telephone encounter Note * Telephone Encounter - Parris Marin LPN - 10/23/2024 3:41 PM EST Manometry scheduled for 12/15/2024 at 800am followed by EGD/Fuentes at 900am. Prep/instructions given to patient at checkout. Parris Marin LPN [facility] Work Phone: 1(668) 594-504102-13-2025 Note* Addendum Note - Parris Marin LPN - 10/23/2024 3:41 PM ESTAddended by: PARRIS MARIN on: 10/23/2024 03:41 PM Modules accepted: Orders [facility] Work Phone: 1(649) 611-117002-13-2025 Miscellaneous Notes* Addendum Note - Parris Marin LPN - 10/23/2024 3:41 PM ESTAddended by: PARRIS MARIN on: 10/23/2024 03:41 PM Modules accepted: Orders documented in this encounterTr[facility]02-13-2025 Miscellaneous Notes* Telephone Encounter - Parris Marin LPN - 10/23/2024 3:41 PM EST Manometry scheduled for 12/15/2024 at 800am followed by EGD/Fuentes at 900am. Prep/instructions given to patient at checkout. Parris Marin LPN documented in this encounterTr[facility]02-13-2025 NoteHNO ID: [id number] Author: HARRIET RIVERA MD Service: ? Author Type: Physician Type: Progress Notes Filed: 10/23/2024 15:21 Note Text: SURGICAL SERVICES HISTORY AND PHYSICAL EXAMINATION SERVICE DATE: 10/23/2024 SERVICE TIME: 2:41 PM PRIMARY CARE PHYSICIAN: Dacia Camejo MD SUBJECTIVE CHIEF COMPLAINT: aborted hernia repair HISTORY OF PRESENT ILLNESS: Mr. Marinelli is a 33 year old male with a PMH of ADHD, Bipolar d/o and depression, polysubstance abuse (meth, heroin, overdose 07/2019), genital herpes, and tobacco use disorder who presents for surgical evaluation. Surgical consultation was requested by the patient's referring physician, Dr. Sancho Rodriguez MD. A copy of this consultation note will be provided to the requesting physician(s) by way of shared medical record or letter via [place] mail. 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 The only dissection completed in the attempted surgery, per the operative report, was dissection over the right zaida. The patient reports greater than one year history of heartburn and regurgitation symptoms that occur every time that he eats - no matter what he eats, he immediately experiences regurgitation of acid and food. He states that 2-3 times per week he has regurgitation of food he has just consumed and 2-3 nights per week he has on-going/near continuous emesis for 2-3 hours. His most severe symptoms occur at night. He was on Omeprazole 40 mg BID about one year and does not think it helped his symptoms at all and is no longer taking this medication. He eats a lot of Tums and thinks that every once in a while they help his symptoms. He states that his surgeon also placed him on baby ASA daily and he is still taking this. He denies dysphagia. Workup: - CT Abd/pelvis w/ IV contrast (09/17/24): no acute abnormality Social: smokes 1.5 packs of cigarettes per day; denies use of vape; denies SHS exposure. On probation so not using drugs currently - last use was one year ago. Denies use of ETOH or MJ PSH: hand surgery; Dx lap PAST MEDICAL HISTORY: PAST MEDICAL HISTORY Diagnosis Date ADHD (attention deficit hyperactivity disorder) Bipolar disorder ([facility]) Depression [facility], history of suicide attempt Genital herpes 04/2013 Polysubstance abuse ([facility]) meth, heroin. Oversoe 07/2019 [facility] Tobacco use disorder PAST SURGICAL HISTORY: PAST SURGICAL HISTORY Procedure Laterality Date EXPLORATORY OF ABDOMEN 09/15/2024 aborted [place]; Dr. Rodriguez HAND SURGERY HX Left 02/18/2018 FAMILY HISTORY: FAMILY HISTORY Problem Relation Age of Onset COPD Father Cancer Father of lung cancer Cancer Paternal Grandfather of lung cancer Cancer Paternal Uncle of lung cancer Psychiatry Mother depression Diabetes Maternal Grandmother SOCIAL HISTORY: Social History Tobacco Use Smoking status: Every Day Current packs/day: 0.50 Average packs/day: 0.5 packs/day for 5.0 years (2.5 ttl pk-yrs) Types: Cigarettes Smokeless tobacco: Former Types: Chew Tobacco comments: started smoking 17yo Vaping Use Vaping status: Never Used Substance Use Topics Alcohol use: No Drug use: No MEDICATIONS: Current Outpatient Medications Medication Sig aspirin, enteric coated (ASPIRIN, ENTERIC COATED) 81 mg EC tablet Take 1 tablet by mouth every afternoon. hydrOXYzine HCl (ATARAX) 50 mg tablet Take 1 tablet by mouth every 12 hours. omeprazole (PRILOSEC) 40 mg capsule Take 1 capsule by mouth every 12 hours. traZODone (DESYREL) 50 mg tablet Take 50 mg by mouth daily at bedtime. ALBUTEROL INHALATION Inhale as instructed. QUEtiapine XR (SEROQUEL XR) 50 mg Tb24 Take 50 mg by mouth daily at bedtime. (Patient not taking: Reported on 10/23/2024) keTORolac (TORADOL) 10 mg tablet Take 1 tablet by mouth every 6 hours as needed. (Patient not taking: Reported on 10/23/2024) No current facility-administered medications for this visit. ALLERGIES: ALLERGIES Allergen Reactions Ibuprofen GI Upset Naproxen GI Upset Penicillins Other: See Comments Throat started to close up. COMPLETE REVIEW OF SYSTEMS: Review of Systems Constitutional: Negative for chills, diaphoresis, fever and malaise/fatigue. HENT: Negative for congestion, hearing loss, nosebleeds, sinus pain, sore throat and tinnitus. Eyes: Negative for blurred vision, double vision, pain and redness. Respiratory: Negative for cough, hemoptysis, sputum production, shortness of breath and wheezing. Cardiovascular: Positive for chest pain (with acid regurgitation). Negative for palpitations, orthopnea, leg swelling and PND. Gastrointestinal: Positive for heartburn, nausea and vomiting (regurgitation). Negative for abdominal pain, blood in stool, constipation and diarrhea. Genitourinary: Negative for dysuria, frequency, hematuria (more content not included)...[facility]02-03-2025 Hospital Discharge instructions Patient Education 10/13/2024 09:36:17 Diet for Vomiting or Diarrhea (Adult) Diet for Vomiting or Diarrhea (Adult) Your symptoms may return or get worse after eating certain foods listed below. If this happens, stop eating these foods until your symptoms ease and you feel better. Once the vomiting stops, follow the steps below. During the first 12 to 24 hours During the first 12 to 24 hours, follow this diet: Drinks. Plain water, sport drinks like electrolyte solutions, soft drinks without caffeine, mineralwater (plain or flavored), clear fruit juices, and decaffeinated tea and coffee. Soups. Clear broth. Desserts. Plain gelatin, popsicles, and fruit juice bars. As you feel better, you may add 6 to 8 ounces of yogurt per day. If you have diarrhea, don't have foods or drinks that contain sugar, high-fructose corn syrup, or sugar alcohols. During the next 24 hours During the next 24 hours you may add the following to the above: Hot cereal, plain toast, bread, rolls, and crackers Plain noodles, rice, mashed potatoes, and chicken noodle or rice soup Unsweetened canned fruit (but not pineapple) and bananas Don't eat more than 15 grams of fat a day. Do this by staying away from margarine, butter, oils, mayonnaise, sauces, gravies, fried foods, peanut butter, meat, poultry, and fish. Don't eat much fiber. Stay away from raw or cooked vegetables, fresh fruits (except bananas), and bran cereals. Limit how much caffeine and chocolate you have. Do not use any spices or seasonings except salt. During the next 24 hours Slowly go back to your normal diet, as you feel better and your symptoms ease. 8997-0662 [employer]. [address] [place] [address]. All rights reserved. This information is not intended as a substitute for professional medical care. Always follow yourhealthcare professional's instructions. Follow Up Care 10/13/2024 09:25:13 With:LA WAHL DO Address: [address] [place] [phone] When:2-4 days [facility] 02-03-2025 Note Discharge Instructions Thank you for allowing [facility] to assist you with your healthcare needs. The following is importantdischarge information regarding your hospital visit. Diagnosis from Today's Visit Vomiting What to Do Next Instructions from Your Care Team No qualifying data available. Post Acute Orders No qualifying data available. You Need to Schedule the Following Appointments Follow Up with LA WAHL DO When:Within 2-4 days Where:[address] [place] [phone] Allergies penicillin Medications Please ask your primary doctor or pharmacist before taking any other medication not listed, including over the counter drugs, herbal medications, vitamins and or supplements as they may interact withyour home medications. What How Much When Why Instructions Last Dose New ondansetron (Zofran 4 mg oral tablet) 1 tab(s) by mouth Every 6 hours as needed for Nausea/Vomiting Duration: 5 Days Printed Prescription Unchanged acetaminophen-oxyCODONE (Percocet 5 mg-325 mg oral tablet) 1 tab(s) by mouth Every 6 hours as needed for for pain Infected hand Duration: 3 Days Unchanged albuterol (albuterol MDI (90 mcg/ inh) CFC free inhalation aerosol) 1 puff(s) by inhalation Four (4) times a day as needed for as needed for wheezing Unchanged cephalexin (cephalexin 500 mg oral capsule) 1 cap by mouth Four (4) times a day Infected hand Duration: 10 Days Unchanged doxycycline (doxycycline hyclate 100 mg oral [...] medication providers or retail pharmacies. Education Materials Diet for Vomiting or Diarrhea (Adult) Your symptoms may return or get worse after eating certain foods listed below. If this happens, stop eating these foods until your symptoms ease and you feel better. Once the vomiting stops, follow the steps below. During the first 12 to 24 hours During the first 12 to 24 hours, follow this diet: Drinks. Plain water, sport drinks like electrolyte solutions, soft drinks without caffeine, mineralwater (plain or flavored), clear fruit juices, and decaffeinated tea and coffee. Soups. Clear broth. Desserts. Plain gelatin, popsicles, and fruit juice bars. As you feel better, you may add 6 to 8 ounces of yogurt per day. If you have diarrhea, don't have foods or drinks that contain sugar, high-fructose corn syrup, or sugar alcohols. During the next 24 hours During the next 24 hours you may add the following to the above: Hot cereal, plain toast, bread, rolls, and crackers Plain noodles, rice, mashed potatoes, and chicken noodle or rice soup Unsweetened canned fruit (but not pineapple) and bananas Don't eat more than 15 grams of fat a day. Do this by staying away from margarine, butter, oils, mayonnaise, sauces, gravies, fried foods, peanut butter, meat, poultry, and fish. Don't eat much fiber. Stay away from raw or cooked vegetables, fresh fruits (except bananas), and bran cereals. Limit how much caffeine and chocolate you have. Do not use any spices or seasonings except salt. During the next 24 hours Slowly go back to your normal diet, as you feel better and your symptoms ease. [id number] [employer]. [address] [place] [address]. All rights reserved. This information is not intended as a substitute for professional medical care. Always follow yourhealthcare professional's instructions. Additional Information VACCINATE! IT SAVES LIVES! Members of the community who have not yet received the COVID-19 vaccine and would like to receive it can visit one of [facility] vaccine clinics. There are many vaccine clinic locations within the [facility]. For locations and available times, please visit www.[email or web address].[place].gov/. It is important to note that some COVID mobile vaccine clinics are held outdoors and may be canceled in rainy or stormy conditions. To learn more about pediatric vaccinations (ages 5-11), we invite you to visit the [facility] webpage. [email or web address]/[email or web address]-Mnhofynyvx-[email or web address] [email or web address].htmlTo learn more about the COVID-19 vaccine, we invite you to visit the CDC website for a list of frequently asked questions. https://www.cdc.gov/coronavirus/2019-ncov/vaccines/faq.html [facility] Access Instructions: Stay connected with your healthcare team and access your personal medical information anytime with the [facility]. If you would like a full copy of your medical records please contact the [facility] Medical Records Department Sunday through Sunday between 8a.m. and 4:30p.m. Please follow the directions below to access the portal: 1.Access the email account you provided upon registration to the [facility].2.Look for an invitation email from [facility].3.Open the email and access the invitation link: Accept Invitation to [facility].Fill in the required mayer to create your account. Sign into [email or web address] with your username and password that you [...] you will allow to register on the [facility] Patient Portal for access to your information. You can also access the [facility] Patient Portal on the [employer]. Simply click on Health Records under Kiddy and then click on the [employer] logo. HOW TO SAFELY DISPOSE OF PRESCRIPTION MEDICATIONS Please use one of the following methods to safely dispose of your unused medications. 1.Use a drug disposal kit: the drug disposal pouch allows you to safely discard your old and unuseddrugs. Ask your nurse to give you one when you are discharged.2.Visit a local take-back location: Many local pharmacies and police departments have programs that collect old and unwanted prescriptiondrugs. Call your local pharmacy or go to http://[email or web address]/[email or web address] to find one close to you.3.Make use of household items: Use cat litter or old coffee grounds to dispose medications if other options arenot available. Mix your drugs with these household products, seal them in an airtight container andthrow it into the garbage. Call [facility]: [phone] to be sure your drugs can be [...] drowsiness, such as benzodiazepines, also known as benzos,including diazepam and alprazolam, muscle relaxants or sleep aids. Never sell or share prescriptionopioids. This is illegal. Store opioids in a secure place and out of reach of others (including children, family, friends and visitors). The last page(s) of this document has been signed and retained as a CHART COPY Signatures Patient Education Materials Diet for Vomiting or Diarrhea (Adult) Medication Leaflets My discharge plan and instructions have been reviewed and explained to me and I,AMADO MARINELLI understand my current condition and have read and understand these discharge instructions. I have received a written copy of the plan/instructions. If I have questions, I am aware that I should contact my doctor. 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 Signature: Date/Time: Relationship to Patient: Witness Name/Signature: Date/Time: [facility]01-13-2025 Evaluation note* Diagnosis Onset Date Resolution Status Admit Date Status post laparoscopic procedure inactive September 22 10:12am [facility] Work Phone: [phone]) 129-177701-06-2025 [facility] Medical Records Department [address] [place] [address] History Physical Exam 09/15/24 0702 MR#: [id number] Acct: [id number] Name: AMADO MARINELLI Rep #: [id number] : 1990 33 From: Sancho Rodriguez MD PCP: MAYCOL Jenkins, DITCHING MACHINE ENGINEER-C Status:[facility] Location: [place] [address] History and Physical Date of Admission: 09/15/24 Intake Vital Signs 07/22/2410:12 08/05/2413:36 Height 6 ft 6 ft Weight: 214 lb BMI 29.0 BP 124/82 H Blood Pressure Location Rt brachial Position Sitting Respiration 16 Intake Visit Reasons: S/P EGD 07-22 Chief Complaint: uncontrolled reflux f/u EGD Pull Worker Required: No Is patient in pain?: No Allergies Penicillins Allergy (Verified 08/29/24 14:47) Hivesibuprofen Adverse Reaction (Verified 08/29/24 14:47) Nausea Medications ???Medication ???Instructions ???Recorded ???Confirmed ???Type aspirin 81 mg tablet,delayed 81 mg PO QDAY 06/10/24 08/29/24 History release hydroxyzine HCl 50 mg tablet 50 mg PO BID 06/10/24 08/29/24 History quetiapine 50 mg tablet,extended 50 mg PO QHS 06/10/24 08/29/24 History release 24 hr omeprazole 40 mg capsule,delayed 40 mg PO BID 08/05/24 08/29/24 History release Have you fallen in the past year?: No PFSH Medical History (Updated 08/29/24 @ 14:57 by Jaja Forrest) Gastric reflux Substance abuse Bipolar disorder Smoker Asthma Leg cramps Acid reflux Heart disease COPD (chronic obstructive pulmonary disease) Surgical History (Updated 08/29/24 @ 14:49 by Jaja Forrest) History of esophagogastroduodenoscopy (EGD) Hx of hand surgery Social History Smoking Status: Current every day smoker tobacco type: cigarettes alcohol intake: current substance use type: heroin and methamphetamine HPI HPI HPI: Patient is here to discuss Maxwell fundoplication. He had EGD. He is still complaining of severe reflux. ROS General General: No weight change, appetite, fatigue, colon cancer, breast cancer or weakness HEENT HEENT: No difficulty swallowing, eye injury, eye surgery, swollen glands or hoarseness Endo Endocrine: No thyroid disease, diabetes mellitus, thyroid cancer, Hair loss, heat intolerance or cold intolerance Skin Skin: No rash or changing moles Musc Musculoskeletal: No back problems, arthritis, rheumatoid arthritis, gout or joint pain Cardio Cardiovascular: Yes heart disease; No murmur, pacemaker, atrial fibrillation, high blood pressure, heart attack, heart stent, palpitations, shortness of breat with exertion or chest pain Psych Psychiatric: Yes depression and anxiety; No hearing voices Resp Respiratory: No shortness of breath, Yes sleep apnea, No cough, Yes COPD, No asthma, No emphysema and No wheezing Gastro Gastrointestinal: No abdominal pain, No nausea or vomiting, No diarrhea, No constipation, No blood in stool, Yes acid reflux, No hemorrhoids, Yes ulcers, No gallbladder problem and No black,tarry s tools Steve Hematologic: Yes blood thinners, No blood disorders, No bleeding, No anemia and No blood clots Additional Details: 81mg aspirin Neuro Neurologic: No numbness, No tingling and No weakness Exam Const General: cooperative Orientation: alert and oriented x3 HENMT Head: normal to inspection Neck Neck: normal visual inspection and full ROM Chest Chest palpation inspection: normal inspection of the chest Resp Effort Inspection: normal respiratory effort Auscultation: clear to auscultation bilaterally Cardio Rate: regular rate Rhythm: regular rhythm GI Inspection: non-distended Palpation: soft and nontender Skin General: no rashes or lesions noted Neuro General: patient alert and patient oriented x3 Extrem General: full ROM Psych Appearance: grossly normal Mental Status: mental status grossly normal Assessment and Plan Assessment and Plan (1) Acid reflux: Status: Acute Plan: Patient is having severe acid reflux. I did an EGD to evaluate and he did have some reflux esophagitis. Biopsies were negative for Grande's. The patient will have manometry and then we discussed Maxwell fundoplication. I discussed robotic assisted laparoscopic Maxwell fundoplication with EGD. I discussed the procedure in detail as well as the risks including but not limited to bleeding, infection, injury other organs such as the esophagus, spleen, stomach or liver. Patient understands all the risks and is willing to proceed. Patient will be scheduled for manometry to determine if he will have a full wrap or a toupee and then he will be scheduled for surgery. Sancho Rodriguez MD Pager: [facility] [address] [place] [address], [address] [place] [address] Office: (more content not included)...[facility]11-12-2024 [facility] Medical Records Department [address] [place] [address] History Physical Exam 07/22/24 1059 MR#: [id number] Acct: [id number] Name: AMADO MARINELLI Rep #: [id number] : 1990 33 From: Sancho Rodriguez MD PCP: Jennifer Mathur, [facility], DITCHING MACHINE ENGINEER-C Status:[facility] Location: [place] [address] History and Physical Date of Admission: 07/22/24 Intake Vital Signs 10/24/2412:32 06/10/2414:03 Height 6 ft 6 ft Weight: 207 lb 8 oz BMI 28.1 BP 133/86 H Blood Pressure Location Rt brachial Position Sitting Respiration 18 Pulse 76 Pulse Source Monitor Temp 98.5 F Temp Source Temporal Pulse Oximetry (%) 97 Oxygen Delivery Method room air Intake Visit Reasons: UNCONTROLLED REFLUX Chief Complaint: uncontrolled reflux Accompanied by: Mother Is patient in pain?: No Allergies Penicillins Allergy (Verified 06/10/24 14:04) Hivesibuprofen Adverse Reaction (Verified 06/10/24 14:04) Nausea Medications ???Medication ???Instructions ???Recorded ???Confirmed ???Type aspirin 81 mg tablet,delayed 81 mg PO QDAY 06/10/24 06/10/24 History release hydroxyzine HCl 50 mg tablet 50 mg PO BID 06/10/24 06/10/24 History quetiapine 50 mg tablet,extended 50 mg PO QHS 06/10/24 06/10/24 History release 24 hr PFSH Medical History (Updated 06/10/24 @ 14:03 by Christiane Burrows LPN) Acid reflux Heart disease COPD (chronic obstructive pulmonary disease) Surgical History (Updated 06/10/24 @ 14:03 by Christiane Burrows LPN) Hx of hand surgery Social History (Updated 06/10/24 @ 14:03 by Christiane Burrows LPN) Smoking Status: Current every day smoker alcohol intake: current substance use type: heroin and methamphetamine HPI HPI HPI: Patient is a 33-year-old male here for uncontrolled GERD. He has been on a PPI for over a year which has not improved it. He reports that his burning in his chest and he wakes up feeling acid in his mouth. He denies nausea or vomiting. Denies fevers or chills or diarrhea. ROS General General: No weight change, appetite, fatigue, colon cancer, breast cancer or weakness HEENT HEENT: No difficulty swallowing, eye injury, eye surgery, swollen glands or hoarseness Endo Endocrine: No thyroid disease, diabetes mellitus, thyroid cancer, Hair loss, heat intolerance or cold intolerance Skin Skin: No rash or changing moles Musc Musculoskeletal: No back problems, arthritis, rheumatoid arthritis, gout or joint pain Cardio Cardiovascular: Yes heart disease; No murmur, pacemaker, atrial fibrillation, high blood pressure, heart attack, heart stent, palpitations, shortness of breat with exertion or chest pain Psych Psychiatric: Yes depression and anxiety; No hearing voices Resp Respiratory: No shortness of breath, Yes sleep apnea, No cough, Yes COPD, No asthma, No emphysema and No wheezing Gastro Gastrointestinal: No abdominal pain, No nausea or vomiting, No diarrhea, No constipation, No blood in stool, Yes acid reflux, No hemorrhoids, Yes ulcers, No gallbladder problem and No black,tarry stools Steve Hematologic: Yes blood thinners, No blood disorders, No bleeding, No anemia and No blood clots Additional Details: 81mg aspirin Neuro Neurologic: No numbness, No tingling and No weakness Exam Const General: cooperative Orientation: alert and oriented x3 [facility] Head: normal to inspection Neck Neck: normal visual inspection and full ROM Chest Chest palpation inspection: normal inspection of the chest Resp Effort Inspection: normal respiratory effort Auscultation: clear to auscultation bilaterally Cardio Rate: regular rate Rhythm: regular rhythm GI Inspection: non-distended Palpation: soft and nontender Skin General: no rashes or lesions noted Neuro General: patient alert and patient oriented x3 Extrem General: full ROM Psych Appearance: grossly normal Mental Status: mental status grossly normal Assessment and Plan Assessment and Plan (1) Acid reflux: Status: Acute Plan: Patient has severe GERD and he has never had an EGD. He was sent here for evaluation. I have briefly discussed hiatal hernia repair and fundoplication with him. First I will perform an EGD to evaluate. I explained endoscopy in detail to the patient. I explained the risks including but not limited to stroke or heart attack with anesthesia, perforation of the GI tract, bleeding, infection. I explained that any of these could necessitate further emergency surgery. The patient understands and all questions were answered sufficiently. The patient wishes to proceed with procedure. Sancho Rodriguez MD Pager: [facility] [address] [place] [address] Outpatient [place], [address] [place] [address] Office: I have e (more content not included)...[facility]11-07-2024 Note HNO ID: [id number] Author: ALFRED MCKEON APRN.ANNEALING FURNACE TENDER Service: ? Author Type: Nurse Practitioner Type: Progress Notes Filed: 07/17/2024 18:25 Note Text: Subjective HPI HPI Amado Marinelli is a 33 year old male who presents today for CC of cough, congestion, sob. This started 2 days ago/worsening. Has tried otc medication for relief. Symptoms are worsened by nothing. Risk factors smoker, hx of copd, close exposure to pneumonia/familiy. .Patient presents with: Cough: Headache, chest congestion, tightness in chest, x 2 days PAST MEDICAL HISTORY Diagnosis Date ADHD (attention deficit hyperactivity disorder) Bipolar disorder ([facility]) Depression [facility], history of suicide attempt Genital herpes 04/2013 Polysubstance abuse ([facility]) meth, heroin. Oversoe 07/2019 [facility] Tobacco use disorder PAST SURGICAL HISTORY Procedure Laterality Date HAND SURGERY HX Left 02/18/2018 ALLERGIES Ibuprofen, Naproxen, and Penicillins MEDICATIONS aspirin, enteric coated (ASPIRIN, ENTERIC COATED) 81 mg EC tablet Take 1 tablet by mouth every afternoon. hydrOXYzine HCl (ATARAX) 50 mg tablet Take 1 tablet by mouth every 12 hours. omeprazole (PRILOSEC) 40 mg capsule Take 1 capsule by mouth every 12 hours. QUEtiapine XR (SEROQUEL XR) 50 mg Tb24 Take 50 mg by mouth daily at bedtime. traZODone (DESYREL) 50 mg tablet Take 50 mg by mouth daily at bedtime. ALBUTEROL INHALATION Inhale as instructed. keTORolac (TORADOL) 10 mg tablet Take 1 tablet by mouth every 6 hours as needed. doxycycline monohydrate 100 mg tablet Take 1 tablet by mouth two times a day for 7 days. predniSONE (DELTASONE) 10 mg tablet Take 4 tabs daily for 3 days, then 2 tabs daily for 3 days, then 1 tab daily for 3 days with food. FAMILY HISTORY Problem Relation Age of Onset COPD Father Cancer Father of lung cancer Cancer Paternal Grandfather of lung cancer Cancer Paternal Uncle of lung cancer Psychiatry Mother depression Diabetes Maternal Grandmother Social History Tobacco Use Smoking status: Every Day Current packs/day: 0.50 Average packs/day: 0.5 packs/day for 5.0 years (2.5 ttl pk-yrs) Types: Cigarettes Smokeless tobacco: Current Types: Chew Tobacco comments: started smoking 17yo Vaping Use Vaping status: Never Used Substance Use Topics Alcohol use: No Drug use: No Review of Systems Constitutional: Negative for fever. HENT: Positive for congestion. Negative for ear pain, nosebleeds and sore throat. Respiratory: Positive for cough, sputum production and shortness of breath. Negative for wheezing. Cardiovascular: Negative for chest pain. Musculoskeletal: Negative for neck pain. Skin: Negative for itching and rash. Objective Blood pressure 123/84, pulse 79, temperature 37.1 ?C (98.7 ?F), resp. rate 20, weight 98 kg (216 lb 0.8 oz), SpO2 98%. Physical Exam Constitutional: General: He is not in acute distress. Appearance: He is not toxic-appearing or diaphoretic. HENT: Head: Normocephalic and atraumatic. Cardiovascular: Rate and Rhythm: Normal rate and regular rhythm. Heart sounds: Normal heart sounds, S1 normal and S2 normal. Pulmonary: Effort: Pulmonary effort is normal. Breath sounds: Normal breath sounds. Lymphadenopathy: Cervical: No cervical adenopathy. Right cervical: No superficial cervical adenopathy. Left cervical: No superficial cervical adenopathy. Neurological: Mental Status: He is alert and oriented to person, place, and time. Gait: Gait is intact. ASSESSMENT/PLAN: 1. Sinobronchitis - ICD9: 473.9, 490, ICD10: J32.9, J40 (primary diagnosis) - Will begin treatment with as per antibiotic as written, see orders - Supportive care with plenty of fluids, rest, and analgesia prn. - Follow up in 3-5 days if symptoms persist or worsen. - with pcp. -If you experience chest pain/shortness of breath go to ER - DOXYCYCLINE MONOHYDRATE 100 MG TABLET - PREDNISONE 10 MG TABLET 2. Exposure to pneumonia - ICD9: V01.89, ICD10: Z20.89 Cover with doxy and prednisone 3. History of COPD - ICD9: V12.69, ICD10: Z87.09 - PREDNISONE 10 MG TABLET Alfred Mckeon APRN.[facility]11-07-2024 History of Present illness Narrative* Alfred Mckeon APRN.ANNEALING FURNACE TENDER - 07/17/2024 6:23 PM EST Subjective HPI HPI Amado Marinelli is a 33 year old male who presents today for CC of cough, congestion, sob. Thisstarted 2 days ago/worsening. Has tried otc medication for relief. Symptoms are worsened by nothing. Risk factors smoker, hx of copd, close exposure to pneumonia/familiy. .Patient presents with: Cough: Headache, chest congestion, tightness in chest, x 2 days PAST MEDICAL HISTORY Diagnosis Date ADHD (attention deficit hyperactivity disorder) Bipolar disorder ([facility]) Depression [facility], history of suicide attempt Genital herpes 04/2013 Polysubstance abuse ([facility]) meth, heroin. Oversoe 07/2019 [facility] Tobacco use disorder PAST SURGICAL HISTORY Procedure Laterality Date HAND SURGERY HX Left 02/18/2018 ALLERGIES Ibuprofen, Naproxen, and Penicillins MEDICATIONS aspirin, enteric coated (ASPIRIN, ENTERIC COATED) 81 mg EC tablet Take 1 tablet by mouth every afternoon. hydrOXYzine HCl (ATARAX) 50 mg tablet Take 1 tablet by mouth every 12 hours. omeprazole (PRILOSEC) 40 mg capsule Take 1 capsule by mouth every 12 hours. QUEtiapine XR (SEROQUEL XR) 50 mg Tb24 Take 50 mg by mouth daily at bedtime. traZODone (DESYREL) 50 mg tablet Take 50 mg by mouth daily at bedtime. ALBUTEROL INHALATION Inhale as instructed. keTORolac (TORADOL) 10 mg tablet Take 1 tablet by mouth every 6 hours as needed. doxycycline monohydrate 100 mg tablet Take 1 tablet by mouth two times a day for 7 days. predniSONE (DELTASONE) 10 mg tablet Take 4 tabs daily for 3 days, then 2 tabs daily for 3 days, then 1 tab daily for 3 days with food. FAMILY HISTORY Problem Relation Age of Onset COPD Father Cancer Father of lung cancer Cancer Paternal Grandfather of lung cancer Cancer Paternal Uncle of lung cancer Psychiatry Mother depression Diabetes Maternal Grandmother Social History Tobacco Use Smoking status: Every Day Current packs/day: 0.50 Average packs/day: 0.5 packs/day for 5.0 years (2.5 ttl pk-yrs) Types: Cigarettes Smokeless tobacco: Current Types: Chew Tobacco comments: started smoking 17yo Vaping Use Vaping status: Never Used Substance Use Topics Alcohol use: No Drug use: No Review of Systems Constitutional: Negative for fever. HENT: Positive for congestion. Negative for ear pain, nosebleeds and sore throat. Respiratory: Positive for cough, sputum production and shortness of breath. Negative for wheezing. Cardiovascular: Negative for chest pain. Musculoskeletal: Negative for neck pain. Skin: Negative for itching and rash. Objective Blood pressure 123/84, pulse 79, temperature 37.1 C (98.7 F), resp. rate 20, weight 98 kg (216 lb 0.8 oz), SpO2 98%. Physical Exam Constitutional: General: He is not in acute distress. Appearance: He is not toxic-appearing or diaphoretic. HENT: Head: Normocephalic and atraumatic. Cardiovascular: Rate and Rhythm: Normal rate and regular rhythm. Heart sounds: Normal heart sounds, S1 normal and S2 normal. Pulmonary: Effort: Pulmonary effort is normal. Breath sounds: Normal breath sounds. Lymphadenopathy: Cervical: No cervical adenopathy. Right cervical: No superficial cervical adenopathy. Left cervical: No superficial cervical adenopathy. Neurological: Mental Status: He is alert and oriented to person, place, and time. Gait: Gait is intact. ASSESSMENT/PLAN: 1. Sinobronchitis - ICD9: 473.9, 490, ICD10: J32.9, J40 (primary diagnosis) - Will begin treatment with as per antibiotic as written, see orders - Supportive care with plenty of fluids, rest, and analgesia prn. - Follow up in 3-5 days if symptoms persist or worsen. - with pcp. -If you experience chest pain/shortness of breath go to ER - DOXYCYCLINE MONOHYDRATE 100 MG TABLET - PREDNISONE 10 MG TABLET 2. Exposure to pneumonia - ICD9: V01.89, ICD10: Z20.89 Cover with doxy and prednisone 3. History of COPD - ICD9: V12.69, ICD10: Z87.09 - PREDNISONE 10 MG TABLET Alfred Mckeon APRN.ANNEALING F[employer]NACE [employer]ER documented in [facility]24 NoteHNO ID: [id number] Author: CELI KEANE PA-C Service: ? Author Type: Physician Cut Out Marker Type: Progress Notes Filed: 03/11/2024 16:35 Note Text: Amado Marinelli is a 33 year old male who presents with Chest Pain (03/10/24 ) This is a 33-year-old male with a past medical history of bipolar disorder and polysubstance abuse including heroin and meth here with intermittent chest tightness that started last night. He describes the pain as a squeezing sensation in the middle of his chest that comes and lasts for a few seconds to a few minutes before resolving. The last episode was on route to the urgent care. It is not pleuritic, exertional or radiating. No alleviating symptoms. No fevers, chills, dizziness, shortness of breath, difficulty breathing, cough, hemoptysis, nausea or vomiting, abdominal pain, leg swelling or rash. Denies any previous history of known CAD or known family history of premature CAD. No recent travel or long-term immobilization. Denies any recent drug use. The history is provided by the patient. Chest Pain Pertinent negatives include no abdominal pain, no cough, no dizziness, no fever, no hemoptysis, no nausea, no shortness of breath and no vomiting. PAST MEDICAL HISTORY Diagnosis Date ADHD (attention deficit hyperactivity disorder) Bipolar disorder ([facility]) Depression [facility], history of suicide attempt Genital herpes 04/2013 Polysubstance abuse ([facility]) meth, heroin. Oversoe 07/2019 [facility] Tobacco use disorder Current Outpatient Medications Medication Sig Dispense Refill ALBUTEROL INHALATION Inhale as instructed. predniSONE (DELTASONE) 20 mg tablet Take 40 mg by mouth. keTORolac (TORADOL) 10 mg tablet Take 1 tablet by mouth every 6 hours as needed. No current facility-administered medications for this visit. Social History Tobacco Use Smoking status: Every Day Packs/day: 0.50 Years: 5.00 Additional pack years: 0.00 Total pack years: 2.50 Types: Cigarettes Smokeless tobacco: Current Types: Chew Tobacco comments: started smoking 17yo Vaping Use Vaping Use: Never used Substance Use Topics Alcohol use: No Drug use: No Review of Systems Constitutional: Negative for chills and fever. Respiratory: Negative for cough, hemoptysis and shortness of breath. Cardiovascular: Positive for chest pain. Negative for leg swelling. Gastrointestinal: Negative for abdominal pain, blood in stool, melena, nausea and vomiting. Neurological: Negative for dizziness. BP 125/83 Pulse 70 Temp 98.2 Resp 18 Wt 200 lb (90.7kg) SpO2 96% Physical Exam Vitals and nursing note reviewed. Constitutional: General: He is not in acute distress. Appearance: He is not ill-appearing or toxic-appearing. HENT: Head: Normocephalic and atraumatic. Mouth/Throat: Mouth: Mucous membranes are moist. Cardiovascular: Rate and Rhythm: Normal rate and regular rhythm. Pulmonary: Effort: Pulmonary effort is normal. No respiratory distress. Breath sounds: No stridor. No wheezing, rhonchi or rales. Musculoskeletal: Cervical back: Neck supple. Right lower leg: No edema. Left lower leg: No edema. Comments: Moves all extremities x 4 spontaneously and without difficulty. Skin: General: Skin is warm and dry. Neurological: Mental Status: He is alert. Comments: Awake and alert. Motor grossly intact. Steady gait. EKG was obtained and it reveals normal sinus rhythm with a ventricular rate of 64 bpm. Normal [place] interval. No ST elevation or T wave abnormalities. No previous tracings for comparison. This is a 33-year-old male presents with intermittent chest tightness since last night. He is hemodynamically stable. Afebrile. No acute respiratory airway compromise. No hypoxia. EKG obtained revealing normal sinus rhythm with a ventricular rate of 64 bpm. No noted abnormalities. No clinical risk factors for pulmonary embolism. Although he is low risk for acute coronary syndrome based off his symptoms and my limitations in obtaining more advanced blood work I feel he does require emergency department evaluation where at the very least a set of cardiac enzymes can be done. He is amenable to this however declines EMS transportation. He would like to go by private vehicle which I felt was reasonable. He is unsure as to what ED emergency room and he will go to as he is currently in treatment facility and he needs to contact his transportation. He was discharged in stable condition and will go immediately to the emergency department. (R07.89) Chest tightness (primary encounter diagnosis) Plan: ECG COMPLETE Celi Keane PA-C This document has been created with the use of voice recognition technology. Every effort was taken to correct for errors however it may contain inaccuracies, misspellings, syntax errors, or word sense that escaped review. Please inquire further with the author for clarification if needed.[facility]07-02-20[facility] History of Present illness Narrative* Celi Keane PA-C - 03/11/2024 4:29 PM EDT Amado Marinelli is a 33 year old male who presents with Chest Pain (03/10/24 ) This is a 33-year-old male with a past medical history of bipolar disorder and polysubstance abuse including heroin and meth here with intermittent chest tightness that started last night. He describes the pain as a squeezing sensation in the middle of his chest that comes and lasts for a few seconds to a few minutes before resolving. The last episode was on route to the urgent care. It is not pleuritic, exertional or radiating. No alleviating symptoms. No fevers, chills, dizziness, shortness of breath, difficulty breathing, cough, hemoptysis, nausea or vomiting, abdominal pain, leg swelling or rash. Denies any previous history of known CAD or known family history of premature CAD. No recent travel or long-term immobilization. Denies any recent drug use. The history is provided by the patient. Chest Pain Pertinent negatives include no abdominal pain, no cough, no dizziness, no fever, no hemoptysis, no nausea, no shortness of breath and no vomiting. PAST MEDICAL HISTORY Diagnosis Date ADHD (attention deficit hyperactivity disorder) Bipolar disorder ([facility]) Depression [facility], history of suicide attempt Genital herpes 04/2013 Polysubstance abuse ([facility]) meth, heroin. Oversoe 07/2019 [facility] Tobacco use disorder Current Outpatient Medications Medication Sig Dispense Refill ALBUTEROL INHALATION Inhale as instructed. predniSONE (DELTASONE) 20 mg tablet Take 40 mg by mouth. keTORolac (TORADOL) 10 mg tablet Take 1 tablet by mouth every 6 hours as needed. No current facility-administered medications for this visit. Social History Tobacco Use Smoking status: Every Day Packs/day: 0.50 Years: 5.00 Additional pack years: 0.00 Total pack years: 2.50 Types: Cigarettes Smokeless tobacco: Current Types: Chew Tobacco comments: started smoking 17yo Vaping Use Vaping Use: Never used Substance Use Topics Alcohol use: No Drug use: No Review of Systems Constitutional: Negative for chills and fever. Respiratory: Negative for cough, hemoptysis and shortness of breath. Cardiovascular: Positive for chest pain. Negative for leg swelling. Gastrointestinal: Negative for abdominal pain, blood in stool, melena, nausea and vomiting. Neurological: Negative for dizziness. BP 125/83 Pulse 70 Temp 98.2 Resp 18 Wt 200 lb (90.7kg) SpO2 96% Physical Exam Vitals and nursing note reviewed. Constitutional: General: He is not in acute distress. Appearance: He is not ill-appearing or toxic-appearing. HENT: Head: Normocephalic and atraumatic. Mouth/Throat: Mouth: Mucous membranes are moist. Cardiovascular: Rate and Rhythm: Normal rate and regular rhythm. Pulmonary: Effort: Pulmonary effort is normal. No respiratory distress. Breath sounds: No stridor. No wheezing, rhonchi or rales. Musculoskeletal: Cervical back: Neck supple. Right lower leg: No edema. Left lower leg: No edema. Comments: Moves all extremities x 4 spontaneously and without difficulty. Skin: General: Skin is warm and dry. Neurological: Mental Status: He is alert. Comments: Awake and alert. Motor grossly intact. Steady gait. EKG was obtained and it reveals normal sinus rhythm with a ventricular rate of 64 bpm. Normal OH interval. No ST elevation or T wave abnormalities. No previous tracings for comparison. This is a 33-year-old male presents with intermittent chest tightness since last night. He is hemodynamically stable. Afebrile. No acute respiratory airway compromise. No hypoxia. EKG obtained revealing normal sinus rhythm with a ventricular rate of 64 bpm. No noted abnormalities. No clinical risk factors for pulmonary embolism. Although he is low risk for acute coronary syndrome based off his symptoms and my limitations in obtaining more advanced blood work I feel he does require emergency department evaluation where at the very least a set of cardiac enzymes can be done. He is amenable to this however declines EMS transportation. He would like to go by private vehicle which I felt was reas onable. He is unsure as to what ED emergency room and he will go to as he is currently in treatmentfacility and he needs to contact his transportation. He was discharged in stable condition and willgo immediately to the emergency department. (R07.89) Chest tightness (primary encounter diagnosis) Plan: ECG COMPLETE Celi Keane PA-C This document has been created with the use of voice recognition technology. Every effort was takento correct for errors however it may contain inaccuracies, misspellings, syntax errors, or word sense that escaped review. Please inquire further with the author for clarification if needed. documented in this encounterTr[facility]07-[facility]-2024 Instructions* Patient Instructions* Celi Keane PA-C - 03/11/2024 4:27 PM EDT Although your EKG looks okay here in the clinic given you are having off-and-on chest tightness andlimitations of urgent care I do feel like you should be seen in the emergency department where if deemed necessary more advanced blood work and imaging can be done including likely heart enzymes. documented in this encounterTr[facility]02-14-2024 Discharge summary Author Cheo Short [facility] October 24, 2023 4:16pm Note Date/Time October 24, 2023 2:01pm [facility] Medical Records Department [address] [place] [id number] Emergency Department Summary 10/24/23 MR#: [id number] Acct: [id number] Name: AMADO MARINELLI Rep #:[id number] : 1990 32 From: Cheo Short DO PCP: Dr. Dacia Camejo MD Status:REG ER Location: ED HPI HPI - Psych History of Present Illness Chief Complaint: Mental Health Detail of Chief Complaint: Mental health evaluation Informant: patient Narrative Narrative: Patient presents to the emergency department at request of counseling center formental health evaluation. Patient apparently had gone to the counseling center to get back on his antidepressant medication because he has been off of it for several years. Patient states that several nights ago he had had some issues with family members and was locked outside and had thoughts of wanting to go useheroin to get high. He denied feeling suicidal or homicidal. He apparently wasadvised to come into the emergency department to get back on his medications. Patient got upset and left the counseling center before he was pink slipped and then apparently the counseling center pink slipped him. He presented to the emergency department 3 hours later of his own volition. Patient denies any auditory or visual hallucinations. He was actually in the emergency department earlier today with his dang's daughter who had had a head injury. Patient denies recent illness. He does not want to be evaluated by her social worker palliative care and does not want to have any blood work or urinalysis or any type of testing done. There is currently no available pink slipped here. [facility] Medical History COPD (chronic obstructive pulmonary disease) Home Medications NK 10/24/23 [History Last Taken Unknown] Allergy/AdvReac Type Severity Reaction Status Date / Time Penicillins Allergy Hives Verified 10/24/23 13:32 ibuprofen AdvReac Nausea Verified 10/24/23 13:32 Social History Smoking Status: Unknown if ever smoked ROS ROS ED Review of Systems ROS Unobtainable: other Constitutional Constitutional ED: Reports lethargy; Denies chills, fever(s), sweats or weight loss Eyes Eyes: Denies blurry vision, change in vision or diplopia ENT ENT ED: Denies rhinorrhea or sore throat Cardiovascular Cardiovascular: Denies chest pain, orthopnea or racing heartbeat Respiratory/Chest Respiratory/Chest: Denies cough, dyspnea, dyspnea on exertion, orthopnea or sputum Gastrointestinal Gastrointestinal: Denies abdominal pain, diarrhea, nausea or vomiting Genitourinary Genitourinary ED: Denies dysuria, hematuria or urinary frequency Musculoskeletal Musculoskeletal: Denies arthralgias, back pain, myalgias or neck pain Integumentary Denies abscess, Abrasions or rash Neurologic Neurologic: Denies headache(s) or weakness Psychiatric Psychiatric: Denies anxiety, depression or suicidal thoughts Endocrine Endocrinology: Denies polydipsia, polyphagia or polyuria Hematologic/Lymphatic Hematologic/Lymphatic: Denies easy bleeding, easy bruising or lymphadenopathy Allergic/Immunologic Allergic/Immunologic ED: Denies mouth swelling, tongue swelling or urticaria EXAM Physical Exam Const Vital Signs: 10/24/23 13:32 Temperature 97.6 F L Temperature Source Temporal Pulse Rate 78 Respiratory Rate 16 Blood Pressure 135/97 H Blood Pressure Mean 109 Pulse Ox 98 Oxygen Delivery Method Room Air Positive well nourished and well developed General Appearance ED: well developed and NAD HEENT Reports TM's clear and moist mucous membranes normocephalic and atraumatic; Negative for trauma or tenderness Tympanic Membrane ED: Yes TM's clear Eyes PERRL and EOMs intact bilaterally General Eye ED: Negative for pale conjunctiva or scleral icterus Neck no lymphadenopathy, supple and no JVD General: Negative for tenderness Chest Wall inspection of chest normal and palpation of chest normal Chest: Negative for tenderness Resp normal respiratory effort and clear to auscultation bilaterally Effort and Inspection: Negative for respiratory distress or pain with movement Auscultation: Negative for rhonchi, wheezes or diminished lung sounds Cardio regular rate, regular rhythm, S1 normal heart sound, S2 normal heart sound and no murmurs Peripheral Pulses: pulses 2+ throughout GI normal to inspection, nondistended, normoactive bowel sounds, soft to palpation,non-tender, non-distended and no masses Back/Spine no CVA tenderness and no thoracic nor lumbar tenderness Extremity normal to inspection General Extremety ED: Negative for edema General Extremity: Negative for edema Neuro oriented x3, CN's II-XII intact bilaterally, no sensory deficits noted and gait normal Sensorium / Orientation: awake, alert, oriented to person, oriented to place andoriented to time Motor Exam: strength 5/5 throughout and strength abnormal Psych mental status grossly normal Skin no rashes or lesions noted and no wounds MDM MDM MDM Narrative Medical decision making narrative: Patient presents to the emergency department requesting Seroquel for which she had been on years ago. He is denying suicidality. He is denying feeling homicidal. Does not want evaluation otherwise by social worker palliative care and is refusing blood work and toxicology screen. He clinically looks well and has capacity. Iwill attempt to get in touch with counselor who saw him earlier today who understand her concerns as at this time I do not have a good reason to hold him against his will. I was able to discuss with social worker palliative care who saw patient in the office today. She relates that he did make statements of suicidality and wanting to harm himself and that he was just done with things and wanted to justget a rope. She has significant concerns regarding his depression and has concerns about patient self-harm. He has had prior suicide attempts in the past. Patient apparently has not been honest with me regarding what was said tosocial worker. He is evasive. She felt patient would require hospitalization for stabilization of his depression. After he was alerted that plan was to transfer him to psychiatric facility for evaluation by psychiatrist he states that if he has to be forced to go somewhere that he would shoot every booking police officer in [place] and the ER physician. Care of patient will be turned over toevening physician awaiting placement by crisis. Lab Data Attestation: I reviewed the patient's lab results. Labs: Laboratory Results - last 24 hr 10/24/23 10/24/23 14:30 15:00 WBC 8.6 RBC 5.92 Hgb 16.5 Hct 50.0 MCV 84.5 MCH 27.9 MCHC 33.0 RDW Std Deviation 39.7 RDW Coeff of Marques 12.9 Plt Count 254 MPV 9.9 Immature Gran % (Auto) 0.700 Neut % (Auto) 61.1 Lymph % (Auto) 24.8 Harper % (Auto) 10.3 H Eos % (Auto) 2.0 Baso % (Auto) 1.1 H Absolute Neuts (auto) 5.2 Absolute Lymphs (auto) 2.12 Nucleated RBC % 0 Sodium 137 Potassium 4.1 Chloride 102 Carbon Dioxide 31.0 Anion Gap 4 L BUN 20 H Creatinine 1.16 Estim Creat Clear Calc 100.34 Est GFR (MDRD) Af Amer 93 Est GFR (MDRD) Non-Af 77 BUN/Creatinine Ratio 17.2 Glucose 132 H Calcium 9.6 Urine Opiates Screen NEGATIVE Urine Methadone Screen NEGATIVE Ur Barbiturates Screen NEGATIVE Ur Phencyclidine Scrn NEGATIVE Ur Amphetamines Screen POSITIVE H MDMA (Ecstasy) Screen POSITIVE H U Benzodiazepines Scrn NEGATIVE Urine Cocaine Screen NEGATIVE U Cannabinoids Screen POSITIVE H Ur Drug Screen Comment Ethyl Alcohol < 3.0 Discharge Plan Triage Chief Complaint: Mental Health ED Provider: Cheo Short Dx/Rx/DC Orders Clinical Impression: Illicit drug use, Suicidal ideation, Depression Prescriptions: No Action prednisone 20 mg tablet 60 mg PO DAILY Qty: 15 0RF cyclobenzaprine [cyclobenzaprine] 10 mg tablet 10 mg PO TID PRN (Reason: Muscle Spasm) Qty: 15 0RF prednisone 20 mg tablet 60 mg PO DAILY Qty: 15 0RF Primary Care Provider: Dacia Camejo Referrals: Dacia Camejo MD [Primary Care Provider] - Disposition Disposition: Psychiatric Hospital or Unit What to do if you have Problems For any increased pain, shortness of breath, bleeding, nausea or vomiting, chestpain, or any unexpected problems, contact your Primary Care Provider. Call [facility] ([phone]) or report to the closest Emergency Room. Call 911 if necessary. 10/24/23 1616 <Electronically signed by Cheo Short DO> Cosigner Signature (if applicable): CC: Dr. Dacia Camejo MD ~ Signed [facility] Work Phone: [phone] 141-685701-30-2024 Hospital Discharge instructions Patient Education 10/09/2023 11:42:21 Foreign Body, [...] or swimming) until the stitches or edmar aretaken out. If surgical tape or strips were used, keep the area clean and dry. If it becomes wet, blot it dry with a towel. Medicine You can take lxyg-dle-ybxtyaj medicine for pain, unless you were given a different pain medicine touse. If you have chronic liver or kidney [...] swelling or pus coming from the wound [id number] [employer]. [address] [place] [address]. All rights reserved. This information is not intended as a substitute for professional medical care. Always follow yourhealthcare professional's instructions. 10/09/2023 11:42:05 Laceration, Hand: All [...] date on this vaccination and the object thatcut you may carry tetanus. Home care Your healthcare provider may prescribe an antibiotic. This is to help prevent infection. Follow allinstructions for taking this medicine. Take the medicine every day until it is gone or you are toldto stop. You should not have any left [...] the stitches dry, clean the wound daily. First,remove the bandage. Then wash the area gently with soap and warm water, or as directed by the healthcare provider. Use a wet cotton swab to loosen and remove any blood or crust that forms. After cleaning, apply a thin layer of antibiotic ointment if advised. Then put on a new bandage unless you aretold not to. Caring for skin glue: Don [...] affected hand Decreased movement of the hand [phone] [employer]. [address] [place] [address]. All rights reserved. This information is not intended as a substitute for professional medical care. Always follow yourhealthcare professional's instructions. Follow Up Care 10/09/2023 10:19:48 With:Your hand surgeon Address:Unknown When:2-4 days Comments:Follow-up as neededWash daily and apply antibiotic ointmentHave sutures removed in 12 to 14 daysFollow-up for reevaluation for foreign body if you continue to have any discomfort or any signs of infection With:DACIA CAMEJO Address: [address] [place] [phone]- Business (1) When:2-4 days [facility] 01-30-2024 Note Discharge Instructions Thank you for allowing [facility] to assist you with your healthcare needs. The following is importantdischarge information regarding your hospital visit. Diagnosis from [...] DACIA CAMEJO When Within 2-4 days Where: [address] [place] [address] [facility] (1) Allergies penicillin Medications Please ask your primary doctor or pharmacist before taking any other medication not listed, including over the counter drugs, herbal medications, vitamins and or supplements as they may interact withyour home medications. What How Much When Why [...] may report side effects to FDA at 8-369-HVX-0212. What other drugs will affect cephalexin? Tell your doctor about all your other medicines, especially: metformin; or probenecid. This list is not complete. Other drugs may affect cephalexin, including prescription and nkka-paf-bwbgrvs medicines, vitamins, and herbal products. Not all [...] to ensure that the information provided by [employer] ('[employer]') is accurate, up-to-date, and complete, but no guarantee is made to that effect. Drug information contained herein may be time sensitive. [employer] information has been compiled for use by healthcare practitioners and consumers in the [place] and therefore [employer] does not warrant that uses outside of the [place] are appropriate, unless specifically indicated otherwise. [employer]'s drug information does not endorse drugs, diagnose patients or recommend therapy. [employer] drug information isan informational resource designed to assist licensed healthcare practitioners in caring for their p atients and/or to serve consumers viewing this service as a supplement to, and not a substitute for, the expertise, skill, knowledge and judgment of healthcare practitioners. The absence of a warningfor a given drug or drug combination in no way should be construed to indicate that the drug or drug combination is safe, effective or appropriate for any given patient. [facility] does not assume any responsibility for any aspect of healthcare administered with the aid of information [facility] provides. The information contained herein is not intended to cover all possible uses, directions, precautions, warnings, drug interactions, allergic reactions, or adverse effects. If you have questions about the drugs you are taking, check with your doctor, nurse or pharmacist. Copyright 9840-6863 [facility].618 [employer]. Version: 08.10. Revision Date: 04/11/2023. Education Materials [...] or swimming) until the stitches or edmar aretaken out. If surgical tape or strips were used, keep the area clean and dry. If it becomes wet, blot it dry with a towel. Medicine You can take bewv-[id number] medicine for pain, unless you were given a different pain medicine touse. If you have chronic liver or kidney [...] swelling or pus coming from the wound [id number] [employer]. [address] [place] [address]. All rights reserved. This information is not intended as a substitute for professional medical care. Always follow yourhealthcare professional's instructions. Hand Laceration: All Closures A [...] date on this vaccination and the object thatcut you may carry tetanus. Home care Your healthcare provider may prescribe an antibiotic. This is to help prevent infection. Follow allinstructions for taking this medicine. Take the medicine every day until it is gone or you are toldto stop. You should not have any left [...] the stitches dry, clean the wound daily. First,remove the bandage. Then wash the area gently with soap and warm water, or as directed by the healthcare provider. Use a wet cotton swab to loosen and remove any blood or crust that forms. After cleaning, apply a thin layer of antibiotic ointment if advised. Then put on a new bandage unless you aretold not to. Caring for skin glue: Don [...] affected hand Decreased movement of the hand [id number] [employer]. [address] [place] [address]. All rights reserved. This information is not intended as a substitute for professional medical care. Always follow yourhealthcare professional's instructions. Additional Information VACCINATE! IT SAVES LIVES! Members of the community who have not yet received the COVID-19 vaccine and would like to receive it can visit one of [facility] vaccine clinics. There are many vaccine clinic locations within the [facility]. For locations and available times, please visit www.[email or web address].[place].gov/. It is important to note that some COVID mobile vaccine clinics are held outdoors and may be canceled in rainy or stormy conditions. To learn more about pediatric vaccinations (ages 5-11), we invite you to visit the [facility] webpage. https://www.[facility].org/pages/2318-Glzth-Lrkxmybyvbv-Jkoeitnejv-Vcpfr-Xfk stions.htmlTo learn more about the COVID-19 vaccine, we invite you to visit the CDC website for a list of frequently asked questions. https://www.cdc.gov/coronavirus/2019-ncov/vaccines/faq.html [facility] Access Instructions: Stay connected with your healthcare team and access your personal medical information anytime with the [facility] Patient Portal. If you would like a full copy of your medical records please contact the [facility] Medical Records Department Sunday through Sunday between 8a.m. and 4:30p.m. Please follow the directions below to access the portal: 1.Access the email account you provided upon registration to the [facility].2.Look for an invitation email from [facility].3.Open the email and access the invitation link: Accept Invitation to [employer]4.Fill in the required mayer to create your account. Sign into [email or web address].[email or web address] with your username and password that you [...] you will allow to register on the [facility] Patient Portal for access to your information. You can also access the [facility] Patient Portal on the [employer]. Simply click on Health Records under Kiddy and then click on the [employer] logo. HOW TO SAFELY DISPOSE OF PRESCRIPTION MEDICATIONS Please use one of the following methods to safely dispose of your unused medications. 1.Use a drug disposal kit: the drug disposal pouch allows you to safely discard your old and unuseddrugs. Ask your nurse to give you one when you are discharged.2.Visit a local take-back location: Many local pharmacies and police departments have programs that collect old and unwanted prescriptiondrugs. Call your local pharmacy or go to http://PathGroup.PalindromX/4P0Vm4t to find one close to you.3.Make use of household items: Use cat litter or old coffee grounds to dispose medications if other options arenot available. Mix your drugs with these household products, seal them in an airtight container andthrow it into the garbage. Call [facility]: [phone] to be sure your drugs can be [...] drowsiness, such as benzodiazepines, also known as benzos,including diazepam and alprazolam, muscle relaxants or sleep aids. Never sell or share prescriptionopioids. This is illegal. Store opioids in a [...] been reviewed and explained to me and I,AMADO MARINELLI understand my current condition and have read and understand these discharge instructions. I have received a written copy of the plan/instructions. If I have questions, I am aware that I should contact my doctor. 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 Signature: Date/Time: Relationship to Patient: Witness Name/Signature: Date/Time: [facility]01-30-2024 Note ORIGINAL EXAMINATION: THREE XRAY VIEWS OF [...] Sign Date: 10/09/2023 11:35:44 AM Ordering Provider: [facility]01-30-2024 Note ORIGINAL EXAMINATION: THREE XRAY VIEWS OF [...] Sign Date: 10/09/2023 11:30:43 AM Ordering Provider: [facility]10-03-2023 Miscellaneous Notes* Telephone Encounter - Priscilla Whitehead LPN - 06/12/2023 9:42 AM EDT Left message for patient with negative results and recommendations.Priscilla Whitehead LPN * Telephone Encounter - Kenna Morrell MA - 06/10/2023 9:12 AM EDT Left message for pt to call back. Kenna Morrell MA * Telephone Encounter - Kenna Morrell MA - 06/10/2023 8:34 AM EDT ----- Message from Araceli Sim APRN.ANNEALING FURNACE TENDER sent at 06/10/2023 8:11 AM EDT ----- Please advise patient: You tested negative for COVID and Influenza. If you were tested because you were having symptoms, please monitor these symptoms and for any worrisome symptoms, please call yourprimary care provider or schedule a visit with [facility]. Araceli Sim APRN.ANNEALING FURNACE TENDER [facility] Miscellaneous Notes* Telephone Encounter - Obdulia Patel RN - 06/10/2023 1:59 PM EDT Reason for Call: Vomiting. Patient was just seen yesterday and given Amoxicillin for sinus infection. The vomiting started today. Outcome: Patient has no pcp. Advised to be seen within the next 24 hours. He [facility] Reason for Disposition Vomiting a [...] pain level. Worse when standing. Protocols used: Ydkonuzz-SGHCV-UJ documented in this [facility]Tr[facility]-30-2023 History of Present illness Narrative* Adolfo Zepeda MD - 06/09/2023 2:24 PM EDT Patient presents with: Cough: Cough, congestion, fever [...] pain, shortness of breath, and lethargy; in theER if severe. - DOXYCYCLINE MONOHYDRATE 100 MG CAPSULE, may discontinue if positive for COVID. - COVID & INFLUENZA A/B NAAT, ROUTINE Adolfo Zepeda MD documented in this encounterTr[facility]09-16-2023 Discharge summary Author Juancho Holley [facility] May 26, 2023 9:12pm Note Date/Time May 26, 2023 9:12pm [facility] Medical Records Department [address] [place] [address] Emergency Department Summary 05/26/23 MR#: [id number] Acct: [id number] Name: AMADO MARINELLI Rep #:[id number] : 1990 32 From: Juancho Holley MD PCP: Dr. Dacia Camejo MD Status:REG ER Location: ED HPI History of Present Illness Chief Complaint: Shortness of Breath Onset/Context/Timing Onset: Today Context: Gradual Onset Timing: Continuous Maximum Severity: Severe Narrative Narrative: Patient has a history of COPD and lung cancer. Presents with increasing shortness of breath today. Denies cough or sputum. Denies fever or chest pain. Nebulizers have not helped so far [facility] Medical History COPD (chronic obstructive pulmonary disease) Home Medications prednisone 20 mg tablet 60 mg (3 x 20 mg) PO DAILY #15 TABLETS 05/26/23 [Rx Last Taken Unknown] Allergy/AdvReac Type Severity Reaction Status Date / Time Penicillins Allergy Hives Verified 05/26/23 18:52 ibuprofen AdvReac Nausea Verified 05/26/23 18:52 Social History Smoking Status: Former smoker ROS ROS ED Constitutional Constitutional ED: Denies chills or fever(s) Eyes Eyes: Denies blurry vision ENT ENT ED: Denies ear pain Cardiovascular Cardiovascular: Denies chest pain Respiratory/Chest Respiratory/Chest: Reports cough and dyspnea Gastrointestinal Gastrointestinal: Denies abdominal pain Genitourinary Genitourinary ED: Denies dysuria Musculoskeletal Musculoskeletal: Denies arthralgias or back pain Integumentary Denies abscess Neurologic Neurologic: Denies headache(s) Psychiatric Psychiatric: Denies anxiety Endocrine Endocrinology: Denies cold intolerance Allergic/Immunologic Allergic/Immunologic ED: Denies mouth swelling EXAM Physical Exam Const Vital Signs: 05/26/23 18:50 05/26/23 18:54 05/26/23 19:15 Temperature 97.8 F Temperature Source Temporal Pulse Rate 83 89 102 H Respiratory Rate 34 H 23 H 20 H Respiratory Effort Respiratory Depth Respiratory Pattern Blood Pressure 141/89 H 141/89 H Blood Pressure Mean 106 106 Pulse Ox 100 97 Oxygen Delivery Method Room Air Room Air 05/26/23 19:27 05/26/23 19:32 Temperature 98.6 F Temperature Source Temporal Pulse Rate 97 Respiratory Rate 25 H Respiratory Effort Short of Breath Respiratory Depth Normal Respiratory Pattern Tachypnea Blood Pressure 147/81 H Blood Pressure Mean 103 Pulse Ox 96 Oxygen Delivery Method Room Air Room Air Positive well nourished and well developed General Appearance ED: well developed HEENT Reports moist mucous membranes Eyes EOMs intact bilaterally Resp Auscultation: diminished lung sounds Cardio regular rate, regular rhythm, S1 normal heart sound and S2 normal heart sound GI normal to inspection, nondistended, normoactive bowel sounds Extremity normal to inspection General Extremety ED: Negative for edema or tenderness General Extremity: Negative for edema Neuro oriented x3 Psych mental status grossly normal Skin no rashes or lesions noted MDM MDM MDM Narrative Medical decision making narrative: EKG showed sinus rhythm. Nonspecific T wave changes. No S1 Q3 T3 pattern. PERC negative. X-ray showed no acute abnormality. This was interpreted by the radiologist and myself. Basic labs unremarkable. Troponin normal. COVID and influenza testing negative. He was treated with a breathing treatment as well as Solu-Medrol. On reevaluation, lungs are clear. He is feeling better and requesting discharge. Continue nebulizers at home. We will prescribe a burst therapy of prednisone. Return for any new or worsening issues. Disposition discharged home Impression #1 COPD exacerbation Lab Data Attestation: I reviewed the patient's lab results. Labs: Laboratory Results - last 24 hr 05/26/23 19:25 WBC 8.2 RBC 5.34 Hgb 15.3 Hct 45.8 MCV 85.8 MCH 28.7 MCHC 33.4 RDW Std Deviation 41.5 RDW Coeff of Marques 13.5 Plt Count 295 MPV 10.5 Immature Gran % (Auto) 0.500 Neut % (Auto) 57.0 Lymph % (Auto) 31.3 Harper % (Auto) 8.1 Eos % (Auto) 2.5 Baso % (Auto) 0.6 Absolute Neuts (auto) 4.7 Absolute Lymphs (auto) 2.55 Nucleated RBC % 0 Sodium 140 Potassium 3.8 Chloride 108 H Carbon Dioxide 26.0 Anion Gap 6 BUN 13 Creatinine 0.95 Estim Creat Clear Calc 122.53 Est GFR (MDRD) Af Amer 117 Est GFR (MDRD) Non-Af 97 BUN/Creatinine Ratio 13.6 Glucose 97 Calcium 9.1 Troponin I High Sens 3 Radiography Diagnostic Testing: Clinical Impression(s) from Imaging Studies Chest X-Ray 05/26/23 19:35 IMPRESSION: No radiographic evidence of acute cardiopulmonary disease. Electronically Signed: Kady Peña MD at 19:51 EDT Reading Location ID and State: [facility] / [place] Tel , Service support , Discharge Plan Triage Chief Complaint: Shortness of Breath ED Provider: Juancho Holley Dx/Rx/DC Orders Instructions: ED Bronchitis with Wheezing (Adult) Prescriptions: New prednisone 20 mg tablet 60 mg PO DAILY Qty: 15 0RF Primary Care Provider: Dacia Camejo Referrals: Dacia Camejo MD [Primary Care Provider] - Disposition Disposition: Home, Self Care What to do if you have Problems For any increased pain, shortness of breath, bleeding, nausea or vomiting, chestpain, or any unexpected problems, contact your Primary Care Provider. Call [facility] ([phone]) or report to the closest Emergency Room. Call 911 if necessary. 05/26/232111 <Electronically signed by Juancho Holley MD> Cosigner Signature (if applicable): CC: Dr. Dacia Camejo MD ~ Signed [facility] Work Phone: 1(635) 682-983808-26-2023 Discharge summary Author Luther San [facility] May 05, 2023 10:43pm Note Date/Time May 05, 2023 9: 23pm [facility] Medical Records Department [address] [place] [address] Emergency Department Summary 05/05/23 MR#: [id number] Acct: [id number] Name: AMADO MARINELLI Rep #:[id number] : 1990 32 From: Luther San MD PCP: Dr. Gelacio Elliott MD Status :REG ER Location: ED HPI <DAILY Barcenas - Last Filed: 05/05/23 22:02> History of Present Illness Chief Complaint: Sore Throat Narrative Narrative: Patient is 32-year-old male with no significant medical history, patient presents emerged part with 2 days of sore throat. Patient states the pain is worse with swallowing. He denies any shortness of breath. Patient states that he does have some drainage, and sometimes he feels like he is choking. He denies any sick contacts, denies any fever or chills. Patient denies any sick contacts. [facility] <DAILY Barcenas - Last Filed: 05/05/23 22:02> [facility] Medical History (Updated 05/05/23 @ 22:[address] Luther San MD) COPD (chronic obstructive pulmonary disease) Home Medications NK 05/05/23 [History Last Taken Unknown] Allergy/AdvReac Type Severity Reaction Status Date / Time Penicillins Allergy Hives Verified 05/05/23 21:03 ibuprofen AdvReac Nausea Verified 05/05/23 21:03 Social History Smoking Status: Current every day smoker tobacco type: cigarettes ROS <DAILY Barcenas - Last Filed: 05/05/23 22:02> ROS ED ROS Narrative Constitutional: Negative for fever, chills, weight loss, weakness Eyes: Negative for vision loss, vision change, double vision ENT: Negative for any ear pain, congestion. Positive sore throat, painful swallowing Cardiovascular: Negative for any chest pain, tightness, palpitations Respiratory: Negative for any cough, sputum production, hemoptysis, dyspnea, dyspnea on exertion, orthopnea Gastrointestinal: Negative for any abdominal pain, nausea, vomiting, diarrhea, constipation, blood in stool, blood in vomit : Negative for any urinary frequency, dysuria, retention, blood in urine Muscle skeletal: Negative for any muscle joint pain, stiffness, myalgias, arthralgias, neck pain, back pain Neurological: Negative for any headache, syncope, numbness or tingling, dizziness Skin: Negative for any rashes, lumps, itching, abrasions, lacerations Psychiatric: Negative for any depression, anxiety, stress, suicidal ideation, homicidal ideation Hematologic: Negative for any easy bruising, excessive bruising, easy bleeding Allergies: Negative for any eczema, hives, rash EXAM <DAILY Barcenas - Last Filed: 05/05/23 22:02> Physical Exam Narrative Exam Narrative: Vital signs reviewed. HEET: Head normocephalic atraumatic, TMs clear bilaterally. Posterior pharynx is clear, moist mucous membranes. Nares clear bilaterally. Tonsils show no significant signs of inflammation. There is no exudate. Patient does have somecobblestone appearance to the back of his throat consistent with some drainage. Patient has no stridor. No crepitus. No unilateral swelling. Neck: Supple with no lymphadenopathy or tenderness. No signs of meningismus, negative jolt sign. Cardiac: Regular rate and rhythm no murmurs gallops or rubs, equal peripheral pulses bilaterally. Respiratory: Lungs clear to auscultation bilaterally. No chest tenderness. Abdomen: Soft, nontender, nondistended. No abdominal bruit or pulsatile masses. No hepatosplenomegaly Extremities: No peripheral edema, no signs of gross trauma or deformity. Activefull range of motion of all extremities. Neuro: Cranial nerves II through XII intact, no focal neurological deficits. Skin: Clean dry and intact with no rash, purpura, petechiae, vesicles or pustules. Backs/flank: No CVA tenderness, no midline spinal tenderness, no deformity. Psych: Normal mood and affect. No SI, HI or acute psychosis. Const Vital Signs: 05/05/23 21:00 05/05/23 21:02 Temperature 97.5 F L 97.5 F L Temperature Source Temporal Temporal Pulse Rate 67 67 Respiratory Rate 16 16 Blood Pressure 112/79 112/79 Blood Pressure Mean 90 90 Pulse Ox 97 97 Oxygen Delivery Method Room Air Room Air <Dr. Luther San MD - Last Filed: 05/05/23 22:44> Physical Exam Const Vital Signs: 05/05/23 21:00 05/05/23 21:02 Temperature 97.5 F L 97.5 F L Temperature Source Temporal Temporal Pulse Rate 67 67 Respiratory Rate 16 16 Blood Pressure 112/79 112/79 Blood Pressure Mean 90 90 Pulse Ox 97 97 Oxygen Delivery Method Room Air Room Air MDM <DAILY Barcenas - Last Filed: 05/05/23 22:02> MDM Treatment and Re-Evaluation :: Patient appears generally well, patient appears nontoxic, vital signs are stable. Patient presents to the emergency department with 2 days of sore throat. Patient denies any fever or chills. Patient is in no respiratory distress. Patient will have a rapid strep completed. My suspicion of strep is low. Patient has no unilateral swelling, no evidence of peritonsillar abscess. Patient sore throat could be coming from postnasal drainage. Patient continues to complain about his sore throat, patient's rapid strep was negative. Patient secondary to difficulty swallowing, increased pain, patient received a CT scan of the soft tissue neck with IV contrast. <Dr. Luther San MD - Last Filed: 05/05/23 22:44> [facility] MDM Narrative Medical decision making narrative: I have personally performed a face to face assessment of the patient and have reviewed the MARVA Note. I performed a substantive portion of the visit including all aspects of the following. My amaro findings include: History is 32-year-old male complaint sore throat. Able to swallow. Complaining primarily of pain. Evaluated patient with our DITCHING MACHINE ENGINEER. Exam is [32-year-old male vital signs stable afebrile. Pulse ox 97% room air. Patient is not septic or toxic. Is not hypoxic. He is in no distress. H EENT exam posterior pharynx normal. TMs normal. Able to swallow. No drooling. No stridor. Mild tracheal tenderness. No lymphadenopathy. No meningismus. No swelling. Lungs clear to auscultation bilaterally. Heart regular rhythm rate about 70 no murmur. Chest wall nontender. Abdomen soft nontender. Moving all 4 extremities. Nontender no edema. He is awake and alert.] Medical Decision Making [rapid strep was negative. Patient was able to swallow a glass of water but was complaining of substantial pain. I had ordered a CT soft tissue of his neck with IV contrast. Patient was only here a little over an hour. He got upset did not want to wait for the test and walked out and did not even wait to sign the discharge paperwork.] Other additions or changes: [None] Discharge Plan Triage Chief Complaint: Sore Throat ED Midlevel Provider: Yehuda Olvera ED Provider: Luther San Dx/Rx/DC Orders Clinical Impression: Eloped from emergency department, Pharyngitis Prescriptions: No Action NK Primary Care Provider: Gelacio Elliott Referrals: Gelacio Elliott MD [Primary Care Provider] - Disposition Disposition: Elopement What to do if you have Problems For any increased pain, shortness of breath, bleeding, nausea or vomiting, chestpain, or any unexpected problems, contact your Primary Care Provider. Call [facility] ([phone]) or report to the closest Emergency Room. Call 911 if necessary. 05/05/232242 <Electronically signed by Luther San MD> Cosigner Signature (if applicable): CC: Dr. Gelacio Elliott MD ~ Signed [facility] Work Phone: 1(590) 190-727607-10-2023 Hospital Discharge instructions Patient Education 03/18/2023 23:15:40 Shoulder Contusion [...] talk with your healthcare provider before using thesemedicines. Also talk with your provider if you [...] t able to do your daily activities 8079-7525 [employer]. [address] [place] [address], [place] [address]. All rights reserved. This information is not intended as a substitute for professional medical care. Always follow yourhealthcare professional's instructions. Follow Up Care 03/18/2023 21:36:39 With:Ne Mattson [phone] Address: When:2-4 days With:DACIA CAMEJO MD Address: [address] [place] [address]- When:2-4 days [facility] 07-09-2023 Note Discharge Instructions Thank you for allowing [facility] to assist you with your healthcare needs. The following is importantdischarge information regarding your hospital visit. Diagnosis from Today's Visit Contusion of right shoulder What to Do Next Instructions from Your Care Team Discharge Home Equipment - Ordered -- Sling, Arm Right, 99 month(s), 03/18/23 23:15:00 EDT Post Acute Orders No qualifying data available. You Need to Schedule the Following Appointments Follow Up with Ne Mattson [phone] When Within 2-4 days Where: Follow Up with DACIA CAMEJO MD When Within 2-4 days Where: [address] [place] [address]- Allergies penicillin Medications Please ask your primary doctor or pharmacist before taking any other medication not listed, including over the counter drugs, herbal medications, vitamins and or supplements as they may interact withyour home medications. What How Much When Why [...] talk with your healthcare provider before using thesemedicines. Also talk with your provider if you [...] t able to do your daily activities 9029-9049 [employer]. [address] [place] [address], [place] [address]. All rights reserved. This information is not intended as a substitute for professional medical care. Always follow yourhealthcare professional's instructions. Additional Information VACCINATE! IT SAVES LIVES! Members of the community who have not yet received the COVID-19 vaccine and would like to receive it can visit one of [facility] vaccine clinics. There are many vaccine clinic locations within the [facility]. For locations and available times, please visit [email or web address]/. It is important to note that some COVID mobile vaccine clinics are held outdoors and may be canceled in rainy or stormy conditions. To learn more about pediatric vaccinations (ages 5-11), we invite you to visit the [facility] webpage. [email or web address]://www.[email or web address]/[email or web address] stions.htmlTo learn more about the COVID-19 vaccine, we invite you to visit the CDC website for a list of frequently asked questions. https://www.cdc.gov/coronavirus/2019-ncov/vaccines/faq.html [facility] Patient Portal Access Instructions: Stay connected with your healthcare team and access your personal medical information anytime with the [facility] Patient Portal. If you would like a full copy of your medical records please contact the [facility] Medical Records Department Sunday through Sunday between 8a.m. and 4:30p.m. Please follow the directions below to access the portal: 1.Access the email account you provided upon registration to the [facility].2.Look for an invitation email from [facility].3.Open the email and access the invitation link: Accept Invitation to [facility]4.Fill in the required mayer to create your account. Sign into [email or web address] with your username and password that you [...] you will allow to register on the [facility] Patient Portal for access to your information. You can also access the [facility] Patient Portal on the [employer] marva. Simply click on Health Records under Kiddy and then click on the [facility] logo. HOW TO SAFELY DISPOSE OF PRESCRIPTION MEDICATIONS Please use one of the following methods to safely dispose of your unused medications. 1.Use a drug disposal kit: the drug disposal pouch allows you to safely discard your old and unuseddrugs. Ask your nurse to give you one when you are discharged.2.Visit a local take-back location: Many local pharmacies and police departments have programs that collect old and unwanted prescriptiondrugs. Call your local pharmacy or go to http://PathGroup.PalindromX/[email or web address] to find one close to you.3.Make use of household items: Use cat litter or old coffee grounds to dispose medications if other options arenot available. Mix your drugs with these household products, seal them in an airtight container andthrow it into the garbage. Call [facility]: [phone] to be sure your drugs can be [...] drowsiness, such as benzodiazepines, also known as benzos,including diazepam and alprazolam, muscle relaxants or sleep aids. Never sell or share prescriptionopioids. This is illegal. Store opioids in a secure place and out of reach of others (including children, family, friends and visitors). The last page(s) of this document has been signed and retained as a CHART COPY Signatures Patient Education Materials Shoulder Contusion Medication Leaflets My discharge plan and instructions have been reviewed and explained to me and I,AMADO MARINELLI understand my current condition and have read and understand these discharge instructions. I have received a written copy of the plan/instructions. If I have questions, I am aware that I should contact my doctor. 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 Signature: Date/Time: Relationship to Patient: Witness Name/Signature: Date/Time: [facility]07-09-2023 Note ORIGINAL EXAMINATION: TWO XRAY VIEWS OF [...] 03/18/2023 11:06:44 PM Ordering Provider: JORDYN COFFMAN [facility]07-09-2023 Note ORIGINAL EXAMINATION: TWO XRAY VIEWS OF [...] Sign Date: 03/18/2023 11:06:44 PM Ordering Provider: [facility]05-01-[address] Martinez [facility] January 08, 2023 7:45pm Note Date/Time January 08, 2023 6:26pm [facility] Medical Records Department [address] [place] [address] Emergency Department Summary 01/08/23 MR#: [id number] Acct: [id number] Name: AMADO MARINELLI VANDANA Rep #:[id number] : 1990 32 From: Jorge L Martinez MD PCP: Dr. Gelacio Elliott MD Status :REG ER Location: ED HPI HPI - GI History of Present Illness Chief Complaint: Abd Pain Narrative Narrative: 32-year-old male presents with his mother because he states I think I have an ulcer. He complains of epigastric pain and burning that he is had for the lastfew weeks. He used to take ibuprofen for pain. He denies any hematemesis, but did state he vomited 3 times today from the pain. No bloody bowel movements. No fevers or chills. He complains of burning sensation all the way up through his chest. No diaphoresis or shortness of breath. States he does not wake up with a sour taste in his mouth. No exacerbating or alleviating factors. [facility] Medical History (Updated 01/08/23 @ 19:43 by Jorge L Martinez MD) COPD (chronic obstructive pulmonary disease) Home Medications omeprazole 20 mg capsule,delayed release 20 mg PO BID #60 caps 01/08/23 [Rx Last Taken Unknown] Allergy/AdvReac Type Severity Reaction Status Date / Time Penicillins Allergy Hives Verified 01/08/23 17:31 ibuprofen AdvReac Nausea Verified 01/08/23 17:31 Social History Smoking Status: Current every day smoker tobacco type: cigarettes ROS ROS ED ROS Narrative Constitutional: No fever, no chills. HEENT: No sore throat. No neck pain. No loss of vision. No rhinorrhea. Cardiovascular: No chest pain. No palpitations. No pedal edema. Respiratory: No cough, no shortness of breath. Abdominal: Positive epigastric abdominal pain. Positive nausea and vomiting today x3, no hematemesis. No diarrhea. Burning sensation radiating up towards chest. Genitourinary: No dysuria. No hematuria. Musculoskeletal: No myalgias. No arthralgias. Neurologic: No headaches. No dizziness. No lightheadedness. Skin: No rash. No change in color. Psychiatric: No depression. No anxiety. EXAM Physical Exam Narrative Exam Narrative: Afebrile. Vital signs noted. HEENT: Normocephalic. Atraumatic. PERRL, EOMI. Neck soft and supple. No pointtenderness or step off. Cardiovascular: Regular rate and rhythm. No murmurs, rubs, or gallops appreciated. Respiratory: No tachypnea. Lungs clear to auscultation bilaterally. Gastrointestinal: Abdomen soft, mild tenderness in epigastrium, negative Marques sign, with normoactive bowel sounds. No rebound or guarding. Neurological: Awake. Alert. Nonfocal, nonlateralizing. Skin: No rash. Normal color. No pallor. Musculoskeletal: No pedal edema. Full range of motion extremities. Const Vital Signs: 01/08/23 17:32 Temperature 98.2 F Temperature Source Temporal Pulse Rate 97 Respiratory Rate 16 Blood Pressure 131/92 H Blood Pressure Mean 105 Pulse Ox 99 Oxygen Delivery Method Room Air MDM MDM MDM Narrative Medical decision making narrative: In the differential diagnosis is gastritis versus peptic ulcer disease versus GERD. He may also have a pancreatitis. Lower on the differential diagnosis is gallstone pancreatitis as he does not have tenderness in the right upper quadrant, and he is not jaundiced, no fever. I will obtain laboratory work in the form of CBC, CMP, and lipase. He will be given a GI cocktail. If he shows improvement with this I have higher suspicion for gastritis versus peptic ulcer disease. He will be started on omeprazole and given the number to Dr. Pryor with gastroenterology for follow- up. I reviewed the patient's laboratory work, he has a normal white count of 6.4, hemoglobin normal at 15.9, hematocrit 47.5, normal platelet count 293. CMP is grossly unremarkable except for glucose of 107 with a normal anion gap of 7. BUN normal at 13 with creatinine 0.8. LFTs show slight elevation with an AST of51 and an ALT greater than 100. I think this is more nonspecific, may be from vomiting. Patient is not jaundiced. I do not feel imaging is indicated. His lipase is within normal limits. Hence, I do feel he probably has more gastritisversus peptic ulcer disease. Upon repeat examination at approximately 1940, he is resting in bed comfortably, stating he feels improved. I wrote him a prescription for omeprazole to take 20 mg twice a day for the next month. He will follow-up with gastroenterology as soon as possible. He was told to avoid smoking and avoid NSAID use. I do not feel he requires observation. Disposition is discharged home in stable condition. History & Record Review Discussion w/independent historian: Patient and Family Additional record(s) reviewed:: Prior outpatient record Lab Data Attestation: I reviewed the patient's lab results. Labs: Laboratory Results - last 24 hr 01/08/23 01/08/23 19:00 19:00 WBC 6.4 RBC 5.60 Hgb 15.9 Hct 47.5 MCV 84.8 MCH 28.4 MCHC 33.5 RDW Std Deviation 40.1 RDW Coeff of Marques 13.1 Plt Count 293 MPV 10.4 Immature Gran % (Auto) 0.500 Neut % (Auto) 53.2 Lymph % (Auto) 32.1 Harper % (Auto) 10.6 H Eos % (Auto) 2.7 Baso % (Auto) 0.9 Absolute Neuts (auto) 3.4 Absolute Lymphs (auto) 2.05 Nucleated RBC % 0 Sodium 140 Potassium 4.1 Chloride 105 Carbon Dioxide 28.0 Anion Gap 7 BUN 13 Creatinine 0.84 Estim Creat Clear Calc 146.79 Est GFR (MDRD) Af Amer 136 Est GFR (MDRD) Non-Af 112 BUN/Creatinine Ratio 15.5 Glucose 107 H Calcium 9.6 Total Bilirubin 0.30 AST 51 H ALT 105 H Alkaline Phosphatase 87 Total Protein 6.7 Albumin 3.5 Globulin 3.2 Albumin/Globulin Ratio 1.1 Lipase 45 Discharge Plan Triage Chief Complaint: Abd Pain ED Provider: Jorge L Martinez Dx/Rx/DC Orders Clinical Impression: Gastritis, Peptic ulcer disease, Epigastric pain Instructions: ED Gastritis (Adult), ED PUD, ED Epigastric Pain Uncertain Cause Prescriptions: New omeprazole 20 mg capsule,delayed release(DR/EC) 20 mg PO BID Qty: 60 0RF Primary Care Provider: Gelacio Elliott Referrals: Gelacio Elliott MD [Primary Care Provider] - Friend,DO Trung [Med Staff - Active Staff] - As soon as possible Activity Restrictions/Additional Instructions: Stop smoking. Avoid NSAID use. Take medication as prescribed. Disposition Disposition: Home, Self Care What to do if you have Problems For any increased pain, shortness of breath, bleeding, nausea or vomiting, chestpain, or any unexpected problems, contact your Primary Care Provider. Call [facility] ([phone]) or report to the closest Emergency Room. Call 911 if necessary. 01/08/231944 <Electronically signed by Jorge L Martinez MD> Cosigner Signature (if applicable): CC: Dr. Gelacio Elliott MD ~ Signed [facility] Work Phone: [phone] 862-667010-15-2022 Hospital Discharge instructions* Discharge Instructions* Kyra Nguyen MD - 06/24/2022 10:30 AM EDT ED due to chest pain, EKG, and chest x-ray actually abnormalities. You are safe to go home at this time. Please return to the ED if suddenly worsening chest pain, shortness of breath, or any other acute concerns. Provide information to follow-up with a primary care doctor, call them to establish. Needed. * Attachments The following attachments cannot be sent through Care Everywhere. * Pleurisy (Afghan) [facility] Work [facility]: [facility] + Plan note No data available for this section [facility] Evaluation noteNo assessment information available [facility] Work Phone: Evaluation note* Diagnosis Pleurisy- Primary Pleurisy without mention of effusion or current tuberculosis documented in this encounter [facility] Work Phone: Evaluation note* Diagnosis Influenza-like illness- Primary Influenza with other respiratory manifestations Acute non-recurrent sinusitis, unspecified location [facility]* Diagnosis Chest tightness- Primary Other chest pain documented in this encounter [facility] note* Diagnosis Sinobronchitis- Primary Unspecified sinusitis (chronic) Exposure to pneumonia Contact with or exposure to other viral diseases History of COPD Personal history of other diseases of respiratory system documented in this encounter [facility] note* Diagnosis Gastroesophageal reflux disease, unspecified whether esophagitis present- Primary Nausea Nausea alone Tobacco use disorder Polysubstance abuse (HCC) Other, mixed, or unspecified nondependent drug abuse, unspecified Bipolar affective disorder, remission status unspecified (HCC) documented in this encounter [facility] note* Diagnosis Nausea Nausea alone Gastroesophageal reflux disease, unspecified whether esophagitis present documented in this encounter [facility] note* Diagnosis Pre-op examination- Primary Preoperative examination, unspecified Gastroesophageal reflux disease, unspecified whether esophagitis present Pre-op examination Preoperative examination, unspecified Tobacco use disorder Mild intermittent asthma without complication (HCC) Unspecified asthma Tobacco use disorder Asthma (HCC) Unspecified asthma * Assessment & Plan Note - Loan Caraballo APRN.CNP - 01/23/2025 8:16 AM EDT Associated Problem(s): Asthma (HCC) Pt uses rescue inhaler as needed - twice a month. Denies hospitalization or pneumonia in the last 6months. * Assessment & Plan Note - Loan Caraballo APRN.CNP - 01/23/2025 8:14 AM EDT Associated Problem(s): Tobacco use disorder started smoking 17yo Smokes 0.25 PPD since 11/2024 Smoked 1-2 PPD x 17 years * Assessment & Plan Note - Loan Caraballo APRN.CNP - 01/23/2025 7:30 AM EDT Associated Problem(s): Gastroesophageal reflux disease EGD today * Assessment & Plan Note - Loan Caraballo APRN.CNP - 01/23/2025 7:30 AM EDT Associated Problem(s): Pre-op examination Medical conditions which may affect the perioperative course were address in today's visit. documented [facility]* Diagnosis Pre-op examination- Primary Preoperative examination, unspecified Gastroesophageal reflux disease, unspecified whether esophagitis present Pre-op examination Preoperative examination, unspecified Tobacco use disorder Mild intermittent asthma without complication (HCC) Unspecified asthma Tobacco use disorder Asthma (HCC) Unspecified asthma Gastroesophageal reflux disease, unspecified whether esophagitis present [facility] Diagnosis Pre-op examination- Primary Preoperative examination, unspecified Gastroesophageal reflux disease, unspecified whether esophagitis present Pre-op examination Preoperative examination, unspecified Tobacco use disorder Mild intermittent asthma without complication (HCC) Unspecified asthma Tobacco use disorder Asthma (HCC) Unspecified asthma Gastroesophageal reflux disease with esophagitis without hemorrhage- Primary Hiatal hernia Diaphragmatic hernia without mention of obstruction or gangrene Esophageal spasm Dyskinesia of esophagus Tobacco use Tobacco use disorder Polysubstance abuse (HCC) Other, mixed, or unspecified nondependent drug abuse, unspecified Bipolar affective disorder, remission status unspecified (HCC) documented in this encounter [facility] note* Diagnosis Abdominal pain, epigastric- Primary Nausea and vomiting, unspecified vomiting type documented in this encounter [facility] Work Phone: Evaluation note* Diagnosis Epigastric pain- Primary Abdominal pain, epigastric documented in this encounter [facility] Work Phone: Hospital Discharge instructions Additional Instructions Stop smoking. Avoid NSAID use. Take medication as prescribed.[facility] Work Phone: Hospital Discharge instructions* Attachments The following attachments cannot be sent through Care Everywhere. * Nausea and Vomiting, Adult ED (Afghan) * Abdominal Pain, Adult ED (Afghan) [facility] Work Phone: Hospital Discharge instructions* Attachments The following attachments cannot be sent through Care Everywhere. * Abdominal Pain, Adult ED (Afghan) [facility] Work Phone: Reason for referral (narrative)* Outpatient Procedure (Routine) - Pending Review Specialty Diagnoses / Procedures Referred By Kallie boone Ref[facility] To [facility] Diagnoses Chest tightness Procedures ECG COMPLETE ECG ROUTINE ECG W/LEAST 12 LDS W/I&R Celi Keane PA-C [address] [place] [address] [facility] [address] [address] Referral ID Status Reason Start Date Expiration Date Visits Requested Visits Authorized [id number] Pending Review Auto-Generat ed Referral 03/11/2024 03/11/2025 1 1 [facility] for referral (narrative)No reason for referral information availableWSelect [facility] Work Phone: Reason for visit Narrative* Diagnostic Procedure Only (Routine) - Closed Specialty Diagnoses / Procedures Referred By Kallie boone Referred To Contact [facility] Diagnoses Nausea Procedures NM GASTRIC EMPTYING SOLID GASTRIC EMPTYING STUDY Harriet Rivera MD [address] [address] Phone: tel: fax: [facility] [address] [place] [address] Phone: tel: Referral ID Status Reason Start Date Expiration Date V isits Requested Visits Authorized [id number] Closed Auto-Generate d Referral 11/04/2024 09/09/2025 1 1 [facility] for visit Narrative* Auth/Cert (Routine) Specialty Diagnoses / Procedures [facility]erred To Contact Diagnoses Gastroesophageal reflux disease, unspecified whether esophagitis present Gastroesophageal reflux disease, unspecified whether esophagitis present [K21.9] Procedures ESOPHAGEAL MOTILITY STUDY W/INTERP&RPT ESOPHAGEAL MANOMETRY [facility] [address] [place] [address] Referral ID Status Reason Start Date Expiration Date Visits Re quested Visits Authorized [id number] 1 1 [facility] for visit Narrative* Outpatient Procedure (Routine) - Closed Specialty Diagnoses / Procedures Referred By Contjen t Referred To Contact [facility] Diagnoses Gastroesophageal reflux disease, unspecified whether esophagitis present Procedures EGD - THERAPEUTIC, EUS, OR TUBE INTERVENTIONS EGD - THERAPEUTIC, EUS, OR TUBE INTERVENTIONS ESOPHAGOGASTRODUODENOSC OPY TRANSORAL DIAGNOSTIC Harriet Rivera MD 1 [facility] [address] [place] [address] Phone: tel: fax: [facility] [address] [place] [address] Referral ID Status Reason Start Date Expiration Date V isits Requested Visits Authorized [id number] Closed Auto-Generate d Referral 10/23/2024 10/23/2025 1 1 [facility] for visit Narrative* Diagnostic Procedure Only (Routine) - Closed Specialty Diagnoses / Procedures [facility] Referred To Contact [facility] Diagnoses Gastroesophageal reflux disease, unspecified whether esophagitis present Procedures XR ESOPHAGRAM RADIOLOGIC EXAM ESOPHAGUS SINGLE CONTRAST STUDY Harriet Rivera MD 1 [facility] [address] [place] [address] Phone: tel: fax: [place] [address] Referral ID Status Reason Start Date Expiration Date V isits Requested Visits Authorized [id number] Closed Auto-Generate d Referral 10/23/2024 11/22/2025 1 1 [facility] Summary Purpose Family History No Family History Records Found Relationship Condition Age at Onset Recorded Date/T radha Unknown Family History?No pe rtinent history Unknown May 19, 2015 2:59pm Family History?No pe rtinent history Unknown August 19, 2015 9:08pm Relationship Condition Age at Onset Recorded Date/T radha Unknown Family History?No pe rtinent history Unknown May 19, 2015 1:59pm Family History?No pe rtinent history Unknown August 19, 2015 8:08pm Advance Directives No Advanced Directives Records FoundDocuments on File Type Date Recorded 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 Advance Directives and Living Will Power of Spectroscopist Documents on File Type Date Recorded 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 anation ACP-Advance Directive ACP-Power of Spectroscopist Documents on File Type Date Recorded 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 anation ACP-Advance Directive ACP-Power of Spectroscopist Advance Directive Response Recorded Date/ Time Advance Directives No May 2:13pm Living Will No April 01, 2022 7:36pm Power of Spectroscopist No April 01 7:36pm Advance Directive Response Recorded Date/ Time Advance Directives No May 2:13pm Living Will No January 08, 2023 6: 21pm Power of Spectroscopist No January 08, 2023 6:21pm Advance Directive Response Recorded Date/ Time Advance Directives No May 2:13pm Living Will No May 05 9:18pm Power of Spectroscopist No May 05 023 9:18pm Advance Directive Response Recorded Date/ Time Advance Directives No May 2:13pm Living Will No May 26, 2023 6:53pm Power of Spectroscopist No May 6:53pm Advance Directive Response Recorded Date/ Time Advance Directives No May 1:13pm Living Will No October 17 11:15am Power of Spectroscopist No October 17, 2023 11:15am Advance Directive Response Recorded Date/ Time Advance Directives No May 1:13pm Living Will No October 24 024 1:39pm Power of Spectroscopist No October 24, 2023 1:39pm Advance Directive Response Recorded Date/ Time Living Will No August 29 024 3:50pm Do you have a Healthcare Power of Spectroscopist? No August 29, 2024 3:50pm Living Will No September 17 12:20pm Do you have a Healthcare Power of Spectroscopist? No September 17, 2024 12:20pm Living Will No December 27, 2024 9:57pm Do you have a Healthcare Power of Spectroscopist? No December 27, 2024 9:57pm Advance Directives No May 2:13pm Advance Directive Response Recorded Date/ Time Living Will No December 27, 2024 9:57pm Do you have a Healthcare Power of Spectroscopist? No December 27, 2024 9:57pm Advance Directives No May 2:13pm Discharge Instructions * Instructions* Seng Glover MD - 12/20/2019 Can also use Advil and Tylenol Return for worse facial swelling or high fever * Attachments The following attachments cannot be sent through Care Everywhere. * Tooth and Gum Pain (Afghan) * Tooth: Abscessed (Afghan) * Tooth Decay (Afghan) documented in this encounter* Instructions* La Black MD - 06/08/2020 Ice her hand 20 minutes on 20 minutes off. If your fingers began to get more tingly, then you need to remove the Simone bandage and elevate her hand. Follow-up with the primary care doctor we referred you to. * Attachments The following attachments cannot be sent through Care Everywhere. * Contusion: Hand (Afghan) documented in this encounter* Instructions* Shaunna Cohen MD - 08/02/2020 Rest and ice right elboe * Attachments The following attachments cannot be sent through Care Everywhere. * Strain or Sprain (Afghan) * Elbow Sprain (Afghan) documented in this encounter* Instructions* Myah Merida MD - 09/25/2020 Apply heat to the painful areas with a heating pad. Return to the emergency Department if you develop pain with flexion of your fingers or swelling worsens. * Attachments The following attachments cannot be sent through Care Everywhere. * Cellulitis (Afghan) documented in this encounter Assessments Diagnosis Pain, [...] right hand including fingers, initial encounter La Black MD [address] [place] [address] [facility] [address] [place] [address] Scheduling Instructions [facility] [address] [place] [id number] Chief Complaint and Reason for Visit Chief Complaint LOWER Chief Complaint ABDOMINAL PAIN Chief Complaint ABDOMINAL PAIN SORE THROAT Chief Complaint SORE THROAT SHORTNESS OF BREATH Chief Complaint BACK Chief Complaint BACK MENTAL HEALTH Chief Complaint Admit Date PREOP September 02, 2024 12:59pm Robotic Laparoscopic, Maxwell Fundoplicat ion September 15, 2024 5:57am Robotic Laparoscopic, Maxwell Fundoplicat ion September 15, 2024 7:02am abd pain September 17, 2024 11 :02am INCISIONS ARE STABBING HIM September 22, 2024 10:12am SYNCOPE,BARRIOS December 27, 2024 9:4 4pm Reason for Visit Admit Date Status post laparoscopic procedure Janua 2024 10:12am Chief Complaint Admit Date SYNCOPE,BARRIOS December 27, 2024 9:4 4pm UPPER February 09, 2025 4:23p m Additional Source Comments (unrecognized sect ion and content) No Status Records FoundNo Status Records FoundNo Status Records FoundNo Status Records FoundNo Status Records FoundNo Status Records FoundNo Status Records FoundNo Status Records FoundNo Status Records FoundNo Status Records FoundNo Status Records FoundNo Status Records FoundNo Status Records Found INFORMATION SOURCE (unrecogn ized section and content) DATE CREATED AUTHOR 11/23/2018 [facility] DATE CREATED AUTHOR AUTHOR'S ORGANIZ ATION 09/28/2020 [facility] DATE CREATED AUTHOR AUTHOR'S ORGANIZ ATION 07/03/2022 [facility] DATE CREATED AUTHOR AUTHOR'S ORGANIZ ATION 07/22/2022 [facility] DATE CREATED AUTHOR AUTHOR'S ORGANIZ ATION 11/25/2023 [facility] ([place]) DATE CREATED AUTHOR AUTHOR'S ORGANIZ ATION 03/16/2024 [facility] DATE CREATED AUTHOR AUTHOR'S ORGANIZ ATION 02/11/2025 [facility] DATE CREATED AUTHOR AUTHOR'S ORGANIZ ATION 02/14/[address] [facility] DATE CREATED AUTHOR AUTHOR'S ORGANIZ ATION 03/18/2025 [facility] DATE CREATED AUTHOR AUTHOR'S ORGANIZ ATION 03/24/2025 [facility] DATE CREATED AUTHOR AUTHOR'S ORGANIZ ATION 04/17/2025 [facility] DATE CREATED AUTHOR AUTHOR'S ORGANIZ ATION 04/17/2025 [facility] DATE CREATED AUTHOR AUTHOR'S ORGANIZ ATION 04/20/2025 [facility] Reason for Visit (unrecogniz ed section and content) Reason Comments Dental Pain Reason Comments Hand Injury Reason Comments Hand Injury Reason Comments Arm Pain forearm/elbow Reason Comments Insect Bite pt. reports he was b it by a spider 2 days ago on palm of hand Reason Comments Shortness of Breath Pt came in from [place] through EMS with SOB. Pt says he also has pain is in the shoulder blades. Reason Comments Cough Cough, congestion, f ever and BARRIOS x 1 week Reason Comments Vomiting Reason Comments Results Reason Comments Chest Pain 03/10/24 Reason Comments Cough Headache, chest loyd estion, tightness in chest, x 2 days Reason Comments New Patient Reason Comments Appointment EGD FUENTES MANO Reason Comments Patient Question Patient Update Reason Comments Returning Patient's Call Patient Question Reason Comments Follow Up Reason Comments Patient Question Reason Comments Appointment Needs follow up appo intment Reason Comments Established Patient Reason Comments Abdominal Pain Nausea Vomiting Complains of epigast mariam pain, N/V since last night at 10pm. Unable to hold anything down. Has known hiatal hernia that is schedule for surgery next month. 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 Reports hx of hiatal hernia with surgery scheduled next week, mildly SOB. EKG upon arrival Ordered Prescriptions (unrec ognized section and content) Prescription Sig Dispensed Refills Start Date End Da te sulfamethoxazole-trimeth oprim (BACTRIM DS) 800-160 MG per tablet Take 2 tablets by mouth 2 times daily for 7 days 28 tablet 0 09/25/2020 10/02/2020 clindamycin (CLEOCIN) 300 MG capsule Take 1 capsule by mouth 3 times daily for 7 days 21 capsule 0 09/25/2020 10/02/2020 Goals (unrecognized section and content) Goals may be documented in a n alternate sectionGoals may be documented in an alternate section No data available for this sectionGoals may be documented in an alternate sectionGoals may be documented in an alternate section No data available for this sectionGoals may be documented in an alternate sectionGoals may be documented in an alternate section No data available for this sectionGoals may be documented in an alternate section No data available for this section Care Teams (unrecognized sec tion and content) Team Status: Active Member Role Status Dates Jennifer HOLLAND, DITCHING MACHINE ENGINEER-C Primary Care Provider Activ e Team Status: Inactive Member Role Status Dates Jennifer HOLLAND, DITCHING MACHINE ENGINEER-C Primary Care Provider Activ e Start: December 27, 2024 End: December 28, 2024 Dr. Rupert Hernández MD Attending Provider Active Start: December 27, 2024 End: December 28, 2024 Dr. Rupert Hernández MD Referring Provider Active Start: December 27, 2024 End: December 28, 2024 Dr. Rupert Hernández MD Emergency Provider Active Start: December 27, 2024 End: December 28, 2024 Team Status: Inactive Member Role Status Dates Jennifer HOLLAND, DITCHING MACHINE ENGINEER-C Primary Care Provider Activ e Start: February 09, 2025 End: February 09, 2025 Ed Physician Provider Emergency Provider Active Start: February 09, 2025 End: February 09, 2025 Team Status: Active Member Role Status Dates Dr. Gelacio Elliott MD Family Provider Active Dr. Gelacio Elliott MD Primary Care Provider Actisaiah pretty Team Status: Inactive Member Role Status Dates Dr. Gelacio Elliott MD Primary Care Provider Acti ve Jorge L Martinez MD Emergency Provider Active Team Status: Inactive Member Role Status Dates Dr. Gelacio Elliott MD Primary Care Provider Acti ve Jorge L Martinez MD Attending Provider, Emergency Provid er Active Team Status: Inactive Member Role Status Dates Dr. Gelacio Elliott MD Primary Care Provider Acti ve Dr. Luther San MD Emergency Provider Active Team Status: Active Member Role Status Dates Dr. Gelacio Elliott MD Family Provider Active Dr. Dacia Camejo MD Primary Care Provider Active Team Status: Inactive Member Role Status Dates Dr. Gelacio Elliott MD Primary Care Provider Acti ve Dr. Luther San MD Attending Provider, Emergency Pro vider Active Team Status: Inactive Member Role Status Dates Dr. Juancho Holley MD Emergency Provider Active Dr. Dacia Camejo MD Primary Care Provider Active Team Status: Inactive Member Role Status Dates Dr. Dacia Camejo MD Primary Care Provider Active Dr. Dayron Lopez MD Emergency Provider Active Team Status: Inactive Member Role Status Dates Dr. Dacia Camejo MD Primary Care Provider Active Dr. Dayron Lopez MD Attending Provider, Emergency Provider Active Team Status: Inactive Member Role Status Dates Dr. Dacia Camejo MD Primary Care Provider Active Dr. Cheo Short DO Emergency Provider Active Price Changer Relationship Specialty Start Date End Date Dacia Camejo [address] [facility] [address] [place] [address] PCP - General Family Medicine 03/14/24 Price Changer Relationship Specialty Start Date End Date Dacia Camejo [address] [place] [address] PCP - General Family Medicine 03/14/24 Price Changer Relationship Specialty Start Date End Date Dacia Camejo [address] [place] [address] PCP - General Family Medicine 03/14/24 Price Changer Relationship Specialty Start Date End Date Dacia Camejo [address] [address] [place] [address] PCP - General Family Medicine 03/14/24 Price Changer Relationship Specialty Start Date End Date Dacia Camejo [address] [place] [address] PCP - General Family Medicine 03/14/24 Team Status: Active Member Role Status Dates Jennifer HOLLAND, DITCHING MACHINE ENGINEER-C Primary Care Provider Activ e Start: September 02, 2024 End: September 02, 2024 Dr. Gabriel Arreola MD Attending Provider Active S tart: September 02, 2024 End: September 02, 2024 Dr. Sancho Rodriguez MD Referring Provider Active Start: September 02, 2024 End: September 02, 2024 Team Status: Inactive Member Role Status Dates Jennifer WRENC, DITCHING MACHINE ENGINEER-C Primary Care Provider Activ e Start: September 15, 2024 End: September 15, 2024 Dr. Sancho Rodriguez MD Attending Provider Active Start: September 15, 2024 End: September 15, 2024 Dr. Sancho Rodriguez MD Referring Provider Active Start: September 15, 2024 End: September 15, 2024 Team Status: Active Member Role Status Dates Jennifer HOLLAND, DITCHING MACHINE ENGINEER-C Primary Care Provider Activ e Start: September 15, 2024 Dr. Sancho Rodriguez MD Attending Provider Active Start: September 15, 2024 Dr. Sancho Rodriguez MD Referring Provider Active Start: September 15, 2024 Dr. Sancho Rodriguez MD Other Provider Active Start: September 15, 2024 Team Status: Inactive Member Role Status Dates Jennifer HOLLAND, DITCHING MACHINE ENGINEER-C Primary Care Provider Activ e Start: September 17, 2024 End: September 17, 2024 Dr. Luther San MD Attending Provider Active S tart: September 17, 2024 End: September 17, 2024 Dr. Luther San MD Emergency Provider Active S tart: September 17, 2024 End: September 17, 2024 Team Status: Inactive Member Role Status Dates Jennifer WRENC, DITCHING MACHINE ENGINEER-C Primary Care Provider Activ e Start: September 22, 2024 End: September 22, 2024 Jennifer HOLLAND, DITCHING MACHINE ENGINEER-C Referring Provider Active Start: September 22, 2024 End: September 22, 2024 COLUMBA Valentin-Sang Attending Provider Active Start: September 22, 2024 End: September 22, 2024 Team Status: Inactive Member Role Status Dates Jennifer Kevan [facility], DITCHING MACHINE ENGINEER-C Primary Care Provider Activ e Start: December 27, 2024 End: December 28, 2024 Dr. Rupert Hernández MD Referring Provider Active Start: December 27, 2024 End: December 28, 2024 Dr. Rupert Hernández MD Emergency Provider Active Start: December 27, 2024 End: December 28, 2024 Price Changer Relationship Specialty Start Date End Date Dacia Camejo [address] [place] [address] PCP - General Family Medicine 03/14/24 Price Changer Relationship Specialty Start Date End Date Dacia Camejo [address] [place] [address] PCP - General Family Medicine 03/14/24 Price Changer Relationship Specialty Start Date End Date Dacia Camejo [address] [place] [address] PCP - General Family Medicine 03/14/24 Price Changer Relationship Specialty Start Date End Date Dacia Camejo [address] [place] [address] PCP - General Family Medicine 03/14/24 Price Changer Relationship Specialty Start Date End Date Dacia Camejo [address] [place] [address] PCP - General Family Medicine 03/14/24 Price Changer Relationship Specialty Start Date End Date Dacia Camejo [address] [place] [address] PCP - General Family Medicine 03/14/24 Price Changer Relationship Specialty Start Date End Date Dacia Camejo [address] [place] [address] PCP - General Family Medicine 03/14/24 Price Changer Relationship Specialty Start Date End Date Dacia Camejo [address] [place] [address] PCP - General Family Medicine 03/14/24 Price Changer Relationship Specialty Start Date End Date Dacia Camejo [address] [place] [address] PCP - General Family Medicine 03/14/24 Price Changer Relationship Specialty Start Date End Date Dacia Camejo [address] [place] [address] PCP - General Family Medicine 03/14/24 Price Changer Relationship Specialty Start Date End Date Dacia Camejo [address] [place] [address] PCP - General Family Medicine 03/14/24 Price Changer Relationship Specialty Start Date End Date Generic Provider, [place] [address] PCP - General Bowling Ball Grader And Marker 03/20/25 Price Changer Relationship Specialty Start Date End Date Dacia Camejo [address] [place] [address] PCP - General Family Medicine 03/14/24 Price Changer Relationship Specialty Start Date End Date Generic Provider, No [place] [address] PCP - General Bowling Ball Grader And Marker 03/20/25 Source Comments (unrecognize d section and content) In the event this informatio n is protected by the Federal Confidentiality of Alcohol and Drug Abuse Patient Records regulations: The Federal rules restrict any use of the information to criminally investigate or prosecute any alcohol or drug abuse patient.[facility] the event this information is protected by the Federal Confidentiality of Alcohol and Drug Abuse Patient Records regulations: The Federal rules restrict any use of the information to criminally investigate or prosecute any alcohol or drug abuse patient.[facility] CampusIn the event this information is protected by the Federal Confidentiality of Alcohol and Drug Abuse Patient Records regulations: The Federal rules restrict any use of the information to criminally investigate or prosecute any alcohol or drug abuse patient.[facility] CampusIn the event this information is protected by the Federal Confidentiality of Alcohol and Drug Abuse Patient Records regulations: The Federal rules restrict any use of the information to criminally investigate or prosecute any alcohol or drug abuse patient.[facility] CampusIn the event this information is protected by the Federal Confidentiality of Alcohol and Drug Abuse Patient Records regulations: The Federal rules restrict any use of the information to criminally investigate or prosecute any alcohol or drug abuse patient.[facility] CampusIn the event this information is protected by the Federal Confidentiality of Alcohol and Drug Abuse Patient Records regulations: The Federal rules restrict any use of the information to criminally investigate or prosecute any alcohol or drug abuse patient.[facility] CampusIn the event this information is protected by the Federal Confidentiality of Alcohol and Drug Abuse Patient Records regulations: The Federal rules restrict any use of the information to criminally investigate or prosecute any alcohol or drug abuse patient.[facility] CampusIn the event this information is protected by the Federal Confidentiality of Alcohol and Drug Abuse Patient Records regulations: The Federal rules restrict any use of the information to criminally investigate or prosecute any alcohol or drug abuse patient.[facility] CampusIn the event this information is protected by the Federal Confidentiality of Alcohol and Drug Abuse Patient Records regulations: The Federal rules restrict any use of the information to criminally investigate or prosecute any alcohol or drug abuse patient.[facility] CampusIn the event this information is protected by the Federal Confidentiality of Alcohol and Drug Abuse Patient Records regulations: The Federal rules restrict any use of the information to criminally investigate or prosecute any alcohol or drug abuse patient.[facility] CampusIn the event this information is protected by the Federal Confidentiality of Alcohol and Drug Abuse Patient Records regulations: The Federal rules restrict any use of the information to criminally investigate or prosecute any alcohol or drug abuse patient.[facility] CampusIn the event this information is protected by the Federal Confidentiality of Alcohol and Drug Abuse Patient Records regulations: The Federal rules restrict any use of the information to criminally investigate or prosecute any alcohol or drug abuse patient.[facility] CampusIn the event this information is protected by the Federal Confidentiality of Alcohol and Drug Abuse Patient Records regulations: The Federal rules restrict any use of the information to criminally investigate or prosecute any alcohol or drug abuse patient.[facility] CampusIn the event this information is protected by the Federal Confidentiality of Alcohol and Drug Abuse Patient Records regulations: The Federal rules restrict any use of the information to criminally investigate or prosecute any alcohol or drug abuse patient.[facility] CampusIn the event this information is protected by the Federal Confidentiality of Alcohol and Drug Abuse Patient Records regulations: The Federal rules restrict any use of the information to criminally investigate or prosecute any alcohol or drug abuse patient.[facility] CampusIn the event this information is protected by the Federal Confidentiality of Alcohol and Drug Abuse Patient Records regulations: The Federal rules restrict any use of the information to criminally investigate or prosecute any alcohol or drug abuse patient.[facility] CampusIn the event this information is protected by the Federal Confidentiality of Alcohol and Drug Abuse Patient Records regulations: The Federal rules restrict any use of the information to criminally investigate or prosecute any alcohol or drug abuse patient.[facility] CampusIn the event this information is protected by the Federal Confidentiality of Alcohol and Drug Abuse Patient Records regulations: The Federal rules restrict any use of the information to criminally investigate or prosecute any alcohol or drug abuse patient.[facility] CampusIn the event this information is protected by the Federal Confidentiality of Alcohol and Drug Abuse Patient Records regulations: The Federal rules restrict any use of the information to criminally investigate or prosecute any alcohol or drug abuse patient.[facility] CampusIn the event this information is protected by the Federal Confidentiality of Alcohol and Drug Abuse Patient Records regulations: The Federal rules restrict any use of the information to criminally investigate or prosecute any alcohol or drug abuse patient.[facility] CampusIn the event this information is protected by the Federal Confidentiality of Alcohol and Drug Abuse Patient Records regulations: The Federal rules restrict any use of the information to criminally investigate or prosecute any alcohol or drug abuse patient.[facility] CampusIn the event this information is protected by the Federal Confidentiality of Alcohol and Drug Abuse Patient Records regulations: The Federal rules restrict any use of the information to criminally investigate or prosecute any alcohol or drug abuse patient.[facility] CampusIn the event this information is protected by the Federal Confidentiality of Alcohol and Drug Abuse Patient Records regulations: The Federal rules restrict any use of the information to criminally investigate or prosecute any alcohol or drug abuse patient.[facility] CampusIn the event this information is protected by the Federal Confidentiality of Alcohol and Drug Abuse Patient Records regulations: The Federal rules restrict any use of the information to criminally investigate or prosecute any alcohol or drug abuse patient.[facility] PRN Active and Recently Administ ered Medications (unrecognized section and content) Medication Order 01/21/2025 01/22/2025 01/23/2025 lidocaine 2 % topical gel (XYLOCAINE) (CANCELED) X (OR/PROCEDURE) PRN, Starting on Sun01/23/25 at 1015, Until Sun01/23/25 at 1208, Intraprocedure 1015 (Given - Provid er: Madan Chavez RN) NaCl 0.9% irrigation solution (CANCELED) X (OR/PROCEDURE) PRN, Starting on Sun01/23/25 at 1026, Until Sun01/23/25 at 1208, Intraprocedure 1026 (Given - Provid er: Madan Chavez RN) Scheduled Medication Order 03/18/2025 03/19/2025 03/20/2025 alum-mag hydroxide-simeth (Mylanta) 200-200-20 mg/5 mL oral suspension 30 mL (COMPLETED) 30 mL, oral, Once, On Sun03/20/25 at 0945, For 1 dose 0953 (Given - Provid er: Kenna Richards RN) dicyclomine (Bentyl) injection 20 mg (COMPLETED) 20 mg, intramuscular, Once, On Sun03/20/25 at 1055, For 1 dose 1109 (Given - Provid er: Kenna Richards RN) lidocaine (Xylocaine) 2 % mouth solution 15 mL (COMPLETED) 15 mL, oral, Once, On Sun03/20/25 at 0945, For 1 dose 0953 (Given - Provid er: Kenna Richards RN) ondansetron (Zofran) injection 4 mg (COMPLETED) 4 mg, intravenous, Once, On Sun03/20/25 at 0855, For 1 dose, When administering via IV Push, administer over 3-5 minutes. 902 (Given - Provid er: Kenna Richards RN) pantoprazole (Protonix) injection 40 mg 40 mg, intravenous, Daily, First dose on Sun03/20/25 at 0900, Reconstitute each 40 mg vial with 10 mL NS to make 4 mg/mL solution. 902 (Given - Provid er: Kenna Richards RN) sodium chloride 0.9 % bolus 1,000 mL (COMPLETED) 1,000 mL, intravenous, at 999 mL/hr, Administer over 1 Hours, Once, On Sun03/20/25 at 0855, For 1 dose 900 (New Bag - Prov ider: Kenna Richards RN)1053 (Stopped - Provider: Kenna Richards RN) sucralfate (Carafate) suspension 1 g (COMPLETED) 1 g, oral, Once, On Sun03/20/25 at 1055, For 1 dose, SHAKE WELL 1109 (Given - Provid er: Kenna Richards RN) Scheduled Medication Order 04/12/2025 04/13/2025 04/14/2025 famotidine PF (Pepcid) injection 40 mg (COMPLETED) 40 mg, intravenous, Administer over 2 Minutes, Once, On Sun04/14/25 at 195, For 1 dose 2006 (Given - Provid er: Pedro Charles RN) iohexol (OMNIPaque) 350 mg iodine/mL solution 68 mL (COMPLETED) 68 mL, intravenous, Once in imaging, Starting on Sun04/14/25 at 210, For 1 dose 2120 (Given - Provid er: Kolby Bryant) morphine injection 4 mg (COMPLETED) 4 mg, intravenous, Once, On Sun04/14/25 at 1954, For 1 dose 2006 (Given - Provid er: Pedro Charles RN) ondansetron (Zofran) injection 4 mg (COMPLETED) 4 mg, intravenous, Once, On Sun04/14/25 at 1954, For 1 dose, When administering via IV Push, administer over 3-5 minutes. 2006 (Given - Provid er: Pedro Charles RN) pantoprazole (Protonix) injection 80 mg (COMPLETED) 80 mg, intravenous, Once, On Sun04/14/25 at 1954, For 1 dose, Reconstitute each 40 mg vial with 10 mL NS to make 4 mg/mL solution. 2007 (Given - Provid er: Pedro Charles RN) sodium chloride 0.9 % bolus 1,000 mL (COMPLETED) 1,000 mL, intravenous, at 999 mL/hr, Administer over 1 Hours, Once, On Sun04/14/25 at 1954, For 1 dose 2007 (New Bag - Prov ider: Pedro Charles RN)2099 (Stopped - Provider: Stefanie Wesley RN) FOR RECORDS PERTAINING TO PATIENTS WHO ARE [...] BE BASED ON THE PRIMARY CLINICAL RECORDS. [employer] [facility]. provides no warranty or guarantee of the accuracy or completeness of information in this document.
[2025-04-21] MEDS: Famotidine 200 MG/20 ML MDV 20 MG in 0.9% Normal Saline (Pres. free 8 ML 300 MG IV (00:53)
[2025-04-21] MEDS: DiphenhydrAMINE 50 MG/ML Syringe IV (00:54)
[2025-04-21] MEDS: Ketorolac 30 MG/ML Syringe IV (00:54)
[2025-04-21] MEDS: 0.9% Normal Saline (1000mL) 1,000 ML 999 ML IV (00:55)
[2025-04-21 01:22] VITALS: BP 117/91; PULSE 76; RESP 16; TEMP 36.9; O2SAT 99
--- NOTE | 2025-04-21 01:23 | EX.ED.DYSGE1 ---
HPI History of Present Illness Chief Complaint: Rash Informant: patient and spouse/S.O. Narrative Narrative: Patient is a 34-year-old male with past medical history of bipolar disorder. He states the other day he was walking down along the [place]. He states that after this he noticed a pruritic rash around his bilateral feet that is now trending up his leg. He states there is no other exposure then the recent walking along the [place]. He states he is also noted a headache today. He states there is been no fevers or chills or sick symptoms such as congestion drainage or cough. He denies any recent head trauma either. However with concern that the 2 could be related he presents for evaluation [facility] Medical History Gastric reflux Substance abuse Bipolar disorder Smoker Asthma Leg cramps Acid reflux Heart disease COPD (chronic obstructive pulmonary disease) Home Medications ?Medication ?Instructions ?Recorded ?Last Taken ?Type buspirone 10 mg tablet 10 mg PO BID 04/21/25 Unknown History prednisone 10 mg tablet 10 mg PO DAILY #63 tabs 04/21/25 Unknown Rx quetiapine 50 mg tablet,extended 50 mg PO QHS 04/21/25 Unknown History release 24 hr trazodone 50 mg tablet 50 mg PO QHS PRN 04/21/25 Unknown History Allergy/AdvReac Type Severity Reaction Status Date / Time Penicillins Allergy Hives Verified 04/21/25 00:01 ibuprofen AdvReac Nausea Verified 04/21/25 00:01 Surgical History History of esophagogastroduodenoscopy (EGD) Hx of hand surgery Social History Smoking Status: Former smoker alcohol intake: current substance use type: heroin and methamphetamine ROS ROS ED Constitutional Constitutional ED: Denies chills or fever(s) Eyes Eyes: Denies blurry vision or change in vision ENT ENT ED: Denies rhinorrhea or sore throat Cardiovascular Cardiovascular: Denies chest pain Respiratory/Chest Respiratory/Chest: Denies cough or dyspnea Gastrointestinal Gastrointestinal: Denies abdominal pain, diarrhea, nausea or vomiting Musculoskeletal Musculoskeletal: Denies neck pain Integumentary Reports rash Neurologic Neurologic: Reports headache(s) Hematologic/Lymphatic Hematologic/Lymphatic: Denies easy bleeding or easy bruising EXAM Physical Exam Const Vital Signs: 04/21/25 00:02 04/21/25 01:22 Temperature 98.1 F 98.4 F Temperature Source Oral Pulse Rate 85 76 Respiratory Rate 18 16 Blood Pressure 118/81 H 117/91 H Blood Pressure Mean 93 99 Pulse Ox 98 99 Oxygen Delivery Method Room Air Positive well nourished and well developed General Appearance ED: well developed HEENT Reports moist mucous membranes HEENT Narrative: Normocephalic atraumatic No tongue or lip swelling no oral lesions no airway edema or compromise No secondary findings in the posterior pharynx to suggest infection Eyes PERRL and EOMs intact bilaterally General Eye ED: Negative for scleral icterus Neck supple Neck Narrative: No nuchal rigidity or meningeal signs Resp normal respiratory effort and clear to auscultation bilaterally Cardio regular rate and regular rhythm Extremity Extremity Narrative: Bilateral lower extremities are neurovascularly intact Patient has blanchable erythema with scattered vesicles along the dorsal aspect of the foot that extend up to just below the knee most consistent with acute allergic reaction No lymphangitic streaking. No petechiae or purpura noted. No involvement of the palms or soles. Neuro oriented x3, CN's II-XII intact bilaterally and no sensory deficits noted Neuro Narrative: GCS of 15 Cranial nerves II through XII are grossly intact without focal neurologic deficit No pronator drift no dysmetria no truncal ataxia NIH stroke scale score of 0 Sensorium / Orientation: alert Motor Exam: strength 5/5 throughout Psych mental status grossly normal Skin Skin Narrative: Rash of the bilateral lower legs as documented above without secondary findings of infection MDM MDM MDM Narrative Medical decision making narrative: Patient arrived to the ER with stable vital. He reported a pruritic rash to his bilateral legs after walking along the [place]. History and exam is consistent with acute allergic reaction. He does not have findings of secondary infection at this time as there is no obvious cellulitis abscess or lymphangitic streaking. I do feel the headache is a coincidental issue as he does not have meningeal signs there is been no recent trauma and he has no sick symptoms to suggest sinus congestion or strep throat. He also has no history of bleeding disorder or blood thinner use and there is been no report of trauma. Therefore my concern for subarachnoid or subdural hemorrhage is low. Patient was given IV fluids Toradol Benadryl and Reglan to help with the headache as well as Solu-Medrol and Pepcid for his allergic reaction. On reevaluation vitals remained stable neurologic exam is normal and he has had improvement of his symptoms. Therefore do not feel the need for further intervention he is otherwise safe for discharge. History & Record Review Discussion w/independent historian: Patient and Significant other Discharge Plan Triage Chief Complaint: Rash ED Provider: César Huerta Dx/Rx/DC Orders Clinical Impression: Allergic reaction, Cephalgia, Bipolar disorder Instructions: Understanding Headache Pain, ED General Allergic Reactions Prescriptions: New prednisone 10 mg tablet 10 mg PO DAILY Qty: 63 0RF Rx Instructions: 60 mg p.o. daily for 3 days, 50 mg p.o. daily for 3 days, 40 mg p.o. daily for 3 days, 30 mg p.o. daily for 3 days, 20 mg p.o. daily for 3 days, 10 mg p.o. daily for 3 days. No Action trazodone 50 mg tablet 50 mg PO QHS PRN buspirone 10 mg tablet 10 mg PO BID quetiapine 50 mg tablet extended release 24 hr 50 mg PO QHS Primary Care Provider: Jennifer Mathur Referrals: Jennifer Mathur, [employer] [Primary Care Provider] - Activity Restrictions/Additional Instructions: Your symptoms are consistent with an allergic reaction. Take the prednisone as directed to help resolve this. It would typically take 2 to 3 days for you to notice improvement. Continue with Tylenol for headache control. You can also add Benadryl to the prednisone if needed for increased itch relief. If you develop a fever or have any further concerns please return to the ER for repeat evaluation Print Language: Upper Sorbian Disposition Disposition: Home, Self Care Discharge Date/Time: 04/21/25 01:31
== END 2025-04-21 01:31 | disposition home or self-care (01) ==
PROVIDERS: Emergency Provider Emergency Medicine; PCP Nurse Practitioner Family; Visit Provider Emergency Medicine
DX: T78.40XA Allergy, unspecified, initial encounter (principal); F31.9 Bipolar disorder, unspecified; J44.9 Chronic obstructive pulmonary disease, unspecified; R51.9 Headache, unspecified; Z87.891 Personal history of nicotine dependence; Z79.899 Other long term (current) drug therapy
CPT/HCPCS: 96361; 96374; 96375; 99284

== ENCOUNTER 2025-08-02 18:08 | Emergency (ER) | payer MEDICAID, SELFPAY ==
[2025-08-02 18:13] VITALS: BP 124/88; PULSE 80; RESP 18; TEMP 36.8; O2SAT 98
--- NOTE | 2025-08-02 18:19 | EKG12_ITS ---
Test Reason : CP Blood Pressure : */* mmHG Vent. Rate : 71 BPM Atrial Rate : 71 BPM P-R Int : 164 ms QRS Dur : 96 ms QT Int : 390 ms P-R-T Axes : 64 44 61 degrees QTcB Int : 423 ms Normal sinus rhythm Normal ECG Confirmed by HERIBERTO EASTMAN, SUNDEEP ([id number]), telegraph editor ZITA GARCIA ([id number]) on 08/03/2025 1:05:10 PM Referred By: Confirmed By: SUNDEEP LOUIS MD
[2025-08-02 18:28] LABS: Hematocrit 50.0 % (40-54); Hemoglobin 17.3 g/dL (13.0-16.5); Immature Granulocytes Count 0.040 X10^3/uL (0.0-0.0); Mean Corp Hgb Conc 34.6 g/dL (32-36); Mean Corpuscular Volume 82.1 fL (80-94); Mean Platelet Vol. 10.5 fl (6.2-12.0); NRBC Flagged by Analyzer 0 % (0-5); Platelet Count 250 K/mm3 (150-450); RBC Distribution Width CV 12.7 % (11.6-14.6); RBC Distribution Width SD 38.0 fl (35.1-43.9); Red Blood Count 6.09 M/mm3 (4.6-6.2); White Blood Count 10.5 K/mm3 (4.4-11.0)
--- NOTE | 2025-08-02 18:50 | RAD_ITS ---
PROCEDURE: CHEST 1 VIEW (PORTABLE) 08/02/2025 REASON FOR EXAM: CHEST PAIN TECHNIQUE: Frontal view of the chest. COMPARISON: None FINDINGS: No focal consolidation. No pleural effusion or pneumothorax. Cardiac silhouette is within normal limits. No acute fractures. RAD/Chest 1 View (Portable) IMPRESSION: No focal consolidations. Reading Location: [id number]
[2025-08-02 18:58] LABS: Troponin T High Sensitivity < 6 ng/L (<=22)
[2025-08-02 18:59] LABS: Anion Gap 15 (5-15); BUN 14 mg/dL (4-19); BUN/Creat Ratio 12.0 RATIO (10-20); Calcium,Total 9.8 mg/dL (7.6-11.0); Carbon Dioxide 22.5 mmol/L (21.0-32.0); Chloride 103 mmol/L (98-108); Glucose 104 mg/dL (70-99); Potassium 3.7 mmol/L (3.3-5.1)
--- OUTSIDE RECORDS SUMMARY | 2025-08-02 19:13 | XMS RPT_ITS | CCD ---
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 developed General Appearance ED: well developed HEENT Reports moist mucous membranes HEENT Narrative: Normocephalic atraumatic No tongue or lip swelling no oral lesions no airway edema or compromise No secondary findings in the posterior pharynx to suggest infection Eyes PERRL and EOMs intact bilaterally General Eye ED: Negative for scleral icterus Neck supple Neck Narrative: No nuchal rigidity or meningeal signs Resp normal respiratory effort and clear to auscultation bilaterally Cardio regular rate and regular rhythm Extremity Extremity Narrative: Bilateral lower extremities are neurovascularly intact Patient has blanchable erythema with scattered vesicles along the dorsal aspect of the foot that extend up to just below the knee most consistent with acute allergic reaction No lymphangitic streaking. No petechiae or purpura noted. No involvement of the palms or soles. Neuro oriented x3, CN's II-XII intact bilaterally and no sensory deficits noted Neuro Narrative: GCS of 15 Cranial nerves II through XII are grossly intact without focal neurologic deficit No pronator drift no dysmetria no truncal ataxia NIH stroke scale score of 0 Sensorium / Orientation: alert Motor Exam: strength 5/5 throughout Psych mental status grossly normal Skin Skin Narrative: Rash of the bilateral lower legs as documented above without secondary findings of infection MDM MDM MDM Narrative Medical decision making narrative: Patient arrived to the ER with stable vital. He reported a pruritic rash to his bilateral legs after walking along the [place]. History and exam is consistent with acute allergic reaction. He does not have findings of secondary infection at this (more content not included)... Normal [facility] NICOTINE AND METAB, URon URIN ANABASINE QUANT <5 Normal [facility] Comment on above: Order Comment: Speci men Type: URINE SPECIMEN Ordering Facility: [facility] Address: [address] [place] [address] Performed By: #### U NICOT #### [facility] CLIA [id number] [address] [place] [address] URIN COTININE QUANT 611 ng/mL Normal [facility] Comment on above: Order Comment: Speci men Type: URINE SPECIMEN Ordering Facility: [facility] Address: [address] [place] [address] Performed By: #### U NICOT #### [facility] CLIA [id number] [address] [place] [address] URIN NICOTINE QUANT 324 ng/mL Normal [facility] Comment on above: Order Comment: Speci men Type: URINE SPECIMEN Ordering Facility: [facility] Address: [address] [place] [address] Result Comment: INTE RPRETIVE INFORMATION: Nicotine and Metabolites, Urine, Quantitative Methodology: Quantitative Liquid Chromatography-Tandem Mass Spectrometry Positive cutoff: Nicotine 15 ng/mL Cotinine 15 ng/mL 3-ZN-Klsqhyho 50 ng/mL Anabasine 5 ng/mL For medical purposes only; not valid for forensic use. This test is designed to evaluate recent use of nicotine-containing products. Passive and active exposure cannot be discriminated definitively, although a cutoff of 100 ng/mL cotinine is frequently used for surgery qualification purposes. For smoking cessation programs or compliance testing, the absence of expected drug(s) and/or drug metabolite(s) may indicate non-compliance, inappropriate timing of specimen collection relative to drug administration, poor drug absorption, diluted/adulterated urine, or limitations of testing. The concentration value must be greater than or equal to the cutoff to be reported as positive. Anabasine is included as a biomarker of tobacco use, versus nicotine replacement. Interpretive questions should be directed to the laboratory. This test was developed and its performance characteristics determined by [facility]. It has not been cleared or approved by the [place] Food and Drug Administration. This test was performed in a CLIA certified laboratory and is intended for clinical purposes. Performed By: [facility] [address] [place] [address] Human Resources Leader: Alfred Calvo MD, PhD CLIA Number: [id number] Performed By: #### U NICOT #### [facility] CLIA [id number] [address] [place] [address] URINE 3 [place] COTININE 1606 ng/mL Normal [facility] Comment on above: Order Comment: Speci men Type: URINE SPECIMEN Ordering Facility: [facility] Address: [address] [place] [address] Performed By: #### U NICOT #### [facility] CLIA [id number] [address] [place] [address] CBC W Auto Differential pane l (Bld)on 04-14-2025 Basophils (Bld) [#/Vol] 0.07 10*3/uL [facility] Basophils/100 WBC (Bld) 1.0 % 0.0 - 2.0 % [facility] Eosinophils (Bld) [#/Vol] 0.16 10*3/uL [facility] Eosinophils/100 WBC (Bld) 2.3 % 0.0 - 6.0 % [facility] Erythrocyte distribution width (RBC) [Ratio] 12.4 % 11.5 - 14.5 % [facility] Hematocrit (Bld) [Volume fraction] 46.3 % 41.0 - 52.0 % [facility] Hemoglobin (Bld) [Mass/Vol] 16.1 g/dL 13.5 - 17.5 g/dL [facility] Immature granulocytes (Bld) [#/Vol] 0.03 10*3/uL [facility] Immature granulocytes/100 WBC (Bld) 0.4 % 0.0 - 0.9 % [facility] Comment on above: Immature Granulocyte Count (IG) includes promyelocytes, myelocytes and metamyelocytes but does not include bands. Percent differential counts (%) should be interpreted in the context of the absolute cell counts (cells/UL). Lymphocytes (Bld) [#/Vol] 2.37 10*3/uL [facility] Lymphocytes/100 WBC (Bld) 34.5 % 13.0 - 44.0 % [facility] MCH (RBC) [Entitic mass] 28.3 pg 26. 0 - 34.0 pg [facility] MCHC (RBC) [Mass/Vol] 34.8 g/dL 32.0 - 36.0 g/dL [facility] MCV (RBC) [Entitic vol] 81 fL 80 - 100 fL [facility] Monocytes (Bld) [#/Vol] 0.68 10*3/uL [facility] Monocytes/100 WBC (Bld) 9.9 % 2.0 - 10.0 % [facility] Neutrophils (Bld) [#/Vol] 3.56 10*3/uL [facility] Comment on above: Percent differential counts (%) should be interpreted in the context of the absolute cell counts (cells/uL). Neutrophils/100 WBC (Bld) 51.9 % 40.0 - 80.0 % [facility] Nucleated RBC/100 WBC (Bld) [Ratio] 0.0 % [facility] Platelets (Bld) [#/Vol] 248 10*3/uL [facility] RBC (Bld) [#/Vol] 5.69 10*6/uL [facility] WBC (Bld) [#/Vol] 6.9 10*3/uL [facility] Basophils (Bld) [#/Vol] 0.07 x10*3/uL Normal 0.00-0.10 [facility] Comment on above: Performed By: #### 5 7021-8 #### IRENE HULL ([id number]) [facility] ([facility]) [address] [place] [address]204 Basophils/100 WBC (Bld) 1.0 % Normal 0.0-2.0 U [facility] Comment on above: Performed By: #### 5 7021-8 #### IRENE HULL ([id number]) [facility] ([facility]) [address] [place] [address] 01171 Eosinophils (Bld) [#/Vol] 0.16 x10*3/uL Normal 0.00-0.70 [facility] Comment on above: Performed By: #### 5 7021-8 #### IRENE HULL ([id number]) [facility] ([facility]) [address] [place] [address] 88420 Eosinophils/100 WBC (Bld) 2.3 % Normal 0.0-6.0 [facility] Comment on above: Performed By: #### 5 7021-8 #### IRENE HULL ([id number]) [facility] ([facility]) [address] [place] [address] 42405 Erythrocyte distribution width (RBC) [Ratio] 12.4 % Normal 11.5-14.5 [facility] Comment on above: Performed By: #### 5 7021-8 #### IRENE HULL ([id number]) [facility] ([facility]) [address] [place] [address] 25869 Hematocrit (Bld) [Volume fraction] 46.3 % Normal 41.0-52.0 [facility] Comment on above: Performed By: #### 5 7021-8 #### IRENE HULL ([id number]) [facility] ([facility]) [address] [place] [address] 79160 Hemoglobin (Bld) [Mass/Vol] 16.1 g/dL Normal 13.5-17.5 [facility] Comment on above: Performed By: #### 5 7021-8 #### IRENE HULL ([id number]) [facility] ([facility]) [address] [place] [address] 78704 Immature granulocytes (Bld) [#/Vol] 0.03 x10*3/uL Normal 0.00-0.70 [facility] Comment on above: Performed By: #### 5 7021-8 #### IRENE HULL ([id number]) [facility] ([facility]) [address] [place] [address] 80978 Immature granulocytes/100 WBC (Bld) 0.4 % Normal 0.0-0.9 [facility] Comment on above: Result Comment: Kaylin ture Granulocyte Count (IG) includes promyelocytes, myelocytes and metamyelocytes but does not include bands. Percent differential counts (%) should be interpreted in the context of the absolute cell counts (cells/UL). Performed By: #### 5 7021-8 #### IRENE HULL ([id number]) [facility] ([facility]) [address] [place] [address] 06997 Lymphocytes (Bld) [#/Vol] 2.37 x10*3/uL Normal 1.20-4.80 [facility] Comment on above: Performed By: #### 5 7021-8 #### IRENE HULL ([id number]) [facility] ([facility]) [address] [place] [address] 05483 Lymphocytes/100 WBC (Bld) 34.5 % Normal 13.0-44.0 [facility] Comment on above: Performed By: #### 5 7021-8 #### IRENE HULL ([id number]) [facility] ([facility]) [address] [place] [address] 50806 MCH (RBC) [Entitic mass] 28.3 pg Normal 26.0-34.0 [facility] Comment on above: Performed By: #### 5 7021-8 #### IRENE HULL ([id number]) [facility] ([facility]) [address] [place] [address] 17041 MCHC (RBC) [Mass/Vol] 34.8 g/dL Normal 32.0-36.0 [facility] Comment on above: Performed By: #### 5 7021-8 #### IRENE HULL ([id number]) [facility] ([facility]) [address] [place] [address] 60950 MCV (RBC) [Entitic vol] 81 fL Normal 80-100 U [facility] Comment on above: Performed By: #### 5 7021-8 #### IRENE HULL ([id number]) [facility] ([facility]) [address] [place] [address] 26091 Monocytes (Bld) [#/Vol] 0.68 x10*3/uL Normal 0.10-1.00 [facility] Comment on above: Performed By: #### 5 7021-8 #### IRENE HULL ([id number]) [facility] ([facility]) [address] [place] [address] 98972 Monocytes/100 WBC (Bld) 9.9 % Normal 2.0-10.0 [facility] Comment on above: Performed By: #### 5 7021-8 #### IRENE HULL ([id number]) [facility] ([facility]) [address] [place] [address] 80941 Neutrophils (Bld) [#/Vol] 3.56 x10*3/uL Normal 1.20-7.70 [facility] Comment on above: Result Comment: Perc ent differential counts (%) should be interpreted in the context of the absolute cell counts (cells/uL). Performed By: #### 5 7021-8 #### IRENE HULL ([id number]) [facility] ([facility]) [address] [place] [address] 44343 Neutrophils/100 WBC (Bld) 51.9 % Normal 40.0-80.0 [facility] Comment on above: Performed By: #### 5 7021-8 #### IRENE HULL ([id number]) [facility] ([facility]) [address] [place] [address] 16690 Nucleated RBC/100 WBC (Bld) [Ratio] 0.0 /100 WBCs Normal 0.0-0.0 [facility] Comment on above: Performed By: #### 5 7021-8 #### IRENE HULL ([id number]) [facility] ([facility]) [address] [place] [address] 48760 Platelets (Bld) [#/Vol] 248 x10*3/uL Normal 150-450 [facility] Comment on above: Performed By: #### 5 7021-8 #### IRENE HULL ([id number]) [facility] ([facility]) [address] [place] [address] 97654 RBC (Bld) [#/Vol] 5.69 x10*6/uL Normal 4.50-5.90 [facility] Comment on above: Performed By: #### 5 7021-8 #### IRENE HULL ([id number]) [facility] ([facility]) [address] [place] [address] 84952 WBC (Bld) [#/Vol] 6.9 x10*3/uL Normal 4.4-11.3 [facility] Comment on above: Performed By: #### 5 7021-8 #### IRENE HULL ([id number]) [facility] ([facility]) [address] [place] [address] [address] [address] CHEST ABDOMEN PELVIS W IV CONTRASTon 04-14-2025 CT CHEST ABDOMEN PELVIS W IV CONTRAST Interpreted By: Julito Ahuja, STUDY: CT CHEST ABDOMEN PELVIS W IV CONTRAST; 04/14/2025 9:21 pm INDICATION: Signs/Symptoms:Epigastric pain. COMPARISON: None. ACCESSION NUMBER(S): [id number] ORDERING CLINICIAN: KADY SAHU TECHNIQUE: Axial CT [...] Julito Ahuja 04/14/2025 9:52 PM Dictation workstation: [id number] [facility] CT Chest and Abdomen and Pel vis W contrast Marika 04-14-2025 Paraseptal emphysema tous changes in the lung apices with dependent atelectatic changes bilaterally. No acute abnormality of the abdomen and pelvis. MACRO: None. Signed by: Julito Ahuja 04/14/2025 9:52 PM Dictation workstation: [id number] [facility] Interpreted By: Julito Ahuja, STUDY: CT CHEST ABDOMEN PELVIS W IV CONTRAST; 04/14/2025 9:21 pm INDICATION: Signs/Symptoms:Epigastric pain. COMPARISON: None. ACCESSION NUMBER(S): [id number] ORDERING CLINICIAN: KADY SAHU TECHNIQUE: Axial CT [...] INDICATION: Signs/Symptoms:Epigastric pain. COMPARISON: None. ACCESSION NUMBER(S): [id number] ORDERING CLINICIAN: KADY SAHU TECHNIQUE: Axial CT [...] Julito Ahuja 04/14/2025 9:52 PM Dictation workstation: [id number] [facility] Work Phone: Radiology Study observation (narrative) [facility] Work Phone: CT Chest and Abdomen and Pel vis W contrast IVOrdered By: Julito Ahuja on 04-14-2025 [facility] Work Phone: Comprehensive metabolic 2000 panelon 04-14-2025 Albumin BCP dye [Mass/Vol] 4.8 g/dL 3.4 - 5.0 g/dL [facility] ALP [Catalytic activity/Vol] 75 U/L 33 - 120 U/L [facility] ALT With P-5'-P [Catalytic activity/Vol] 38 U/L 10 - 52 U/L [facility] Comment on above: Patients treated wit h Sulfasalazine may generate falsely decreased results for ALT. Anion gap [Moles/Vol] 10 mmol/L 10 - 2 0 mmol/L [facility] AST With P-5'-P [Catalytic activity/Vol] 20 U/L 9 - 39 U/L [facility] Bilirubin [Mass/Vol] 0.5 mg/dL 0.0 - 1 .2 mg/dL [facility] Calcium [Mass/Vol] 9.8 mg/dL 8.6 - 10. 3 mg/dL [facility] Chloride [Moles/Vol] 103 mmol/L 98 - 10 7 mmol/L [facility] CO2 [Moles/Vol] 29 mmol/L 21 - 32 mmol/L [facility] Creatinine [Mass/Vol] 1.01 mg/dL 0.50 - 1.30 mg/dL [facility] eGFR - PINF [facility] Comment on above: Calculations of may mated GFR are performed using the 2020 CKD-EPI Study Refit equation without the race variable for the IDMS-Traceable creatinine methods. https://jasn.asnjournals.org/content/early//ASN.375 3923168 Glucose [Mass/Vol] 107 mg/dL High 74 - 99 mg/dL [facility] Interpretation and review of laboratory results Abnormal [facility] Potassium [Moles/Vol] 3.8 mmol/L 3.5 - 5.3 mmol/L [facility] Protein [Mass/Vol] 7.0 g/dL 6.4 - 8.2 g/dL [facility] Sodium [Moles/Vol] 138 mmol/L 136 - 145 mmol/L [facility] Urea nitrogen [Mass/Vol] 9 mg/dL 6 - 23 mg/dL [facility] Albumin BCP dye [Mass/Vol] 4.8 g/dL Normal 3.4-5.0 [facility] Comment on above: Performed By: #### 2 4323-8 #### IRENE HULL ([id number]) [facility] ([facility]) [address] [place] [address] 01280 ALP [Catalytic activity/Vol] 75 U/L Normal 33-120 [facility] Comment on above: Performed By: #### 2 4323-8 #### IRENE HULL ([id number]) [facility] ([facility]) [address] [place] [address] 22578 ALT With P-5'-P [Catalytic activity/Vol] 38 U/L Normal 10-52 [facility] Comment on above: Result Comment: Radha ents treated with Sulfasalazine may generate falsely decreased results for ALT. Performed By: #### 2 4323-8 #### IRENE HULL ([id number]) [facility] ([facility]) [address] [place] [address] Anion gap [Moles/Vol] 10 mmol/L Normal 10-20 [facility] Comment on above: Performed By: #### 2 4323-8 #### IRENE HULL ([id number]) [facility] ([facility]) [address] [place] [address] AST With P-5'-P [Catalytic activity/Vol] 20 U/L Normal 9-39 [facility] Comment on above: Performed By: #### 2 4323-8 #### IRENE HULL ([id number]) [facility] ([facility]) [address] [place] [address] Bilirubin [Mass/Vol] 0.5 mg/dL Normal 0.0-1.2 [facility] Comment on above: Performed By: #### 2 4323-8 #### IRENE HULL ([id number]) [facility] ([facility]) [address] [place] [address] Calcium [Mass/Vol] 9.8 mg/dL Normal 8.6-10.3 [facility] Comment on above: Performed By: #### 2 4323-8 #### IRENE HULL ([id number]) [facility] ([facility]) [address] [place] [address] Chloride [Moles/Vol] 103 mmol/L Normal 98-107 [facility] Comment on above: Performed By: #### 2 4323-8 #### IRENE HULL ([id number]) [facility] ([facility]) [address] [place] [address] CO2 [Moles/Vol] 29 mmol/L Normal 21-32 [facility] Comment on above: Performed By: #### 2 4323-8 #### IRENE HULL ([id number]) [facility] ([facility]) [address] [place] [address] 05716 Creatinine [Mass/Vol] 1.01 mg/dL Normal 0.50-1.30 [facility] Comment on above: Performed By: #### 2 4323-8 #### IRENE HULL (51371) [facility] ([facility]) [address] [place] [address] 59842 Glomerular filtration rate >90 Normal >60 [facility] Comment on above: Result Comment: Calc ulations of estimated GFR are performed using the 2020 CKD-EPI Study Refit equation without the race variable for the IDMS-Traceable creatinine methods. https://jasn.asnjournals.org/content/early//ASN.252 1818190 Performed By: #### 2 4323-8 #### IRENE HULL ([id number]) [facility] ([facility]) [address] [place] [address] 33790 Glucose [Mass/Vol] 107 mg/dL High 74-99 [facility] Comment on above: Performed By: #### 2 4323-8 #### IRENE HULL ([id number]) [facility] ([facility]) [address] [place] [address] 65782 Potassium [Moles/Vol] 3.8 mmol/L Normal 3.5-5.3 [facility] Comment on above: Performed By: #### 2 4323-8 #### IRENE HULL ([id number]) [facility] ([facility]) [address] [place] [address] 09309 Protein [Mass/Vol] 7.0 g/dL Normal 6.4-8.2 [facility] Comment on above: Performed By: #### 2 4323-8 #### IRENE HULL ([id number]) [facility] ([facility]) [address] [place] [address] 87625 Sodium [Moles/Vol] 138 mmol/L Normal 136-145 [facility] Comment on above: Performed By: #### 2 4323-8 #### IRENE HULL ([id number]) [facility] ([facility]) [facility] [place] [id number] Urea nitrogen [Mass/Vol] 9 mg/dL Normal 6-23 [facility] Comment on above: Performed By: #### 2 4323-8 #### IRENE HULL ([id number]) [facility] ([facility]) [address] [place] [address] ECG 12-LEADon 04-14-2025 ECG 12-LEAD Ventricular Rate 74 Atrial Rate 74 P-R Interval 162 QRS Duration 94 Q-T Interval 384 QTC Calculation(Bazett) 426 P [place] 69 R [place] 42 T [place] 63 QRS Count 12 Q Onset 222 [...] Nava (887) on 04/16/2025 10:59:45 AM Normal [facility] Lipaseon 04-14-2025 Lipase [Catalytic activity/Vol] 13 U/L 9 - 82 U/L [facility] Lipase [Catalytic activity/V ol]on 04-14-2025 Interpretation and review of laboratory results Normal [facility] Venipuncture immedia tely after or during the administration of Metamizole may lead to falsely low results. Testing should be performed immediately prior to Metamizole dosing. [facility] Triacylglycerol lipaseon Lipase [Catalytic activity/Vol] 13 U/L Normal -82 [facility] Comment on above: Order Comment: Venip uncture immediately after or during the administration of Metamizole may lead to falsely low results. Testing should be performed immediately prior to Metamizole dosing. Performed By: #### 3 040-3 #### IRENE HULL ([id number]) [facility] ([facility]) [address] [place] [address] Tropinin I.cardiac panel Hig h sensitivity methodon 04-14-2025 Interpretation and review of laboratory results Normal [facility] Less than 99th perce ntile of normal [...] performed using a different testing methodology at [facility] than at other [facility]. Direct result comparisons should only be made within the same method. [facility] Interpretation and review of laboratory results Normal [facility] Less than 99th perce ntile of normal [...] performed using a different testing methodology at [facility] than at other [facility]. Direct result comparisons should only be made within the same method. [facility] Troponin I, High Sensitivity , Initialon 04-14-2025 Tropinin I.cardiac panel High sensitivity method ng/L 0 - 20 ng/L [facility] Troponin I.cardiac panelon 0 04-14-2025 Tropinin I.cardiac panel High sensitivity method 3 ng/L Normal 0-20 [facility] Comment on above: Order Comment: Less than [...] performed using a different testing methodology at [facility] than at other [facility]. Direct result comparisons should only be made within the same method. Performed By: #### 8 9577-1 #### IRENE HULL ([id number]) [facility] ([facility]) [address] [place], [place] [id number] Tropinin I.cardiac panel High sensitivity method <3 Normal 0-20 [facility] Comment on above: Order Comment: Less than [...] performed using a different testing methodology at [facility] than at other [facility]. Direct result comparisons should only be made within the same method. Performed By: #### 8 9577-1 #### IRENE HULL (45524) [facility] ([facility]) [address] [place] [address] 56131 Troponin, High Sensitivity, 1 Houron 04-14-2025 Tropinin I.cardiac panel High sensitivity method 3 ng/L 0 - 20 ng/L [facility] CBC W Auto Differential pane l (Bld)on 03-20-2025 Basophils (Bld) [#/Vol] 0.04 10*3/uL [facility] Basophils/100 WBC (Bld) 0.7 % 0.0 - 2.0 % [facility] Eosinophils (Bld) [#/Vol] 0.13 10*3/uL [facility] Eosinophils/100 WBC (Bld) 2.3 % 0.0 - 6.0 % [facility] Erythrocyte distribution width (RBC) [Ratio] 12.8 % 11.5 - 14.5 % [facility] Hematocrit (Bld) [Volume fraction] 47.8 % 41.0 - 52.0 % [facility] Hemoglobin (Bld) [Mass/Vol] 16.9 g/dL 13.5 - 17.5 g/dL [facility] Immature granulocytes (Bld) [#/Vol] 0.02 10*3/[facility] Immature granulocytes/100 WBC (Bld) 0.4 % 0.0 - 0.9 % [facility] Comment on above: Immature Granulocyte Count (IG) includes promyelocytes, myelocytes and metamyelocytes but does not include bands. Percent differential counts (%) should be interpreted in the context of the absolute cell counts (cells/UL). Interpretation and review of laboratory results Abnormal [facility] Lymphocytes (Bld) [#/Vol] 1.73 10*3/uL [facility] Lymphocytes/100 WBC (Bld) 30.4 % 13.0 - 44.0 % [facility] MCH (RBC) [Entitic mass] 28.4 pg 26. 0 - 34.0 pg [facility] MCHC (RBC) [Mass/Vol] 35.4 g/dL 32.0 - 36.0 g/dL [facility] MCV (RBC) [Entitic vol] 80 fL 80 - 100 fL [facility] Monocytes (Bld) [#/Vol] 0.51 10*3/uL [facility] Monocytes/100 WBC (Bld) 8.9 % 2.0 - 10.0 % [facility] Neutrophils (Bld) [#/Vol] 3.27 10*3/uL [facility] Comment on above: Percent differential counts (%) should be interpreted in the context of the absolute cell counts (cells/uL). Neutrophils/100 WBC (Bld) 57.3 % 40.0 - 80.0 % [facility] Nucleated RBC/100 WBC (Bld) [Ratio] 0 % [facility] Platelets (Bld) [#/Vol] 214 10*3/uL [facility] RBC (Bld) [#/Vol] 5.95 10*6/uL [facility] WBC (Bld) [#/Vol] 5.7 10*3/uL [facility] Basophils (Bld) [#/Vol] 0.04 x10*3/uL Normal 0.00-0.10 [facility] Comment on above: Performed By: #### 5 7021-8 #### IRENE HULL ([id number]) [facility] ([facility]) [address] [place] [address] 34037 Basophils/100 WBC (Bld) 0.7 % Normal 0.0-2.0 U [facility] Comment on above: Performed By: #### 5 7021-8 #### IRENE HULL ([id number]) [facility] ([facility]) [address] [place] [address] 49818 Eosinophils (Bld) [#/Vol] 0.13 x10*3/uL Normal 0.00-0.70 [facility] Comment on above: Performed By: #### 5 7021-8 #### IRENE HULL ([id number]) [facility] ([facility]) [address] [place] [address] 90659 Eosinophils/100 WBC (Bld) 2.3 % Normal 0.0-6.0 [facility] Comment on above: Performed By: #### 5 7021-8 #### IRENE HULL ([id number]) [facility] ([facility]) [address] [place] [address] 15200 Erythrocyte distribution width (RBC) [Ratio] 12.8 % Normal 11.5-14.5 [facility] Comment on above: Performed By: #### 5 7021-8 #### IRENE HULL ([id number]) [facility] ([facility]) [address] [place] [address] 77935 Hematocrit (Bld) [Volume fraction] 47.8 % Normal 41.0-52.0 [facility] Comment on above: Performed By: #### 5 7021-8 #### IRENE HULL ([id number]) [facility] ([facility]) [address] [place] [address] 23532 Hemoglobin (Bld) [Mass/Vol] 16.9 g/dL Normal 13.5-17.5 [facility] Comment on above: Performed By: #### 5 7021-8 #### IRENE HULL ([id number]) [facility] ([facility]) [address] [place] [address] 75111 Immature granulocytes (Bld) [#/Vol] 0.02 x10*3/uL Normal 0.00-0.70 [facility] Comment on above: Performed By: #### 5 7021-8 #### IRENE HULL ([id number]) [facility] ([facility]) [address] [place] [address] 90973 Immature granulocytes/100 WBC (Bld) 0.4 % Normal 0.0-0.9 [facility] Comment on above: Result Comment: Kaylin ture Granulocyte Count (IG) includes promyelocytes, myelocytes and metamyelocytes but does not include bands. Percent differential counts (%) should be interpreted in the context of the absolute cell counts (cells/UL). Performed By: #### 5 7021-8 #### IRENE HULL ([id number]) [facility] ([facility]) [address] [place] [address] 70014 Lymphocytes (Bld) [#/Vol] 1.73 x10*3/uL Normal 1.20-4.80 [facility] Comment on above: Performed By: #### 5 7021-8 #### IRENE HULL ([id number]) [facility] ([facility]) [address] [place] [address] 32480 Lymphocytes/100 WBC (Bld) 30.4 % Normal 13.0-44.0 [facility] Comment on above: Performed By: #### 5 7021-8 #### IRENE HULL ([id number]) [facility] ([facility]) [address] [place] [address] MCH (RBC) [Entitic mass] 28.4 pg Normal 26.0-34.0 [facility] Comment on above: Performed By: #### 5 7021-8 #### IRENE HULL ([id number]) [facility] ([facility]) [address] [place] [address] MCHC (RBC) [Mass/Vol] 35.4 g/dL Normal 32.0-36.0 [facility] Comment on above: Performed By: #### 5 7021-8 #### IRENE HULL ([id number]) [facility] ([facility]) [address] [place] [address] MCV (RBC) [Entitic vol] 80 fL Normal 80-100 U [facility] Comment on above: Performed By: #### 5 7021-8 #### IRENE HULL ([id number]) [facility] ([facility]) [address] [place] [address] Monocytes (Bld) [#/Vol] 0.51 x10*3/uL Normal 0.10-1.00 [facility] Comment on above: Performed By: #### 5 7021-8 #### IRENE HULL ([id number]) [facility] ([facility]) [address] [place], [place] [phone] Monocytes/100 WBC (Bld) 8.9 % Normal 2.0-10.0 U [facility] Comment on above: Performed By: #### 5 7021-8 #### IRENE HULL ([id number]) [facility] ([facility]) [address] [place] [address] Neutrophils (Bld) [#/Vol] 3.27 x10*3/uL Normal 1.20-7.70 [facility] Comment on above: Result Comment: Perc ent differential counts (%) should be interpreted in the context of the absolute cell counts (cells/uL). Performed By: #### 5 7021-8 #### IRENE HULL ([id number]) [facility] ([facility]) [address] [place] [address] 69412 Neutrophils/100 WBC (Bld) 57.3 % Normal 40.0-80.0 [facility] Comment on above: Performed By: #### 5 7021-8 #### IRENE HULL ([id number]) [facility] ([facility]) [address] [place] [address] 02739 Nucleated RBC/100 WBC (Bld) [Ratio] 0.0 /100 WBCs Normal 0.0-0.0 [facility] Comment on above: Performed By: #### 5 7021-8 #### IRENE HULL ([id number]) [facility] ([facility]) [address] [place] [address] 60242 Platelets (Bld) [#/Vol] 214 x10*3/uL Normal 150-450 [facility] Comment on above: Performed By: #### 5 7021-8 #### IRENE HULL ([id number]) [facility] ([facility]) [address] [place] [address] 72646 RBC (Bld) [#/Vol] 5.95 x10*6/uL High 4.50-5.90 [facility] Comment on above: Performed By: #### 5 7021-8 #### IRENE HULL ([id number]) [facility] ([facility]) [address] [place] [address] 06491 WBC (Bld) [#/Vol] 5.7 x10*3/uL Normal 4.4-11.3 [facility] Comment on above: Performed By: #### 5 7021-8 #### IRENE HULL ([id number]) [facility] ([facility]) [address] [place] [address] 35408 [place]iposa 03-20-2025 STEVIEN Telephone (AGGENS4) ----- MARINELLIAMADO RODRIGUEZ ([id number]) 1990 M Date Time Provider Department 03/20/25 HARRIET RIVERA During your visit today, we recorded the following information about you: Bipin Wei, RN 03/20/2025 10:14 AM Signed Patient's significant other called and left a message yesterday about Amado. She returned my call this morning. [place] [facility] [place] [facility] [place] Yoly said, He is having so much pain from his ulcer and the [place] [facility] [place] refuses to give him his medications. He isn't able to eat and he is supposed to be on a liquid diet, you know those protein drinks and they won't give it to him. He can't even keep down water. I told Yoly if he cannot keep liquids down he needs to go to the ER and the [place] [facility] has a protocol for that. Yoly states they refuse to take him. That [place] [facility] is being investigated for not giving people their medications from the doctor. Can't you call the [place] [facility] [place]? I've called them, his mother has called them and cussed them out. They are not doing anything. I told Yoly this is beyond our capabilities and recommended that she and Amado's mom reach out to Amado's state attorney who will have the legal knowledge to assist Amado. Yoly verbally acknowledged my suggestion. Tex Potter RN RN 03/20/2025 3:41 PM Addendum Pt's mother called post op line in regards to [facility] She is not listed in his chart as a contact or on his HIPAA contact list. Advised her of this, and let her know that I could take her message, but could not give her medical information. She reports that he is having pain, so the [place] [facility] him to the hospital for evaluation, then [place] [facility]. Per the mother, the nurse at the [place] [facility] does not want him there, because they think he is medically unstable. The mother states the [place] [facility] is requesting a form sent over for a medical release for her son. Advised her that we did not evaluate him, but if the hospital that evaluated him deemed him medically unstable, they would have to write a medical release form. Advised her as well, that the [place] [facility] would contact us if they needed a form for his medical release. She then said our office has written notes for him to stay out of [place] [facility] before and we need to write one for him to leave. She states he needs to see his doctor. Advised her that the [place] [facility] makes the decision to take him to get medically treated, which they have done and they have not contacted our office. Advised her that I will forward her message to Dr. Rivera and Bipin Wei, RN. She insists that we do not need to speak with the [place] [facility] [place], because they don't do things like [facility]. She states, well you just don't know [facility], you just send them the form. Advised that is not our policy. Pt's mother has no further questions. Tex Hartman RN, BSN Bariatric Trust Clerk Tex Hartman RN 03/20/2025 3:02 PM Signed Pt's jim Rivera called again to insist that Dr. Rivera or Dr. Rivera's nurse write a medical release form to [facility] for pt. Advised (multiple times) that we do not write medical release forms without speaking with the [place] [facility] [place] and/or evaluation of the patient. Assured her that the [place] [facility] [place] has their protocols for pt's( inmates) who need medical attention/evaluation. Advised her that her and his mother's multiple requests have been noted and will be sent to Dr. Rivera and Bipin Wei, RN. Pt's jim was quite upset and states I'll be looking into you guys then, because you are supposed to write a note, and that is what we were told. She hung up the phone. She has since called back multiple times. Tex Hartman RN, BSN Bariatric Trust Clerk Allergies As of Date: 03/20/2025 Noted Allergy Reaction IBUPROFEN 02/19/2015 8 - GI Upset NAPROXEN 02/19/2015 8 - GI Upset PENICILLINS 04/23/2013 14 - Other: See Comments Comments: Throat started to close up. Date Reviewed: 03/05/2025 Reviewed by: Harriet Rivera MD - Fully Assessed Reason for Visit: Patient Question [1477] Prescriptions as of 03/20/2025 - pantoprazole DR [...] to medication (more content not included)... Normal [facility] Comprehensive metabolic 2000 panelon 03-20-2025 Albumin BCP dye [Mass/Vol] 4.7 g/dL 3.4 - 5.0 g/dL [facility] ALP [Catalytic activity/Vol] 78 U/L 33 - 120 U/L [facility] ALT With P-5'-P [Catalytic activity/Vol] 76 U/L High 10 - 52 U/L [facility] Comment on above: Patients treated wit h Sulfasalazine may generate falsely decreased results for ALT. Anion gap [Moles/Vol] 12 mmol/L 10 - 2 0 mmol/L [facility] AST With P-5'-P [Catalytic activity/Vol] 32 U/L 9 - 39 U/L [facility] Bilirubin [Mass/Vol] 0.9 mg/dL 0.0 - 1 .2 mg/dL [facility] Calcium [Mass/Vol] 9.7 mg/dL 8.6 - 10. 3 mg/dL [facility] Chloride [Moles/Vol] 106 mmol/L 98 - 10 7 mmol/L [facility] CO2 [Moles/Vol] 23 mmol/L 21 - 32 mmol/L [facility] Creatinine [Mass/Vol] 0.96 mg/dL 0.50 - 1.30 mg/dL [facility] eGFR - PINF [facility] Comment on above: Calculations of may mated GFR are performed using the 2020 CKD-EPI Study Refit equation without the race variable for the IDMS-Traceable creatinine methods. https://jasn.asnjournals.org/content/early//ASN.815 7834997 Glucose [Mass/Vol] 107 mg/dL High 74 - 99 mg/dL [facility] Interpretation and review of laboratory results Abnormal [facility] Potassium [Moles/Vol] 3.9 mmol/L 3.5 - 5.3 mmol/L [facility] Protein [Mass/Vol] 6.8 g/dL 6.4 - 8.2 g/dL [facility] Sodium [Moles/Vol] 137 mmol/L 136 - 145 mmol/L [facility] Urea nitrogen [Mass/Vol] 11 mg/dL 6 - 23 mg/dL [facility] Albumin BCP dye [Mass/Vol] 4.7 g/dL Normal 3.4-5.0 [facility] Comment on above: Performed By: #### 2 4323-8 #### IRENE HULL ([id number]) [facility] ([facility]) [address] [place] [address] ALP [Catalytic activity/Vol] 78 U/L Normal 33-120 [facility] Comment on above: Performed By: #### 2 4323-8 #### IRENE HULL ([id number]) [facility] ([facility]) [address] [place], [place] [address] ALT With P-5'-P [Catalytic activity/Vol] 76 U/L High 10-52 [facility] Comment on above: Result Comment: Radha ents treated with Sulfasalazine may generate falsely decreased results for ALT. Performed By: #### 2 4323-8 #### IRENE HULL ([id number]) [facility] ([facility]) [address] [place] [address] Anion gap [Moles/Vol] 12 mmol/L Normal 10-20 [facility] Comment on above: Performed By: #### 2 4323-8 #### IRENE HULL ([id number]) [facility] ([facility]) [address] [place] [address] AST With P-5'-P [Catalytic activity/Vol] 32 U/L Normal 9-39 [facility] Comment on above: Performed By: #### 2 4322-8 #### IRENE HULL ([id number]) [facility] ([facility]) [address] [place] [address] Bilirubin [Mass/Vol] 0.9 mg/dL Normal 0.0-1.2 [facility] Comment on above: Performed By: #### 2 4322-8 #### IRENE HULL ([id number]) [facility] ([facility]) [address] [place] [address] 96494 Calcium [Mass/Vol] 9.7 mg/dL Normal 8.6-10.3 [facility] Comment on above: Performed By: #### 2 4322-8 #### IRENE HULL ([id number]) [facility] ([facility]) [address] [place] [address] Chloride [Moles/Vol] 106 mmol/L Normal 98-107 [facility] Comment on above: Performed By: #### 2 3-8 #### IRENE HULL ([id number]) [facility] ([facility]) [address] [place] [address] CO2 [Moles/Vol] 23 mmol/L Normal 21-32 [facility] Comment on above: Performed By: #### 2 432-8 #### IRENE HULL (51952) [facility] ([facility]) [address] [place] [address] Creatinine [Mass/Vol] 0.96 mg/dL Normal 0.50-1.30 [facility] Comment on above: Performed By: #### 2 4323-8 #### IRENE HULL ([id number]) [facility] ([facility]) [address] [place] [address] 91994 GFR/1.73 sq M.predicted MDRD (S/P/Bld) [Vol rate/Area] mL/min/{1.73_m2} Normal >60 [facility] Comment on above: Result Comment: Calc ulations of estimated GFR are performed using the 2020 CKD-EPI Study Refit equation without the race variable for the IDMS-Traceable creatinine methods. https://jasn.asnjournals.org/content///ASN.799 7915912 Performed By: #### 2 432-8 #### IRENE HULL ([id number]) [facility] ([facility]) [address] [place] [address] 94325 Glucose [Mass/Vol] 107 mg/dL High 74-99 [facility] Comment on above: Performed By: #### 2 4323-8 #### IRENE HULL ([id number]) [facility] ([facility]) [address] [place] [address] 97430 Potassium [Moles/Vol] 3.9 mmol/L Normal 3.5-5.3 [facility] Comment on above: Performed By: #### 2 4323-8 #### IRENE HULL ([id number]) [facility] ([facility]) [address] [place] [address] 07866 Protein [Mass/Vol] 6.8 g/dL Normal 6.4-8.2 [facility] Comment on above: Performed By: #### 2 4323-8 #### IRENE HULL ([id number]) [facility] ([facility]) [address] [place] [address] 18558 Sodium [Moles/Vol] 137 mmol/L Normal 136-145 [facility] Comment on above: Performed By: #### 2 4323-8 #### IRENE HULL ([id number]) [facility] ([facility]) [address] [place] [address] 33939 Urea nitrogen [Mass/Vol] 11 mg/dL Normal 6-23 [facility] Comment on above: Performed By: #### 2 4323-8 #### IRENE HULL ([id number]) [facility] ([facility]) [address] [place] [address] 56730 Lipaseon 03-20-2025 Lipase [Catalytic activity/Vol] 11 U/L U/L [facility] Lipase [Catalytic activity/V ol]on 03-20-2025 Interpretation and review of laboratory results Normal [facility] Venipuncture immedia tely after or during the administration of Metamizole may lead to falsely low results. Testing should be performed immediately prior to Metamizole dosing. [facility] Triacylglycerol lipaseon Lipase [Catalytic activity/Vol] 11 U/L Normal [facility] Comment on above: Order Comment: Venip uncture immediately after or during the administration of Metamizole may lead to falsely low results. Testing should be performed immediately prior to Metamizole dosing. Performed By: #### 3 040-3 #### IRENE HULL ([id number]) [facility] ([facility]) [address] [place], [place] [phone] [facility] 03-19-2025 CNPN Telephone (AGGENS4) ----- AMADO MARINELLI ([id number]) 1990 M Date Time Provider Department 03/19/25 HARRIET RIVERA During your visit today, we recorded the following information about you: Parris Marin LPN 03/19/2025 2:53 PM Signed Woman that states she is patient's fiance Yoly Martel called to say [place] [facility] [facility] and they are not feeding him. [...] late last night. She reported to the slasher machine operator that her fiance (the pt) states he is having pain d/t hernia. She reports that he is unable to even drink water. Dr. Rivera was paged and did not return call. Advised the slasher machine operator that the caller is not listed as an emergency contact or on HIPAA list in this pt's chart. Pt is currently incarcerated. Business Process Architect will make note that firamírez is not listed in pt's chart Tex Hartman RN, BSN Bariatric Trust Clerk Allergies As of Date: 03/19/2025 Noted Allergy [...] laceration involving tendon, left, subsequ*02/18/2018 Bipolar disorder ([facility]) [F31.9] Pre-op examination [Z01.818] 01/23/2025 Gastroesophageal reflux disease [K21.9] 01/23/2025 Asthma ([facility]) [J45.909] 01/23/2025 Encounter Status:Closed by TEX HARTMAN on 03/20/25 [facility] XR ANKLE AND FOOT 6 VIEWS MD Michelle 03-15-2025 XR ANKLE AND FOOT 6 VIEWS [...] 03/15/2025 7:13:24 PM Ordering Provider: CATALINA DELAROSA [facility] CNOVon 03-05-2025 CNOV Office Visit (AGGENS 4) ----- AMADO MARINELLI ([id number]) 1990 M Date Time Provider Department 03/05/25 11:15 AM HARRIET RIVERA AGGENS4 During your visit today, [...] 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 Today he presents with a support person. He reports continued symptoms of substernal burning and occasional regurgitation. Symptoms are often post prandial and when laying supine at HS. Workup: - EGD (01/23/25; Roman): LA grade B esophagitis. Fuentes capsule placement. [...] Date ADHD (attention deficit hyperactivity disorder) Asthma ([facility]) Bipolar disorder ([facility]) Depression [facility], history of suicide attempt Genital herpes 04/2013 GERD (gastroesophageal reflux disease) Polysubstance abuse ([facility]) meth, heroin. Oversoe 07/2019 [facility] Tobacco use disorder PAST SURGICAL HISTORY: PAST [...] current facility[facility]admin[facility] (more content not included)... 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 He was to return the warehouse receiver around 01/26- and did not comply with [...] Encounter Status:Closed by HARRIET RIVERA on 02/13/25 [facility] 02-12-2025 [facility] Telephone (AGGENS4) ----- AMADO MARINELLI ([id number]) 1990 M Date Time Provider Department 02/12/25 [...] Encounter Status:Closed by CARA ESCALANTE [facility] AMADO MARINELLI ([id number]) 1990 M Date Time Provider Department 02/12/25 HARRIET RIEVRA AGGENS4 During your visit today, we recorded [...] 01/23/2025 Gastroesophageal reflux disease [K21.9] 01/23/2025 Asthma ([facility]) [J45.909] 01/23/2025 Encounter Status:Closed by PARRIS MARIN on 02/12/25 [facility] CNPN Telephone (AGGENS4) ----- AMADO MARINELLI ([id number]) 1990 M Date Time Provider Department 02/12/25 HARRIET RIVERA4 During your visit today, we recorded the following information about you: EscalanteCara 02/12/2025 2:01 PM Signed SW patient - [...] in the last 30 days. Obdulia Patel, NAZ Problem List As Of Date 02/12/2025 Noted Resolved Genital herpes [A60.00] 04/10/2013 ADHD (attention deficit hyperactivity disorder)* Depression [F32.A] Tobacco use disorder [F17.200] Hand laceration involving tendon, initial encou*02/18/2018 Hand laceration involving tendon, left, subsequ*02/18/2018 Bipolar disorder (HCC) [F31.9] Pre-op examination [Z01.818] 01/23/2025 Gastroesophageal reflux disease [K21.9] 01/23/2025 Asthma (HCC) [J45.909] 01/23/2025 Encounter Status:Closed by CARA ESCALANTE on 02/12/25 Normal [facility] ALLIED HEALTHon 02-10-2025 [facility] HNO ID: [id number] Author: SUSAN APARICIO CT Service: Radiology Author [...] PATIENT PRESENTS WITH AN IMPLANTABLE OR ATTACHED FISHER SWORDFISH: No RADIOLOGY DEPARTMENT: CT; Exam(s) Completed: Brain , Chest, and Spine PERIPHERAL IV DATA: Inpatient: see LDA documentation SIGNED BY: RAIN Holcomb February 10, 2025 4:29 PM Normal [facility] Amylase SerPl-cCncon 025 Amylase [Catalytic activity/Vol] 41 U/L Normal 30-104 [facility] Comment on above: Order Comment: Speci men Type: BLOOD SPECIMEN Ordering Facility: [facility] Address: [address] [place] [address] Performed By: #### 2 4323-8, HSTNT, 3040-3, 1798-8 #### [facility] CLIA [id number] [address] CBC panel Auto (Bld)on 02-10 Erythrocyte distribution width (RBC) [Ratio] 12.8 % Normal 11.5-15.0 [facility] Comment on above: Order Comment: Speci men Type: BLOOD SPECIMEN Ordering Facility: [facility] Address: [address] [place] [address] Performed By: #### 5 8410-2 #### [facility] CLIA [id number] [address] Hematocrit (Bld) [Volume fraction] 47.3 % Normal 39.0-51.0 [facility] Comment on above: Order Comment: Speci men Type: BLOOD SPECIMEN Ordering Facility: [facility] Address: [address] [place] [address] Performed By: #### 5 8410-2 #### [facility] CLIA [id number] [address] Hemoglobin (Bld) [Mass/Vol] 16.4 g/dL Normal 13.0-17.0 [facility] Comment on above: Order Comment: Speci men Type: BLOOD SPECIMEN Ordering Facility: [facility] Address: [address] [place] [address] Performed By: #### 5 8410-2 #### [facility] CLIA [id number] [address] MCH (RBC) [Entitic mass] 28.9 pg Normal 26.0-34.0 [facility] Comment on above: Order Comment: Speci men Type: BLOOD SPECIMEN Ordering Facility: [facility] Address: [address] [place] [address] Performed By: #### 5 8410-2 #### [facility] CLIA [id number] [address] MCHC (RBC) [Mass/Vol] 34.7 g/dL Normal 30.5-36.0 [facility] Comment on above: Order Comment: Speci men Type: BLOOD SPECIMEN Ordering Facility: [facility] Address: [address] [place] [address] Performed By: #### 5 8410-2 #### [facility] CLIA [id number] [address] [place] [address] [place] MCV (RBC) [Entitic vol] 83.4 fL Normal 80.0-100.0 [facility] Comment on above: Order Comment: Speci men Type: BLOOD SPECIMEN Ordering Facility: [facility] Address: [address] [place] [address] Performed By: #### 5 8410-2 #### [facility] CLIA [id number] [address] [place] [address] [place] Nucleated RBC (Bld) [#/Vol] 10*3/uL Normal <0.01 [facility] Comment on above: Order Comment: Speci men Type: BLOOD SPECIMEN Ordering Facility: [facility] Address: [address] [place] [address] Performed By: #### 5 8410-2 #### [facility] CLIA [id number] [address] [place] [address] [place] Platelet mean volume (Bld) [Entitic vol] 10.1 fL Normal 9.0-12.7 [facility] Comment on above: Order Comment: Speci men Type: BLOOD SPECIMEN Ordering Facility: [facility] Address: [address] [place] [address] Performed By: #### 5 8410-2 #### [facility] CLIA [id number] [address] [place] [address] [place] Platelets (Bld) [#/Vol] 211 10*3/uL Normal 150-400 [facility] Comment on above: Order Comment: Speci men Type: BLOOD SPECIMEN Ordering Facility: [facility] Address: [address] [place] [address] Performed By: #### 5 8410-2 #### [facility] CLIA [id number] [address] [place] RBC (Bld) [#/Vol] 5.67 10*6/uL Normal 4.20-6.00 [facility] Comment on above: Order Comment: Speci men Type: BLOOD SPECIMEN Ordering Facility: [facility] Address: [address] [place] [address] Performed By: #### 5 8410-2 #### [facility] CLIA [id number] [address] [place] WBC (Bld) [#/Vol] 6.34 10*3/uL Normal 3.70-11.00 [facility] Comment on above: Order Comment: Speci men Type: BLOOD SPECIMEN Ordering Facility: [facility] Address: [address] [place] [address] Performed By: #### 5 8410-2 #### [facility] CLIA [id number] [address] BRAIN WO IVCONon 02-11-[address] BRAIN WO IVCON * * *Final Report* * * DATE OF EXAM: Feb 10 2025 4:28PM [facility] [place] BRAIN WO IVCON / [...] No CT evidence of acute intracranial abnormality Train Control Electronic Technician: TRISTIAN Transcribe Date/Time: Feb 10 2025 4:43P Dictated by : ISRAEL HANLEY MD This examination was interpreted and the report reviewed and electronically signed by: ISRAEL HANLEY MD on Feb 10 2025 4:46PM EST [id number] [facility] CT CERVICAL SPINE WO IVCONon 02-10-2025 CT CERVICAL SPINE WO IVCON * * *Final Report* * * DATE OF EXAM: Feb 10 2025 4:28PM [facility] [place] [place] CERVICAL SPINE WO IVCON [...] Counting reference: Craniocervical junction. Anatomic Variants: None. Sausage Machine Operator (topogram) images: Oral contrast material in the [...] vertebrae with counting from the craniocervical junction. Train Control Electronic Technician: TRISTIAN Transcribe Date/Time: Feb 10 2025 4:46P Dictated by : ISRAEL HANLEY MD This examination was interpreted and the report reviewed and electronically signed by: ISRAEL HANLEY MD on Feb 10 2025 4:49PM EST [id number] [facility] CT CHEST W IVCONon CT CHEST W IVCON * * *Final Report* * * DATE OF EXAM: Feb 10 2025 4:28PM [facility] [place] - CT CHEST W IVCON / [...] findings. IMPRESSION: No acute CT abnormality identified. Train Control Electronic Technician: PSCB Transcribe Date/Time: Feb 10 2025 4:47P Dictated by : MYAH IVY MD This examination was interpreted and the report reviewed and electronically signed by: MYAH IVY MD on Feb 10 2025 4:52PM EST [id number] [facility] CT T-SPINE W RECON DATA -NBo n 02-10-2025 CT T-SPINE W RECON DATA -NB * * *Final Report* * * DATE OF EXAM: Feb 10 2025 4:28PM [facility] [place]85 [place] CT T-SPINE W RECON DATA [...] first thoracic rib is the T1 level. Sausage Machine Operator (topogram) images: No additional findings. Alignment: Alignment [...] thoracic spine. Thoracic spine mild degenerative changes Train Control Electronic Technician: [facility] Transcribe Date/Time: Feb 10 2025 4:46P Dictated by : SURY CUEVAS MD This examination was interpreted and the report reviewed and electronically signed by: SURY CUEVAS MD on Feb 10 2025 4:54PM EST [id number] Normal [facility] Comprehensive metabolic 2000 panelon 02-10-2025 Albumin [Mass/Vol] 4.4 g/dL Normal 3.9-4.9 [facility] Comment on above: Order Comment: Speci men Type: BLOOD SPECIMEN Ordering Facility: [facility] Address: [address] [place] [address] Performed By: #### 2 4323-8, HSTNT, 3040-3, 1798-8 #### [facility] CLIA [id number] [address] [place] [address] [place] ALP [Catalytic activity/Vol] 72 U/L Normal 38-113 [facility] Comment on above: Order Comment: Speci men Type: BLOOD SPECIMEN Ordering Facility: [facility] Address: [address] [place] [address] Performed By: #### 2 4323-8, HSTNT, 3040-3, 8 #### [facility] CLIA [id number] [address] [place] [address] [place] ALT [Catalytic activity/Vol] 52 U/L Normal 10-54 [facility] Comment on above: Order Comment: Speci men Type: BLOOD SPECIMEN Ordering Facility: [facility] Address: [address] [place] [address] Performed By: #### 2 4323-8, HSTNT, 3040-3, 8 #### [facility] CLIA [id number] [address] STATES OF [facility] Anion gap [Moles/Vol] 11 mmol/L Normal 8-15 [facility] Comment on above: Order Comment: Speci men Type: BLOOD SPECIMEN Ordering Facility: [facility] Address: [address] [place] [address] Performed By: #### 2 4323-8, HSTNT, 3040-3, 8 #### [facility] CLIA [id number] [address] OF [facility] AST [Catalytic activity/Vol] 35 U/L Normal 14-40 [facility] Comment on above: Order Comment: Speci men Type: BLOOD SPECIMEN Ordering Facility: [facility] Address: [address] [place] [address] Performed By: #### 2 4323-8, HSTNT, 3040-3, 8 #### [facility] CLIA [id number] [address] STATES [place] Bilirubin [Mass/Vol] 0.4 mg/dL Normal 0.2-1.3 [facility] Comment on above: Order Comment: Speci men Type: BLOOD SPECIMEN Ordering Facility: [facility] Address: [address] [place] [address] Performed By: #### 2 4323-8, HSTNT, 3040-3, 1798-04 #### [facility] CLIA [id number] [address] [place] [address] [place] Calcium [Mass/Vol] 9.2 mg/dL Normal 8.5-10.2 [facility] Comment on above: Order Comment: Speci men Type: BLOOD SPECIMEN Ordering Facility: [facility] Address: [address] [place] [address] Performed By: #### 2 4323-8, HSTNT, 304-3, 1798-04 #### [facility] CLIA [id number] [address] [place] [address] [place] Chloride [Moles/Vol] 101 mmol/L Normal 98-107 [facility] Comment on above: Order Comment: Speci men Type: BLOOD SPECIMEN Ordering Facility: [facility] Address: [address]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 ####[facility] [address] [place], [address] GAP 12 Normal 5-15 [facility] Comment on above: Performed By: #### L 500.2500, L501.4021, L100.0100 ####[facility] [address] [place], [address] GFR/1.73 sq M.predicted among non-blacks MDRD (S/P/Bld) [Vol rate/Area] 107 mL/min/{1.73_m2} Normal >60 [facility] Comment on above: Result Comment: mL/m in/1.73m2 CKD-EPI Creatinine Equation (2020) Performed By: #### L 500.2500, L501.4021, L100.0100 ####[facility] [address] [place], [address] Glucose [Mass/Vol] 105 mg/dL High 70-99 [facility] Comment on above: Performed By: #### L 500.2500, L501.4021, L100.0100 ####[facility] [address] [place], [address] Potassium [Moles/Vol] 3.8 mmol/L Normal 3.3-5.1 [facility] Comment on above: Performed By: #### L 500.2500, L501.4021, L100.0100 ####[facility] [address] [place], [address] Sodium [Moles/Vol] 139 mmol/L Normal 133-145 [facility] Comment on above: Performed By: #### L 500.2500, L501.4021, L100.0100 ####[facility] [address] [place], [address] Urea nitrogen [Mass/Vol] 14 mg/dL Normal 12-27 [facility] Comment on above: Performed By: #### L 500.2500, L501.4021, L100.0100 ####[facility] [address] [place], [address] Basophil percentageOrdered B y: Rupert Hernández on 12-27-2024 Basophils/100 WBC (Bld) 1.1 % High 0-1 [facility] Brain/Head without Contrasto n 12-27-2024 Brain/Head without Contrast [facility] Imaging Services [address] [place], [place] [address] Brain/Head without Contrast MR#: [id number] Acct: [id number] Name: AMADO MARINELLI Rep #: [id number] : 1990 M 34 From: Gee Seay DO PCP: Jennifer Mathur Sang, ONLINE PROJECT MANAGER-C Status: REG ER Study: Brain/Head without Contrast Date of Exam: 12/09 06/04 Exam# [id number] Ordering Dr: Rupert Hernández MD PROCEDURE: BRAIN/HEAD [...] Contrast IMPRESSION: NO ACUTE FINDINGS Reading Location: [facility] CC: [facility] ONLINE PROJECT MANAGER-C Jennifer Mathur; Dr. Rupert Hernández MD Train Control Electronic Technician: Signed Normal [facility] CBC W/Diff, Automatedon 12-09 Absolute Lymph 2.79 X10 3/uL Normal 0.83-4.51 [facility] Comment on above: Performed By: #### L 500.2500, L501.4021, L100.0100 ####[facility] [address] [place], [address] Absolute Neut 2.6 X10 3/uL Normal 2.0-7.7 [facility] Comment on above: Performed By: #### L 500.2500, L501.4021, L100.0100 ####[facility] [address] [place], [address] Basophils/100 WBC (Bld) 1.1 % High 0-1 [facility] Comment on above: Performed By: #### L 500.2500, L501.4021, L100.0100 ####[facility] [address] [place], [address] Eosinophils/100 WBC (Bld) 3.5 % Normal 0-5 [facility] Comment on above: Performed By: #### L 500.2500, L501.4021, L100.0100 ####[facility] [address] [place], [address] Erythrocyte distribution width (RBC) [Ratio] 13.3 % Normal 11.6-14.6 [facility] Comment on above: Performed By: #### L 500.2500, L501.4021, L100.0100 ####[facility] [address] [place], [address] Hematocrit (Bld) [Volume fraction] 47.1 % Normal 40-54 [facility] Comment on above: Performed By: #### L 500.2500, L501.4021, L100.0100 ####[facility] [address] [place], [address] Hemoglobin (Bld) [Mass/Vol] 16.3 g/dL Normal 13.0-16.5 [facility] Comment on above: Performed By: #### L 500.2500, L501.4021, L100.0100 ####[facility] [address] [place], [address] IG% 0.200 Normal 0.0-0.9 [facility] Comment on above: Result Comment: IG% - Immature Granulocytes (promyelocytes, myelocytes and metamyelocytes) > 1% indicates that a LEFT SHIFT is Present. Performed By: #### L 500.2500, L501.4021, L100.0100 ####[facility] [address] [place], [address] Lymphocytes/100 WBC (Bld) 44.3 % High 19-41 [facility] Comment on above: Performed By: #### L 500.2500, L501.4021, L100.0100 ####[facility] [address] [place], [address] MCH (RBC) [Entitic mass] 28.5 pg Normal 27.0-32.0 [facility] Comment on above: Performed By: #### L 500.2500, L501.4021, L100.0100 ####[facility] [address] [place], [address] MCHC (RBC) [Mass/Vol] 34.6 g/dL Normal 32-36 [facility] Comment on above: Performed By: #### L 500.2500, L501.4021, L100.0100 ####[facility] [address] [place], [address] MCV (RBC) [Entitic vol] 82.5 fL Normal 80-94 [facility] Comment on above: Performed By: #### L 500.2500, L501.4021, L100.0100 ####[facility] [address] [place], [address] Monocytes/100 WBC (Bld) 9.0 % Normal 0-10 [facility] Comment on above: Performed By: #### L 500.2500, L501.4021, L100.0100 ####[facility] [address] [place], [address] Neutrophils/100 WBC (Bld) 41.9 % Low 47-70 [facility] Comment on above: Performed By: #### L 500.2500, L501.4021, L100.0100 ####[facility] [address] [place], [address] Nucleated RBC (Bld) [#/Vol] 0 10*3/uL Normal 0-5 [facility] Comment on above: Performed By: #### L 500.2500, L501.4021, L100.0100 ####[facility] [address] [place], [address] Platelet mean volume (Bld) [Entitic vol] 10.7 fL Normal 6.2-12.0 [facility] Comment on above: Performed By: #### L 500.2500, L501.4021, L100.0100 ####[facility] [address] [place], [address] Platelets (Bld) [#/Vol] 255 10*3/uL Normal 150-450 [facility] Comment on above: Performed By: #### L 500.2500, L501.4021, L100.0100 ####[facility] [address] [place], [address] RBC (Bld) [#/Vol] 5.71 10*6/uL Normal 4.6-6.2 [facility] Comment on above: Performed By: #### L 500.2500, L501.4021, L100.0100 ####[facility] [address] [place], [address] RDW SD 39.5 fl Normal 35.1-43.9 [facility] Comment on above: Performed By: #### L 500.2500, L501.4021, L100.0100 ####[facility] [address] [place], [address] WBC (Bld) [#/Vol] 6.3 10*3/uL Normal 4.4-11.0 [facility] Comment on above: Performed By: #### L 500.2500, L501.4021, L100.0100 ####[facility] [address] [place], [address] Carbon dioxide, total [Moles /volume] in Central venous bloodOrdered By: Rupert Hernández on 12-27-2024 CO2 [Moles/Vol] 22.3 mmol/L 21.0-32.0 [facility] Chloride assayOrdered By: Akosua Hernández on 12-27-2024 Chloride [Moles/Vol] 104 mmol/L 98-108 [facility] D-Dimer Quantitative (DVT/PE )on 12-27-2024 D-DIMER QUANT 0.27 FEU/ug/m Normal 0.27-0.49 [facility] Comment on above: Result Comment: NORM AL D-Dimer level (<0.50) indicates no DVT or PE. Performed By: #### L 300.8000 #### [facility] [address] [place], [address] D-dimer measurement for deep venous thrombosisOrdered By: Rupert Hernández on 12-27-2024 D-Dimer Quantitative (PE/DVT) 0.27 FEU/ug/m 0.27-0.49 [facility] Comment on above: NORMAL D-Dimer level (<0.50) indicates no DVT or PE. Emergency Department Summary on 12-27-2024 Emergency Department Summary [facility] Medical Records Department [address] [place] [address] Emergency Department Summary 12/27/24 MR#: [id number] Acct: [id number] Name: AMADO MARINELLI Rep #: [id number] : 1990 34 From: Rupert Hernández MD PCP: Jennifer Mathur [facility], ONLINE PROJECT MANAGER-C Status:REG ER Location: ED HPI History of [...] seeing the ER a couple days ago. [facility] Medical History Gastric reflux Substance abuse Bipolar [...] Pressure [Lying] (more content not included)... Normal [facility] Eosinophil percentageOrdered By: Rupert Hernández on 12-27-2024 Eosinophils/100 WBC (Bld) 3.5 % 0-5 [facility] Erythrocyte distribution wid th (RBC) [Ratio]Ordered By: Rupert Hernández on 12-27-2024 Erythrocyte distribution width (RBC) [Entitic vol] 39.5 fL 35.1-43.9 [facility] Erythrocyte distribution wid th ratioOrdered By: Rupert Hernández on 12-27-2024 Erythrocyte distribution width (RBC) [Ratio] 13.3 % 11.6-14.6 [facility] Erythrocyte distribution wid th standard deviationOrdered By: Rupert Hernández on 12-27-2024 Erythrocyte distribution width (RBC) [Ratio] 39.5 fl 35.1-43.9 [facility] Estimation of creatinine shirley aranceOrdered By: Rupert Hernández on 12-27-2024 Estimated Creatinine Clearance Calc 129.00 ml/min 50-250 [facility] GFR/1.73 sq M.predicted erica g non-blacks MDRD (S/P/Bld) [Vol rate/Area]Ordered By: Rupert Hernández on 12-27-2024 Estimated GFR (MDRD) Non-Af Amer 107 >60 [facility] Comment on above: mL/min/1.73m2 CKD-EP I Creatinine Equation (2020) Glomerular filtration rate ( GFR) estimation/1.73 sq m using serum, plasma, or whole bOrdered By: Rupert Hernández 12-27-2024 GFR/1.73 sq M.predicted among non-blacks MDRD (S/P/Bld) [Vol rate/Area] 107 mL/min/{1.73_m2} >60 [facility] Comment on above: mL/min/1.73m2 CKD-EP I Creatinine Equation (2020) Hematocrit Auto (Bld) [Volum e fraction]Ordered By: Rupert Hernández on 12-27-2024 Hematocrit (Bld) [Volume fraction] 47.1 % 40-54 [facility] Hemoglobin measurementOrdere d By: Rupert Hernández on 12-27-2024 Hemoglobin (Bld) [Mass/Vol] 16.3 g/dL 13.0-16.5 [facility] Immature granulocytes/100 WB C Auto (Bld)Ordered By: Rupert Hernández on 12-27-2024 Immature granulocytes/100 WBC (Bld) 0.200 % 0.0-0.9 [facility] Comment on above: IG% - Immature Granu locytes (promyelocytes, myelocytes and metamyelocytes) > 1% indicates that a LEFT SHIFT is Present. L501.4021on 12-27-2024 Trop T High Sen < 6 Normal <=22 [facility] Comment on above: Performed By: #### L 500.2500, L501.4021, L100.0100 ####[facility] [address] [place], [address] Lymphocytes Auto (Unsp spec) [#/Vol]Ordered By: Rupert Hernández on 12-27-2024 Lymphocytes (Bld) [#/Vol] 2.79 10*3/uL 0.83-4.51 [facility] Lymphocytes/100 WBC Auto (Un sp spec)Ordered By: Rupert Hernández on 12-27-2024 Lymphocytes/100 WBC (Bld) 44.3 % High 19-41 [facility] MCV (mean corpuscular volume ) determinationOrdered By: Rupert Hernández on 12-27-2024 MCV (RBC) [Entitic vol] 82.5 fL 80-94 [facility] Mean corpuscular hemoglobin (MCH) determinationOrdered By: Rupert Hernández on 12-27-2024 MCH (RBC) [Entitic mass] 28.5 pg 27.0-32.0 [facility] Mean corpuscular hemoglobin concentration (MCHC) determinationOrdered By: Rupert Hernández on 12-27-2024 MCHC (RBC) [Mass/Vol] 34.6 g/dL 32-36 [facility] Mean platelet volume determi nationOrdered By: Rupert Hernández on 12-27-2024 Platelet mean volume (Bld) [Entitic vol] 10.7 fL 6.2-12.0 [facility] Monocyte percentageOrdered B y: Rupert Hernández on 12-27-2024 Monocytes/100 WBC (Bld) 9.0 % 0-10 [facility] Neutrophil percentageOrdered By: Rupert Hernández on 12-27-2024 Neutrophils/100 WBC (Bld) 41.9 % Low 47-70 [facility] Nucleated red blood cell per centageOrdered By: Rupert Hernández on 12-27-2024 Nucleated RBC/100 WBC (Bld) [Ratio] 0 % 0-5 [facility] Platelet countOrdered By: Akosua Hernández on 12-27-2024 Platelets (Bld) [#/Vol] 255 10*3/uL 150-450 [facility] Potassium (Unsp spec) [Mass/ Vol]Ordered By: Rupert Hernández on 12-27-2024 Potassium [Moles/Vol] 3.8 mmol/L 3.3-5.1 [facility] Potassium measurement (mass/ volume)Ordered By: Rupert Hernández on 12-27-2024 Potassium (Unsp spec) [Mass/Vol] 3.8 mmol/L 3.3-5.1 [facility] RBC Auto (Bld) [#/Vol]Ordere d By: Rupert Hernández on 12-27-2024 RBC (Bld) [#/Vol] 5.71 10*6/uL 4.6-6.2 [facility] Serum creatinine measurement (mass/volume)Ordered By: Rupert Hernández on 12-27-2024 Creatinine [Mass/Vol] 0.96 mg/dL 0.70-1.20 [facility] Serum glucose measurement (m ass/volume)Ordered By: Rupert Hernández on 12-27-2024 Glucose [Mass/Vol] 105 mg/dL High 70-99 [facility] Serum or plasma calcium jeff urement (mass/volume)Ordered By: Rupert Hernández on 12-27-2024 Calcium [Mass/Vol] 9.6 mg/dL 7.6-11.0 [facility] Serum or plasma urea nitroge n measurement (mass/volume)Ordered By: Rupert Hernández on 12-27-2024 Urea nitrogen [Mass/Vol] 14 mg/dL 4-19 [facility] Sodium levelOrdered By: Andrew Hernández on 04-19-2025 Sodium [Moles/Vol] 139 mmol/L 133-145 [facility] Troponin T.cardiac High sens itivity method [Mass/Vol]Ordered By: Rupert Hernández on 12-27-2024 Troponin T High Sensitivity 2 Hour < 6 ng/L <22 [facility] Troponin T High Sensitivity < 6 ng/L <22 [facility] Troponin T.cardiac [Mass/vol ume] in Serum or Plasma by High sensitivity methodOrdered By: Rupert Hernández on 12-27-2024 Troponin T.cardiac High sensitivity method [Mass/Vol] < 6 ng/L <22 [facility] Troponin T.cardiac High sensitivity method [Mass/Vol] < 6 ng/L <22 [facility] White blood cell (WBC) count Ordered By: Rupert Hernández on 12-27-2024 WBC (Bld) [#/Vol] 6.3 10*3/uL 4.4-11.[address] [facility] [address] HEAD OR BRAIN W/O CONTRAS Ton [...] Date: 12/24/2024 10:56:42 AM Ordering Provider: CATALINA DELAROSA [facility] ----- IRENEAMADO Gifty ([id number]) 1990 M Date Time Provider Department 11/18/24 HARRIET RIVERA AGGENS4 During your visit today, we recorded the following information about you: Bipin Wei, RN 2024 3:08 PM Signed I called [...] Visit: Returning Patient's Call [408] Patient Question [3782] Prescriptions as of 2024 - aspirin, enteric [...] Encounter Status:Closed by BIPIN WEI on 11/18/24 [facility] 11-17-2024 [facility] Telephone (AGGENS4) ----- AMADO MARINELLI ([id number]) 1990 M Date Time Provider Department 11/17/24 HARRIET RIVERA AGGENS4 During your visit today, [...] and that I will forward concerns to [facility] RN and Dr. Rivera. Advised pt that we will reach back out with further instructions. Pt understands and agrees to plan. Tex Hartman RN, BSN Bariatric Trust Clerk Allergies As of Date: 11/17/2024 Noted Allergy Reaction IBUPROFEN 02/19/2015 8 - GI Upset NAPROXEN 02/19/2015 8 - GI Upset PENICILLINS 04/23/2013 14 - Other: See Comments Comments: Throat started to close up. Date Reviewed: 10/23/2024 Reviewed by: Harriet Rivera MD - Fully Assessed Reason for Visit: Patient Question [[id number]] Patient Update [1234] Prescriptions as of 11/17/2024 - aspirin, enteric [...] Encounter Status:Closed by TEX HARTMAN on 11/17/24 [facility] [place] GASTRIC EMPTYING SOLIDon 11-12-2024 [place] GASTRIC EMPTYING SOLID * * *Final Report* * * DATE OF EXAM: Nov 12 2024 10:40AM [facility] 0017 - [place] GASTRIC EMPTYING SOLID / PROCEDURE REASON: Nausea [...] to calculate gastric retention values. Reference, https://doi.org/10.2967/j nmt.107.350602 * Solid meal ingested by the patient: [...] gastric emptying rate for the solid meal. Train Control Electronic Technician: [facility] Transcribe Date/Time: Nov 12 2024 10:41A Dictated by : CHANDRA PARKER MD This examination was interpreted and the report reviewed and electronically signed by: RUPERTO SIDHU MD on Nov 12 2024 10:53AM EST [id number] Normal [facility] Stomach Views for gastric emptying solid phase W radionuclide Bree 11-12-2024 IMPRESSION: Accelerated gastric emptying rate for the solid meal. Train Control Electronic Technician: [facility] Transcribe Date/Time: Nov 12 2024 10:41A Dictated by : CHANDRA PARKER MD This examination was interpreted and the report reviewed and electronically signed by: RUPERTO SIDHU MD on Nov 12 2024 10:53AM EST [facility] * * *Final Report* * * DATE OF EXAM: Nov 12 2024 10:40AM [facility] 0017 - [place] GASTRIC EMPTYING SOLID [...] to calculate gastric retention values. Reference, https://doi.org/10.2967/j nmt.107.710761 * Solid meal ingested by the patient: [...] hours (normal range, <60%) Fundal Accommodation: Adequate [facility] Provider, [facility]24 * * *Final Report* * * DATE OF EXAM: Nov 12 2024 10:40AM [facility] 0017 - [place] GASTRIC EMPTYING SOLID [...] to calculate gastric retention values. Reference, https://doi.org/10.2967/j nmt.107.326301 * Solid meal ingested by the patient: [...] gastric emptying rate for the solid meal. Train Control Electronic Technician: [facility] Transcribe Date/Time: Nov 12 2024 10:41A Dictated by : CHANDRA PARKER MD This examination was interpreted and the report reviewed and electronically signed by: RUPERTO SIDHU MD on Nov 12 2024 10:53AM [facility] Radiology Study observation (narrative) [facility] [place] Stomach Views for gastric emptying solid phase W radionuclide POOrdered By: Ccf Provider on 11-12-2024 [facility] CNOVon 10-23-2024 CNOV Office Visit (RAZ 4) ----- AMADO MARINELLI ([id number]) 1990 M Date Time Provider Department 10/23/24 3:00 PM HARRIET RIVERA4 During your visit today, [...] ADHD (attention deficit hyperactivity disorder) Bipolar disorder ([facility]) Depression [facility], history of suicide attempt Genital herpes 04/2013 Polysubstance abuse ([facility]) meth, heroin. Oversoe 07/2019 [facility] Tobacco use disorder PAST SURGICAL HISTORY: PAST [...] regurgitation). Negative (more content not included)... Normal [facility] CNPNon 10-23-2024 [facility] Telephone (AGGENS4) ----- AMADO MARINELLI ([id number]) 1990 M Date Time Provider Department 10/23/24 [...] Reason for Visit: Appointment [186] Cmt: EGD OVI ELIZABETHO Prescriptions as of 10/23/2024 - aspirin, enteric [...] Encounter Status:Closed by PARRIS MARIN on 10/23/24 Normal [facility] Surgery Visit Reporton 09-22 Surgery Visit Report [facility] [address] [place] [address]. [address] [place] [address] OFFICE VISIT Date of Service: 09/22/24 MR#: [id number] Acct: [id number] Name: AMADO MARINELLI Rep #: [id number] : 1990 Provider: KWADWO jimenez Age/Sex: 33/M Location: [facility] Status: Signed Intake Vital Signs 09/17/24 [...] Op Diagnoses Status post laparoscopic procedure Z98.890 [facility] Medical History Gastric reflux Substance [...] Acute Plan: Patient was referred to Dr. Roman Barron, appointment scheduled for this , 09/25. Will send in Tramadol to alternate with Tylenol No concern for post-op complication or infection at this time Patient seems to be improving Follow-up as needed 09/22/24 1128 Date Leisa Dickerson Signature: Date (if applicable) CC: MAYCOL ONLINE PROJECT MANAGER-C Jennifer Mathur Normal [facility] Abdomen/Pelvis W IV Cont ONL Yon 09-17-2024 Abdomen/Pelvis W IV Cont ONLY [facility] [address] [place] [address] Abdomen/Pelvis W IV Cont ONLY MR#: [id number] Acct: [id number] Name: AMADO MARINELLI Rep #: [id number] : 1990 M 33 From: Blayne greco MD PCP: MAYCOL Jenkins, ONLINE PROJECT MANAGER-C Status: REG ER Study: Abdomen/Pelvis W IV Cont ONLY Date of Exam: Exam# [id number] Ordering Dr: Luther San MD [id number] STUDY: CT ABDOMEN AND PELVIS WITH CONTRAST [...] Barclay MD at 12:28 EST , CC: [facility]; Dr. Luther San MD Train Control Electronic Technician: Signed Normal [facility] Absolute neutrophil countOrd ered By: Luther San on 09-17-2024 Neutrophils (Bld) [#/Vol] 3.6 10*3/uL 2.0-7.7 [facility] Albumin to globulin ratioOrd ered By: Luther San on 09-17-2024 Albumin/Globulin [Mass ratio] 1.2 {ratio} 0.9-2.4 [facility] Basophil percentageOrdered B y: Luther San on 09-17-2024 Basophils/100 WBC (Bld) 0.7 % 0-1 [facility] Bilirubin, totalOrdered By: Luther San on 09-17-2024 Bilirubin [Mass/Vol] 0.50 mg/dL 0.20-1.00 [facility] Comment on above: For patients on eltr ombopag therapy, use of Dimension [place] TBIL is not recommended. Blood urea nitrogen (BUN)/cr eatinine ratioOrdered By: Luther San on 09-17-2024 Urea nitrogen/Creatinine [Mass ratio] 14.6 mg/mg 10-20 [facility] CBC W/Diff, Automatedon Absolute Lymph 2.36 X10 3/uL Normal 0.83-4.51 [facility] Comment on above: Performed By: #### L 501.2450, L100.0100, L500.4050 ####[facility] [address] [place], [address] Absolute Neut 3.6 X10 3/uL Normal 2.0-7.7 [facility] Comment on above: Performed By: #### L 501.2450, L100.0100, L500.4050 ####[facility] [address] [place], [address] Basophils/100 WBC (Bld) 0.7 % Normal 0-1 [facility] Comment on above: Performed By: #### L 501.2450, L100.0100, L500.4050 ####[facility] [address] [place], [address] Eosinophils/100 WBC (Bld) 2.6 % Normal 0-5 [facility] Comment on above: Performed By: #### L 501.2450, L100.0100, L500.4050 ####[facility] [address] [place], [address] Erythrocyte distribution width (RBC) [Ratio] 13.2 % Normal 11.6-14.6 [facility] Comment on above: Performed By: #### L 501.2450, L100.0100, L500.4050 ####[facility] [address] [place], [address] Hematocrit (Bld) [Volume fraction] 47.2 % Normal 40-54 [facility] Comment on above: Performed By: #### L 501.2450, L100.0100, L500.4050 ####[facility] [address] [place], [address] Hemoglobin (Bld) [Mass/Vol] 16.6 g/dL High 13.0-16.5 [facility] Comment on above: Performed By: #### L 501.2450, L100.0100, L500.4050 ####[facility] [address] [place], [address] IG% 0.600 Normal 0.0-0.9 [facility] Comment on above: Result Comment: IG% - Immature Granulocytes (promyelocytes, myelocytes and metamyelocytes) > 1% indicates that a LEFT SHIFT is Present. Performed By: #### L 501.2450, L100.0100, L500.4050 ####[facility] [address] [place], [address] Lymphocytes/100 WBC (Bld) 34.6 % Normal 19-41 [facility] Comment on above: Performed By: #### L 501.2450, L100.0100, L500.4050 ####[facility] [address] [place], [address] MCH (RBC) [Entitic mass] 28.6 pg Normal 27.0-32.0 [facility] Comment on above: Performed By: #### L 501.2450, L100.0100, L500.4050 ####[facility] [address] [place], [address] MCHC (RBC) [Mass/Vol] 35.2 g/dL Normal 32-36 [facility] Comment on above: Performed By: #### L 501.2450, L100.0100, L500.4050 ####[facility] [address] [place], [address] MCV (RBC) [Entitic vol] 81.4 fL Normal 80-94 [facility] Comment on above: Performed By: #### L 501.2450, L100.0100, L500.4050 ####[facility] [address] [place], [address] Monocytes/100 WBC (Bld) 8.2 % Normal 0-10 [facility] Comment on above: Performed By: #### L 501.2450, L100.0100, L500.4050 ####[facility] [address] [place], [address] Neutrophils/100 WBC (Bld) 53.3 % Normal 47-70 [facility] Comment on above: Performed By: #### L 501.2450, L100.0100, L500.4050 ####[facility] [address] [place], [address] Nucleated RBC (Bld) [#/Vol] 0 10*3/uL Normal 0-5 [facility] Comment on above: Performed By: #### L 501.2450, L100.0100, L500.4050 ####[facility] [address] [place], [address] Platelet mean volume (Bld) [Entitic vol] 10.8 fL Normal 6.2-12.0 [facility] Comment on above: Performed By: #### L 501.2450, L100.0100, L500.4050 ####[facility] [address] [place], [address] Platelets (Bld) [#/Vol] 235 10*3/uL Normal 150-450 [facility] Comment on above: Performed By: #### L 501.2450, L100.0100, L500.4050 ####[facility] [address] [place], [address] RBC (Bld) [#/Vol] 5.80 10*6/uL Normal 4.6-6.2 [facility] Comment on above: Performed By: #### L 501.2450, L100.0100, L500.4050 ####[facility] [address] [place], [address] RDW SD 39.0 fl Normal 35.1-43.9 [facility] Comment on above: Performed By: #### L 501.2450, L100.0100, L500.4050 ####[facility] [address] [place], [address] WBC (Bld) [#/Vol] 6.8 10*3/uL Normal 4.4-11.0 [facility] Comment on above: Performed By: #### L 501.2450, L100.0100, L500.4050 ####[facility] [address] [place], [address] Carbon dioxide measurementOr dered By: Luther San on 09-17-2024 CO2 [Moles/Vol] 28.0 mmol/L 21.0-32.0 [facility] Chloride measurementOrdered By: Luther San on 09-17-2024 Chloride [Moles/Vol] 103 mmol/L 98-107 [facility] Comprehensive Metabolic Prof ilon 09-17-2024 Albumin [Mass/Vol] 3.9 g/dL Normal 3.2-5.0 [facility] Comment on above: Performed By: #### L 501.2450, L100.0100, L500.4050 ####[facility] [address] [place], [address] Albumin/Globulin [Mass ratio] 1.2 {ratio} Normal 0.9-2.4 [facility] Comment on above: Performed By: #### L 501.2450, L100.0100, L500.4050 ####[facility] [address] [place], [address] ALK P 75 U/L Normal 45-117 [facility] Comment on above: Performed By: #### L 501.2450, L100.0100, L500.4050 ####[facility] [address] [place], [address] ALT [Catalytic activity/Vol] 68 U/L High 16-61 [facility] Comment on above: Performed By: #### L 501.2450, L100.0100, L500.4050 ####[facility] [address] [place], [address] AST [Catalytic activity/Vol] 24 U/L Normal 15-37 [facility] Comment on above: Performed By: #### L 501.2450, L100.0100, L500.4050 ####[facility] [address] [place], [address] Bilirubin [Mass/Vol] 0.50 mg/dL Normal 0.20-1.00 [facility] Comment on above: Result Comment: For patients on eltrombopag therapy, use of Dimension [place] TBIL is not recommended. Performed By: #### L 501.2450, L100.0100, L500.4050 ####[facility] [address] [place], [address] BUN/CRE 14.6 RATIO Normal 10-20 [facility] Comment on above: Performed By: #### L 501.2450, L100.0100, L500.4050 ####[facility] [address] [place], [address] CA,Total 9.4 mg/dL Normal 8.5-10.1 [facility] Comment on above: Performed By: #### L 501.2450, L100.0100, L500.4050 ####[facility] [address] [place], [address] Chloride [Moles/Vol] 103 mmol/L Normal 98-107 [facility] Comment on above: Performed By: #### L 501.2450, L100.0100, L500.4050 ####[facility] [address] [place], [address] CO2 [Moles/Vol] 28.0 mmol/L Normal 21.0-32.0 [facility] Comment on above: Performed By: #### L 501.2450, L100.0100, L500.4050 ####[facility] [address] [place], [address] Creatinine [Mass/Vol] 0.96 mg/dL Normal 0.70-1.30 [facility] Comment on above: Result Comment: The validity of the calculated GFR GFRAA in patients over 70 years has not been determined. Clinical correlation is essential. Performed By: #### L 501.2450, L100.0100, L500.4050 ####[facility] [address] [place], [address] ECRCL 134.40 ml/min Normal [facility] Comment on above: Performed By: #### L 501.2450, L100.0100, L500.4050 ####[facility] [address] [place], [address] EST GFR - AA 115 mL/min Normal >60 [facility] Comment on above: Result Comment: Afri can [place] GFR Calc Performed By: #### L 501.2450, L100.0100, L500.4050 ####[facility] [address] [place], [address] GAP 5 Normal 5-15 [facility] Comment on above: Performed By: #### L 501.2450, L100.0100, L500.4050 ####[facility] [address] [place], [address] GFR/1.73 sq M.predicted among non-blacks MDRD (S/P/Bld) [Vol rate/Area] 95 mL/min/{1.73_m2} Normal >60 [facility] Comment on above: Result Comment: Non- GFR Calc Performed By: #### L 501.2450, L100.0100, L500.4050 ####[facility] [address] [place], [address] Globulin (S) [Mass/Vol] 3.2 g/dL Normal 2.2-4.2 [facility] Comment on above: Performed By: #### L 501.2450, L100.0100, L500.4050 ####[facility] [address] [place], [address] Glucose [Mass/Vol] 148 mg/dL High 74-106 [facility] Comment on above: Result Comment: Fast ing Glucose result greater than or equal to 126 mg/dL suggests DIABETES MELLITUS per A.D.A. criteria. Performed By: #### L 501.2450, L100.0100, L500.4050 ####[facility] [address] [place], [address] Potassium [Moles/Vol] 3.8 mmol/L Normal 3.5-5.1 [facility] Comment on above: Performed By: #### L 501.2450, L100.0100, L500.4050 ####[facility] [address] [place], [address] Sodium [Moles/Vol] 136 mmol/L Normal 136-145 [facility] Comment on above: Performed By: #### L 501.2450, L100.0100, L500.4050 ####[facility] [address] [place], [address] T PROT 7.1 g/dL Normal 6.4-8.2 [facility] Comment on above: Performed By: #### L 501.2450, L100.0100, L500.4050 ####[facility] [address] [place], [address] Urea nitrogen [Mass/Vol] 14 mg/dL Normal 7-18 [facility] Comment on above: Performed By: #### L 501.2450, L100.0100, L500.4050 ####[facility] [address] [place], [address] Emergency Department Summary on 09-17-2024 Emergency Department Summary [facility] Medical Records Department [address] [place] [address] Emergency Department Summary 09/17/24 MR#: [id number] Acct: [id number] Name: AMADO MARINELLI Rep #: [id number] : 1990 33 From: Luther San MD PCP: MAYCOL Jenkins, ONLINE PROJECT MANAGER-C Status:DEP ER Location: ED HPI HPI - [...] Prior similar symptoms: No Recent Illness/H[facility]ization: [facility] Medical History Gastric reflux Substance [...] Oxygen Del (more content not included)... Normal [facility] Eosinophil percentageOrdered By: Luther San on 09-17-2024 Eosinophils/100 WBC (Bld) 2.6 % 0-5 [facility] Erythrocyte distribution wid th (RBC) [Ratio]Ordered By: Luther San on 09-17-2024 Erythrocyte distribution width (RBC) [Entitic vol] 39.0 fL 35.1-43.9 [facility] Erythrocyte distribution wid th ratioOrdered By: Luther San on 09-17-2024 Erythrocyte distribution width (RBC) [Ratio] 13.2 % 11.6-14.6 [facility] Estimated glomerular filtrat ion rate (GFR) AmericanOrdered By: Luther San on 09-17-2024 Estimated GFR (MDRD) Amer 115 mL/min >60 [facility] Comment on above: GFR Calc Estimation of creatinine shirley aranceOrdered By: Luther San on 09-17-2024 Estimated Creatinine Clearance Calc 134.40 ml/min [facility] Glomerular filtration rate ( GFR) estimationOrdered By: Luther San on 09-17-2024 Estimated GFR (MDRD) Non-Af Amer 95 mL/min >60 [facility] Comment on above: Non- GFR Calc Glucose measurementOrdered B y: Luther San on 09-17-2024 Glucose [Mass/Vol] 148 mg/dL High 74-106 [facility] Comment on above: Fasting Glucose resu lt greater than or equal to 126 mg/dL suggests DIABETES MELLITUS per A.D.A. criteria. Hematocrit Auto (Bld) [Volum e fraction]Ordered By: Luther San on 09-17-2024 Hematocrit (Bld) [Volume fraction] 47.2 % 40-54 [facility] Hemoglobin measurementOrdere d By: Luther San on 09-17-2024 Hemoglobin (Bld) [Mass/Vol] 16.6 g/dL High 13.0-16.5 [facility] Immature granulocytes/100 WB C Auto (Bld)Ordered By: Luther San on 09-17-2024 Immature granulocytes/100 WBC (Bld) 0.600 % 0.0-0.9 [facility] Comment on above: IG% - Immature Granu locytes (promyelocytes, myelocytes and metamyelocytes) > 1% indicates that a LEFT SHIFT is Present. Laboratory - Chemistry and C hemistry - challengeOrdered By: Luther San on 09-17-2024 AST [Catalytic activity/Vol] 24 U/L 15-37 [facility] Lipaseon 09-17-2024 Lipase [Catalytic activity/Vol] 27 U/L Normal 13-75 [facility] Comment on above: Result Comment: Kaia kimball note: LIPASE revised reference range effective 22. New Lipase methodology. Expected to produce lower values than the previous assay method. NEW Reference Range: 13 - 75 U/L Performed By: #### L 501.2450, L100.0100, L500.4050 ####[facility] [address] [place], [address] Lipase measurementOrdered By : Luther San on 09-17-2024 Lipase [Catalytic activity/Vol] 27 U/L - [facility] Comment on above: Please note:LIPASE r evised reference range effective 22. New Lipase methodology. Expected to produce lower values than the previous assay method. NEW Reference Range: 13 - 75 U/L Lymphocytes Auto (Unsp spec) [#/Vol]Ordered By: Luther San on 09-17-2024 Lymphocytes (Bld) [#/Vol] 2.36 10*3/uL 0.83-4.51 [facility] Lymphocytes/100 WBC Auto (Un sp spec)Ordered By: Luther San on 09-17-2024 Lymphocytes/100 WBC (Bld) 34.6 % 19-41 [facility] MCV (mean corpuscular volume ) determinationOrdered By: Luther San on 09-17-2024 MCV (RBC) [Entitic vol] 81.4 fL 80-94 [facility] Mean corpuscular hemoglobin (MCH) determinationOrdered By: Luther San on 09-17-2024 MCH (RBC) [Entitic mass] 28.6 pg 27.0-32.0 [facility] Mean corpuscular hemoglobin concentration (MCHC) determinationOrdered By: Luther San on 09-17-2024 MCHC (RBC) [Mass/Vol] 35.2 g/dL 32-36 [facility] Mean platelet volume determi nationOrdered By: Luther San on 09-17-2024 Platelet mean volume (Bld) [Entitic vol] 10.8 fL 6.2-12.0 [facility] Monocyte percentageOrdered B y: Luther San on 09-17-2024 Monocytes/100 WBC (Bld) 8.2 % 0-10 [facility] Neutrophil percentageOrdered By: Luther San on 09-17-2024 Neutrophils/100 WBC (Bld) 53.3 % 47-70 [facility] Nucleated red blood cell per centageOrdered By: Luther San on 09-17-2024 Nucleated RBC/100 WBC (Bld) [Ratio] 0 % 0-5 [facility] Platelet countOrdered By: Sudhir San on 09-17-2024 Platelets (Bld) [#/Vol] 235 10*3/uL 150-450 [facility] Potassium measurementOrdered By: Luther San on 09-17-2024 Potassium [Moles/Vol] 3.8 mmol/L 3.5-5.1 [facility] RBC Auto (Bld) [#/Vol]Ordere d By: Luther San on 09-17-2024 RBC (Bld) [#/Vol] 5.80 10*6/uL 4.6-6.2 [facility] Serum anion gap measurementO rdered By: Luther San on 09-17-2024 Anion gap [Moles/Vol] 5 mmol/L 5-15 [facility] Serum globulin measurementOr dered By: Luther San on 09-17-2024 Globulin (S) [Mass/Vol] 3.2 g/dL 2.2-4.2 [facility] Serum or plasma alanine sheehan otransferase (ALT) measurementOrdered By: Luther San on 09-17-2024 ALT [Catalytic activity/Vol] 68 U/L High 16-61 [facility] Serum or plasma albumin jeff urement (mass/volume)Ordered By: Luther San on 09-17-2024 Albumin [Mass/Vol] 3.9 g/dL 3.2-5.0 [facility] Serum or plasma alkaline kaitlin sphatase measurementOrdered By: Luther San on 09-17-2024 ALP [Catalytic activity/Vol] 75 U/L 45-117 [facility] Serum or plasma calcium jeff urement (mass/volume)Ordered By: Luther San on 09-17-2024 Calcium [Mass/Vol] 9.4 mg/dL 8.5-10.1 [facility] Serum or plasma creatinine m easurement (mass/volume)Ordered By: Luther San on 09-17-2024 Creatinine [Mass/Vol] 0.96 mg/dL 0.70-1.30 [facility] Comment on above: The validity of the calculated GFR & GFRAA in patients over 70 years has not been determined. Clinical correlation is essential. Serum or plasma urea nitroge n measurement (mass/volume)Ordered By: Luther San on 09-17-2024 Urea nitrogen [Mass/Vol] 14 mg/dL 7-18 [facility] Sodium levelOrdered By: Luther San on 09-17-2024 Sodium [Moles/Vol] 136 mmol/L 136-145 [facility] Total proteinOrdered By: Claudy San on 09-17-2024 Protein [Mass/Vol] 7.1 g/dL 6.4-8.2 [facility] White blood cell (WBC) count Ordered By: Luther San on 09-17-2024 WBC (Bld) [#/Vol] 6.8 10*3/uL 4.4-11.0 [facility] Discharge Instructionon Discharge Instruction [facility] Medical Records Department [address] [place] [address] Instructions for Home/Discharge Instructions 09/15/24 0941 MR#: [id number] Acct: [id number] Name: AMADO MARINELLI Rep #: [id number] : 1990 33 From: Sancho Rodriguez MD PCP: Jennifer Mathur Sang, ONLINE PROJECT MANAGER-C Status:REG [facility] Discharge Instructions Diet Discharge Diet: Light diet [...] will make referral to Dr Matthew at [facility] Test Results: Test results from this visit [...] Simon Referrals / Follow Up: Jennifer Mathur, ONLINE PROJECT MANAGER-C [Primary Care Provider] - Disposition Disposition (needs filled in before D/C Order can be placed): Home, Self Care 09/15/24943 Sancho Rodriguez MD CC: MAYCOL ONLINE PROJECT MANAGER-C Jennifer Mathur Signed [facility] MR/POSTOP.[facility] 09-15-2024 MR/POSTOP.[facility] Medical Records Department [address] [place] [address] Anesthesia Postop Eval I 09/15/24 0942 MR#: [id number] Acct: [id number] Name: AMADO MARINELLI VANDANA Rep #: [id number] : 1990 33 From: Disha Amaya CRNA PCP: MAYCOL Jenkins, ONLINE PROJECT MANAGERYeniferC Status:REG SDC Y Race: C Location: [place] [address] Anesthesia: Postop Eval I Current Vital Signs [...] 1 completed: Yes 09/15/24 0943 Date Disha Monique BINDER FOLDER OPERATOR Cosigner Signature: Date CC: Signed Normal [facility] MR/[id number] 09-15-2024 MR/POSTOPAN2 [facility] Medical Records Department [address] [place] [address] Anesthesia Postop Eval II 09/15/24 1043 MR#: [id number] Acct: [id number] Name: AMADO MARINELLI Gifty ROSS Rep #: [id number] : 1990 33 From: Noe Simon MD PCP: MAYCOL Jenkins, ONLINE PROJECT MANAGER-C Status:REG SDC Y Race: C Location: [place] [address] Anesthesia Postop Eval I Sum Postop Eval Completion status Anesthesia document: Postop Eval 1 completed: Yes Anesthesia Postop Eval I Summary Anesthesia Postop Eval I Summary: Anesthesia Postop Eval I: Assessment Summary Airway patent Yes 09/15/24 09:43 BINDER FOLDER OPERATOR.WAYNE Spontaneous unlabored Yes 09/15/24 09:43 BINDER FOLDER OPERATOR.WAYNE respirations Mental status Awake,Calm 09/15/24 09:43 BINDER FOLDER OPERATOR.WAYNE nausea No 09/15/24 09:43 BINDER FOLDER OPERATOR.SADEOBAlcides Vomiting No 09/15/24 09:43 BINDER FOLDER OPERATOR.SADEOBAlcides Anesthesia Postop Eval I: Fluid Summary Crystalloid volume administer 800 09/15/24 09:43 BINDER FOLDER OPERATOR.WAYNE (ml) Colloids volume administered ( ml) Blood Product volume administered (ml) Total IV fluid infused 800 09/15/24 09:43 BINDER FOLDER OPERATOR.WAYNE Anesthesia Postop Eval I: Summary Notes Anesthesia Complication No 09/15/24 09:43 BINDER FOLDER OPERATOR.WAYNE Anesthesia Complication Comment: Post-operative progress note Anesthesia: Postop Eval II Evaluation Mental status: Awake Pain Level: 0 nausea: No Vomiting: No 09/15/24 1043 Date Noe Dickerson Signature: Date CC: Signed Normal [facility] Operative Reporton 5 Operative Report [facility] Medical Records Department [address] [place] [address] Operative Report 09/15/24 0933 MR#: [id number] Acct: [id number] Name: AMADO MARINELLI Rep #: [id number] : 1990 33 From: Sancho Rodriguez MD PCP: MAYCOL Jenkins, ONLINE PROJECT MANAGER-C Status:REG [facility] Location: [place] [address] Operative Report (Standard) Operative Information Date of Procedure: 09/15/24 Pre-Operative Diagnosis: GERD Post-Operative Diagnosis: Same Surgery/Procedure Performed: Exploratory laparoscopy reference data expert: Yes Lining Caser: Neeta Busch Tasks completed by educational assistant: Opening and Closing Type of Anesthesia: [...] 09/15/24 0941 Cosigner Signature (if applicable): CC: MAYCOL ONLINE PROJECT MANAGER-C Jennifer Mathur; Dr. Sancho Rodriguez MD Signed [facility] MR/PAT.[facility]on 09-04-2024 MR/PAT.[facility] Medical Records Department [address] [place] [address] PAT - Anesthesia 09/04/24 1312 MR#: [id number] Acct: [id number] Name: MARINELLIAMADO Rep #: [id number] : 1990 33 From: Naresh Jones MD PCP: MAYCOL Jenkins, ONLINE PROJECT MANAGER-C Status:PRE [facility] Y Race: C Location: [facility] Pre-Assessment Diagnosis/Proposed Procedure Planned Operative Procedure(s): Robotic Laparoscopic, Maxwell Fundoplication Anesthesia History Anesthesia History - office services specialist: Anesthesia History - office services specialist Hx Hospitalization No 08/29/24 14:50 Any [...] take am of surgery PONV PONV - office services specialist: PONV - office services specialist Female No 08/29/24 14:50 HX of [...] 08/05/24 13:36 Respiratory Assessment Respiratory Assessment - office services specialist: Respiratory Tract Infection Hx - office services specialist Hx Respiratory Tract Infection No 08/29/24 14:50 STOP Sleep Apnea STOP Sleep Apnea - office services specialist: STOP Sleep Apnea - office services specialist Hx Hypertension No 08/29/24 14:50 Hx [...] Tobacco Use History Tobacco Use History - office services specialist: Tobacco Use History - office services specialist Tobacco Use Smoking Status Current every day smoker 08/29/24 14:50 Hx Tobacco Use Yes 08/29/24 14:50 Years Smoking Packs Smoked per Day Smoking Cessation Date was within the last 15 years Hx Smoking Cessation Date Hx Smoking Cessation No 08/29/24 14:50 Counseling Hematologic Medial History Hematologic Hx - office services specialist: Hematologic Medical Hx - clinical documentation developer Hx of Blood Transfusion No 08/29/24 14:50 [...] confused, unrespo /Reproduction History /Reproductive History - office services specialist: /Reproductive Hx- office services specialist Hx Now Gestational Age (in weeks): EDC: Hx Hx Para Hx Section SAB No 08/29/24 14:50 [facility] Medical History (Updated 08/29/24 @ 14:57 by [...] of esoph (more content not included)... Normal [facility] 12 Lead EKGon 09-02-2024 12 Lead EKG [facility] [address] [place] [address] 12 Lead EKG 09/02/24 1259 MR#: [id number] Acct: [id number] Name: AMADO MARINELLI Rep #: [id number] : 1990 33 From: Gabriel Arreola MD Attending Dr: Dr. Sancho Rodriguez MD Status: PRE [facility] Ordering Dr: Noe Simon MD Date: 09/02/24 Location: [facility] Sex: M C Admitted: Test Reason : PREOP Blood Pressure : */* mmHG Vent. Rate : 70 BPM Atrial Rate : 70 BPM P-R Int : 152 ms QRS Dur : 102 ms QT Int : 404 ms P-R-T Axes : 66 12 57 degrees QTcB Int : 436 ms Normal sinus rhythm Normal ECG Confirmed by GABRIEL ARREOLA MD ([id number]), film editor LEISA GARCIA ([id number]) on 09/04/2024 2:20:04 PM Referred By: Sancho Rodriguez Confirmed By: GABRIEL ARREOLA MD 09/04/24 1420 Date Gabriel Arreola MD CC: C ONLINE PROJECT MANAGER-C Jennifer Mathur; Dr. Sancho Rodriguez MD; Dr. Noe Simon MD Signed Normal [facility] CBC-Complete Blood Cnt No Di ffon 09-02-2024 Erythrocyte distribution width (RBC) [Ratio] 13.0 % Normal 11.6-14.6 [facility] Comment on above: Performed By: #### L 100.0500 ####[facility] [address] [place], [place], [id number] Hematocrit (Bld) [Volume fraction] 49.4 % Normal 40-54 [facility] Comment on above: Performed By: #### L 100.0500 ####[facility] [address] [place], [place], [id number] Hemoglobin (Bld) [Mass/Vol] 16.9 g/dL High 13.0-16.5 [facility] Comment on above: Performed By: #### L 100.0500 ####[facility] [address] [place], [address] MCH (RBC) [Entitic mass] 28.6 pg Normal 27.0-32.0 [facility] Comment on above: Performed By: #### L 100.0500 ####[facility] [address] [place], [address] MCHC (RBC) [Mass/Vol] 34.2 g/dL Normal 32-36 [facility] Comment on above: Performed By: #### L 100.0500 ####[facility] [address] [place], [address] MCV (RBC) [Entitic vol] 83.6 fL Normal 80-94 [facility] Comment on above: Performed By: #### L 100.0500 ####[facility] [address] [place], [address] Platelet mean volume (Bld) [Entitic vol] 10.2 fL Normal 6.2-12.0 [facility] Comment on above: Performed By: #### L 100.0500 ####[facility] [address] [place], [address] Platelets (Bld) [#/Vol] 221 10*3/uL Normal 150-450 [facility] Comment on above: Performed By: #### L 100.0500 ####[facility] [address] [place], [address] RBC (Bld) [#/Vol] 5.91 10*6/uL Normal 4.6-6.2 [facility] Comment on above: Performed By: #### L 100.0500 ####[facility] [address] [place], [address] RDW SD 39.5 fl Normal 35.1-43.9 [facility] Comment on above: Performed By: #### L 100.0500 ####[facility] [address] [place], [address] WBC (Bld) [#/Vol] 5.7 10*3/uL Normal 4.4-11.0 [facility] Comment on above: Performed By: #### L 100.0500 ####[facility] [address] [place], [address] Surgery Visit Reporton 08-05 Surgery Visit Report [facility] [address] [place] [address] OFFICE VISIT Date of Service: 08/05/24 MR#: [id number] Acct: [id number] Name: AMADO MARINELLI Rep #: [id number] : 1990 Provider: Dr. Sancho menendez MD Age/Sex: 33/M Location: [facility] Status: Signed Intake Vital Signs 07/22/24 10:12 08/05/24 13:36 Height 6 ft 6 ft Weight: 214 lb BMI 29.0 BP 124/82 H Blood Pressure Location Rt brachial Position Sitting Respiration 16 Intake Visit Reasons: S/P EGD 07-22 Chief Complaint: uncontrolled reflux f/u EGD Creative Art Director Required: No Is patient in pain?: No [...] you fallen in the past year?: No [facility] Medical History (Updated 08/29/24 @ 14:57 by [...] scheduled for surgery. Sancho Rodriguez MD Pager: [facility] [address] [place] [address] [address] [place] [address] Office: [place] (more content not included)... Normal [facility] EGD Reporton 07-22-2024 EGD Report [facility] Medical Records Department [address] [place] [address] EGD Report MR#: [id number] Acct: [id number] Name: AMADO MARINELLI Rep #: [id number] : 1990 33 From: Sancho Rodriguez MD PCP: MAYCOL Jenkins, ONLINE PROJECT MANAGER-C Status:REG [facility] Patient Name: Amado Marinelli Procedure Date: 07/22/2024 11:00 AM Date of : 1990 Age: 33 Procedure: Upper GI endoscopy Indications: Esophageal reflux Providers: Sancho Rodriguez MD Referring MD: Jennifer Holland, Lead Designer-c Medicines: Propofol per Anesthesia Patient Profile: This [...] 2 weeks. Procedure Code(s): --- Professional --- 78175, Esophagogastroduodenoscop y, flexible, transoral; with biopsy, single or multiple Diagnosis Code(s): --- Professional --- K21.00, Gastro-esophageal reflux disease with esophagitis, without bleeding CPT copyright 2021 [employer]. All rights reserved. The codes documented in this report are preliminary and upon fence machine operator review may be revised to meet current compliance requirements. Sancho Rodriguez MD 07/22/2024 11:13:26 AM This report has been signed electronically. Number of Addenda: 0 Note Initiated On: 07/22/2024 11:00 AM 07/22/24 1113 Date Sancho Rodriguez MD Cosigner Signature: Date (if indicated) CC: MAYCOL ONLINE PROJECT MANAGER-C Jennifer Mathur; Dr. Sancho Rodriguez MD Date Dictated: 07/22/24 1100 Date Transcribed: Train Control Electronic Technician: JASON Signed [facility] MR/POSTOP.ANEon 07-22-2024 MR/POSTOP.ANE [facility] Medical Records Department [address] [place] [address] Anesthesia Postop Eval I 07/22/24 1123 MR#: [id number] Acct: [id number] Name: AMADO MARINELLI Rep #: [id number] : 1990 33 From: Candido Mercedes PCP: MAYCOL Jenkins, ONLINE PROJECT MANAGER-C Status:REG SDC Y Race: C Location: [place] [address] Anesthesia: Postop Eval I Current Vital Signs [...] document: Postop Eval 1 completed: Yes 07/22/24 112 Date Candido Dickerson Signature: Date CC: Signed [facility] MR/[id number] 07-22-2024 MR/POSTOPAN2 [facility] Medical Records Department [address] [place] [address] Anesthesia Postop Eval II 07/22/24 1401 MR#: [id number] Acct: [id number] Name: AMADO MARINELLI Rep #: [id number] : 1990 33 From: Naresh Jones MD PCP: MAYCOL Jenkins, ONLINE PROJECT MANAGER-C Status:DEP SDC Y Race: C Location: [place] Anesthesia Postop [...] Anesthesia Complication: No 07/22/24 1402 Date Naresh Jones MD Cosigner Signature: Date CC: Signed Normal [facility] Special Stain Group Ion - Special Stain Group I ------- Patient Age/Sex Location Account Attending Physician AMADO MARINELLI 33/M EN [id number] Dr. Sancho Rodriguez MD Specimen: [id number] Received: 07/22/24 Status: MYKEL Richards Num: [id number] Spec Type: EGD BIOPSY Subm Dr: Dr. [...] specimen is totally submitted in one cassette. . 07/23/2024 TC: 5 CPT:59835,13453 Patient Age/Sex Location Account Attending Physician AMADO MARINELLI 33/M EN [id number] Dr. Sancho Rodriguez MD Signed (signature on file) Dr. Damien Pickering DO 07/24/24 1136 Normal [facility] Comment on above: Performed By: #### P SSI ####[facility] [address] [place], [place], [id number] CNOVon 07-17-2024 CNOV Office Visit (UCWSTR ) ----- AMADO MARINELLI ([id number]) 1990 M Date Time Provider Department 07/17/24 6:15 PM ALFRED MCKEON [facility] During your visit today, we recorded the following information about you: Temperature Pulse Respiration Blood pressure 98.7 degrees 79/minute 20/minute 123/84 Weight 98 kg Alfred Mckeon APRN.GAS APPLIANCE ADJUSTER 07/17/2024 6:25 PM Signed Subjective HPI HPI [...] ADHD (attention deficit hyperactivity disorder) Bipolar disorder ([facility]) Depression [facility], history of suicide attempt Genital herpes 04/2013 Polysubstance abuse ([facility]) meth, heroin. Oversoe 07/2019 [facility] Tobacco use disorder PAST SURGICAL HISTORY Procedure [...] - PREDNISONE 10 MG TABLET Alfred Mckeon APRN.GAS APPLIANCE ADJUSTER Allergies As of Date: 07/17/2024 Noted Allergy [...] [Z20.89] History (more content not included)... Normal [facility] Surgery Visit Reporton 06-10 Surgery Visit Report [facility] [address] [place] [address] OFFICE VISIT Date of Service: 06/10/24 MR#: [id number] Acct: [id number] Name: AMADO MARINELLI Rep #: [id number] : 1990 Provider: Dr. Sancho menendez MD Age/Sex: 33/M Location: [facility] Status: Signed Intake Vital Signs 10/24/23 [...] proceed with procedure. Sancho Rodriguez MD Pager: [facility] [address] [place] [address], [address] [place] [address] Office: Orders: Orders EGD Today (more content not included)... Normal [facility] CBC-Complete Blood Cnt No Di ffon 05-21-2024 Erythrocyte distribution width (RBC) [Ratio] 13.2 % Normal 11.6-14.6 [facility] Comment on above: Performed By: #### L 100.0500, L501.6710, L501.9520, L500.4050, L101.9900 #### [facility] [address] [place] [address], [id number] Hematocrit (Bld) [Volume fraction] 47.9 % Normal 40-54 [facility] Comment on above: Performed By: #### L 100.0500, L501.6710, L501.9520, L500.4050, L101.9900 #### [facility] [address] [place], [address] Hemoglobin (Bld) [Mass/Vol] 16.3 g/dL Normal 13.0-16.5 [facility] Comment on above: Performed By: #### L 100.0500, L501.6710, L501.9520, L500.4050, L101.9900 #### [facility] [address] [place], [address] MCH (RBC) [Entitic mass] 27.8 pg Normal 27.0-32.0 [facility] Comment on above: Performed By: #### L 100.0500, L501.6710, L501.9520, L500.4050, L101.9900 #### [facility] [address] [place], [address] MCHC (RBC) [Mass/Vol] 34.0 g/dL Normal 32-36 [facility] Comment on above: Performed By: #### L 100.0500, L501.6710, L501.9520, L500.4050, L101.9900 #### [facility] [address] [place], [address] MCV (RBC) [Entitic vol] 81.6 fL Normal 80-94 [facility] Comment on above: Performed By: #### L 100.0500, L501.6710, L501.9520, L500.4050, L101.9900 #### [facility] [address] [place], [address] Platelet mean volume (Bld) [Entitic vol] 10.1 fL Normal 6.2-12.0 [facility] Comment on above: Performed By: #### L 100.0500, L501.6710, L501.9520, L500.4050, L101.9900 #### [facility] [address] [place], [address] Platelets (Bld) [#/Vol] 233 10*3/uL Normal 150-450 [facility] Comment on above: Performed By: #### L 100.0500, L501.6710, L501.9520, L500.4050, L101.9900 #### [facility] [address] [place], [address] RBC (Bld) [#/Vol] 5.87 10*6/uL Normal 4.6-6.2 [facility] Comment on above: Performed By: #### L 100.0500, L501.6710, L501.9520, L500.4050, L101.9900 #### [facility] [address] [place], [address] RDW SD 39.3 fl Normal 35.1-43.9 [facility] Comment on above: Performed By: #### L 100.0500, L501.6710, L501.9520, L500.4050, L101.9900 #### [facility] [address] [place], [address] WBC (Bld) [#/Vol] 4.6 10*3/uL Normal 4.4-11.0 [facility] Comment on above: Performed By: #### L 100.0500, L501.6710, L501.9520, L500.4050, L101.9900 #### [facility] [address] [place], [address] CRPon 05-21-2024 C-REACTIVE PROT < 2.90 Normal 0.0-3.0 [facility] Comment on above: Result Comment: C-Re active Protein (CRP) provides useful information for the diagnosis, therapy and monitoring of inflammatory processes and associated diseases. For the evaluation of Relative Risk for Cardiovascular Disease, a High Sensitivity CRP (HSCRP) should be ordered. Performed By: #### L 100.0500, L501.6710, L501.9520, L500.4050, L101.9900 #### [facility] [address] [place], [address] Comprehensive Metabolic Prof ilon 05-21-2024 Albumin [Mass/Vol] 4.0 g/dL Normal 3.2-5.0 [facility] Comment on above: Performed By: #### L 100.0500, L501.6710, L501.9520, L500.4050, L101.9900 #### [facility] [address] [place], [address] Albumin/Globulin [Mass ratio] 1.2 {ratio} Normal 0.9-2.4 [facility] Comment on above: Performed By: #### L 100.0500, L501.6710, L501.9520, L500.4050, L101.9900 #### [facility] [address] [place], [address] ALK P 83 U/L Normal 45-117 [facility] Comment on above: Performed By: #### L 100.0500, L501.6710, L501.9520, L500.4050, L101.9900 #### [facility] [address] [place], [address] ALT [Catalytic activity/Vol] 106 U/L High 16-61 [facility] Comment on above: Performed By: #### L 100.0500, L501.6710, L501.9520, L500.4050, L101.9900 #### [facility] [address] [place], [address] AST [Catalytic activity/Vol] 45 U/L High 15-37 [facility] Comment on above: Performed By: #### L 100.0500, L501.6710, L501.9520, L500.4050, L101.9900 #### [facility] [address] [place], [address] Bilirubin [Mass/Vol] 0.70 mg/dL Normal 0.20-1.00 [facility] Comment on above: Result Comment: For patients on eltrombopag therapy, use of Dimension [place] TBIL is not recommended. Performed By: #### L 100.0500, L501.6710, L501.9520, L500.4050, L101.9900 #### [facility] [address] [place], [address] BUN/CRE 12.9 RATIO Normal 10-20 [facility] Comment on above: Performed By: #### L 100.0500, L501.6710, L501.9520, L500.4050, L101.9900 #### [facility] [address] [place], [address] CA,Total 9.8 mg/dL Normal 8.5-10.1 [facility] Comment on above: Performed By: #### L 100.0500, L501.6710, L501.9520, L500.4050, L101.9900 #### [facility] [address] [place], [address] Chloride [Moles/Vol] 105 mmol/L Normal 98-107 [facility] Comment on above: Performed By: #### L 100.0500, L501.6710, L501.9520, L500.4050, L101.9900 #### [facility] [address] [place], [address] CO2 [Moles/Vol] 27.0 mmol/L Normal 21.0-32.0 [facility] Comment on above: Performed By: #### L 100.0500, L501.6710, L501.9520, L500.4050, L101.9900 #### [facility] [address] [place], [address] Creatinine [Mass/Vol] 1.01 mg/dL Normal 0.70-1.30 [facility] Comment on above: Result Comment: The validity of the calculated GFR GFRAA in patients over 70 years has not been determined. Clinical correlation is essential. Performed By: #### L 100.0500, L501.6710, L501.9520, L500.4050, L101.9900 #### [facility] [address] [place], [address] EST GFR - AA 109 mL/min Normal >60 [facility] Comment on above: Result Comment: Afri can [place] GFR Calc Performed By: #### L 100.0500, L501.6710, L501.9520, L500.4050, L101.9900 #### [facility] [address] [place], [address] GAP 4 Low 5-15 [facility] Comment on above: Performed By: #### L 100.0500, L501.6710, L501.9520, L500.4050, L101.9900 #### [facility] [address] [place], [address] GFR/1.73 sq M.predicted among non-blacks MDRD (S/P/Bld) [Vol rate/Area] 90 mL/min/{1.73_m2} Normal >60 [facility] Comment on above: Result Comment: Non- GFR Calc Performed By: #### L 100.0500, L501.6710, L501.9520, L500.4050, L101.9900 #### [facility] [address] [place], [address] Globulin (S) [Mass/Vol] 3.2 g/dL Normal 2.2-4.2 [facility] Comment on above: Performed By: #### L 100.0500, L501.6710, L501.9520, L500.4050, L101.9900 #### [facility] [address] [place], [address] Glucose [Mass/Vol] 109 mg/dL High 74-106 [facility] Comment on above: Result Comment: Fast ing Glucose result from 100 to 125 mg/dL suggests IMPAIRED HOMEOSTASIS per A.D.A. criteria. Performed By: #### L 100.0500, L501.6710, L501.9520, L500.4050, L101.9900 #### [facility] [address] [place], [address] Potassium [Moles/Vol] 3.9 mmol/L Normal 3.5-5.1 [facility] Comment on above: Performed By: #### L 100.0500, L501.6710, L501.9520, L500.4050, L101.9900 #### [facility] [address] [place], [address] Sodium [Moles/Vol] 136 mmol/L Normal 136-145 [facility] Comment on above: Performed By: #### L 100.0500, L501.6710, L501.9520, L500.4050, L101.9900 #### [facility] [address] [place], [address] T PROT 7.2 g/dL Normal 6.4-8.2 [facility] Comment on above: Performed By: #### L 100.0500, L501.6710, L501.9520, L500.4050, L101.9900 #### [facility] [address] [place], [address] Urea nitrogen [Mass/Vol] 13 mg/dL Normal 7-18 [facility] Comment on above: Performed By: #### L 100.0500, L501.6710, L501.9520, L500.4050, L101.9900 #### [facility] [address] [place], [address] Erythrocyte Sed Rateon 05-21 SED RATE 3 mm/hr Normal 0-20 [facility] Comment on above: Performed By: #### L 100.0500, L501.6710, L501.9520, L500.4050, L101.9900 #### [facility] [address] [place], [address] Thyroid Stim Hormone (TSH)on 05-21-2024 TSH 1.000 uIU/mL Normal 0.358-3.74 0 [facility] Comment on above: Performed By: #### L 100.0500, L501.6710, L501.9520, L500.4050, L101.9900 #### [facility] [address] [place], [place], [id number] CBC panel Auto (Bld)on 03-14 Erythrocyte distribution width (RBC) [Ratio] 13.2 % Normal 11.5-15.0 [facility] Comment on above: Order Comment: Speci men Type: BLOOD SPECIMEN Ordering Facility: [facility] Address: [address] [id number] Performed By: #### 5 8410-2 #### [facility] CLIA [id number] [address] [place], [place] [address] [place] Hematocrit (Bld) [Volume fraction] 44.9 % Normal 39.0-51.0 [facility] Comment on above: Order Comment: Speci men Type: BLOOD SPECIMEN Ordering Facility: [facility] Address: [address] [place] [address] Performed By: #### 5 8410-2 #### [facility] CLIA [id number] [address] [place], [place] [address] [place] Hemoglobin (Bld) [Mass/Vol] 15.6 g/dL Normal 13.0-17.0 [facility] Comment on above: Order Comment: Speci men Type: BLOOD SPECIMEN Ordering Facility: [facility] Address: [address] [place] [address] Performed By: #### 5 8410-2 #### [facility] CLIA [id number] [address] [place] [address] MCH (RBC) [Entitic mass] 27.9 pg Normal 26.0-34.0 [facility] Comment on above: Order Comment: Speci men Type: BLOOD SPECIMEN Ordering Facility: [facility] Address: [address] [place] [address] Performed By: #### 5 8410-2 #### [facility] CLIA [id number] [address] [place] [address] MCHC (RBC) [Mass/Vol] 34.7 g/dL Normal 30.5-36.0 [facility] Comment on above: Order Comment: Speci men Type: BLOOD SPECIMEN Ordering Facility: [facility] Address: [address] [place] [address] Performed By: #### 5 8410-2 #### [facility] CLIA [id number] [address] [place] [address] MCV (RBC) [Entitic vol] 80.2 fL Normal 80.0-100.0 M [facility] Comment on above: Order Comment: Speci men Type: BLOOD SPECIMEN Ordering Facility: [facility] Address: [address] [place] [address] Performed By: #### 5 8410-2 #### [facility] CLIA [id number] [address] [place] [address] Nucleated RBC (Bld) [#/Vol] 10*3/uL Normal <0.01 [facility] Comment on above: Order Comment: Speci men Type: BLOOD SPECIMEN Ordering Facility: [facility] Address: [address] [place] [address] Performed By: #### 5 8410-2 #### [facility] CLIA [id number] [address] [place] [address] [place] Platelet mean volume (Bld) [Entitic vol] 9.9 fL Normal 9.0-12.7 [facility] Comment on above: Order Comment: Speci men Type: BLOOD SPECIMEN Ordering Facility: [facility] Address: [address] [place] [address] Performed By: #### 5 8410-2 #### [facility] CLIA [id number] [address] [place] [address] [place] Platelets (Bld) [#/Vol] 199 10*3/uL Normal 150-400 [facility] Comment on above: Order Comment: Speci men Type: BLOOD SPECIMEN Ordering Facility: [facility] Address: [address] [place] [address] Performed By: #### 5 8410-2 #### [facility] CLIA [id number] [address] [place] [address] [place] RBC (Bld) [#/Vol] 5.60 10*6/uL Normal 4.20-6.00 [facility] Comment on above: Order Comment: Speci men Type: BLOOD SPECIMEN Ordering Facility: [facility] Address: [address] [place] [address] Performed By: #### 5 8410-2 #### [facility] CLIA [id number] [address] [place] [address] [place] WBC (Bld) [#/Vol] 5.84 10*3/uL Normal 3.70-11.00 [facility] Comment on above: Order Comment: Speci men Type: BLOOD SPECIMEN Ordering Facility: [facility] Address: [address] [place] [address] Performed By: #### 5 8410-2 #### [facility] CLIA [id number] [address] [place], [place] [address] [facility] [place] Comprehensive metabolic 2000 panelon 03-14-2024 Albumin [Mass/Vol] 4.0 g/dL Normal 3.2-5.0 [facility] Comment on above: Order Comment: Speci men Type: BLOOD SPECIMEN Ordering Facility: [facility] Address: [address] [place] [address] Performed By: #### 1 9123-9, 69044-1 #### [facility] CLIA [id number] [address] [place] [address] [place] ALP [Catalytic activity/Vol] 79 U/L Normal 45-117 [facility] Comment on above: Order Comment: Speci men Type: BLOOD SPECIMEN Ordering Facility: [facility] Address: [address] [place] [address] Performed By: #### 1 9123-9, 04316-6 #### [facility] CLIA [id number] [address] [place] [address] [place] ALT [Catalytic activity/Vol] 64 U/L High 13-61 [facility] Comment on above: Order Comment: Speci men Type: BLOOD SPECIMEN Ordering Facility: [facility] Address: [address] [place] [address] Result Comment: Resu lts may be falsely depressed after the administration of Sulfasalazine and/or Sulfapyridine. Performed By: #### 1 9123-9, 35651-8 #### [facility] CLIA [id number] [address] [place] [address] [place] Anion gap [Moles/Vol] 5 mmol/L Normal 5-16 [facility] Comment on above: Order Comment: Speci men Type: BLOOD SPECIMEN Ordering Facility: [facility] Address: [address] [place] [address] Performed By: #### 1 9123-9, 08765-0 #### [facility] CLIA [id number] [address] [place] [address] [place] AST [Catalytic activity/Vol] 33 U/L Normal 8-34 [facility] Comment on above: Order Comment: Speci men Type: BLOOD SPECIMEN Ordering Facility: [facility] Address: [address] [place] [address] Result Comment: Resu lts may be falsely depressed after the administration of Sulfasalazine and/or Sulfapyridine. Performed By: #### 1 9123-9, #### [facility] CLIA [id number] [address] [place] [address] [place] Bilirubin [Mass/Vol] 0.5 mg/dL Normal 0.2-1.0 [facility] Comment on above: Order Comment: Speci men Type: BLOOD SPECIMEN Ordering Facility: [facility] Address: [address] [place] [address] Performed By: #### 1 23-9, #### [facility] CLIA [id number] [address] [place] [address] [place] Calcium [Mass/Vol] 9.8 mg/dL Normal 8.5-10.5 [facility] Comment on above: Order Comment: Speci men Type: BLOOD SPECIMEN Ordering Facility: [facility] Address: [address] [place] [address] Performed By: #### 1 23-9, #### [facility] CLIA [id number] [address] [place] [address] [place] Chloride [Moles/Vol] 110 mmol/L High 98-107 [facility] Comment on above: Order Comment: Speci men Type: BLOOD SPECIMEN Ordering Facility: [facility] Address: [address] [place], [place] [address] Performed By: #### 1 9123-9, #### [facility] CLIA [id number] [address] [place] [address] [place] CO2 [Moles/Vol] 27 mmol/L Normal 21-32 [facility] Comment on above: Order Comment: Speci men Type: BLOOD SPECIMEN Ordering Facility: [facility] Address: [address] [place] [address] Performed By: #### 1 23-9, #### [facility] CLIA [id number] [address] [place], [place] [address] [place] Creatinine [Mass/Vol] 0.83 mg/dL Normal 0.50-1.40 [facility] Comment on above: Order Comment: Dale haas Type: BLOOD SPECIMEN Ordering Facility: [facility] Address: [address] [place] [address] Result Comment: Radha ents receiving either N-Acetylcysteine (NAC) or Metamizole prior to venipuncture, may have falsely depressed results. Performed By: #### 1 9123-9, 27973-4 #### [facility] CLIA [id number] [address] [place] [address] [place] Creatinine and Glomerular filtration rate.predicted panel (S/P/Bld) 119 mL/min/1.73m??? Normal >=60 [facility] Comment on above: Order Comment: Dale haas Type: BLOOD SPECIMEN Ordering Facility: [facility] Address: [address] [place] [address] Result Comment: May mated Glomerular Filtration Rate [...] actual GFR. Performed By: #### 1 9123-9, 79211-0 #### [facility] CLIA [id number] [address] [place] [address] [place] Glucose [Mass/Vol] 113 mg/dL High 70-100 [facility] Comment on above: Order Comment: Dale haas Type: BLOOD SPECIMEN Ordering Facility: [facility] Address: [address] [place] [address] Result Comment: The [place] Diabetes Association (ADA) provides guidance for cutoff [...] Standards of Medical Care in Diabetes 2016, [place] Diabetes Association. Diabetes Care. 2016.39(Suppl 1). Results may be falsely elevated after the administration of Sulfapyridine. Results may be falsely depressed after the administration of Sulfasalazine. Performed By: #### 1 9123-9, 52224-3 #### [facility] CLIA [id number] [address] [place] [address] [place] Potassium [Moles/Vol] 3.9 mmol/L Normal 3.5-5.1 [facility] Comment on above: Order Comment: Speci men Type: BLOOD SPECIMEN Ordering Facility: [facility] Address: [address] [place] [address] Performed By: #### 1 9123-9, 56247-9 #### [facility] CLIA [id number] [address] [place] [address] [place] Protein [Mass/Vol] 6.7 g/dL Normal 6.0-8.5 [facility] Comment on above: Order Comment: Speci men Type: BLOOD SPECIMEN Ordering Facility: [facility] Address: [address] [place] [address] Performed By: #### 1 23-9, 25406-6 #### [facility] CLIA [id number] [address] [place] [address] [place] Sodium [Moles/Vol] 142 mmol/L Normal 136-145 [facility] Comment on above: Order Comment: Speci men Type: BLOOD SPECIMEN Ordering Facility: [facility] Address: [address] [place] [address] Performed By: #### 1 9123-9, 40864-6 #### [facility] CLIA [id number] [address] [place] [address] [place] Urea nitrogen [Mass/Vol] 14 mg/dL Normal 7-26 [facility] Comment on above: Order Comment: Speci men Type: BLOOD SPECIMEN Ordering Facility: [facility] Address: [address] [place] [address] Performed By: #### 1 9123-9, 29229-6 #### [facility] CLIA [id number] [address] [place] [address] [place] ECG COMPLETEon 03-14-2024 ECG COMPLETE Ventricular Rate : 7 4 BPM Atrial Rate : 74 BPM P-R Interval : 166 ms QRS Duration : 96 ms Q-T Interval : 404 ms QTC Calculation(Bazett) : 448 ms Calculated P [place] : 75 degrees Calculated R [place] : 49 degrees Calculated T [place] : 67 degrees Normal sinus rhythm Normal ECG No previous ECGs available Confirmed by SARATH CORRALES MD ([id number]) on 03/15/2024 1:04:39 PM NAME : AMADO MARINELLI PID : [id number] : 1990 Gender : Male Race : ORD : [id number] Procedure Date : Mar 14 2024 10:49:37 Edit Date : Mar 15 2024 13:04:43 Diagnosis: Normal sinus rhythm Normal ECG No previous ECGs available Confirmed by SARATH CORRALES MD ([id number]) on 03/15/2024 1:04:39 PM Test Reason : HCS Location : 0 : ED EDH28 Overread By : SARATH CORRALES MD Edited By : SARATH CORRALES MD Referred By : , Acquired by : ED, [facility] ED PROV NOTEon 03-14-2024 ED PROV NOTE HNO ID: [id number] Author: ELISABET RETANA PA-C Service: ? Author Type: Physician Saw Operator Type: ED Provider Notes Filed: 03/14/2024 13:13 Note Text: ED Provider Note Patient Name: Amado Marinelli : 1990 SERVICE DATE: 03/14/24 History Patient presents with: Chest Pain: Was seen at [facility] Sunday and told to come here for cardiac work up HPI Amado Marinelli is a 33 year old male who presents to the ED due to intermittent chest pain x 1 week. Patient was seen at [facility] 3 days ago when he was [...] ADHD (attention deficit hyperactivity disorder) Bipolar disorder ([facility]) Depression [facility], history of suicide attempt Genital herpes 04/2013 Polysubstance abuse ([facility]) meth, heroin. Oversoe 07/2019 [facility] Tobacco use disorder PAST SURGICAL HISTORY Procedure [...] Final Result IMPRESSION: No acute radiographic abnormality. Train Control Electronic Technician: TRISTIAN Transcribe Date/Time: Mar 14 2024 1:00P Dictated [...] x 1 week. Patient was seen at [facility] 3 days ago when he was instructed to come the emergency department for cardiac (more content not included)... Normal [facility] HIGH SENSITIVITY TROPONIN Io n 03-14-2024 Tropinin I.cardiac panel High sensitivity method <2.5 Normal 0.0-54.0 [facility] Comment on above: Order Comment: Speci men Type: BLOOD SPECIMEN Ordering Facility: [facility] Address: [address] [place] [address] Performed By: #### H STROP #### [facility] CLIA [id number] [address] [place] [address] [place] Magnesium SerPl-mCncon 07-05 -2024 Magnesium [Mass/Vol] 1.9 mg/dL Normal 1.6-2.6 [facility] Comment on above: Order Comment: Speci men Type: BLOOD SPECIMEN Ordering Facility: [facility] Address: [address] [place] [address] Performed By: #### 1 9123-9, 47969-5 #### [facility] CLIA [id number] [address] [id number] [place] XR CHEST 2V [...] tissues: Unremarkable. IMPRESSION: No acute radiographic abnormality. Train Control Electronic Technician: TRISTIAN Transcribe Date/Time: Mar 14 2024 1:00P Dictated by : RUPERTO QUESADA MD This examination was interpreted and the report reviewed and electronically signed by: RUPERTO QUESADA MD on Mar 14 2024 1:01PM EST [id number] Normal [facility] CNOVon 03-11-2024 CNOV Office Visit ([facility] ) ----- AMADO MARINELLI ([id number]) 1990 M Date Time Provider Department 03/11/24 4:05 PM CELI KEANE [facility] During your visit today, we recorded the [...] ADHD (attention deficit hyperactivity disorder) Bipolar disorder ([facility]) Depression [facility], history of suicide attempt Genital herpes 04/2013 Polysubstance abuse ([facility]) meth, heroin. Oversoe 07/2019 [facility] Tobacco use disorder Current Outpatient Medications Medication [...] a ventricular rate of 64 bpm. Normal NE interval. No ST elevation or T wave [...] to what (more content not included)... Normal [facility] ECG COMPLETEon 03-11-2024 ECG COMPLETE Ventricular Rate : 6 4 BPM Atrial Rate : 64 BPM P-R Interval : 168 ms QRS Duration : 100 ms Q-T Interval : 432 ms QTC Calculation(Bazett) : 445 ms Calculated P [place] : 61 degrees Calculated R [place] : 11 degrees Calculated T [place] : 57 degrees Normal sinus rhythm Normal ECG No previous ECGs available Confirmed by SARATH CORRALES MD ([id number]) on 03/12/2024 1:23:27 AM NAME : AMADO MARINELLI PID : [id number] : 1990 Gender : Male Race : ORD : [id number] Procedure Date : Mar 11 2024 16:12:08 Edit Date : Mar 12 2024 01:23:29 Diagnosis: Normal sinus rhythm Normal ECG No previous ECGs available Confirmed by SARATH CORRALES MD ([id number]) on 03/12/2024 1:23:27 AM Test Reason : R07.89 Chest tightness Location : 78 : [facility] Overread By : SARATH CORRALES MD Edited By : SARATH CORRALES MD Referred By : CELI KEANE Acquired by : MARILYNN [facility] Absolute lymphocyte countOrd ered By: Cheo Short on 10-24-2023 Lymphocytes Auto (Unsp spec) [#/Vol] 2.12 10*3/uL 0.83-4.51 [facility] Automated lymphocyte count a s percentage of total leukocytesOrdered By: Cheo Short on 10-24-2023 Lymphocytes/100 WBC Auto (Unsp spec) 24.8 % 19-41 [facility] Basophil percentageOrdered B y: Cheo Short on 10-24-2023 Basophils/100 WBC (Bld) 1.1 % 0-1 [facility] Chloride [Moles/Vol] 102 mmol/L 98-107 [facility] Eosinophils/100 WBC (Bld) 2.0 % 0-5 [facility] Glucose [Mass/Vol] 132 mg/dL 74-106 [facility] Comment on above: Fasting Glucose resu lt greater than or equal to 126 mg/dL suggests DIABETES MELLITUS per A.D.A. criteria. Hemoglobin (Bld) [Mass/Vol] 16.5 g/dL 13.0-16.5 [facility] Monocytes/100 WBC (Bld) 10.3 % 0-10 [facility] Neutrophils (Bld) [#/Vol] 5.2 10*3/uL 2.0-7.7 [facility] Neutrophils/100 WBC (Bld) 61.1 % 47-70 [facility] Potassium [Moles/Vol] 4.1 mmol/L 3.5-5.1 [facility] Sodium [Moles/Vol] 137 mmol/L 136-145 [facility] WBC (Bld) [#/Vol] 8.6 10*3/uL 4.4-11.0 [facility] Determination of erythrocyte mean corpuscular volume (MCV)Ordered By: Cheo Short on 10-24-2023 MCV (RBC) [Entitic vol] 84.5 fL 80-94 [facility] Erythrocyte distribution wid th ratioOrdered By: Lelo Deja on 10-24-2023 Erythrocyte distribution width (RBC) [Ratio] 12.9 % 11.6-14.6 [facility] Erythrocyte distribution wid th standard deviationOrdered By: Lelo Deja on 10-24-2023 Erythrocyte distribution width (RBC) [Entitic vol] 39.7 fL 35.1-43.9 [facility] Hematocrit Auto (Bld) [Volum e fraction]Ordered By: [place] Deja on 10-24-2023 Hematocrit (Bld) [Volume fraction] 50.0 % 40-54 [facility] Immature granulocytes/100 WB C Auto (Bld)[facility] on 10-24-2023 Immature granulocytes/100 WBC (Bld) 0.700 % 0.0-0.9 [facility] Comment on above: IG% - Immature Granu locytes (promyelocytes, myelocytes and metamyelocytes) > 1% indicates that a LEFT SHIFT is Present. Laboratory - Chemistry and C hemistry - challengeOrdered By: Cheo Short on 10-24-2023 CO2 [Moles/Vol] 31.0 mmol/L 21.0-32.0 [facility] Urea nitrogen/Creatinine [Mass ratio] 17.2 mg/mg 10-20 [facility] - Drug toxicology Ordered By: Cheo Short on 10-24-2023 Amphetamines Ql (U) Positive <1000 ng/mL [facility] Benzodiazepines Ql (U) Negative < 200 ng/mL [facility] Cannabinoids Screen Ql (U) Positive < 50 ng/mL [facility] Cocaine Ql (U) Negative < 300 ng/mL [facility] Opiates Ql (U) Negative < 300 ng/mL [facility] - Hematology and Cell countsOrdered By: Cheo Short on 10-24-2023 MCH (RBC) [Entitic mass] 27.9 pg 27.0-32.0 [facility] MCHC (RBC) [Mass/Vol] 33.0 g/dL 32-36 [facility] Nucleated RBC/100 WBC (Bld) [Ratio] 0 % 0-5 [facility] Platelet mean volume (Bld) [Entitic vol] 9.9 fL 6.2-12.0 [facility] Platelets (Bld) [#/Vol] 254 10*3/uL 150-450 [facility] No Panel InformationOrdered By: Cheo Short on 10-24-2023 MDMA (Ecstasy) Screen Positive < 500 ng/mL [facility] Urine Barbiturates Screen Negative < 200 ng/mL [facility] Urine Drug Screen Comment [facility] Comment on above: CONFIRMATORY TESTING FOR [...] Urine Methadone Screen Negative < 300 ng/mL [facility] Estimated Creatinine Clearance Calc 100.34 ml/min [facility] Estimated GFR (MDRD) Amer 93 mL/min >60 [facility] Comment on above: GFR Calc Estimated GFR (MDRD) Non-Af Amer 77 mL/min >60 [facility] Comment on above: Non- GFR Calc Ethyl Alcohol Level < 3.0 mg/dL [facility] Comment on above: The serum:whole bloo d ethanol ratio is approximately 1.14and varies slightly with hematocrit. Medical Alcohol reference interval and critical value innon-tolerant individuals; 50 - 100 Impairment 100 Intoxication 100 - 250 Severe Poisoning 250 - 400 Deep/possible fatal coma RBC Auto (Bld) [#/Vol]Ordere d By: Cheo Short on 10-24-2023 RBC (Bld) [#/Vol] 5.92 10*6/uL 4.6-6.2 [facility] Serum or plasma calcium jeff urement (mass/volume)Ordered By: Cheo Short on 10-24-2023 Calcium [Mass/Vol] 9.6 mg/dL 8.5-10.1 [facility] Serum or plasma creatinine m easurement (mass/volume)Ordered By: Cheo Short on 10-24-2023 Creatinine [Mass/Vol] 1.16 mg/dL 0.70-1.30 [facility] Comment on above: The validity of the calculated GFR & GFRAA in patients over 70 years has not been determined. Clinical correlation is essential. Serum or plasma urea nitroge n measurement (mass/volume)Ordered By: Cheo Short on 10-24-2023 Urea nitrogen [Mass/Vol] 20 mg/dL 7-18 [facility] Thin prep Papanicolaou smear with manual screeningOrdered By: Cheo Short on 10-24-2023 Thin prep Papanicolaou smear with manual screening 4 5-15 [facility] Urine phencyclidine (PCP) de tectionOrdered By: Cheo Short on 10-24-2023 Phencyclidine Ql (U) Negative < 25 ng/mL [facility] XR HAND MINIMUM 3 VIEWS LEFT [...] 10/09/2023 11:35:44 AM Ordering Provider: RUBEN JOVEL [facility] ([place]) XR HAND MINIMUM 3 VIEWS LEFT ORIGINAL [...] 10/09/2023 11:30:43 AM Ordering Provider: RUBEN JOVEL [facility]) Absolute lymphocyte countOrd ered By: Juancho Leydi on 05-26-2023 Lymphocytes Auto (Unsp spec) [#/Vol] 2.55 10*3/uL 0.83-4.51 [facility] Basophil percentageOrdered B y: Juancho Leydi on 05-26-2023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 Autodiffon 06-10 Abs Baso Cnt 0.1 10*3/uL Normal 0.0-0.2 [facility] Comment on above: Performed By: #### E SR, BMP3, HEMDF, CRP2 #### [facility] [address] [place] [address] Abs Neutrophile Cnt 8.6 10*3/uL High 1.8-7.0 [facility] Comment on above: Performed By: #### E SR, BMP3, HEMDF, CRP2 #### [facility] [address] [place] [address] Basophils/100 WBC (Bld) 0.5 % Normal 0.0-2.0 [facility] Comment on above: Performed By: #### E SR, BMP3, HEMDF, CRP2 #### [facility] [address] [place] [address] Eosinophils (Bld) [#/Vol] 0.1 10*3/uL Normal 0.0-0.5 [facility] Comment on above: Performed By: #### E SR, BMP3, HEMDF, CRP2 #### [facility] [address] [place] [address] Eosinophils/100 WBC (Bld) 1.1 % Normal 1.0-6.0 [facility] Comment on above: Performed By: #### E SR, BMP3, HEMDF, CRP2 #### [facility] [address] [place] [address] Erythrocyte distribution width (RBC) [Ratio] 14.2 % Normal 11.5-14.5 [facility] Comment on above: Performed By: #### E SR, BMP3, HEMDF, CRP2 #### [facility] [address] [place] [address] Granulocytes/100 WBC (Bld) 71.5 % Normal 40.0-80.0 [facility] Comment on above: Performed By: #### E SR, BMP3, HEMDF, CRP2 #### [facility] [address] [place] [address] Hematocrit (Bld) [Volume fraction] 43.2 % Normal 40.0-52.0 [facility] Comment on above: Performed By: #### E SR, BMP3, HEMDF, CRP2 #### [facility] [address] [place] [address] Hemoglobin (Bld) [Mass/Vol] 15.1 g/dL Normal 13.0-18.0 [facility] Comment on above: Performed By: #### E SR, BMP3, HEMDF, CRP2 #### [facility] [address] [place] [address] Lymphocytes (Bld) [#/Vol] 2.1 10*3/uL Normal 1.0-4.3 [facility] Comment on above: Performed By: #### E SR, BMP3, HEMDF, CRP2 #### [facility] [address] [place] [address] Lymphocytes/100 WBC (Bld) 17.1 % Low 20.0-40.0 [facility] Comment on above: Performed By: #### E SR, BMP3, HEMDF, CRP2 #### [facility] [address] [place] [address] MCH (RBC) [Entitic mass] 28.0 pg Normal 26.0-34.0 [facility] Comment on above: Performed By: #### E SR, BMP3, HEMDF, CRP2 #### [facility] [address] [place] [address] MCHC (RBC) [Mass/Vol] 34.9 % Normal 32.0-36.0 [facility] Comment on above: Performed By: #### E SR, BMP3, HEMDF, CRP2 #### [facility] [address] [place] [address] MCV (RBC) [Entitic vol] 80.2 fL Normal 80.0-98.0 [facility] Comment on above: Performed By: #### E SR, BMP3, HEMDF, CRP2 #### [facility] [address] [place] [address] Monocytes (Bld) [#/Vol] 1.2 10*3/uL High 0.0-0.8 [facility] Comment on above: Performed By: #### E SR, BMP3, HEMDF, CRP2 #### [facility] [address] [place] [address] Monocytes/100 WBC (Bld) 9.8 % Normal 2.0-10.0 [facility] Comment on above: Performed By: #### E SR, BMP3, HEMDF, CRP2 #### [facility] [address] [place] [address] Platelet mean volume (Bld) [Entitic vol] 7.1 fL Low 7.4-10.4 [facility] Comment on above: Performed By: #### E SR, BMP3, HEMDF, CRP2 #### [facility] [address] [place] [address] Platelets (Bld) [#/Vol] 429 10*3/uL Normal 140-440 [facility] Comment on above: Performed By: #### E SR, BMP3, HEMDF, CRP2 #### [facility] [address] [place] [address] RBC (Bld) [#/Vol] 5.39 10*6/uL Normal 4.40-5.90 [facility] Comment on above: Performed By: #### E SR, BMP3, HEMDF, CRP2 #### [facility] [address] [place] [address] WBC (Bld) [#/Vol] 12.0 10*3/uL High 3.6-10.7 [facility] Comment on above: Performed By: #### E SR, BMP3, HEMDF, CRP2 #### [facility] [address] [place] [address] Otheron 06-10-2020 Interpretation and review of laboratory results Abnormal [facility] [place] [place] Test Performed by [facility], [address] , [address] [facility]- [place], [place] Sed Rateon 06-10-2020 Sed Rate 44 mm/h High 0-10 [facility] Comment on above: Performed By: #### E SR, BMP3, HEMDF, CRP2 #### [facility] [address] [place] [address] Sedimentation Rateon 020 Interpretation and review of laboratory results Abnormal [facility] [place] Sed Rate 44 mm/h High 0 - 10 mm/h [facility]- [place] Test Performed by [facility], [address] , [address] [facility]- [place], [place] CR Hand Complete 3+ Views Ri [facility] 06-08-2020 CR Hand Complete 3+ Views Right Patient Name: AMADO MARINELLI Diagnostic Radiology Exam Date/Time 06/08/2020 19:23:50 EDT Exam CR Hand Complete 3+ Views Right Ordering Physician MD SOFIA, [place] Accession Number [id number] CPT4 Codes 05962 () Reason For Exam hand injury Report [...] Transcribed Date and Time: 06/08/2020 8:07 Normal [facility] XR HAND RIGHT (MIN 3 VIEWS)o n 06-08-2020 Patient Name: AMADO MENA ---Diagnostic Radiology--- Exam Date/Time 06/08/2020 19:23:50 EDT Exam CR Hand Complete 3+ Views Right Ordering Physician MD SOFIA, [place] Accession Number [id number] CPT4 Codes 09681 () Reason For Exam hand injury Report [...] R Transcribed Date and Time: 06/08/2020 8:07 [facility] [place], [place] Tom, [facility] Incoming Radiology Results From [facility] - 06/08/2020 8:07 PM EDT Patient Name: AMADO MARINELLI ---Diagnostic Radiology--- Exam Date/Time 06/08/2020 19:23:50 EDT Exam CR Hand Complete 3+ Views Right Ordering Physician MD SOFIA, [place] Accession Number [id number] CPT4 Codes 86484 () Reason For Exam hand injury Report [...] R Transcribed Date and Time: 06/08/2020 8:07 [place] WRIST INJURY 4V PA/LAT/OBL/S CAPH LEFTon 04-11-2018 WRIST INJURY 4V PA/LAT/OBL/SCAPH LEFT Performed at [facility] APPROVED BY: Felipe Chakraborty MD LEFT WRIST, [...] findings, close follow-up radiographs are recommended. Normal [facility] ABO/Rh Confirmationon 2017 ABO group Nom (Bld) A Normal [facility] Comment on above: Performed By: #### A DENISE #### [place] [address] RH Type Positive Normal [facility] Comment on above: Performed By: #### A DENISE #### [place] [address] Activated PTTon 02-18-2018 aPTT Coag time (Bld) 23.3 s Normal 22.0-34.0 [facility] Comment on above: Performed By: #### A PTT #### [place] [address] Basic Panelon 02-18-2018 Creatinine mass conc 0.99 mg/dL Normal 0.67-1.17 [facility] Comment on above: Performed By: #### P 8 #### [facility] [address] [place] [address] Anion gap molar conc 12 mmol/L Normal 8-16 [facility] Comment on above: Performed By: #### P 8 #### [facility] [address] [place] [address] CO2 molar conc 25 mmol/L Normal 21-32 [facility] Comment on above: Performed By: #### P 8 #### [facility] [address] [place], [place] [address] Glucose mass conc 114 mg/dL High 70-99 [facility] Comment on above: Performed By: #### P 8 #### [facility] [address] [place], [place] [address] Urea nitrogen mass conc 13 mg/dL Normal 7-18 [facility] Comment on above: Performed By: #### P 8 #### [facility] [address] [place] [address] Calcium mass conc 9.3 mg/dL Normal 8.5-10.1 [facility] Comment on above: Performed By: #### P 8 #### [facility] [address] [place], [place] [address] Chloride molar conc 106 mmol/L Normal 98-107 [facility] Comment on above: Performed By: #### P 8 #### [facility] [address] [place] [address] Potassium molar conc 4.0 mmol/L Normal 3.5-5.1 [facility] Comment on above: Performed By: #### P 8 #### [facility] [address] [place] [address] Sodium molar conc 139 mmol/L Normal 136-145 [facility] Comment on above: Performed By: #### P 8 #### [facility] [address] [place] [address] HAND 3V PA/LAT/OBL LEFTon HAND 3V PA/LAT/OBL LEFT Performed at [facility] APPROVED BY: Jes Weems MD EXAM TITLE: HAND 3V PA/LAT/OBL LEFT DATE: 02/18/2018 14:36 INDICATION: Multiple left hand lacerations with glass COMPARISON: None. FINDINGS: Positioning is suboptimal. Within these limitations, no fractures or dislocations are identified. Joint spaces are maintained. There are no radiopaque foreign bodies identified within the soft tissues. IMPRESSION: Within the limits discussed, no acute osseous abnormality. Normal [facility] Hemogram/Diffon 02-18-2018 Abs Immature Grans 0.07 thou/cmm High 0.00-0.05 [facility] Comment on above: Performed By: #### C BCD1 #### [place] [address] Abs. Baso 0.06 thou/cmm Normal 0.01-0.08 [facility] Comment on above: Performed By: #### C BCD1 #### [place] [address] Abs. [place] 0.74 thou/cmm Normal 0.30-0.82 [facility] Comment on above: Performed By: #### C BCD1 #### [place] [address] Abs. Neut (ANC) 3.29 thou/cmm Normal 1.78-5.38 [facility] Comment on above: Performed By: #### C BCD1 #### [place] [address] Basophils/100 WBC (Bld) 0.9 % Normal [facility] Comment on above: Performed By: #### C BCD1 #### [facility] [address] [place] [address] Eosinophils #/vol (Bld) 0.20 thou/cmm Normal 0.04-0.54 [facility] Comment on above: Performed By: #### C BCD1 #### [place] [address] Eosinophils/100 WBC (Bld) 3.1 % Normal [facility] Comment on above: Performed By: #### C BCD1 #### [facility] [address] [place] [address] Erythrocyte distribution width Ratio (RBC) 13.5 % Normal 11.6-14.4 [facility] Comment on above: Performed By: #### C BCD1 #### [facility] [address] [place] [address] Hematocrit Volume Fraction (Bld) 46.1 % Normal 40.1-51.0 [facility] Comment on above: Performed By: #### C BCD1 #### [facility] [address] [place] [address] Hemoglobin mass conc (Bld) 15.3 g/dL Normal 13.7-17.5 [facility] Comment on above: Performed By: #### C BCD1 #### [facility] [address] [place] [address] Immature Grans 1.10 % Normal [facility] Comment on above: Performed By: #### C BCD1 #### [facility] [address] [place] [address] Lymphocytes #/vol (Bld) 2.02 thou/cmm Normal 0.84-2.85 [facility] Comment on above: Performed By: #### C BCD1 #### [facility] [address] [place] [address] Lymphocytes/100 WBC (Bld) 31.7 % Normal [facility] Comment on above: Performed By: #### C BCD1 #### [facility] [address] [place] [address] MCH Entitic mass (RBC) 28.2 pg Normal 25.7-32.2 [facility] Comment on above: Performed By: #### C BCD1 #### [facility] [address] [place] [address] MCHC mass conc (RBC) 33.2 % Normal 32.3-36.5 [facility] Comment on above: Performed By: #### C BCD1 #### [facility] [address] [place] [address] MCV Entitic volume (RBC) 84.9 fL Normal 83.2-95.6 [facility] Comment on above: Performed By: #### C BCD1 #### [facility] [address] [place], [place] [address] Monocytes/100 WBC (Bld) 11.6 % Normal A [facility] Comment on above: Performed By: #### C BCD1 #### [facility] [address] [place], [place] [address] Platelet mean volume Entitic volume (Bld) 9.8 fL Normal 8.7-12.0 [facility] Comment on above: Performed By: #### C BCD1 #### [facility] [address] [place], [place] [address] Platelets #/vol (Bld) 214 thou/cmm Normal 141-[address] [facility] Comment on above: Performed By: #### C BCD1 #### [facility] [address] [place], [place] [address] RBC #/vol (Bld) 5.43 mil/cmm Normal 4.63-6.08 [facility] Comment on above: Performed By: #### C BCD1 #### [facility] [address] [place], [place] [address] RDW SD 42.0 fl Normal 36.1-45.8 [facility] Comment on above: Performed By: #### C BCD1 #### [facility] [address] [place] [address] Seg Neutrophil 51.6 % Normal [facility] Comment on above: Performed By: #### C BCD1 #### [facility] [address] [place] [address] WBC #/vol (Bld) 6.37 thou/cmm Normal 4.23-9.07 [facility] Comment on above: Performed By: #### C BCD1 #### [facility] [address] [place] [address] MDRD GFRon 02-18-2018 GFR/1.73 sq M predicted among non-blacks MDRD vol rate/area (S/P/Bld) mL/min/{1.73_m2} Normal >60mL/min/ 1.73m2 [facility] Comment on above: Result Comment: If t he patient is , multiply the result by 1.210. Performed By: #### G FR #### [place] [address] Protimeon 02-18-2018 INR Coag RelTime (PPP) 0.88 {INR} Normal [facility] Comment on above: Result Comment: Brent dard Therapy 2.0-3.0 High Dose 2.5-3.5 Performed By: #### P T #### [place] [address] Prothrombin time (PT) Coag time (PPP) 9.6 s Normal 9.3-11.9 [facility] Comment on above: Performed By: #### P T #### [place] [address] Type and Screenon 02-18-2018 ABO group Nom (Bld) A Normal [facility] Comment on above: Performed By: #### T &S #### [place] [address] Comment See Below Normal [facility] Comment on above: Result Comment: Scre en &/or Xmatch expires in 3 days at 12 midnight. Redraw patient at that time. Performed By: #### T &S #### [place] [address] RH Type Positive Normal [facility] Comment on above: Performed By: #### T &S #### [place] [address] Vital Signs Date Time Vital Sign Value Performing Clinician Facility 04-21-2025 01: Body temperature 98.4 [degF] Jennifer OTTOC Work Phone: [facility] 04-21-2025 01:040 Diastolic blood pressure 91 mm[Hg] Jennifer OTTOC Work Phone: [facility] 04-21-2025 01:040 Heart rate 76 /min Jennifer Mathur NP-C Work Phone: [facility] 04-21-2025 01:22-0400 Respiratory rate 16 /min Jennifer Mathur ONLINE PROJECT MANAGER-C Work Phone: [facility] 04-21-2025 01:22-0400 SaO2% (BldA) [Mass fraction] 99 % Jennifer Kevan ONLINE PROJECT MANAGER-C Work Phone: [facility] 04-21-2025 01:22-0400 Systolic blood pressure 117 mm[Hg] Jennifer Mathur ONLINE PROJECT MANAGER-C Work Phone: [facility] 04-21-2025 00:02-0400 Body height 182.88 cm Jennifersukh Mathur ONLINE PROJECT MANAGER-C Work Phone: [phone] [place] [address] 04-21-2025 00:02-0400 Body mass index (BMI) [Ratio] 25.3 kg/m2 Jennifersukh Mathur ONLINE PROJECT MANAGER-C Work Phone: [facility] 04-21-2025 00:02-0400 Body weight 84.8 kg Jennifer Mathur ONLINE PROJECT MANAGER-C Work Phone: [facility] 04-14-2025 22:05-0400 Diastolic blood pressure 97 mm[Hg] Kady Sahu MD Work Phone: [facility] 04-14-2025 22:05-0400 Heart rate 67 /min Kady Sahu MD Work Phone: [facility] 04-14-2025 22:05-0400 Respiratory rate 18 /min Kady Sahu MD Work Phone: [facility] 04-14-2025 22:05-0400 SaO2% (BldA) [Mass fraction] 97 % Kady Sahu MD Work Phone: [facility] 04-14-2025 22:05-0400 Systolic blood pressure 142 mm[Hg] Kady Sahu MD Work Phone: [facility] 04-14-2025 19:41-0400 Body height 182.9 cm Kady Sahu MD Work Phone: [facility] 04-14-2025 19:41-0400 Body mass index (BMI) [Ratio] 26.45 kg/m2 Kady Sahu MD Work Phone: [facility] 04-14-2025 19:41-0400 Body temperature 97.5 [degF] Kady Sahu MD Work Phone: [facility] 04-14-2025 19:41-0400 Body weight 88.45 kg Kady Sahu MD Work Phone: [facility] 03-20-2025 11:34-0400 Diastolic blood pressure 93 mm[Hg] Wagner Cifuentes DO Work Phone: [facility] 03-20-2025 11:34-0400 Heart rate 59 /min Wagner Cifuentes DO Work Phone: [facility] 03-20-2025 11:34-0400 Respiratory rate 18 /min Wagner Cifuentes DO Work Phone: [facility] 03-20-2025 11:34-0400 SaO2% (BldA) [Mass fraction] 97 % Wagner Cifuentes DO Work Phone: [facility] 03-20-2025 11:34-0400 Systolic blood pressure 132 mm[Hg] Wagner Cifuentes DO Work Phone: [facility] 03-20-2025 08:52-0400 Body height 182.9 cm Wagner Cifuentes DO Work Phone: [facility] 03-20-2025 08:52-0400 Body mass index (BMI) [Ratio] 29.43 kg/m2 Wagner Cifuentes DO Work Phone: [facility] 03-20-2025 08:52-0400 Body temperature 98.49 [degF] Wagner Cifuentes DO Work Phone: [facility] 03-20-2025 08:52-0400 Body weight 98.43 kg Wagner Jeannine DO Work Phone: [facility] 03-05-2025 11:26-0400 Body height 182.9 cm Harriet Rivera MD Work Phone: [facility] 03-05-2025 11:26-0400 Body mass index (BMI) [Ratio] 27.07 kg/m2 Harriet Rivera MD Work Phone: [facility] 03-05-2025 11:26-0400 Body weight 90.54 kg Harriet Rivera MD Work Phone: [facility] 03-05-2025 11:26-0400 Diastolic blood pressure 62 mm[Hg] Harriet Rivera MD Work Phone: [facility] 03-05-2025 11:26-0400 Heart rate 77 /min Harriet Rivera MD Work Phone: [facility] 03-05-2025 11:26-0400 Systolic blood pressure 122 mm[Hg] Harriet Rivera MD Work Phone: [facility] 02-09-2025 16:24-0400 Body height 182.88 cm Jennifer Mathur ONLINE PROJECT MANAGER-C Work Phone: [facility] 02-09-2025 16:24-0400 Body temperature 98.1 [degF] Jennifer Mathur ONLINE PROJECT MANAGER-C Work Phone: [facility] 02-09-2025 16:24-0400 Diastolic blood pressure 91 mm[Hg] Jennifer Mathur ONLINE PROJECT MANAGER-C Work Phone: [facility] 02-09-2025 16:24-0400 Heart rate 76 /min Jennifer Mathur ONLINE PROJECT MANAGER-C Work Phone: [facility] 02-09-2025 16:24-0400 Respiratory rate 19 /min Jennifer Mathur ONLINE PROJECT MANAGER-C Work Phone: [facility] 02-09-2025 16:24-0400 SaO2% (BldA) [Mass fraction] 98 % Jennifer Mathur ONLINE PROJECT MANAGER-C Work Phone: [facility] 02-09-2025 16:24-0400 Systolic blood pressure 132 mm[Hg] Jennifer Mathur ONLINE PROJECT MANAGER-C Work Phone: [facility] 01-23-2025 11:45-0400 Diastolic blood pressure 91 mm[Hg] Harriet Rivera MD Work Phone: [facility] 01-23-2025 11:45-0400 Heart rate 58 /min Harriet Rivera MD Work Phone: [facility] 01-23-2025 11:45-0400 Respiratory rate 14 /min Harriet Rivera MD Work Phone: [facility] 01-23-2025 11:45-0400 SaO2% (BldA) [Mass fraction] 97 % Harriet Rivera MD Work Phone: [facility] 01-23-2025 11:45-0400 Systolic blood pressure 119 mm[Hg] Harriet Rivera MD Work Phone: [facility] 01-23-2025 11:18-0400 Body temperature 97.11 [degF] Harriet Rivera MD Work Phone: [facility] 01-23-2025 07:56-0400 Body height 182.9 cm Harriet Rivera MD Work Phone: [facility] 01-23-2025 07:56-0400 Body mass index (BMI) [Ratio] 29.43 kg/m2 Harriet Rivera MD Work Phone: [facility] 01-23-2025 07:56-0400 Body weight 98.43 kg Harriet Rivera MD Work Phone: [facility] 12-28-2024 01:00-0400 Heart rate 62 /min Jennifer Mathur ONLINE PROJECT MANAGER-C Work Phone: [facility] 12-28-2024 01:00-0400 Respiratory rate 10 /min Jennifer Mathur NP-C Work Phone: [facility] 12-28-2024 01:00-0400 SaO2% (BldA) [Mass fraction] 99 % Jennifer Mathur ONLINE PROJECT MANAGER-C Work Phone: [facility] 12-28-2024 00:45-0400 Diastolic blood pressure 102 mm[Hg] Jennifersukh Mathur ONLINE PROJECT MANAGER-C Work Phone: [facility] 12-28-2024 00:45-0400 Systolic blood pressure 128 mm[Hg] Jennifersukh Mathur ONLINE PROJECT MANAGER-C Work Phone: [facility] 12-27-2024 21:45-0400 Body height 182.88 cm Jennifersukh Mathur ONLINE PROJECT MANAGER-C Work Phone: [facility] 12-27-2024 21:45-0400 Body mass index (BMI) [Ratio] 28 kg/m2 Jennifer Kevan ONLINE PROJECT MANAGER-C Work Phone: [facility] 12-27-2024 21:45-0400 Body temperature 98.3 [degF] Jennifer Kevan ONLINE PROJECT MANAGER-C Work Phone: [facility] 12-27-2024 21:45-0400 Body weight 93.89 kg Jennifer Kevan ONLINE PROJECT MANAGER-C Work Phone: [facility] 10-23-2024 14:20-0500 Body height 182.9 cm Harriet Rivera MD Work Phone: [facility] 10-23-2024 14:20-0500 Body mass index (BMI) [Ratio] 28.48 kg/m2 Harriet Rivera MD Work Phone: [facility] 10-23-2024 14:20-0500 Body weight 95.25 kg Harriet Rivera MD Work Phone: [facility] 10-23-2024 14:20-0500 Diastolic blood pressure 83 mm[Hg] Harriet Rivera MD Work Phone: [facility] 10-23-2024 14:20-0500 Heart rate 88 /min Harriet Rivera MD Work Phone: [facility] 10-23-2024 14:20-0500 SaO2% (BldA) [Mass fraction] 98 % Harriet Rivera MD Work Phone: [facility] 10-23-2024 14:20-0500 Systolic blood pressure 134 mm[Hg] Harriet Rivera MD Work Phone: [facility] 10-13-2024 09:31-0500 Body height 182.9 cm GARRETT CANO MD [facility] 10-13-2024 09:31-0500 Body temperature 97.7 [degF] GARRETT CANO MD [facility] 10-13-2024 09:31-0500 Body weight 97.7 kg GARRETT CANO MD [facility] 10-13-2024 09:31-0500 Diastolic Blood Pressure Non-Invasive 84 mm[Hg] GARRETT CANO MD [facility] 10-13-2024 09:31-0500 Heart rate 72 /min GARRETT CANO MD [facility] 10-13-2024 09:31-0500 Respiratory rate 18 /min GARRETT CANO MD [facility] 10-13-2024 09:31-0500 Systolic Blood Pressure Non-Invasive 124 mm[Hg] GARRETT CANO MD [facility] 09-17-2024 12:48-0500 Body temperature 97.1 [degF] Jennifer Mathur ONLINE PROJECT MANAGER-C Work Phone: [facility] 09-17-2024 12:48-0500 Diastolic blood pressure 89 mm[Hg] Jennifer Mathur ONLINE PROJECT MANAGER-C Work Phone: [facility] 09-17-2024 12:48-0500 Heart rate 82 /min Jennifer Mathur NP-C Work Phone: [facility] 09-17-2024 12:48-0500 Respiratory rate 16 /min Jennifer Mathur ONLINE PROJECT MANAGER-C Work Phone: 5(451)383-510015 [place] [address] 09-17-2024 12:48-0500 SaO2% (BldA) [Mass fraction] 98 % Jennifer Mathur ONLINE PROJECT MANAGER-C Work Phone: 6(661)[phone] [place] [address] 09-17-2024 12:48-0500 Systolic blood pressure 156 mm[Hg] Jennifer Mathur ONLINE PROJECT MANAGER-C Work Phone: 1(162)[phone] [place] [address] 09-17-2024 11:03-0500 Body mass index (BMI) [Ratio] 30.1 kg/m2 Jenniferboone Mathur ONLINE PROJECT MANAGER-C Work Phone: 2(853)[phone] [place] [address] 09-17-2024 11:03-0500 Body weight 100.65 kg Jennifer Mathur ONLINE PROJECT MANAGER-C Work Phone: 6(601)[phone] [place] [address] 09-15-2024 11:51-0500 Body temperature 98 [degF] Jennifer Mathur ONLINE PROJECT MANAGER-C Work Phone: 4(630)[phone] [place] [address] 09-15-2024 11:51-0500 Diastolic blood pressure 78 mm[Hg] eJnnifer Mathur ONLINE PROJECT MANAGER-C Work Phone: 4(940)[phone] [place] [address] 09-15-2024 11:51-0500 Heart rate 85 /min Jennifer Mathur ONLINE PROJECT MANAGER-C Work Phone: 7(306)830-970715 [place] [address] 09-15-2024 11:51-0500 Respiratory rate 18 /min Jennifer Mathur ONLINE PROJECT MANAGER-C Work Phone: 6(320)[phone] [place] [address] 09-15-2024 11:51-0500 SaO2% (BldA) [Mass fraction] 97 % Jennifer Mathur ONLINE PROJECT MANAGER-C Work Phone: 0(389)[phone] [place] [address] 09-15-2024 11:51-0500 Systolic blood pressure 120 mm[Hg] Jennifer Mathur ONLINE PROJECT MANAGER-C Work Phone: 4(492)574-618315 [place] [address] 09-15-2024 09:43-0500 Inhaled oxygen flow rate 6 L/min Jennifer Mathur ONLINE PROJECT MANAGER-C Work Phone: 7(417)[phone] [place] [address] 09-15-2024 06:29-0500 Body mass index (BMI) [Ratio] 29.5 kg/m2 Jennifer Mathur ONLINE PROJECT MANAGER-C Work Phone: [facility] 09-15-2024 06:29-0500 Body weight 98.6 kg Jennifer Kevan ONLINE PROJECT MANAGER-C Work Phone: [facility] 07-17-2024 18:14-0500 Body mass index (BMI) [Ratio] 29.3 kg/m2 Alfred Mckeon RIGGING WORKER.GAS APPLIANCE ADJUSTER Work Phone: [facility] 07-17-2024 18:14-0500 Body temperature 98.71 [degF] Alfred Mckeon RIGGING WORKER.GAS APPLIANCE ADJUSTER Work Phone: [facility] 07-17-2024 18:14-0500 Body weight 98 kg Alfred Mike RIGGING WORKER.GAS APPLIANCE ADJUSTER Work Phone: [facility] 07-17-2024 18:14-0500 Diastolic blood pressure 84 mm[Hg] Alfred Mckeon RIGGING WORKER.GAS APPLIANCE ADJUSTER Work Phone: [facility] 07-17-2024 18:14-0500 Heart rate 79 /min Alfred Mckeon RIGGING WORKER.GAS APPLIANCE ADJUSTER Work Phone: [facility] 07-17-2024 18:14-0500 Respiratory rate 20 /min Alfred Mike RIGGING WORKER.GAS APPLIANCE ADJUSTER Work Phone: [facility] 07-17-2024 18:14-0500 SaO2% (BldA) [Mass fraction] 98 % Alfred Mckeon RIGGING WORKER.GAS APPLIANCE ADJUSTER Work Phone: [facility] 07-17-2024 18:14-0500 Systolic blood pressure 123 mm[Hg] Alfred Mckeon RIGGING WORKER.GAS APPLIANCE ADJUSTER Work Phone: [facility] 03-11-2024 16:16-0400 Body mass index (BMI) [Ratio] 28.16 kg/m2 Celi Keane PA-C Work Phone: [facility] 03-11-2024 16:16-0400 Body temperature 98.2 [degF] Celi Keane PA-C Work Phone: [facility] 03-11-2024 16:16-0400 Body weight 90.72 kg Celi Keane PA-C Work Phone: [facility] 03-11-2024 16:16-0400 Diastolic blood pressure 83 mm[Hg] Celi Keane PA-C Work Phone: [facility] 03-11-2024 16:16-0400 Heart rate 70 /min Celi Earlkins PA-C Work Phone: [facility] 03-11-2024 16:16-0400 Respiratory rate 18 /min Celi Earlkins PA-C Work Phone: [facility] 03-11-2024 16:16-0400 SaO2% (BldA) [Mass fraction] 96 % Celi Keane PA-C Work Phone: [facility] 03-11-2024 16:16-0400 Systolic blood pressure 125 mm[Hg] Celi Earlkins PA-C Work Phone: [facility] 10-25-2023 06:51-0500 Body temperature 98 [degF] [facility] 10-25-2023 06:51-0500 Diastolic blood pressure 89 mm[Hg] [facility] 10-25-2023 06:51-0500 Heart rate 89 /min [facility] 10-25-2023 06:51-0500 Respiratory rate 18 /min [facility] 10-25-2023 06:51-0500 SaO2% (BldA) [Mass fraction] 97 % [facility] 10-25-2023 06:51-0500 Systolic blood pressure 136 mm[Hg] [facility] 10-24-2023 13:32-0500 Body height 182.88 cm [facility] 10-24-2023 13:32-0500 Body mass index (BMI) [Ratio] 27.2 kg/m2 [facility] 10-24-2023 13:32-0500 Body weight 91.17 kg [facility] 10-17-2023 11:03-0500 Body height 182.88 cm [facility] 10-17-2023 11:03-0500 Body mass index (BMI) [Ratio] 26.7 kg/m2 [facility] 10-17-2023 11:03-0500 Body temperature 97.7 [degF] [facility] 10-17-2023 11:03-0500 Body weight 89.35 kg [facility] 10-17-2023 11:03-0500 Diastolic blood pressure 78 mm[Hg] [facility] 10-17-2023 11:03-0500 Heart rate 84 /min [facility] 10-17-2023 11:03-0500 Respiratory rate 16 /min [facility] 10-17-2023 11:03-0500 SaO2% (BldA) [Mass fraction] 100 % [facility] 10-17-2023 11:03-0500 Systolic blood pressure 127 mm[Hg] [facility] 10-09-2023 10:28-0500 Body height 182.9 cm RUBEN JOVEL MD [facility] 10-09-2023 10:28-0500 Body temperature 96.98 [degF] RUBEN JOVEL MD [facility] 10-09-2023 10:28-0500 Body weight 86.4 kg RUBEN JOVEL MD [facility] 10-09-2023 10:28-0500 Diastolic Blood Pressure Non-Invasive 82 mm[Hg] RUBEN JOVEL MD [facility] 10-09-2023 10:28-0500 Heart rate 101 /min RUBEN JOVEL MD [facility] 10-09-2023 10:28-0500 Respiratory rate 18 /min RUBEN JOVEL MD [facility] 10-09-2023 10:28-0500 Systolic Blood Pressure Non-Invasive 138 mm[Hg] RUBEN JOVEL MD [facility] 06-09-2023 14:20-0400 Body temperature 97.59 [degF] Adolfo Zepeda MD Work Phone: [facility] 06-09-2023 14:20-0400 Body weight 77.93 kg Adolfo Zepeda MD Work Phone: [facility] 06-09-2023 14:20-0400 Diastolic blood pressure 82 mm[Hg] Adolfo Zepeda MD Work Phone: [facility] 06-09-2023 14:20-0400 Heart rate 86 /min Adolfo Zepeda MD Work Phone: [facility] 06-09-2023 14:20-0400 Respiratory rate 16 /min Adolfo Zepeda MD Work Phone: [facility] 06-09-2023 14:20-0400 SaO2% (BldA) [Mass fraction] 96 % Adolfo Zepeda MD Work Phone: [facility] 06-09-2023 14:20-0400 Systolic blood pressure 128 mm[Hg] Adolfo Zepeda MD Work Phone: [facility] 05-26-2023 21:13-0400 Body temperature 97.3 [degF] [facility] 05-26-2023 21:13-0400 Diastolic blood pressure 81 mm[Hg] [facility] 05-26-2023 21:13-0400 Heart rate 89 /min [facility] 05-26-2023 21:13-0400 Respiratory rate 16 /min [facility] 05-26-2023 21:13-0400 SaO2% (BldA) [Mass fraction] 96 % [facility] 05-26-2023 21:13-0400 Systolic blood pressure 134 mm[Hg] [facility] 05-26-2023 19:28-0400 Body mass index (BMI) [Ratio] 27.1 kg/m2 [facility] 05-26-2023 19:28-0400 Body weight 90.71 kg [facility] 05-26-2023 18:50-0400 Body height 182.88 cm [facility] 08-26-2023 21:02-0400 Body temperature 97.5 [degF] [facility] 05-05-2023 21:02-0400 Diastolic blood pressure 79 mm[Hg] [facility] 05-05-2023 21:02-0400 Heart rate 67 /min [facility] 05-05-2023 21:02-0400 Respiratory rate 16 /min [facility] 05-05-2023 21:02-0400 SaO2% (BldA) [Mass fraction] 97 % [facility] 05-05-2023 21:02-0400 Systolic blood pressure 112 mm[Hg] [facility] 05-05-2023 21:00-0400 Body height 182.88 cm [facility] 05-05-2023 21:00-0400 Body mass index (BMI) [Ratio] 25.2 kg/m2 [facility] 05-05-2023 21:00-0400 Body weight 84.4 kg [facility] 03-18-2023 21:47-0400 Blood Pressure Cuff Size JORDYN COFFMAN MD [facility] 03-18-2023 21:47-0400 Blood Pressure Location JORDYN COFFMAN MD [facility] 03-18-2023 21:47-0400 Blood Pressure Method JORDYN COFFMAN MD [facility] 03-18-2023 21:47-0400 Body temperature 98.06 [degF] JORDYN COFFMAN MD [facility] 03-18-2023 21:47-0400 Diastolic Blood Pressure Non-Invasive 79 1 JORDYN COFFMAN MD [facility] 03-18-2023 21:47-0400 Heart rate 83 /min JORDYN COFFMAN MD [facility] 03-18-2023 21:47-0400 Respiratory rate 18 /min JORDYN COFFMAN MD [facility] 03-18-2023 21:47-0400 Systolic Blood Pressure Non-Invasive 132 1 JORDYN COFFMAN MD [facility] 01-08-2023 19:54-0400 Diastolic blood pressure 69 mm[Hg] [facility] 01-08-2023 19:54-0400 Heart rate 82 /min [facility] 01-08-2023 19:54-0400 Respiratory rate 16 /min [facility] 01-08-2023 19:54-0400 SaO2% (BldA) [Mass fraction] 95 % [facility] 01-08-2023 19:54-0400 Systolic blood pressure 135 mm[Hg] [facility] 01-08-2023 17:32-0400 Body height 187.96 cm [facility] 01-08-2023 17:32-0400 Body mass index (BMI) [Ratio] 56.6 kg/m2 [facility] 01-08-2023 17:32-0400 Body temperature 98.2 [degF] [facility] 01-08-2023 17:32-0400 Body weight 200.1 kg [facility] 06-24-2022 14:18-0400 Diastolic blood pressure 86 mm[Hg] Seng Glover MD Work Phone: [facility] [place] 06-24-2022 14:18-0400 Heart rate 71 /min Seng Glover MD Work Phone: [facility] 06-24-2022 14:18-0400 Respiratory rate 16 /min Seng Glover MD Work Phone: [facility] 06-24-2022 14:18-0400 Systolic blood pressure 122 mm[Hg] Segn Glover MD Work Phone: [facility] [place] 06-24-2022 13:11-0400 SaO2% (BldA) [Mass fraction] 99 % Seng Glover MD Work Phone: [facility] [place] 06-24-2022 09:03-0400 Body height 180.3 cm Seng Glover MD Work Phone: [facility] [place] 06-24-2022 09:03-0400 Body mass index (BMI) [Ratio] 25.8 kg/m2 Seng Glover MD Work Phone: [facility] [place] 06-24-2022 09:03-0400 Body temperature 97.9 [degF] Seng Glover MD Work Phone: [facility] [place] 06-24-2022 09:03-0400 Body weight 83.92 kg Seng Glover MD Work Phone: [facility] [place] 04-01-2022 20:20-0400 Respiratory rate 18 /min [facility] Work Phone: 04-01-2022 19:31-0400 Body height 180.34 cm [facility] Work Phone: 04-01-2022 19:31-0400 Body mass index (BMI) [Ratio] 25.7 kg/m2 [facility] Work Phone: 04-01-2022 19:31-0400 Body temperature 97.9 [degF] [facility] Work Phone: 04-01-2022 19:31-0400 Body weight 83.91 kg [facility] Work Phone: 04-01-2022 19:31-0400 Diastolic blood pressure 93 mm[Hg] [facility] Work Phone: 04-01-2022 19:31-0400 Heart rate 89 /min [facility] Work Phone: 04-01-2022 19:31-0400 SaO2% (BldA) [Mass fraction] 100 % [facility] Work Phone: 04-01-2022 19:31-0400 Systolic blood pressure 131 mm[Hg] [facility] Work Phone: 09-25-2020 10:11-0500 Body Temperature 97.59 [degF] Myah Merida [place], [place] 09-25-2020 10:11-0500 BP Diastolic 101 mm[Hg] Myah Merida [facility]- [place] , [place] 09-25-2020 10:11-0500 BP Systolic 146 mm[Hg] Myah Blackwood [facility] [place] , [place] 09-25-2020 10:11-0500 Pulse (Heart Rate) 103 /min Myah Blackwood [facility] [place], [place] 09-25-2020 10:11-0500 Pulse Oximetry 100 % Myah Blackwood [facility] , [place] 09-25-2020 10:11-0500 Respiratory Rate 18 /min [facility] [place] [place] 08-02-2020 07:26-0500 Body Temperature 98.01 [degF] [facility] [place] [place] 08-02-2020 07:26-0500 BP Diastolic 97 mm[Hg] [facility] [place] [place] 08-02-2020 07:26-0500 BP Systolic 137 mm[Hg] [facility] [place] [place] 08-02-2020 07:26-0500 Pulse (Heart Rate) 97 /min [facility] [place] [place] 08-02-2020 07:26-0500 Pulse Oximetry 100 % [facility] [place] [facility] [place] 08-02-2020 07:26-0500 Respiratory Rate 18 /min [facility] [place] [place] 06-10-2020 14:27-0400 BP Diastolic 100 mm[Hg] [facility] [place] 06-10-2020 14:27-0400 BP Systolic 138 mm[Hg] [facility] , [place] 06-10-2020 14:27-0400 Pulse (Heart Rate) 85 /min [facility], [place] 06-10-2020 14:27-0400 Pulse Oximetry 99 % [facility] [place] 06-10-2020 14:27-0400 Respiratory Rate 14 /min [facility] [place] [place] 06-10-2020 13:40-0400 BMI (Body Mass Index) 25.09 kg/m2 [facility], [place] 06-10-2020 13:40-0400 Body Temperature 98.01 [degF] Hema Andrew [facility] [place] 06-10-2020 13:40-0400 Body weight 83.92 kg Hema Andrew [facility] [place] , [place] 06-10-2020 13:40-0400 Height 182.9 cm Hema Andrew [facility] , [place] 06-08-2020 19:10-0400 Body Temperature 98.4 [degF] La Dorado [facility] [place] 06-08-2020 19:10-0400 BP Diastolic 97 mm[Hg] [facility] [place] , [place] 06-08-2020 19:10-0400 BP Systolic 131 mm[Hg] [facility] [place] 06-08-2020 19:10-0400 Pulse (Heart Rate) 93 /min [facility] [place] 06-08-2020 19:10-0400 Pulse Oximetry 99 % [facility] [place] 06-08-2020 19:10-0400 Respiratory Rate 16 /min [facility] [place] [place] 12-20-2019 13:18-0400 BP Diastolic 84 mm[Hg] [facility] [place] 12-20-2019 13:18-0400 BP Systolic 136 mm[Hg] [facility] [place] 12-20-2019 13:01-0400 BMI (Body Mass Index) 25.8 kg/m2 [facility] [place] 12-20-2019 13:01-0400 Body Temperature 97.81 [degF] [facility] [place] [place] 12-20-2019 13:01-0400 Body weight 83.92 kg [facility] [place] 12-20-2019 13:01-0400 Height 180.3 cm [facility] [place] 12-20-2019 13:01-0400 Pulse (Heart Rate) 100 /min [facility] [place] 12-20-2019 13:01-0400 Pulse Oximetry 100 % [facility] [place] 12-20-2019 13:01-0400 Respiratory Rate 17 /min [facility] [place] [place] Encounters Encounter Date Encounter Type Care Provider Facility Start: 04-21-2025 End: 04-21-2025 Emergency department patient visit Jennifer Mathur ONLINE PROJECT MANAGER-C Work Phone: -Emergency Department Work Phone: Start: 04-17-2025 End: 04-17-2025 ambulatory DACIA CAMEJO Facility:[facility] Start: 04-14-2025 End: 04-14-2025 Emergency department patient visit Kady Sahu MD Work Phone: [facility] Comment on above: Epigastric pain (Berna nelly Dx) Start: 03-20-2025 End: 03-20-2025 Telephone encounter Harriet Rivera MD Work Phone: [facility] Comment on above: Patient Question Start: 03-20-2025 End: 03-20-2025 Emergency department patient visit Wagner Cifuentes DO Work Phone: [facility] Comment on above: Abdominal pain, epig astric (Primary Dx); Nausea and vomiting, unspecified vomiting type Start: 03-19-2025 End: 03-20-2025 Telephone encounter Harriet Rivera MD Work Phone: [facility] Start: 03-15-2025 End: 03-15-2025 Emergency department patient visit YOLY REY DO [facility] Start: 03-05-2025 End: 03-05-2025 Patient encounter procedure Harriet Rivera MD Work Phone: [facility] Comment on above: Gastroesophageal ref lux disease with esophagitis without hemorrhage (Primary Dx); Hiatal hernia; Esophageal spasm; Tobacco use; Polysubstance abuse (HCC); Bipolar affective disorder, remission status unspecified (HCC) Start: 03-05-2025 End: 03-05-2025 ambulatory HARRIET RIVERA Facility:[facility] Start: 02-12-2025 End: 02-12-2025 Telephone encounter Harriet Rivera MD Work Phone: [facility] Comment on above: Appointment (Needs f ollow up appointment) Start: 02-12-2025 ambulatory HARRIETJARRELL RIVERA Facility: [facility] Start: 02-10-2025 End: 02-10-2025 Emergency department patient visit DACIA CAMEJO Facility:[facility] Start: 02-10-2025 ambulatory HARRIET RIVERA Facility: [facility] Start: 02-10-2025 End: 02-10-2025 Subsequent hospital visit by physician Gi/Gu [facility] Comment on above: Gastroesophageal ref lux disease, unspecified whether esophagitis present [K21.9] Start: 02-09-2025 End: 02-09-2025 Emergency department patient visit Jennifer AMBROSIO Work Phone: -Emergency Department Work Phone: Start: 02-03-2025 End: 02-03-2025 Telephone encounter Harriet Rivera MD Work Phone: [facility] Comment on above: Patient Question Start: 01-23-2025 End: 01-23-2025 Telephone encounter Harriet Rivera MD Work Phone: [facility] Comment on above: Follow Up Start: 01-23-2025 Encounter for other preprocedural examination HARRIET RIVERA [facility] Start: 01-23-2025 End: 01-23-2025 Preprocedural examination done Harriet Rivera MD Work Phone: [facility] Start: 01-23-2025 ambulatory HARRIET RIVERA Facility: [facility] Start: 01-23-2025 End: 01-23-2025 Subsequent hospital visit by physician Harriet Rivera MD Work Phone: [facility] Comment on above: Gastroesophageal ref lux disease, unspecified whether esophagitis present [K21.9] Start: 01-09-2025 End: 01-13-2025 Telephone encounter Harriet Rivera MD Work Phone: [facility] Start: 01-01-2025 End: 01-09-2025 E-mail encounter from caregiver [facility] Provider [facility] Start: 01-01-2025 End: 01-09-2025 Follow-up encounter [facility] Provider [facility] Comment on above: Updated Follow Up Da te/Time Start: 12-27-2024 End: 12-28-2024 Emergency department patient visit Jennifer Mathur ONLINE PROJECT MANAGER-C Work Phone: -Emergency Department Work Phone: Start: 12-24-2024 End: 12-24-2024 Emergency department patient visit CATALINA DELAROSA Facility:[facility] Start: 2024 End: 2024 Telephone encounter Harriet Rivera MD Work Phone: [facility] Comment on above: Returning Patient's Call; Patient Question Start: 11-17-2024 End: 11-17-2024 Telephone encounter Harriet Rivera MD Work Phone: [facility] Comment on above: Patient Question; Pa tient Update Start: 11-12-2024 ambulatory HARRIET RIVERA Facility: [facility] Start: 11-12-2024 End: 11-12-2024 Subsequent hospital visit by physician [facility] Work Phone: Molecular Imaging Comment on above: Nausea [R11.0] Start: 10-23-2024 End: 10-23-2024 Patient encounter procedure Harriet Rivera MD Work Phone: [facility] Comment on above: Gastroesophageal ref lux disease, unspecified whether esophagitis present (Primary Dx); Nausea; Tobacco use disorder; Polysubstance abuse (HCC); Bipolar affective disorder, remission status unspecified (HCC) Start: 10-23-2024 End: 10-23-2024 ambulatory HARRIET RIVERA Facility:[facility] Start: 10-23-2024 End: 10-23-2024 Telephone encounter Harriet Rivera MD Work Phone: [facility] Comment on above: Appointment (EGD BRA VO MANO) Start: 10-13-2024 End: 10-13-2024 Emergency department patient visit GARRETT CANO MD [facility] Start: 10-10-2024 Encounter for other preprocedural examination Sancho Rodriguez [facility] Start: 09-22-2024 End: 09-22-2024 Patient encounter procedure Leisa WATERMAN-Sang [facility] Work Phone: Start: 09-22-2024 End: 09-22-2024 ambulatory Leisa WATERMAN Facility:[facility] Start: 09-17-2024 End: 09-17-2024 Emergency department patient visit Dr. Luther San MD -Emergency Department Work Phone: Start: 09-15-2024 ambulatory [facility] Fa cility:[facility] Start: 09-15-2024 Non-patient / Non-visit Dr. Amy Rodriguez MD -[facility] Start: 09-15-2024 End: 09-15-2024 Admission to same day surgery center Dr. Sancho Rodriguez MD [facility] Start: 09-15-2024 End: 09-15-2024 ambulatory [facility] Facility:[facility] Start: 09-02-2024 End: 09-02-2024 ambulatory [facility] Facility:[facility] Start: 09-02-2024 End: 09-02-2024 Non-patient / Non-visit Dr. Gabriel Arreola MD -[facility] Work Phone: Start: 08-15-2024 End: 08-15-2024 ambulatory [facility] Facility:[facility] Start: 08-05-2024 End: 08-05-2024 ambulatory [facility] Facility:[facility] Start: 07-22-2024 ambulatory [facility] Fa cility:[facility] Start: 07-22-2024 End: 07-22-2024 ambulatory [facility] Facility:[facility] Start: 07-17-2024 End: 07-17-2024 ambulatory DACIA CAMEJO Facility:[facility] Start: 07-17-2024 End: 07-17-2024 Patient encounter procedure Alfred Mckeon APRN.GAS APPLIANCE ADJUSTER Work Phone: [facility] Comment on above: Sinobronchitis (Prim nallely Dx); Exposure to pneumonia; History of COPD Start: 07-11-2024 ambulatory Sancholavern Rodriguez Lyn lity:[facility] Start: 06-10-2024 End: 06-10-2024 ambulatory [facility] Facility:[facility] Start: 05-21-2024 End: 05-21-2024 ambulatory [facility] Facility:[facility] Start: 03-14-2024 End: 03-14-2024 Emergency department patient visit DACIA SANCHEZ ESEQUIEL Facility:[id number] Start: 03-11-2024 End: 03-11-2024 Patient encounter procedure Celi Keane PA-C Work Phone: [facility] Comment on above: Chest tightness (Berna nelly Dx) Start: 03-11-2024 End: 03-11-2024 ambulatory CELI KEANE Facility:[id number] Start: 10-24-2023 End: 10-25-2023 Emergency department patient visit [facility] Work Phone: Start: 10-17-2023 End: 10-17-2023 Emergency department patient visit [facility] Work Phone: Start: 10-09-2023 End: 10-09-2023 Emergency department patient visit RUBEN JOVEL MD Facility:[facility] Start: 10-09-2023 End: 10-09-2023 Emergency department patient visit RUBEN JOVEL MD [facility] Start: 06-10-2023 ambulatory Obdulia PARRA [facility] [employer] Comment on above: Vomiting Start: 06-10-2023 Telephone encounter Araceli Toth APRN.GAS APPLIANCE ADJUSTER Work Phone: [facility] Comment on above: Results Start: 06-09-2023 End: 06-09-2023 Patient encounter procedure Adolfo Zepeda MD Work Phone: [facility] Comment on above: Influenza-like illne ss (Primary Dx); Acute non-recurrent sinusitis, unspecified location Start: 05-26-2023 End: 05-26-2023 [facility] Start: 05-05-2023 End: 05-05-2023 [facility] Start: 03-18-2023 End: 03-19-2023 Emergency department patient visit JORDYN COFFMAN Facility:[facility] Start: 03-18-2023 End: 03-18-2023 Emergency department patient visit JORDYN COFFMAN MD [facility] Start: 01-08-2023 End: 01-08-2023 Emergency department patient visit [facility] Start: 07-12-2022 End: 07-12-2022 Emergency department patient visit [facility] Start: 06-24-2022 End: 06-24-2022 Emergency department patient visit UNKNOWN PROVIDER [facility] Start: 06-24-2022 End: 06-24-2022 Emergency department patient visit Seng Glover MD Work Phone: [facility] Emergency [facility] Comment on above: Pleurisy (Primary Dx ) Start: 04-01-2022 End: 04-01-2022 Emergency department patient visit [facility] Start: 09-25-2020 End: 09-25-2020 Emergency department patient visit Myah Merida Work Phone: [facility] Comment on above: Cellulitis of right upper extremity (Primary Dx) Start: 08-02-2020 End: 08-02-2020 Emergency department patient visit Shaunna Cohen Work Phone: [facility] Comment on above: Forearm sprain, righ t, initial encounter (Primary Dx); Elbow sprain, right, initial encounter Start: 06-10-2020 End: 06-10-2020 Emergency department patient visit Hema Andrew [facility] Comment on above: Infected superficial injury of right hand, initial encounter (Primary Dx) Start: 06-08-2020 End: 06-08-2020 Emergency department patient visit [place] Work [facility] Comment on above: Contusion of right h and including fingers, initial encounter (Primary Dx) Start: 12-20-2019 End: 12-20-2019 Emergency department patient visit Seng Glover [facility] Comment on above: Pain, dental (Primar y Dx); Dental abscess; Dental caries Start: 11-22-2018 Patient encounter procedure DI DANGELO Facility:[facility] Start: 05-06-2018 Patient encounter procedure DI DANGELO Facility:[facility] Start: 04-01-2018 Patient encounter procedure DI DANGELO Facility:[facility] Start: 03-29-2018 Patient encounter procedure DI DANGELO Facility:[facility] Start: 03-11-2018 End: 03-11-2018 Patient encounter procedure DI TIM Facility:[facility] Start: 03-01-2018 End: 03-01-2018 Patient encounter procedure DI MAYRAONESIMO Facility:[facility] Start: 02-18-2018 End: 02-19-2018 Evaluation and management of inpatient IMCA Facility:[facility] Procedures Date Procedure Procedure Detail Performing Clinician [...] Comment: Speci men Type: BLOOD SPECIMENOrdering Facility: [facility] Address: [address], [place] [id number] Performed By: #### T SCR ####KIRBY BLOOD BANKCLIA [id number] [place] [address] [place] Start: 02-10-2025 Radiologic exam esop hagus single contrast study Harriet Rivera MD Work Phone: Start: 02-09-2025 Plain X-ray of shoulder Jennifer Mathur NP-C Work Phone: Start: 01-23-2025 Esophagoscp rig león soral hypopharynx crv esoph Harriet Rivera MD Work Phone: Start: 12-27-2024 CT of head without contrast Jennifer Mathur ONLINE PROJECT MANAGER-C Work Phone: Start: 12-27-2024 D-dimer assay, quantitative Jennifer Mathur ONLINE PROJECT MANAGER-C Work Phone: Comment on above: NORMAL D-Dimer level (<0.50) indicates no DVT or PE. Start: 12-27-2024 Estimated creatinine clearance Jennifer Mathur ONLINE PROJECT MANAGER-C Work Phone: Start: 11-12-2024 Gastric emptying srinivasa ging study Harriet Rivera MD Work Phone: Start: 09-17-2024 Computed tomography of abdomen and pelvis with intravenous contrast Jennifer Mathur ONLINE PROJECT MANAGER-C Work Phone: Start: 10-17-2023 Radiography of thora [...] 08-02-2020 Radex elbow complete minimum 3 views Shaunnakorey Spauldingumilli Work Phone: Start: 08-02-2020 Radex forearm 2 views V liu [employer] Work Phone: Start: 06-10-2020 Basic metabolic pane l calcium total Hema Andrew Work Phone: Start: 06-10-2020 Blood count complete auto&auto difrntl wbc Hema Jasso [employer] Work Phone: Start: 06-10-2020 C-reactive protein Aust in Romero [employer] Work Phone: Start: 06-10-2020 Sedimentation rate r bc automated Hema Jasso [employer] Work Phone: Start: 06-08-2020 Radex hand minimum 3 views [place] Work Phone: Start: 02-18-2018 Antibody screen DI TIM Comment on above: Performed By: #### T &S #### [place] [address] H/O: surgery Hx of hand surgery Jennifer bellamy ONLINE PROJECT MANAGER-C Work Phone: Comment on above: LEFT, LACERATION FRO M BROKEN JAR Plan of Treatment Date Care Activity Detail Author Start: 2040 Zoster Vaccines (1 of 2) Zoster Vaccines (1 of 2) [facility] Start: 05-11-2025 Influenza vaccination [facility] Start: 04-21-2025 [facility] Start: 03-05-2025 End: 06-04-2025 NICOTINE & METAB, UR NICOTINE & METAB, UR Lab Routine Tobacco use Expected: 03/05/2025, Expires: 06/04/2025 [facility] Work Phone: Comment on above: Expected: 03/05/2025, Expires: Start: 03-05-2025 End: 03-05-2025 Patient encounter procedure 03/05/2025 11:15 AM EDT Office Visit [facility] [address] [facility] [place] [address] Harriet Rivera MD 1 [facility] [address] [place], [place] [id number] results [facility] Comment on above: results Start: 02-12-2025 End: 02-12-2025 Patient encounter procedure [facility] Comment on above: f/u-GES, esophagram, EGD with fuentes and mano HBC-f/u-GES, esophag stevan, EGD with fuentes and mano Start: 02-10-2025 End: 02-10-2025 Patient encounter procedure 02/10/2025 2:30 PM EDT Appointment [facility] [address] [place] [address] Gastroesophageal reflux disease, unspecified whether esophagitis present [K21.9] [facility] Comment on above: Gastroesophageal reflux disease, unspeci fied whether esophagitis present [K21.9] Start: 01-23-2025 End: 01-23-2025 Patient encounter procedure 01/23/2025 10:00 AM EDT Appointment [facility] [address] [place] [address] Harriet Rivera MD 1 [facility] [address] [place] [address] [facility] Start: 01-23-2025 End: 01-23-2025 Admission to same day surgery center 01/23/2025 9:00 AM EDT - 01/23/2025 10:00 AM EDT Surgery [facility] [address] [place] [address] Harriet Rivera MD 1 [facility] [address] [place], [place] [id number] ESOPHAGEAL MANOMETRY [facility] Comment on above: ESOPHAGEAL MANOMETRY Start: 01-23-2025 End: 01-23-2025 Esophageal motility study w/interp&rpt [facility] Start: 01-23-2025 Subsequent hospital visit by physician 01/23/2025 9:00 AM EDT Hospital Encounter [facility] [place] [place] [address] Harriet Rivrea MD 1 [facility] [address] [place], [place] [phone] Gastroesophageal reflux disease, unspecified whether esophagitis present [K21.9] [facility] Comment on above: Gastroesophageal reflux disease, unspeci fied whether esophagitis present [K21.9] Start: 12-28-2024 [facility] Start: 12-27-2024 [facility] Start: 12-25-2024 End: 12-25-2024 Patient encounter procedure 12/25/2024 3:00 PM EDT Office Visit [facility] 1 [place] [address] Harriet Rivera MD 1 [facility] [address] [place], [place] [phone] f/u-GES, esophagram, EGD with fuentes and mano [facility] Comment on above: f/u-GES, esophagram, EGD with fuentes and mano Start: 12-15-2024 End: 10-23-2025 EGD - THERAPEUTIC, EUS, OR TUBE INTERVENTIONS EGD - THERAPEUTIC, EUS, OR TUBE INTERVENTIONS Endoscopy Routine Gastroesophageal reflux disease, unspecified whether esophagitis present Expected: 12/15/2024, Expires: 10/23/2025 [facility] Comment on above: Expected: 12/15/2024, Expires: Start: 12-12-2024 Subsequent hospital visit by physician 12/12/2024 Hospital Encounter [facility] [place] [address] Harriet Rivera MD 1 [facility] [address] [place], [place] [phone] Gastroesophageal reflux disease, unspecified whether esophagitis present [K21.9] [facility] Comment on above: Gastroesophageal reflux disease, unspeci fied whether esophagitis present [K21.9] Start: 12-05-2024 End: 12-05-2024 Patient encounter procedure 12/05/2024 10:00 AM EDT Appointment [facility] [place], [place] [id number] Gastroesophageal reflux disease, unspecified whether esophagitis present [K21.9] [facility] Comment on above: Gastroesophageal reflux disease, unspeci fied whether esophagitis present [K21.9] Start: 11-28-2024 End: 11-28-2024 Patient encounter procedure 11/28/2024 9:00 AM EDT Appointment [facility] 1 [place] [address] Harriet Rivera MD 1 [facility] [address] [place], [place] [phone] [facility] Start: 11-28-2024 End: 11-28-2024 Admission to same day surgery center 11/28/2024 8:00 AM EDT - 11/28/2024 9:00 AM EDT Surgery [facility] 1 [place] [address] Harriet Rivera MD 1 [facility] [address] [place], [place] [phone] ESOPHAGEAL MANOMETRY [facility] Comment on above: ESOPHAGEAL MANOMETRY Start: 11-28-2024 End: 11-28-2024 Esophageal motility study w/interp&rpt ESOPHAGEAL MANOMETRY Gastroesophageal reflux disease, unspecified whether esophagitis present 11/28/2024 8:00 AM EDT [facility] Start: 11-28-2024 Subsequent hospital visit by physician 11/28/2024 8:00 AM EDT Hospital Encounter [facility] 1 [place] [address] Harriet Rivera MD 1 [facility] [address] [place], [place] [phone] Gastroesophageal reflux disease, unspecified whether esophagitis present [K21.9] [facility] Comment on above: Gastroesophageal reflux disease, unspeci fied whether esophagitis present [K21.9] Start: 11-12-2024 End: 11-12-2024 Patient encounter procedure 11/12/2024 8:00 AM EST Appointment [facility] 1 [place] [address] Nausea [R11.0] [facility] Comment on above: Nausea [R11.0] Start: 10-23-2024 End: 01-22-2025 NICOTINE & METAB, UR NICOTINE & METAB, UR Lab Routine Tobacco use disorder Expected: 10/23/2024, Expires: 01/22/2025 [facility] Comment on above: Expected: 10/23/2024, Expires: Start: 09-17-2024 [facility] Start: 09-15-2024 Anes intraperitoneal upper abdomen w/laps nos ANES IPER UPR ABD NOS [facility] Start: 09-15-2024 Laps abd prtm&omentum dx w/wo spec br/wa spx DIAG LAPARO SEPARATE PROC [facility] Start: 09-15-2024 Patient discharge [facility] Start: 05-11-2024 Covid-19 Vaccine ( season) Covid-19 Vaccine ( season) [facility] Start: 05-11-2024 Influenza vaccination Influenza Vaccine (#1) [facility] Start: 10-24-2023 [facility] Start: 10-24-2023 Suicide precautions [facility] Start: 05-11-2023 Covid-19 Vaccine ( season) Covid-19 Vaccine ( season) [facility] Start: 05-11-2023 Influenza vaccination Influenza Vaccine (#1) [facility] Start: 05-05-2023 Streptococcus pyogenes antigen assay Group A Streptococcus Rapid Screen [facility] Start: 01-08-2023 [facility] Start: 04-10-2022 Influenza vaccination Flu vaccine (#1) [facility] Start: 06-14-2020 End: 06-14-2020 Office Visit 06/14/2020 Office Visit Family Medicine Bess Muniz, RIGGING WORKER - GAS APPLIANCE ADJUSTER [address] [place] [address] [phone] [facility] Start: 05-11-2020 Influenza vaccination [place] Start: 2017 HPV Vaccines (1 - 3-dose standard series) HPV Vaccines (1 - 3-dose standard series) [facility] Start: 2012 DTaP/Tdap/Td Vaccines (1 - Tdap) DTaP/Tdap/Td Vaccines (1 - Tdap) [facility] Start: 2009 DTaP/Tdap/Td vaccine (1 - Tdap) DTaP/Tdap/Td vaccine (1 - Tdap) [facility] Start: 2009 Hepatitis B Vaccine (1 of 3 - 19+ 3-dose series) Hepatitis B Vaccine (1 of 3 - 19+ 3-dose series) [facility] Start: 2009 Hepatitis B Vaccines (1 of 3 - 19+ 3-dose series) Hepatitis B Vaccines (1 of 3 - 19+ 3-dose series) [facility] Start: 2009 Pneumococcal vaccination Pneumococcal Vaccine (1 of 2 - PCV) [facility] Start: 2009 Urine microalbumin profile DTaP,Tdap,Td Vaccine (1 - Tdap) [facility] Start: 2008 Annual PCP Team Chronic Disease Visit Annual PCP Team Chronic Disease Visit [facility] Start: 2008 Anxiety Screening Anxiety Screening [facility] Start: 2008 Hepatitis C screening [facility] Start: 2008 Hepatitis C Screening Hepatitis C Screening [facility] Start: 2008 HIV Screening HIV Screening [facility] Start: 2008 HIV screening HIV Screening [facility] Start: 2005 HIV screen HIV screen [place], [place] Start: 2005 HIV screening HIV screen [facility] Start: 11-19-2003 Varicella vaccination Varicella Vaccines (1 of 2 - 13+ 2-dose series) [facility] Start: 2002 Depression Screen Depression Screen [facility] Start: 1996 Pneumococcal 0-64 years Vaccine (1 - PCV) Pneumococcal 0-64 years Vaccine (1 - PCV) [facility] Start: 1996 Pneumococcal 0-64 years Vaccine (1 of 1 - PPSV23) Pneumococcal 0-64 years Vaccine (1 of 1 - PPSV23) [place] Start: 1996 Pneumococcal vaccination [facility] Start: 11-19-1991 MMR Vaccines (1 of 1 - Standard series) MMR Vaccines (1 of 1 - Standard series) [facility] Start: 11-19-1991 Varicella vaccine (1 of 2 - 2-dose childhood series) Varicella vaccine (1 of 2 - 2-dose childhood series) [facility] Start: 05-21-1991 COVID-19 Vaccine (#1) COVID-19 Vaccine (#1) [facility] Start: 1990 Hepatitis B Vaccine (1 of 3 - 3-dose series) Hepatitis B Vaccine (1 of 3 - 3-dose series) [facility] Start: 1990 Hepatitis C screening Hepatitis C screen [place], [place] Start: 1990 HIV screening HIV Screening [facility] Start: 1990 Lipid panel Lipid Panel [facility] Start: 1990 Yearly Adult Physical Yearly Adult Physical [facility] End: 04-14-2025 ECG 12 lead ECG 12 lead ECG STAT Once for 1 Occurrences starting 04/14/2025 until 04/14/2025 [facility] Service Area Work Phone: Comment on above: Once for 1 Occurrences starting 04/14/20 until 04/14/2025 ECG COMPLETE ECG COMPLETE ECG Routine Chest tightness Ordered: 03/11/2024 [facility] Work Phone: Comment on above: Ordered: 03/11/2024 EKG 12 Lead EKG 12 Lead ECG STAT 06/24/2022 9:14 AM EDT [facility] Work Phone: Electrocardiographic procedure [facility] Esophageal motility study w/interp&rpt ESOPHAGEAL MANOMETRY Gastroesophageal reflux disease, unspecified whether esophagitis present [facility] Influenza virus A an d B RNA and SARS-CoV-2 (COVID-19) N gene panel - Respiratory specimen by TRINIDAD with probe detection COVID & INFLUENZA A/B NAAT, ROUTINE Microbiology Routine Influenza-like illness Acute non-recurrent sinusitis, unspecified location 06/09/2023 2:41 PM EDT [facility] Work Phone: End: 10-23-2025 Manometry Study observation Narrative MANOMETRY ESOPHAGEAL Endoscopy Routine Gastroesophageal reflux disease, unspecified whether esophagitis present 1 Occurrences starting 10/23/2024 until 10/23/2025 [facility] Comment on above: 1 Occurrences starting 10/23/2024 until 10/23/2025 End: 11-22-2025 NM Stomach Views for gastric emptying solid phase W radionuclide PO NM GASTRIC EMPTYING SOLID Radiology Routine Nausea 1 Occurrences starting 10/23/2024 until 11/22/2025 [facility] Work Phone: Comment on above: 1 Occurrences starting 10/23/2024 until 11/22/2025 Patient Education [facility] Work Phone: Patient referral [facility] Work Phone: Tissue Pathology bio psy report [facility] Work Phone: Comment on above: Release Upon Ordering for 1 Occurrences starting 01/23/2025, 1 completed End: 11-22-2025 XR Esophagus Views W contrast PO XR ESOPHAGRAM Radiology Routine Gastroesophageal reflux disease, unspecified whether esophagitis present 1 Occurrences starting 10/23/2024 until 11/22/2025 [facility] Comment on above: 1 Occurrences starting 10/23/2024 until 11/22/2025 End: 06-10-2020 XR HAND RIGHT (MIN 3 VIEWS) XR HAND RIGHT (MIN 3 VIEWS) Imaging STAT Once for 1 Occurrences starting 06/10/2020 until 06/10/2020 [facility] [place] Comment on above: Once for 1 Occurrences starting 06/10/20 20 until 06/10/2020 XR HAND RIGHT (MIN 3 VIEWS) XR H AND RIGHT (MIN 3 VIEWS) Imaging STAT 06/10/2020 2:58 PM EDT [facility] [place] Payers Date Payer Category Payer Miscellaneous or Other [id number] 2025 Unknown [id number] 2024 Self-pay [id number] 2023 Unknown 2023 Unknown [id number] 2022 Medicaid [id number] 2018 Unknown [id number] 2015 Medicaid [id number] 1990 Unknown [id number] 1990 Unknown [id number] 1990 Unknown [id number] 2.16.8 40.1.916867.3.579.2.278 1990 Unknown [id number] 2.16.8 40.1.145469.3.579.2.278 1990 Unknown [id number] 2.16.8 40.1.780840.3.579.2.278 1990 Unknown [id number] 2.16.8 40.1.124589.3.579.2.278 1990 Unknown [id number] 2.16.8 40.1.556096.3.579.2.278 1990 Unknown [id number] 2.16.8 40.1.277268.3.579.2.278 1990 Unknown [id number] 2.16. 840.1.464045.3.579.2.668 1990 Unknown [id number] 2.16.8 40.1.257254.3.579.2.627 1990 Unknown [id number] 2.16.8 40.1.171366.3.579.2.627 1990 Unknown [id number] 2.16. 840.1.368457.3.579.2.627 1990 Unknown [id number] 2.16.8 40.1.841677.3.579.2.627 1990 Unknown [id number] 2.16.8 40.1.729748.3.579.2.627 1990 Unknown [id number] 2.16.8 40.1.987373.3.579.2.1243 1990 Unknown [id number] 2.16.8 40.1.043868.3.579.2.1243 Unknown [id number] 2.16.8 40.1.927495.3.579.2.462 Unknown [id number] 2.16.8 40.1.529862.3.579.2.462 Unknown [id number] 2.16.8 40.1.032544.3.579.2.462 Unknown [id number] 2.16.8 40.1.668919.3.579.2.462 Unknown [id number] 2.16.8 40.1.536863.3.579.2.462 Unknown [id number] 2.16.8 40.1.604203.3.579.2.462 Unknown [id number] 2.16.8 40.1.196446.3.579.2.462 Unknown [id number] 2.16.8 40.1.007404.3.579.2.462 Unknown [id number] 2.16.8 40.1.725994.3.579.2.462 Unknown [id number] 2.16.8 40.1.190874.3.579.2.462 Unknown [id number] 2.16.8 40.1.427483.3.579.2.462 Unknown [id number] 2.16.8 40.1.180665.3.579.2.462 Unknown [id number] 2.16.8 40.1.563691.3.579.2.462 Unknown [id number] 2.16.8 40.1.299836.3.579.2.462 Unknown [id number] 2.16.8 40.1.281373.3.579.2.462 Unknown [id number] 2.16.8 40.1.963673.3.579.2.462 Social History Date Type Detail Facility Start: 12-20-2019 End: 01-23-2025 Tobacco smoking status NHIS Current every day sm[place] History of tobacco use Cigarette Smoker M [place] Start: 12-20-2019 End: 08-18-2020 Cigarettes smoked current (pack per day) - Reported [facility] Start: 12-20-2019 End: 06-10-2020 Alcohol intake Current drinker of alcohol (finding) [place] Start: 06-21-2016 Alcohol Comment occ [place] Start: 1990 Sex Assigned At Not on file [place] Exposure to SARS-CoV -2 (event) Unable to assess [place] Start: 03-04-2019 End: 06-08-2020 Tobacco use and exposure Never used [place] Start: 06-14-2022 End: 06-24-2022 Exposure to SARS-CoV-2 (event) Not sure [place] Start: 04-01-2022 End: 10-24-2023 Tobacco smoking status NHIS Unknown if ever smoked [facility] Start: 08-04-2019 Spouse/ Significant Other [facility] Start: 1990 Sex Assigned At Male [facility] Sex Assigned At [facility] Start: 08-19-2015 None [facility] Start: 05-19-2015 Cigarettes [facility] Start: 06-09-2023 End: 07-17-2024 Tobacco use and exposure User of smokeless tobacco [facility] History of tobacco use Chews Tobacco [facility] Start: 06-09-2023 End: 03-05-2025 Alcohol intake Current non-drinker of alcohol (finding) [facility] Start: 08-18-2020 End: 06-09-2023 Tobacco use panel [facility] Start: 03-20-2025 Adult Depression Screening Assessment 6 [facility] Start: 06-09-2023 Tobacco Comment started smoking 17yo [facility] Start: 02-19-2018 Gender identity Identifies as male gender (finding) [facility] Start: 10-09-2023 Tobacco smoking status Heavy tobacco smoker (finding) [facility] Start: 01-07-2015 End: 12-28-2024 Sex Male (finding) [facility] Start: 10-23-2024 End: 01-23-2025 Tobacco use and exposure Former smokeless tobacco user [facility] Start: 09-18-2024 Sexual orientation Heterosexual (finding) [facility] Start: 12-27-2024 Tobacco smoking status NHIS Current Light tobacco smoker [facility] Start: 01-23-2025 Tobacco Comment started smoking 17yo Smokes 0.25 PPD since 11/2024Smoked 1-2 PPD x 17 years [facility] Start: 03-20-2025 Alcoholic beverage intake Ex-drinker (finding) [facility] Work Phone: Start: 04-21-2025 Tobacco smoking status NHIS Ex-smoker (finding) [facility] Medical Equipment Procedure Code Equipment Code Equipment Origin al Text Equipment Identifier Dates Connector Axogua rd 3mm Porcine Extracellular Matrix 15mm Nerve Coaptation - [id number] Start: 02-19-[address] 3mm Porcine Extracellular Matrix 15mm Nerve Coaptation - [id number] Start: 02-19-2018 Comment on above: Description: soft ti ssue hand Connector Axogua rd 2mm Porcine Extracellular Matrix 15mm Nerve Coaptation - [id number] Start: 02-19-2018 Goals Date Patient Goal Desired Activity /State Functional Status Date Assessment Result Facility 04-14-2025 [place] - suicide severity rating scale screener - recent [C-SSRS] [facility] Work Phone: 03-20-2025 [place] - suicide severity rating scale screener - recent [C-SSRS] [facility] Work Phone: 10-13-2024 Functional Status Independent [facility] abel [facility] 10-09-2023 Functional Status Standard Safet y ID band on, Call device within reach, Bed in low position, Wheels locked, Upper/Half-Length side-rails up [facility] 02-19-2018 Are you deaf, or do you have serious difficulty hearing No 02/19/2018 9:15 PM Sami Alvarez, NAZ No [facility] 02-19-2018 Are you blind, or do you have serious difficulty seeing, even when wearing glasses No 02/19/2018 9:15 PM Sami Alvarez, RN No [facility] 02-19-2018 Do you have serious difficulty walking or climbing stairs No 02/19/2018 9:15 PM Sami Alvarez, RN No [facility] 02-19-2018 Do you have difficul ty dressing or bathing No 02/19/2018 9:15 PM Sami Alvarez, NAZ [facility] 02-19-2018 Because of a physica l, mental, or emotional condition, do you have difficulty doing errands alone such as visiting a physician's office or shopping No 02/19/2018 9:15 PM Sami Alvarez RN No [facility] Mental Status Date Assessment Result Facility 04-21-2025 Cognitive function Level Of Cons ciousness Awake;Alert;Appropriate;Fol lows Commands [facility] Work Phone: 12-27-2024 Cognitive function Level Of Cons ciousness Awake;Alert;Appropriate;Fol lows Commands [facility] Work Phone: 10-13-2024 Mental Status Oriented x 4 [facility] 09-15-2024 Cognitive function Level Of Cons ciousness Appropriate;Lethargic [facility] Work Phone: 09-15-2024 Cognitive function Voice/Name [facility] Work Phone: 10-09-2023 Mental Status Orientation Oriented x 4 [facility] 02-19-2018 Because of a physica l, mental, or emotional condition, do you have serious difficulty concentrating, remembering, or making decisions No 02/19/2018 9:15 PM Sami Alvarez, RN No [facility] Clinical Notes 06-24-2022 to 04-20-2025 Kady Sahu MD - 04/14/2025 7:54 PM Evelyn Sahu MD - 04/14/2025 7:54 PM EDTTelephone Encounter - Tex Hartman RN - 03/20/2025 2:48 PM EDT Note Date & Type Note Facility 04-20-2025 Hospital Discharg e instructions Additional Instructions Your symptoms are consistent with an allergic reaction. Take the prednisone as directed to help resolve this. It would typically take 2 to 3 days for you to notice improvement. Continue with Tylenol for headache control. You can also add Benadryl to the prednisone if needed for increased itch relief. If you develop a fever or have any further concerns please return to the ER for repeat evaluation [facility] Work Phone: 04-14-2025 Physician Emergency department Note 34-year-old male presents [facility] the [place] [facility] with severe epigastric pain. He [...] performed using a different testing methodology at [facility] than at other [facility]. Direct result comparisons should only be made [...] performed using a different testing methodology at [facility] than at other [facility]. Direct result comparisons should only be made [...] Abnormality Status --------- ------ Troponin I, High Sensiti...[[id number]] Normal Final result Troponin, High Sensitivi...[[id number]] Normal Final result Please view results for these tests on the individual orders. CT chest abdomen pelvis w IV contrast Final Result Paraseptal emphysematous changes in the lung apices with dependent atelectatic changes bilaterally. No acute abnormality of the abdomen and pelvis. MACRO: None. Signed by: Julito Ahuja 04/14/2025 9:52 PM Dictation workstation: [id number] Procedures Medical Decision Making 34-year-old male presents [facility] the [place] [facility] with severe epigastric pain. He [...] discharged back to the custody of the [place] [facility]. DDx: Pancreatitis, gastritis, PUD, biliary colic, cholelithiasis Amount and/or Complexity of Data Reviewed ECG/medicine tests: independent interpretation performed. Details: Sinus rhythm rate of 74, narrow complex, normal axis, no ST elevation or depression, no ectopy. Diagnoses as of 04/14/252199 Epigastric pain Kady Sahu MD 04/14/252199 [facility] Work Phone: 04-14-2025 Emergency department Note 34-year-old male presents [place] the [place] [facility] with severe epigastric pain. He [...] performed using a different testing methodology at [facility] than at other [facility]. Direct result comparisons should only be made [...] performed using a different testing methodology at [facility] than at other [facility]. Direct result comparisons should only be made [...] Abnormality Status --------- ------ Troponin I, High Sensiti...[[id number]] Normal Final result Troponin, High Sensitivi...[[id number]] Normal Final result Please view results for these tests on the individual orders. CT chest abdomen pelvis w IV contrast Final Result Paraseptal emphysematous changes in the lung apices with dependent atelectatic changes bilaterally. No acute abnormality of the abdomen and pelvis. MACRO: None. Signed by: Julito Ahuja 04/14/2025 9:52 PM Dictation workstation: [id number] Procedures Medical Decision Making 34-year-old male presents [place] the [place] [facility] with severe epigastric pain. He [...] discharged back to the [place] of the [place] [facility]. DDx: Pancreatitis, gastritis, PUD, biliary colic, cholelithiasis Amount and/or Complexity of Data Reviewed ECG/medicine tests: independent interpretation performed. Details: Sinus rhythm rate of 74, narrow complex, normal axis, no ST elevation or depression, no ectopy. Diagnoses as of 04/14/252199 Epigastric pain Kady Sahu MD 04/14/252199 documented in this encounter [facility] Work Phone: 03-20-2025 Telephone encounter Note Pt's jim Rivera called again to insist that Dr. Rivera or Dr. Rivera's nurse write a medical release form to [facility] for pt. Advised (multiple times) that we do not write medical release forms without speaking with the [place] [facility] and/or evaluation of the patient. Assured her that the [place] [facility] has their protocols for pt's( inmates) who need medical attention/evaluation. Advised her that her and his mother's multiple requests have been noted and will be sent to Dr. Rivera and Bipin Wei, RN. Pt's jim was quite upset and states I'll be looking into you guys then, because you are supposed to write a note, and that is what we were told. She hung up the phone. She has since called back multiple times. Tex Hartman RN, BSN Bariatric Trust Clerk [facility] 03-20-2025 Miscellaneous Notes Pt's jim Rivera called again to insist that Dr. Rivera or Dr. Rivera's nurse write a medical release form to [facility] for pt. Advised (multiple times) that we do not write medical release forms without speaking with the [place] [facility] and/or evaluation of the patient. Assured her that the [place] [facility] has their protocols for pt's( inmates) who need medical attention/evaluation. Advised her that her and his mother's multiple requests have been noted and will be sent to Dr. Rivera and Bipin Wei, RN. Pt's jim was quite upset and states I'll be looking into you guys then, because you are supposed to write a note, and that is what we were told. She hung up the phone. She has since called back multiple times. Tex Hartman RN, BSN Bariatric Trust Clerk Pt's mother called post op line in regards to [facility] She is not listed in his chart as a contact or on his HIPAA contact list. Advised her of this, and let her know that I could take her message, but could not give her medical information. She reports that he is having pain, so the [place] the [facility] for [facility], then [facility]. Per the mother, the nurse at the [facility] does not want him there, because they think he is medically unstable. The mother states the [facility] is requesting a form sent over for a medical release for her son. Advised her that we did not evaluate him, but if the hospital that evaluated him deemed him medically unstable, they would have to write a medical release form. Advised her as well, that the [facility] would contact us if they needed a form for his medical release. She then said our office has written notes for him to stay out of [facility] before and we need to write one for him to leave. She states he needs to see his doctor. Advised her that the [facility] makes the decision to take him to get medically treated, which they have done and they have not contacted our office. Advised her that I will forward her message to Dr. Rivera and Bipin Wei RN. She insists that we do not need to speak with the [place], because they don't do things like [facility]. She states, well you just don't know [facility], you just send them the form. Advised that is not our policy. Pt's mother has no further questions. Tex Hartman RN, BSN Bariatric Trust Clerk Patient's significant other called and left a message yesterday about Amado. She returned my call this morning. [facility] Yoly said, He is having so much pain from his ulcer and the [place] refuses to give him his medications. He isn't able to eat and he is supposed to be on a liquid diet, you know those protein drinks and they won't give it to him. He can't even keep down water. I told Yoly if he cannot keep liquids down he needs to go to the ER and the [facility] has a protocol for that. Yoly states they refuse to take him. That [facility] is being investigated for not giving people their medications from the doctor. Can't you call the [place] [facility]? I've called them, his mother has called them and cussed them out. They are not doing anything. I told Yoly this is beyond our capabilities and recommended that she and Amado's mom reach out to Amado's state attorney who will have the legal knowledge to assist Amado. Yoly verbally acknowledged my suggestion. Bipin Wei RN documented in this encounter [facility] 03-20-2025 Telephone encounter Note Pt's mother called post op line in regards to son who is currently incarcerated in [facility]. She is not listed in his chart as a contact or on his HIPAA contact list. Advised her of this, and let her know that I could take her message, but could not give her medical information. She reports that he is having pain, so the [place] the hospital for evaluation, then [facility]. Per the mother, the nurse at the [facility] does not want him there, because they think he is medically unstable. The mother states the [facility] is requesting a form sent over for a medical release for her son. Advised her that we did not evaluate him, but if the hospital that evaluated him deemed him medically unstable, they would have to write a medical release form. Advised her as well, that the [facility] would contact us if they needed a form for his medical release. She then said our office has written notes for him to stay out of [facility] before and we need to write one for him to leave. She states he needs to see his doctor. Advised her that the [facility] makes the decision to take him to get medically treated, which they have done and they have not contacted our office. Advised her that I will forward her message to Dr. Rivera and Bipin Wei, RN. She insists that we do not need to speak with the [place], because they don't do things like [facility]. She states, well you just don't know [facility], you just send them the form. Advised that is not our policy. Pt's mother has no further questions. Tex Hartman RN, BSN Bariatric Trust Clerk [facility] 03-20-2025 Telephone encounter Note Patient's significant other called and left a message yesterday about Amado. She returned my call this morning. Amado is in [facility]. Yoly said, He is having so much pain from his ulcer and the [facility] refuses to give him his medications. He isn't able to eat and he is supposed to be on a liquid diet, you know those protein drinks and they won't give it to him. He can't even keep down water. I told Yoly if he cannot keep liquids down he needs to go to the ER and the [facility] has a protocol for that. Yoly states they refuse to take him. [facility] is being investigated for not giving people their medications from the doctor. Can't you call the [place]? I've called them, his mother has called them and cussed them out. They are not doing anything. I told Yoly this is beyond our capabilities and recommended that she and Amado's mom reach out to Am[place]'s state attorney who will have the legal knowledge to assist Amado. Yoly verbally acknowledged my suggestion. Bipin Wei RN [facility] 03-20-2025 Telephone encounter Note Received a phone call from the [employer] service 0824 am to inform us that an Yoly Walls called on pt's behalf late last night. She reported to the slasher machine operator that her fiance (the pt) states he is having pain d/t hernia. She reports that he is unable to even drink water. Dr. Rivera was paged and did not return call. Advised the slasher machine operator that the caller is not listed as an emergency contact or on HIPAA list in this pt's chart. Pt is currently incarcerated. Business Process Architect will make note that fiance is not listed in pt's chart Tex Hartman RN, BSN Bariatric Trust Clerk [facility] 03-20-2025 Miscellaneous Notes Received a phone call from the answering service 0824 am to inform us that an Yoly Walls called on pt's behalf late last night. She reported to the slasher machine operator that her fiance (the pt) states he is having pain d/t hernia. She reports that he is unable to even drink water. Dr. Rivera was paged and did not return call. Advised the slasher machine operator that the caller is not listed as an emergency contact or on HIPAA list in this pt's chart. Pt is currently incarcerated. Business Process Architect will make note that fiance is not listed in pt's chart Tex Hartman RN, BSN Bariatric Trust Clerk Woman that states she is patient's fiance Yoly Martel called to say [facility] and they are not feeding him. Call was placed on hold and somehow disconnected. Yoly is currently not listed as an emergency contact or included on patient HIPAA form. No further contact has been made with caller. Parris Marin LPN documented in this encounter [facility] 03-19-2025 Telephone encounter Note Woman that states she is patient's fiance Yoly Grayes called to say [facility] and they are not feeding him. Call was placed on hold and somehow disconnected. Yoly is currently not listed as an emergency contact or included on patient HIPAA form. No further contact has been made with caller. Parris Marin LPN [facility] Work Phone: 03-15-2025 Hospital Discharg e instructions [...] notice a spot that is especially painful [employer]. [address] [place] [address], [place] [address]. All rights reserved. This information is not [...] thin towel or cloth. You may use zryk-oph-pajqbyc pain medicine (NSAIDS or nonsteroidal anti-inflammatory drugs) [...] or is irritated You re-injure your ankle [phone] [employer]. [address] [place] [address]. All rights reserved. This information is not intended as a substitute for professional medical care. Always follow your healthcare professional's instructions. Follow Up Care 03/15/2025 18:28:10 With:LINK JIMENEZ MD Address: [address] [place] [address] [facility] [place] [address] [phone] When:5 to 7 days With:Go to emergency room if symptoms worsen Address:Unknown When:2-4 days With:JULIA FISCHERM, Surgery Address: [address] [place] [phone]- Business (1) When:2-4 days [facility] 03-15-2025 Note Discharge Instructions Thank you for allowing [facility] to assist you with your healthcare needs. [...] JIMENEZ MD When:Within 5 to 7 days Where:[address] [place], [place] [address]Y [address] [place] [address]- [phone] Follow Up with Go to emergency room if symptoms worsen When:Within 2-4 days Follow Up with JULIA FISCHER DPM, Surgery When:Within 2-4 days Where:[address] [facility] [address] [place] [address]- [facility] (1) Allergies penicillin Medications Please [...] notice a spot that is especially painful [phone] [employer]. [address] [place] [address], [place] [id number]. All rights reserved. This information is not [...] thin towel or cloth. You may use rdlc-heg-qctuvhx pain medicine (NSAIDS or nonsteroidal anti-inflammatory drugs) [...] or is irritated You re-injure your ankle [phone] [employer]. [address] [place] [address]. All rights reserved. This information is not intended as a substitute for professional medical care. Always follow your healthcare professional's instructions. Additional Information VACCINATE! IT SAVES LIVES! Members of the community who have not yet received the COVID-19 vaccine and would like to receive it can visit one of [facility] vaccine clinics. There are many vaccine clinic locations within the [facility]. For locations and available times, please visit [email or web address] .[email or web address] It is important to note that some COVID mobile vaccine clinics are held outdoors and may be canceled in rainy or stormy conditions. To learn more about pediatric vaccinations (ages 5-11), we invite you to visit the [facility] webpage. [email or web address] To learn more about the COVID-19 vaccine, we invite you to visit the CDC website for a list of frequently asked questions. https://www.cdc.gov/coronavirus /2019-ncov/vaccines/faq.html [facility] Patient Portal Access Instructions: Stay connected with your healthcare team and access your personal medical information anytime with the [facility] Patient Portal. If you would like a full copy of your medical records please contact the [facility] Medical Records Department Sunday through Sunday between 8a.m. and 4:30p.m. Please follow the directions below to access the portal: 1.Access the email account you provided upon registration to the [facility].2.Look for an invitation email from [facility].3.Open the email and access the invitation link: Accept Invitation to [facility]4.Fill in the required mayer to create your account. Sign into [email or web address] with your username and password that you [...] you will allow to register on the [facility] Patient Portal for access to your information. You can also access the [facility] Patient Portal on the FetchBack marva. Simply click on Health Records under Health Data and then click on the Boni logo. HOW TO SAFELY DISPOSE OF PRESCRIPTION [...] Call your local pharmacy or go to [email or web address] to find one close to you.3.Make use of household items: Use cat litter or old coffee grounds to dispose medications if other options are not available. Mix your drugs with these household products, seal them in an airtight container and throw it into the garbage. Call [facility]: [phone] to be sure your drugs can be [...] aware that I should contact my doctor. Patient/Reprographics Associate Signature: Date/Time: Relationship to Patient: Witness Name/Signature: Date/Time: [facility] 03-15-2025 Note Exam Date Time Procedure Performing Provider Status 03/15/25 6:52 PM XR Ankle and Foot 6 Views Right REECE QUIROZ MD; Auth (Verified) [id number] ORIGINAL EXAMINATION: 6 XRAY VIEWS OF THE [...] 03/15/2025 7:13:24 PM Ordering Provider: CATALINA DELAROSA [facility]06-26-2025 NoteHNO ID: [id number] Author: HARRIET RIVERA MD Service: ? Author [...] 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 Today he presents with a support person. He reports continued symptoms of substernal burning and occasional regurgitation. Symptoms are often post prandial and when laying supine at HS. Workup: - EGD (01/23/25; Roman): LA grade B esophagitis. Fuentes capsule placement. [...] Date ADHD (attention deficit hyperactivity disorder) Asthma ([facility]) Bipolar disorder ([facility]) Depression [facility], history of suicide attempt Genital herpes 04/2013 GERD (gastroesophageal reflux disease) Polysubstance abuse ([facility]) meth, heroin. 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 Today he presents with a support person. He reports continued symptoms of substernal burning and occasional regurgitation. Symptoms are often post prandial and when laying supine at HS. Workup: - EGD (01/23/25; Roman): LA grade B esophagitis. Fuentes capsule placement. [...] Date ADHD (attention deficit hyperactivity disorder) Asthma ([facility]) Bipolar disorder ([facility]) Depression [facility], history of suicide attempt Genital herpes 04/2013 GERD (gastroesophageal reflux disease) Polysubstance abuse ([facility]) meth, heroin. Oversoe 07/2019 [facility] Tobacco use disorder PAST SURGICAL HISTORY: PAST [...] 05, 2025 TIME: 11:43 AM PAGER/CONTACT #: [phone] documented in this encounterTrumbull [facility] Hospital06-06-2025 NoteHNO ID: [id number] Author: HARRIET RIVERA MD Service: ? Author Type: Physician Type: Progress Notes Filed: 02/13/2025 09:17 Note Text: Patient arrived with FUENTES warehouse receiver in hand - he had been provided with specific instructions previously regarding date and time he was to return the FUENTES warehouse receiver. He was to return the warehouse receiver around 01/26- and did not comply with these instructions. Due to not having sufficient information (FUENTES results) his appointment was rescheduled.[facility]06-05-2025 Telephone encounter Note* Telephone Encounter - Cara Escalante - 02/12/2025 1:52 PM EDT SW patient - let patient know the appointment is cancelled for 02/13/2025. [facility]06-05-2025 Miscellaneous Notes* Telephone Encounter - Cara Escalante - 02/12/2025 1:52 PM EDT SW patient - let patient know the appointment is cancelled for 02/13/2025. documented in this encounterTrumbull Memorial Hospital06-03-2025 History of Present illness Narrative* Kolby Holland RT(R) - 02/10/2025 2:30 PM EDT Radiology Service [...] PATIENT PRESENTS WITH AN IMPLANTABLE OR ATTACHED FISHER SWORDFISH: No RADIOLOGY DEPARTMENT: General X-ray: Exam(s) Completed: GI/ Procedure(s): Esophogram with barium contrast PERIPHERAL IV DATA: Not applicable SIGNED BY: RILEY Roldan) February 10, 2025 2:51 PM documented in this encounterTrumbull Memorial Hospital06-03-2025 NoteHNO ID: [id number] Author: KOLBY HOLLAND RT(R) Service: ? Author Type: Pattern Molder Type: Progress Notes Filed: 02/10/2025 14:52 Note [...] PATIENT PRESENTS WITH AN IMPLANTABLE OR ATTACHED FISHER SWORDFISH: No RADIOLOGY DEPARTMENT: General X-ray: Exam(s) Completed: GI/ Procedure(s): Esophogram with barium contrast PERIPHERAL IV DATA: Not applicable SIGNED BY: RT Jamar(Romero) February 10, 2025 2:51 [facility]06-02-2025 Radiology Diagnostic study note [facility] Imaging Services [address] [place] [id number] Shoulder min 2 Views MR#: [id number] Acct: [id number] Name: AMADO MARINELLI Rep #: [id number] : 1990 M 34 From: Adriel Larkin MD PCP: MAYCOL Jenkins, ONLINE PROJECT MANAGER-C Status: PRE ER Study:Shoulder min 2 Views Date of Exam: 02/09/25 Exam# [id number] Ordering Dr: Provider ,Ed P. PROCEDURE: SHOULDER MIN 2 VIEWS 02/09/2025 REASON FOR EXAM: FALL TECHNIQUE: Four views of the left shoulder. COMPARISON: None. FINDINGS: No evidence of acute fracture or dislocation. Soft tissues are unremarkable. RAD/Shoulder min 2 Views IMPRESSION: No acute osseous abnormalities. Reading Location: [id number] CC: [facility] ONLINE PROJECT MANAGER-C Jennifer Mathur; ED PHYSICIAN PROVIDER ~ Train Control Electronic Technician: Signed [facility]05-27-2025 Telephone encounter Note* Telephone Encounter - Bipin Wei RN - 02/03/2025 4:23 PM EDT Patient called and informed me he is done with his testing and he does not understand what his appointment is for on 02/10/25. I reminded him that he no showed for his UGI x-ray in November and we got it rescheduled at [facility]. Patient apologized and wrote down the address I gave him. I reminded him to be NPO for 4 hours before the testing. Patient agreed. Patient confirmed his appointment on 02/12/[address] Rivera. He thanked me for the information. Bipin Wei RN [facility]05-27-2025 Miscellaneous Notes* Telephone Encounter - Bipin Wei RN - 02/03/2025 4:23 PM EDT Patient called and informed me he is done with his testing and he does not understand what his appointment is for on 02/10/25. I reminded him that he no showed for his UGI x-ray in November and we got it rescheduled at [facility]. Patient apologized and wrote down the address I gave him. I reminded him to be NPO for 4 hours before the testing. Patient agreed. Patient confirmed his appointment on 02/12/[address] Rivera. He thanked me for the information. Bipin Wei RN documented in this encounterTrumbull Memorial Hospital05-16-2025 Telephone encounter Note * Telephone Encounter - [...] to be sent to Judge Gunderson at [facility]. [place] [facility] [place] starting 02/09/25. Judge Gunderson [...] patient to Centralized Scheduling. Bipin Wei RN [facility]05-16-2025 Miscellaneous Notes* Telephone Encounter - Bipin Wei [...] to be sent to Judge Gunderson at [facility]. [place] [facility] starting 02/09/25. Judge Gunderson told the patient he will reassign the report date if he receives a letter from his doctor with his appointment dates. Patient stated he will get me a fax number to submit it to [facility]. I told him I will share this [...] Scheduling. Bipin Wei RN documented in this encounterTrumbull Memorial Hospital05-16-2025 Nurse Note* Madan Chavez RN - 01/23/2025 [...] following procedure.No heme noted when catheter removed. [facility]05-16-20[facility] Nurse Note* Madan Chavez RN - 01/23/2025 [...] noted when catheter removed. documented in this encounterTrumbull Memorial Hospital05-16-2025 History and physical note * Loan Caraballo APRN.GAS APPLIANCE ADJUSTER - 01/23/2025 10:00 AM EDT HISTORY AND [...] 04/2013 GERD (gastroesophageal reflux disease) Polysubstance abuse ([facility]) meth, heroin. Oversoe 07/2019 [facility] Tobacco use disorder PAST SURGICAL HISTORY Procedure [...] no history of chest pain, palpitations, CHF, CT, cardiac surgery or stents GI: see HPI [...] which included preparing to see the patient, [id number] patient care, completing clinical documentation, and performing a medically appropriate examination. Instructions Given to Patient: Patient given verbal preop instructions and voices comprehension and compliance. SIGNATURE: Loan Caraballo APRN.CNP PATIENT NAME: Amado Marinelli DATE: January 23, 2025 TIME: 7:28 AM PAGER/CONTACT #: [facility]05-16[facility] History and physical note* Loan Caraballo APRN.CNP - 01/23/2025 10:00 AM EDT HISTORY AND [...] Date ADHD (attention deficit hyperactivity disorder) Asthma ([facility]) Bipolar disorder ([facility]) Depression [facility], history of suicide attempt Genital herpes 04/2013 GERD (gastroesophageal reflux disease) Polysubstance abuse ([facility]) meth, heroin. Oversoe 07/2019 [facility] Tobacco use disorder PAST SURGICAL HISTORY Procedure [...] no history of chest pain, palpitations, CHF, CT, cardiac surgery or stents GI: see HPI [...] which included preparing to see the patient, [id number] patient care, completing clinical documentation, and performing a medically appropriate examination. Instructions Given to Patient: Patient given verbal preop instructions and voices comprehension and compliance. SIGNATURE: Loan Caraballo APRN.CNP PATIENT NAME: Amado Marinelli DATE: January 23, 2025 TIME: 7:28 AM PAGER/CONTACT #: documented in this encounterTrumbull Memorial Hospital05-16-2025 NoteHNO ID: [id number] Author: CARRIE RAINEY RN Service: Nursing Author Type: Registered Nurse Type: Nursing Progress Note Filed: 01/23/2025 11:44 Note Text: Dr. Rivera at bedside but pt too sleepy Fuentes teaching given to pt and mom when pt more awakeNorthern [facility]05-16-2025 Nurse Note* Carrie Rainey RN - 01/23/2025 10:[address] Rivera at bedside but pt too sleepy Fuentes teaching given to pt and mom when pt more awake [facility]05-16-20[facility] Nurse Note* Carrie Rainey RN - 01/23/2025 10:[address] Rivera at bedside but pt too sleepy Fuentes teaching given to pt and mom when pt more awake documented in this encounterTrumbull Memorial Hospital05-02-2025 Telephone encounter Note * Telephone Encounter - [...] Denies diarrhea or constipation, fever or chills. [facility] Work Phone: 1(292) 647-423805-02-2025 Miscellaneous Notes* Telephone Encounter - Parris Marin [...] constipation, fever or chills. documented in this encounterTrumbull Memorial Hospital05-02-2025 Telephone encounter Note * Telephone Encounter - Cara Escalante - 01/09/2025 2:30 PM EDT VM received requesting a call cack. Unable to LVM for patient - VM not set up. MyChart message sent to patient. [facility]05-02-2025 Miscellaneous Notes* Telephone Encounter - Cara Escalante - 01/09/2025 2:30 PM EDT VM received requesting a call cack. Unable to LVM for patient - VM not set up. [employer] Photon[employer] message sent to patient. documented in this encounterTrumbull Memorial Hospital04-20-2025 Discharge summary [facility] Medical Records Department [address] [place] [address] Emergency Department Summary 12/27/24 MR#: [id number] Acct: [id number] Name: AMADO MARINELLI Rep #:[id number] : 1990 34 From: Rupert Hernández MD PCP: MAYCOL Jenkins, ONLINE PROJECT MANAGER-C Statu s:REG ER Location: ED HPI History [...] seeing the ER a couple days ago. [facility] Medical History Gastric reflux Substance abuse Bipolar [...] subarachnoid hemorrhage, or other explanation in the HAT LACER of the focal deficit. My interpretation the [...] waiting according to staff. 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 physician in the [...] 41.9 L Lymph % (Auto) 44.3 H Marathon % (Auto) 9.0 Eos % (Auto) 3.5 [...] 22:12 IMPRESSION: NO ACUTE FINDINGS [facility] Rhythm Strip Rhythm Strip: Sinus arrhythmia Rate: [...] PO QDAY Primary Care Provider: Jennifer Mathur Referrals: Myah Mahoney MD [Med Staff - Active Staff] - As soon as possible Print Language: Afghan Disposition Disposition: Home, Self Care What to do if you have Problems For any increased pain, shortness of breath, bleeding, nausea or vomiting, chestpain, or any unexpected problems, contact your Primary Care Provider. Call [facility] ([phone]) or report tothe closest Emergency Room. Call 911 if necessary. 12/28/24 0123 Cosigner Signature (if applicable): CC: MAYCOL ONLINE PROJECT MANAGER-C Jennifer Mathur ~ Signed [facility]04-19-2025 Radiology Diagnostic study note [facility] Imaging Services [address] [place] [id number] Brain/Head without Contrast MR#: [id number] Acct: [id number] Name: AMADO MARINELLI Rep #: [id number] : 1990 M 34 From: Amador Seay DO PCP: MAYCOL Jenkins, ONLINE PROJECT MANAGER-C Status: REG ER Study:Brain/Head without Contrast Date of Exa m: 12/27/24 Exam# [id number] Ordering Dr: Tiffanie Hernández MD PROCEDURE: BRAIN/HEAD [...] NO ACUTE FINDINGS Reading Location: [facility] CC: [facility] DAILY Mathur; Dr. Rupert Hernández MD ~ Train Control Electronic Technician: Signed [facility]04-19-2025 Discharge summary Author Rupert Hernández [facility] Note Date/Time December 28, 2024 1:2 3am [facility] Medical Records Department [address] [place] [address] Emergency Department Summary 12/27/24 MR#: [id number] Acct: [id number] Name: AMADO MARINELLI Rep #:[id number] : 1990 34 From: Rupert Hernández MD [...] seeing the ER a couple days ago. [facility] Medical History Gastric reflux Substance abuse Bipolar [...] subarachnoid hemorrhage, or other explanation in the HAT LACER of the focal deficit. My interpretation the [...] waiting according to staff. 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 physician in the [...] 41.9 L Lymph % (Auto) 44.3 H Marathon % (Auto) 9.0 Eos % (Auto) 3.5 [...] 22:12 IMPRESSION: NO ACUTE FINDINGS Reading [facility] Rhythm Strip Rhythm Strip: Sinus arrhythmia Rate: [...] 81 mg PO QDAY Primary Care Provider: Jenniefr Mathur [facility] Referrals: Myah Mahoney MD [Med Staff - Active Staff] - As soon as possible Print Language: Afghan Disposition Disposition: Home, Self Care What to do if you have Problems For any increased pain, shortness of breath, bleeding, nausea or vomiting, chestpain, or any unexpected problems, contact your Primary Care Provider. Call [email or web address] [facility] ([phone]) or report to the closest Emergency Room. Call 911 if necessary. 12/28/24 0123 <Electronically signed by Rupert Hernández MD> Cosigner Signature (if applicable): CC: [facility] ONLINE PROJECT MANAGERJude Mathur ~ Signed [facility] Work Phone: 1(609) 838-410303-11-2025 Telephone encounter Note* Telephone Encounter - Bipin Wei, RN - 2024 2:46 PM EDT I [...] thanked me for calling. Bipin Wei RN [facility]03-11-2025 Miscellaneous Notes* Telephone Encounter - Bipin Wei [...] calling. Bipin Wei RN documented in this encounterTrumbull Memorial Hospital03-10-2025 Telephone encounter Note * Telephone Encounter - [...] and that I will forward concerns to HBC RN and Dr. Rivera. Advised pt that we will reach back out with further instructions. Pt understands and agrees toplan. Tex Hartman RN, BSN Bariatric Trust Clerk [facility]03-10-2025 Miscellaneous Notes* Telephone Encounter - Tex Hartman [...] and that I will forward concerns to HBC RN and Dr. Rivera. Advised pt that we will reach back out with further instructions. Pt understands and agrees toplan. Tex Hartman RN, BSN Bariatric Trust Clerk documented in this encounterTrumbull Memorial Hospital03-05-2025 History of Present illness Narrative* Lissa Wiggins, [...] PATIENT PRESENTS WITH AN IMPLANTABLE OR ATTACHED FISHER SWORDFISH: No CREATININE: Creatinine Date Value Ref Range [...] [address] PERFORMED: No IV SITE: [place] only - not applicable, oral or physician administered agents given to patient POST EXAM PIV STATUS: Not applicable PROCEDURE TYPE: NM GET: 1.06 mCi Tc99m SULFUR COLLOID was administered orally via 4 oz egg beaters,2 pieces toast, 8 oz water ADMINISTRATION TIME: 0759 PATIENT DISCHARGED TO: Ambulatory patient, left [place] department area. Is this a therapy: No A Diagnostic radioactive procedure has taken place, with no further precautions necessary other than routine body substance precautions. More information regarding radiation safety can be found usingthis link: [email or web address] 20Diagnostic%20Nuclear%20Medicine%20Procedures.pdf SIGNATURE: RILEY Israel) PATIENT NAME: Amado Marinelli DATE: November 12, 2024 TIME: 8:13 AM PAGER/CONTACT #: documented in this encounterTrumbull Memorial Hospital03-05-2025 NoteHNO ID: [id number] Author: LISSA WIGGINS RT(R) Service: Nuclear Medicine Author Type: Technologist Type: [...] PATIENT PRESENTS WITH AN IMPLANTABLE OR ATTACHED FISHER SWORDFISH: No CREATININE: Creatinine Date Value Ref Range [...] 0759 PATIENT DISCHARGED TO: Ambulatory patient, left [place] department area. Is this a therapy: No A Diagnostic radioactive procedure has taken place, with no further precautions necessary other than routine body substance precautions. More information regarding radiation safety can be found using this link: [email or web address] 20Diagnostic%20Nuclear%20Medicine%20Procedures.pdf SIGNATURE: RT Jhonatan(R) PATIENT NAME: Amado Marinelli DATE: November 12, 2024 TIME: 8:13 AM PAGER/CONTACT #:[facility]02-13-2025 NoteHNO ID: [id number] Author: BIPIN WEI RN Service: ? Author [...] of patient's questions were answered. Bipin Wei [facility]02-13-2025 History of Present illness Narrative* [...] hyperactivity disorder) Bipolar disorder (HCC) Depression [facility], history of suicide attempt Genital herpes 04/2013 Polysubstance abuse (HCC) meth, heroin. Oversoe 07/2019 [facility] Tobacco use disorder PAST SURGICAL HISTORY: PAST [...] 23, 2024 TIME: 2:41 PM PAGER/CONTACT #: [phone] documented in this encounterTrumbull Memorial Hospital02-13-2025 Telephone encounter Note * Telephone Encounter - Parris Marin LPN - 10/23/2024 3:41 PM EST Manometry scheduled for 12/15/2024 at 800am followed by EGD/Fuentes at 900am. Prep/instructions given to patient at checkout. Parris Marin LPN [facility] Work Phone: [phone] Note* Addendum Note - Parris Marin LPN - 10/23/2024 3:41 PM ESTAddended by: PARRIS MARIN on: 10/23/2024 03:41 PM Modules accepted: Orders [facility] Work Phone: 1(570) 907-767402-13-2025 Miscellaneous Notes* Addendum Note - Parris Marin LPN - 10/23/2024 3:41 PM ESTAddended by: PARRIS MARIN on: 10/23/2024 03:41 PM Modules accepted: Orders documented in this encounterTrumbull Memorial Hospital02-13-2025 Miscellaneous Notes* Telephone Encounter - Parris Marin LPN - 10/23/2024 3:41 PM EST Manometry scheduled for 12/15/2024 at 800am followed by EGD/Fuentes at 900am. Prep/instructions given to patient at checkout. Parris Marin LPN documented in this encounterTrumbull Memorial Hospital02-13-2025 NoteHNO ID: [id number] Author: HARRIET RIVERA MD Service: ? Author [...] hyperactivity disorder) Bipolar disorder (HCC) Depression [facility], history of suicide attempt Genital herpes 04/2013 Polysubstance abuse (HCC) meth, heroin. Oversoe 07/2019 [facility] Tobacco use disorder PAST SURGICAL HISTORY: PAST [...] for dysuria, frequency, hematuria (more content not included)...[facility]02-03-2025 Hospital Discharge instructions Patient Education 10/13/2024 09:36:17 [...] you feel better and your symptoms ease. [phone] [employer]. [address] [place] [address]81. All rights reserved. This information is not intended as a substitute for professional medical care. Always follow yourhealthcare professional's instructions. Follow Up Care 10/13/2024 09:25:13 With:LA WAHL DO Address: [address] [place] [phone] When:2-4 days [facility] 02-03-2025 Note Discharge Instructions Thank you for allowing [facility] to assist you with your healthcare needs. The following is importantdischarge information regarding your hospital visit. Diagnosis from Today's Visit Vomiting What to Do Next Instructions from Your Care Team No qualifying data available. Post Acute Orders No qualifying data available. You Need to Schedule the Following Appointments Follow Up with LA WAHL DO When:Within 2-4 days Where:[address] [place] [phone] Allergies penicillin Medications Please ask your primary [...] you feel better and your symptoms ease. 3025-1913 [employer]. [address] [place] [address], [place] [address]. All rights reserved. This information is not intended as a substitute for professional medical care. Always follow yourhealthcare professional's instructions. Additional Information VACCINATE! IT SAVES LIVES! Members of the community who have not yet received the COVID-19 vaccine and would like to receive it can visit one of [facility] vaccine clinics. There are many vaccine clinic locations within the [facility]. For locations and available times, please visit www.[email or web address].[email or web address]/. It is important to note that some COVID mobile vaccine clinics are held outdoors and may be canceled in rainy or stormy conditions. To learn more about pediatric vaccinations (ages 5-11), we invite you to visit the [facility] webpage. https://www.[email or web address].org/pages/5930-Khgcv-Jzukabiywpc-Hehieijvus-Hefds-Lwu stions.htmlTo learn more about the COVID-19 vaccine, we invite you to visit the CDC website for a list of frequently asked questions. https://www.cdc.gov/coronavirus/2019-ncov/vaccines/faq.html [facility] Patient Portal Access Instructions: Stay connected with your healthcare team and access your personal medical information anytime with the [facility] Patient Portal. If you would like a full copy of your medical records please contact the [facility] Medical Records Department Sunday through Sunday between 8a.m. and 4:30p.m. Please follow the directions below to access the portal: 1.Access the email account you provided upon registration to the [facility].2.Look for an invitation email from [facility].3.Open the email and access the invitation link: Accept Invitation to [facility]4.Fill in the required mayer to create your account. Sign into [email or web address] with your username and password that you [...] you will allow to register on the [facility] Patient Portal for access to your information. You can also access the [facility] Patient Portal on the FetchBack marva. Simply click on Health Records under HSTYLE and then click on the [facility] logo. HOW TO SAFELY DISPOSE OF PRESCRIPTION [...] Call your local pharmacy or go to http://Photoways.Flare3d/0N2Sb7c to find one close to you.3.Make use of household items: Use cat litter or old coffee grounds to dispose medications if other options arenot available. Mix your drugs with these household products, seal them in an airtight container andthrow it into the garbage. Call [facility]: [phone] to be sure your drugs can be [...] aware that I should contact my doctor. Patient/Reprographics Associate Signature: Date/Time: Relationship to Patient: Witness Name/Signature: Date/Time: [facility]01-13-2025 Evaluation note* Diagnosis Onset Date Resolution Status Admit Date Status post laparoscopic procedure inactive September 22 10:12am [facility] Work Phone: [phone]) 336-295401-06-2025 [facility] Medical Records Department [address] [facility] [place] [address] History Physical Exam 09/15/24 0702 MR#: [id number] Acct: [id number] Name: MARINELLI,AMADO ROSS Rep #: [id number] : 1990 33 From: Sancho Rodriguez MD PCP: MAYCOL Jeknins, ONLINE PROJECT MANAGER-C Status:[facility] Location: [place] [address] History and Physical Date of Admission: 09/15/24 Intake Vital Signs 07/22/2410:12 08/05/2413:36 Height 6 ft 6 ft Weight: 214 lb BMI 29.0 BP 124/82 H Blood Pressure Location Rt brachial Position Sitting Respiration 16 Intake Visit Reasons: S/P EGD - Chief Complaint: uncontrolled reflux f/u EGD Creative Art Director Required: No Is patient in pain?: No [...] scheduled for surgery. Sancho Rodriguez MD Pager: [facility] [address] [place] [address], [address] [place] [address] Office: (more content not included)...[facility]11-12-2024 [facility] Medical Records Department [address] [place] [address] History Physical Exam 07/22/24 1059 MR#: [id number] Acct: [id number] Name: AMADO MARINELLI Rep #: [id number] : 1990 33 From: Sancho Rodriguez MD PCP: Jennifer Mathur Sang, ONLINE PROJECT MANAGER-C Status:[facility] Location: [place] [address] History and Physical Date of Admission: 07/22/24 [...] proceed with procedure. Sancho Rodriguez MD Pager: [facility] [address] [place] [address], [address] [place] [address] Office: I have e (more content not included)...[facility]11-07-2024 Note HNO ID: [id number] Author: ALFRED MCKEON APRN.GAS APPLIANCE ADJUSTER Service: ? Author Type: Nurse Practitioner Type: [...] ADHD (attention deficit hyperactivity disorder) Bipolar disorder ([facility]) Depression [facility], history of suicide attempt Genital herpes 04/2013 Polysubstance abuse ([facility]) meth, heroin. Oversoe 07/2019 [facility] Tobacco use disorder PAST SURGICAL HISTORY Procedure [...] - PREDNISONE 10 MG TABLET [facility] History of Present illness Narrative* Alfred Mckeon APRN.GAS APPLIANCE ADJUSTER - 07/17/2024 6:23 PM EST Subjective HPI [...] hyperactivity disorder) Bipolar disorder (HCC) Depression [facility], history of suicide attempt Genital herpes 04/2013 Polysubstance abuse (HCC) meth, heroin. Oversoe 07/2019 [facility] Tobacco use disorder PAST SURGICAL HISTORY Procedure [...] - PREDNISONE 10 MG TABLET Alfred Mckeon APRN.GAS APPLIANCE ADJUSTER documented in this encounterTrumbull [facility]07-02-2024 NoteHNO ID: [id number] Author: CELI KEANE PA-C Service: ? Author Type: Physician Saw Operator Type: Progress Notes Filed: 03/11/2024 16:35 Note [...] ADHD (attention deficit hyperactivity disorder) Bipolar disorder ([facility]) Depression [facility], history of suicide attempt Genital herpes 04/2013 Polysubstance abuse ([facility]) meth, heroin. Oversoe 07/2019 [facility] Tobacco use disorder Current Outpatient Medications Medication [...] a ventricular rate of 64 bpm. Normal NE interval. No ST elevation or T wave [...] further with the author for clarification if needed.[facility]07-02-2024 History of Present illness Narrative* Celi Keane [...] ADHD (attention deficit hyperactivity disorder) Bipolar disorder ([facility]) Depression [facility], history of suicide attempt Genital herpes 04/2013 Polysubstance abuse ([facility]) meth, heroin. Oversoe 07/2019 [facility] Tobacco use disorder Current Outpatient Medications Medication [...] a ventricular rate of 64 bpm. Normal NE interval. No ST elevation or T wave [...] for clarification if needed. documented in this encounterTrumbull Memorial Hospital07-02-2024 Instructions* Patient Instructions* Celi Keane PA-C - 03/11/2024 4:27 PM EDT Although your EKG looks okay here in the clinic given you are having off-and-on chest tightness andlimitations of urgent care I do feel like you should be seen in the emergency department where if deemed necessary more advanced blood work and imaging can be done including likely heart enzymes. documented in this encounterTrumbull [facility] Hospital02-14-2024 Discharge summary Author Cheo Short [facility] October 24, 2023 4:16pm Note Date/Time October 24, 2023 2:01pm [facility] Medical Records Department [address] [place] [address] Emergency Department Summary 10/24/23 MR#: [id number] Acct: [id number] Name: AMADO MARINELLI Rep #:[id number] : 1990 32 From: Cheo Short DO [...] want to be evaluated by her social media marketing manager and does not want to have any blood work or urinalysis or any type of testing done. There is currently no available pink slipped here. [facility] Medical History COPD (chronic obstructive pulmonary disease) [...] Does not want evaluation otherwise by social media marketing manager and is refusing blood work and toxicology screen. He clinically looks well and has capacity. Bharathi attempt to get in touch with counselor who saw him earlier today who understand her concerns as at this time I do not have a good reason to hold him against his will. I was able to discuss with social media marketing manager who saw patient in the office today. [...] go somewhere that he would shoot every agricultural extension officer in [place] and the ER physician. Care of patient [...] % (Auto) 61.1 Lymph % (Auto) 24.8 Marathon % (Auto) 10.3 H Eos % (Auto) [...] your Primary Care Provider. Call [facility] ([phone]) or report to the closest Emergency Room. Call 911 if necessary. 10/24/23 1616 <Electronically signed by Cheo Short DO> Cosigner Signature (if applicable): CC: Dr. Dacia Camejo MD ~ Signed [facility] Work Phone: 1(884) 171-471101-30-2024 Hospital Discharge instructions Patient Education 10/09/2023 11:42:21 [...] with a towel. Medicine You can take uvwf-ibv-rknstvr medicine for pain, unless you were given [...] swelling or pus coming from the wound [phone] [employer]. [address] [place] [address]. All rights reserved. This information is not [...] affected hand Decreased movement of the hand 9370-3912 [employer]. [address] [place] [address], [place] [address]. All rights reserved. This information is not intended as a substitute for professional medical care. Always follow [facility] hospitalcare professional's instructions. Follow Up Care 10/09/2023 10:19:48 With:Your hand surgeon Address:Unknown When:2-4 days Comments:Follow-up as neededWash daily and apply antibiotic ointmentHave sutures removed in 12 to 14 daysFollow-up for reevaluation for foreign body if you continue to have any discomfort or any signs of infection With:DACIA CAMEJO Address: [address] [place] [address] [facility] (1) When:2-4 days [facility] 01-30-2024 Note Discharge Instructions Thank you for allowing [facility] to assist you with your healthcare needs. [...] DACIA CAMEJO When Within 2-4 days Where: [address] [place] [address]- [facility] (1) Allergies penicillin Medications Please [...] may report side effects to FDA at 6-128-WQD-8698. What other drugs will affect cephalexin? Tell your doctor about all your other medicines, especially: metformin; or probenecid. This list is not complete. Other drugs may affect cephalexin, including prescription and gdyr-vnu-pprqnxi medicines, vitamins, and herbal products. Not all [...] to ensure that the information provided by [employer]. ('[employer]') is accurate, up-to-date, and complete, but no guarantee is made to that effect. Drug information contained herein may be time sensitive. [employer] information has been compiled for use by healthcare practitioners and consumers in the [place] and therefore [employer] does not warrant that uses outside of the [place] are appropriate, unless specifically indicated otherwise. [employer] drug information does not endorse drugs, diagnose patients or recommend therapy. [employer] drug information isan informational resource designed to [...] effective or appropriate for any given patient. [employer] does not assume any responsibility for any aspect of healthcare administered with the aid of information [employer] provides. The information contained herein is not intended to cover all possible uses, directions, precautions, warnings, drug interactions, allergic reactions, or adverse effects. If you have questions about the drugs you are taking, check with your doctor, nurse or pharmacist. Copyright 3753-2235 [employer]. Version: 12.. Revision Date: 04/11/2023. Education Materials Foreign Object [...] with a towel. Medicine You can take gabz-cbu-ibeysbj medicine for pain, unless you were given [...] swelling or pus coming from the wound 9306-7287 [employer]. [address] [place] [address]. All rights reserved. This information is not [...] affected hand Decreased movement of the hand 1314-5121 [employer]. [address] [place] [address]. All rights reserved. This information is not intended as a substitute for professional medical care. Always follow yourhealthcare professional's instructions. Additional Information VACCINATE! IT SAVES LIVES! Members of the community who have not yet received the COVID-19 vaccine and would like to receive it can visit one of [facility] vaccine clinics. There are many vaccine clinic locations within the [facility]. For locations and available times, please visit www.gettheshot.coronavirus.[place].gov/. It is important to note that some COVID mobile vaccine clinics are held outdoors and may be canceled in rainy or stormy conditions. To learn more about pediatric vaccinations (ages 5-11), we invite you to visit the [facility] webpage. https://www.[facility].org/pages/3216-Geuxz-Ppucavhlsmh-Jvfqsvlssx-Ujwgv-Fzh stions.htmlTo learn more about the COVID-19 vaccine, we invite you to visit the CDC website for a list of frequently asked questions. https://www.cdc.gov/coronavirus/2019-ncov/vaccines/faq.html [facility] Patient Portal Access Instructions: Stay connected with your healthcare team and access your personal medical information anytime with the [facility] Patient Portal. If you would like a full copy of your medical records please contact the [facility] Medical Records Department Sunday through Sunday between 8a.m. and 4:30p.m. Please follow the directions below to access the portal: 1.Access the email account you provided upon registration to the [facility].2.Look for an invitation email from [facility].3.Open the email and access the invitation link: Accept Invitation to [facility]4.Fill in the required mayer to create your account. Sign into [email or web address] with your username and password that you [...] you will allow to register on the [facility] Patient Portal for access to your information. You can also access the [facility] Patient Portal on the FetchBack marva. Simply click on Health Records under Ro[employer] and then click on the [facility] logo. HOW TO SAFELY DISPOSE OF PRESCRIPTION [...] Call your local pharmacy or go to http://bit.Flare3d/8H8Jc9h to find one close to you.3.Make use of household items: Use cat litter or old coffee grounds to dispose medications if other options arenot available. Mix your drugs with these household products, seal them in an airtight container andthrow it into the garbage. Call [facility]: [phone] to be sure your drugs can be [...] aware that I should contact my doctor. Patient/Reprographics Associate Signature: Date/Time: Relationship to Patient: Witness Name/Signature: Date/Time: [facility]01-30-2024 Note ORIGINAL EXAMINATION: THREE XRAY VIEWS OF [...] Sign Date: 10/09/2023 11:35:44 AM Ordering Provider: [facility]01-30-2024 Note ORIGINAL EXAMINATION: THREE XRAY VIEWS OF [...] Date: 10/09/2023 11:30:43 AM Ordering Provider: [facility]10-03-2023 Miscellaneous Notes* Telephone Encounter - Priscilla Whitehead LPN - 06/12/2023 9:42 AM EDT Left message for patient with negative results and recommendations.Priscilla Whitehead LPN * Telephone Encounter - Kenna Morrell MA - 06/10/2023 9:12 AM EDT Left message for pt to call back. Kenna Morrell MA * Telephone Encounter - Kenna Morrell MA - 06/10/2023 8:34 AM EDT ----- Message from Araceli Sim APRN.GAS APPLIANCE ADJUSTER sent at 06/10/2023 8:11 AM EDT ----- Please advise patient: You tested negative for COVID and Influenza. If you were tested because you were having symptoms, please monitor these symptoms and for any worrisome symptoms, please call yourprimary care provider or schedule a visit with [facility]. Araceli Sim APRN.GAS APPLIANCE ADJUSTER documented in this encounterTrumbull [facility] Hospital10-01-2023 Miscellaneous Notes* Telephone Encounter - Obdulia Patel RN - 06/10/2023 1:59 PM EDT Reason for Call: Vomiting. Patient was just seen yesterday and given Amoxicillin for sinus infection. The vomiting started today. Outcome: Patient has no pcp. Advised to be seen within the next 24 hours. He states he will return to [facility]. Reason for Disposition Vomiting a prescription [...] pain level. Worse when standing. Protocols used: Ognbpivl-LTCFD-GX documented in this encounterTrumbull Memorial Hospital09-30-2023 History of Present illness Narrative* Adolfo Zepeda [...] ROUTINE Adolfo Zepeda MD documented in this encounterTrumbull Memorial Hospital09-16-2023 Discharge summary Author Juancho Holley [facility] May 26, 2023 9:12pm Note Date/Time May 26, 2023 9:12pm [facility] Medical Records Department [address] [place] [address] Emergency Department Summary 05/26/23 MR#: [id number] Acct: [id number] Name: AMADO MARINELLI Rep #:[id number] : 1990 32 From: Juancho Holley MD [...] pain. Nebulizers have not helped so far [facility] Medical History COPD (chronic obstructive pulmonary disease) Home Medications prednisone 20 mg tablet 60 mg (3 x 20 mg) PO DAILY #15 TABLETS 09/16/23 [Rx Last Taken Unknown] Allergy/AdvReac Type Severity [...] % (Auto) 57.0 Lymph % (Auto) 31.3 Marathon % (Auto) 8.1 Eos % (Auto) 2.5 [...] Signed: Kady Peña MD at 19:51 EDT , Discharge Plan Triage Chief Complaint: Shortness [...] your Primary Care Provider. Call [facility] ([phone]) or report to the closest Emergency Room. Call 911 if necessary. 05/26/232111 <Electronically signed by Juancho Holley MD> Cosigner Signature (if applicable): CC: Dr. Dacia Camejo MD ~ Signed [facility] Work Phone: 1(436) 520-127308-26-2023 Discharge summary Author Luther San [facility] May 05, 2023 10:43pm Note Date/Time May 05, 2023 9: 23pm [facility] Medical Records Department [address] [place] [address] Emergency Department Summary 05/05/23 MR#: [id number] Acct: [id number] Name: AMADO MARINELLI Rep #:[id number] : 1990 32 From: Luther San MD [...] or chills. Patient denies any sick contacts. [facility] <DAILY Barcenas - Last Filed: 05/05/23 22:02> [facility] Medical History (Updated 05/05/23 @ 22:[address] Luther San MD) COPD (chronic obstructive pulmonary disease) Home Medications NK 05/05/23 [History Last Taken Unknown] Allergy/AdvReac Type Severity Reaction Status Date / Time Penicillins Allergy Hives Verified 05/05/23 21:03 ibuprofen AdvReac Nausea Verified 05/05/23 21:03 Social History Smoking Status: Current every day smoker tobacco type: cigarettes ROS <Yehuda OlveraDAILY - Last Filed: 05/05/23 22:02> ROS ED [...] Negative for any eczema, hives, rash EXAM <Yehuda EarleDAILY tan - Last Filed: 05/05/23 22:02> Physical Exam [...] <DAILY Barcenas - Last Filed: 05/05/23 22:02> [facility] Treatment and Re-Evaluation :: Patient appears generally [...] San MD - Last Filed: 05/05/23 22:44> [facility] Narrative Medical decision making narrative: I have personally performed a face to face assessment of the patient and have reviewed the MARVA Note. I performed a substantive portion of the visit including all aspects of the following. My amaro findings include: History is 32-year-old male complaint sore throat. Able to swallow. Complaining primarily of pain. Evaluated patient with our ONLINE PROJECT MANAGER. Exam is [32-year-old male vital signs stable [...] your Primary Care Provider. Call [facility] ([phone]) or report to the closest Emergency Room. Call 911 if necessary. 05/05/232242 <Electronically signed by Luther San MD> Cosigner Signature (if applicable): CC: Dr. Gelacio Elliott MD ~ Signed [facility] Work Phone: 1(384) 159-654807-10-2023 Hospital Discharge instructions Patient Education 03/18/2023 23:15:40 [...] t able to do your daily activities 4195-1470 [employer]. [address] [place] [address], [place] [address]. All rights reserved. This information is not intended as a substitute for professional medical care. Always follow yourhealthcare professional's instructions. Follow Up Care 03/18/2023 21:36:39 With:[facility], Address: When:2-4 days With:DACIA CAMEJO MD Address: [address] [place] [address]- When:2-4 days [facility] Note Discharge Instructions Thank you for allowing [facility] to assist you with your healthcare needs. [...] the Following Appointments Follow Up with [facility], When Within 2-4 days Where: Follow Up with DACIA CAMEJO MD When Within 2-4 days Where: [address] [place], [place] [id number]- Allergies penicillin Medications Please ask your primary [...] t able to do your daily activities 9560-7449 [employer]. [address] [place] [address]. All rights reserved. This information is not intended as a substitute for professional medical care. Always follow yourhealthcare professional's instructions. Additional Information VACCINATE! IT SAVES LIVES! Members of the community who have not yet received the COVID-19 vaccine and would like to receive it can visit one of [facility] vaccine clinics. There are many vaccine clinic locations within the [facility]. For locations and available times, please visit www.gettheshot.coronavirus.[place].gov/. It is important to note that some COVID mobile vaccine clinics are held outdoors and may be canceled in rainy or stormy conditions. To learn more about pediatric vaccinations (ages 5-11), we invite you to visit the [facility] webpage. https://www.[facility].org/pages/0932-Pfvyk-Zngxunmjmyc-Tyckwbllpi-Xdimn-Puw stions.htmlTo learn more about the COVID-19 vaccine, we invite you to visit the CDC website for a list of frequently asked questions. https://www.cdc.gov/coronavirus/2019-ncov/vaccines/faq.html [facility] Patient Portal Access Instructions: Stay connected with your healthcare team and access your personal medical information anytime with the [facility] Patient Portal. If you would like a full copy of your medical records please contact the [facility] Medical Records Department Sunday through Sunday between 8a.m. and 4:30p.m. Please follow the directions below to access the portal: 1.Access the email account you provided upon registration to the [facility].2.Look for an invitation email from [facility].3.Open the email and access the invitation link: Accept Invitation to [facility]4.Fill in the required mayer to create your account. Sign into [email or web address] with your username and password that you [...] you will allow to register on the [facility] Patient Portal for access to your information. You can also access the [facility] Patient Portal on the [facility] [employer]. Simply click on Health Records under HSTYLE and then click on the Hub[employer] logo. HOW TO SAFELY DISPOSE OF PRESCRIPTION [...] Call your local pharmacy or go to http://bit.Flare3d/6N8Jt4e to find one close to you.3.Make use of household items: Use cat litter or old coffee grounds to dispose medications if other options arenot available. Mix your drugs with these household products, seal them in an airtight container andthrow it into the garbage. Call [facility]: [phone] to be sure your drugs can be [...] been reviewed and explained to me and IIRENE COREY J understand my current condition and have read and understand these discharge instructions. I have received a written copy of the plan/instructions. If I have questions, I am aware that I should contact my doctor. Patient/Reprographics Associate Signature: Date/Time: Relationship to Patient: Witness Name/Signature: Date/Time: [facility]07-09-2023 Note ORIGINAL EXAMINATION: TWO XRAY VIEWS OF [...] Sign Date: 03/18/2023 11:06:44 PM Ordering Provider: [facility]07-09-2023 Note ORIGINAL EXAMINATION: TWO XRAY VIEWS OF [...] Sign Date: 03/18/2023 11:06:44 PM Ordering Provider: [facility]05-01-[address] Martinez [facility] January 08, 2023 7:45pm Note Date/Time January 08, 2023 6:26pm [facility] Medical Records Department [address] [place] [address] Emergency Department Summary 01/08/23 MR#: [id number] Acct: [id number] Name: AMADO MARINELLI Rep #:[id number] : 1990 32 From: Jorge L Martinez [...] his mouth. No exacerbating or alleviating factors. [facility] Medical History (Updated 01/08/23 @ 19:43 by [...] % (Auto) 53.2 Lymph % (Auto) 32.1 Marathon % (Auto) 10.6 H Eos % (Auto) [...] Gelacio Elliott MD [Primary Care Provider] - Friend,Trung, DO [Med Staff - Active Staff] - As soon as possible Activity Restrictions/Additional Instructions: Stop smoking. Avoid NSAID use. Take medication as prescribed. Disposition Disposition: Home, Self Care What to do if you have Problems For any increased pain, shortness of breath, bleeding, nausea or vomiting, chestpain, or any unexpected problems, contact your Primary Care Provider. Call [facility] ([phone]) or report to the closest Emergency Room. Call 911 if necessary. 01/08/231944 <Electronically signed by Jorge L Martinez MD> Cosigner Signature (if applicable): CC: Dr. Gelacio Elliott MD ~ Signed [facility] Work Phone: [phone] [phone] Hospital Discharge instructions* Discharge Instructions* Kyra Nguyen [...] Everywhere. * Pleurisy (Afghan) [facility] Phone: Evaluation + Plan note No data available for this section [facility] Evaluation noteNo assessment information available [facility] Work Phone: Evaluation note* Diagnosis Pleurisy- Primary Pleurisy without mention of effusion or current tuberculosis documented in this encounter [facility] Work Phone: Evaluation note* Diagnosis Influenza-like illness- Primary Influenza with other respiratory manifestations Acute non-recurrent sinusitis, unspecified location [facility] Diagnosis Chest tightness- Primary Other chest pain [facility] Diagnosis Sinobronchitis- Primary Unspecified sinusitis (chronic) Exposure to pneumonia Contact with or exposure to other viral diseases History of COPD Personal history of other diseases of respiratory system [facility] Diagnosis Gastroesophageal reflux disease, unspecified whether esophagitis present- Primary Nausea Nausea alone Tobacco use disorder Polysubstance abuse (HCC) Other, mixed, or unspecified nondependent drug abuse, unspecified Bipolar affective disorder, remission status unspecified (HCC) documented in this encounter [facility] note* Diagnosis Nausea Nausea alone Gastroesophageal reflux disease, unspecified whether esophagitis present documented in this encounter [facility] note* Diagnosis Pre-op examination- Primary Preoperative [...] in today's visit. documented in this encounter [facility] note* Diagnosis Pre-op examination- Primary Preoperative examination, unspecified Gastroesophageal reflux disease, unspecified whether esophagitis present Pre-op examination Preoperative examination, unspecified Tobacco use disorder Mild intermittent asthma without complication (HCC) Unspecified asthma Tobacco use disorder Asthma (HCC) Unspecified asthma Gastroesophageal reflux disease, unspecified whether esophagitis present documented in this encounter [facility] note* Diagnosis Pre-op examination- Primary Preoperative [...] unspecified Bipolar affective disorder, remission status unspecified ([facility]) documented in this encounter [facility] note* Diagnosis Abdominal pain, epigastric- Primary Nausea and vomiting, unspecified vomiting type documented in this encounter [facility] Work Phone: Evaluation note* Diagnosis Epigastric pain- Primary Abdominal pain, epigastric documented in this encounter [facility] Work Phone: Hospital Discharge instructions Additional Instructions Stop smoking. Avoid NSAID use. Take medication as prescribed.[facility] Work Phone: Hospital Discharge instructions* Attachments The following attachments cannot be sent through Care Everywhere. * Nausea and Vomiting, Adult ED (Afghan) * Abdominal Pain, Adult ED (Afghan) [facility]: Hospital Discharge instructions* Attachments The following attachments cannot be sent through Care Everywhere. * Abdominal Pain, Adult ED (Afghan) [facility] Work Phone: Reason for referral (narrative)* Outpatient Procedure (Routine) - Pending Review Specialty Diagnoses / Procedures Referred By Kallie t Referred To Contact [facility] Diagnoses Chest tightness Procedures ECG COMPLETE ECG ROUTINE ECG W/LEAST 12 LDS W/I&R Celi Keane PA-C [address] [place] [address] [facility] [place] [address] [place] [address] Referral ID Status Reason Start Date Expiration Date Visits Requested Visits Authorized [id number] Pending Review Auto-Generat ed Referral 03/11/2024 03/11/2025 1 1 [facility] for referral (narrative)No reason for referral information [facility] Work Phone: Reason for visit Narrative* Diagnostic Procedure Only (Routine) - Closed Specialty Diagnoses / Procedures Referred By Kallie boone Referred To Contact [facility] Diagnoses Nausea Procedures NM GASTRIC EMPTYING SOLID GASTRIC EMPTYING STUDY Harriet Rivera MD [address] [address] Phone: tel: fax: [facility] [address] [place] [address] Phone: tel: Referral ID Status Reason Start Date Expiration Date V isits Requested Visits Authorized [id number] Closed Auto-Generate d Referral 11/04/2024 09/09/2025 1 1 [facility] for visit Narrative* Auth/Cert (Routine) Specialty Diagnoses / Procedures Referred By Kallie boone Referred To Contact Diagnoses Gastroesophageal reflux disease, unspecified whether esophagitis present Gastroesophageal reflux disease, unspecified whether esophagitis present [K21.9] Procedures ESOPHAGEAL MOTILITY STUDY W/INTERP&RPT ESOPHAGEAL MANOMETRY [facility] [address] [place] [address] Referral ID Status Reason Start Date Expiration Date Visits Re quested Visits Authorized [id number] 1 1 [facility] for visit Narrative* Outpatient Procedure (Routine) - Closed Specialty Diagnoses / Procedures Referred By Kallie t Referred To Contact [facility] Diagnoses Gastroesophageal reflux disease, unspecified whether esophagitis present Procedures EGD - THERAPEUTIC, EUS, OR TUBE INTERVENTIONS EGD - THERAPEUTIC, EUS, OR TUBE INTERVENTIONS ESOPHAGOGASTRODUODENOSC OPY TRANSORAL DIAGNOSTIC Harriet Rivera MD [address] [facility] [address] [place] [address] Phone: tel: fax: [facility] [address] [place] [address] Referral ID Status Reason Start Date Expiration Date V isits Requested Visits Authorized [id number] Closed Auto-Generate d Referral 10/23/2024 10/23/2025 1 1 [facility] for visit Narrative* Diagnostic Procedure Only (Routine) - Closed Specialty Diagnoses / Procedures Referred By Contac t Referred To Contact [facility] Diagnoses Gastroesophageal reflux disease, unspecified whether esophagitis present Procedures XR ESOPHAGRAM RADIOLOGIC EXAM ESOPHAGUS SINGLE CONTRAST STUDY Harriet Rivera MD [address] [address] Phone: tel: fax: [place] [address] Referral ID Status Reason Start Date Expiration Date V isits Requested Visits Authorized [id number] Closed Auto-Generate d Referral 10/23/2024 11/22/2025 1 1 [facility] Summary Purpose Family History No Family [...] FoundDocuments on File Type Date Recorded Patient Reprographics Associate Expl anation Advance Directives and Living Will Power of Power Reactor Supervisor Documents on File Type Date Recorded Patient Reprographics Associate Expl anation ACP-Advance Directive ACP-Power of Power Reactor Supervisor Documents on File Type Date Recorded Patient Reprographics Associate Expl anation ACP-Advance Directive ACP-Power of Power Reactor Supervisor Advance Directive Response Recorded Date/ Time Advance Directives No May 2:13pm Living Will No April 01, 2022 7:36pm Power of Power Reactor Supervisor No April 01 7:36pm Advance Directive Response Recorded Date/ Time Advance Directives No May 2:13pm Living Will No January 08, 2023 6: 21pm Power of Power Reactor Supervisor No January 08, 2023 6:21pm Advance Directive Response Recorded Date/ Time Advance Directives No May 2:13pm Living Will No May 05 9:18pm Power of Power Reactor Supervisor No May 05, 2 023 9:18pm Advance Directive Response Recorded Date/ Time Advance Directives No May 2:13pm Living Will No May 26, 2023 6:53pm Power of Power Reactor Supervisor No May 6:53pm Advance Directive Response Recorded Date/ Time Advance Directives No May 1:13pm Living Will No October 17 11:15am Power of Power Reactor Supervisor No October 17, 2023 11:15am Advance Directive Response Recorded Date/ Time Advance Directives No May 1:13pm Living Will No October 24 024 1:39pm Power of Power Reactor Supervisor No October 24, 2023 1:39pm Advance Directive Response Recorded Date/ Time Living Will No August 29 024 3:50pm Do you have a Healthcare Power of Power Reactor Supervisor? No August 29, 2024 3:50pm Living Will No September 17 12:20pm Do you have a Healthcare Power of Power Reactor Supervisor? No September 17, 2024 12:20pm Living Will No December 27, 2024 9:57pm Do you have a Healthcare Power of Power Reactor Supervisor? No December 27, 2024 9:57pm Advance Directives No May 2:13pm Advance Directive Response Recorded Date/ Time Living Will No December 27, 2024 9:57pm Do you have a Healthcare Power of Power Reactor Supervisor? No December 27, 2024 9:57pm Advance Directives No May 2:13pm Advance Directive Response Recorded Date/ Time Do you have a Healthcare Power of Power Reactor Supervisor? No April 21, 2025 12:02am Living Will No December 27, 2024 9:57pm Do you have a Healthcare Power of Power Reactor Supervisor? No December 27, 2024 9:57pm Advance Directives [...] (Afghan) documented in this encounter* Instructions* [place] [...] fingers, initial encounter La Dorado MD [address] [place] [address] [facility] Maria Eugenia [address] [address] Scheduling Instructions [facility] Maria Eugenia [facility] [address] [place] [id number] Chief Complaint and Reason for Visit Chief [...] Visit Admit Date Status post laparoscopic procedure Jangregg ry 2024 10:12am Chief Complaint Admit Date SYNCOPE,BARRIOS December 27, 2024 9:4 4pm UPPER February 09, 2025 4:23p m Chief Complaint Admit Date SYNCOPE,BARRIOS December 27, 2024 9:4 4pm UPPER February 09, 2025 4:23p m rash April 21, 2025 12 :00am Additional Source Comments (unrecognized sect ion and content) No Status Records FoundNo Status Records FoundNo Status Records FoundNo Status Records FoundNo Status Records FoundNo Status Records FoundNo Status Records FoundNo Status Records FoundNo Status Records FoundNo Status Records FoundNo Status Records FoundNo Status Records FoundNo Status Records Found INFORMATION SOURCE (unrecogn ized section and content) DATE CREATED AUTHOR 11/23/2018 [facility] DATE CREATED AUTHOR AUTHOR'S ORGANIZ ATION 09/28/2020 [facility] DATE CREATED AUTHOR AUTHOR'S ORGANIZ ATION 07/03/2022 [facility] DATE CREATED AUTHOR AUTHOR'S ORGANIZ ATION 07/22/2022 [facility] DATE CREATED AUTHOR AUTHOR'S ORGANIZ ATION 11/25/[address] [facility] ([place]) DATE CREATED AUTHOR AUTHOR'S ORGANIZ ATION 03/16/2024 [facility] DATE CREATED AUTHOR AUTHOR'S ORGANIZ ATION 02/11/2025 [facility] DATE CREATED AUTHOR AUTHOR'S ORGANIZ ATION 03/18/2025 [facility] DATE CREATED AUTHOR AUTHOR'S ORGANIZ ATION 04/17/2025 [facility] DATE CREATED AUTHOR AUTHOR'S ORGANIZ ATION 04/24/2025 [facility] DATE CREATED AUTHOR AUTHOR'S ORGANIZ ATION 04/27/2025 [facility] DATE CREATED AUTHOR AUTHOR'S ORGANIZ ATION 05/29/2025 [facility] DATE CREATED AUTHOR AUTHOR'S ORGANIZ ATION 06/19/2025 [facility] Reason for Visit (unrecogniz ed section and content) Reason Comments Dental Pain Reason Comments Hand Injury Reason Comments Hand Injury Reason Comments Arm Pain forearm/elbow Reason Comments Insect Bite pt. reports he was b it by a spider 2 days ago on palm of hand Reason Comments Shortness of Breath Pt came in from [place] through EMS with SOB. 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 Reports hx of hiatal hernia with surgery [...] may be documented in an alternate section Care Teams (unrecognized sec tion and content) Team Status: Active Member Role Status Dates Jennifer WRENC, ONLINE PROJECT MANAGER-C Primary Care Provider Activ e Team Status: Inactive Member Role Status Dates Jennifer HOLLAND, ONLINE PROJECT MANAGER-C Primary Care Provider Activ e Start: December [...] Inactive Member Role Status Dates Jennifer HOLLAND, ONLINE PROJECT MANAGER-C Primary Care Provider Activ e Start: February 09, 2025 End: February 09, 2025 Ed Physician Provider Emergency Provider Active Start: February 09, 2025 End: February 09, 2025 Team Status: Active Member Role Status Dates Dr. Gelacio Elliott MD Family Provider Active Dr. Gelacio Elliott MD Primary Care Provider Acti ve Team Status: Inactive Member Role Status Dates [...] Dr. Cheo Short DO Emergency Provider Active Junior Copywriter Relationship Specialty Start Date End Date Dacia Camejo [address] [place] [address] PCP - General Family Medicine 03/14/24 Junior Copywriter Relationship Specialty Start Date End Date Dacia Camejo [address] [place] [address] PCP - General Family Medicine 03/14/24 Junior Copywriter Relationship Specialty Start Date End Date Dacia Camejo [address] [place] [address] PCP - General Family Medicine 03/14/24 Junior Copywriter Relationship Specialty Start Date End Date Dacia Camejo [address] [place] [address] PCP - General Family Medicine 03/14/24 Junior Copywriter Relationship Specialty Start Date End Date Dacia Camejo [address] [place] [address] PCP - General Family Medicine 03/14/24 Team Status: Active Member Role Status Dates Jennifer HOLLAND, ONLINE PROJECT MANAGER-C Primary Care Provider Activ e Start: September 02, 2024 End: September 02, 2024 Dr. Gabriel Arreola MD Attending Provider Active S tart: September 02, 2024 End: September 02, 2024 Dr. Sancho Rodriguez MD Referring Provider Active Start: September 02, 2024 End: September 02, 2024 Team Status: Inactive Member Role Status Dates Jennifer Kevan WRENC, ONLINE PROJECT MANAGER-C Primary Care Provider Activ e Start: September 15, 2024 End: September 15, 2024 Dr. Sancho Rodriguez MD Attending Provider Active Start: September 15, 2024 End: September 15, 2024 Dr. Sancho Rodriguez MD Referring Provider Active Start: September 15, 2024 End: September 15, 2024 Team Status: Active Member Role Status Dates Jennifersukh WRENC, ONLINE PROJECT MANAGER-C Primary Care Provider Activ e Start: September 15, 2024 Dr. Sancho Rodriguez MD Attending Provider Active Start: September 15, 2024 Dr. Sancho Rodriguez MD Referring Provider Active Start: September 15, 2024 Dr. Sancho Rodriguez MD Other Provider Active Start: September 15, 2024 Team Status: Inactive Member Role Status Dates Jennifer Kevan WRENC, ONLINE PROJECT MANAGER-C Primary Care Provider Activ e Start: September 17, 2024 End: September 17, 2024 Dr. Luther San MD Attending Provider Active S tart: September 17, 2024 End: September 17, 2024 Dr. Luther San MD Emergency Provider Active S tart: September 17, 2024 End: September 17, 2024 Team Status: Inactive Member Role Status Dates Jennifer Kevan WRENC, ONLINE PROJECT MANAGER-C Primary Care Provider Activ e Start: September 22, 2024 End: September 22, 2024 Jennifer Kevan VSC, ONLINE PROJECT MANAGER-C Referring Provider Active Start: September 22, 2024 End: September 22, 2024 Leisa WATERMAN PA-C Attending Provider Active Start: September 22, 2024 End: September 22, 2024 Team Status: Inactive Member Role Status Dates Jennifersukh WRENC, ONLINE PROJECT MANAGER-C Primary Care Provider Activ e Start: December 27, 2024 End: December 28, 2024 Dr. Rupert Hernández MD Referring Provider Active Start: December 27, 2024 End: December 28, 2024 Dr. Rupert Hernández MD Emergency Provider Active Start: December 27, 2024 End: December 28, 2024 Junior Copywriter Relationship Specialty Start Date End Date Dacia Camejo [address] [place] [address] PCP - General Family Medicine 03/14/24 Junior Copywriter Relationship Specialty Start Date End Date Dacia Camejo [address] [place] [address] PCP - General Family Medicine 03/14/24 Junior Copywriter Relationship Specialty Start Date End Date Dacia Camejo [address] [place] [address] PCP - General Family Medicine 03/14/24 Junior Copywriter Relationship Specialty Start Date End Date Dacia Camejo [address] [place] [address] PCP - General Family Medicine 03/14/24 Junior Copywriter Relationship Specialty Start Date End Date Dacia Camejo [address] [place] [address] PCP - General Family Medicine 03/14/24 Junior Copywriter Relationship Specialty Start Date End Date Dacia Camejo [address] [place] [address] PCP - General Family Medicine 03/14/24 Junior Copywriter Relationship Specialty Start Date End Date Dacia Camejo [address] [place] [address] PCP - General Family Medicine 03/14/24 Junior Copywriter Relationship Specialty Start Date End Date Dacia Camejo [address] [place] [address] PCP - General Family Medicine 03/14/24 Junior Copywriter Relationship Specialty Start Date End Date Dacia Camejo [address] [place] [address] PCP - General Family Medicine 03/14/24 Junior Copywriter Relationship Specialty Start Date End Date Dacia Camejo [address] [place] [address] PCP - General Family Medicine 03/14/24 Junior Copywriter Relationship Specialty Start Date End Date Dacia Camejo [address] [place] [address] PCP - General Family Medicine 03/14/24 Junior Copywriter Relationship Specialty Start Date End Date Generic Provider, [place] [address] PCP - General Gore Cutter 03/20/25 Junior Copywriter Relationship Specialty Start Date End Date Dacia Camejo [address] [place] [address] PCP - General Family Medicine 03/14/24 Junior Copywriter Relationship Specialty Start Date End Date Generic Provider, [place] [address] PCP - General Gore Cutter 03/20/25 Team Status: Active Member Role/Relationship Status Dates Jennifer HOLLAND, ONLINE PROJECT MANAGER-C Primary Care Provider Activ e Team Status: Inactive Member Role/Relationship Status Dates Jennifer HOLLAND, ONLINE PROJECT MANAGER-C Primary Care Provider Activ e Start: December 27, 2024 End: December 28, 2024 Dr. Rupert Hernández MD Attending Provider Active Start: December 27, 2024 End: December 28, 2024 Dr. Rupert Hernández MD Referring Provider Active Start: December 27, 2024 End: December 28, 2024 Dr. Rupert Hernández MD Emergency Provider Active Start: December 27, 2024 End: December 28, 2024 Team Status: Inactive Member Role/Relationship Status Dates Jennifer Mathur VSC, ONLINE PROJECT MANAGER-C Primary Care Provider Activ e Start: February 09, 2025 End: February 09, 2025 Ed Physician Provider Attending Provider Active Start: February 09, 2025 End: February 09, 2025 Ed Physician Provider Emergency Provider Active Start: February 09, 2025 End: February 09, 2025 Team Status: Inactive Member Role/Relationship Status Dates Jennifer Mathur VSC, ONLINE PROJECT MANAGER-C Primary Care Provider Activ e Start: April 21, 2025 End: April 21, 2025 Dr. César Huerta , DO Emergency Provider Active Start: April 21, 2025 End: April 21, 2025 Source Comments (unrecognize d section and content) In the event this informatio n is protected by the Federal Confidentiality of Alcohol and Drug Abuse Patient Records regulations: The Federal rules restrict any use of the information to criminally investigate or prosecute any alcohol or drug abuse patient.[facility] the event this information is protected by the Federal Confidentiality of Alcohol and Drug Abuse Patient Records regulations: The Federal rules restrict any use of the information to criminally investigate or prosecute any alcohol or drug abuse patient.[facility] the event this information is protected by the Federal Confidentiality of Alcohol and Drug Abuse Patient Records regulations: The Federal rules restrict any use of the information to criminally investigate or prosecute any alcohol or drug abuse patient.[facility] the event this information is protected by the Federal Confidentiality of Alcohol and Drug Abuse Patient Records regulations: The Federal rules restrict any use of the information to criminally investigate or prosecute any alcohol or drug abuse patient.[facility] the event this information is protected by the Federal Confidentiality of Alcohol and Drug Abuse Patient Records regulations: The Federal rules restrict any use of the information to criminally investigate or prosecute any alcohol or drug abuse patient.[facility] the event this information is protected by the Federal Confidentiality of Alcohol and Drug Abuse Patient Records regulations: The Federal rules restrict any use of the information to criminally investigate or prosecute any alcohol or drug abuse patient.[facility] Hospital[facility] the event this information is protected by the Federal Confidentiality of Alcohol and Drug Abuse Patient Records regulations: The Federal rules restrict any use of the information to criminally investigate or prosecute any alcohol or drug abuse patient.[facility] the event this information is protected by the Federal Confidentiality of Alcohol and Drug Abuse Patient Records regulations: The Federal rules restrict any use of the information to criminally investigate or prosecute any alcohol or drug abuse patient.[facility] the event this information is protected by the Federal Confidentiality of Alcohol and Drug Abuse Patient Records regulations: The Federal rules restrict any use of the information to criminally investigate or prosecute any alcohol or drug abuse patient.[facility] Hospital[facility] the event this information is protected by the Federal Confidentiality of Alcohol and Drug Abuse Patient Records regulations: The Federal rules restrict any use of the information to criminally investigate or prosecute any alcohol or drug abuse patient.[facility] Hospital[facility] the event this information is protected by the Federal Confidentiality of Alcohol and Drug Abuse Patient Records regulations: The Federal rules restrict any use of the information to criminally investigate or prosecute any alcohol or drug abuse patient.[facility] Hospital[facility] the event this information is protected by the Federal Confidentiality of Alcohol and Drug Abuse Patient Records regulations: The Federal rules restrict any use of the information to criminally investigate or prosecute any alcohol or drug abuse patient.[facility] Hospital[facility] the event this information is protected by the Federal Confidentiality of Alcohol and Drug Abuse Patient Records regulations: The Federal rules restrict any use of the information to criminally investigate or prosecute any alcohol or drug abuse patient.[facility] Hospital[facility] the event this information is protected by the Federal Confidentiality of Alcohol and Drug Abuse Patient Records regulations: The Federal rules restrict any use of the information to criminally investigate or prosecute any alcohol or drug abuse patient.[facility] HospitalIn the event this information is protected by the Federal Confidentiality of Alcohol and Drug Abuse Patient Records regulations: The Federal rules restrict any use of the information to criminally investigate or prosecute any alcohol or drug abuse patient.[facility] HospitalIn the event this information is protected by the Federal Confidentiality of Alcohol and Drug Abuse Patient Records regulations: The Federal rules restrict any use of the information to criminally investigate or prosecute any alcohol or drug abuse patient.[facility] the event this information is protected by the Federal Confidentiality of Alcohol and Drug Abuse Patient Records regulations: The Federal rules restrict any use of the information to criminally investigate or prosecute any alcohol or drug abuse patient.[facility] HospitalIn the event this information is protected by the Federal Confidentiality of Alcohol and Drug Abuse Patient Records regulations: The Federal rules restrict any use of the information to criminally investigate or prosecute any alcohol or drug abuse patient.[facility] HospitalIn the event this information is protected by the Federal Confidentiality of Alcohol and Drug Abuse Patient Records regulations: The Federal rules restrict any use of the information to criminally investigate or prosecute any alcohol or drug abuse patient.[facility]In the event this information is protected by the Federal Confidentiality of Alcohol and Drug Abuse Patient Records regulations: The Federal rules restrict any use of the information to criminally investigate or prosecute any alcohol or drug abuse patient.[facility] HospitalIn the event this information is protected by the Federal Confidentiality of Alcohol and Drug Abuse Patient Records regulations: The Federal rules restrict any use of the information to criminally investigate or prosecute any alcohol or drug abuse patient.[facility] HospitalIn the event this information is protected by the Federal Confidentiality of Alcohol and Drug Abuse Patient Records regulations: The Federal rules restrict any use of the information to criminally investigate or prosecute any alcohol or drug abuse patient.[facility]In the event this information is protected by the Federal Confidentiality of Alcohol and Drug Abuse Patient Records regulations: The Federal rules restrict any use of the information to criminally investigate or prosecute any alcohol or drug abuse patient.[facility] HospitalIn the event this information is protected by the Federal Confidentiality of Alcohol and Drug Abuse Patient Records regulations: The Federal rules restrict any use of the information to criminally investigate or prosecute any alcohol or drug abuse patient.[facility] PRN Active and Recently Administ ered Medications [...] via IV Push, administer over 3-5 minutes. 09 (Given - Provid er: Kenna Richards RN) pantoprazole (Protonix) injection 40 mg 40 mg, intravenous, Daily, First dose on Sun03/20/25 at 0900, Reconstitute each 40 mg vial with 10 mL NS to make 4 mg/mL solution. 09 (Given - Provid er: Kenna Richards RN) [...] at 1055, For 1 dose, SHAKE WELL 110 (Given - Provid er: Kenna Richards RN) Scheduled Medication Order 04/12/2025 04/13/2025 04/14/2025 famotidine PF (Pepcid) injection 40 mg (COMPLETED) 40 mg, intravenous, Administer over 2 Minutes, Once, On Sun04/14/25 at 1955, For 1 dose 2006 (Given - Provid er: Pedro Charles RN) iohexol (OMNIPaque) 350 mg iodine/mL solution 68 mL (COMPLETED) 68 mL, intravenous, Once in imaging, Starting on Sun04/14/25 at 2101, For 1 dose 2120 (Given - Provid [...] (New Bag - Prov ider: Pedro Charles RN)2100 (Stopped - Provider: Stefanie Wesley RN) FOR [...] BE BASED ON THE PRIMARY CLINICAL RECORDS. [employer] provides no warranty or guarantee of the accuracy or completeness of information in this document.
--- NOTE | 2025-08-02 19:14 | EDS_ITS ---
HPI History of Present Illness Chief Complaint: Chest Pain Detail of Chief Complaint: Left-sided chest pain that is sharp radiates through to her back Informant: patient and family Onset/Context/Timing Onset: Weeks (3) Activity at onset: sudden Timing: Continuous and Waxes and wanes Quality: Positive for Sharp Location: Left Chest Current Severity: Mild Maximum Severity: Severe Worsened By: Coughing; Not Worsened By Exertion, Movement of Arm, Movement of Torso, Eating, Palpation or Breathing Relieved By: Nothing Associated Symptoms: Positive for Dyspnea and Cough (Cough is nonproductive.); Negative for Nausea, Vomiting, Diaphoresis, Fever, Lightheadedness, Acid Reflux or Palpitations Narrative Narrative: Patient is a 34-year-old male with left-sided chest pain described as sharp. It wraps around to his back. He has no history of biliary disease or pancreatitis. He is a smoker. He states he is down to 2 cigarettes a day. No alcohol use. No history of reflux, hiatal hernia or peptic ulcer disease. He denies black or maroon-colored stool. In spite of patient stating he has no history of reflux per review of records indicates he does. He also has history of substance abuse. He denies fever, chills night sweats. He denies rhinorrhea, congestion, postnasal drainage or sore throat. His cough is nonproductive. He has no history of VTE. He denies leg pain, swelling or discoloration. He has had no recent travel or surgery. Prior Similar Symptoms: No Recent Illness/Hospitalization: No CVD Risk Factors: Positive for Smoking; Negative for Hypertension, Diabetes, Hypercholesterolemia or Family History 1' </=55 PE Risk Factors: Negative for Recent Travel/Surgery, Recent Immobilization, Prior DVT or PE, Cancer or OCP + Smoking + >/=35 TAD Risk Factors: Negative for Marfan's Syndrome, Hypertension or Family History [facility] Medical History Gastric reflux Substance abuse Bipolar disorder Smoker Asthma Leg cramps Acid reflux Heart disease COPD (chronic obstructive pulmonary disease) Home Medications ?Medication ?Instructions ?Recorded ?Last Taken ?Type buspirone 10 mg tablet 10 mg PO BID 04/21/25 Unknow n History prednisone 10 mg tablet 10 mg PO DAILY #63 tabs 04/10 11/04 Unknown Rx quetiapine 50 mg tablet,extended 50 mg PO QHS 04/21/25 Unknown History release 24 hr trazodone 50 mg tablet 50 mg PO QHS PRN 04/21/25 Un known History Allergy/AdvReac Type Severity Reaction Status Date / Time Penicillins Allergy Hives Verified 08/02/25 18:13 ibuprofen AdvReac Nausea Verified 08/02/25 18:13 Surgical History History of esophagogastroduodenoscopy (EGD) Hx of hand surgery Social History Smoking Status: Former smoker alcohol intake: current substance use type: heroin and methamphetamine ROS ROS ED Eyes Eyes: Reports none ENT ENT ED: Denies ear pain, rhinorrhea or sore throat Cardiovascular Cardiovascular: Reports chest pain; Denies orthopnea, palpitations, paroxysmal nocturnal dyspnea or racing heartbeat Respiratory/Chest Respiratory/Chest: Reports cough; Denies dyspnea, dyspnea on exertion, orthopnea, paroxysmal nocturnal dyspnea or sputum Gastrointestinal Gastrointestinal: Denies abdominal pain, melena, nausea or vomiting Genitourinary Genitourinary ED: Denies dysuria, hematuria or urinary frequency Musculoskeletal Musculoskeletal: Reports back pain; Denies arthralgias, myalgias or neck pain Psychiatric Psychiatric: Denies anxiety Hematologic/Lymphatic Hematologic/Lymphatic: Denies easy bleeding or easy bruising Allergic/Immunologic Allergic/Immunologic ED: Denies mouth swelling or tongue swelling EXAM Physical Exam Const Vital Signs: 08/02/25 18:13 Temperature 98.2 F Temperature Source Oral Pulse Rate 80 Respiratory Rate 18 Blood Pressure 124/88 H Blood Pressure Mean 100 Pulse Ox 98 Oxygen Delivery Method Room Air Positive well nourished and well developed Constitutional Narrative: Patient began to tell me why he was here his breathing increased and he grabbed his chest General Appearance ED: well developed and NAD; Negative for pallor HEENT Reports TM's clear and moist mucous membranes normocephalic and atraumatic Tympanic Membrane ED: Yes TM's clear Eyes PERRL and EOMs intact bilaterally General Eye ED: Yes pale conjunctiva and scleral icterus Neck no lymphadenopathy, supple and no JVD Chest Wall inspection of chest normal and palpation of chest normal Resp normal respiratory effort and clear to auscultation bilaterally Cardio regular rate, regular rhythm, S1 normal heart sound, S2 normal heart sound and no murmurs GI normal to inspection, nondistended, normoactive bowel sounds, soft to palpation, non-tender, non-distended and no masses; Negative for hepatosplenomegaly Extremity normal to inspection Extremity Narrative: There is no asymmetry, swelling, discoloration, leg vein distention, palpable cords or tenderness along the distribution of the deep venous system. Neuro oriented x3 and CN's II-XII intact bilaterally Sensorium / Orientation: awake and alert Motor Exam: strength 5/5 throughout Psych Mood & Affect: depressed and anxious Skin no rashes or lesions noted and no wounds General Skin Exam: Negative for jaundice or pallor MDM MDM MDM Narrative Medical decision making narrative: Differential diagnosis is cardiac versus noncardiac noncardiac would include GI etiology, pulmonary etiology, doubt pneumothorax. Patient's Wells score is less than 3 and PERC is negative therefore D-dimer was not obtained and workup was not initiated to evaluate for PE since it has been ruled out. History is not consistent with coronary artery disease. Nurse protocol was initiated. Lab Data Attestation: I reviewed the patient's lab results. Lab results narrative: CBC reveals slight elevation in hemoglobin. White count differential are unremarkable. Electrolyte panel is unremarkable. Glucose elevated 104. First troponin is less than 6. Labs: Laboratory Results - last 24 hr 08/02/25 18:00 WBC 10.5 RBC 6.09 Hgb 17.3 H Hct 50.0 MCV 82.1 MCH 28.4 MCHC 34.6 RDW Std Deviation 38.0 RDW Coeff of [place] 12.7 Plt Count 250 MPV 10.5 Immature Gran % (Auto) 0.400 Neut % (Auto) 70.6 H Lymph % (Auto) 19.4 [place] % (Auto) 7.4 Eos % (Auto) 1.4 Baso % (Auto) 0.8 Absolute Neuts (auto) 7.4 Absolute Lymphs (auto) 2.03 Nucleated RBC % 0 Sodium 140 Potassium 3.7 Chloride 103 Carbon Dioxide 22.5 Anion Gap 15 BUN 14 Creatinine 1.18 Est GFR (MDRD) Non-Af 83 BUN/Creatinine Ratio 12.0 Glucose 104 H Calcium 9.8 Troponin T High Sens < 6 Radiography Chest X-Ray - ED: 1 View, Read by ED Physician, Normal, Heart, Mediastinum, Bony Structures, No Acute Disease and Chronic Changes Diagnostic Testing: Clinical Impression(s) from Imaging Studies Chest X-Ray 08/02/25 18:50 IMPRESSION: No focal consolidations. Reading Location: [facility] EK Initial EKG: Attestation: I personally reviewed and interpreted this EKG as follows: Interpretation: Sinus Rhythm (Normal EKG with a rate of 71. ID interval is 154 ms or cures duration 96 ms. QT duration 190 ms. [place] is normal.) Treatment and Re-Evaluation :: With 3 weeks of pain cardiac has been ruled out. PE is not in consideration. His history and physical is not consistent with pneumothorax, pneumonia or thoracic aortic dissection. Patient does frequently Emergency Department piquantly. He has been informed the cause of his pain is unknown. Comments:: Patient was offered NSAID for his chest pain. He states he is allergic. His allergy is nausea. He was informed this is not an allergy. He began to yell. At which point I told him he can talk to his doctor since his doctor told him he is allergic and nausea is not an allergy. Discharge Plan Triage Chief Complaint: Chest Pain Other Complaint: Shortness of Breath ED Provider: Ki Cunningham Dx/Rx/DC Orders Clinical Impression: Left-sided chest pain, Tobacco use, Acid reflux Instructions: ED Chest Pain, Noncardiac Prescriptions: No Action trazodone 50 mg tablet 50 mg PO QHS PRN buspirone 10 mg tablet 10 mg PO BID quetiapine 50 mg tablet extended release 24 hr 50 mg PO QHS prednisone 10 mg tablet 10 mg PO DAILY Qty: 63 0RF Rx Instructions: 60 mg p.o. daily for 3 days, 50 mg p.o. daily for 3 days, 40 mg p.o. daily for 3 days, 30 mg p.o. daily for 3 days, 20 mg p.o. daily for 3 days, 10 mg p.o. daily for 3 days. Primary Care Provider: Jennifer Mathur Referrals: Jennifer Mathur, [facility] [Primary Care Provider, Family Practice] - 3-5 Days Print Language: Thai Disposition Disposition: Home, Self Care
--- NOTE | 2025-08-02 19:30 | ED.RN ---
Prior to discharge, the patient's assessment was completed however the patient refused vital signs at this time, nor did the patient answer many required questions for this RN. The patient stated just get the IV out, I need to go to another hospital, I don't need any fucking vitals.
== END 2025-08-02 19:33 | disposition home or self-care (01) ==
PROVIDERS: Emergency Provider Emergency Medicine; PCP Nurse Practitioner Family; Visit Provider Emergency Medicine
DX: R07.9 Chest pain, unspecified (principal); K21.9 Gastro-esophageal reflux disease without esophagitis; F17.210 Nicotine dependence, cigarettes, uncomplicated
CPT/HCPCS: 71045; 80048; 84484; 85025; 93005; 99285